=== PATIENT | male | born 1945 | race Caucasian/White ===

== ENCOUNTER 2017-01-23 13:57 | Inpatient (IN) | payer MEDICARE, BC ==
[2017-01-23] MEDS ORDERED: SODIUM CHLORIDE 0.9% 500 ML IV STA (14:13)
[2017-01-23] MEDS ORDERED: SODIUM CHLORIDE 0.9% 1,000 ML IV STA (14:13)
[2017-01-23] MEDS ORDERED: MECLIZINE 12.5 MG TAB PO STA (14:15)
--- NOTE | 2017-01-23 14:40 | ED ---
General Adult HPI - General Chief complaint: Syncope Stated complaint: Near Syncope Time Seen by Provider: 01/23/17 14:07 Source: EMS Mode of arrival: EMS Limitations: no limitations - History of Present Illness Initial comments: This 71-year-old white male presents with a complaint of some dizziness which started yesterday. He describes it as a lightheadedness or unsteadiness but not a spinning sensation. He states that he fell 3 times yesterday. He did obtain some back pain in his lumbar spine. He denies any other injuries. He denies any head injury, neck pain, or thoracic pain. He denies any chest pain, shortness of breath, abdominal pain, fevers, or recent infections. There is been no urinary symptoms. He states that he has had similar symptoms in the past due to hypoglycemia. He is a diabetic and is also blind. He denies any other complaints or modifying factors. - Related Data Home Medications Medication Instructions Recorded Confirmed metFORMIN HCL [Glucophage] 500 mg PO BID 05/05/16 01/23/17 sitaGLIPtin [Januvia] 100 mg PO DAILY 05/05/16 01/23/17 Previous Rx's Medication Instructions Recorded Lisinopril [Prinivil] 5 mg PO DAILY #30 tab 02/23/16 Allergies Allergy/AdvReac Type Severity Reaction Status Date / Time hydrocodone bitartrate AdvReac Nausea Verified 01/23/17 14:33 [From Vicodin] Review of Systems ROS Statement: Those systems with pertinent positive or pertinent negative responses have been documented in the HPI. ROS Other: All systems not noted in ROS Statement are negative. 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; right sided deficits from previous stroke History of Any Multi-Drug Resistant Organisms: None Reported Past Surgical History: No Surgical Hx Reported Additional Past Surgical History / Comment(s): unknown Past Anesthesia/Blood Transfusion Reactions: No Reported Reaction Past Psychological History: No Psychological Hx Reported Smoking Status: Former smoker Past Alcohol Use History: None Reported Past Drug Use History: None Reported - Past Family History Father Family Medical History: Diabetes Mellitus Mother Family Medical History: Dementia, Diabetes Mellitus Brother(s) Family Medical History: Unable to Obtain General Exam - General Exam Comments Initial Comments: GENERAL: The patient is well nourished and well hydrated. VITAL SIGNS: Heart rate, blood pressure, respiratory rate reviewed as recorded in nurse's notes. EYES: There is a whitish opacification noted over both corneas. ENT: No external evidence of injury, swelling, or ecchymosis. Airway is patent. Throat is clear. NECK: Nontender. No swelling or evidence of injury. No subcutaneous emphysema. Trachea is midline. No thyroid mass. HEART: Regular rate and rhythm. Good peripheral pulses. LUNGS/CHEST: Breath sounds clear and equal bilaterally. No rales, rhonchi, or wheezes. No ecchymosis, subcutaneous emphysema, or tenderness. ABDOMEN: Abdomen soft without tenderness. No palpable masses or organomegaly. No peritoneal signs. No abdominal wall swelling or ecchymosis. EXTREMITIES: No extremity tenderness. Normal muscle tone and function. There is mild tenderness noted to the perilumbar musculature. There is no step-off deformities noted. NEUROLOGIC: Sensation is grossly intact. Cranial nerve exam reveals face is symmetrical, tongue is midline, speech is clear. SKIN: No abrasions or ecchymosis is noted. No induration or masses noted. PSYCHIATRIC: Alert and oriented. Appropriate behavior and judgment. Limitations: no limitations Course Vital Signs 01/23/17 01/23/17 01/23/17 14:07 14:18 16:16 Temperature 98.7 F Pulse Rate 105 H 83 Respiratory 20 18 Rate Blood Pressure 212/105 176/84 129/71 O2 Sat by Pulse 93 L 93 L Oximetry Medical Decision Making - Medical Decision Making The patient was seen and examined. All diagnostics were reviewed. An IV is started he is mildly hydrated. He also receives Antivert. His laboratory does show slightly elevated blood glucose but no other acute processes. The computed tomography scan of the brain showed some incidental findings but no acute process. The chest x-ray is negative for acute process. The x-ray of the lumbar spine shows an old T12 compression fracture with degenerative changes and spondylolisthesis. On recheck, he is still dizzy. He now states that he fell a total of 4 times. He apparently fell 3 times yesterday and once today. He denies any syncopal episodes. Overall, I do not feel as though he safe to be discharged home as he is blind, falling, and dizzy. He may need additional home care for further ECF placement. The case will be discussed with internal medicine and admitted to the hospital for further treatment. Exact cause of his dizziness is not definitively determined. On reexamination his blood pressures 226/108 and he will receive some labetalol intravenously. The troponin came back mildly elevated as well and he receives some aspirin as well as Nitropaste. - Lab Data Result diagrams: 01/23/17 14:25 01/23/17 15:28 Lab Results 01/23/17 01/23/17 01/23/17 Range/Units 14:25 15:28 15:28 WBC 8.6 (3.8-10.6) k/uL RBC 4.16 L (4.30-5.90) m/uL Hgb 13.1 (13.0-17.5) gm/dL Hct 37.8 L (39.0-53.0) % MCV 90.9 (80.0-100.0) fL MCH 31.5 (25.0-35.0) pg MCHC 34.6 (31.0-37.0) g/dL RDW 13.2 (11.5-15.5) % Plt Count 247 (150-450) k/uL Neutrophils % 56 % Lymphocytes % 31 % Monocytes % 9 % Eosinophils % 1 % Basophils % 1 % Neutrophils # 4.8 (1.3-7.7) k/uL Lymphocytes # 2.7 (1.0-4.8) k/uL Monocytes # 0.8 (0-1.0) k/uL Eosinophils # 0.1 (0-0.7) k/uL Basophils # 0.1 (0-0.2) k/uL PT 10.3 (9.0-12.0) sec INR 1.0 (<1.2) APTT 22.9 (22.0-30.0) sec Sodium 140 (137-145) mmol/L Potassium 4.2 (3.5-5.1) mmol/L Chloride 102 (98-107) mmol/L Carbon Dioxide 28 (22-30) mmol/L Anion Gap 10 mmol/L BUN 20 (9-20) mg/dL Creatinine 0.98 (0.66-1.25) mg/dL Est GFR (MDRD) Af Amer >60 (>60 ml/min/1.73 sqM) Est GFR (MDRD) Non-Af >60 (>60 ml/min/1.73 sqM) Glucose 179 H (74-99) mg/dL Calcium 8.7 (8.4-10.2) mg/dL Phosphorus 3.2 (2.5-4.5) mg/dL Magnesium 1.6 (1.6-2.3) mg/dL Total Bilirubin 0.8 (0.2-1.3) mg/dL AST 18 (17-59) U/L ALT 32 (21-72) U/L Alkaline Phosphatase 107 (38-126) U/L Total Creatine Kinase (55-170) U/L CK-MB (CK-2) (0.0-2.4) ng/mL CK-MB (CK-2) Rel Index Troponin I (0.000-0.034) ng/mL Total Protein 6.6 (6.3-8.2) g/dL Albumin 3.8 (3.5-5.0) g/dL 01/23/17 Range/Units 15:28 WBC (3.8-10.6) k/uL RBC (4.30-5.90) m/uL Hgb (13.0-17.5) gm/dL Hct (39.0-53.0) % MCV (80.0-100.0) fL MCH (25.0-35.0) pg MCHC (31.0-37.0) g/dL RDW (11.5-15.5) % Plt Count (150-450) k/uL Neutrophils % % Lymphocytes % % Monocytes % % Eosinophils % % Basophils % % Neutrophils # (1.3-7.7) k/uL Lymphocytes # (1.0-4.8) k/uL Monocytes # (0-1.0) k/uL Eosinophils # (0-0.7) k/uL Basophils # (0-0.2) k/uL PT (9.0-12.0) sec INR (<1.2) APTT (22.0-30.0) sec Sodium (137-145) mmol/L Potassium (3.5-5.1) mmol/L Chloride (98-107) mmol/L Carbon Dioxide (22-30) mmol/L Anion Gap mmol/L BUN (9-20) mg/dL Creatinine (0.66-1.25) mg/dL Est GFR (MDRD) Af Amer (>60 ml/min/1.73 sqM) Est GFR (MDRD) Non-Af (>60 ml/min/1.73 sqM) Glucose (74-99) mg/dL Calcium (8.4-10.2) mg/dL Phosphorus (2.5-4.5) mg/dL Magnesium (1.6-2.3) mg/dL Total Bilirubin (0.2-1.3) mg/dL AST (17-59) U/L ALT (21-72) U/L Alkaline Phosphatase (38-126) U/L Total Creatine Kinase 61 (55-170) U/L CK-MB (CK-2) 1.2 (0.0-2.4) ng/mL CK-MB (CK-2) Rel Index 2.0 Troponin I 0.043 H* (0.000-0.034) ng/mL Total Protein (6.3-8.2) g/dL Albumin (3.5-5.0) g/dL Disposition Clinical Impression: Dizziness, Multiple falls, Lumbar back pain, Hyperglycemia, Diabetes, Hypertensive crisis, Elevated troponin, Inability to walk Disposition: ADMITTED IP TO THIS [facility] Condition: Fair Time of Disposition: 16:26 Decision Date: 01/23/17 Decision Time: 16:26
[2017-01-23 14:42] LABS: Basophils # (A) 0.1 k/uL (0-0.2); Basophils % (A) 1 %; CH 30.7; CHCM 33.9; Eosinophils # (A) 0.1 k/uL (0-0.7); Eosinophils % (A) 1 %; HCT 37.8 % (39.0-53.0); HDW 3.21; HGB 13.1 gm/dL (13.0-17.5); Luc # (Auto) 0.23; Luc % (Auto) 3; Lymphocytes # (A) 2.7 k/uL (1.0-4.8); Lymphocytes % (A) 31 %; MCH 31.5 pg (25.0-35.0); MCHC 34.6 g/dL (31.0-37.0); MCV 90.9 fL (80.0-100.0); Mean Platelet Volume 8.2; Monocytes # (A) 0.8 k/uL (0-1.0); Monocytes % (A) 9 %; Neutrophils # (A) 4.8 k/uL (1.3-7.7); Neutrophils % (A) 56 %; RBC 4.16 m/uL (4.30-5.90); RDW 13.2 % (11.5-15.5); WBC 8.6 k/uL (3.8-10.6); WBC (Perox) 8.87
--- NOTE | 2017-01-23 15:17 | CT ---
EXAMINATION TYPE: CT brain wo con DATE OF EXAM: 01/23/2017 COMPARISON: Previous study dated 05/28/2015. HISTORY: Dizziness and near syncope. CT DLP: 1156.00 mGycm Automated exposure control for dose reduction was used. FINDINGS: There are moderate changes of sulcal prominence and ventriculomegaly, compatible with atrophic change . There is diffuse periventricular white matter lucency, compatible with chronic white matter ischemi c change. There is no acute focal lesion, mass effect or midline shift identified. I do not see evide nce of intracranial blood. There is a 2.8 cm retention cyst or polyp involving the left maxillary sinus. Visualized portions of the paranasal sinuses and mastoids are otherwise clear. IMPRESSION: 1. NO ACUTE INTRACRANIAL ABNORMALITY. 2. ATROPHIC CHANGE. 3. CHRONIC WHITE MATTER ISCHEMIC CHANGE. 4. 2.8 CM LEFT MAXILLARY RETENTION CYST OR POLYP.
--- NOTE | 2017-01-23 15:25 | XR ---
EXAMINATION TYPE: XR chest 2V DATE OF EXAM: 01/23/2017 COMPARISON: NONE HISTORY: Dizziness and fall TECHNIQUE: Frontal and lateral views of the chest are obtained. FINDINGS: There are low lung volumes. There is no focal air space opacity, pleural effusion, or pneum othorax seen. The cardiac silhouette size is within normal limits. The osseous structures are inta ct. Mild degenerative changes of the thoracic spine are noted. IMPRESSION: No acute cardiopulmonary process.
--- NOTE | 2017-01-23 15:25 | XR ---
EXAMINATION TYPE: XR foot limited LT , 2 VIEWS DATE OF EXAM ORDERED: 01/23/2017 HISTORY: Pain. COMPARISON: None. FINDINGS: There is moderately severe degenerative changes in the left first MTP joint. No fracture, dislocation or osseous destructive lesion is seen. There is vascular calcification. There is a planta r calcaneal spur. IMPRESSION: 1. NO ACUTE OSSEOUS LESION. 2. DEGENERATIVE CHANGE.
--- NOTE | 2017-01-23 15:26 | XR ---
EXAM TYPE: LUMBAR SPINE X RAY SERIES COMPARISON: 05/05/2016 HISTORY: Pain TECHNIQUE: 3 views are submitted. FINDINGS: Alignment is anatomic. The pedicles are intact. The transverse processes are intact. There is no s pondylolysis or spondylolisthesis. Diffuse osteopenia noted. There is a grade 1 anterolisthesis L4 a nd L5. Multilevel moderate to severe degenerative disc disease. Very mild superior endplate deformity T12. IMPRESSION: 1. Multilevel degenerative disc disease with the stable appearing mild wedge deformity T12. 2. Grade 1 anterolisthesis L4 on L5..
[2017-01-23 15:42] LABS: Partial Thromboplastin Time 22.9 sec (22.0-30.0); Prothrombin Time 10.3 sec (9.0-12.0)
[2017-01-23 15:50] LABS: ALT 32 U/L (21-72); AST 18 U/L (17-59); Alkaline Phosphatase 107 U/L (38-126); Anion Gap 10 mmol/L; Blood Urea Nitrogen 20 mg/dL (9-20); Calcium 8.7 mg/dL (8.4-10.2); Carbon Dioxide 28 mmol/L (22-30); Chloride 102 mmol/L (98-107); Glucose 179 mg/dL (74-99); Magnesium 1.6 mg/dL (1.6-2.3); Non-African American GFR(MDRD) >60 (>60 ml/min/1.73 sqM); Phosphorous 3.2 mg/dL (2.5-4.5); Potassium 4.2 mmol/L (3.5-5.1); Sodium 140 mmol/L (137-145); Total Bilirubin 0.8 mg/dL (0.2-1.3); Total Protein 6.6 g/dL (6.3-8.2)
[2017-01-23] MEDS ORDERED: LABETALOL 5 MG/ML VIAL MDV IVP STA (16:04)
[2017-01-23 16:10] LABS: Creatine Kinase MB 1.2 ng/mL (0.0-2.4)
[2017-01-23 16:12] LABS: Troponin I 0.043 ng/mL (0.000-0.034)
[2017-01-23] MEDS ORDERED: ASPIRIN 81 MG PO STA (16:25)
[2017-01-23] MEDS ORDERED: NITROGLYCERIN OINT 1 INCH/GM PACKET TOPICAL STA (16:25)
[2017-01-23] MEDS ORDERED: NITROGLYCERIN SL TABS 0.4 MG TAB SUBLINGUAL PRN (16:28)
[2017-01-23] MEDS ORDERED: LABETALOL 5 MG/ML VIAL MDV IVP PRN (16:32)
[2017-01-23] MEDS ORDERED: MECLIZINE 25 MG TAB PO PRN (16:34)
[2017-01-23 17:28] LABS: Glucose,Whole Blood 164 mg/dL (75-99)
[2017-01-23] MEDS: NITROGLYCERIN OINT 1 INCH/GM PACKET TOPICAL SCH ×2 (17:52→23:08)
[2017-01-23] MEDS: metFORMIN 500 MG TAB PO SCH (17:52)
[2017-01-23] MEDS: INSULIN LISPRO (humaLOG) 300 UNIT/3 ML VIAL SQ SCH ×2 (17:52→21:15)
[2017-01-23 21:13] LABS: Glucose,Whole Blood 154 mg/dL (75-99)
[2017-01-23 21:45] LABS: Creatine Kinase MB 1.2 ng/mL (0.0-2.4)
[2017-01-23 21:50] LABS: Troponin I 0.04 ng/mL (0.000-0.034)
[2017-01-23 22:20] LABS: Hemoglobin A1C 7.3 % (4.2-6.1)
[2017-01-24 03:31] LABS: Appearance,Urine Clear (Clear); Bilirubin,Urine Negative (Negative); Glucose,Urine (UA) Negative (Negative); Ketones,Urine Negative (Negative); Leukocyte Esterase,Urine Negative (Negative); Nitrite,Urine Negative (Negative); PH, Urine 5.5 (5.0-8.0); Particle Count 686; Protein,Urine 1+ (Negative); RBC,Urine <1 /hpf (0-5); Specific Gravity,Urine 1.007 (1.001-1.035); UA Billing (MACRO vs. MICRO) MICRO; Urobilinogen,Urine <2.0 mg/dL (<2.0); WBC,Urine 2 /hpf (0-5)
[2017-01-24 04:00] LABS: Creatine Kinase MB 1.1 ng/mL (0.0-2.4)
[2017-01-24 04:08] LABS: Troponin I 0.037 ng/mL (0.000-0.034)
[2017-01-24 04:22] LABS: Cholesterol 156 mg/dL (<200); HDL Cholesterol 33 mg/dL (40-60)
[2017-01-24 05:51] LABS: Glucose,Whole Blood 130 mg/dL (75-99)
[2017-01-24] MEDS: INSULIN LISPRO (humaLOG) 300 UNIT/3 ML VIAL SQ SCH ×4 (06:03→21:19)
[2017-01-24] MEDS: NITROGLYCERIN OINT 1 INCH/GM PACKET TOPICAL SCH ×4 (06:29→23:19)
[2017-01-24] MEDS ORDERED: LISINOPRIL 5 MG TAB PO SCH (09:00)
[2017-01-24] MEDS: metFORMIN 500 MG TAB PO SCH ×2 (09:38→17:37)
[2017-01-24] MEDS: LINAGLIPTIN 5 MG TABLET PO SCH (13:34)
[2017-01-24] MEDS: ASPIRIN 325 MG TAB PO SCH (13:34)
[2017-01-24] MEDS: SODIUM CHLORIDE 0.9% 1,000 ML IV SCH ×2 (13:37→23:19)
[2017-01-24 14:07] LABS: Glucose,Whole Blood 138 mg/dL (75-99)
--- NOTE | 2017-01-24 14:40 | P.HPIM ---
History of Present Illness This 71-year-old white male presents with a complaint of some dizziness which started yesterday. He describes it as a lightheadedness or unsteadiness but not a spinning sensation. He states that he fell 3 times yesterday. He did obtain some back pain in his lumbar spine. He denies any other injuries. He denies any head injury, neck pain, or thoracic pain. He denies any chest pain, shortness of breath, abdominal pain, fevers, or recent infections. There is been no urinary symptoms. He states that he has had similar symptoms in the past due to hypoglycemia. He is a diabetic and is also blind. He denies any other complaints or modifying factors. Patient denied any chest pain no significant ST-T wave changes on the EKG, patient had minimal elevated troponins of 0.03 and 0.04 and which is stable at that level because of which patient was admitted yesterday. I do not believe patient has an acute coronary syndromes. Patient's falls are probably because of his blindness and will need occupational therapy help and patient has generalized deconditioning will need physical therapy may need to be discharged to subacute rehabilitation. Will opt an echocardiogram to make sure there are no new wall motion abnormalities patient's previous echocardiogram was reviewed which was essentially within normal limits except for some anterobasal wall motion abnormalities. Review of Systems REVIEW OF SYSTEMS: CONSTITUTIONAL: No fever, no malaise, no fatigue. HEENT: No recent visual problems or hearing problems. Denied any sore throat. CARDIOVASCULAR: No chest pain, orthopnea, PND, no palpitations, PULMONARY: No shortness of breath, no cough, no hemoptysis. GASTROINTESTINAL: No diarrhea, no nausea, no vomiting, no abdominal pain. Normoactive bowel sounds. NEUROLOGICAL: No headaches, no weakness, no numbness. HEMATOLOGICAL: Denies any bleeding or petechiae. GENITOURINARY: Denies any burning micturition, frequency, or urgency. MUSCULOSKELETAL/RHEUMATOLOGICAL: Denies any joint pain, swelling, or any muscle pain. ENDOCRINE: Denies any polyuria or polydipsia. The rest of the 14-point review of systems is negative. 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 ddd, old t12 compression fx, spopndylothesis ( per chest xray) History of Any Multi-Drug Resistant Organisms: None Reported Past Surgical History: No Surgical Hx Reported Additional Past Surgical History / Comment(s): unknown Past Anesthesia/Blood Transfusion Reactions: No Reported Reaction Smoking Status: Former smoker - Past Family History Father Family Medical History: Diabetes Mellitus Mother Family Medical History: Dementia, Diabetes Mellitus Brother(s) Family Medical History: Unable to Obtain Medications and Allergies Home Medications Medication Instructions Recorded Confirmed Type metFORMIN HCL [Glucophage] 500 mg PO BID 05/05/16 01/23/17 History sitaGLIPtin [Januvia] 100 mg PO DAILY 05/05/16 01/23/17 History Allergies Allergy/AdvReac Type Severity Reaction Status Date / Time hydrocodone bitartrate AdvReac Nausea Verified 01/23/17 14:33 [From Vicodin] Physical Exam Vitals: Vital Signs Temp Pulse Pulse Resp BP BP Pulse Ox 01/24/17 11:47 100.3 F H 95 16 168/100 95 01/24/17 08:00 99.8 F H 95 16 132/73 95 01/24/17 04:00 97.0 F L 89 14 142/80 96 01/23/17 23:09 97.6 F 84 16 98/60 94 L 01/23/17 20:00 98.3 F 92 16 148/68 98 01/23/17 18:30 97.2 F L 87 17 189/101 96 01/23/17 16:16 83 18 129/71 93 L Intake and Output 01/23/17 01/24/17 01/24/17 22:59 06:59 14:59 Intake Total 0 Output Total 25 350 Balance -25 -350 Intake: Intake, IV Titration 0 Amount Sodium Chloride 0.9% 1, 0 000 ml @ 100 mls/hr IV . Q10H STA Rx#:[id number] Output: Urine 25 350 Other: Voiding Method Urinal Urinal Urinal Diaper Diaper Diaper # Voids 1 Weight 90.5 kg PHYSICAL EXAMINATION: GENERAL: The patient is alert and oriented x3, not in any acute distress. Well developed, well nourished. HEENT: Patient is legally blind No scleral icterus. No conjunctival pallor. Normocephalic, atraumatic. No pharyngeal erythema. No thyromegaly. CARDIOVASCULAR: S1 and S2 present. No murmurs, rubs, or gallops. PULMONARY: Chest is clear to auscultation, no wheezing or crackles. ABDOMEN: Soft, nontender, nondistended, normoactive bowel sounds. No palpable organomegaly. MUSCULOSKELETAL: No joint swelling or deformity. EXTREMITIES: No cyanosis, clubbing, or pedal edema. NEUROLOGICAL: Gross neurological examination did not reveal any focal deficits. SKIN: No rashes. Results CBC & Chem 7: 01/23/17 14:25 01/23/17 15:28 Labs: Abnormal Lab Results - Last 24 Hours (Table) 01/23/17 01/23/17 01/23/17 Range/Units 14:25 15:28 15:28 RBC 4.16 L (4.30-5.90) m/uL Hct 37.8 L (39.0-53.0) % Glucose 179 H (74-99) mg/dL POC Glucose (mg/dL) (75-99) mg/dL Hemoglobin A1c (4.2-6.1) % Total Creatine Kinase (55-170) U/L Troponin I 0.043 H* (0.000-0.034) ng/mL Triglycerides (<150) mg/dL HDL Cholesterol (40-60) mg/dL Urine Protein (Negative) 01/23/17 01/23/17 01/23/17 Range/Units 17:24 20:52 20:52 RBC (4.30-5.90) m/uL Hct (39.0-53.0) % Glucose (74-99) mg/dL POC Glucose (mg/dL) 164 H (75-99) mg/dL Hemoglobin A1c 7.3 H (4.2-6.1) % Total Creatine Kinase 53 L (55-170) U/L Troponin I 0.040 H* (0.000-0.034) ng/mL Triglycerides (<150) mg/dL HDL Cholesterol (40-60) mg/dL Urine Protein (Negative) 01/23/17 01/24/17 01/24/17 Range/Units 21:12 02:57 02:57 RBC (4.30-5.90) m/uL Hct (39.0-53.0) % Glucose (74-99) mg/dL POC Glucose (mg/dL) 154 H (75-99) mg/dL Hemoglobin A1c (4.2-6.1) % Total Creatine Kinase 51 L (55-170) U/L Troponin I 0.037 H* (0.000-0.034) ng/mL Triglycerides 218 H (<150) mg/dL HDL Cholesterol 33 L (40-60) mg/dL Urine Protein (Negative) 01/24/17 01/24/17 01/24/17 Range/Units 03:15 05:50 11:55 RBC (4.30-5.90) m/uL Hct (39.0-53.0) % Glucose (74-99) mg/dL POC Glucose (mg/dL) 130 H 138 H (75-99) mg/dL Hemoglobin A1c (4.2-6.1) % Total Creatine Kinase (55-170) U/L Troponin I (0.000-0.034) ng/mL Triglycerides (<150) mg/dL HDL Cholesterol (40-60) mg/dL Urine Protein 1+ H (Negative) Thrombosis Risk Factor Assmnt - Choose All That Apply Any of the Below Risk Factors Present?: Yes Each Factor Represents 1 point: Abnormal pulmonary function (COPD), Obesity ( BMI >25) Other Risk Factors: Yes Each Risk Factor Represents 2 Points: Age 61-74 years Other congenital or acquired thrombophilia - If yes, enter type in comment: No Thrombosis Risk Factor Assessment Total Risk Factor Score: 4 Thrombosis Risk Factor Assessment Level: Moderate Risk Assessment and Plan Plan: #1 fall: Probably because of his visual issues and legal blindness. Patient will need occupational therapy. Patient had does have generalized deconditioning. Never had any syncopal episode. #2 low-grade fever: No signs or symptoms of a of infection were appreciated will obtain blood cultures monitor him here today patient will not be started on antibiotics yet. #3 minimal elevation of troponins: Etiology of elevated troponins is not clear at this time but does not appear to have non-ST elevation myocardial infarction not high enough to say non-ST elevation microinfarction patient doesn't have any other symptoms will continue with his aspirin and statin. #4 generalized deconditioning: Patient will need physical therapy may need to go to rehabilitation subacute. #5 type 2 diabetes mellitus: Well controlled blood sugars will continue with the home regimen. #6 COPD without any acute exacerbation. #7 hypertension: Well-controlled blood pressures continue the same dose of lisinopril
[2017-01-24 17:00] LABS: Glucose,Whole Blood 139 mg/dL (75-99)
--- NOTE | 2017-01-24 18:12 | ECHOF ---
Referral Reason:elevated troponins MEASUREMENTS -------- HEIGHT: 157.5 cm WEIGHT: 90.3 kg BP: 168/100 IVSd: 1.4 cm (0.6 - 1.1) LVIDd: 4.5 cm (3.9 - 5.3) LVPWd: 1.6 cm (0.6 - 1.1) IVSs: 1.6 cm LVIDs: 3.8 cm LVPWs: 1.7 cm Ao Diam: 3.6 cm (2.0 - 3.7) AV Cusp: 1.8 cm (1.5 - 2.6) LA Diam: 3.6 cm (2.7 - 3.8) MV EXCURSION: 9.718 mm (> 18.000) MV EF SLOPE: 75 mm/s (70 - 150) EPSS: 2.2 cm MV E Sanchez: 1.19 m/s MV DecT: 300 ms MV A Sanchez: 1.63 m/s MV E/A Ratio: 0.73 AV maxP.57 mmHg AV meanP.01 mmHg AR PHT: 930 ms RAP: 5.00 mmHg RVSP: 12.24 mmHg FINDINGS -------- This was a technically difficult study with suboptimal views. There is moderate concentric left ventricular hypertrophy. Overall left ventricular systolic function is mild-moderately impaired with, an EF between 40 - 45 %. Inferiorlateral Hypokinesis Inferior basal Hypokinesis The right ventricle is normal in size and function. The left atrium is normal in size. The right atrium is normal in size. 1.5mg of Definity was utilized for enhancement of images Aortic valve is trileaflet and is mildly thickened. There is mild aortic stenosis present. Peak/mean gradient across the Aortic Valve is 17.57mmHg / 9.01mmHg. The mitral valve leaflets are mildly thickened. Mild mitral annular calcification present. Mild mitral regurgitation is present. Mild tricuspid regurgitation present. The right ventricular systolic pressure, as measured by Doppler, is 12.24mmHg. Pulmonic valve appears structurally normal. The aortic root size is normal. The pericardium is normal. CONCLUSIONS -------- 1. This was a technically difficult study with suboptimal views. 2. There is mild aortic stenosis present. 3. Peak/mean gradient across the Aortic Valve is 17.57mmHg / 9.01mmHg. 4. The mitral valve leaflets are mildly thickened. 5. Mild mitral annular calcification present. 6. Mild mitral regurgitation is present. 7. Mild tricuspid regurgitation present. 8. The right ventricular systolic pressure, as measured by Doppler, is 12.24mmHg. 9. Pulmonic valve appears structurally normal. 10. The aortic root size is normal. 11. The pericardium is normal. 12. There is moderate concentric left ventricular hypertrophy. 13. Inferiorlateral Hypokinesis 14. Inferior basal Hypokinesis 15. The right ventricle is normal in size and function. 16. The left atrium is normal in size. 17. The right atrium is normal in size. 18. 1.5mg of Definity was utilized for enhancement of images 19. Aortic valve is trileaflet and is mildly thickened. OUTREACH REPRESENTATIVE: Brenda Ragland RDCS
[2017-01-24 20:46] LABS: Glucose,Whole Blood 127 mg/dL (75-99)
[2017-01-24] MEDS ORDERED: LISINOPRIL 2.5 MG TAB PO SCH (23:45)
[2017-01-25] MEDS ORDERED: LISINOPRIL 5 MG TAB PO SCH (00:58)
[2017-01-25] MEDS: CARVEDILOL 6.25 MG TAB PO SCH ×2 (02:17→06:53)
[2017-01-25] MEDS: NITROGLYCERIN OINT 1 INCH/GM PACKET TOPICAL SCH ×4 (05:18→23:27)
[2017-01-25 06:16] LABS: Glucose,Whole Blood 136 mg/dL (75-99)
[2017-01-25] MEDS: INSULIN LISPRO (humaLOG) 300 UNIT/3 ML VIAL SQ SCH ×4 (06:53→21:11)
[2017-01-25] MEDS: metFORMIN 500 MG TAB PO SCH ×3 (06:53→18:20)
[2017-01-25] MEDS: LINAGLIPTIN 5 MG TABLET PO SCH (08:33)
[2017-01-25] MEDS: ASPIRIN 325 MG TAB PO SCH (08:33)
[2017-01-25] MEDS: SODIUM CHLORIDE 0.9% 1,000 ML IV SCH ×2 (08:33→17:28)
[2017-01-25] MEDS ORDERED: RX INFO: IV CONTRAST WAS GIVEN 1 EACH MISC MISCELLANE PRN (11:30)
[2017-01-25 12:01] LABS: Glucose,Whole Blood 115 mg/dL (75-99)
--- NOTE | 2017-01-25 12:33 | P.PN ---
Subjective 71-year-old gentleman was admitted secondary to falls which is again secondary to visual issues. Patient is minimally elevated troponin because of which we echocardiac was obtained which showed the similar changes as the previous echocardiogram with infra-basilar inferolateral wall motion abnormalities. Patient was started on beta eduardo. Patient is hypotensive because of which L lisinopril but his can you. Patient was tachycardic because of which I'm obtaining a TSH and d-dimer was opted which is on the high normal side. Because of which my suspicion is extremely low for pulmonary embolism. Patient will be transferred out of [facility] to care. Patient will need placement and help with physical therapy and occupational therapy. Patient will benefit from statin as well. Patient had a low-grade fever all the septic workup is negative and no more episodes of fever. Patient denied any fever, chills, nausea, vomiting Objective - Vital Signs Vital signs: Vital Signs Temp 97.8 F 01/25/17 11:54 Pulse 93 01/25/17 11:54 Resp 20 01/25/17 11:54 BP 104/55 01/25/17 11:54 Pulse Ox 96 01/25/17 11:54 Intake & Output 01/24/17 01/25/17 01/25/17 18:59 06:59 18:59 Intake Total 100 240 120 Balance 100 240 120 Weight 90.4 kg Intake: Oral 100 240 120 Other: Voiding Method Urinal Urinal Urinal Diaper Diaper Diaper # Voids 1 2 - Exam GENERAL: The patient is alert and oriented x3, not in any acute distress. Well developed, well nourished. HEENT: Patient is legally blind No scleral icterus. No conjunctival pallor. Normocephalic, atraumatic. No pharyngeal erythema. No thyromegaly. CARDIOVASCULAR: S1 and S2 present. No murmurs, rubs, or gallops. PULMONARY: Chest is clear to auscultation, no wheezing or crackles. ABDOMEN: Soft, nontender, nondistended, normoactive bowel sounds. No palpable organomegaly. MUSCULOSKELETAL: No joint swelling or deformity. EXTREMITIES: No cyanosis, clubbing, or pedal edema. NEUROLOGICAL: Gross neurological examination did not reveal any focal deficits. SKIN: No rashes. - Labs CBC & Chem 7: 01/23/17 14:25 01/23/17 15:28 Labs: Abnormal Lab Results - Last 24 Hours (Table) 01/24/17 01/24/17 01/24/17 Range/Units 11:55 16:57 20:44 D-Dimer (<0.60) mg/L FEU POC Glucose (mg/dL) 138 H 139 H 127 H (75-99) mg/dL 01/25/17 01/25/17 01/25/17 Range/Units 06:15 11:05 11:58 D-Dimer 0.61 H (<0.60) mg/L FEU POC Glucose (mg/dL) 136 H 115 H (75-99) mg/dL Assessment and Plan Plan: #1 fall: Probably because of his visual issues and legal blindness. Patient will need occupational therapy. Patient had does have generalized deconditioning. Never had any syncopal episode. #2 low-grade fever: Septic workup is negative we'll just monitor 1 more day and patient will not need any antibiotics #3 minimal elevation of troponins: Etiology of elevated troponins is not clear at this time but does not appear to have non-ST elevation myocardial infarction not high enough to say non-ST elevation myocardial patient doesn't have any other symptoms will continue with his aspirin and statin. Patient's ejection fraction remains low at 40-45% patient will benefit from long-term lisinopril patient was started on beta eduardo which is appropriate which will be continued. Patient has similar wall motion abnormalities as previous echocardiogram. #4 generalized deconditioning: Patient will need physical therapy may need to go to rehabilitation subacute. #5 type 2 diabetes mellitus: Well controlled blood sugars will continue with the home regimen. #6 COPD without any acute exacerbation. #7 hypertension: Well-controlled blood pressures continue the same dose of lisinopril #8 tachycardia: Further evaluation as mentioned above patient is sinus tachycardia.
--- NOTE | 2017-01-25 12:51 | CT ---
EXAMINATION TYPE: CT angio chest DATE OF EXAM: 01/25/2017 12:31 PM COMPARISON: NONE HISTORY: elevated d-dimer CT DLP: 607 mGycm Automated exposure control for dose reduction was used. CONTRAST: CTA scan of the thorax is performed with IV Contrast, patient injected with 80 mL of Omnipaque 350, p ulmonary embolism protocol. . FINDINGS: There is minimal dependent atelectasis within the lungs. There is no significant axillary, mediastinal or hilar adenopathy. There is no evidence of pulmonary embolus. The aortic root is prominent measuring 3.7 cm. The proximal arch is aneurysmal at 3.2 cm. The remaind er the aorta is normal in caliber. There is no pleural or pericardial fluid. The heart is enlarged. There is a small hiatal hernia. There is a 2.3 cm right adrenal mass. The remainder of the visualized portions of the upper abdomen a ppear normal. There is degenerative disc disease and hypertrophic spondylosis within the spine. IMPRESSION: 1. THIS EXAMINATION IS NEGATIVE FOR PULMONARY EMBOLUS. 2. CARDIOMEGALY. 3. ASCENDING THORACIC AORTIC ANEURYSM WITH MAXIMAL TRANSVERSE DIAMETER OF 3.7 CM. 4. SMALL HIATAL HERNIA. 5. 2.3 CM LOW ATTENUATING RIGHT ADRENAL MASS. 6. DEGENERATIVE CHANGE WITHIN THE SPINE.
[2017-01-25 16:41] LABS: Glucose,Whole Blood 105 mg/dL (75-99)
[2017-01-25 21:06] LABS: Glucose,Whole Blood 114 mg/dL (75-99)
[2017-01-25] MEDS: METOPROLOL TARTRATE 25 MG TAB PO SCH (21:18)
[2017-01-25] MEDS: HEPARIN SODIUM,PORCINE 5,000 UNIT/ML 1 ML VIAL SQ SCH (21:18)
[2017-01-26] MEDS: HYDROcodone/APAP 5-325MG 1 EACH TAB PO PRN ×2 (02:11→15:40)
[2017-01-26] MEDS: SODIUM CHLORIDE 0.9% 1,000 ML IV SCH ×3 (03:17→23:16)
[2017-01-26 05:58] LABS: Glucose,Whole Blood 141 mg/dL (75-99)
[2017-01-26] MEDS: NITROGLYCERIN OINT 1 INCH/GM PACKET TOPICAL SCH (06:20)
[2017-01-26] MEDS: metFORMIN 500 MG TAB PO SCH ×2 (06:58→17:39)
[2017-01-26] MEDS: INSULIN LISPRO (humaLOG) 300 UNIT/3 ML VIAL SQ SCH ×4 (06:58→20:46)
[2017-01-26] MEDS: HEPARIN SODIUM,PORCINE 5,000 UNIT/ML 1 ML VIAL SQ SCH (07:38)
[2017-01-26] MEDS: METOPROLOL TARTRATE 25 MG TAB PO SCH ×2 (07:38→20:46)
[2017-01-26] MEDS: ASPIRIN 325 MG TAB PO SCH (07:39)
[2017-01-26] MEDS: LINAGLIPTIN 5 MG TABLET PO SCH (07:39)
--- NOTE | 2017-01-26 08:30 | P.CRDCN ---
History of Present Illness Consult date: 01/26/17 Requesting physician: Jaida May Reason for Consult (text): This 71-year-old gentleman with history of diabetes, hypertension, hyperlipidemia, blindness, COPD, prior CVA, who presented to the hospital because of frequent falls at home. According to the patient, he just falls, without warning. He said he does get some brief lightheadedness, he becomes unsteady and that he falls. He denies any syncope, denies any dizziness, no chest pain, no difficulty in breathing. He states that his blood sugars have been running within normal limits. A cardiology consultation was requested because of abnormal troponins. Chest x-ray normal. CAT scan of the brain did not reveal any acute intracranial abnormality. Lumbar spine x-ray revealed multilevel degenerative disc disease. 3 of the foot did not reveal any acute fracture. EKG shows a sinus tachycardia with occasional PACs and a right bundle branch block pattern. CTA of the chest negative for pulmonary embolism. Ascending thoracic aortic aneurysm with maximal transverse diameter of 3.7. 2.3 cm right adrenal mass. Echocardiogram with Doppler study was performed which revealed an ejection fraction of 40-45%. The pressure on arrival here to 12/105, heart rate 105. Oxygen saturation 93% on room air. The patient here has been noted to be running low grade temperatures. Let pressure this morning 145/70, heart rate in the 90s to low 100s. White blood cell count 8.6, hemoglobin 13.1. D-dimer 0.6, potassium 4.2, BUN 20, creatinine 0.9. Hemoglobin A1c 7.3, troponins 0.043, 0.040 0.037. Cholesterol 156 LDL 79 HDL 33 triglycerides 218. TSH level 0.73. Patient's home care issues consist of Januvia, Glucophage, and Prinivil. 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 ddd, old t12 compression fx, spopndylothesis ( per chest xray) History of Any Multi-Drug Resistant Organisms: None Reported Past Surgical History: No Surgical Hx Reported Additional Past Surgical History / Comment(s): unknown Past Anesthesia/Blood Transfusion Reactions: No Reported Reaction Smoking Status: Former smoker - Past Family History Father Family Medical History: Diabetes Mellitus Mother Family Medical History: Dementia, Diabetes Mellitus Brother(s) Family Medical History: Unable to Obtain Medications and Allergies Home Medications Medication Instructions Recorded Confirmed Type Lisinopril [Prinivil] 5 mg PO DAILY #30 tab 02/23/16 01/23/17 Rx metFORMIN HCL [Glucophage] 500 mg PO BID 05/05/16 01/23/17 History sitaGLIPtin [Januvia] 100 mg PO DAILY 05/05/16 01/23/17 History Allergies Allergy/AdvReac Type Severity Reaction Status Date / Time hydrocodone bitartrate AdvReac Nausea Verified 01/23/17 14:33 [From Vicodin] Physical Exam Vitals: Vital Signs Temp Pulse Pulse Resp BP Pulse Ox 01/26/17 07:35 92 106 H 20 01/26/17 07:34 98.1 F 92 20 145/71 96 01/26/17 03:24 93 20 01/26/17 03:23 97.8 F 93 20 121/66 95 01/26/17 00:00 97.5 F L 82 20 139/63 95 01/25/17 20:00 97.3 F L 89 20 132/74 95 01/25/17 15:59 97.6 F 96 20 141/76 96 01/25/17 15:58 93 106 H 20 01/25/17 11:54 97.8 F 93 20 104/55 96 01/25/17 11:29 102 H 106 H 22 Intake and Output 01/25/17 01/26/17 01/26/17 22:59 06:59 14:59 Intake Total 120 240 360 Output Total 200 Balance 120 240 160 Intake: Oral 120 240 360 Output: Urine 200 Other: Voiding Method Urinal Urinal Urinal Diaper Diaper Diaper # Voids 1 Weight 90 kg PHYSICAL EXAMINATION: HEENT: Head is atraumatic, normocephalic. Neck is supple. Patient is blind. There is no elevated jugular venous pressure. HEART EXAMINATION: Heart S1 and S2 systolic murmur is heard. CHEST EXAMINATION: Lungs are clear to auscultation and precussion. No chest wall tenderness is noted on palpation or with deep breathing. ABDOMEN: Soft, nontender. Bowel sounds are heard. No organomegaly noted. EXTREMITIES: 2+ peripheral pulses with evidence of peripheral edema and no calf tenderness noted. NEUROLOGIC patient is awake, alert and oriented -3. . Results 01/23/17 14:25 01/23/17 15:28 Current Medications Generic Name Dose Route Start Last Admin Trade Name Freq PRN Reason Stop Dose Admin Hydrocodone Bitart/Acetaminophen 1 each 01/25/17 01:21 01/26/17 02:11 [place] 5-325 PO 1 each Q6HR PRN Administration Pain Aspirin 325 mg 01/24/17 09:00 01/26/17 07:39 Aspirin PO 325 mg DAILY EKATERINA Administration Heparin Sodium (Porcine) 5,000 unit 01/25/17 21:00 01/26/17 07:38 Heparin SQ 5,000 unit Q12HR EKATERINA Administration Sodium Chloride 1,000 mls @ 100 mls/hr 01/24/17 12:00 01/26/17 03:17 Saline 0.9% IV Not Given .Q10H EKATERINA Insulin Human Lispro 0 unit 01/23/17 17:30 01/26/17 06:58 Humalog SQ 1 unit ACHS EKATERINA Administration Protocol Linagliptin 5 mg 01/24/17 09:00 01/26/17 07:39 Tradjenta PO 5 mg DAILY EKATERINA Administration Meclizine HCl 25 mg 01/23/17 16:34 Antivert PO Q6H PRN dizziness Metformin HCl 500 mg 01/23/17 17:30 01/26/17 06:58 Glucophage PO 500 mg AC-BID EKATERINA Administration Metoprolol Tartrate 25 mg 01/25/17 21:00 01/26/17 07:38 Lopressor PO 25 mg BID EKATERINA Administration Miscellaneous Information 1 each 01/25/17 11:30 Rx Info: Iv Contrast Was Given MISCELLANE 01/27/17 11:31 DAILY PRN Per Protocol Nitroglycerin 1 inch 01/23/17 18:00 01/26/17 06:20 Nitro-Bid Oint TOPICAL 1 inch Q6HR EKATERINA Administration Nitroglycerin 0.4 mg 01/23/17 16:28 Nitrostat SUBLINGUAL Q5M PRN Chest Pain Intake and Output 01/25/17 01/26/17 01/26/17 22:59 06:59 14:59 Intake Total 120 240 360 Output Total 200 Balance 120 240 160 Intake: Oral 120 240 360 Output: Urine 200 Other: Voiding Method Urinal Urinal Urinal Diaper Diaper Diaper # Voids 1 Weight 90 kg 01/23/17 14:25 01/23/17 15:28 EKG Interpretations (text) EKG shows a sinus tachycardia with occasional PAC and right bundle branch block pattern. 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 Evidence of inferior lateral and inferior basal hypokinesia. She did have an echo performed one year ago which revealed an ejection fraction of 45-50%, at that time he was also noted to have basal inferior lateral hypokinesia. We will start the patient on a baby aspirin daily , we will also initiate a statin, low-dose beta eduardo. Further recommendations to follow. Discontinue heparin, discontinue Nitropaste. DNP note has been reviewed, I agree with a documented findings and plan of care. Patient was seen and examined.
[2017-01-26 12:12] LABS: Glucose,Whole Blood 132 mg/dL (75-99)
[2017-01-26 15:08] VITALS: BMI 36.3
[2017-01-26 16:47] LABS: Glucose,Whole Blood 119 mg/dL (75-99)
[2017-01-26 20:42] LABS: Glucose,Whole Blood 146 mg/dL (75-99)
[2017-01-27] MEDS: HYDROcodone/APAP 5-325MG 1 EACH TAB PO PRN ×2 (03:09→23:06)
[2017-01-27 05:59] LABS: Glucose,Whole Blood 120 mg/dL (75-99)
[2017-01-27] MEDS: INSULIN LISPRO (humaLOG) 300 UNIT/3 ML VIAL SQ SCH ×4 (06:11→20:56)
[2017-01-27] MEDS: metFORMIN 500 MG TAB PO SCH ×2 (06:31→17:14)
[2017-01-27] MEDS: LINAGLIPTIN 5 MG TABLET PO SCH (09:16)
[2017-01-27] MEDS: METOPROLOL TARTRATE 25 MG TAB PO SCH ×2 (09:16→20:57)
[2017-01-27] MEDS: ASPIRIN 81 MG PO SCH (09:16)
[2017-01-27 11:49] LABS: Glucose,Whole Blood 156 mg/dL (75-99)
[2017-01-27] MEDS: SODIUM CHLORIDE 0.9% 1,000 ML IV SCH ×2 (12:31→20:56)
--- NOTE | 2017-01-27 12:34 | P.PN ---
Subjective Patient is sitting on the edge of the bed. Blood pressure 142/79 mmHg but upon standing is 129/77 mmHg he was admitted with dizziness. He is legally blind Heart rates are normal in the 80s and 90s he is afebrile Hemoglobin is normal electrolytes are normal and function is normal Impression Adult onset diabetes, type II, on insulin Hypertension Likely dysautonomia Plan His treatment was difficult. He has hypertension but he also has dysautonomia likely related to his diabetes On low-dose beta blockers his blood pressure is still 129/77 upon standing which is a 20 point drop from the sitting position Florinef would be problematic, Midrin is problematic and beta blockers and make it worse Any vasodilator would make it worse He is legally blind and his best option would be a wheelchair, he would not get into trouble in the sitting position Objective - Vital Signs Vital signs: Vital Signs Temp 97.7 F 01/27/17 11:36 Pulse 91 01/27/17 11:36 Resp 18 01/27/17 11:36 BP 142/79 01/27/17 11:36 Pulse Ox 96 01/27/17 11:36 Intake & Output 01/26/17 01/27/17 01/27/17 18:59 06:59 18:59 Intake Total 1220 100 Output Total 500 Balance 720 100 Weight 90 kg 90 kg 90 kg Intake: Oral 1220 100 Output: Urine 500 Other: Voiding Method Urinal Urinal Urinal Diaper Diaper Diaper # Voids 1 4 # Bowel Movements 2 2 - Labs CBC & Chem 7: 01/23/17 14:25 01/23/17 15:28 Labs: Abnormal Lab Results - Last 24 Hours (Table) 01/26/17 01/26/17 01/27/17 Range/Units 16:31 20:41 05:58 POC Glucose (mg/dL) 119 H 146 H 120 H (75-99) mg/dL 01/27/17 Range/Units 11:47 POC Glucose (mg/dL) 156 H (75-99) mg/dL Microbiology - Last 24 Hours (Table) 01/24/17 12:25 Blood Culture - Preliminary Blood No Growth after 48 hours
--- NOTE | 2017-01-27 12:48 | P.PN ---
Subjective This 71-year-old gentleman with history of diabetes, hypertension, hyperlipidemia, blindness, COPD, prior CVA, who presented to the hospital because of frequent falls at home. According to the patient, he just falls, without warning. He said he does get some brief lightheadedness, he becomes unsteady and that he falls. He denies any syncope, denies any dizziness, no chest pain, no difficulty in breathing. He states that his blood sugars have been running within normal limits. A cardiology consultation was requested because of abnormal troponins. Chest x-ray normal. CAT scan of the brain did not reveal any acute intracranial abnormality. Lumbar spine x-ray revealed multilevel degenerative disc disease. 3 of the foot did not reveal any acute fracture. EKG shows a sinus tachycardia with occasional PACs and a right bundle branch block pattern. CTA of the chest negative for pulmonary embolism. Ascending thoracic aortic aneurysm with maximal transverse diameter of 3.7. 2.3 cm right adrenal mass. Echocardiogram with Doppler study was performed which revealed an ejection fraction of 40-45%. The pressure on arrival here to 12/105, heart rate 105. Oxygen saturation 93% on room air. The patient here has been noted to be running low grade temperatures. Let pressure this morning 145/70, heart rate in the 90s to low 100s. White blood cell count 8.6, hemoglobin 13.1. D-dimer 0.6, potassium 4.2, BUN 20, creatinine 0.9. Hemoglobin A1c 7.3, troponins 0.043, 0.040 0.037. Cholesterol 156 LDL 79 HDL 33 triglycerides 218. TSH level 0.73. Patient's home care issues consist of Januvia, Glucophage, and Prinivil. 01-27-17 Patient seen and examined this morning, sitting up in the chair at bedside. No complaints. Denies any dizziness or lightheadedness. Blood pressure 142/70. No evidence of orthostasis. Objective - Vital Signs Vital signs: Vital Signs Temp 97.7 F 01/27/17 11:36 Pulse 91 01/27/17 11:36 Resp 18 01/27/17 11:36 BP 142/79 01/27/17 11:36 Pulse Ox 96 01/27/17 11:36 Intake & Output 01/26/17 01/27/17 01/27/17 18:59 06:59 18:59 Intake Total 1220 100 Output Total 500 Balance 720 100 Weight 90 kg 90 kg 90 kg Intake: Oral 1220 100 Output: Urine 500 Other: Voiding Method Urinal Urinal Urinal Diaper Diaper Diaper # Voids 1 4 # Bowel Movements 2 2 - Exam PHYSICAL EXAMINATION: HEENT: Head is atraumatic, normocephalic. Neck is supple. Patient is blind. There is no elevated jugular venous pressure. HEART EXAMINATION: Heart S1 and S2 systolic murmur is heard. CHEST EXAMINATION: Lungs are clear to auscultation and precussion. No chest wall tenderness is noted on palpation or with deep breathing. ABDOMEN: Soft, nontender. Bowel sounds are heard. No organomegaly noted. EXTREMITIES: 2+ peripheral pulses with evidence of peripheral edema and no calf tenderness noted. NEUROLOGIC patient is awake, alert and oriented -3. . 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 He may be able to be discharged once cleared by his primary. DNP note has been reviewed, I agree with a documented findings and plan of care. Patient was seen and examined.
[2017-01-27 16:35] LABS: Glucose,Whole Blood 103 mg/dL (75-99)
--- NOTE | 2017-01-27 17:49 | P.PN ---
Subjective This is a 70-year-old gentleman with the blindness comes in to the hospital after sustaining a fall patient had a long history of multiple falls. Patient was admitted to the hospital. Patient was also noted to have some sinus tachycardia. Currently lives with 3 roommates Patient was evaluated previously. Patient was slightly tachycardic blood pressures were labile slightly elevated hence patient was started on therapy Physical therapy and occupational therapy were consulted Denies having any new complaints. 01/27/2017 No new overnight events. Orthostatics were borderline Appears to continue have some episodes of tachycardia No fevers chills nausea vomiting diarrhea. Objective - Vital Signs Vital signs: Vital Signs Temp 97.3 F L 01/27/17 15:32 Pulse 85 01/27/17 15:32 Resp 18 01/27/17 15:32 BP 152/86 01/27/17 15:32 Pulse Ox 96 01/27/17 15:32 Intake & Output 01/26/17 01/27/17 01/27/17 18:59 06:59 18:59 Intake Total 1220 160 Output Total 500 50 Balance 720 110 Weight 90 kg 90 kg 90 kg Intake: Oral 1220 160 Output: Urine 500 50 Other: Voiding Method Urinal Urinal Urinal Diaper Diaper Diaper # Voids 1 4 1 # Bowel Movements 2 2 - Exam Exam Physical exam Gen. appearance oriented 3 in no distress Neck is supple no JVD Eyes bilateral cataracts noted Lungs good air entry clear to auscultation no rhonchi or wheezing Heart S1-S2 heard regular rate and rhythm no murmurs appreciated Abdomen is soft nontender no organomegaly bowel sounds are intact Neurologically cranial nerves II-12 grossly intact no focal motor or sensory deficits noted Skin no abnormalities appreciated - Labs CBC & Chem 7: 01/23/17 14:25 01/23/17 15:28 Labs: Abnormal Lab Results - Last 24 Hours (Table) 01/26/17 01/27/17 01/27/17 Range/Units 20:41 05:58 11:47 POC Glucose (mg/dL) 146 H 120 H 156 H (75-99) mg/dL 01/27/17 Range/Units 16:34 POC Glucose (mg/dL) 103 H (75-99) mg/dL Microbiology - Last 24 Hours (Table) 01/24/17 12:25 Blood Culture - Preliminary Blood No Growth after 72 hours Assessment and Plan Plan: #1 mechanical fall #2 indeterminant troponin leak #3 hypertension accelerated without any hypertensive urgency symptoms #4 sinus tachycardia #5 COPD without any acute exacerbation #6 diabetes most type II #7 blindness Plan Fall and safety precautions. Patient appears to be stable. We'll need placement PT OT evaluations are noted Continue monitoring blood pressures Telemetry monitoring No change in management pending placement until after the weekend.
[2017-01-27 20:47] LABS: Glucose,Whole Blood 112 mg/dL (75-99)
[2017-01-28 06:10] LABS: Glucose,Whole Blood 110 mg/dL (75-99)
[2017-01-28] MEDS: HYDROcodone/APAP 5-325MG 1 EACH TAB PO PRN ×2 (06:12→19:50)
[2017-01-28] MEDS: SODIUM CHLORIDE 0.9% 1,000 ML IV SCH ×2 (06:21→18:45)
[2017-01-28] MEDS: INSULIN LISPRO (humaLOG) 300 UNIT/3 ML VIAL SQ SCH ×4 (06:39→21:50)
[2017-01-28] MEDS: metFORMIN 500 MG TAB PO SCH ×2 (06:40→17:35)
[2017-01-28] MEDS: METOPROLOL TARTRATE 25 MG TAB PO SCH ×2 (09:24→21:51)
[2017-01-28] MEDS: ASPIRIN 81 MG PO SCH (09:24)
[2017-01-28] MEDS: LINAGLIPTIN 5 MG TABLET PO SCH (09:24)
[2017-01-28 12:14] LABS: Glucose,Whole Blood 129 mg/dL (75-99)
--- NOTE | 2017-01-28 16:41 | P.PN ---
Subjective This is a 70-year-old gentleman with the blindness comes in to the hospital after sustaining a fall patient had a long history of multiple falls. Patient was admitted to the hospital. Patient was also noted to have some sinus tachycardia. Currently lives with 3 roommates Patient was evaluated previously. Patient was slightly tachycardic blood pressures were labile slightly elevated hence patient was started on therapy Physical therapy and occupational therapy were consulted Denies having any new complaints. 01/27/2017 No new overnight events. Orthostatics were borderline Appears to continue have some episodes of tachycardia No fevers chills nausea vomiting diarrhea. 01/27/2017 No new overnight events reported. Patient denies having any chest pain difficulty breathing nausea vomiting. Did discuss the possibility of patient going to a SN[facility]. Patient is agreeable to this at this time Objective - Vital Signs Vital signs: Vital Signs Temp 97.3 F L 01/28/17 11:32 Pulse 91 01/28/17 12:00 Resp 16 01/28/17 12:00 BP 157/89 01/28/17 11:32 Pulse Ox 98 01/28/17 11:32 Intake & Output 01/27/17 01/28/17 01/28/17 18:59 06:59 18:59 Intake Total 280 Output Total 50 Balance 230 Weight 90 kg 90.5 kg 90.5 kg Intake: Oral 280 Output: Urine 50 Other: Voiding Method Urinal Urinal Incontinent Diaper Diaper # Voids 1 3 # Bowel Movements 2 - Exam Exam Physical exam Gen. appearance oriented 3 in no distress Neck is supple no JVD Eyes bilateral cataracts noted Lungs good air entry clear to auscultation no rhonchi or wheezing Heart S1-S2 heard regular rate and rhythm no murmurs appreciated Abdomen is soft nontender no organomegaly bowel sounds are intact Neurologically cranial nerves II-12 grossly intact no focal motor or sensory deficits noted Skin no abnormalities appreciated - Labs CBC & Chem 7: 01/23/17 14:25 01/23/17 15:28 Labs: Abnormal Lab Results - Last 24 Hours (Table) 01/27/17 01/28/17 01/28/17 Range/Units 20:45 06:09 11:46 POC Glucose (mg/dL) 112 H 110 H 129 H (75-99) mg/dL Microbiology - Last 24 Hours (Table) 01/24/17 12:25 Blood Culture - Preliminary Blood No Growth after 96 hours Assessment and Plan Plan: #1 mechanical fall #2 indeterminant troponin leak #3 hypertension accelerated without any hypertensive urgency symptoms #4 sinus tachycardia #5 COPD without any acute exacerbation #6 diabetes most type II #7 blindness Plan Fall and safety precautions. Patient appears to be stable. We'll need placement PT OT evaluations are noted The public guardian is in place patient may benefit from a long-term placement as well this will be deferred to after the NH discharge. No change in management pending placement until after the weekend.
[2017-01-28 17:23] LABS: Glucose,Whole Blood 126 mg/dL (75-99)
[2017-01-28 21:44] LABS: Glucose,Whole Blood 123 mg/dL (75-99)
[2017-01-29] MEDS: HYDROcodone/APAP 5-325MG 1 EACH TAB PO PRN ×2 (05:05→15:41)
[2017-01-29 07:34] LABS: Glucose,Whole Blood 117 mg/dL (75-99)
[2017-01-29] MEDS: INSULIN LISPRO (humaLOG) 300 UNIT/3 ML VIAL SQ SCH ×4 (08:25→20:34)
[2017-01-29] MEDS: LINAGLIPTIN 5 MG TABLET PO SCH (08:42)
[2017-01-29] MEDS: ASPIRIN 81 MG PO SCH (08:42)
[2017-01-29] MEDS: metFORMIN 500 MG TAB PO SCH ×2 (08:42→17:53)
[2017-01-29] MEDS: METOPROLOL TARTRATE 25 MG TAB PO SCH ×2 (08:42→20:34)
[2017-01-29 11:58] LABS: Glucose,Whole Blood 144 mg/dL (75-99)
--- NOTE | 2017-01-29 16:35 | P.PN ---
Subjective This is a 70-year-old gentleman with the blindness comes in to the hospital after sustaining a fall patient had a long history of multiple falls. Patient was admitted to the hospital. Patient was also noted to have some sinus tachycardia. Currently lives with 3 roommates Patient was evaluated previously. Patient was slightly tachycardic blood pressures were labile slightly elevated hence patient was started on therapy Physical therapy and occupational therapy were consulted Denies having any new complaints. 01/27/2017 No new overnight events. Orthostatics were borderline Appears to continue have some episodes of tachycardia No fevers chills nausea vomiting diarrhea. 01/27/2017 No new overnight events reported. Patient denies having any chest pain difficulty breathing nausea vomiting. Did discuss the possibility of patient going to a SNIF. Patient is agreeable to this at this time 01/29/2017 No new overnight events Patient is doing well Denies having chest pain difficulty breathing nausea vomiting or diarrhea. Objective - Vital Signs Vital signs: Vital Signs Temp 99.0 F 01/29/17 14:59 Pulse 93 01/29/17 14:59 Resp 16 01/29/17 14:59 BP 162/88 01/29/17 14:59 Pulse Ox 93 L 01/29/17 14:59 Intake & Output 01/28/17 01/29/17 01/29/17 18:59 06:59 18:59 Intake Total 240 Output Total 200 Balance -200 240 Weight 90.5 kg Intake: Oral 240 Output: Urine 200 Other: Voiding Method Incontinent Urinal Urinal Incontinent # Voids 1 3 - Exam Exam Physical exam Gen. appearance oriented 3 in no distress Neck is supple no JVD Eyes bilateral cataracts noted Lungs good air entry clear to auscultation no rhonchi or wheezing Heart S1-S2 heard regular rate and rhythm no murmurs appreciated Abdomen is soft nontender no organomegaly bowel sounds are intact Neurologically cranial nerves II-12 grossly intact no focal motor or sensory deficits noted Skin no abnormalities appreciated - Labs CBC & Chem 7: 01/23/17 14:25 01/23/17 15:28 Labs: Abnormal Lab Results - Last 24 Hours (Table) 01/28/17 01/28/17 01/29/17 Range/Units 17:21 21:39 07:31 POC Glucose (mg/dL) 126 H 123 H 117 H (75-99) mg/dL 01/29/17 Range/Units 11:52 POC Glucose (mg/dL) 144 H (75-99) mg/dL Microbiology - Last 24 Hours (Table) 01/24/17 12:25 Blood Culture - Preliminary Blood No Growth after 120 hours Assessment and Plan Plan: #1 mechanical fall #2 indeterminant troponin leak #3 hypertension accelerated without any hypertensive urgency symptoms #4 sinus tachycardia #5 COPD without any acute exacerbation #6 diabetes most type II #7 blindness Plan Fall and safety precautions. Patient appears to be stable. We'll need placement PT OT evaluations are noted The public guardian is in place patient may benefit from a long-term placement as well this will be deferred to after the NH discharge. No change in management pending placement until after the weekend.
[2017-01-29 17:38] LABS: Glucose,Whole Blood 135 mg/dL (75-99)
[2017-01-29 21:03] LABS: Glucose,Whole Blood 156 mg/dL (75-99)
[2017-01-30 07:36] LABS: Glucose,Whole Blood 125 mg/dL (75-99)
[2017-01-30] MEDS: INSULIN LISPRO (humaLOG) 300 UNIT/3 ML VIAL SQ SCH ×2 (07:44→12:23)
[2017-01-30] MEDS: METOPROLOL TARTRATE 25 MG TAB PO SCH (08:09)
[2017-01-30] MEDS: ASPIRIN 81 MG PO SCH (08:09)
[2017-01-30] MEDS: metFORMIN 500 MG TAB PO SCH (08:09)
[2017-01-30] MEDS: LINAGLIPTIN 5 MG TABLET PO SCH (08:09)
[2017-01-30 12:28] LABS: Glucose,Whole Blood 119 mg/dL (75-99)
[2017-01-30] MEDS: HYDROcodone/APAP 5-325MG 1 EACH TAB PO PRN (13:47)
[2017-01-30 14:50] VITALS: BP 149/75; PULSE 84; RESP 14; TEMP 98.9
--- NOTE | 2017-01-30 15:36 | P.DS ---
Providers Date of admission: 01/23/17 16:28 Attending physician: Jaida May Consults: 01/25/17 12:31 Consult Physician Routine Consulting Provider: Preston Tadeo Consult Reason/Comments: Elevated troponins Do you want consulting provider notified?: Yes [facility] care [facility] Course: This is a 70-year-old gentleman with the blindness comes in to the hospital after sustaining a fall patient had a long history of multiple falls. Patient was admitted to the hospital. Patient was also noted to have some sinus tachycardia. Currently lives with 3 roommates Patient was evaluated previously. Patient was slightly tachycardic blood pressures were labile slightly elevated hence patient was started on therapy Physical therapy and occupational therapy were consulted Denies having any new complaints. 01/27/2017 No new overnight events. Orthostatics were borderline Appears to continue have some episodes of tachycardia No fevers chills nausea vomiting diarrhea. 01/27/2017 No new overnight events reported. Patient denies having any chest pain difficulty breathing nausea vomiting. Did discuss the possibility of patient going to a SNIF. Patient is agreeable to this at this time 01/29/2017 No new overnight events Patient is doing well Denies having chest pain difficulty breathing nausea vomiting or diarrhea. Objective - Vital Signs Vital signs: Vital Signs Temp 99.0 F 01/29/17 14:59 Pulse 93 01/29/17 14:59 Resp 16 01/29/17 14:59 BP 162/88 01/29/17 14:59 Pulse Ox 93 L 01/29/17 14:59 Intake & Output 01/28/17 01/29/17 01/29/17 18:59 06:59 18:59 Intake Total 240 Output Total 200 Balance -200 240 Weight 90.5 kg Intake: Oral 240 Output: Urine 200 Other: Voiding Method Incontinent Urinal Urinal Incontinent # Voids 1 3 - Exam Exam Physical exam Gen. appearance oriented 3 in no distress Neck is supple no JVD Eyes bilateral cataracts noted Lungs good air entry clear to auscultation no rhonchi or wheezing Heart S1-S2 heard regular rate and rhythm no murmurs appreciated Abdomen is soft nontender no organomegaly bowel sounds are intact Neurologically cranial nerves II-12 grossly intact no focal motor or sensory deficits noted Skin no abnormalities appreciated Assessment and Plan Plan: #1 mechanical fall #2 indeterminant troponin leak #3 hypertension accelerated without any hypertensive urgency symptoms #4 sinus tachycardia #5 COPD without any acute exacerbation #6 diabetes mellitus type II #7 blindness Plan Fall and safety precautions. It is not safe at home. OT sourav in order to overcome his blindness and further training thereafter for safety issues Patient Condition at Discharge: Fair Plan - Discharge Summary New Discharge Prescriptions: New Aspirin 81 mg PO DAILY Metoprolol Tartrate [Lopressor] 25 mg PO BID tab Continue Lisinopril [Prinivil] 5 mg PO DAILY #30 tab metFORMIN HCL [Glucophage] 500 mg PO BID sitaGLIPtin [Januvia] 100 mg PO DAILY Discharge Medication List Lisinopril [Prinivil] 5 mg PO DAILY #30 tab 02/23/16 [Rx] metFORMIN HCL [Glucophage] 500 mg PO BID 05/05/16 [History] sitaGLIPtin [Januvia] 100 mg PO DAILY 05/05/16 [History] Aspirin 81 mg PO DAILY 01/30/17 [Rx] Metoprolol Tartrate [Lopressor] 25 mg PO BID tab 01/30/17 [Rx] Follow up Appointment(s)/Referral(s): Jeff Quevedo MD [Primary Care Provider] - 1 Week (Office closed, please make a follow up appointment in (1) one week. ) Patient Instructions/Handouts: Type 2 Diabetes in Adults (DC) Activity/Diet/Wound Care/Special Instructions: Adrenal mass to be followed up outpatient activity as tolerated consistent carb diet Discharge Disposition: TRANSFER TO SNF/ECF
== END 2017-01-30 16:35 | DRG 310 ==
LOC: EC 13:57 → 6SEL 16:28 → EEVIPCON 16:28 → 4MS4W 01-28 15:00
PROVIDERS: ADMIT Internal Medicine; ATTEND Internal Medicine
DX: R00.0 Tachycardia, unspecified (principal); E11.65 Type 2 diabetes mellitus with hyperglycemia; I95.9 Hypotension, unspecified; E27.8 Other specified disorders of adrenal gland; I71.2 Thoracic aortic aneurysm, without rupture; J44.9 Chronic obstructive pulmonary disease, unspecified; R29.6 Repeated falls; I45.10 Unspecified right bundle-branch block; I69.30 Unspecified sequelae of cerebral infarction; F45.8 Other somatoform disorders; E78.5 Hyperlipidemia, unspecified; H40.9 Unspecified glaucoma; H54.8 Legal blindness, as defined in USA; I10 Essential (primary) hypertension; M51.36 Other intervertebral disc degeneration, lumbar region; M54.5 Low back pain; R74.8 Abnormal levels of other serum enzymes; R32 Unspecified urinary incontinence; M43.14 Spondylolisthesis, thoracic region; M51.34 Other intervertebral disc degeneration, thoracic region; I49.1 Atrial premature depolarization; Z79.84 Long term (current) use of oral hypoglycemic drugs; Z79.899 Other long term (current) drug therapy; Z88.5 Allergy status to narcotic agent; Z87.891 Personal history of nicotine dependence; W18.30XA Fall on same level, unspecified, initial encounter
CPT/HCPCS: 36415; 70450; 71020; 71275; 72100; 80053; 80061; 81001; 82550; 82553; 83036; 83735; 84100; 84443; 84484; 85025; 85379; 85610; 85730; 87040; 93005; 93306; 94760; 96361; 96374; 99285

== ENCOUNTER 2017-08-11 09:24 | Inpatient (IN) | payer BC, MEDICARE ==
[2017-08-11] MEDS ORDERED: methylPREDNISolone SOD SUCCI 125 MG/2 ML VIAL IV STA (09:32)
[2017-08-11] MEDS ORDERED: IPRATROPIUM-ALBUTEROL 3 ML NEB INHALATION STA (09:32)
--- NOTE | 2017-08-11 09:35 | ED ---
General Adult HPI - General Stated complaint: DIff Breathing Time Seen by Provider: 08/11/17 09:27 Source: patient, EMS, RN notes reviewed Limitations: altered mental status, physical limitation - History of Present Illness Initial comments: Patient is a pleasant 72-year-old male presenting to the emergency department with difficulty in breathing. Patient is on CPAP and provides limited history. Patient admits to feeling shortness of breath. EMS provides majority of history. They state patient was in respiratory distress with respiratory rate around 28 and hypoxic. Decreased air exchange and lung sounds. Patient significantly improved with CPAP. They do report patient does have a history of COPD. - Related Data Home Medications Medication Instructions Recorded Confirmed metFORMIN HCL [Glucophage] 500 mg PO BID 05/05/16 01/23/17 sitaGLIPtin [Januvia] 100 mg PO DAILY 05/05/16 01/23/17 Previous Rx's Medication Instructions Recorded Lisinopril [Prinivil] 5 mg PO DAILY #30 tab 02/23/16 Aspirin 81 mg PO DAILY 01/30/17 Metoprolol Tartrate [Lopressor] 25 mg PO BID tab 01/30/17 Allergies Allergy/AdvReac Type Severity Reaction Status Date / Time hydrocodone bitartrate AdvReac Nausea Verified 01/23/17 14:33 [From Vicodin] Review of Systems ROS Statement: Those systems with pertinent positive or pertinent negative responses have been documented in the HPI. ROS Other: All systems not noted in ROS Statement are negative. 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 ddd, old t12 compression fx, spopndylothesis ( per chest xray) History of Any Multi-Drug Resistant Organisms: None Reported Past Surgical History: No Surgical Hx Reported Additional Past Surgical History / Comment(s): unknown Past Anesthesia/Blood Transfusion Reactions: No Reported Reaction Smoking Status: Former smoker - Past Family History Father Family Medical History: Diabetes Mellitus Mother Family Medical History: Dementia, Diabetes Mellitus Brother(s) Family Medical History: Unable to Obtain General Exam Limitations: altered mental status, physical limitation General appearance: alert Head exam: Present: atraumatic Eye exam: Present: other (Bilateral eye opacification) Neck exam: Present: normal inspection Respiratory exam: Present: respiratory distress (Mild respiratory distress), wheezes, decreased breath sounds Cardiovascular Exam: Present: regular rate, normal rhythm GI/Abdominal exam: Present: soft. Absent: tenderness Extremities exam: Present: normal inspection. Absent: pedal edema, calf tenderness Neurological exam: Present: alert Psychiatric exam: Present: flat affect Skin exam: Present: normal color Course Vital Signs 08/11/17 08/11/17 08/11/17 09:25 09:41 09:42 Temperature 98.9 F Pulse Rate 97 98 Respiratory 16 20 Rate Blood Pressure 170/89 O2 Sat by Pulse 99 Oximetry 08/11/17 10:34 Temperature Pulse Rate 78 Respiratory 17 Rate Blood Pressure 141/81 O2 Sat by Pulse 98 Oximetry EKG Findings - EKG Comments: EKG Findings:: Normal sinus rhythm 90. CT 146. QRS 134. QT 400. QTc 49. Normal axis. Right bundle branch block. No acute ST change. Medical Decision Making - Medical Decision Making Patient reevaluated and resting comfortably in bed with BiPAP on. Patient updated. - Lab Data Result diagrams: 08/11/17 09:38 08/11/17 09:38 Lab Results 08/11/17 08/11/17 08/11/17 Range/Units 09:38 09:38 09:38 WBC 14.7 H (3.8-10.6) k/uL RBC 4.88 (4.30-5.90) m/uL Hgb 13.9 (13.0-17.5) gm/dL Hct 42.9 (39.0-53.0) % MCV 88.0 (80.0-100.0) fL MCH 28.4 (25.0-35.0) pg MCHC 32.3 (31.0-37.0) g/dL RDW 12.8 (11.5-15.5) % Plt Count 317 (150-450) k/uL Neutrophils % 81 % Lymphocytes % 10 % Monocytes % 6 % Eosinophils % 1 % Basophils % 0 % Neutrophils # 12.0 H (1.3-7.7) k/uL Lymphocytes # 1.5 (1.0-4.8) k/uL Monocytes # 0.9 (0-1.0) k/uL Eosinophils # 0.1 (0-0.7) k/uL Basophils # 0.0 (0-0.2) k/uL PT (9.0-12.0) sec INR (<1.2) APTT (22.0-30.0) sec Sodium 136 L (137-145) mmol/L Potassium 4.9 (3.5-5.1) mmol/L Chloride 101 (98-107) mmol/L Carbon Dioxide 24 (22-30) mmol/L Anion Gap 11 mmol/L BUN 22 H (9-20) mg/dL Creatinine 0.80 (0.66-1.25) mg/dL Est GFR (CKD-EPI)AfAm >90 (>60 ml/min/1.73 sqM) Est GFR (CKD-EPI)NonAf 88 (>60 ml/min/1.73 sqM) Glucose 171 H (74-99) mg/dL Calcium 8.8 (8.4-10.2) mg/dL Total Bilirubin 1.4 H (0.2-1.3) mg/dL AST 26 (17-59) U/L ALT 15 L (21-72) U/L Alkaline Phosphatase 114 (38-126) U/L Total Creatine Kinase 82 (55-170) U/L CK-MB (CK-2) 1.3 (0.0-2.4) ng/mL CK-MB (CK-2) Rel Index 1.6 Troponin I 0.027 (0.000-0.034) ng/mL NT-Pro-B Natriuret Pep pg/mL Total Protein 7.1 (6.3-8.2) g/dL Albumin 3.9 (3.5-5.0) g/dL 18 08/11/17 Range/Units 09:38 09:38 WBC (3.8-10.6) k/uL RBC (4.30-5.90) m/uL Hgb (13.0-17.5) gm/dL Hct (39.0-53.0) % MCV (80.0-100.0) fL MCH (25.0-35.0) pg MCHC (31.0-37.0) g/dL RDW (11.5-15.5) % Plt Count (150-450) k/uL Neutrophils % % Lymphocytes % % Monocytes % % Eosinophils % % Basophils % % Neutrophils # (1.3-7.7) k/uL Lymphocytes # (1.0-4.8) k/uL Monocytes # (0-1.0) k/uL Eosinophils # (0-0.7) k/uL Basophils # (0-0.2) k/uL PT 10.4 (9.0-12.0) sec INR 1.1 (<1.2) APTT 23.3 (22.0-30.0) sec Sodium (137-145) mmol/L Potassium (3.5-5.1) mmol/L Chloride (98-107) mmol/L Carbon Dioxide (22-30) mmol/L Anion Gap mmol/L BUN (9-20) mg/dL Creatinine (0.66-1.25) mg/dL Est GFR (CKD-EPI)AfAm (>60 ml/min/1.73 sqM) Est GFR (CKD-EPI)NonAf (>60 ml/min/1.73 sqM) Glucose (74-99) mg/dL Calcium (8.4-10.2) mg/dL Total Bilirubin (0.2-1.3) mg/dL AST (17-59) U/L ALT (21-72) U/L Alkaline Phosphatase (38-126) U/L Total Creatine Kinase (55-170) U/L CK-MB (CK-2) (0.0-2.4) ng/mL CK-MB (CK-2) Rel Index Troponin I (0.000-0.034) ng/mL NT-Pro-B Natriuret Pep 6120 pg/mL Total Protein (6.3-8.2) g/dL Albumin (3.5-5.0) g/dL - Radiology Data Radiology results: image reviewed (Chest x-ray shows mild cardiomegaly. Scarring right lung base.) Disposition Clinical Impression: Acute respiratory failure, Acute exacerbation of chronic obstructive airways disease Disposition: ADMITTED IP TO THIS [facility] Referrals: Leonides Azul MD [Primary Care Provider] - 1-2 days Decision Time: 11:25
[2017-08-11 09:56] LABS: Basophils % (A) 0 %; Eosinophils # (A) 0.1 k/uL (0-0.7); Eosinophils % (A) 1 %; HCT 42.9 % (39.0-53.0); HGB 13.9 gm/dL (13.0-17.5); Lymphocytes # (A) 1.5 k/uL (1.0-4.8); Lymphocytes % (A) 10 %; MCH 28.4 pg (25.0-35.0); MCHC 32.3 g/dL (31.0-37.0); Mean Platelet Volume 7.4; Monocytes # (A) 0.9 k/uL (0-1.0); Monocytes % (A) 6 %; Neutrophils % (A) 81 %; Platelet Count 317 k/uL (150-450); RBC 4.88 m/uL (4.30-5.90); RDW 12.8 % (11.5-15.5); WBC 14.7 k/uL (3.8-10.6)
[2017-08-11 10:04] LABS: INR 1.1 (<1.2); Partial Thromboplastin Time 23.3 sec (22.0-30.0); Prothrombin Time 10.4 sec (9.0-12.0)
[2017-08-11 10:05] LABS: ALT 15 U/L (21-72); AST 26 U/L (17-59); Albumin 3.9 g/dL (3.5-5.0); Alkaline Phosphatase 114 U/L (38-126); Anion Gap 11 mmol/L; Blood Urea Nitrogen 22 mg/dL (9-20); Calcium 8.8 mg/dL (8.4-10.2); Carbon Dioxide 24 mmol/L (22-30); Chloride 101 mmol/L (98-107); Glucose 171 mg/dL (74-99); Sodium 136 mmol/L (137-145); Total Bilirubin 1.4 mg/dL (0.2-1.3); Total Protein 7.1 g/dL (6.3-8.2)
--- NOTE | 2017-08-11 10:05 | XR ---
EXAMINATION TYPE: XR chest 1V portable DATE OF EXAM: 08/11/2017 HISTORY: Dyspnea. REFERENCE: Previous study dated 01/23/2017. FINDINGS: Unfortunately, the patient's chin projects over the upper chest. There is some scarring at the right lung base. The heart is mildly enlarged. The lungs are otherwise clear. Pleural spaces are clear. IMPRESSION: 1. MILD CARDIOMEGALY. 2. SCARRING, RIGHT LUNG BASE.
[2017-08-11 10:06] LABS: Potassium 4.9 mmol/L (3.5-5.1)
[2017-08-11 10:40] LABS: Creatine Kinase MB 1.3 ng/mL (0.0-2.4); Troponin I 0.027 ng/mL (0.000-0.034)
[2017-08-11] MEDS ORDERED: IPRATROPIUM-ALBUTEROL 3 ML NEB INHALATION PRN (11:26)
[2017-08-11] MEDS: IPRATROPIUM-ALBUTEROL 3 ML NEB INHALATION SCH ×3 (11:34→19:10)
[2017-08-11] MEDS ORDERED: methylPREDNISolone SOD SUCCI 125 MG/2 ML VIAL IV SCH (12:00)
[2017-08-11 13:29] VITALS: BMI 31.5
[2017-08-11] MEDS ORDERED: ACETAMINOPHEN TAB 325 MG TAB PO PRN (14:52)
[2017-08-11] MEDS ORDERED: ALPRAZolam 0.25 MG TAB PO PRN (14:53)
[2017-08-11 15:04] LABS: ABG Base Excess 1.4 mmol/L; ABG HCO3 26 mmol/L (21-25); ABG PCO2 43 mmHg (35-45); ABG PH 7.39 (7.35-7.45); ABG PO2 93 mmHg (83-108); ABG TCO2 28 mmol/L (19-24)
--- NOTE | 2017-08-11 15:25 | P.CNPUL ---
History of Present Illness Consult date: 08/11/17 Requesting physician: Tammie Shin Reason for consult: dyspnea Chief complaint: Unknown, however according to the ER physician patient presented with alter History of present illness: This is a 72-year-old white male with history of hypertension, diabetes, legally blind, patient was brought in by EMS mostly because of shortness of breath. Apparently when EMS arrived to pick him up, patient was noted to be hypoxic, and tachypneic. He had diminished breath sounds at the bases, patient was placed on CPAP at 100%, and brought in to the hospital with the presumptive COPD exacerbation. The patient himself is a poor historian, patient is not verbal, and does not seem to comprehend any questions and basically not answering any of them. Patient is legally blind, presently on BiPAP, and does not seem to be in any form of distress. Looking back at previous admissions, his last admission in December of 2016 was related to a fall, and his problems at the time included legal blindness, diabetes, COPD, sinus tachycardia, and hypertension. Previous cardiac workup was nondiagnostic. Previous CT of the chest showed no evidence of thromboembolic disease, and minimal dependent atelectasis within the lungs. 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 ddd, old t12 compression fx, spopndylothesis ( per chest xray) History of Any Multi-Drug Resistant Organisms: None Reported Past Surgical History: No Surgical Hx Reported Additional Past Surgical History / Comment(s): unknown Past Anesthesia/Blood Transfusion Reactions: No Reported Reaction Past Psychological History: No Psychological Hx Reported Additional Psychological History / Comment(s): Pt states he has nonfamily member caregiver that takes care of him He ambulates with a cane. He is legally blind bilaterally. Smoking Status: Former smoker Past Alcohol Use History: None Reported Additional Past Alcohol Use History / Comment(s): started smoking about 1965 and quit in 2012 Past Drug Use History: None Reported - Past Family History Father Family Medical History: Diabetes Mellitus Mother Family Medical History: Dementia, Diabetes Mellitus Brother(s) Family Medical History: Unable to Obtain Medications and Allergies Home Medications Medication Instructions Recorded Confirmed Type metFORMIN HCL [Glucophage] 500 mg PO BID@0900,1700 05/05/16 08/11/17 History Acetaminophen [Tylenol] 650 mg PO Q4H PRN 08/11/17 08/11/17 History Albuterol Nebulized [Ventolin 2.5 mg INHALATION RT-Q6H PRN 08/11/17 08/11/17 History Nebulized] Aspirin 81 mg PO DAILY@0900 08/11/17 08/11/17 History Lisinopril [Prinivil] 5 mg PO DAILY@0900 08/11/17 08/11/17 History Metoprolol Tartrate [Lopressor] 25 mg PO BID@0900,1700 08/11/17 08/11/17 History Allergies Allergy/AdvReac Type Severity Reaction Status Date / Time hydrocodone bitartrate AdvReac Nausea Verified 08/11/17 12:05 [From Vicodin] Physical Exam Vitals: Vital Signs Temp Pulse Pulse Resp BP BP Pulse Ox 08/11/17 13:03 98.1 F 75 20 137/77 98 08/11/17 12:09 97.4 F L 69 20 126/68 98 08/11/17 10:34 78 17 141/81 98 08/11/17 09:42 20 08/11/17 09:41 98 08/11/17 09:25 98.9 F 97 16 170/89 99 Intake and Output 08/11/17 08/11/17 08/11/17 06:59 14:59 22:59 Other: Weight 99.79 kg Limitations: altered mental status, physical limitation General appearance: 72-year-old white male, on BiPAP, does not seem to be in any form of distress. Head exam: Atraumatic, normocephalic. Eye exam: Chronic opacification of both eyes noted. No icterus. Neck exam: No neck masses, no stridor. Moist mucous membranes noted. Respiratory exam: Diminished breath sounds at the bases, no crackles or rhonchi or wheezes. No chest wall tenderness. Symmetrical expansion noted. Cardiac: Normal S1 and S2 no gallops, no murmur. GI/Abdominal exam: Obese, soft, nontender, no megaly, no rebound, positive bowel sounds. Extremities exam: No clubbing edema or cyanosis. Neurological exam: Awake, however the patient does not follow any instructions, and does not verbalize. Psychiatric exam: Flat affect otherwise cannot be assessed. Skin exam: Present: normal color Results - Laboratory Findings CBC and BMP: 08/11/17 09:38 08/11/17 09:38 ABG ABG pH 7.39 (7.35-7.45) 08/11/17 14:59 ABG pCO2 43 mmHg (35-45) 08/11/17 14:59 ABG pO2 93 mmHg (83-108) 08/11/17 14:59 ABG O2 Saturation 98.0 % (94-97) H 08/11/17 14:59 PT/INR, D-dimer PT 10.4 sec (9.0-12.0) 08/11/17 09:38 INR 1.1 (<1.2) 08/11/17 09:38 Abnormal lab findings: Abnormal Labs 08/11/17 08/11/17 08/11/17 09:38 09:38 14:59 WBC 14.7 H Neutrophils # 12.0 H ABG HCO3 26 H ABG Total CO2 28 H ABG O2 Saturation 98.0 H Sodium 136 L BUN 22 H Glucose 171 H Total Bilirubin 1.4 H ALT 15 L - Diagnostic Findings Chest x-ray: image reviewed (Cardiomegaly and scarring of the right lung base noted) Assessment and Plan Assessment: Impression: 1 acute hypoxic respiratory failure, exact etiology is not clear, however his ABG done today showed a pO2 of 93 pCO2 of 43 pH of 7.39, and this was done on 30 % FiO2 and BiPAP. IPAP of 12 and EPAP of 5. His hypoxemia could be related to atelectasis, The ABG is not suggestive of thromboembolic disease, but considering his elevated troponin and elevated BNP, there could be a component of systolic congestive heart failure Previous echocardiogram in the last 6 months showed inferolateral hypokinesis, and ejection fraction of 40-45%. Strongly doubt underlying COPD. 2 multiple comorbidities including questionable COPD, previous CVA, diabetes, hypertension, history of syncope, legal blindness, history of glaucoma, history of TIA, Recommendation: Switch patient from BiPAP to a nasal cannula, continue bronchodilators, suggest gentle diuresis, cardiology to evaluate, may need to repeat echocardiogram, consider stopping antibiotics in the next 24 hours. We' ll continue to follow. Time with Patient: Greater than 30
--- NOTE | 2017-08-11 15:44 | HP ---
HISTORY AND PHYSICAL CHIEF COMPLAINT: Shortness of breath. HISTORY OF PRESENT ILLNESS: This 72-year-old gentleman with a past medical history of COPD, CVA, diabetes, hypertension, hyperlipidemia, syncope, had history of recent multiple falls also. Patient is legally blind. The patient is followed by Dr. Quevedo in the outpatient setting. Currently the patient is in [place] on the [facility] under Dr. Azul. Apparently the patient had shortness of breath in the ECF and the EMS was called and the patient was found to be hypoxia with pulse ox of 70, oxygen. Patient improved and BiPAP was initiated. Patient was taken to [facility] and admitted for further evaluation and treatment. The patient is stuporous, is unable to give any coherent history. Most history is taken with discussion with the ER physician, staff and as well as review of the chart. PAST MEDICAL HISTORY: COPD, CVA, diabetes, hypertension, hyperlipidemia, syncope, history of fall and compression fractures. MEDICATIONS: Medications are home medications are: 1. Tylenol 650 q.4 p.r.n. 2. Lopressor 25 mg p.o. b.i.d. 3. Prinivil 5 mg p.o. daily. 4. Aspirin 81 mg p.o. daily. 5. Ventolin 2.5 q.6 p.r.n. 6. Glucophage 500 mg p.o. b.i.d. ALLERGIES: Allergies are VICODIN. FAMILY HISTORY: History of diabetes in the family. SOCIAL HISTORY: Previous history of smoking. No history of alcohol intake. REVIEW OF SYSTEMS: Could not be taken because of the patient's change in mental status. PHYSICAL EXAMINATION: Patient is stuporous. Pulse 69, blood pressure 126/68, respirations 20, temperature 97.2, pulse ox 98% on BiPAP. BiPAP settings are noted. HEENT: Conjunctivae normal. Oral mucosa moist. Neck is no jugular venous distention or carotid bruit. No lymph node enlargement. CARDIOVASCULAR: S1 and S2 muffled. No S3, no S4. RESPIRATORY: Breath sounds diminished at the bases. Bilateral scattered rhonchi and crackles. ABDOMEN: Soft, nontender. LEGS: No edema. NERVOUS SYSTEM: Could not be examined. SKIN: No ulcer, rash, or bleeding. LYMPHATICS: No lymphadenopathy of the neck, axillae or groin. JOINTS: No active deforming arthropathy. LABS: WBC is 14.7. Sodium 136, potassium 4.9. Total bilirubin is 1.4. ASSESSMENT: 1. Chronic obstructive pulmonary disease acute exacerbation with acute purulent tracheobronchitis with acute hypoxic respiratory failure. 2. Change in mental status, metabolic encephalopathy. 3. Hyponatremia. 4. Increased WBC. 5. History of chronic obstructive pulmonary disease. 6. History of cerebrovascular accident, transient ischemic attack. 7. Diabetes mellitus type 2. 8. Hypertension. 9. Hyperlipidemia. 10.History of syncope. 11.History of legal blindness. 12.History of glaucoma. 13.History of T2 compression fracture. 14.History of falls and gait dysfunction. RECOMMENDATIONS AND DISCUSSION: This 72-year-old gentleman who presented with multiple complex medical issues, will monitor the patient closely. Continue the current medications, continue symptomatic treatment. Will optimize bronchodilator treatment, empiric antibiotics, oxygen, resume the home medications, IV steroids. Monitor blood sugars closely. DVT prophylaxis. We will also get Dr. Sinha to consult. Prognosis guarded because of multiple complex medical issues. Further recommendations to follow. Will monitor sensorium closely. CAT scan of the brain also will be ordered. Prognosis guarded. Further recommendations to follow. MMODL / IJN: [id number] / LUIS ALBERTO
[2017-08-11] MEDS: INSULIN ASPART 100 UNIT/ML 1 ML 10 ML VIAL SQ SCH ×2 (16:01→23:02)
[2017-08-11] MEDS: METOPROLOL TARTRATE 25 MG TAB PO SCH (16:01)
[2017-08-11] MEDS: metFORMIN 500 MG TAB PO SCH (16:01)
[2017-08-11 16:09] LABS: Glucose,Whole Blood 223 mg/dL (75-99)
--- NOTE | 2017-08-11 16:36 | CT ---
EXAMINATION TYPE: CT brain wo con DATE OF EXAM: 08/11/2017 COMPARISON: NONE HISTORY: Mental status change. CT DLP: 1150.5 mGycm Automated exposure control for dose reduction was used. Findings: No acute hemorrhage or major vessel territorial infarct is identified. No mass, mass effect, or midli ne shift is seen. There is moderate cortical atrophy as well as chronic white matter ischemic changes . Paranasal sinuses and mastoid air cells are well aerated. IMPRESSION: No significant findings.
[2017-08-11] MEDS: methylPREDNISolone SOD SUCCI 40 MG/ML 1 ML VIAL IV SCH (17:09)
[2017-08-11] MEDS: FUROSEMIDE 10 MG/ML 2 ML VIAL IV SCH (17:09)
[2017-08-11] MEDS: LEVOFLOXACIN 500MG-D5W PMX 500 MG in DEXTROSE/WATER 1 100ML.BAG IVPB SCH (17:09)
[2017-08-11] MEDS: FORMOTEROL FUMARATE 20 MCG/2 ML NEBU INHALATION SCH (19:10)
[2017-08-11] MEDS: BUDESONIDE 1 MG/2 ML NEBU INHALATION SCH (19:10)
[2017-08-11] MEDS: PANTOPRAZOLE 40 MG/10 ML VIAL IVP SCH (20:26)
[2017-08-11] MEDS: HEPARIN SODIUM,PORCINE 5,000 UNIT/ML 1 ML VIAL SQ SCH (20:26)
[2017-08-11 20:35] LABS: Glucose,Whole Blood 291 mg/dL (75-99)
[2017-08-11 23:34] LABS: Hemoglobin A1C 7.1 % (4.0-6.0)
[2017-08-12] MEDS: methylPREDNISolone SOD SUCCI 40 MG/ML 1 ML VIAL IV SCH ×3 (00:17→15:58)
[2017-08-12 04:45] LABS: Glucose,Whole Blood 331 mg/dL (75-99)
[2017-08-12 05:59] LABS: Glucose,Whole Blood 245 mg/dL (75-99)
[2017-08-12 06:28] LABS: Basophils % (A) 0 %; Eosinophils % (A) 0 %; HCT 37.1 % (39.0-53.0); HGB 11.8 gm/dL (13.0-17.5); Lymphocytes % (A) 9 %; MCH 28.3 pg (25.0-35.0); MCHC 31.8 g/dL (31.0-37.0); MCV 88.9 fL (80.0-100.0); Mean Platelet Volume 8.2; Monocytes # (A) 0.5 k/uL (0-1.0); Monocytes % (A) 5 %; Neutrophils # (A) 9.8 k/uL (1.3-7.7); Neutrophils % (A) 86 %; Platelet Count 267 k/uL (150-450); RBC 4.17 m/uL (4.30-5.90); RDW 12.8 % (11.5-15.5); WBC 11.4 k/uL (3.8-10.6)
[2017-08-12 06:38] LABS: Calcium 8.8 mg/dL (8.4-10.2); Potassium 4.3 mmol/L (3.5-5.1)
[2017-08-12] MEDS: INSULIN ASPART 100 UNIT/ML 1 ML 10 ML VIAL SQ SCH ×4 (06:47→21:09)
[2017-08-12] MEDS: HEPARIN SODIUM,PORCINE 5,000 UNIT/ML 1 ML VIAL SQ SCH ×2 (07:52→21:09)
[2017-08-12] MEDS: ASPIRIN 81 MG PO SCH (07:52)
[2017-08-12] MEDS: LISINOPRIL 5 MG TAB PO SCH (07:53)
[2017-08-12] MEDS: METOPROLOL TARTRATE 25 MG TAB PO SCH ×2 (07:53→15:58)
[2017-08-12] MEDS: PANTOPRAZOLE 40 MG/10 ML VIAL IVP SCH ×2 (07:53→21:09)
[2017-08-12] MEDS: FUROSEMIDE 10 MG/ML 2 ML VIAL IV SCH (07:54)
[2017-08-12] MEDS: metFORMIN 500 MG TAB PO SCH ×2 (07:57→17:07)
[2017-08-12] MEDS: IPRATROPIUM-ALBUTEROL 3 ML NEB INHALATION SCH ×4 (08:53→20:50)
[2017-08-12] MEDS: FORMOTEROL FUMARATE 20 MCG/2 ML NEBU INHALATION SCH ×2 (08:53→20:48)
[2017-08-12] MEDS: BUDESONIDE 1 MG/2 ML NEBU INHALATION SCH ×2 (08:53→20:48)
[2017-08-12 12:06] LABS: Glucose,Whole Blood 172 mg/dL (75-99)
--- NOTE | 2017-08-12 13:09 | P.PN ---
Subjective Progress Note Date: 08/12/17 Principal diagnosis: Acute hypoxic respiratory failure, multifactorial. This is a 72-year-old white male with history of hypertension, diabetes, legally blind, patient was brought in by EMS mostly because of shortness of breath. Apparently when EMS arrived to pick him up, patient was noted to be hypoxic, and tachypneic. He had diminished breath sounds at the bases, patient was placed on CPAP at 100%, and brought in to the hospital with the presumptive COPD exacerbation. The patient himself is a poor historian, patient is not verbal, and does not seem to comprehend any questions and basically not answering any of them. Patient is legally blind, presently on BiPAP, and does not seem to be in any form of distress. Looking back at previous admissions, his last admission in December of 2016 was related to a fall, and his problems at the time included legal blindness, diabetes, COPD, sinus tachycardia, and hypertension. Previous cardiac workup was nondiagnostic. Previous CT of the chest showed no evidence of thromboembolic disease, and minimal dependent atelectasis within the lungs. Reevaluated today on 08/12/2017, patient is now on 4 L nasal cannula, saturating quite well with O2 sat in the 96% range. Patient is definitely more verbal today, and he is answering questions properly. That was not noted on my examination yesterday. Definitely the patient is feeling better, he is asymptomatic, denies any cough no wheezing no shortness of breath no chest pain. Labs including CBC and basic metabolic profile were noted, and they were relatively unremarkable except for BUN of 35 and creatinine of 1.20. Blood sugar is a bit elevated at 268. Objective - Vital Signs Vital signs: Vital Signs Temp 98.6 F 08/12/17 10:44 Pulse 108 H 08/12/17 12:27 Resp 18 08/12/17 12:00 BP 116/56 08/12/17 10:44 Pulse Ox 96 08/12/17 10:44 Intake & Output 08/11/17 08/12/17 08/12/17 18:59 06:59 18:59 Intake Total 150 118 Output Total 50 Balance 100 118 Weight 99.79 kg 91.5 kg Intake: Intake, IV Titration 100 Amount Levofloxacin 500Mg-D5w 100 Pmx 500 mg In Dextrose/ Water 1 100ml.bag @ 100 mls/hr IVPB Q24H EKATERINA Rx#: [id number] Oral 50 118 Output: Emesis 50 Other: Voiding Method Incontinent Diaper Diaper Incontinent Incontinent # Voids 1 # Emeses 1 - Exam General appearance: 72-year-old white male, on 4 L nasal cannula, O2 saturation is 96%. Head exam: Atraumatic, normocephalic. Eye exam: Chronic opacification of both eyes noted. No icterus. Neck exam: No neck masses, no stridor. Moist mucous membranes noted. Respiratory exam: Diminished breath sounds at the bases, no crackles or rhonchi or wheezes. No chest wall tenderness. Symmetrical expansion noted. Cardiac: Normal S1 and S2 no gallops, no murmur. GI/Abdominal exam: Obese, soft, nontender, no megaly, no rebound, positive bowel sounds. Extremities exam: No clubbing edema or cyanosis. Neurological exam: Awake, appropriate, follows all instructions today. Psychiatric exam: Flat affect otherwise unremarkable. Skin exam: Present: normal color - Labs CBC & Chem 7: 08/12/17 05:57 08/12/17 05:57 Labs: Abnormal Lab Results - Last 24 Hours (Table) 08/11/17 08/11/17 08/11/17 Range/Units 14:59 16:08 20:32 WBC (3.8-10.6) k/uL RBC (4.30-5.90) m/uL Hgb (13.0-17.5) gm/dL Hct (39.0-53.0) % Neutrophils # (1.3-7.7) k/uL ABG HCO3 26 H (21-25) mmol/L ABG Total CO2 28 H (19-24) mmol/L ABG O2 Saturation 98.0 H (94-97) % BUN (9-20) mg/dL Glucose (74-99) mg/dL POC Glucose (mg/dL) 223 H 291 H (75-99) mg/dL 08/12/17 08/12/17 08/12/17 Range/Units 01:44 05:30 05:57 WBC 11.4 H (3.8-10.6) k/uL RBC 4.17 L (4.30-5.90) m/uL Hgb 11.8 L (13.0-17.5) gm/dL Hct 37.1 L (39.0-53.0) % Neutrophils # 9.8 H (1.3-7.7) k/uL ABG HCO3 (21-25) mmol/L ABG Total CO2 (19-24) mmol/L ABG O2 Saturation (94-97) % BUN (9-20) mg/dL Glucose (74-99) mg/dL POC Glucose (mg/dL) 331 H 245 H (75-99) mg/dL 08/12/17 08/12/17 Range/Units 05:57 11:45 WBC (3.8-10.6) k/uL RBC (4.30-5.90) m/uL Hgb (13.0-17.5) gm/dL Hct (39.0-53.0) % Neutrophils # (1.3-7.7) k/uL ABG HCO3 (21-25) mmol/L ABG Total CO2 (19-24) mmol/L ABG O2 Saturation (94-97) % BUN 35 H (9-20) mg/dL Glucose 268 H (74-99) mg/dL POC Glucose (mg/dL) 172 H (75-99) mg/dL Microbiology - Last 24 Hours (Table) 08/11/17 23:55 Urine Culture - Preliminary Urine,Catheterized Assessment and Plan Assessment: Impression: 1 acute hypoxic respiratory failure, exact etiology is not clear, however his ABG done today showed a pO2 of 93 pCO2 of 43 pH of 7.39, and this was done on 30 % FiO2 and BiPAP. IPAP of 12 and EPAP of 5. His hypoxemia could be related to atelectasis, The ABG is not suggestive of thromboembolic disease, but considering his elevated troponin and elevated BNP, there could be a component of systolic congestive heart failure Previous echocardiogram in the last 6 months showed inferolateral hypokinesis, and ejection fraction of 40-45%. Strongly doubt underlying COPD. 2 multiple comorbidities including questionable COPD, previous CVA, diabetes, hypertension, history of syncope, legal blindness, history of glaucoma, history of TIA, Recommendation: Continue patient on present meds including bronchodilators, oxygen, incentive spirometry, and possibly discharge planning in the next 24 hours. Follow-up on outpatient basis. Continue gentle diuresis. Time with Patient: Less than 30
[2017-08-12] MEDS: LEVOFLOXACIN 500MG-D5W PMX 500 MG in DEXTROSE/WATER 1 100ML.BAG IVPB SCH (13:24)
--- NOTE | 2017-08-12 16:48 | PN ---
PROGRESS NOTE DATE OF SERVICE: 08/12/2017 This 72-year-old gentleman admitted change in mental status, COPD acute exacerbation as well as acute hypoxic respiratory failure and tracheobronchitis is being closely monitored. Dr. Sinha is following the patient closely. CT scan of brain did not show acute abnormality. Sensorium is slightly improved at this time. The patient is on broad-spectrum IV antibiotics. PAST MEDICAL HISTORY: Reviewed. REVIEW OF SYSTEMS: Could not be taken, even when the patient's sensorium is improved. CURRENT MEDICATIONS: The current medications are reviewed which include: 1. Tylenol 650 q.4h p.r.n. 2. DuoNeb q.i.d. and p.r.n. 3. Xanax 0.5 t.i.d. 4. Aspirin 81 mg. 5. Pulmicort 1 mg b.i.d. 6. Perforomist 120 g p.o. b.i.d. 7. Lasix 20 mg IV daily. 8. Heparin subcu b.i.d. 9. NovoLog scale. 10.Levaquin 500 IV daily. 11.Zestril 5 mg. 12.Glucophage. 13.Solu-Medrol 40 IV q.8h. 14.Lopressor. 15.Protonix. PHYSICAL EXAM: Patient is alert, oriented x1. Pulse 83, blood pressure 116/56, respiration 18, temperature 98.2, pulse ox 98% on 4 L. HEENT: Conjunctivae normal. Oral mucosa moist. Neck is no jugular venous distention. No carotid bruit. No lymph node enlargement. CARDIOVASCULAR: S1, S2. RESPIRATORY: Breath sounds diminished in the bases. A few scattered rhonchi. No crackles. ABDOMEN: Soft, nontender. LEGS: No edema. NERVOUS SYSTEM: Diffusely weak. LABS: WBC 7, hemoglobin 11.8, creatinine 1.20. ASSESSMENT: 1. Chronic obstructive pulmonary disease acute exacerbation with acute purulent tracheobronchitis with acute hypoxic respiratory failure. 2. Change in mental status, acute metabolic encephalopathy secondary to respiratory failure. 3. Hyponatremia. 4. Increased WBC. 5. History of chronic obstructive pulmonary disease. 6. History of cerebrovascular accident, transient ischemic attack. 7. Diabetes mellitus type 2. 8. Hypertension. 9. Hyperlipidemia. 10.History of syncope. 11.History legal blindness. 12.History of glaucoma. 13.History of T2 compression fracture. 14.History of falls and gait dysfunction. RECOMMENDATIONS AND DISCUSSION: This 72-year-old gentleman who presented with multiple complex medical issues, we will monitor the patient closely. Continue to monitor. Otherwise, continue with antibiotics and bronchodilators. Continue rest of medications. Prognosis guarded because of multiple complex medical issues. CT scan reviewed. Closely follow with Dr. Sinha. Guarded prognosis. Further recommendations to follow. MMODL / IJN: [id number] /
[2017-08-12 17:25] LABS: Glucose,Whole Blood 228 mg/dL (75-99)
[2017-08-12 20:58] LABS: Glucose,Whole Blood 153 mg/dL (75-99)
[2017-08-13] MEDS: BUDESONIDE 1 MG/2 ML NEBU INHALATION SCH (07:09)
[2017-08-13] MEDS: IPRATROPIUM-ALBUTEROL 3 ML NEB INHALATION SCH ×3 (07:09→16:55)
[2017-08-13] MEDS: FORMOTEROL FUMARATE 20 MCG/2 ML NEBU INHALATION SCH (07:09)
[2017-08-13 07:53] LABS: Glucose,Whole Blood 214 mg/dL (75-99)
[2017-08-13 08:12] VITALS: PULSE 100
[2017-08-13] MEDS: LISINOPRIL 5 MG TAB PO SCH (09:25)
[2017-08-13] MEDS: methylPREDNISolone SOD SUCCI 40 MG/ML 1 ML VIAL IV SCH ×2 (09:25)
[2017-08-13] MEDS: FUROSEMIDE 10 MG/ML 2 ML VIAL IV SCH (09:26)
[2017-08-13] MEDS: METOPROLOL TARTRATE 25 MG TAB PO SCH ×2 (09:26→17:44)
[2017-08-13] MEDS: ASPIRIN 81 MG PO SCH (09:26)
[2017-08-13] MEDS: metFORMIN 500 MG TAB PO SCH ×2 (09:26→17:44)
[2017-08-13] MEDS: PANTOPRAZOLE 40 MG/10 ML VIAL IVP SCH (09:26)
[2017-08-13] MEDS: HEPARIN SODIUM,PORCINE 5,000 UNIT/ML 1 ML VIAL SQ SCH (09:26)
[2017-08-13] MEDS: INSULIN ASPART 100 UNIT/ML 1 ML 10 ML VIAL SQ SCH ×3 (09:26→17:44)
[2017-08-13 09:41] LABS: Basophils % (A) 0 %; Eosinophils % (A) 0 %; HCT 39.6 % (39.0-53.0); HGB 13.1 gm/dL (13.0-17.5); Lymphocytes # (A) 1.1 k/uL (1.0-4.8); Lymphocytes % (A) 11 %; MCH 29.3 pg (25.0-35.0); MCV 88.7 fL (80.0-100.0); Mean Platelet Volume 7.6; Monocytes # (A) 0.5 k/uL (0-1.0); Monocytes % (A) 5 %; Neutrophils # (A) 7.9 k/uL (1.3-7.7); Neutrophils % (A) 82 %; Platelet Count 304 k/uL (150-450); RBC 4.46 m/uL (4.30-5.90); RDW 12.6 % (11.5-15.5); WBC 9.6 k/uL (3.8-10.6)
[2017-08-13 10:46] LABS: Calcium 8.7 mg/dL (8.4-10.2); Potassium 4.3 mmol/L (3.5-5.1)
[2017-08-13 11:23] LABS: Glucose,Whole Blood 224 mg/dL (75-99)
--- NOTE | 2017-08-13 11:56 | FL ---
EXAMINATION TYPE: FL barium swallow w video DATE OF EXAM: 08/13/2017 COMPARISON: NONE HISTORY: Coughing with eating, difficulty swallowing. The patient was evaluated in the lateral projection during real-time fluoroscopy, during ingestion of barium mixed with solids and liquids. No aspiration or laryngeal penetration. Some minimal residual s identified. See report from speech pathology. 1 minute 22 seconds fluoroscopy time. 241 images obtained
[2017-08-13] MEDS: LEVOFLOXACIN 500MG-D5W PMX 500 MG in DEXTROSE/WATER 1 100ML.BAG IVPB SCH (14:01)
[2017-08-13 14:23] VITALS: BP 143/68; RESP 14; TEMP 97.8
--- NOTE | 2017-08-13 14:39 | P.PN ---
Subjective Progress Note Date: 08/13/17 Principal diagnosis: Acute hypoxic respiratory failure, multifactorial This is a 72-year-old white male with history of hypertension, diabetes, legally blind, patient was brought in by EMS mostly because of shortness of breath. Apparently when EMS arrived to pick him up, patient was noted to be hypoxic, and tachypneic. He had diminished breath sounds at the bases, patient was placed on CPAP at 100%, and brought in to the hospital with the presumptive COPD exacerbation. The patient himself is a poor historian, patient is not verbal, and does not seem to comprehend any questions and basically not answering any of them. Patient is legally blind, presently on BiPAP, and does not seem to be in any form of distress. Looking back at previous admissions, his last admission in December of 2016 was related to a fall, and his problems at the time included legal blindness, diabetes, COPD, sinus tachycardia, and hypertension. Previous cardiac workup was nondiagnostic. Previous CT of the chest showed no evidence of thromboembolic disease, and minimal dependent atelectasis within the lungs. Reevaluated today on 08/12/2017, patient is now on 4 L nasal cannula, saturating quite well with O2 sat in the 96% range. Patient is definitely more verbal today, and he is answering questions properly. That was not noted on my examination yesterday. Definitely the patient is feeling better, he is asymptomatic, denies any cough no wheezing no shortness of breath no chest pain. Labs including CBC and basic metabolic profile were noted, and they were relatively unremarkable except for BUN of 35 and creatinine of 1.20. Blood sugar is a bit elevated at 268. On 08/13/2017 patient seen in follow-up on medical surgical floor. Currently on room air, denies any acute distress. Pulse ox is 95%, patient is hemodynamically stable, afebrile. Lung sounds are clear to auscultation, no rhonchi, no wheezes or rales noted. Today's lab work showed no evidence of leukocytosis, electrolyte profile was within normal limits, BUN is 52, creatinine is 1.21. Patient has been on Pulmicort, Perforomist, DuoNeb, Levaquin, IV steroids, and Lasix 20 mg once daily. Patient had a modified barium swallow today for his history of coughing with eating and difficulty swallowing. No aspiration or laryngeal penetration was noted. Some minimal residuals were identified. Objective - Vital Signs Vital signs: Vital Signs Temp 97.0 F L 08/13/17 07:00 Pulse 90 08/13/17 07:29 Resp 18 08/13/17 09:34 BP 148/88 08/13/17 07:00 Pulse Ox 99 08/13/17 07:09 Intake & Output 08/12/17 08/13/17 08/13/17 18:59 06:59 18:59 Intake Total 118 250 Balance 118 250 Weight 91.5 kg Intake: Oral 118 250 Other: Voiding Method Diaper Diaper Diaper Incontinent Incontinent Incontinent # Voids 2 - Exam GENERAL EXAM: Alert, pleasant, 72-year-old white male comfortable in no apparent distress. HEAD: Normocephalic/atraumatic. EYES: Normal reaction of pupils, equal size. Conjunctiva pink, sclera white. NOSE: Clear with pink turbinates. THROAT: No erythema or exudates. NECK: No masses, no JVD, no thyroid enlargement, no adenopathy. CHEST: No chest wall deformity. Symmetrical expansion. LUNGS: Equal air entry with no crackles, wheeze, rhonchi or dullness. CVS: Regular rate and rhythm, normal S1 and S2, no gallops, no murmurs, no rubs ABDOMEN: Soft, nontender. No hepatosplenomegaly, normal bowel sounds, no guarding or rigidity. EXTREMITIES: No clubbing, no edema, no cyanosis, 2+ pulses and upper and lower extremities. MUSCULOSKELETAL: Muscle strength and tone normal. SPINE: No scoliosis or deformity SKIN: No rashes CENTRAL NERVOUS SYSTEM: Alert and oriented -3. No focal deficits, tone is normal in all 4 extremities. PSYCHIATRIC: Alert and oriented -3. Appropriate affect. Intact judgment and insight. - Labs CBC & Chem 7: 08/13/17 08:18 08/13/17 08:18 Labs: Abnormal Lab Results - Last 24 Hours (Table) 08/11/17 08/12/17 08/12/17 Range/Units 15:11 17:10 20:53 Neutrophils # (1.3-7.7) k/uL BUN (9-20) mg/dL Glucose (74-99) mg/dL POC Glucose (mg/dL) 228 H 153 H (75-99) mg/dL Hemoglobin A1c 7.1 H (4.0-6.0) % 08/13/17 08/13/17 08/13/17 Range/Units 07:39 08:18 08:18 Neutrophils # 7.9 H (1.3-7.7) k/uL BUN 52 H (9-20) mg/dL Glucose 226 H (74-99) mg/dL POC Glucose (mg/dL) 214 H (75-99) mg/dL Hemoglobin A1c (4.0-6.0) % 08/13/17 Range/Units 11:20 Neutrophils # (1.3-7.7) k/uL BUN (9-20) mg/dL Glucose (74-99) mg/dL POC Glucose (mg/dL) 224 H (75-99) mg/dL Hemoglobin A1c (4.0-6.0) % Microbiology - Last 24 Hours (Table) 08/11/17 23:55 Urine Culture - Final Urine,Catheterized 08/11/17 15:11 Blood Culture - Preliminary Blood No Growth after 24 hours Assessment and Plan Plan: Assessment: 1 acute hypoxic respiratory failure, exact etiology is not clear, however his ABG done today showed a pO2 of 93 pCO2 of 43 pH of 7.39, and this was done on 30 % FiO2 and BiPAP. IPAP of 12 and EPAP of 5. His hypoxemia could be related to atelectasis, The ABG is not suggestive of thromboembolic disease, but considering his elevated troponin and elevated BNP, there could be a component of systolic congestive heart failure Previous echocardiogram in the last 6 months showed inferolateral hypokinesis, and ejection fraction of 40-45%. Strongly doubt underlying COPD. 2 multiple comorbidities including questionable COPD, previous CVA, diabetes, hypertension, history of syncope, legal blindness, history of glaucoma, history of TIA, Recommendation: Switch IV Lasix to oral Lasix, switch IV steroids to oral prednisone 30 milligrams daily. We will switch IV Levaquin to oral. Continue Pulmicort, Perforomist and DuoNeb. Continue aspiration precautions. Increase activity as tolerated, patient may need physical therapy. His hypoxemia has resolved, patient is currently on room air, vital signs are stable, patient is afebrile. From pulmonary standpoint he could be discharged home today. Follow-up with Dr. Sinha in the office in one week. I performed a history & physical examination of the patient and discussed their management with my nurse practitioner, Funmi Lindsey. I reviewed the nurse practitioner's note and agree with the documented findings and plan of care. Lung sounds are clear. The findings and the impression was discussed with the patient. I attest to the documentation by the nurse practitioner. Time with Patient: Less than 30
[2017-08-13] MEDS ORDERED: LEVOFLOXACIN 500 MG TAB PO SCH (15:00)
--- NOTE | 2017-08-13 15:03 | P.DS ---
Providers Date of admission: 08/11/17 11:26 Expected date of discharge: 08/13/17 Attending physician: Luis Shin Consults: 08/11/17 11:26 Consult Physician Routine Consulting Provider: Toni Sinha Consult Reason/Comments: dyspnea Do you want consulting provider notified?: Yes Primary care physician: Leonides Azul Hospital Course: Final Diagnoses: 1. Acute exacerbation COPD with acute purulent tracheobronchitis with acute hypoxic respiratory failure 2. Change in mental status, acute metabolic encephalopathy secondary to respiratory failure 3. Hyponatremia 4. Diabetes mellitus type 2 5. History of CVA, TIA 6. History of legal blindness, glaucoma Hospital course: This is a 72-year-old gentleman admitted with change in mental status, acute exacerbation COPD, acute hypoxic respiratory failure with tracheobronchitis. Evaluated by pulmonary. Brain CT did not report acute abnormality. Sensorium improved. Maintained on gentle IV fluid hydration, antibiotics. Suspected aspiration, underwent modified barium swallow. Barium swallow reported no aspiration or laryngeal penetration, minimal residuals identified. Significant clinical improvement. Cleared by pulmonary for discharge. Patient is being discharged to [facility] subacute rehab in a stable condition with guarded prognosis. Physical exam:VSS CV:S1,S2, alert and oriented 2, no acute distress. Lungs: Bilateral bases diminished with scattered rhonchi. ABD: Soft nontender positive bowel sounds. NERVOUS: Generalized diffuse weakness. The impression and plan of care has been dictated as directed. : I performed a history and examination of this patient, discussed the same with the dictator. I agree with the dictator's note ,documented as a scribe. Any additional findings or plans will be noted. Time taken: 35 minutes Patient Condition at Discharge: Stable Plan - Discharge Summary New Discharge Prescriptions: New Furosemide [Lasix] 20 mg PO DAILY #0 tab Ipratropium-Albuterol Nebulize [Duoneb 0.5 mg-3 mg/3 ml Soln] 3 ml INHALATION RT-QID ampul.neb Pantoprazole [Protonix] 40 mg PO AC-BID tablet. predniSONE 10 mg PO DIRECTED #18 tab INSULIN LISPRO (HumaLOG) [humaLOG] 0 unit SQ ACHS #1 vial Amoxic-Pot Clav 875-125Mg [Augmentin 875-125] 1 tab PO Q12HR #10 tablet Continue metFORMIN HCL [Glucophage] 500 mg PO BID@0900,1700 Acetaminophen [Tylenol] 650 mg PO Q4H PRN PRN Reason: Pain Metoprolol Tartrate [Lopressor] 25 mg PO BID@0900,1700 Lisinopril [Prinivil] 5 mg PO DAILY@0900 Aspirin 81 mg PO DAILY@0900 Albuterol Nebulized [Ventolin Nebulized] 2.5 mg INHALATION RT-Q6H PRN PRN Reason: Shortness Of Breath Discharge Medication List metFORMIN HCL [Glucophage] 500 mg PO BID@0900,1700 05/05/16 [History] Acetaminophen [Tylenol] 650 mg PO Q4H PRN 08/11/17 [History] Albuterol Nebulized [Ventolin Nebulized] 2.5 mg INHALATION RT-Q6H PRN 08/11/17 [ History] Aspirin 81 mg PO DAILY@0900 08/11/17 [History] Lisinopril [Prinivil] 5 mg PO DAILY@0900 08/11/17 [History] Metoprolol Tartrate [Lopressor] 25 mg PO BID@0900,1700 08/11/17 [History] Amoxic-Pot Clav 875-125Mg [Augmentin 875-125] 1 tab PO Q12HR #10 tablet [Rx] Furosemide [Lasix] 20 mg PO DAILY #0 tab 08/13/17 [Rx] INSULIN LISPRO (HumaLOG) [humaLOG] 0 unit SQ ACHS #1 vial 08/13/17 [Rx] Ipratropium-Albuterol Nebulize [Duoneb 0.5 mg-3 mg/3 ml Soln] 3 ml INHALATION RT -QID ampul.neb 08/13/17 [Rx] Pantoprazole [Protonix] 40 mg PO AC-BID tablet. 08/13/17 [Rx] predniSONE 10 mg PO DIRECTED #18 tab 08/13/17 [Rx] Follow up Appointment(s)/Referral(s): Leonides Azul MD [Primary Care Provider] - 3 Days
--- NOTE | 2017-08-13 16:30 | CDI ---
Last Revision, April 2017 Documentation Clarification Form Date: 08/13/17 From: Brenda Santos RN, CCDS Admit Date: 08/11/2017 11:26:00 AM Patient Name: Denis Barajas Visit Number: [id number] Discharge Date: ATTENTION: The Clinical Documentation Specialists (CDI) and [facility] Coding Staff appreciate your assistance in clarifying documentation. Please respond to the clarification below the line at the bottom and electronically sign. The CDI & [facility] Coding staff will review the response and follow-up if needed. Please note: Queries are made part of the Legal Health Record. If you have any questions, please contact the author of this message via ITS. Dr. Toni Sinha A component of systolic congestive heart failure is documented in your consult and progress notes. History/Risk Factors: .DM type II, Legal blindness, COPD, Hypertension, CVA/TIA , Former smoker Clinical Indicators: Present with complaints of shortness of breath per EMS he was hypoxic and tachypneic. VS/Pulse OX: 170/89 97 16 98.9 98 % BIPAP BNP: 6120 Echocardiogram Results: 40-45 % (Last echo per your progress notes) Chest X Ray: Mild cardiomegaly, scarring, right lung base Treatment: Lasix IV ( now PO) BIPAP ( titrate to NC Monitor O2 Sat's Bronchodilators per orders In your professional opinion, can you please clarify the acuity of the CHF if known? Systolic Heart Failure: Acute Chronic Acute on Chronic Unable to Determine Other, please specify Please continue to document in your progress notes and discharge summary in order to capture severity of illness and risk of mortality. Include clinical findings that support your diagnosis. MTDD
[2017-08-13] MEDS ORDERED: PANTOPRAZOLE 40 MG TABLET PO SCH (17:30)
[2017-08-13 17:40] LABS: Glucose,Whole Blood 133 mg/dL (75-99)
--- NOTE | 2017-08-14 08:53 | P.PN ---
Progress Note - Text Progress Note Date: 08/14/17 chf is chronic systolic in nature
[2017-08-14] MEDS ORDERED: predniSONE 10 MG TAB PO SCH (09:00)
[2017-08-14] MEDS ORDERED: FUROSEMIDE 20 MG TAB PO SCH (09:00)
[2017-08-14] MEDS ORDERED: LEVOFLOXACIN 500 MG TAB PO SCH (15:00)
== END 2017-08-13 18:53 | DRG 189 ==
LOC: EC 09:24 → 6SEL 11:26 → 4MS4W 08-12 14:58
PROVIDERS: ADMIT Hospitalist; ATTEND Hospitalist
DX: J96.01 Acute respiratory failure with hypoxia (principal); G93.41 Metabolic encephalopathy; I50.22 Chronic systolic (congestive) heart failure; E87.1 Hypo-osmolality and hyponatremia; I11.0 Hypertensive heart disease with heart failure; E11.9 Type 2 diabetes mellitus without complications; J44.0 Chronic obstructive pulmonary disease with (acute) lower respiratory infection; J44.1 Chronic obstructive pulmonary disease with (acute) exacerbation; J20.9 Acute bronchitis, unspecified; E78.5 Hyperlipidemia, unspecified; H54.8 Legal blindness, as defined in USA; H40.9 Unspecified glaucoma; Z79.84 Long term (current) use of oral hypoglycemic drugs; Z79.82 Long term (current) use of aspirin; Z79.899 Other long term (current) drug therapy; Z87.891 Personal history of nicotine dependence; Z83.3 Family history of diabetes mellitus; Z91.81 History of falling; Z88.5 Allergy status to narcotic agent; I69.398 Other sequelae of cerebral infarction
CPT/HCPCS: 36415; 36600; 70450; 71045; 74230; 80048; 80053; 82550; 82553; 82805; 83036; 83880; 84484; 85025; 85610; 85730; 87040; 87086; 87502; 93005; 94640; 94660; 94760; 96374; 99285

== ENCOUNTER 2017-08-20 11:12 | Inpatient (IN) | payer MEDICARE ==
[2017-08-20] MEDS ORDERED: VANCOMYCIN 1,500 MG in SODIUM CHLORIDE 0.9% 250 ML IVPB STA (11:40)
[2017-08-20] MEDS ORDERED: SODIUM CHLORIDE 0.9% 500 ML IV STA (11:40)
[2017-08-20] MEDS ORDERED: methylPREDNISolone SOD SUCCI 125 MG/2 ML VIAL IV STA (11:40)
[2017-08-20] MEDS ORDERED: SODIUM CHLORIDE 0.9% 1,000 ML IV STA (11:40)
[2017-08-20] MEDS ORDERED: IPRATROPIUM-ALBUTEROL 3 ML NEB INHALATION STA (11:40)
[2017-08-20] MEDS ORDERED: VANCOMYCIN IV PER PHARMACY 1 EACH MISC MISCELLANE PRN (11:42)
[2017-08-20] MEDS ORDERED: ACETAMINOPHEN TAB 500 MG TAB PO STA (11:43)
[2017-08-20] MEDS ORDERED: PIPERACILLIN-TAZOBACTAM 3.375 GM in DEXTROSE/WATER 1 50ML.BAG IVPB STA (11:44)
--- NOTE | 2017-08-20 11:51 | ED ---
SOB HPI - General Chief Complaint: Shortness of Breath Stated Complaint: SOB Time Seen by Provider: 08/20/17 11:36 Source: patient, EMS Mode of arrival: EMS Limitations: no limitations, physical limitation - History of Present Illness Initial Comments: This 72-year-old white male presents with a complaint of some shortness of breath which she's had over the past one day. He has had occasional cough without production. He does present with a fever. He apparently had him slight chest pain to his midsternal region earlier as well. He denies any leg pain or swelling. He denies any urinary frequency urgency or dysuria. He, overall, is very poor historian. Old records indicate that he was just discharged a couple days ago after being admitted with COPD and tracheal bronchitis. He was sent to subacute rehab at that time. History is limited as patient is a very poor historian and states that he just does not feel well. - Related Data Home Medications Medication Instructions Recorded Confirmed metFORMIN HCL [Glucophage] 500 mg PO BID@0900,1700 05/05/16 08/20/17 Albuterol Nebulized [Ventolin 2.5 mg INHALATION RT-Q6H PRN 08/11/17 08/20/17 Nebulized] Aspirin 81 mg PO DAILY@0900 08/11/17 08/20/17 Lisinopril [Prinivil] 5 mg PO DAILY@0900 08/11/17 08/20/17 Metoprolol Tartrate [Lopressor] 25 mg PO BID@0900,1700 08/11/17 08/20/17 Acetaminophen [Tylenol Arthritis] 650 mg PO Q4H PRN 08/20/17 08/20/17 Furosemide [Lasix] 20 mg PO DAILY@0900 08/20/17 08/20/17 INSULIN LISPRO (HumaLOG) [humaLOG] See Protocol SQ ACHS 08/20/17 08/20/17 Pantoprazole [Protonix] 40 mg PO BID@0600,1400 08/20/17 08/20/17 Previous Rx's Medication Instructions Recorded Ipratropium-Albuterol Nebulize 3 ml INHALATION RT-QID ampul.neb 08/13/17 [Duoneb 0.5 mg-3 mg/3 ml Soln] predniSONE 10 mg PO DIRECTED #18 tab 03/19/18 Allergies Allergy/AdvReac Type Severity Reaction Status Date / Time hydrocodone bitartrate AdvReac Nausea Verified 08/20/17 11:39 [From Vicodin] Review of Systems ROS Statement: Those systems with pertinent positive or pertinent negative responses have been documented in the HPI. ROS Other: All systems not noted in ROS Statement are negative. 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 ddd, old t12 compression fx, spopndylothesis ( per chest xray) History of Any Multi-Drug Resistant Organisms: None Reported Past Surgical History: No Surgical Hx Reported Additional Past Surgical History / Comment(s): unknown Past Anesthesia/Blood Transfusion Reactions: No Reported Reaction Past Psychological History: No Psychological Hx Reported Smoking Status: Former smoker Past Alcohol Use History: None Reported Past Drug Use History: None Reported - Past Family History Father Family Medical History: Diabetes Mellitus Mother Family Medical History: Dementia, Diabetes Mellitus Brother(s) Family Medical History: Unable to Obtain General Exam - General Exam Comments Initial Comments: GENERAL: The patient is well nourished and well hydrated. VITAL SIGNS: Heart rate, blood pressure, respiratory rate reviewed as recorded in nurse's notes. EYES: Pupils are round and reactive. Extraocular movements are intact. No conjunctival / lid redness or swelling. ENT: No external evidence of injury, swelling, or ecchymosis. Airway is patent. Throat is clear. NECK: Nontender. No swelling or evidence of injury. No subcutaneous emphysema. Trachea is midline. No thyroid mass. HEART: Tachycardic heart rate noted at 125. Good peripheral pulses. LUNGS/CHEST: Wheezing and rhonchi are noted bilaterally. No ecchymosis, subcutaneous emphysema, or tenderness. ABDOMEN: Abdomen soft without tenderness. No palpable masses or organomegaly. No peritoneal signs. No abdominal wall swelling or ecchymosis. EXTREMITIES: No extremity tenderness. Normal muscle tone and function. No thoracolumbar tenderness. NEUROLOGIC: Sensation is grossly intact. Cranial nerve exam reveals face is symmetrical, tongue is midline, speech is clear. SKIN: No abrasions or ecchymosis is noted. No induration or masses noted. PSYCHIATRIC: Alert and answers questions but is a very poor historian. Limitations: no limitations, physical limitation Course Vital Signs 08/20/17 08/20/17 08/20/17 11:31 11:53 12:10 Temperature 101 F H Pulse Rate 131 H 117 H Respiratory 23 23 Rate Blood Pressure 126/60 O2 Sat by Pulse 96 Oximetry 08/20/17 08/20/17 12:11 13:31 Temperature 99.1 F Pulse Rate 122 H 107 H Respiratory 19 Rate Blood Pressure 129/59 O2 Sat by Pulse 97 Oximetry Medical Decision Making - Medical Decision Making The patient was seen and examined. All diagnostics are reviewed. An IV is started and he does receive some IV fluids. He is fairly tachycardic and has a fever. He receives some Tylenol. He also receives some Zosyn and vancomycin is use recently in the hospital and pneumonia is suspected. He receives a double DuoNeb breathing treatment as well as some Solu-Medrol IV. The EKG shows a sinus tachycardia at a rate of 128. There is a widened QRS at 130 and changes consistent with a right bundle-branch block. It is felt as though the associated ST-T wave changes are likely related to the right bundle-branch block. The NE intervals 136 and the QTC is 461. The patient also receives some Toradol for his fever. His laboratory came back showing an elevated troponin, decreased magnesium, and and an elevated glucose with no other acute abnormalities. His chest x-ray did not show any signs of pneumonia or acute process. He is improved on recheck. It is felt as though he would require admission to the hospital for further treatment. The possibility of acute coronary syndrome certainly is possible. The possibility of a COPD and bronchitis exacerbation or possible as well. He has been unable to give us a urine as of yet but will be checked for infection as well. Case is discussed with internal medicine and they're agreeable to admission. - Lab Data Result diagrams: 08/20/17 12:04 08/20/17 12:04 Lab Results 08/20/17 08/20/17 08/20/17 Range/Units 12:04 12:04 12:04 WBC 10.2 (3.8-10.6) k/uL RBC 4.81 (4.30-5.90) m/uL Hgb 13.6 (13.0-17.5) gm/dL Hct 42.4 (39.0-53.0) % MCV 88.0 (80.0-100.0) fL MCH 28.2 (25.0-35.0) pg MCHC 32.0 (31.0-37.0) g/dL RDW 12.8 (11.5-15.5) % Plt Count 328 (150-450) k/uL Neutrophils % 72 % Lymphocytes % 16 % Monocytes % 10 % Eosinophils % 1 % Basophils % 1 % Neutrophils # 7.3 (1.3-7.7) k/uL Lymphocytes # 1.6 (1.0-4.8) k/uL Monocytes # 1.0 (0-1.0) k/uL Eosinophils # 0.1 (0-0.7) k/uL Basophils # 0.1 (0-0.2) k/uL PT (9.0-12.0) sec INR (<1.2) APTT (22.0-30.0) sec Sodium 140 (137-145) mmol/L Potassium 3.9 (3.5-5.1) mmol/L Chloride 98 (98-107) mmol/L Carbon Dioxide 28 (22-30) mmol/L Anion Gap 14 mmol/L BUN 24 H (9-20) mg/dL Creatinine 1.00 (0.66-1.25) mg/dL Est GFR (CKD-EPI)AfAm 85 (>60 ml/min/1.73 sqM) Est GFR (CKD-EPI)NonAf 74 (>60 ml/min/1.73 sqM) Glucose 184 H (74-99) mg/dL Plasma Lactic Acid Daniel (0.7-2.0) mmol/L Calcium 8.7 (8.4-10.2) mg/dL Magnesium 1.5 L (1.6-2.3) mg/dL Total Bilirubin 0.6 (0.2-1.3) mg/dL AST 13 L (17-59) U/L ALT 17 L (21-72) U/L Alkaline Phosphatase 93 (38-126) U/L Total Creatine Kinase 44 L (55-170) U/L CK-MB (CK-2) 1.1 (0.0-2.4) ng/mL CK-MB (CK-2) Rel Index 2.5 Troponin I 0.036 H* (0.000-0.034) ng/mL NT-Pro-B Natriuret Pep pg/mL Total Protein 6.6 (6.3-8.2) g/dL Albumin 3.7 (3.5-5.0) g/dL 08/20/17 08/20/17 08/20/17 Range/Units 12:04 12:04 12:04 WBC (3.8-10.6) k/uL RBC (4.30-5.90) m/uL Hgb (13.0-17.5) gm/dL Hct (39.0-53.0) % MCV (80.0-100.0) fL MCH (25.0-35.0) pg MCHC (31.0-37.0) g/dL RDW (11.5-15.5) % Plt Count (150-450) k/uL Neutrophils % % Lymphocytes % % Monocytes % % Eosinophils % % Basophils % % Neutrophils # (1.3-7.7) k/uL Lymphocytes # (1.0-4.8) k/uL Monocytes # (0-1.0) k/uL Eosinophils # (0-0.7) k/uL Basophils # (0-0.2) k/uL PT 10.1 (9.0-12.0) sec INR 1.0 (<1.2) APTT 22.6 (22.0-30.0) sec Sodium (137-145) mmol/L Potassium (3.5-5.1) mmol/L Chloride (98-107) mmol/L Carbon Dioxide (22-30) mmol/L Anion Gap mmol/L BUN (9-20) mg/dL Creatinine (0.66-1.25) mg/dL Est GFR (CKD-EPI)AfAm (>60 ml/min/1.73 sqM) Est GFR (CKD-EPI)NonAf (>60 ml/min/1.73 sqM) Glucose (74-99) mg/dL Plasma Lactic Acid Daniel 1.9 (0.7-2.0) mmol/L Calcium (8.4-10.2) mg/dL Magnesium (1.6-2.3) mg/dL Total Bilirubin (0.2-1.3) mg/dL AST (17-59) U/L ALT (21-72) U/L Alkaline Phosphatase (38-126) U/L Total Creatine Kinase (55-170) U/L CK-MB (CK-2) (0.0-2.4) ng/mL CK-MB (CK-2) Rel Index Troponin I (0.000-0.034) ng/mL NT-Pro-B Natriuret Pep 2020 pg/mL Total Protein (6.3-8.2) g/dL Albumin (3.5-5.0) g/dL Disposition Clinical Impression: Acute exacerbation of chronic obstructive airways disease, Dyspnea, Chest pain , Fever, Sinus tachycardia, Right bundle branch block (RBBB), Bronchitis, Elevated troponin, Hypomagnesemia, Hyperglycemia, NSTEMI (non-ST elevated myocardial infarction) Disposition: ADMITTED IP TO THIS [facility] Condition: Fair Time of Disposition: 14:44 Decision Date: 08/20/17 Decision Time: 14:44
[2017-08-20] MEDS ORDERED: KETOROLAC 30 MG/ML 1 ML VIAL IVP STA (12:16)
[2017-08-20 12:20] LABS: Basophils # (A) 0.1 k/uL (0-0.2); Basophils % (A) 1 %; Eosinophils # (A) 0.1 k/uL (0-0.7); Eosinophils % (A) 1 %; HCT 42.4 % (39.0-53.0); HGB 13.6 gm/dL (13.0-17.5); Lymphocytes # (A) 1.6 k/uL (1.0-4.8); Lymphocytes % (A) 16 %; MCH 28.2 pg (25.0-35.0); Mean Platelet Volume 7.9; Monocytes % (A) 10 %; Neutrophils # (A) 7.3 k/uL (1.3-7.7); Neutrophils % (A) 72 %; Platelet Count 328 k/uL (150-450); RBC 4.81 m/uL (4.30-5.90); RDW 12.8 % (11.5-15.5); WBC 10.2 k/uL (3.8-10.6)
[2017-08-20 12:28] LABS: Partial Thromboplastin Time 22.6 sec (22.0-30.0); Prothrombin Time 10.1 sec (9.0-12.0)
[2017-08-20 12:41] LABS: Albumin 3.7 g/dL (3.5-5.0); Calcium 8.7 mg/dL (8.4-10.2); Magnesium 1.5 mg/dL (1.6-2.3); Potassium 3.9 mmol/L (3.5-5.1); Total Bilirubin 0.6 mg/dL (0.2-1.3); Total Protein 6.6 g/dL (6.3-8.2)
--- NOTE | 2017-08-20 12:56 | XR ---
EXAMINATION TYPE: XR chest 1V portable DATE OF EXAM: 08/20/2017 COMPARISON: Chest x-ray August 11, 2017. CTA chest January 25, 2017. HISTORY: Shortness of breath. TECHNIQUE: Single AP portable frontal supine view of the chest is obtained. FINDINGS: There is chronic parenchymal change without suspicious new focal air space opacity, pleura l effusion, or pneumothorax seen. The cardiac silhouette size is stable and enlarged with atheroscle rotic thoracic aorta. The osseous structures are demineralized. IMPRESSION: Chronic changes and cardiomegaly without acute pulmonary process.
[2017-08-20 13:00] LABS: Creatine Kinase MB 1.1 ng/mL (0.0-2.4)
[2017-08-20 13:05] LABS: Troponin I 0.036 ng/mL (0.000-0.034)
[2017-08-20] MEDS ORDERED: NITROGLYCERIN SL TABS 0.4 MG TAB SUBLINGUAL PRN (14:45)
[2017-08-20] MEDS ORDERED: HEPARIN SODIUM,PORCINE 5,000 UNIT/ML 1 ML VIAL IV PRN (14:45)
[2017-08-20] MEDS ORDERED: HEPARIN SOD,PORK IN 0.45% NACL 25,000 UNIT in 0.45% NACL 1 500ML.BAG IV SCH (14:45)
[2017-08-20] MEDS ORDERED: HEPARIN SODIUM,PORCINE 5,000 UNIT/ML 1 ML VIAL IV ONE (14:45)
[2017-08-20] MEDS: IPRATROPIUM-ALBUTEROL 3 ML NEB INHALATION SCH ×3 (16:30→23:16)
[2017-08-20] MEDS: MAGNESIUM SULFATE-D5W PMX 1 GM in DEXTROSE/WATER 1 100ML.BAG IVPB SCH ×2 (16:51→18:04)
[2017-08-20] MEDS: metFORMIN 500 MG TAB PO SCH (17:11)
[2017-08-20] MEDS: methylPREDNISolone SOD SUCCI 125 MG/2 ML VIAL IV SCH ×2 (17:14→20:26)
[2017-08-20] MEDS: INSULIN ASPART 100 UNIT/ML 1 ML 10 ML VIAL SQ SCH ×2 (17:14→20:25)
[2017-08-20 17:21] LABS: Glucose,Whole Blood 231 mg/dL (75-99)
[2017-08-20] MEDS ORDERED: ACETAMINOPHEN TAB 325 MG TAB PO PRN (18:00)
[2017-08-20 18:48] LABS: Creatine Kinase MB 1.3 ng/mL (0.0-2.4); Troponin I 0.043 ng/mL (0.000-0.034)
--- NOTE | 2017-08-20 19:09 | ECHOF ---
Referral Reason:sob and cp MEASUREMENTS -------- HEIGHT: 157.5 cm WEIGHT: 79.4 kg BP: 134/60 RVIDd: 2.7 cm (< 3.3) IVSd: 1.6 cm (0.6 - 1.1) LVIDd: 4.5 cm (3.9 - 5.3) LVPWd: 1.4 cm (0.6 - 1.1) IVSs: 1.9 cm LVIDs: 3.6 cm LVPWs: 1.9 cm LA Diam: 3.5 cm (2.7 - 3.8) LAESV Index (A-L): 30.15 ml/m Ao Diam: 3.8 cm (2.0 - 3.7) AV Cusp: 2.0 cm (1.5 - 2.6) MV EXCURSION: 8.330 mm (> 18.000) MV EF SLOPE: 17 mm/s (70 - 150) EPSS: 1.2 cm MV E Sanchez: 1.20 m/s MV DecT: 260 ms MV A Sanchez: 1.66 m/s MV E/A Ratio: 0.72 AV maxP.41 mmHg AV meanP.58 mmHg FINDINGS -------- Sinus rhythm. This was a technically difficult study with suboptimal apical views. The left ventricular size is normal. There is moderate concentric left ventricular hypertrophy. O verall left ventricular systolic function is low-normal with, an EF between 50 - 55 %. The right ventricle is normal in size. LA is midly dilated 29-33ml/m2. The right atrium is normal in size. 3 ml of Lumason was utilized for enhancement of images. There is mild aortic valve sclerosis. There is mild aortic regurgitation. There is mild aortic st enosis present. Peak/mean gradient across the Aortic Valve is 17.41mmHg / 9.58mmHg. The mitral valve leaflets are mildly thickened. Mild mitral annular calcification present. Mild m itral regurgitation is present. Mild tricuspid regurgitation present. There is no pulmonic regurgitation present. The aortic root size is normal. There is a small pericardial effusion located near the left ventricle. CONCLUSIONS -------- 1. Sinus rhythm. 2. This was a technically difficult study with suboptimal apical views. 3. The left ventricular size is normal. 4. There is moderate concentric left ventricular hypertrophy. 5. Overall left ventricular systolic function is low-normal with, an EF between 50 - 55 %. 6. The right ventricle is normal in size. 7. LA is midly dilated 29-33ml/m2. 8. The right atrium is normal in size. 9. 3 ml of Lumason was utilized for enhancement of images. 10. There is mild aortic valve sclerosis. 11. There is mild aortic regurgitation. 12. There is mild aortic stenosis present. 13. Peak/mean gradient across the Aortic Valve is 17.41mmHg / 9.58mmHg. 14. The mitral valve leaflets are mildly thickened. 15. Mild mitral annular calcification present. 16. Mild mitral regurgitation is present. 17. Mild tricuspid regurgitation present. 18. There is no pulmonic regurgitation present. 19. The aortic root size is normal. 20. There is a small pericardial effusion located near the left ventricle. PSYCHOLOGISTS: Trinity Clarke RDCS
--- NOTE | 2017-08-20 19:55 | P.CNPUL ---
History of Present Illness Consult date: 08/20/17 Reason for consult: dyspnea, COPD History of present illness: A 72-year-old male patient with known history of COPD was coming into the hospital after a few days of being discharged from the hospital for altered mentation and shortness of breath. Fact the patient had a similar presentation during which the patient was evaluated by our pulmonary services. He was found to be in acute COPD exacerbation and he was found to be acutely bronchospastic and wheezy. He also had a temperature spike of 101.0. He has been afebrile since. At that time the chest x-ray showed no acute abnormalities. The patient was treated with a combination of bronchodilators and steroids and he was discharged back to [facility] where he resides. He is very much debilitated. He is a poor historian. He gives simple answers by saying yes and no. 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 He is diabetic and also has problems with hypertension and hyperlipidemia. He has also been involved in a stroke in the past. The patient has no congested cough. He has not had any episodes of aspiration and a previous swallow evaluation was done showed no indication that the patient is an increased risk for aspiration. He denies having any chest pain. He is moving all 4 extremities and he can follow only simple commands. The patient is currently on a combination of bronchodilators and steroids. Troponin was minimally elevated and the patient was started also on IV heparin. I reviewed EKG and the patient has a right bundle branch block pattern that was also present on previous EKGs from previous hospitalization and this is not an obviously a new finding. His current echocardiogram showed no acute abnormalities and a chest x-ray is not showing any acute abnormalities. CAT scan of the head that was done on 08/11/2017 was also within normal limits. Review of Systems ROS unobtainable: due to mental status (Review of systems cannot be obtained, patient is not verbal, and no family members available.) Patient gives simple answers by saying yes and no. He is following some simple commands. He denies being in any chest pain. He denies also being short of breath however his noticeable labored breathing and he is also bronchospastic and wheezy. He has cataract in both eyes and he cannot see at all. He is legally blind. He denies having any back pain although based on the records he has a T12 compression fracture. No reported aspiration. No reported angina or chest pain. No reported wounds, ulcerations, or falls. 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 ddd, old t12 compression fx, spopndylothesis ( per chest xray), wears attend,incont stool/urine. bed bound w / assist to chair. per [facility]- pt's baseline is alert,cooperative and knows person/place and normally he has a very good appetite-"they know he not feeling well when he does'nt feel like eating". History of Any Multi-Drug Resistant Organisms: None Reported Past Surgical History: No Surgical Hx Reported Additional Past Surgical History / Comment(s): unknown Past Anesthesia/Blood Transfusion Reactions: No Reported Reaction Smoking Status: Former smoker - Past Family History Father Family Medical History: Diabetes Mellitus Mother Family Medical History: Dementia, Diabetes Mellitus Brother(s) Family Medical History: Unable to Obtain Medications and Allergies Home Medications Medication Instructions Recorded Confirmed Type metFORMIN HCL [Glucophage] 500 mg PO BID@0900,1700 05/05/16 08/20/17 History Albuterol Nebulized [Ventolin 2.5 mg INHALATION RT-Q6H PRN 08/11/17 08/20/17 History Nebulized] Aspirin 81 mg PO DAILY@0900 08/11/17 08/20/17 History Lisinopril [Prinivil] 5 mg PO DAILY@0900 08/11/17 08/20/17 History Metoprolol Tartrate [Lopressor] 25 mg PO BID@0900,1700 08/11/17 08/20/17 History Ipratropium-Albuterol Nebulize 3 ml INHALATION RT-QID ampul.neb 08/13/17 Rx [Duoneb 0.5 mg-3 mg/3 ml Soln] predniSONE 10 mg PO DIRECTED #18 tab 08/13/17 08/20/17 Rx Acetaminophen [Tylenol Arthritis] 650 mg PO Q4H PRN 08/20/17 08/20/17 History Furosemide [Lasix] 20 mg PO DAILY@0900 08/20/17 08/20/17 History INSULIN LISPRO (HumaLOG) [humaLOG] See Protocol SQ ACHS 08/20/17 08/20/17 History Pantoprazole [Protonix] 40 mg PO BID@0600,1400 08/20/17 08/20/17 History Allergies Allergy/AdvReac Type Severity Reaction Status Date / Time hydrocodone bitartrate AdvReac Nausea Verified 08/20/17 11:39 [From Vicodin] Physical Exam Vitals: Vital Signs Temp Pulse Pulse Resp BP BP Pulse Ox 08/20/17 19:24 89 16 08/20/17 19:13 93 16 08/20/17 16:40 94 16 08/20/17 16:31 94 16 08/20/17 16:14 98 F 90 18 143/64 96 08/20/17 13:31 99.1 F 107 H 19 129/59 97 08/20/17 12:11 122 H 08/20/17 12:10 23 08/20/17 11:53 117 H 08/20/17 11:31 101 F H 131 H 23 126/60 96 Intake and Output 08/20/17 08/20/17 08/20/17 06:59 14:59 22:59 Intake Total 50 Balance 50 Intake: Intake, IV Titration 50 Amount Piperacillin-Tazobactam 3 50 .375 gm In Dextrose/Water 1 50ml.bag @ 12.5 mls/hr IVPB Q8H [facility] Rx#: [id number] Other: Weight 79.379 kg Limitations: Legally blind with bilateral cataract and glaucoma physical limitation General appearance: 72-year-old white male, a mild degree of respiratory distress. Head exam: Atraumatic, normocephalic. Eye exam: Chronic opacification of both eyes noted. No icterus. Neck exam: No neck masses, no stridor. Moist mucous membranes noted. Respiratory exam: Diminished breath sounds at the bases, no crackles or rhonchi or wheezes. No chest wall tenderness. Symmetrical expansion noted. The patient had diffuse expiratory wheezes throughout the lung [place] bilaterally and prolongation of expiratory phase of breathing Cardiac: Normal S1 and S2 no gallops, no murmur. GI/Abdominal exam: Obese, soft, nontender, no megaly, no rebound, positive bowel sounds. Extremities exam: No clubbing edema or cyanosis. Neurological exam: Awake, however the patient does follow simple commands. He does not verbalize long sentences and he answers yes and no. Psychiatric exam: Flat affect otherwise cannot be assessed. Skin exam: Present: normal color Results - Laboratory Findings CBC and BMP: 08/20/17 12:04 08/20/17 12:04 PT/INR, D-dimer PT 10.1 sec (9.0-12.0) 08/20/17 12:04 INR 1.0 (<1.2) 08/20/17 12:04 Abnormal lab findings: Abnormal Labs 08/20/17 08/20/17 08/20/17 12:04 12:04 17:08 BUN 24 H Glucose 184 H POC Glucose (mg/dL) 231 H Magnesium 1.5 L AST 13 L ALT 17 L Total Creatine Kinase 44 L Troponin I 0.036 H* 08/20/17 17:58 BUN Glucose POC Glucose (mg/dL) Magnesium AST ALT Total Creatine Kinase 38 L Troponin I 0.043 H* - Diagnostic Findings Chest x-ray: image reviewed Assessment and Plan Plan: Assessment 1 acute COPD exacerbation with secondary shortness of breath. The patient is acutely bronchus spastic and wheezy. Chest x-ray shows no acute abnormalities. No evidence of any pneumonia or pulmonary infiltration. Aspiration cannot be completely ruled out. The patient had a recent evaluation of the swallow done on 08/11/2017 and he was not found to be at an increased risk. Echocardiogram shows a preserved LV function without any LV dysfunction or valvular abnormalities 2 legally blind with bilateral glucoma's/cataracts 3 previous history of CVA 4 diabetes mellitus type 2 5 hypertension 6 hyperlipidemia 7 old T12 compression fracture of the spine along with spondylolisthesis 8 minimal troponin leak without any acute EKG abnormalities. The patient has a right bundle branch block pattern on his EKG, currently on IV heparin Plan Aspiration precautions. DuoNeb neb last treatment [id number]. IV Solu- Medrol. Empiric antibiotic coverage with IV Zosyn. Previous cultures of been all negative. Monitor chest x-ray findings. Monitor blood sugar and put the patient on sliding scale insulin for blood sugar control. Monitor the troponins and if negative stop the IV heparin. Influenza screen. We'll continue to follow. Prognosis obviously poor based on his poor baseline performance and functional status. He is a [facility]. We'll need to establish CODE STATUS.
[2017-08-20] MEDS: PIPERACILLIN-TAZOBACTAM 3.375 GM in DEXTROSE/WATER 1 50ML.BAG IVPB SCH (20:14)
[2017-08-20 20:37] LABS: Glucose,Whole Blood 309 mg/dL (75-99)
[2017-08-20] MEDS ORDERED: METOPROLOL TARTRATE 25 MG TAB PO SCH (21:00)
[2017-08-20 22:17] LABS: Glucose,Whole Blood 263 mg/dL (75-99)
[2017-08-20] MEDS ORDERED: CALCIUM CARBONATE 500 MG CHEWABLE PO PRN (22:44)
[2017-08-20] MEDS ORDERED: NALOXONE 0.4 MG/ML 1 ML VIAL IV PRN (22:44)
[2017-08-20] MEDS ORDERED: LORazepam 0.5 MG TAB PO PRN (22:44)
[2017-08-20] MEDS ORDERED: ONDANSETRON 4 MG/2 ML VIAL IVP PRN (22:44)
[2017-08-20] MEDS ORDERED: MELATONIN 3 MG TABLET PO PRN (22:44)
[2017-08-20] MEDS: guaiFENesin 600 MG TABLET.ER PO SCH (23:14)
[2017-08-20] MEDS: methylPREDNISolone SOD SUCCI 40 MG/ML 1 ML VIAL IV SCH (23:15)
--- NOTE | 2017-08-20 23:41 | HP ---
HISTORY AND PHYSICAL PRESENTING COMPLAINT: Short of breath and cough. HISTORY OF PRESENTING COMPLAINT: This is a 72-year-old patient resident of [facility], being followed by Dr. Azul. Chronic stable medical conditions include diabetes, legally blind, hypertension, hyperlipidemia, chronic right-sided weakness from prior stroke and incontinent of urine and stool, wearing briefs. The patient presents with increasing cough, congestion in the chest, fever, decreased appetite, tired, run down, wheezing and presented to the ER. REVIEW OF SYSTEMS: Fever, chills, decreased appetite, tired. HEENT: Poor eyesight. Patient can barely see. GASTROINTESTINAL: None. GENITOURINARY: None. MUSCULOSKELETAL: None. DERMATOLOGICAL: None. HEMATOLOGIC: None. LYMPHATIC: None. PSYCHIATRY: None. NEUROLOGICAL: Cannot see and chronic right-sided weakness. PAST MEDICAL HISTORY: COPD, stroke with residual right-sided weakness, diabetes mellitus type 2, hypertension, hyperlipidemia, legally blind, bilateral glaucoma, old T12 compression fracture, spondylolisthesis, doubly incontinent. The patient is bed bound with assist to the chair. PAST SURGICAL HISTORY: The patient does not know. SOCIAL HISTORY: Currently living at [facility]. The patient has smoked for close to 47 years, stopped in 2012. FAMILY HISTORY: Diabetes. HOME MEDICATIONS: 1. Prednisone taper. 2. Glucophage 500 mg p.o. b.i.d. 3. Protonix 40 mg b.i.d. 4. Lopressor 25 p.o. b.i.d. 5. Prinivil 5 mg p.o. daily. 6. DuoNeb q.i.d. 7. Insulin Lispro a.c. and h.s. 8. Lasix 20 mg a day. 9. Aspirin 81 mg a day. 10.Ventolin 2.5 q.6h p.r.n. 11.Tylenol arthritis. ALLERGIES: VICODIN. PHYSICAL EXAMINATION: VITAL SIGNS ON PRESENTATION: Temperature 101, pulse 131, respiration 23, blood pressure 123/60, pulse ox 96% on 2 L. GENERAL APPEARANCE: Well-built, BMI 32, somewhat dishevelled. EYES: Bilateral cataract. Conjunctiva normal. Haziness. HEENT: External appearance of nose and ears normal. Oral cavity, some missing teeth. NECK: JVD not raised. Mass not palpable. Respiratory effort increased. LUNGS: Visible expiration. Some scattered crackles. CARDIOVASCULAR: First and second sounds normal. Some mild edema. ABDOMEN: Soft, nontender. Liver and spleen not palpable. LYMPHATICS: No lymph nodes palpable in neck or axillae. PSYCHIATRY: Alert and oriented x3. Mood and affect normal. NEUROLOGICAL: Pupils clear, grossly intact. Power on the right side is 4/5. INVESTIGATIONS: White count 10.2, hemoglobin 13.6, potassium 3.9, BUN 24, creatinine 1.0, magnesium 1.5. Troponin 0.036 and 0.043. ProBNP is 2020. Influenza A and B negative. Chest x- ray supine, may be some infiltrate in the right base. ASSESSMENT: 1. Possible right basilar pneumonia, suspect gram-negative organism causing sepsis present on admission. 2. Acute chronic obstructive pulmonary disease exacerbation in ex-smoker. 3. Diabetes mellitus type 2 on oral hypoglycemic. 4. Legally blind. The patient cannot even perceive light from bilateral cataract and glaucoma. 5. Essential hypertension. 6. Hyperlipidemia. 7. 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 8. Urine and stool incontinent chronically. The patient uses a brace. 9. Medical debility. Patient needs assist to be transferred from bed to the chair. 10.Code status: FULL CODE. PLAN: Home medications are resumed. The patient is put on IV Zosyn, nebulized bronchodilators and IV steroids. We will also add some Mucinex. Do aspiration precautions. Accu-Cheks will be closely followed. Troponin leak is from hemodynamic mismatch. This is not acute coronary syndrome presentation, hence IV heparin will be discontinued. MMODL / IJN: [id number] /
[2017-08-21 01:34] LABS: Creatine Kinase MB 1.6 ng/mL (0.0-2.4); Troponin I 0.027 ng/mL (0.000-0.034)
[2017-08-21] MEDS: PIPERACILLIN-TAZOBACTAM 3.375 GM in DEXTROSE/WATER 1 50ML.BAG IVPB SCH ×3 (03:40→20:05)
[2017-08-21 03:52] LABS: Basophils % (A) 0 %; Eosinophils % (A) 0 %; HCT 38.4 % (39.0-53.0); Lymphocytes # (A) 0.7 k/uL (1.0-4.8); Lymphocytes % (A) 10 %; MCHC 33.8 g/dL (31.0-37.0); MCV 88.9 fL (80.0-100.0); Mean Platelet Volume 7.2; Monocytes # (A) 0.2 k/uL (0-1.0); Monocytes % (A) 2 %; Neutrophils # (A) 6.1 k/uL (1.3-7.7); Neutrophils % (A) 88 %; Platelet Count 296 k/uL (150-450); RBC 4.32 m/uL (4.30-5.90); RDW 12.6 % (11.5-15.5); WBC 6.9 k/uL (3.8-10.6)
[2017-08-21 04:10] LABS: Calcium 8.4 mg/dL (8.4-10.2); Potassium 4.1 mmol/L (3.5-5.1)
[2017-08-21] MEDS: PANTOPRAZOLE 40 MG TABLET PO SCH ×2 (06:24→13:26)
[2017-08-21 07:12] LABS: Glucose,Whole Blood 213 mg/dL (75-99)
[2017-08-21] MEDS: IPRATROPIUM-ALBUTEROL 3 ML NEB INHALATION SCH ×4 (07:24→19:47)
[2017-08-21] MEDS ORDERED: VANCOMYCIN 1,500 MG in SODIUM CHLORIDE 0.9% 250 ML IVPB SCH (08:00)
[2017-08-21] MEDS: INSULIN ASPART 100 UNIT/ML 1 ML 10 ML VIAL SQ SCH ×4 (08:41→21:52)
[2017-08-21] MEDS: ASPIRIN 325 MG TAB PO SCH (08:41)
[2017-08-21] MEDS: LISINOPRIL 5 MG TAB PO SCH (08:41)
[2017-08-21] MEDS: methylPREDNISolone SOD SUCCI 40 MG/ML 1 ML VIAL IV SCH ×3 (08:41→23:54)
[2017-08-21] MEDS: guaiFENesin 600 MG TABLET.ER PO SCH ×2 (08:42→21:52)
[2017-08-21] MEDS: metFORMIN 500 MG TAB PO SCH ×2 (08:42→17:13)
[2017-08-21] MEDS: METOPROLOL TARTRATE 25 MG TAB PO SCH ×2 (08:42→17:14)
[2017-08-21] MEDS ORDERED: FUROSEMIDE 20 MG TAB PO SCH (09:00)
[2017-08-21] MEDS: HEPARIN SODIUM,PORCINE 5,000 UNIT/ML 1 ML VIAL SQ SCH ×3 (10:38→23:57)
--- NOTE | 2017-08-21 11:23 | P.PN ---
Subjective Progress Note Date: 08/21/17 A 72-year-old male patient with known history of COPD was coming into the hospital after a few days of being discharged from the hospital for altered mentation and shortness of breath. Fact the patient had a similar presentation during which the patient was evaluated by our pulmonary services. He was found to be in acute COPD exacerbation and he was found to be acutely bronchospastic and wheezy. He also had a temperature spike of 101.0. He has been afebrile since. At that time the chest x-ray showed no acute abnormalities. The patient was treated with a combination of bronchodilators and steroids and he was discharged back to [facility] where he resides. He is very much debilitated. He is a poor historian. He gives simple answers by saying yes and no. 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 He is diabetic and also has problems with hypertension and hyperlipidemia. He has also been involved in a stroke in the past. The patient has no congested cough. He has not had any episodes of aspiration and a previous swallow evaluation was done showed no indication that the patient is an increased risk for aspiration. He denies having any chest pain. He is moving all 4 extremities and he can follow only simple commands. The patient is currently on a combination of bronchodilators and steroids. Troponin was minimally elevated and the patient was started also on IV heparin. I reviewed EKG and the patient has a right bundle branch block pattern that was also present on previous EKGs from previous hospitalization and this is not an obviously a new finding. His current echocardiogram showed no acute abnormalities and a chest x-ray is not showing any acute abnormalities. CAT scan of the head that was done on 08/11/2017 was also within normal limits. On 08/21/2017 the patient is looking better compared to yesterday. His last bronchus spastic and wheezy. He is tolerating his diet. No nausea. No vomiting. No emesis. No aspiration. He had only one spike of temperature of 10 1F and since then the patient has not spiked any temperature. He remains on a combination of Zosyn and vancomycin. This has been an empiric antibiotic coverage. No leukocytosis. Hemodynamically stable. He is a selective overflow who came in to the intensive care unit. Mentation is essentially the same, probably slightly more awake compared to yesterday and more interactive. He is on IV Solu-Medrol. He has developed some mild steroid-induced hyperglycemia for which is on a insulin by sliding scale coverage. Troponins were noted. Most recent troponin is at 0.02 and the patient was taken off IV heparin and he was provided subcu heparin. Objective - Vital Signs Vital signs: Vital Signs Temp 98.7 F 08/21/17 08:00 Pulse 85 08/21/17 11:08 Resp 21 08/21/17 10:00 BP 144/68 08/21/17 10:00 Pulse Ox 97 08/21/17 10:00 Intake & Output 08/20/17 08/21/17 08/21/17 18:59 06:59 18:59 Intake Total 50 139.65 250 Balance 50 139.65 250 Weight 79.379 kg 90 kg 90 kg Intake: Intake, IV Titration 50 139.65 Amount Heparin Sod,Pork in 0.45% 139.65 NaCl 25,000 unit In 0.45 % NaCl 1 500ml.bag @ 12 UNITS/KG/HR 19.05 mls/hr IV .Q24H EKATERINA Rx#: [id number] Piperacillin-Tazobactam 3 50 .375 gm In Dextrose/Water 1 50ml.bag @ 12.5 mls/hr IVPB Q8H EKATERINA Rx#: [id number] Oral 250 Other: Voiding Method Diaper Diaper # Voids 1 - Exam Limitations: Legally blind with bilateral cataract and glaucoma physical limitation General appearance: 72-year-old white male, a mild degree of respiratory distress. Head exam: Atraumatic, normocephalic. Eye exam: Chronic opacification of both eyes noted. No icterus. Neck exam: No neck masses, no stridor. Moist mucous membranes noted. Respiratory exam: Diminished breath sounds at the bases, no crackles or rhonchi or wheezes. No chest wall tenderness. Symmetrical expansion noted. The patient had diffuse expiratory wheezes this is improved compared to yesterday and the patient is last bronchus spastic and wheezy compared to yesterday. Cardiac: Normal S1 and S2 no gallops, no murmur. GI/Abdominal exam: Obese, soft, nontender, no megaly, no rebound, positive bowel sounds. Extremities exam: No clubbing edema or cyanosis. Neurological exam: Awake, however the patient does follow simple commands. He does not verbalize long sentences and he answers yes and no. Psychiatric exam: Flat affect otherwise cannot be assessed. Skin exam: Present: normal color - Labs CBC & Chem 7: 08/21/17 03:16 08/21/17 03:16 Labs: Abnormal Lab Results - Last 24 Hours (Table) 08/20/17 08/20/17 08/20/17 Range/Units 12:04 12:04 17:08 Hct (39.0-53.0) % Lymphocytes # (1.0-4.8) k/uL APTT (22.0-30.0) sec Sodium (137-145) mmol/L BUN 24 H (9-20) mg/dL Glucose 184 H (74-99) mg/dL POC Glucose (mg/dL) 231 H (75-99) mg/dL Magnesium 1.5 L (1.6-2.3) mg/dL AST 13 L (17-59) U/L ALT 17 L (21-72) U/L Total Creatine Kinase 44 L (55-170) U/L Troponin I 0.036 H* (0.000-0.034) ng/mL LDL Cholesterol, Calc (0-99) mg/dL 08/20/17 08/20/17 08/20/17 Range/Units 17:58 20:22 21:45 Hct (39.0-53.0) % Lymphocytes # (1.0-4.8) k/uL APTT 69.5 H (22.0-30.0) sec Sodium (137-145) mmol/L BUN (9-20) mg/dL Glucose (74-99) mg/dL POC Glucose (mg/dL) 309 H (75-99) mg/dL Magnesium (1.6-2.3) mg/dL AST (17-59) U/L ALT (21-72) U/L Total Creatine Kinase 38 L (55-170) U/L Troponin I 0.043 H* (0.000-0.034) ng/mL LDL Cholesterol, Calc (0-99) mg/dL 08/20/17 08/21/17 08/21/17 Range/Units 22:13 00:40 03:16 Hct (39.0-53.0) % Lymphocytes # (1.0-4.8) k/uL APTT (22.0-30.0) sec Sodium 136 L (137-145) mmol/L BUN 25 H (9-20) mg/dL Glucose 231 H (74-99) mg/dL POC Glucose (mg/dL) 263 H (75-99) mg/dL Magnesium (1.6-2.3) mg/dL AST (17-59) U/L ALT (21-72) U/L Total Creatine Kinase 39 L (55-170) U/L Troponin I (0.000-0.034) ng/mL LDL Cholesterol, Calc 107 H (0-99) mg/dL 08/21/17 08/21/17 Range/Units 03:16 07:09 Hct 38.4 L (39.0-53.0) % Lymphocytes # 0.7 L (1.0-4.8) k/uL APTT (22.0-30.0) sec Sodium (137-145) mmol/L BUN (9-20) mg/dL Glucose (74-99) mg/dL POC Glucose (mg/dL) 213 H (75-99) mg/dL Magnesium (1.6-2.3) mg/dL AST (17-59) U/L ALT (21-72) U/L Total Creatine Kinase (55-170) U/L Troponin I (0.000-0.034) ng/mL LDL Cholesterol, Calc (0-99) mg/dL Assessment and Plan Plan: Assessment 1 acute COPD exacerbation with secondary shortness of breath. The patient is acutely bronchus spastic and wheezy. Chest x-ray shows no acute abnormalities. No evidence of any pneumonia or pulmonary infiltration. Aspiration cannot be completely ruled out. The patient had a recent evaluation of the swallow done on 08/11/2017 and he was not found to be at an increased risk. Echocardiogram shows a preserved LV function without any LV dysfunction or valvular abnormalities On 08/21/2017 the patient is less short of breath compared to yesterday and he is less focused spastic and wheezy. He is gradually improving. He is on a combination of bronchodilators and steroids. He did have one spike of temperature has been afebrile since. His chest x-ray was clear of any acute pulmonary infiltrates. No leukocytosis. No signs of septicemia. 2 legally blind with bilateral glucoma's/cataracts 3 previous history of CVA 4 diabetes mellitus type 2 5 hypertension 6 hyperlipidemia 7 old T12 compression fracture of the spine along with spondylolisthesis 8 minimal troponin leak without any acute EKG abnormalities. The patient has a right bundle branch block pattern on his EKG, currently free of any chest pain and the patient is off anticoagulation 9 single fever episode that has recovered Plan Aspiration precautions. Feliberto keane last treatment [id number]. IV Solu- Medrol. Empiric antibiotic coverage with IV Zosyn. We'll monitor the blood sugar. Continue IV Solu Medrol for another 24 hours and start tapering as of tomorrow. Aspiration precautions. He is afebrile. Cultures of been negative. He is progressively improving. More interactive compared to yesterday. We' ll continue to follow. He'll be moved out to a medical floor once beds available.
[2017-08-21 11:54] LABS: Glucose,Whole Blood 256 mg/dL (75-99)
--- NOTE | 2017-08-21 15:16 | CONS ---
CONSULTATION CHIEF COMPLAINT: Shortness of breath. Denis is a 72-year-old gentleman who is legally blind, who is currently a resident of [facility]. Has history of hypertension, diabetes, dyslipidemia, right-sided weakness, who presents to hospital complaining of cough, congestion, feeling fatigued, tired. Cardiology had been consulted because of mildly elevated troponins. He does not have any angina and denies any chest pain. REVIEW OF SYSTEMS: HEENT is significant for being blind. GI: Negative. GENITOURINARY: Negative. MUSCULOSKELETAL: Significant for arthritis. SKIN: Negative. LYMPHATIC: Negative. HEMATOLOGICAL: Negative. PSYCH: Negative. NEUROLOGICAL: Significant for chronic weakness. Rest of the system review is not relevant. PAST MEDICAL HISTORY: Significant for diabetes, hypertension, dyslipidemia, glaucoma. MEDICATIONS: At home included Glucophage, prednisone, Lopressor, Prinivil, DuoNeb, insulin, Lasix, aspirin. ALLERGIES: Patient is allergic to VICODIN. SOCIAL HISTORY: Patient is a [facility] PHYSICAL EXAM: Patient is comfortable at rest. Vital signs are stable. There is no jugular venous distention. Chest exam reveals good air entry bilaterally. Heart exam reveals first and second heart sounds. No gallop. No murmur. Abdomen is soft, nontender. Exam of extremities did not reveal any edema. Peripheral pulses are felt. LABS: Show a hemoglobin of 13, platelet count is 296. Potassium is 4.1, creatinine is 1. Troponin are at 0.03, 0.04 and 0.02. EKG shows sinus rhythm with right bundle branch block. Echocardiogram shows normal LV function with mild aortic stenosis and a small pericardial effusion. ASSESSMENT: 1. Shortness of breath, probably related to chronic obstructive pulmonary disease exacerbation. 2. Mild troponin elevation probably related to the acute underlying illness. However, I am going to obtain a D-dimer on him to rule out pulmonary embolism. 3. Clinically, patient is getting better. Troponins are getting better. EKG appears normal. MMODL / IJN: [id number] /
--- NOTE | 2017-08-21 15:25 | PN ---
PROGRESS NOTE DATE OF SERVICE: 08/21/2017 PRESENTING COMPLAINT: Cough, short of breath. INTERVAL HISTORY: Patient admitted with possible right-sided pneumonia, had a sepsis picture in the admission, but on antibiotics. Doing better. Still a bit of congestion in the chest, but less,. did tolerate a diet. Lying in bed. REVIEW OF SYSTEMS: Done for constitutional, cardiovascular, GI, pulmonary; relevant findings as above. CURRENT MEDICATIONS: Reviewed include IV Zosyn, IV Solu-Medrol, DuoNeb, Mucinex. PHYSICAL EXAMINATION: Afebrile, pulse 111, respiration 20, blood pressure 169/84, pulse ox 97% on 2 L. GENERAL APPEARANCE: Lying in bed, awake. EYES: Bilateral cornea haziness. Conjunctiva normal. HEENT: External nose and ears normal, oral cavity missing teeth. NECK: JVD not raised. Mass not palpable. Respiratory effort increased. LUNGS: Decreased breath sounds. Some expiratory crackles. CARDIOVASCULAR: First and second sounds normal. Minimal edema. ABDOMEN: Soft, nontender. Liver and spleen not palpable. PSYCHIATRY: Alert and oriented x3. Mood and affect was normal. NEUROLOGICAL: Power on the right side is 4/5. INVESTIGATIONS: White count 6.9, potassium 4.1, BUN 25, creatinine 1.0. Accu-Cheks are noted. ASSESSMENT: 1. Possible right basal pneumonia, suspect organism causing sepsis on presentation with clinical improvement. 2. Acute chronic obstructive pulmonary disease exacerbation in an ex-smoker. 3. Diabetes mellitus type 2 on oral hypoglycemic. 4. Legally blind, can only perceive light from bilateral cataract and glaucoma. 5. Essential hypertension. 6. Hyperlipidemia. 7. 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 8. Double urine still in contact, chronically uses a brief. 9. Medical debility, patient at the baseline needs help to be transferred. 10.CODE STATUS: FULL. PLAN: Continue with nebulized bronchodilators, IV antibiotics, IV Solu-Medrol. Will also add inhaled steroid. Prognosis is guarded. MMODL / IJN: [id number] /
[2017-08-21 17:44] LABS: Glucose,Whole Blood 164 mg/dL (75-99)
[2017-08-21 21:06] LABS: Glucose,Whole Blood 132 mg/dL (75-99)
[2017-08-22] MEDS: IPRATROPIUM-ALBUTEROL 3 ML NEB INHALATION PRN (04:25)
[2017-08-22] MEDS: PIPERACILLIN-TAZOBACTAM 3.375 GM in DEXTROSE/WATER 1 50ML.BAG IVPB SCH ×3 (04:54→19:54)
[2017-08-22] MEDS: PANTOPRAZOLE 40 MG TABLET PO SCH ×2 (05:56→14:18)
[2017-08-22] MEDS ORDERED: FUROSEMIDE 10 MG/ML 4 ML VIAL IV STA ×2 (06:09→15:46)
--- NOTE | 2017-08-22 07:17 | XR ---
EXAM: XR Chest, 1 View CLINICAL HISTORY: shortness of breath/wheezy TECHNIQUE: Frontal view of the chest. COMPARISON: 08/20/17 FINDINGS: Lungs: Unremarkable. No consolidation. Pleural space: Unremarkable. No pneumothorax. Heart: Unremarkable. No cardiomegaly. Mediastinum: Unremarkable. Bones/joints: Osteopenia. Moderate degenerative changes. Vasculature: Calcified aorta. IMPRESSION: No acute findings or substantial change.
[2017-08-22] MEDS: IPRATROPIUM-ALBUTEROL 3 ML NEB INHALATION SCH ×4 (07:20→19:14)
[2017-08-22 07:27] LABS: Glucose,Whole Blood 232 mg/dL (75-99)
[2017-08-22] MEDS: methylPREDNISolone SOD SUCCI 40 MG/ML 1 ML VIAL IV SCH (07:44)
[2017-08-22 08:17] LABS: Appearance,Urine Clear (Clear); Bilirubin,Urine Negative (Negative); Blood,Urine Trace (Negative); Color,Urine Light Yellow; Glucose,Urine (UA) Trace (Negative); Hyaline Casts,Urine 1 /lpf (0-2); Ketones,Urine Negative (Negative); Leukocyte Esterase,Urine Negative (Negative); Nitrite,Urine Negative (Negative); PH, Urine 5.5 (5.0-8.0); Protein,Urine Negative (Negative); RBC,Urine 5 /hpf (0-5); Urobilinogen,Urine <2.0 mg/dL (<2.0); WBC,Urine <1 /hpf (0-5)
[2017-08-22 08:30] LABS: HCT 39.6 % (39.0-53.0); MCH 28.8 pg (25.0-35.0); MCHC 32.8 g/dL (31.0-37.0); MCV 87.6 fL (80.0-100.0); Platelet Count 330 k/uL (150-450); RBC 4.52 m/uL (4.30-5.90); RDW 12.6 % (11.5-15.5); WBC 12.4 k/uL (3.8-10.6)
[2017-08-22 08:46] LABS: Calcium 8.6 mg/dL (8.4-10.2); Potassium 4.3 mmol/L (3.5-5.1)
[2017-08-22] MEDS: ASPIRIN 325 MG TAB PO SCH (08:49)
[2017-08-22] MEDS: guaiFENesin 600 MG TABLET.ER PO SCH ×2 (08:49→19:54)
[2017-08-22] MEDS: LISINOPRIL 5 MG TAB PO SCH (08:49)
[2017-08-22] MEDS: METOPROLOL TARTRATE 25 MG TAB PO SCH ×2 (09:55→17:04)
[2017-08-22] MEDS: HEPARIN SODIUM,PORCINE 5,000 UNIT/ML 1 ML VIAL SQ SCH ×3 (09:55→23:11)
[2017-08-22] MEDS: INSULIN ASPART 100 UNIT/ML 1 ML 10 ML VIAL SQ SCH ×4 (09:55→21:12)
[2017-08-22] MEDS: metFORMIN 500 MG TAB PO SCH ×2 (09:55→17:04)
[2017-08-22] MEDS ORDERED: cloNIDine HCL 0.2 MG TAB PO STA (10:20)
[2017-08-22] MEDS: methylPREDNISolone SOD SUCCI 125 MG/2 ML VIAL IV SCH ×3 (12:38→23:11)
[2017-08-22 12:39] LABS: Glucose,Whole Blood 386 mg/dL (75-99)
--- NOTE | 2017-08-22 12:51 | P.PN ---
Subjective Progress Note Date: 08/22/17 Principal diagnosis: COPD exacerbation with secondary shortness of breath A 72-year-old male patient with known history of COPD was coming into the hospital after a few days of being discharged from the hospital for altered mentation and shortness of breath. Fact the patient had a similar presentation during which the patient was evaluated by our pulmonary services. He was found to be in acute COPD exacerbation and he was found to be acutely bronchospastic and wheezy. He also had a temperature spike of 101.0. He has been afebrile since. At that time the chest x-ray showed no acute abnormalities. The patient was treated with a combination of bronchodilators and steroids and he was discharged back to [facility] where he resides. He is very much debilitated. He is a poor historian. He gives simple answers by saying yes and no. 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 He is diabetic and also has problems with hypertension and hyperlipidemia. He has also been involved in a stroke in the past. The patient has no congested cough. He has not had any episodes of aspiration and a previous swallow evaluation was done showed no indication that the patient is an increased risk for aspiration. He denies having any chest pain. He is moving all 4 extremities and he can follow only simple commands. The patient is currently on a combination of bronchodilators and steroids. Troponin was minimally elevated and the patient was started also on IV heparin. I reviewed EKG and the patient has a right bundle branch block pattern that was also present on previous EKGs from previous hospitalization and this is not an obviously a new finding. His current echocardiogram showed no acute abnormalities and a chest x-ray is not showing any acute abnormalities. CAT scan of the head that was done on 08/11/2017 was also within normal limits. On 08/21/2017 the patient is looking better compared to yesterday. His last bronchus spastic and wheezy. He is tolerating his diet. No nausea. No vomiting. No emesis. No aspiration. He had only one spike of temperature of 10 1F and since then the patient has not spiked any temperature. He remains on a combination of Zosyn and vancomycin. This has been an empiric antibiotic coverage. No leukocytosis. Hemodynamically stable. He is a selective overflow who came in to the intensive care unit. Mentation is essentially the same, probably slightly more awake compared to yesterday and more interactive. He is on IV Solu-Medrol. He has developed some mild steroid-induced hyperglycemia for which is on a insulin by sliding scale coverage. Troponins were noted. Most recent troponin is at 0.02 and the patient was taken off IV heparin and he was provided subcu heparin. On 08/22/2017 patient seen in follow-up. This morning he went into respiratory distress, rapid response team was called, who administered 40 mg of Lasix, patient has already been on IV steroids, and IV Zosyn. Patient was then placed on BiPAP support with pressures 10 and 5, and 30%. Patient started diuresing, he put out close to 400 mL in the first few hours of Lasix administration. Chest x-ray did not show any acute findings. Patient remains afebrile, denies any chest pain. He became very hypertensive this morning, with SBP in the 200s , and DBP in the 100s. Patient is on metoprolol 25 mg twice a day, and lisinopril 5 mg once daily. Despite that, the patient remains hypertensive. Last night he was having runs of VT, with the longest one up to 13 beats, followed by shorter runs of 3-4 beats. Today he is in sinus rhythm, he is tachycardic with a heart rate up to 118 BPM. We will obtain a 12-lead EKG. Patient is not tolerating BiPAP mask very well, is very restless, he is very uncomfortable, and requested to take the BiPAP mask off. We will give him a trial of nasal cannula, and so far he is tolerating 5 L per nasal cannula well. His shortness of breath has improved, although she remains diffusely wheezy. We will add Pulmicort and Brovana, continue with IV Solu-Medrol, we will increase the dose to 60 mg every 6 hours. Continue with current antibiotic coverage. Patient will be given 0.2 mg of Catapres for blood pressure control. She will be transferred to selective care unit for closer monitoring. Cardiology is also following. Objective - Vital Signs Vital signs: Vital Signs Temp 97.0 F L 08/22/17 06:37 Pulse 118 H 08/22/17 11:09 Resp 24 08/22/17 11:23 BP 210/101 08/22/17 10:45 Pulse Ox 97 08/22/17 10:45 Intake & Output 08/21/17 08/22/17 08/22/17 18:59 06:59 18:59 Intake Total 250 Balance 250 Weight 90 kg Intake: Oral 250 Other: Voiding Method Diaper Indwelling Catheter # Voids 1 3 - Exam Limitations: Legally blind with bilateral cataract and glaucoma physical limitation General appearance: 72-year-old white male, a mild degree of respiratory distress. Head exam: Atraumatic, normocephalic. Eye exam: Chronic opacification of both eyes noted. No icterus. Neck exam: No neck masses, no stridor. Moist mucous membranes noted. Respiratory exam: Diminished breath sounds at the bases, no crackles or rhonchi or wheezes. No chest wall tenderness. Symmetrical expansion noted. The patient has diffuse expiratory wheezes, no rhonchi no rails. Patient was on BiPAP support this morning with pressures of 10 and 5, and FiO2 of 30%, he is currently on 5 L per nasal cannula and tolerating it well. Cardiac: Normal S1 and S2 no gallops, no murmur. GI/Abdominal exam: Obese, soft, nontender, no megaly, no rebound, positive bowel sounds. Extremities exam: No clubbing edema or cyanosis. Neurological exam: Awake, however the patient does follow simple commands. He does not verbalize long sentences and he answers yes and no. Psychiatric exam: Flat affect otherwise cannot be assessed. Skin exam: Present: normal color - Labs CBC & Chem 7: 08/22/17 08:17 08/22/17 08:17 Labs: Abnormal Lab Results - Last 24 Hours (Table) 08/21/17 08/21/17 08/22/17 Range/Units 17:42 21:04 07:25 WBC (3.8-10.6) k/uL BUN (9-20) mg/dL Glucose (74-99) mg/dL POC Glucose (mg/dL) 164 H 132 H 232 H (75-99) mg/dL Urine Glucose (UA) (Negative) Urine Blood (Negative) 08/22/17 08/22/17 08/22/17 Range/Units 07:50 08:17 08:17 WBC 12.4 H (3.8-10.6) k/uL BUN 30 H (9-20) mg/dL Glucose 262 H (74-99) mg/dL POC Glucose (mg/dL) (75-99) mg/dL Urine Glucose (UA) Trace H (Negative) Urine Blood Trace H (Negative) Microbiology - Last 24 Hours (Table) 08/22/17 07:50 Urine Culture - Preliminary Urine,Catheterized 08/20/17 21:45 Blood Culture - Preliminary Blood No Growth after 24 hours 08/20/17 12:04 Blood Culture - Preliminary Blood No Growth after 24 hours Assessment and Plan Plan: Assessment: 1 acute COPD exacerbation with secondary shortness of breath. The patient is acutely bronchus spastic and wheezy. Chest x-ray shows no acute abnormalities. No evidence of any pneumonia or pulmonary infiltration. Aspiration cannot be completely ruled out. The patient had a recent evaluation of the swallow done on 08/11/2017 and he was not found to be at an increased risk. Echocardiogram shows a preserved LV function without any LV dysfunction or valvular abnormalities On 08/21/2017 the patient is less short of breath compared to yesterday and he is less focused spastic and wheezy. He is gradually improving. He is on a combination of bronchodilators and steroids. He did have one spike of temperature has been afebrile since. His chest x-ray was clear of any acute pulmonary infiltrates. No leukocytosis. No signs of septicemia. On 08/14/2017 patient had a bout of respiratory distress, required BiPAP support for 2-3 hours, 40 of Lasix was given. Chest x-ray did not show any acute findings. Patient remains diffusely wheezy. We will increase the dose of Solu-Medrol to 60 mg every 6 hours, and Pulmicort and Brovana 2 hypertension, currently not well controlled. We will add Catapres 0.2 mg for better control 3 nonsustained runs of ventricular tachycardia 4 legally blind with bilateral glucoma's/cataracts 5 previous history of CVA 6 diabetes mellitus type 2 7 hyperlipidemia 8 old T12 compression fracture of the spine along with spondylolisthesis 9 minimal troponin leak without any acute EKG abnormalities. The patient has a right bundle branch block pattern on his EKG, currently free of any chest pain and the patient is off anticoagulation 10 single fever episode that has recovered Plan Patient has been given 1 dose of IV Lasix this morning for an episode of acute shortness of breath. He is diuresing well, he was briefly placed on BiPAP support for 2 or 3 hours, his breathing is somewhat better from this morning, however patient remains diffusely wheezy throughout the lung montano. We will increase the Solu-Medrol to 60 mg every 6 hours, we will add Pulmicort and Brovana. Continue DuoNeb [id number]. He Zosyn, patient did not have any febrile episodes in the last 24 hours. Urine and blood cultures remain negative , she denies any chest pain. We'll obtain a 12 EKG this morning, patient had nonsustained runs of VT last night. Cardiology is following. We will add 0.2 milligrams of Catapres today for better blood pressure control. We will transfer the patient to selective care unit for closer monitoring. Will continue to follow I performed a history & physical examination of the patient and discussed their management with my nurse practitioner, Funmi Lindsey. I reviewed the nurse practitioner's note and agree with the documented findings and plan of care. Lung sounds are positive for diffuse wheezes throughout the lung montano. The findings and the impression was discussed with the patient. I attest to the documentation by the nurse practitioner. Time with Patient: Less than 30
[2017-08-22] MEDS ORDERED: Magnesium Replacement Protocol 1 EACH MISC MISCELLANE PRN (13:26)
--- NOTE | 2017-08-22 14:00 | P.PN ---
Subjective Progress Note Date: 08/22/17 Mr. Barajas is being seen today in follow up for consultation regarding elevated troponins. Dr. Mayes saw him yesterday and determined the troponin leak was secondary to acute underlying illness and oxygen mismatch secondary to exacerbation of COPD. Past medical history significant for hypertension, COPD, diabetes mellitus, dyslipidemia, CVA and is legally blind. He quit smoking in 2012 and resides at [facility]. He is currently receiving IV antibiotics, IV steroids and this morning received one dose of IV lasix. This morning he was found to be in acute respiratory distress and was placed on Bipap. Chest xray was obtained at that time and revealed no acute cardiopulmonary process and no heart failure. Telemetry tracings were reviewed and show a 16-beat run of VT last night around 2024. He states he was asymptomatic during that time but he also seems confused this morning. Magnesium on admission noted to be 1.5. Blood pressure at the time of evaluation 154/81 heart rate 118 afebrile on BiPAP. Blood pressures have been fluctuating with systolic up to 210. Current cardiac medications include aspirin 325 mg daily, lisinopril 5 mg daily, metoprolol 25 mg twice a day. Objective - Vital Signs Vital signs: Vital Signs Temp 97.0 F L 08/22/17 06:37 Pulse 118 H 08/22/17 11:09 Resp 24 08/22/17 11:23 BP 210/101 08/22/17 10:45 Pulse Ox 97 08/22/17 10:45 Intake & Output 08/21/17 08/22/17 08/22/17 18:59 06:59 18:59 Intake Total 250 Balance 250 Weight 90 kg Intake: Oral 250 Other: Voiding Method Diaper Indwelling Catheter # Voids 1 3 - Exam GENERAL: In significant respiratory distress on BiPAP, confused and not tolerating the mask. NECK: Supple without JVD or thyromegaly. LUNGS: Diffuse infiltration x-ray wheezing with diminished air entry at the bases. No rales or rhonchi. HEART: Regular rate and rhythm without murmurs, rubs or gallops. S1 and S2 heard. EXTREMITIES: Normal range of motion, no edema. No clubbing or cyanosis. Peripheral pulses intact. - Labs CBC & Chem 7: 08/22/17 08:17 08/22/17 08:17 Labs: Abnormal Lab Results - Last 24 Hours (Table) 08/21/17 08/21/17 08/21/17 Range/Units 11:52 17:42 21:04 WBC (3.8-10.6) k/uL BUN (9-20) mg/dL Glucose (74-99) mg/dL POC Glucose (mg/dL) 256 H 164 H 132 H (75-99) mg/dL Urine Glucose (UA) (Negative) Urine Blood (Negative) 08/22/17 08/22/17 08/22/17 Range/Units 07:25 07:50 08:17 WBC 12.4 H (3.8-10.6) k/uL BUN (9-20) mg/dL Glucose (74-99) mg/dL POC Glucose (mg/dL) 232 H (75-99) mg/dL Urine Glucose (UA) Trace H (Negative) Urine Blood Trace H (Negative) 08/22/17 Range/Units 08:17 WBC (3.8-10.6) k/uL BUN 30 H (9-20) mg/dL Glucose 262 H (74-99) mg/dL POC Glucose (mg/dL) (75-99) mg/dL Urine Glucose (UA) (Negative) Urine Blood (Negative) Microbiology - Last 24 Hours (Table) 08/22/17 07:50 Urine Culture - Preliminary Urine,Catheterized 08/20/17 21:45 Blood Culture - Preliminary Blood No Growth after 24 hours 08/20/17 12:04 Blood Culture - Preliminary Blood No Growth after 24 hours Assessment and Plan Assessment: ASSESSMENT 1. Acute COPD exacerbation acquiring BiPAP 2. Hypertension, uncontrolled 3. Nonsustained ventricular tachycardia secondary to hypomagnesemia 4. Hypomagnesemia 5. Mild troponin leak with no acute EKG evidence of ischemia. Most likely secondary to oxygen supply mismatch. 6. Dyslipidemia 7. Diabetes mellitus PLAN Replace magnesium per protocol. Repeat magnesium in the a.m. Ongoing telemetry monitoring for acute arrhythmia. Change aspirin to 81 mg daily. Increase lisinopril to 10 mg daily. Continue with current medical management of acute respiratory failure secondary to COPD. Further recommendations to follow. Nurse Practitioner note has been reviewed, I agree with a documented findings and plan of care. Patient was seen and examined.
[2017-08-22] MEDS: MAGNESIUM SULFATE-D5W PMX 1 GM in DEXTROSE/WATER 1 100ML.BAG IVPB SCH ×2 (14:21→15:32)
[2017-08-22 16:43] LABS: Glucose,Whole Blood 269 mg/dL (75-99)
[2017-08-22] MEDS: BUDESONIDE 1 MG/2 ML NEBU INHALATION SCH (19:14)
[2017-08-22] MEDS: FORMOTEROL FUMARATE 20 MCG/2 ML NEBU INHALATION SCH (19:29)
[2017-08-22 20:54] LABS: Glucose,Whole Blood 233 mg/dL (75-99)
--- NOTE | 2017-08-22 22:08 | PN ---
PROGRESS NOTE DATE OF SERVICE: 08/22/2017 PRESENT COUGH: Short of breath. INTERVAL HISTORY: Patient initially admitted with right-sided pneumonia, septic picture, on antibiotics. Early this morning, I got a call. Patient went into respiratory distress. I did order a stat chest x-ray and patient given IV Lasix, after which he felt a bit better. Patient was transferred to [facility] care. It was reported that he possibly had some runs of nonsustained ventricular tach. The patient is a bit more short of breath. REVIEW OF SYSTEMS: Done for constitutional, cardiovascular, GI, pulmonary; relevant findings as above. CURRENT MEDICATIONS: Reviewed. 1. IV Zosyn. 2. IV Solu-Medrol does start was increased. 3. Aspirin. 4. Bronchodilators. EXAMINATION: Temperature 97, heart rate up to 113, 118, respirations 24, blood pressure 133/76 pulse ox 97% on 2L. GENERAL APPEARANCE: Currently lying in bed, tired-appearing. EYES: Bilateral cornea haziness. Conjunctivae normal. HEENT: External nose and ears normal. Oral cavity: Some missing teeth. NECK: JVD unable to assess. Mass not palpable. RESPIRATORY: Effort increased. LUNGS: Audible expiratory crackles. Decreased breath sounds. CARDIOVASCULAR: First and second sounds normal. No edema. ABDOMEN: Soft. Liver, spleen not palpable. PSYCHIATRY: Alert and oriented x3. Mood and affect normal. NEUROLOGICAL: Power on the right side is 4/5. INVESTIGATIONS: White count 12.4. Potassium 4.3. Accu-Cheks are noted. ASSESSMENT: 1. Possible right basal pneumonia, suspect organism causing sepsis, present on admission. 2. Acute chronic obstructive pulmonary disease exacerbation in an ex-smoker. 3. Diabetes mellitus type 2 on oral hypoglycemic. 4. Legally blind, can only light, from bilateral cataracts. 5. Essential hypertension. 6. Hyperlipidemia. 7. Chronic right-sided weakness from a prior stroke. 8. Double urine and stool incontinent, chronically uses a brief. 9. Medical debility. Patient at baseline needs help to be transferred. PLAN: Continue with nebulized bronchodilators. Will get a cardiology opinion. Overall prognosis is guarded. MMODL / IJN: [id number] /
[2017-08-23] MEDS: PIPERACILLIN-TAZOBACTAM 3.375 GM in DEXTROSE/WATER 1 50ML.BAG IVPB SCH ×3 (03:34→20:06)
[2017-08-23] MEDS: IPRATROPIUM-ALBUTEROL 3 ML NEB INHALATION PRN (03:51)
[2017-08-23] MEDS: PANTOPRAZOLE 40 MG TABLET PO SCH ×2 (06:00→12:12)
[2017-08-23] MEDS: methylPREDNISolone SOD SUCCI 125 MG/2 ML VIAL IV SCH ×3 (06:00→17:10)
[2017-08-23 06:13] LABS: Glucose,Whole Blood 168 mg/dL (75-99)
[2017-08-23] MEDS: INSULIN ASPART 100 UNIT/ML 1 ML 10 ML VIAL SQ SCH ×4 (06:29→22:02)
[2017-08-23 06:46] LABS: Mean Platelet Volume 7.3; Platelet Count 292 k/uL (150-450)
[2017-08-23] MEDS: BUDESONIDE 1 MG/2 ML NEBU INHALATION SCH ×2 (06:53→19:36)
[2017-08-23] MEDS: FORMOTEROL FUMARATE 20 MCG/2 ML NEBU INHALATION SCH ×2 (06:54→19:36)
[2017-08-23] MEDS: IPRATROPIUM-ALBUTEROL 3 ML NEB INHALATION SCH ×4 (06:54→19:36)
[2017-08-23 06:57] LABS: Calcium 8.4 mg/dL (8.4-10.2); Magnesium 2.2 mg/dL (1.6-2.3); Potassium 4.3 mmol/L (3.5-5.1)
[2017-08-23] MEDS: guaiFENesin 600 MG TABLET.ER PO SCH ×2 (09:08→20:06)
[2017-08-23] MEDS: ASPIRIN 81 MG PO SCH (09:08)
[2017-08-23] MEDS: LISINOPRIL 10 MG TAB PO SCH (09:09)
[2017-08-23] MEDS: METOPROLOL TARTRATE 25 MG TAB PO SCH ×2 (09:09→17:09)
[2017-08-23] MEDS: metFORMIN 500 MG TAB PO SCH ×2 (09:09→17:09)
[2017-08-23] MEDS: HEPARIN SODIUM,PORCINE 5,000 UNIT/ML 1 ML VIAL SQ SCH ×2 (09:12→17:10)
[2017-08-23 11:40] LABS: Glucose,Whole Blood 205 mg/dL (75-99)
--- NOTE | 2017-08-23 15:21 | P.PN ---
Subjective Progress Note Date: 08/23/17 Principal diagnosis: Shortness of breath Patient seen and examined on the telemetry unit. He was transferred up here from the fourth floor yesterday because of respiratory issues. His past medical history significant for hypertension, COPD, diabetes, hyperlipidemia, CVA, he is legally blind, quit smoking in 2012. Patient resides at [facility]. At the time of my examination today, patient had significant scattered coarse wheezing throughout. Blood pressure 168/80 with a heart rate in the 90s 100% on 2 L of oxygen. Sodium 141, potassium 4.3, BUN 35 , creatinine 1.2, magnesium 2.2. Objective - Vital Signs Vital signs: Vital Signs Temp 97.4 F L 08/23/17 11:10 Pulse 103 H 08/23/17 11:10 Resp 22 08/23/17 11:10 BP 169/81 08/23/17 11:10 Pulse Ox 100 08/23/17 11:10 Intake & Output 08/22/17 08/23/17 08/23/17 18:59 06:59 18:59 Intake Total 0 50 365 Output Total 1050 700 Balance -1050 -650 365 Weight 61 kg Intake: Oral 0 50 365 Output: Urine 1050 700 Other: Voiding Method Indwelling Catheter Indwelling Catheter Indwelling Catheter - Exam PHYSICAL EXAMINATION: HEENT: Head is atraumatic, normocephalic. Pupils equal, round. Neck is supple. There is no elevated jugular venous pressure. HEART EXAMINATION: Heart S1, S2 normal. No murmur or gallop heard. CHEST EXAMINATION: Lungs reveal scattered wheezing with decreased air exchange throughout. ABDOMEN: Soft, nontender. Bowel sounds are heard. No organomegaly noted. EXTREMITIES: 1+ peripheral pulses with no evidence of peripheral edema and no calf tenderness noted. NEUROLOGIC patient is awake, alert and oriented -3. . - Labs CBC & Chem 7: 08/23/17 06:01 08/23/17 06:01 Labs: Abnormal Lab Results - Last 24 Hours (Table) 08/22/17 08/22/17 08/23/17 Range/Units 16:38 20:53 06:01 BUN 35 H (9-20) mg/dL Creatinine 1.26 H (0.66-1.25) mg/dL Glucose 174 H (74-99) mg/dL POC Glucose (mg/dL) 269 H 233 H (75-99) mg/dL 08/23/17 08/23/17 Range/Units 06:13 11:37 BUN (9-20) mg/dL Creatinine (0.66-1.25) mg/dL Glucose (74-99) mg/dL POC Glucose (mg/dL) 168 H 205 H (75-99) mg/dL Microbiology - Last 24 Hours (Table) 08/20/17 12:04 Blood Culture - Preliminary Blood No Growth after 72 hours 08/22/17 07:50 Urine Culture - Final Urine,Catheterized 08/20/17 21:45 Blood Culture - Preliminary Blood No Growth after 48 hours Assessment and Plan Plan: Assessment and plan #1 acute exacerbation of COPD #2 hypertension #3 mild troponin abnormality, likely secondary to oxygen supply and demand mismatch. #4 hyperlipidemia # 5 diabetes Plan From cardiology's perspective, we'll recommend to continue current therapy. Patient shortness of breath secondary to COPD exacerbation. No overt congestive heart failure. We will follow with him with you on an as-needed basis only, please don't hesitate to call if you have any questions. DNP note has been reviewed, I agree with a documented findings and plan of care. Patient was seen and examined.
--- NOTE | 2017-08-23 16:39 | P.PN ---
Subjective Progress Note Date: 08/23/17 A 72-year-old male patient with known history of COPD was coming into the hospital after a few days of being discharged from the hospital for altered mentation and shortness of breath. Fact the patient had a similar presentation during which the patient was evaluated by our pulmonary services. He was found to be in acute COPD exacerbation and he was found to be acutely bronchospastic and wheezy. He also had a temperature spike of 101.0. He has been afebrile since. At that time the chest x-ray showed no acute abnormalities. The patient was treated with a combination of bronchodilators and steroids and he was discharged back to [facility] where he resides. He is very much debilitated. He is a poor historian. He gives simple answers by saying yes and no. 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 He is diabetic and also has problems with hypertension and hyperlipidemia. He has also been involved in a stroke in the past. The patient has no congested cough. He has not had any episodes of aspiration and a previous swallow evaluation was done showed no indication that the patient is an increased risk for aspiration. He denies having any chest pain. He is moving all 4 extremities and he can follow only simple commands. The patient is currently on a combination of bronchodilators and steroids. Troponin was minimally elevated and the patient was started also on IV heparin. I reviewed EKG and the patient has a right bundle branch block pattern that was also present on previous EKGs from previous hospitalization and this is not an obviously a new finding. His current echocardiogram showed no acute abnormalities and a chest x-ray is not showing any acute abnormalities. CAT scan of the head that was done on 08/11/2017 was also within normal limits. On 08/21/2017 the patient is looking better compared to yesterday. His last bronchus spastic and wheezy. He is tolerating his diet. No nausea. No vomiting. No emesis. No aspiration. He had only one spike of temperature of 10 1F and since then the patient has not spiked any temperature. He remains on a combination of Zosyn and vancomycin. This has been an empiric antibiotic coverage. No leukocytosis. Hemodynamically stable. He is a selective overflow who came in to the intensive care unit. Mentation is essentially the same, probably slightly more awake compared to yesterday and more interactive. He is on IV Solu-Medrol. He has developed some mild steroid-induced hyperglycemia for which is on a insulin by sliding scale coverage. Troponins were noted. Most recent troponin is at 0.02 and the patient was taken off IV heparin and he was provided subcu heparin. On 08/22/2017 patient seen in follow-up. This morning he went into respiratory distress, rapid response team was called, who administered 40 mg of Lasix, patient has already been on IV steroids, and IV Zosyn. Patient was then placed on BiPAP support with pressures 10 and 5, and 30%. Patient started diuresing, he put out close to 400 mL in the first few hours of Lasix administration. Chest x-ray did not show any acute findings. Patient remains afebrile, denies any chest pain. He became very hypertensive this morning, with SBP in the 200s , and DBP in the 100s. Patient is on metoprolol 25 mg twice a day, and lisinopril 5 mg once daily. Despite that, the patient remains hypertensive. Last night he was having runs of VT, with the longest one up to 13 beats, followed by shorter runs of 3-4 beats. Today he is in sinus rhythm, he is tachycardic with a heart rate up to 118 BPM. We will obtain a 12-lead EKG. Patient is not tolerating BiPAP mask very well, is very restless, he is very uncomfortable, and requested to take the BiPAP mask off. We will give him a trial of nasal cannula, and so far he is tolerating 5 L per nasal cannula well. His shortness of breath has improved, although she remains diffusely wheezy. We will add Pulmicort and Brovana, continue with IV Solu-Medrol, we will increase the dose to 60 mg every 6 hours. Continue with current antibiotic coverage. Patient will be given 0.2 mg of Catapres for blood pressure control. She will be transferred to selective care unit for closer monitoring. Cardiology is also following. On 08/23/2017 I'm seeing this patient for a follow-up. Clinically improved compared to yesterday. Less short of breath compared to yesterday. Less bronchospastic and wheezy. The patient is currently off BiPAP. He remains on a combination of steroids and antibiotics and bronchodilators. Note that he also received diuretics suspecting a component of pulmonary vascular congestion/ edema/aspiration. He is afebrile. He is not having any chest pain. He is not using accessory muscles of breathing and currently is on oxygen at room air with a pulse ox of 96%. No tachycardia. No major respiratory distress. No chest pain. Blood pressures under better control for now. Objective - Vital Signs Vital signs: Vital Signs Temp 97.4 F L 08/23/17 11:10 Pulse 66 08/23/17 16:00 Resp 16 08/23/17 16:00 BP 140/62 08/23/17 16:00 Pulse Ox 96 08/23/17 16:00 Intake & Output 08/22/17 08/23/17 08/23/17 18:59 06:59 18:59 Intake Total 0 50 605 Output Total 1050 700 Balance -1050 -650 605 Weight 61 kg Intake: Oral 0 50 605 Output: Urine 1050 700 Other: Voiding Method Indwelling Catheter Indwelling Catheter Indwelling Catheter - Exam Limitations: Legally blind with bilateral cataract and glaucoma physical limitation General appearance: 72-year-old white male, a mild degree of respiratory distress. Head exam: Atraumatic, normocephalic. Eye exam: Chronic opacification of both eyes noted. No icterus. Neck exam: No neck masses, no stridor. Moist mucous membranes noted. Respiratory exam: Diminished breath sounds at the bases, no crackles or rhonchi or wheezes. No chest wall tenderness. Symmetrical expansion noted. The patient had diffuse expiratory wheezes this is improved compared to yesterday and the patient is last bronchus spastic and wheezy compared to yesterday. Cardiac: Normal S1 and S2 no gallops, no murmur. GI/Abdominal exam: Obese, soft, nontender, no megaly, no rebound, positive bowel sounds. Extremities exam: No clubbing edema or cyanosis. Neurological exam: Awake, however the patient does follow simple commands. He does not verbalize long sentences and he answers yes and no. Psychiatric exam: Flat affect otherwise cannot be assessed. Skin exam: Present: normal color - Labs CBC & Chem 7: 08/23/17 06:01 08/23/17 06:01 Labs: Abnormal Lab Results - Last 24 Hours (Table) 08/22/17 08/22/1708/23/18 Range/Units 16:38 20:53 06:01 BUN 35 H (9-20) mg/dL Creatinine 1.26 H (0.66-1.25) mg/dL Glucose 174 H (74-99) mg/dL POC Glucose (mg/dL) 269 H 233 H (75-99) mg/dL 08/23/17 08/23/17 Range/Units 06:13 11:37 BUN (9-20) mg/dL Creatinine (0.66-1.25) mg/dL Glucose (74-99) mg/dL POC Glucose (mg/dL) 168 H 205 H (75-99) mg/dL Microbiology - Last 24 Hours (Table) 08/20/17 12:04 Blood Culture - Preliminary Blood No Growth after 72 hours 08/22/17 07:50 Urine Culture - Final Urine,Catheterized 08/20/17 21:45 Blood Culture - Preliminary Blood No Growth after 48 hours Assessment and Plan Plan: Assessment 1 acute COPD exacerbation with secondary shortness of breath. After initial improvement, the patient had worsening in decompensation is a status on yesterday's evaluation. Aspiration was suspected yet the patient has had a previous swallow evaluation that showed adequate swallow. The patient is currently being treated with the same which includes accommodation bronchodilators and steroids and antibiotics. He has been diuresed adequately. Chest x-ray showed no evidence of any volume overload or evolving pulmonary infiltrates or consolidation. Pulmonary status much more stable compared to yesterday and his oxygenation is also improved. 2 legally blind with bilateral glucoma's/cataracts 3 previous history of CVA 4 diabetes mellitus type 2 5 hypertension 6 hyperlipidemia 7 old T12 compression fracture of the spine along with spondylolisthesis 8 minimal troponin leak without any acute EKG abnormalities. The patient has a right bundle branch block pattern on his EKG, currently free of any chest pain and the patient is off anticoagulation 9 single fever episode that has recovered Plan Aspiration precautions. Feliberto keane last treatment [id number]. IV Solu- Medrol. Empiric antibiotic coverage with IV Zosyn. Repeat the chest x-ray in the morning. The echocardiogram was completed and the patient was found to have hypertensive heart disease with moderate concentric ventricular hypertrophy and an ejection fraction of 50-55%. Mild aortic stenosis. No other significant abnormalities otherwise noted. Patient is stable for now. He is currently on telemetry unit and is being monitored very closely. Repeat chest x-ray in a.m.
[2017-08-23 16:51] LABS: Glucose,Whole Blood 179 mg/dL (75-99)
[2017-08-23] MEDS: FUROSEMIDE 20 MG TAB PO SCH (19:58)
[2017-08-23 20:56] LABS: Glucose,Whole Blood 241 mg/dL (75-99)
--- NOTE | 2017-08-23 21:42 | PN ---
PROGRESS NOTE DATE OF SERVICE: 08/23/2017 PRESENTING COMPLAINT: Congested cough. INTERVAL HISTORY: Patient admitted with what is felt to be pneumonia, septic picture, and has remained afebrile since then. Patient got into a bout of shortness of breath and was diuresed. Patient less congested, but still has an expiratory congested cough, did tolerate some diet, lying in bed. REVIEW OF SYSTEMS: Done for constitutional, cardiovascular, GI, pulmonary; relevant findings as above. CURRENT MEDICATIONS: Reviewed that include: 1. IV Zosyn. 2. Nebulized bronchodilators. 3. IV Solu-Medrol. EXAMINATION: Afebrile, pulse 103, respiratory rate 22, blood pressure 169/81, pulse ox 100% on 2L. GENERAL APPEARANCE: Lying in bed, awake. EYES: Bilateral corneas hazy, conjunctivae normal. HEENT: External nose and ears normal. Oral cavity: Missing teeth. NECK: JVD not raised. Mass not palpable. RESPIRATORY: Effort increased. LUNGS: Decreased audible expiratory crackles. Decreased breath sounds CARDIOVASCULAR: First and second sounds normal. No edema. ABDOMEN: Soft, nontender. Liver and spleen not palpable. PSYCHIATRY: Alert and oriented x3. Mood and affect normal. Power on the right side is 4/5. INVESTIGATIONS: BUN 35, creatinine 1.26. Accu-Cheks are noted. ASSESSMENT: 1. Possible right basal pneumonia, suspect gram-negative organism causing sepsis, present on admission with clinical improvement. Patient may have an element of residual tracheitis with expiratory crackles. 2. Acute chronic obstructive pulmonary disease exacerbation in an ex-smoker, improving. 3. Diabetes mellitus type 2, on oral hypoglycemic. 4. Legally blind, can only perceive light, from bilateral cataracts. 5. Essential hypertension. 6. Hyperlipidemia. 7. 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 8. Double urine and stool incontinent, chronically use uses a brief. 9. Medical debility. Patient is at baseline, needs help to be transferred. PLAN: The fevers have been down. Will switch the patient to p.o. antibiotic, cut back on Solu-Medrol. Will keep a close eye on patient's renal function. MMODL / IJN: [id number] /
[2017-08-23] MEDS: AMOXIC-POT CLAV 875-125MG 1 EACH TAB PO SCH (22:02)
[2017-08-23] MEDS: methylPREDNISolone SOD SUCCI 40 MG/ML 1 ML VIAL IV SCH (23:03)
[2017-08-24 06:02] LABS: Glucose,Whole Blood 182 mg/dL (75-99)
[2017-08-24] MEDS: INSULIN ASPART 100 UNIT/ML 1 ML 10 ML VIAL SQ SCH ×4 (06:24→21:29)
[2017-08-24] MEDS: PANTOPRAZOLE 40 MG TABLET PO SCH ×2 (06:24→16:34)
[2017-08-24 07:25] LABS: Basophils % (A) 0 %; Eosinophils % (A) 0 %; HCT 38.7 % (39.0-53.0); HGB 12.7 gm/dL (13.0-17.5); Lymphocytes # (A) 0.8 k/uL (1.0-4.8); Lymphocytes % (A) 10 %; MCH 29.6 pg (25.0-35.0); MCHC 32.8 g/dL (31.0-37.0); MCV 90.2 fL (80.0-100.0); Mean Platelet Volume 7.7; Monocytes # (A) 0.7 k/uL (0-1.0); Monocytes % (A) 8 %; Neutrophils # (A) 7.1 k/uL (1.3-7.7); Neutrophils % (A) 80 %; Platelet Count 267 k/uL (150-450); RBC 4.29 m/uL (4.30-5.90); RDW 12.8 % (11.5-15.5); WBC 8.8 k/uL (3.8-10.6)
--- NOTE | 2017-08-24 07:26 | XR ---
EXAMINATION TYPE: XR chest 1V DATE OF EXAM: 08/24/2017 HISTORY: Shortness of breath. COMPARISON: 08/23/2015 TECHNIQUE: Single view of the chest is submitted. FINDINGS: Demonstrated are scattered senescent parenchymal change. There is no evidence for focal infiltrate. The heart is stable. Hilar and mediastinal structures are within normal limits. Degenerative changes are seen of the dorsal spine. IMPRESSION: 1. Chronic changes without evidence for acute pulmonary disease.
[2017-08-24 07:54] LABS: Calcium 8.7 mg/dL (8.4-10.2)
[2017-08-24] MEDS: AMOXIC-POT CLAV 875-125MG 1 EACH TAB PO SCH ×2 (08:39→19:44)
[2017-08-24] MEDS: ASPIRIN 81 MG PO SCH (08:39)
[2017-08-24] MEDS: ENOXAPARIN 40 MG/0.4 ML SYRINGE SQ SCH (08:40)
[2017-08-24] MEDS: guaiFENesin 600 MG TABLET.ER PO SCH ×2 (08:40→19:44)
[2017-08-24] MEDS: FUROSEMIDE 20 MG TAB PO SCH ×2 (08:40→16:34)
[2017-08-24] MEDS: metFORMIN 500 MG TAB PO SCH ×2 (08:41→16:34)
[2017-08-24] MEDS: LISINOPRIL 10 MG TAB PO SCH (08:41)
[2017-08-24] MEDS: METOPROLOL TARTRATE 25 MG TAB PO SCH ×2 (08:41→16:34)
[2017-08-24] MEDS: BUDESONIDE 1 MG/2 ML NEBU INHALATION SCH ×2 (08:51→20:32)
[2017-08-24] MEDS: IPRATROPIUM-ALBUTEROL 3 ML NEB INHALATION SCH ×4 (08:53→20:32)
[2017-08-24] MEDS: FORMOTEROL FUMARATE 20 MCG/2 ML NEBU INHALATION SCH ×2 (08:53→20:32)
[2017-08-24] MEDS: methylPREDNISolone SOD SUCCI 40 MG/ML 1 ML VIAL IV SCH ×2 (09:33→17:48)
[2017-08-24] MEDS ORDERED: ALPRAZolam 0.5 MG TAB PO STA (10:05)
[2017-08-24 11:48] LABS: Glucose,Whole Blood 134 mg/dL (75-99)
--- NOTE | 2017-08-24 16:01 | P.PN ---
Subjective Progress Note Date: 08/24/17 A 72-year-old male patient with known history of COPD was coming into the hospital after a few days of being discharged from the hospital for altered mentation and shortness of breath. Fact the patient had a similar presentation during which the patient was evaluated by our pulmonary services. He was found to be in acute COPD exacerbation and he was found to be acutely bronchospastic and wheezy. He also had a temperature spike of 101.0. He has been afebrile since. At that time the chest x-ray showed no acute abnormalities. The patient was treated with a combination of bronchodilators and steroids and he was discharged back to [facility] where he resides. He is very much debilitated. He is a poor historian. He gives simple answers by saying yes and no. 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 He is diabetic and also has problems with hypertension and hyperlipidemia. He has also been involved in a stroke in the past. The patient has no congested cough. He has not had any episodes of aspiration and a previous swallow evaluation was done showed no indication that the patient is an increased risk for aspiration. He denies having any chest pain. He is moving all 4 extremities and he can follow only simple commands. The patient is currently on a combination of bronchodilators and steroids. Troponin was minimally elevated and the patient was started also on IV heparin. I reviewed EKG and the patient has a right bundle branch block pattern that was also present on previous EKGs from previous hospitalization and this is not an obviously a new finding. His current echocardiogram showed no acute abnormalities and a chest x-ray is not showing any acute abnormalities. CAT scan of the head that was done on 08/11/2017 was also within normal limits. On 08/21/2017 the patient is looking better compared to yesterday. His last bronchus spastic and wheezy. He is tolerating his diet. No nausea. No vomiting. No emesis. No aspiration. He had only one spike of temperature of 10 1F and since then the patient has not spiked any temperature. He remains on a combination of Zosyn and vancomycin. This has been an empiric antibiotic coverage. No leukocytosis. Hemodynamically stable. He is a selective overflow who came in to the intensive care unit. Mentation is essentially the same, probably slightly more awake compared to yesterday and more interactive. He is on IV Solu-Medrol. He has developed some mild steroid-induced hyperglycemia for which is on a insulin by sliding scale coverage. Troponins were noted. Most recent troponin is at 0.02 and the patient was taken off IV heparin and he was provided subcu heparin. On 08/22/2017 patient seen in follow-up. This morning he went into respiratory distress, rapid response team was called, who administered 40 mg of Lasix, patient has already been on IV steroids, and IV Zosyn. Patient was then placed on BiPAP support with pressures 10 and 5, and 30%. Patient started diuresing, he put out close to 400 mL in the first few hours of Lasix administration. Chest x-ray did not show any acute findings. Patient remains afebrile, denies any chest pain. He became very hypertensive this morning, with SBP in the 200s , and DBP in the 100s. Patient is on metoprolol 25 mg twice a day, and lisinopril 5 mg once daily. Despite that, the patient remains hypertensive. Last night he was having runs of VT, with the longest one up to 13 beats, followed by shorter runs of 3-4 beats. Today he is in sinus rhythm, he is tachycardic with a heart rate up to 118 BPM. We will obtain a 12-lead EKG. Patient is not tolerating BiPAP mask very well, is very restless, he is very uncomfortable, and requested to take the BiPAP mask off. We will give him a trial of nasal cannula, and so far he is tolerating 5 L per nasal cannula well. His shortness of breath has improved, although she remains diffusely wheezy. We will add Pulmicort and Brovana, continue with IV Solu-Medrol, we will increase the dose to 60 mg every 6 hours. Continue with current antibiotic coverage. Patient will be given 0.2 mg of Catapres for blood pressure control. She will be transferred to selective care unit for closer monitoring. Cardiology is also following. On 08/23/2017 I'm seeing this patient for a follow-up. Clinically improved compared to yesterday. Less short of breath compared to yesterday. Less bronchospastic and wheezy. The patient is currently off BiPAP. He remains on a combination of steroids and antibiotics and bronchodilators. Note that he also received diuretics suspecting a component of pulmonary vascular congestion/ edema/aspiration. He is afebrile. He is not having any chest pain. He is not using accessory muscles of breathing and currently is on oxygen at room air with a pulse ox of 96%. No tachycardia. No major respiratory distress. No chest pain. Blood pressures under better control for now. On 08/24/2017, seeing this patient for a follow-up. Iron of the patient is using the BiPAP as the patient gets short of breath in relation to his acute COPD exacerbation. His chest x-ray remains free of any acute pulmonary infiltrates. There is no evidence of any edema or aspiration or pneumonia. Aspiration although distal suspected on clinical grounds yet the patient had a swallow evaluation that came back within normal limits. The patient is on a combination of bronchodilators and the patient is on the 1 of the breast units [id number], the patient is on a combination of budesonide nebulized treatments and Perforomist neb last 2 minutes twice a day, and the patient is on IV Solu Medrol 40 mg every 8 hours. The patient is tolerating diet. He is awake and interactive. Denies having any chest pain. No other significant events over the past 24 hours. Active issue remains his ongoing shortness of breath and bronchospasm and wheezing. Objective - Vital Signs Vital signs: Vital Signs Temp 98 F 08/24/17 11:20 Pulse 101 H 08/24/17 15:42 Resp 19 08/24/17 12:00 BP 163/97 08/24/17 11:20 Pulse Ox 97 08/24/17 11:20 Intake & Output 08/23/17 08/24/17 08/24/17 18:59 06:59 18:59 Intake Total 845 350 770 Output Total 650 Balance 195 350 770 Weight 63.5 kg Intake: Intake, IV Titration 50 Amount Piperacillin-Tazobactam 3 50 .375 gm In Dextrose/Water 1 50ml.bag @ 12.5 mls/hr IVPB Q8H [facility] Rx#: [id number] Oral 845 300 770 Output: Urine 650 Other: Voiding Method Indwelling Catheter Indwelling Catheter Indwelling Catheter - Exam Limitations: Legally blind with bilateral cataract and glaucoma physical limitation General appearance: 72-year-old white male, a mild degree of respiratory distress. Head exam: Atraumatic, normocephalic. Eye exam: Chronic opacification of both eyes noted. No icterus. Neck exam: No neck masses, no stridor. Moist mucous membranes noted. Respiratory exam: Diminished breath sounds at the bases, no crackles or rhonchi or wheezes. No chest wall tenderness. Symmetrical expansion noted. The patient had diffuse expiratory wheezes this is improved compared to yesterday and the patient is last bronchus spastic and wheezy compared to yesterday. Cardiac: Normal S1 and S2 no gallops, no murmur. GI/Abdominal exam: Obese, soft, nontender, no megaly, no rebound, positive bowel sounds. Extremities exam: No clubbing edema or cyanosis. Neurological exam: Awake, however the patient does follow simple commands. He does not verbalize long sentences and he answers yes and no. Psychiatric exam: Flat affect otherwise cannot be assessed. Skin exam: Present: normal color - Labs CBC & Chem 7: 08/24/17 06:13 08/24/17 06:13 Labs: Abnormal Lab Results - Last 24 Hours (Table) 08/23/17 08/23/17 08/24/17 Range/Units 16:49 20:54 05:59 RBC (4.30-5.90) m/uL Hgb (13.0-17.5) gm/dL Hct (39.0-53.0) % Lymphocytes # (1.0-4.8) k/uL BUN (9-20) mg/dL Glucose (74-99) mg/dL POC Glucose (mg/dL) 179 H 241 H 182 H (75-99) mg/dL 08/24/17 08/24/17 08/24/17 Range/Units 06:13 06:13 11:38 RBC 4.29 L (4.30-5.90) m/uL Hgb 12.7 L (13.0-17.5) gm/dL Hct 38.7 L (39.0-53.0) % Lymphocytes # 0.8 L (1.0-4.8) k/uL BUN 42 H (9-20) mg/dL Glucose 191 H (74-99) mg/dL POC Glucose (mg/dL) 134 H (75-99) mg/dL Microbiology - Last 24 Hours (Table) 08/20/17 12:04 Blood Culture - Preliminary Blood No Growth after 96 hours 08/20/17 21:45 Blood Culture - Preliminary Blood No Growth after 72 hours Assessment and Plan Plan: Assessment 1 acute COPD exacerbation with secondary shortness of breath. The patient continues to be bronchospastic and wheezy and short of breath. COPD remains active. Chest x-ray is free of any acute pulmonary infiltrates. No clinical or observed evidence of any aspiration. 2 legally blind with bilateral glucoma's/cataracts 3 previous history of CVA 4 diabetes mellitus type 2 5 hypertension 6 hyperlipidemia 7 old T12 compression fracture of the spine along with spondylolisthesis 8 minimal troponin leak without any acute EKG abnormalities. The patient has a right bundle branch block pattern on his EKG, currently free of any chest pain and the patient is off anticoagulation 9 single fever episode that has recovered Plan Aspiration precautions. Feliberto keane last treatment [id number]. IV Solu- Medrol. Empiric antibiotic coverage with IV Zosyn. May need to bring up the Solu-Medrol again to 60 mg every 6 hours. We'll continue to follow.
[2017-08-24] MEDS: methylPREDNISolone SOD SUCCI 125 MG/2 ML VIAL IV SCH (16:39)
[2017-08-24 16:47] LABS: Glucose,Whole Blood 211 mg/dL (75-99)
--- NOTE | 2017-08-24 18:46 | PN ---
PROGRESS NOTE DATE OF SERVICE: 08/24/2017. PRESENTING COMPLAINT: Short of breath. INTERVAL HISTORY: This is a patient admitted with a septic picture, pneumonia initially, and has become afebrile. Remains short of breath, occasionally congested. Requiring BiPAP today. Feeling tired. REVIEW OF SYSTEMS: Done for constitutional, cardiovascular, GI, pulmonary; relevant findings as above. CURRENT MEDICATIONS: Reviewed. They include: 1. IV Solu-Medrol 60 q.6. 2. DuoNeb. 3. Augmentin. PHYSICAL EXAMINATION: Temperature 98, pulse 101, respiration 19, blood pressure 163/97, pulse ox 97% on 5 L. GENERAL APPEARANCE: Lying in bed, tired-appearing. EYES: Bilateral corneas hazy. Conjunctivae normal. HEENT: External appearance of nose and ears normal. Oral cavity with missing teeth. NECK: JVD not raised. Mass not palpable. RESPIRATORY: Effort increased. LUNGS: Decreased breath sounds. Prolonged expiration. CARDIOVASCULAR: First and second sounds normal. No edema. ABDOMEN: Soft, nontender. Liver and spleen not palpable. PSYCHIATRY: Tired-appearing today. NEUROLOGICAL: Power on the right side is 4/5. INVESTIGATIONS: White count 8.8, hemoglobin 12.7, potassium 5, BUN 42, creatinine 1.11. Chest x-ray did not show anything acute. ASSESSMENT: 1. Right basal pneumonia; suspect Gram-negative organism causing sepsis, present on admission, with clinical improvement. Patient may have now tracheitis. 2. Acute chronic obstructive pulmonary disease exacerbation in an ex-smoker, slow to respond. 3. Diabetes mellitus, type 2, on oral hypoglycemic. 4. Legally blind; can only perceive light. 5. Essential hypertension. 6. Hyperlipidemia. 7. 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 8. Dual urine and stool incontinence; chronically uses briefs. 9. Medical debility. Patient at his baseline needs help to be transferred. Patient was switched to oral Augmentin. Pulmonary did increase patient's IV Solu- Medrol. Patient does look a bit more tired right now. Prognosis guarded. MMODL / IJN: [id number] /
[2017-08-24 20:52] LABS: Glucose,Whole Blood 215 mg/dL (75-99)
[2017-08-25] MEDS: methylPREDNISolone SOD SUCCI 125 MG/2 ML VIAL IV SCH ×5 (00:11→23:24)
[2017-08-25 06:05] LABS: Glucose,Whole Blood 181 mg/dL (75-99)
[2017-08-25] MEDS: PANTOPRAZOLE 40 MG TABLET PO SCH ×2 (06:28→17:14)
[2017-08-25] MEDS: INSULIN ASPART 100 UNIT/ML 1 ML 10 ML VIAL SQ SCH ×4 (06:28→21:12)
[2017-08-25 06:50] LABS: Calcium 8.5 mg/dL (8.4-10.2); Potassium 5.2 mmol/L (3.5-5.1)
[2017-08-25] MEDS: AMOXIC-POT CLAV 875-125MG 1 EACH TAB PO SCH ×2 (08:16→19:44)
[2017-08-25] MEDS: FUROSEMIDE 20 MG TAB PO SCH ×2 (08:17→17:14)
[2017-08-25] MEDS: guaiFENesin 600 MG TABLET.ER PO SCH ×2 (08:17→19:44)
[2017-08-25] MEDS: ENOXAPARIN 40 MG/0.4 ML SYRINGE SQ SCH (08:17)
[2017-08-25] MEDS: ASPIRIN 81 MG PO SCH (08:17)
[2017-08-25] MEDS: LISINOPRIL 10 MG TAB PO SCH (08:18)
[2017-08-25] MEDS: metFORMIN 500 MG TAB PO SCH ×2 (08:18→17:14)
[2017-08-25] MEDS: METOPROLOL TARTRATE 25 MG TAB PO SCH ×2 (08:18→17:14)
[2017-08-25] MEDS: BUDESONIDE 1 MG/2 ML NEBU INHALATION SCH ×2 (08:24→19:24)
[2017-08-25] MEDS: IPRATROPIUM-ALBUTEROL 3 ML NEB INHALATION SCH ×4 (08:24→19:24)
[2017-08-25] MEDS: FORMOTEROL FUMARATE 20 MCG/2 ML NEBU INHALATION SCH ×2 (08:24→19:24)
[2017-08-25 12:22] LABS: Glucose,Whole Blood 298 mg/dL (75-99)
--- NOTE | 2017-08-25 12:38 | P.PN ---
Subjective Progress Note Date: 08/25/17 Principal diagnosis: Acute exacerbation of chronic obstructive pulmonary disease. A 72-year-old male patient with known history of COPD was coming into the hospital after a few days of being discharged from the hospital for altered mentation and shortness of breath. Fact the patient had a similar presentation during which the patient was evaluated by our pulmonary services. He was found to be in acute COPD exacerbation and he was found to be acutely bronchospastic and wheezy. He also had a temperature spike of 101.0. He has been afebrile since. At that time the chest x-ray showed no acute abnormalities. The patient was treated with a combination of bronchodilators and steroids and he was discharged back to [facility] where he resides. He is very much debilitated. He is a poor historian. He gives simple answers by saying yes and no. 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 He is diabetic and also has problems with hypertension and hyperlipidemia. He has also been involved in a stroke in the past. The patient has no congested cough. He has not had any episodes of aspiration and a previous swallow evaluation was done showed no indication that the patient is an increased risk for aspiration. He denies having any chest pain. He is moving all 4 extremities and he can follow only simple commands. The patient is currently on a combination of bronchodilators and steroids. Troponin was minimally elevated and the patient was started also on IV heparin. I reviewed EKG and the patient has a right bundle branch block pattern that was also present on previous EKGs from previous hospitalization and this is not an obviously a new finding. His current echocardiogram showed no acute abnormalities and a chest x-ray is not showing any acute abnormalities. CAT scan of the head that was done on 08/11/2017 was also within normal limits. On 08/21/2017 the patient is looking better compared to yesterday. His last bronchus spastic and wheezy. He is tolerating his diet. No nausea. No vomiting. No emesis. No aspiration. He had only one spike of temperature of 10 1F and since then the patient has not spiked any temperature. He remains on a combination of Zosyn and vancomycin. This has been an empiric antibiotic coverage. No leukocytosis. Hemodynamically stable. He is a selective overflow who came in to the intensive care unit. Mentation is essentially the same, probably slightly more awake compared to yesterday and more interactive. He is on IV Solu-Medrol. He has developed some mild steroid-induced hyperglycemia for which is on a insulin by sliding scale coverage. Troponins were noted. Most recent troponin is at 0.02 and the patient was taken off IV heparin and he was provided subcu heparin. On 08/22/2017 patient seen in follow-up. This morning he went into respiratory distress, rapid response team was called, who administered 40 mg of Lasix, patient has already been on IV steroids, and IV Zosyn. Patient was then placed on BiPAP support with pressures 10 and 5, and 30%. Patient started diuresing, he put out close to 400 mL in the first few hours of Lasix administration. Chest x-ray did not show any acute findings. Patient remains afebrile, denies any chest pain. He became very hypertensive this morning, with SBP in the 200s , and DBP in the 100s. Patient is on metoprolol 25 mg twice a day, and lisinopril 5 mg once daily. Despite that, the patient remains hypertensive. Last night he was having runs of VT, with the longest one up to 13 beats, followed by shorter runs of 3-4 beats. Today he is in sinus rhythm, he is tachycardic with a heart rate up to 118 BPM. We will obtain a 12-lead EKG. Patient is not tolerating BiPAP mask very well, is very restless, he is very uncomfortable, and requested to take the BiPAP mask off. We will give him a trial of nasal cannula, and so far he is tolerating 5 L per nasal cannula well. His shortness of breath has improved, although she remains diffusely wheezy. We will add Pulmicort and Brovana, continue with IV Solu-Medrol, we will increase the dose to 60 mg every 6 hours. Continue with current antibiotic coverage. Patient will be given 0.2 mg of Catapres for blood pressure control. She will be transferred to selective care unit for closer monitoring. Cardiology is also following. On 08/23/2017 I'm seeing this patient for a follow-up. Clinically improved compared to yesterday. Less short of breath compared to yesterday. Less bronchospastic and wheezy. The patient is currently off BiPAP. He remains on a combination of steroids and antibiotics and bronchodilators. Note that he also received diuretics suspecting a component of pulmonary vascular congestion/ edema/aspiration. He is afebrile. He is not having any chest pain. He is not using accessory muscles of breathing and currently is on oxygen at room air with a pulse ox of 96%. No tachycardia. No major respiratory distress. No chest pain. Blood pressures under better control for now. On 08/24/2017, seeing this patient for a follow-up. Iron of the patient is using the BiPAP as the patient gets short of breath in relation to his acute COPD exacerbation. His chest x-ray remains free of any acute pulmonary infiltrates. There is no evidence of any edema or aspiration or pneumonia. Aspiration although distal suspected on clinical grounds yet the patient had a swallow evaluation that came back within normal limits. The patient is on a combination of bronchodilators and the patient is on the 1 of the breast units [id number], the patient is on a combination of budesonide nebulized treatments and Perforomist neb last 2 minutes twice a day, and the patient is on IV Solu Medrol 40 mg every 8 hours. The patient is tolerating diet. He is awake and interactive. Denies having any chest pain. No other significant events over the past 24 hours. Active issue remains his ongoing shortness of breath and bronchospasm and wheezing. The patient is seen again today August 25 2017 in follow-up on the selective care unit. He is currently resting quite comfortably in bed. He did not require the BiPAP last evening. He is currently maintaining good O2 saturations in the 90s on 2 L/m per nasal cannula. He states he is breathing easier today as compared to yesterday. Blood cultures reveal no growth to date. Urine culture reveals no growth. Creatinine 0.99. Objective - Vital Signs Vital signs: Vital Signs Temp 97.0 F L 08/25/17 08:05 Pulse 98 08/25/17 11:54 Resp 22 08/25/17 08:05 BP 195/96 08/25/17 08:05 Pulse Ox 100 08/25/17 08:05 Intake & Output 08/24/17 08/25/17 08/25/17 18:59 06:59 18:59 Intake Total 770 400 240 Output Total 2000 Balance 770 -1600 240 Weight 84 kg Intake: IV 160 0.9 @20ml/hr 160 Oral 770 240 240 Output: Urine 2000 Other: Voiding Method Indwelling Catheter Indwelling Catheter Indwelling Catheter - Exam GENERAL EXAM: Alert, active, comfortable in no apparent distress. HEAD: Normocephalic. EYES: Bilateral cataract/glaucoma with diminished vision. NOSE: Clear with pink turbinates. THROAT: No erythema or exudates. NECK: No masses, no JVD. CHEST: No chest wall deformity. LUNGS: Equal air entry with scattered. End expiratory wheeze. Diminished.. CVS: S1 and S2 normal with no audible murmur, regular rhythm. ABDOMEN: No hepatosplenomegaly, normal bowel sounds, no guarding or rigidity. SPINE: No scoliosis or deformity SKIN: No rashes CENTRAL NERVOUS SYSTEM: No focal deficits, tone is normal in all 4 extremities. EXTREMITIES: There is no peripheral edema. No clubbing, no cyanosis. Peripheral pulses are intact. - Labs CBC & Chem 7: 08/24/17 06:13 08/25/17 06:20 Labs: Abnormal Lab Results - Last 24 Hours (Table) 08/24/17 08/24/17 08/25/17 Range/Units 16:35 20:48 06:04 Potassium (3.5-5.1) mmol/L Carbon Dioxide (22-30) mmol/L BUN (9-20) mg/dL Glucose (74-99) mg/dL POC Glucose (mg/dL) 211 H 215 H 181 H (75-99) mg/dL 08/25/17 08/25/17 Range/Units 06:20 12:11 Potassium 5.2 H (3.5-5.1) mmol/L Carbon Dioxide 31 H (22-30) mmol/L BUN 46 H (9-20) mg/dL Glucose 194 H (74-99) mg/dL POC Glucose (mg/dL) 298 H (75-99) mg/dL Microbiology - Last 24 Hours (Table) 08/20/17 21:45 Blood Culture - Preliminary Blood No Growth after 96 hours 08/20/17 12:04 Blood Culture - Preliminary Blood No Growth after 96 hours Assessment and Plan Assessment: Assessment 1 acute COPD exacerbation with secondary shortness of breath. The patient continues to be bronchospastic and wheezy and short of breath. COPD remains active. Chest x-ray is free of any acute pulmonary infiltrates. No clinical or observed evidence of any aspiration. 2 legally blind with bilateral glucoma's/cataracts 3 previous history of CVA 4 diabetes mellitus type 2 5 hypertension 6 hyperlipidemia 7 old T12 compression fracture of the spine along with spondylolisthesis 8 minimal troponin leak without any acute EKG abnormalities. The patient has a right bundle branch block pattern on his EKG, currently free of any chest pain and the patient is off anticoagulation 9 single fever episode that has recovered Plan The patient was seen and evaluated by Dr. Milan. He is improved today as compared to yesterday. He did not require any BiPAP support last night. We'll continue with his current treatment plan including to another inhalations, Pulmicort inhalations, IV Solu-Medrol. He is on empiric antibiotics in the form of Zosyn. We'll increase his activity as tolerated. We'll continue to follow. I, the cosigning physician, performed a history & physical examination of the patient. Lungs sounds have faint end expiratory wheeze bilaterally. Diminished. Maintaining good O2 saturations in the 90s on 2 L/m per nasal cannula. I discussed the assessment and plan of care with my nurse practitioner , Tiffanie Ramirez. I attest to the above note as dictated by her.
[2017-08-25 17:18] LABS: Glucose,Whole Blood 149 mg/dL (75-99)
--- NOTE | 2017-08-25 18:20 | PN ---
PROGRESS NOTE DATE OF SERVICE: 08/25/17 PRESENTING COMPLAINT: Short of breath. INTERVAL HISTORY: The patient admitted initially with a septic picture, pneumonia, and has been requiring BiPAP. Doing a bit better this afternoon. Breathing is a bit better. Did tolerate some diet. Did have a bowel movement yesterday. Lying resting in bed. REVIEW OF SYSTEMS: Done for constitutional, cardiovascular, GI, pulmonary; relevant findings as above. CURRENT MEDICATIONS: Reviewed that include DuoNeb, Augmentin, and IV Solu-Medrol. PHYSICAL EXAMINATION: Temperature 98.1 pulse 90, respiratory 20, blood pressure 153/80. GENERAL APPEARANCE: Lying in bed, more comfortable today. EYES: Bilateral cornea, hazy conjunctivae normal. HEENT: External nose and ears normal. Oral cavity normal. NECK: JVD not raised. Mass not palpable. RESPIRATORY: Effort increased. Lungs decreased breath sounds. Prolonged expiration. Less wheezing today. CARDIOVASCULAR: First and second sounds, no edema. ABDOMEN: Soft, nontender. Liver and spleen not palpable. PSYCHIATRY: Awake, answering questions. NEUROLOGICAL: Power on the right side is 4/5. INVESTIGATIONS: Potassium 5.2. Accu-Cheks noted. ASSESSMENT: 1. Right basal pneumonia suspect gram-negative organism causing sepsis, present on admission, with clinical improvement. The patient now has some tracheitis which is improving. 2. Acute chronic obstructive pulmonary disease exacerbation in an ex-smoker, slow to respond. 3. Diabetes mellitus type 2 on oral hypoglycemic, uncontrolled with hyperglycemia. 4. Legally blind, can only perceive light. 5. Essential hypertension. 6. Hyperlipidemia. 7. 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 8. 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 9. Medical debility. Patient at baseline needs help to be transferred. PLAN: Continue patient on Augmentin, IV steroids, bronchodilators. The patient seems to be responding now. Follow. MMODL / IJN: [id number] /
[2017-08-25 20:39] LABS: Glucose,Whole Blood 216 mg/dL (75-99)
[2017-08-26 06:38] LABS: Glucose,Whole Blood 190 mg/dL (75-99)
[2017-08-26] MEDS: methylPREDNISolone SOD SUCCI 125 MG/2 ML VIAL IV SCH ×4 (06:51→23:15)
[2017-08-26] MEDS: INSULIN ASPART 100 UNIT/ML 1 ML 10 ML VIAL SQ SCH ×4 (06:51→21:30)
[2017-08-26] MEDS: PANTOPRAZOLE 40 MG TABLET PO SCH ×2 (06:51→12:34)
[2017-08-26 07:11] LABS: Calcium 8.7 mg/dL (8.4-10.2); Potassium 4.7 mmol/L (3.5-5.1)
[2017-08-26] MEDS: BUDESONIDE 1 MG/2 ML NEBU INHALATION SCH ×2 (08:20→19:36)
[2017-08-26] MEDS: IPRATROPIUM-ALBUTEROL 3 ML NEB INHALATION SCH ×4 (08:22→19:36)
[2017-08-26] MEDS: FORMOTEROL FUMARATE 20 MCG/2 ML NEBU INHALATION SCH ×2 (08:22→19:36)
[2017-08-26] MEDS: ENOXAPARIN 40 MG/0.4 ML SYRINGE SQ SCH (08:57)
[2017-08-26] MEDS: ASPIRIN 81 MG PO SCH (08:57)
[2017-08-26] MEDS: AMOXIC-POT CLAV 875-125MG 1 EACH TAB PO SCH ×2 (08:57→19:56)
[2017-08-26] MEDS: guaiFENesin 600 MG TABLET.ER PO SCH ×2 (08:58→19:56)
[2017-08-26] MEDS: FUROSEMIDE 20 MG TAB PO SCH ×2 (08:58→15:06)
[2017-08-26] MEDS: metFORMIN 500 MG TAB PO SCH ×2 (08:59→17:32)
[2017-08-26] MEDS: LISINOPRIL 10 MG TAB PO SCH (08:59)
[2017-08-26] MEDS: METOPROLOL TARTRATE 25 MG TAB PO SCH ×2 (08:59→17:32)
[2017-08-26 11:54] LABS: Glucose,Whole Blood 217 mg/dL (75-99)
--- NOTE | 2017-08-26 12:13 | P.PN ---
Subjective Progress Note Date: 08/26/17 A 72-year-old male patient with known history of COPD was coming into the hospital after a few days of being discharged from the hospital for altered mentation and shortness of breath. Fact the patient had a similar presentation during which the patient was evaluated by our pulmonary services. He was found to be in acute COPD exacerbation and he was found to be acutely bronchospastic and wheezy. He also had a temperature spike of 101.0. He has been afebrile since. At that time the chest x-ray showed no acute abnormalities. The patient was treated with a combination of bronchodilators and steroids and he was discharged back to [facility] where he resides. He is very much debilitated. He is a poor historian. He gives simple answers by saying yes and no. 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 He is diabetic and also has problems with hypertension and hyperlipidemia. He has also been involved in a stroke in the past. The patient has no congested cough. He has not had any episodes of aspiration and a previous swallow evaluation was done showed no indication that the patient is an increased risk for aspiration. He denies having any chest pain. He is moving all 4 extremities and he can follow only simple commands. The patient is currently on a combination of bronchodilators and steroids. Troponin was minimally elevated and the patient was started also on IV heparin. I reviewed EKG and the patient has a right bundle branch block pattern that was also present on previous EKGs from previous hospitalization and this is not an obviously a new finding. His current echocardiogram showed no acute abnormalities and a chest x-ray is not showing any acute abnormalities. CAT scan of the head that was done on 08/11/2017 was also within normal limits. On 08/21/2017 the patient is looking better compared to yesterday. His last bronchus spastic and wheezy. He is tolerating his diet. No nausea. No vomiting. No emesis. No aspiration. He had only one spike of temperature of 10 1F and since then the patient has not spiked any temperature. He remains on a combination of Zosyn and vancomycin. This has been an empiric antibiotic coverage. No leukocytosis. Hemodynamically stable. He is a selective overflow who came in to the intensive care unit. Mentation is essentially the same, probably slightly more awake compared to yesterday and more interactive. He is on IV Solu-Medrol. He has developed some mild steroid-induced hyperglycemia for which is on a insulin by sliding scale coverage. Troponins were noted. Most recent troponin is at 0.02 and the patient was taken off IV heparin and he was provided subcu heparin. On 08/22/2017 patient seen in follow-up. This morning he went into respiratory distress, rapid response team was called, who administered 40 mg of Lasix, patient has already been on IV steroids, and IV Zosyn. Patient was then placed on BiPAP support with pressures 10 and 5, and 30%. Patient started diuresing, he put out close to 400 mL in the first few hours of Lasix administration. Chest x-ray did not show any acute findings. Patient remains afebrile, denies any chest pain. He became very hypertensive this morning, with SBP in the 200s , and DBP in the 100s. Patient is on metoprolol 25 mg twice a day, and lisinopril 5 mg once daily. Despite that, the patient remains hypertensive. Last night he was having runs of VT, with the longest one up to 13 beats, followed by shorter runs of 3-4 beats. Today he is in sinus rhythm, he is tachycardic with a heart rate up to 118 BPM. We will obtain a 12-lead EKG. Patient is not tolerating BiPAP mask very well, is very restless, he is very uncomfortable, and requested to take the BiPAP mask off. We will give him a trial of nasal cannula, and so far he is tolerating 5 L per nasal cannula well. His shortness of breath has improved, although she remains diffusely wheezy. We will add Pulmicort and Brovana, continue with IV Solu-Medrol, we will increase the dose to 60 mg every 6 hours. Continue with current antibiotic coverage. Patient will be given 0.2 mg of Catapres for blood pressure control. She will be transferred to selective care unit for closer monitoring. Cardiology is also following. On 08/23/2017 I'm seeing this patient for a follow-up. Clinically improved compared to yesterday. Less short of breath compared to yesterday. Less bronchospastic and wheezy. The patient is currently off BiPAP. He remains on a combination of steroids and antibiotics and bronchodilators. Note that he also received diuretics suspecting a component of pulmonary vascular congestion/ edema/aspiration. He is afebrile. He is not having any chest pain. He is not using accessory muscles of breathing and currently is on oxygen at room air with a pulse ox of 96%. No tachycardia. No major respiratory distress. No chest pain. Blood pressures under better control for now. On 08/24/2017, seeing this patient for a follow-up. Iron of the patient is using the BiPAP as the patient gets short of breath in relation to his acute COPD exacerbation. His chest x-ray remains free of any acute pulmonary infiltrates. There is no evidence of any edema or aspiration or pneumonia. Aspiration although distal suspected on clinical grounds yet the patient had a swallow evaluation that came back within normal limits. The patient is on a combination of bronchodilators and the patient is on the 1 of the breast units [id number], the patient is on a combination of budesonide nebulized treatments and Perforomist neb last 2 minutes twice a day, and the patient is on IV Solu Medrol 40 mg every 8 hours. The patient is tolerating diet. He is awake and interactive. Denies having any chest pain. No other significant events over the past 24 hours. Active issue remains his ongoing shortness of breath and bronchospasm and wheezing. The patient is seen again today August 25 2017 in follow-up on the selective care unit. He is currently resting quite comfortably in bed. He did not require the BiPAP last evening. He is currently maintaining good O2 saturations in the 90s on 2 L/m per nasal cannula. He states he is breathing easier today as compared to yesterday. Blood cultures reveal no growth to date. Urine culture reveals no growth. Creatinine 0.99. On 08/26/2017 the patient is sitting up on a chair and the patient is very calm and comfortable less bronchospastic and wheezy compared to yesterday. He is much more comfortable in his breathing. He is remaining on a combination of bronchodilators and steroids. No aspiration. He is very well in his feeding habits and the patient has a good appetite. His communicating. He is interactive. Blood cultures of been negative. He was being treated for an acute COPD exacerbation was gradually improved. He is still on Lasix 20 mg by mouth twice a day. He is also on Augmentin 875 mg by mouth twice a day. He is on IV Solu Medrol 60 mg every 6 hours Objective - Vital Signs Vital signs: Vital Signs Temp 97.1 F L 08/26/17 08:00 Pulse 92 08/26/17 12:09 Resp 20 08/26/17 08:00 BP 194/91 08/26/17 08:00 Pulse Ox 94 L 08/26/17 08:23 Intake & Output 08/25/17 08/26/17 08/26/17 18:59 06:59 18:59 Intake Total 480 260 222 Output Total 1000 Balance -520 260 222 Weight 79.5 kg Intake: IV 160 0.9 @20ml/hr 160 Oral 480 100 222 Output: Urine 1000 Other: Voiding Method Indwelling Catheter Indwelling Catheter Indwelling Catheter - Exam Limitations: Legally blind with bilateral cataract and glaucoma physical limitation General appearance: 72-year-old white male, a mild degree of respiratory distress. Head exam: Atraumatic, normocephalic. Eye exam: Chronic opacification of both eyes noted. No icterus. Neck exam: No neck masses, no stridor. Moist mucous membranes noted. Respiratory exam: Diminished breath sounds at the bases, no crackles or rhonchi or wheezes. No chest wall tenderness. Symmetrical expansion noted. The patient had diffuse expiratory wheezes this is improved Cardiac: Normal S1 and S2 no gallops, no murmur. GI/Abdominal exam: Obese, soft, nontender, no megaly, no rebound, positive bowel sounds. Extremities exam: No clubbing edema or cyanosis. Neurological exam: Awake, however the patient does follow simple commands. He does not verbalize long sentences and he answers yes and no. Psychiatric exam: Flat affect otherwise cannot be assessed. Skin exam: Present: normal color - Labs CBC & Chem 7: 08/24/17 06:13 08/26/17 06:35 Labs: Abnormal Lab Results - Last 24 Hours (Table) 08/25/17 08/25/17 08/25/17 Range/Units 12:11 17:05 20:38 Carbon Dioxide (22-30) mmol/L BUN (9-20) mg/dL Glucose (74-99) mg/dL POC Glucose (mg/dL) 298 H 149 H 216 H (75-99) mg/dL 08/26/17 08/26/17 08/26/17 Range/Units 06:35 06:37 11:51 Carbon Dioxide 32 H (22-30) mmol/L BUN 44 H (9-20) mg/dL Glucose 222 H (74-99) mg/dL POC Glucose (mg/dL) 190 H 217 H (75-99) mg/dL Microbiology - Last 24 Hours (Table) 08/20/17 21:45 Blood Culture - Preliminary Blood No Growth after 120 hours 08/20/17 12:04 Blood Culture - Preliminary Blood No Growth after 120 hours Assessment and Plan Plan: Assessment 1 acute COPD exacerbation with secondary shortness of breath, improving 2 legally blind with bilateral glucoma's/cataracts 3 previous history of CVA 4 diabetes mellitus type 2 5 hypertension 6 hyperlipidemia 7 old T12 compression fracture of the spine along with spondylolisthesis 8 minimal troponin leak without any acute EKG abnormalities. The patient has a right bundle branch block pattern on his EKG, currently free of any chest pain and the patient is off anticoagulation 9 single fever episode that has recovered Plan Aspiration precautions. DuAj neb last treatment [id number]. IV Solu- Medrol at a high dose of 60 mg every 6 hours especially with his severe COPD exacerbation that has been a recurrent problem. Aspiration precaution. Oral Augmentin. Possible steroid taper and prednisone burst taper within next 24 hours. Monitor the blood sugar. We'll continue to follow. Clinically much improved and he is more interactive and stable.
[2017-08-26 17:09] LABS: Glucose,Whole Blood 227 mg/dL (75-99)
[2017-08-26 21:29] LABS: Glucose,Whole Blood 201 mg/dL (75-99)
[2017-08-27 06:04] LABS: Calcium 8.5 mg/dL (8.4-10.2); Potassium 4.8 mmol/L (3.5-5.1)
[2017-08-27 06:38] LABS: Glucose,Whole Blood 214 mg/dL (75-99)
[2017-08-27] MEDS: PANTOPRAZOLE 40 MG TABLET PO SCH ×2 (06:47→12:46)
[2017-08-27] MEDS: INSULIN ASPART 100 UNIT/ML 1 ML 10 ML VIAL SQ SCH ×4 (06:47→20:53)
[2017-08-27] MEDS: IPRATROPIUM-ALBUTEROL 3 ML NEB INHALATION SCH ×4 (06:49→20:56)
[2017-08-27] MEDS: FORMOTEROL FUMARATE 20 MCG/2 ML NEBU INHALATION SCH ×2 (06:49→21:17)
[2017-08-27] MEDS: BUDESONIDE 1 MG/2 ML NEBU INHALATION SCH ×2 (06:49→20:56)
[2017-08-27] MEDS: AMOXIC-POT CLAV 875-125MG 1 EACH TAB PO SCH ×2 (08:48→19:41)
[2017-08-27] MEDS: FUROSEMIDE 20 MG TAB PO SCH ×2 (08:48→17:12)
[2017-08-27] MEDS: methylPREDNISolone SOD SUCCI 40 MG/ML 1 ML VIAL IV SCH ×3 (08:48→23:22)
[2017-08-27] MEDS: ASPIRIN 81 MG PO SCH (08:48)
[2017-08-27] MEDS: ENOXAPARIN 40 MG/0.4 ML SYRINGE SQ SCH (08:48)
[2017-08-27] MEDS: guaiFENesin 600 MG TABLET.ER PO SCH ×2 (08:49→19:41)
[2017-08-27] MEDS: METOPROLOL TARTRATE 25 MG TAB PO SCH ×2 (08:49→17:12)
[2017-08-27] MEDS: LISINOPRIL 10 MG TAB PO SCH (08:49)
[2017-08-27] MEDS: metFORMIN 500 MG TAB PO SCH ×2 (08:49→17:12)
--- NOTE | 2017-08-27 11:14 | P.PN ---
Subjective Progress Note Date: 08/27/17 Principal diagnosis: Acute exacerbation of chronic obstructive pulmonary disease. A 72-year-old male patient with known history of COPD was coming into the hospital after a few days of being discharged from the hospital for altered mentation and shortness of breath. Fact the patient had a similar presentation during which the patient was evaluated by our pulmonary services. He was found to be in acute COPD exacerbation and he was found to be acutely bronchospastic and wheezy. He also had a temperature spike of 101.0. He has been afebrile since. At that time the chest x-ray showed no acute abnormalities. The patient was treated with a combination of bronchodilators and steroids and he was discharged back to [facility] where he resides. He is very much debilitated. He is a poor historian. He gives simple answers by saying yes and no. 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 He is diabetic and also has problems with hypertension and hyperlipidemia. He has also been involved in a stroke in the past. The patient has no congested cough. He has not had any episodes of aspiration and a previous swallow evaluation was done showed no indication that the patient is an increased risk for aspiration. He denies having any chest pain. He is moving all 4 extremities and he can follow only simple commands. The patient is currently on a combination of bronchodilators and steroids. Troponin was minimally elevated and the patient was started also on IV heparin. I reviewed EKG and the patient has a right bundle branch block pattern that was also present on previous EKGs from previous hospitalization and this is not an obviously a new finding. His current echocardiogram showed no acute abnormalities and a chest x-ray is not showing any acute abnormalities. CAT scan of the head that was done on 08/11/2017 was also within normal limits. On 08/21/2017 the patient is looking better compared to yesterday. His last bronchus spastic and wheezy. He is tolerating his diet. No nausea. No vomiting. No emesis. No aspiration. He had only one spike of temperature of 10 1F and since then the patient has not spiked any temperature. He remains on a combination of Zosyn and vancomycin. This has been an empiric antibiotic coverage. No leukocytosis. Hemodynamically stable. He is a selective overflow who came in to the intensive care unit. Mentation is essentially the same, probably slightly more awake compared to yesterday and more interactive. He is on IV Solu-Medrol. He has developed some mild steroid-induced hyperglycemia for which is on a insulin by sliding scale coverage. Troponins were noted. Most recent troponin is at 0.02 and the patient was taken off IV heparin and he was provided subcu heparin. On 08/22/2017 patient seen in follow-up. This morning he went into respiratory distress, rapid response team was called, who administered 40 mg of Lasix, patient has already been on IV steroids, and IV Zosyn. Patient was then placed on BiPAP support with pressures 10 and 5, and 30%. Patient started diuresing, he put out close to 400 mL in the first few hours of Lasix administration. Chest x-ray did not show any acute findings. Patient remains afebrile, denies any chest pain. He became very hypertensive this morning, with SBP in the 200s , and DBP in the 100s. Patient is on metoprolol 25 mg twice a day, and lisinopril 5 mg once daily. Despite that, the patient remains hypertensive. Last night he was having runs of VT, with the longest one up to 13 beats, followed by shorter runs of 3-4 beats. Today he is in sinus rhythm, he is tachycardic with a heart rate up to 118 BPM. We will obtain a 12-lead EKG. Patient is not tolerating BiPAP mask very well, is very restless, he is very uncomfortable, and requested to take the BiPAP mask off. We will give him a trial of nasal cannula, and so far he is tolerating 5 L per nasal cannula well. His shortness of breath has improved, although she remains diffusely wheezy. We will add Pulmicort and Brovana, continue with IV Solu-Medrol, we will increase the dose to 60 mg every 6 hours. Continue with current antibiotic coverage. Patient will be given 0.2 mg of Catapres for blood pressure control. She will be transferred to selective care unit for closer monitoring. Cardiology is also following. On 08/23/2017 I'm seeing this patient for a follow-up. Clinically improved compared to yesterday. Less short of breath compared to yesterday. Less bronchospastic and wheezy. The patient is currently off BiPAP. He remains on a combination of steroids and antibiotics and bronchodilators. Note that he also received diuretics suspecting a component of pulmonary vascular congestion/ edema/aspiration. He is afebrile. He is not having any chest pain. He is not using accessory muscles of breathing and currently is on oxygen at room air with a pulse ox of 96%. No tachycardia. No major respiratory distress. No chest pain. Blood pressures under better control for now. On 08/24/2017, seeing this patient for a follow-up. Iron of the patient is using the BiPAP as the patient gets short of breath in relation to his acute COPD exacerbation. His chest x-ray remains free of any acute pulmonary infiltrates. There is no evidence of any edema or aspiration or pneumonia. Aspiration although distal suspected on clinical grounds yet the patient had a swallow evaluation that came back within normal limits. The patient is on a combination of bronchodilators and the patient is on the 1 of the breast units [id number], the patient is on a combination of budesonide nebulized treatments and Perforomist neb last 2 minutes twice a day, and the patient is on IV Solu Medrol 40 mg every 8 hours. The patient is tolerating diet. He is awake and interactive. Denies having any chest pain. No other significant events over the past 24 hours. Active issue remains his ongoing shortness of breath and bronchospasm and wheezing. The patient is seen again today August 25 2017 in follow-up on the selective care unit. He is currently resting quite comfortably in bed. He did not require the BiPAP last evening. He is currently maintaining good O2 saturations in the 90s on 2 L/m per nasal cannula. He states he is breathing easier today as compared to yesterday. Blood cultures reveal no growth to date. Urine culture reveals no growth. Creatinine 0.99. On 08/26/2017 the patient is sitting up on a chair and the patient is very calm and comfortable less bronchospastic and wheezy compared to yesterday. He is much more comfortable in his breathing. He is remaining on a combination of bronchodilators and steroids. No aspiration. He is very well in his feeding habits and the patient has a good appetite. His communicating. He is interactive. Blood cultures of been negative. He was being treated for an acute COPD exacerbation was gradually improved. He is still on Lasix 20 mg by mouth twice a day. He is also on Augmentin 875 mg by mouth twice a day. He is on IV Solu Medrol 60 mg every 6 hours. The patient is seen again today 08/27/2017 in follow-up on the selective care unit. He is awake and alert in no acute distress. He states he is breathing easier today as compared to yesterday. He states he did not wear the BiPAP last evening. Currently maintaining good O2 saturations in the 90s on room air. His been afebrile. Hemodynamically stable. Blood and urine cultures reveal no growth. Creatinine 1.02. Objective - Vital Signs Vital signs: Vital Signs Temp 97 F L 08/27/17 08:00 Pulse 106 H 08/27/17 08:00 Resp 16 08/27/17 08:00 BP 152/72 08/27/17 08:00 Pulse Ox 93 L 08/27/17 08:00 Intake & Output 08/26/17 08/27/17 08/27/17 18:59 06:59 18:59 Intake Total 444 120 360 Output Total 1500 Balance -1056 120 360 Weight 79 kg Intake: Oral 444 120 360 Output: Urine 1500 Other: Voiding Method Indwelling Catheter Indwelling Catheter Indwelling Catheter # Bowel Movements 0 - Exam GENERAL EXAM: Alert, active, comfortable in no apparent distress. HEAD: Normocephalic. EYES: Bilateral cataract/glaucoma with diminished vision. NOSE: Clear with pink turbinates. THROAT: No erythema or exudates. NECK: No masses, no JVD. CHEST: No chest wall deformity. LUNGS: Equal air entry with scattered. End expiratory wheeze. Diminished.. CVS: S1 and S2 normal with no audible murmur, regular rhythm. ABDOMEN: No hepatosplenomegaly, normal bowel sounds, no guarding or rigidity. SPINE: No scoliosis or deformity SKIN: No rashes CENTRAL NERVOUS SYSTEM: No focal deficits, tone is normal in all 4 extremities. EXTREMITIES: There is no peripheral edema. No clubbing, no cyanosis. Peripheral pulses are intact. - Labs CBC & Chem 7: 08/24/17 06:13 08/27/17 05:28 Labs: Abnormal Lab Results - Last 24 Hours (Table) 08/26/17 08/26/17 08/26/17 Range/Units 11:51 16:59 21:24 Chloride (98-107) mmol/L Carbon Dioxide (22-30) mmol/L BUN (9-20) mg/dL Glucose (74-99) mg/dL POC Glucose (mg/dL) 217 H 227 H 201 H (75-99) mg/dL 08/27/17 08/27/17 Range/Units 05:28 06:29 Chloride 96 L (98-107) mmol/L Carbon Dioxide 32 H (22-30) mmol/L BUN 45 H (9-20) mg/dL Glucose 217 H (74-99) mg/dL POC Glucose (mg/dL) 214 H (75-99) mg/dL Microbiology - Last 24 Hours (Table) 08/20/17 21:45 Blood Culture - Final Blood No Growth after 144 hours 08/20/17 12:04 Blood Culture - Final Blood No Growth after 144 hours Assessment and Plan Assessment: Assessment 1 acute COPD exacerbation with secondary shortness of breath. Improved. Chest x-ray is free of any acute pulmonary infiltrates. No clinical or observed evidence of any aspiration. 2 legally blind with bilateral glucoma's/cataracts 3 previous history of CVA 4 diabetes mellitus type 2 5 hypertension 6 hyperlipidemia 7 old T12 compression fracture of the spine along with spondylolisthesis 8 minimal troponin leak without any acute EKG abnormalities. The patient has a right bundle branch block pattern on his EKG, currently free of any chest pain and the patient is off anticoagulation 9 single fever episode that has recovered Plan The patient was seen and evaluated by Dr. Sinha. We'll continue with his current treatment plan including DuoNeb inhalations, Pulmicort inhalations, IV Solu-Medrol. He is on empiric antibiotics in the form of Augmentin. We'll increase his activity as tolerated. Convert to oral prednisone prior to discharge. We'll continue to follow. I, the cosigning physician, performed a history & physical examination of the patient. Lungs sounds have faint end expiratory wheeze bilaterally. Diminished. Maintaining good O2 saturations in the 90s on room air. I discussed the assessment and plan of care with my nurse practitioner, Tiffanie Ramirze. I attest to the above note as dictated by her.
[2017-08-27 11:44] LABS: Glucose,Whole Blood 194 mg/dL (75-99)
[2017-08-27 12:09] VITALS: RESP 18
[2017-08-27 16:58] LABS: Glucose,Whole Blood 116 mg/dL (75-99)
--- NOTE | 2017-08-27 19:55 | PN ---
PROGRESS NOTE DATE OF SERVICE: 08/26/2017. PRESENTING COMPLAINT: Short of breath.. INTERVAL HISTORY: I could not find my note from yesterday transcribed, so I am doing it again. This patient was admitted with a septic picture, pneumonia. He had been on BiPAP, which is now taken off. He looks better. Did increase his oral intake. Lying comfortably in bed. REVIEW OF SYSTEMS: Done for constitutional, cardiovascular, GI, pulmonary; relevant findings as above. CURRENT MEDICATIONS: Reviewed. They include: 1. DuoNeb. 2. Augmentin. 3. IV Solu-Medrol. PHYSICAL EXAMINATION: Temperature 98.2, pulse 54, respiration 22, blood pressure 145/86, pulse ox 97% on room air. GENERAL APPEARANCE: Propped up in bed, appearing more rested today. EYES: Bilateral corneas are hazy, conjunctivae normal. HEENT: External appearance of nose and ears normal. Oral cavity normal. NECK: JVD not raised. Mass not palpable. RESPIRATORY: Effort increased. LUNGS: Decreased breath sounds. Prolonged expiration. CARDIOVASCULAR: First and second sounds normal. No edema. ABDOMEN: Soft, nontender. Liver and spleen not palpable. PSYCHIATRY: Awake. Answering questions appropriately. NEUROLOGICAL: Weakness on the right side 4/5. INVESTIGATIONS: Potassium 4.7. BUN 44, creatinine 1.01. Accu-Cheks are noted. ASSESSMENT: 1. Right basilar pneumonia; suspect Gram-negative organism causing sepsis, present on admission, with significant clinical improvement. Subsequently patient had tracheitis, which is also improving. 2. Acute chronic obstructive pulmonary disease exacerbation in an ex-smoker, improving. 3. Diabetes mellitus, on oral hypoglycemic, uncontrolled with hyperglycemia. 4. Legally blind; can only perceive light. 5. Essential hypertension. 6. Hyperlipidemia. 7. 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 8. Dual urine stool incontinence; chronically uses briefs. 9. Medical debility; at baseline needs help to be transferred. PLAN: Continue with current medication and treatment. We will cut back on Solu-Medrol to 40 q.8. Follow with Pulmonary. MMODL / ERIKN: [id number] /
--- NOTE | 2017-08-27 20:01 | PN ---
PROGRESS NOTE DATE OF SERVICE: 08/27/2017 PRESENTING COMPLAINT: Short of breath. INTERVAL HISTORY: Patient was admitted with pneumonia, sepsis; feeling much better today. Breathing has greatly improved. Tolerating a diet. Lying in bed comfortably. REVIEW OF SYSTEMS: Done for constitutional, cardiovascular, GI, pulmonary; relevant findings as above. CURRENT MEDICATIONS: Reviewed. They include IV Solu-Medrol 40 q.8. PHYSICAL EXAMINATION: Temperature 97, pulse 106, respiration 16, blood pressure 152/72, pulse ox 93% on room air. GENERAL APPEARANCE: Lying in bed. Far more comfortable. EYES: Bilateral corneas hazy. Conjunctivae normal. NECK: JVD not raised. Mass not palpable. HEENT: External appearance of nose and ears normal. Oral cavity normal. RESPIRATORY: Effort normal. LUNGS: Decreased breath sounds. CARDIOVASCULAR: First and second sounds normal. No edema. ABDOMEN: Soft, nontender. Liver and spleen not palpable. PSYCHIATRY: Awake. Answering questions appropriately. INVESTIGATIONS: Potassium 4.8, bicarb 32. ASSESSMENT: 1. Right basilar pneumonia; suspect Gram-negative organism causing sepsis, present on admission, with significant improvement. Patient also had tracheitis. 2. Acute chronic obstructive pulmonary disease exacerbation an ex-smoker, improving. 3. Diabetes mellitus, type 2, on oral hypoglycemic, uncontrolled with hyperglycemia from steroids. 4. Legally blind; can only perceive light. 5. Essential hypertension. 6. Hyperlipidemia. 7. 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 8. Dual urine and stool incontinence; chronically uses briefs. 9. Medical debility. Patient at baseline needs help to be transferred. PLAN: Doing well. I am hoping patient can be switched over to p.o. steroids tomorrow and hopefully can be discharged. MMODL / IJN: [id number] /
[2017-08-27 20:44] LABS: Glucose,Whole Blood 237 mg/dL (75-99)
[2017-08-28 06:20] LABS: Glucose,Whole Blood 215 mg/dL (75-99)
[2017-08-28] MEDS: PANTOPRAZOLE 40 MG TABLET PO SCH ×2 (06:34→13:01)
[2017-08-28] MEDS: INSULIN ASPART 100 UNIT/ML 1 ML 10 ML VIAL SQ SCH ×4 (06:34→21:32)
[2017-08-28] MEDS: IPRATROPIUM-ALBUTEROL 3 ML NEB INHALATION SCH ×4 (06:57→19:43)
[2017-08-28] MEDS: FORMOTEROL FUMARATE 20 MCG/2 ML NEBU INHALATION SCH ×2 (06:57→19:43)
[2017-08-28] MEDS: BUDESONIDE 1 MG/2 ML NEBU INHALATION SCH ×2 (06:57→19:43)
[2017-08-28] MEDS: methylPREDNISolone SOD SUCCI 40 MG/ML 1 ML VIAL IV SCH (09:10)
[2017-08-28] MEDS: FUROSEMIDE 20 MG TAB PO SCH ×2 (09:11→17:44)
[2017-08-28] MEDS: ENOXAPARIN 40 MG/0.4 ML SYRINGE SQ SCH (09:11)
[2017-08-28] MEDS: AMOXIC-POT CLAV 875-125MG 1 EACH TAB PO SCH ×2 (09:11→21:29)
[2017-08-28] MEDS: ASPIRIN 81 MG PO SCH (09:11)
[2017-08-28] MEDS: guaiFENesin 600 MG TABLET.ER PO SCH ×2 (09:12→21:29)
[2017-08-28] MEDS: LISINOPRIL 10 MG TAB PO SCH (09:12)
[2017-08-28] MEDS: metFORMIN 500 MG TAB PO SCH ×2 (09:12→17:45)
[2017-08-28] MEDS: predniSONE 20 MG TAB PO SCH (09:13)
[2017-08-28] MEDS: METOPROLOL TARTRATE 25 MG TAB PO SCH ×2 (09:13→17:45)
[2017-08-28 11:08] VITALS: BMI 31.6
[2017-08-28 11:59] LABS: Glucose,Whole Blood 186 mg/dL (75-99)
--- NOTE | 2017-08-28 15:40 | P.PN ---
Subjective Progress Note Date: 08/28/17 Principal diagnosis: Acute exacerbation of chronic obstructive pulmonary disease. A 72-year-old male patient with known history of COPD was coming into the hospital after a few days of being discharged from the hospital for altered mentation and shortness of breath. Fact the patient had a similar presentation during which the patient was evaluated by our pulmonary services. He was found to be in acute COPD exacerbation and he was found to be acutely bronchospastic and wheezy. He also had a temperature spike of 101.0. He has been afebrile since. At that time the chest x-ray showed no acute abnormalities. The patient was treated with a combination of bronchodilators and steroids and he was discharged back to [facility] where he resides. He is very much debilitated. He is a poor historian. He gives simple answers by saying yes and no. 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 He is diabetic and also has problems with hypertension and hyperlipidemia. He has also been involved in a stroke in the past. The patient has no congested cough. He has not had any episodes of aspiration and a previous swallow evaluation was done showed no indication that the patient is an increased risk for aspiration. He denies having any chest pain. He is moving all 4 extremities and he can follow only simple commands. The patient is currently on a combination of bronchodilators and steroids. Troponin was minimally elevated and the patient was started also on IV heparin. I reviewed EKG and the patient has a right bundle branch block pattern that was also present on previous EKGs from previous hospitalization and this is not an obviously a new finding. His current echocardiogram showed no acute abnormalities and a chest x-ray is not showing any acute abnormalities. CAT scan of the head that was done on 08/11/2017 was also within normal limits. On 08/21/2017 the patient is looking better compared to yesterday. His last bronchus spastic and wheezy. He is tolerating his diet. No nausea. No vomiting. No emesis. No aspiration. He had only one spike of temperature of 10 1F and since then the patient has not spiked any temperature. He remains on a combination of Zosyn and vancomycin. This has been an empiric antibiotic coverage. No leukocytosis. Hemodynamically stable. He is a selective overflow who came in to the intensive care unit. Mentation is essentially the same, probably slightly more awake compared to yesterday and more interactive. He is on IV Solu-Medrol. He has developed some mild steroid-induced hyperglycemia for which is on a insulin by sliding scale coverage. Troponins were noted. Most recent troponin is at 0.02 and the patient was taken off IV heparin and he was provided subcu heparin. On 08/22/2017 patient seen in follow-up. This morning he went into respiratory distress, rapid response team was called, who administered 40 mg of Lasix, patient has already been on IV steroids, and IV Zosyn. Patient was then placed on BiPAP support with pressures 10 and 5, and 30%. Patient started diuresing, he put out close to 400 mL in the first few hours of Lasix administration. Chest x-ray did not show any acute findings. Patient remains afebrile, denies any chest pain. He became very hypertensive this morning, with SBP in the 200s , and DBP in the 100s. Patient is on metoprolol 25 mg twice a day, and lisinopril 5 mg once daily. Despite that, the patient remains hypertensive. Last night he was having runs of VT, with the longest one up to 13 beats, followed by shorter runs of 3-4 beats. Today he is in sinus rhythm, he is tachycardic with a heart rate up to 118 BPM. We will obtain a 12-lead EKG. Patient is not tolerating BiPAP mask very well, is very restless, he is very uncomfortable, and requested to take the BiPAP mask off. We will give him a trial of nasal cannula, and so far he is tolerating 5 L per nasal cannula well. His shortness of breath has improved, although she remains diffusely wheezy. We will add Pulmicort and Brovana, continue with IV Solu-Medrol, we will increase the dose to 60 mg every 6 hours. Continue with current antibiotic coverage. Patient will be given 0.2 mg of Catapres for blood pressure control. She will be transferred to selective care unit for closer monitoring. Cardiology is also following. On 08/23/2017 I'm seeing this patient for a follow-up. Clinically improved compared to yesterday. Less short of breath compared to yesterday. Less bronchospastic and wheezy. The patient is currently off BiPAP. He remains on a combination of steroids and antibiotics and bronchodilators. Note that he also received diuretics suspecting a component of pulmonary vascular congestion/ edema/aspiration. He is afebrile. He is not having any chest pain. He is not using accessory muscles of breathing and currently is on oxygen at room air with a pulse ox of 96%. No tachycardia. No major respiratory distress. No chest pain. Blood pressures under better control for now. On 08/24/2017, seeing this patient for a follow-up. Iron of the patient is using the BiPAP as the patient gets short of breath in relation to his acute COPD exacerbation. His chest x-ray remains free of any acute pulmonary infiltrates. There is no evidence of any edema or aspiration or pneumonia. Aspiration although distal suspected on clinical grounds yet the patient had a swallow evaluation that came back within normal limits. The patient is on a combination of bronchodilators and the patient is on the 1 of the breast units [id number], the patient is on a combination of budesonide nebulized treatments and Perforomist neb last 2 minutes twice a day, and the patient is on IV Solu Medrol 40 mg every 8 hours. The patient is tolerating diet. He is awake and interactive. Denies having any chest pain. No other significant events over the past 24 hours. Active issue remains his ongoing shortness of breath and bronchospasm and wheezing. The patient is seen again today August 25 2017 in follow-up on the selective care unit. He is currently resting quite comfortably in bed. He did not require the BiPAP last evening. He is currently maintaining good O2 saturations in the 90s on 2 L/m per nasal cannula. He states he is breathing easier today as compared to yesterday. Blood cultures reveal no growth to date. Urine culture reveals no growth. Creatinine 0.99. On 08/26/2017 the patient is sitting up on a chair and the patient is very calm and comfortable less bronchospastic and wheezy compared to yesterday. He is much more comfortable in his breathing. He is remaining on a combination of bronchodilators and steroids. No aspiration. He is very well in his feeding habits and the patient has a good appetite. His communicating. He is interactive. Blood cultures of been negative. He was being treated for an acute COPD exacerbation was gradually improved. He is still on Lasix 20 mg by mouth twice a day. He is also on Augmentin 875 mg by mouth twice a day. He is on IV Solu Medrol 60 mg every 6 hours. The patient is seen again today 08/27/2017 in follow-up on the selective care unit. He is awake and alert in no acute distress. He states he is breathing easier today as compared to yesterday. He states he did not wear the BiPAP last evening. Currently maintaining good O2 saturations in the 90s on room air. His been afebrile. Hemodynamically stable. Blood and urine cultures reveal no growth. Creatinine 1.02. The patient is seen again today 08/28/2017 in follow-up on the selective care unit. He remains awake and alert in no acute distress. He denies any worsening shortness of breath, cough or congestion. He is maintaining good O2 saturations in the 90s on room air. Blood and urine cultures reveal no growth to date. He remains on DuoNeb inhalations, Pulmicort and Perforomist inhalations, oral prednisone. Currently on Augmentin. Objective - Vital Signs Vital signs: Vital Signs Temp 97.2 F L 08/28/17 12:00 Pulse 89 08/28/17 12:00 Resp 18 08/28/17 12:00 BP 114/68 08/28/17 12:00 Pulse Ox 96 08/28/17 12:00 Intake & Output 08/27/17 08/28/17 08/28/17 18:59 06:59 18:59 Intake Total 680 240 474 Output Total 500 1250 0 Balance 180 -1010 474 Weight 78.5 kg 78.5 kg Intake: Oral 680 240 474 Output: Urine 500 1250 0 Stool 0 Other: Voiding Method Indwelling Catheter Indwelling Catheter # Voids 3 0 # Bowel Movements 0 - Exam GENERAL EXAM: Alert, active, comfortable in no apparent distress. HEAD: Normocephalic. EYES: Bilateral cataract/glaucoma with diminished vision. NOSE: Clear with pink turbinates. THROAT: No erythema or exudates. NECK: No masses, no JVD. CHEST: No chest wall deformity. LUNGS: Equal air entry with scattered. End expiratory wheeze. Diminished.. CVS: S1 and S2 normal with no audible murmur, regular rhythm. ABDOMEN: No hepatosplenomegaly, normal bowel sounds, no guarding or rigidity. SPINE: No scoliosis or deformity SKIN: No rashes CENTRAL NERVOUS SYSTEM: No focal deficits, tone is normal in all 4 extremities. EXTREMITIES: There is no peripheral edema. No clubbing, no cyanosis. Peripheral pulses are intact. - Labs CBC & Chem 7: 08/24/17 06:13 08/27/17 05:28 Labs: Abnormal Lab Results - Last 24 Hours (Table) 08/27/17 08/27/17 08/28/17 Range/Units 16:35 20:42 06:16 POC Glucose (mg/dL) 116 H 237 H 215 H (75-99) mg/dL 08/28/17 Range/Units 11:58 POC Glucose (mg/dL) 186 H (75-99) mg/dL Assessment and Plan Assessment: Assessment 1 acute COPD exacerbation with secondary shortness of breath. Improved. Chest x-ray is free of any acute pulmonary infiltrates. No clinical or observed evidence of any aspiration. 2 legally blind with bilateral glucoma's/cataracts 3 previous history of CVA 4 diabetes mellitus type 2 5 hypertension 6 hyperlipidemia 7 old T12 compression fracture of the spine along with spondylolisthesis 8 minimal troponin leak without any acute EKG abnormalities. The patient has a right bundle branch block pattern on his EKG, currently free of any chest pain and the patient is off anticoagulation 9 single fever episode that has recovered Plan The patient was seen and evaluated by Dr. Sinha. We'll continue with his current treatment plan including DuoNeb inhalations, Pulmicort and Perforomist inhalations, oral prednisone. He is on empiric antibiotics in the form of Augmentin. Plan is for transfer back to [facility] tomorrow. I, the cosigning physician, performed a history & physical examination of the patient. Lungs sounds have faint end expiratory wheeze bilaterally. Diminished. Maintaining good O2 saturations in the 90s on room air. I discussed the assessment and plan of care with my nurse practitioner, Tiffanie Ramirez. I attest to the above note as dictated by her.
[2017-08-28 16:49] LABS: Glucose,Whole Blood 180 mg/dL (75-99)
[2017-08-28 21:01] LABS: Glucose,Whole Blood 210 mg/dL (75-99)
--- NOTE | 2017-08-28 21:41 | PN ---
PROGRESS NOTE DATE OF SERVICE: August 28, 2017. PRESENTING COMPLAINT: Short of breath. INTERVAL HISTORY: Patient admitted with pneumonia, sepsis, COPD exacerbation. Breathing continues to improve. Eating better. No new other issues. REVIEW OF SYSTEMS: Done for constitutional, cardiovascular, GI, pulmonary, relevant findings as above. CURRENT MEDICATIONS: Reviewed that include p.o. prednisone. PHYSICAL EXAMINATION: Temperature 97.3, pulse 92, respiratory 18, blood pressure 110/63, pulse ox 97% on room air. General appearance: Lying in bed, awake. Eyes bilateral cornea are hazy. Conjunctivae normal. Neck JVD not raised. Mass not palpable. Respiratory effort normal. Lungs decreased breath sounds. HEENT: External appearance of nose and ears normal. Oral cavity normal. Cardiovascular: 1st and 2nd sounds normal. No edema. ABDOMEN: Soft. Nontender. The liver and spleen not palpable. Psychiatry: Awake, answering questions appropriately. INVESTIGATIONS: Accu-Cheks are noted. ASSESSMENT: 1. Right right-sided pneumonia suspect gram-negative organism causing sepsis, present admission with clinical improvement. Also had tracheitis. 2. Acute chronic obstructive pulmonary disease exacerbation. 3. Smoker improving. 4. Diabetes mellitus type 2 on oral hypoglycemic, uncontrolled with hyperglycemia from steroids. 5. Legally blind can only perceive light. 6. Essential hypertension. 7. Hyperlipidemia. 8. 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 9. Dual urine and stool incontinence, chronically uses briefs. 10.Medical debility. Patient at baseline, needs help to be transferred. We will watch patient on oral prednisone today. If he remains stable, then will be discharged to the [facility] tomorrow. I discussed with Tiffanie from Pulmonary. MMMADINAL / ERIKN: [id number] /
[2017-08-29 06:04] LABS: Glucose,Whole Blood 115 mg/dL (75-99)
[2017-08-29] MEDS: PANTOPRAZOLE 40 MG TABLET PO SCH ×2 (06:56→16:57)
[2017-08-29] MEDS: BUDESONIDE 1 MG/2 ML NEBU INHALATION SCH (08:11)
[2017-08-29] MEDS: FORMOTEROL FUMARATE 20 MCG/2 ML NEBU INHALATION SCH (08:11)
[2017-08-29] MEDS: IPRATROPIUM-ALBUTEROL 3 ML NEB INHALATION SCH ×3 (08:11→15:26)
[2017-08-29] MEDS: ENOXAPARIN 40 MG/0.4 ML SYRINGE SQ SCH (09:50)
[2017-08-29] MEDS: predniSONE 20 MG TAB PO SCH (09:50)
[2017-08-29] MEDS: METOPROLOL TARTRATE 25 MG TAB PO SCH ×2 (09:50→16:57)
[2017-08-29] MEDS: AMOXIC-POT CLAV 875-125MG 1 EACH TAB PO SCH (09:50)
[2017-08-29] MEDS: ASPIRIN 81 MG PO SCH (09:50)
[2017-08-29] MEDS: metFORMIN 500 MG TAB PO SCH ×2 (09:51→16:57)
[2017-08-29] MEDS: FUROSEMIDE 20 MG TAB PO SCH ×2 (09:51→16:57)
[2017-08-29] MEDS: guaiFENesin 600 MG TABLET.ER PO SCH (09:51)
[2017-08-29] MEDS: LISINOPRIL 10 MG TAB PO SCH (09:51)
[2017-08-29] MEDS: INSULIN ASPART 100 UNIT/ML 1 ML 10 ML VIAL SQ SCH ×3 (09:53→16:58)
[2017-08-29 12:05] LABS: Glucose,Whole Blood 266 mg/dL (75-99)
--- NOTE | 2017-08-29 12:12 | CDI ---
Last Revision, April 2017 Documentation Clarification Form Date: 08/29/17 From: Brenda Santos RN, CCDS Admit Date: 08/20/2017 2:45:00 PM Patient Name: Denis Barajas Visit Number: [id number] Discharge Date: ATTENTION: The Clinical Documentation Specialists (CDI) and [facility] Coding Staff appreciate your assistance in clarifying documentation. Please respond to the clarification below the line at the bottom and electronically sign. The CDI & [facility] Coding staff will review the response and follow-up if needed. Please note: Queries are made part of the Legal Health Record. If you have any questions, please contact the author of this message via ITS. Dr. Toni Sinha 08/22/17 patient went into respiratory distress, rapid response team was called. He was placed on BiPAP support. with pressures 10 and 5 at 30 % History/Risk Factors: COPD, Diabetes Mellitus type II, Hypertension, CVA/TIA, ( right side deficits) Clinical Indicators: He had shortness of breath, bronchospastic, diffusely wheezy, accessory muscle use, labored breathing. Vital signs: 163/97 101 19 98 97 % BIPAP Pulse oximetry:87 % BIPAP 98 % 5/L NC Chest x-ray: Chronic changes without evidence for acute pulmonary disease Treatment: Duoneb's, PRN Pulmicort PRN, Lasix IV, to Po Solu-Medrol IV (taper) Monitor O2Sat's (titrate) In your professional opinion, can you please clarify if these findings signify one of the following conditions? Acuity: Acute Chronic Acute on Chronic Specificity: Respiratory Failure, further specify (if known): With hypercapnia? With hypoxia? Respiratory Distress Respiratory Insufficiency Other Diagnosis, please specify Unable to determine Please continue to document in your progress notes and discharge summary in order to capture severity of illness and risk of mortality. Include clinical findings that support your diagnosis. MTDD
[2017-08-29 12:18] VITALS: TEMP 97.4
--- NOTE | 2017-08-29 12:41 | CDI ---
Last Revision, April 2017 Documentation Clarification Form Date: 08/29/17 From: Brenda Santos RN, CCDS Admit Date: 08/20/2017 2:45:00 PM Patient Name: Denis Barajas Visit Number: [id number] Discharge Date: ATTENTION: The Clinical Documentation Specialists (CDI) and [facility] Coding Staff appreciate your assistance in clarifying documentation. Please respond to the clarification below the line at the bottom and electronically sign. The CDI & [facility] Coding staff will review the response and follow-up if needed. Please note: Queries are made part of the Legal Health Record. If you have any questions, please contact the author of this message via ITS. Dr. Rai Belcher 08/23/17 Mild troponin abnormality, likely secondary to oxygen supply and demand mismatch. Patient history/risk factors: COPD, CVA/TIA, Diabetes mellitus type II, Hypertension Clinical Indicators: Transferred to monitored unit because of respiratory issues. Patient had significant scattered coarse wheezing throughout. Lab findings: Tropinon 0.036, 0.043, BNP 2020, Mag+ 1.5 Radiology findings: No acute cardiopulmonary process and no heart failure. Vital Signs: 163/97 101 19 98, 97 % BiPAP Other Clinical Indicators: 08/22 progress note: Dr. Mayes determined the troponin lead was secondary to acute underlying illness and oxygen mismatch secondary to exacerbation of COPD. Telemetry tracing show a 16 beat run of VT on 08/21/17 around 2024: This morning found acute respiratory distress and placed on Bipap. Treatment: ASA Lisinopril Po Metoprolol PO Telemetry monitoring Replace Magnesium per protocol Monitor Labs In your professional opinion, can you please clarify if you are treating? Type 2 NM Other, please specify Unable to determine Please continue to document in your progress notes and discharge summary in order to capture severity of illness and risk of mortality. Include clinical findings that support your diagnosis. MTDD
[2017-08-29 13:35] VITALS: BP 132/60
[2017-08-29 15:28] VITALS: PULSE 102
--- NOTE | 2017-08-29 15:34 | P.PN ---
Subjective Progress Note Date: 08/29/17 Principal diagnosis: Acute exacerbation of chronic obstructive pulmonary disease. A 72-year-old male patient with known history of COPD was coming into the hospital after a few days of being discharged from the hospital for altered mentation and shortness of breath. Fact the patient had a similar presentation during which the patient was evaluated by our pulmonary services. He was found to be in acute COPD exacerbation and he was found to be acutely bronchospastic and wheezy. He also had a temperature spike of 101.0. He has been afebrile since. At that time the chest x-ray showed no acute abnormalities. The patient was treated with a combination of bronchodilators and steroids and he was discharged back to [facility] where he resides. He is very much debilitated. He is a poor historian. He gives simple answers by saying yes and no. 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 He is diabetic and also has problems with hypertension and hyperlipidemia. He has also been involved in a stroke in the past. The patient has no congested cough. He has not had any episodes of aspiration and a previous swallow evaluation was done showed no indication that the patient is an increased risk for aspiration. He denies having any chest pain. He is moving all 4 extremities and he can follow only simple commands. The patient is currently on a combination of bronchodilators and steroids. Troponin was minimally elevated and the patient was started also on IV heparin. I reviewed EKG and the patient has a right bundle branch block pattern that was also present on previous EKGs from previous hospitalization and this is not an obviously a new finding. His current echocardiogram showed no acute abnormalities and a chest x-ray is not showing any acute abnormalities. CAT scan of the head that was done on 08/11/2017 was also within normal limits. On 08/21/2017 the patient is looking better compared to yesterday. His last bronchus spastic and wheezy. He is tolerating his diet. No nausea. No vomiting. No emesis. No aspiration. He had only one spike of temperature of 10 1F and since then the patient has not spiked any temperature. He remains on a combination of Zosyn and vancomycin. This has been an empiric antibiotic coverage. No leukocytosis. Hemodynamically stable. He is a selective overflow who came in to the intensive care unit. Mentation is essentially the same, probably slightly more awake compared to yesterday and more interactive. He is on IV Solu-Medrol. He has developed some mild steroid-induced hyperglycemia for which is on a insulin by sliding scale coverage. Troponins were noted. Most recent troponin is at 0.02 and the patient was taken off IV heparin and he was provided subcu heparin. On 08/22/2017 patient seen in follow-up. This morning he went into respiratory distress, rapid response team was called, who administered 40 mg of Lasix, patient has already been on IV steroids, and IV Zosyn. Patient was then placed on BiPAP support with pressures 10 and 5, and 30%. Patient started diuresing, he put out close to 400 mL in the first few hours of Lasix administration. Chest x-ray did not show any acute findings. Patient remains afebrile, denies any chest pain. He became very hypertensive this morning, with SBP in the 200s , and DBP in the 100s. Patient is on metoprolol 25 mg twice a day, and lisinopril 5 mg once daily. Despite that, the patient remains hypertensive. Last night he was having runs of VT, with the longest one up to 13 beats, followed by shorter runs of 3-4 beats. Today he is in sinus rhythm, he is tachycardic with a heart rate up to 118 BPM. We will obtain a 12-lead EKG. Patient is not tolerating BiPAP mask very well, is very restless, he is very uncomfortable, and requested to take the BiPAP mask off. We will give him a trial of nasal cannula, and so far he is tolerating 5 L per nasal cannula well. His shortness of breath has improved, although she remains diffusely wheezy. We will add Pulmicort and Brovana, continue with IV Solu-Medrol, we will increase the dose to 60 mg every 6 hours. Continue with current antibiotic coverage. Patient will be given 0.2 mg of Catapres for blood pressure control. She will be transferred to selective care unit for closer monitoring. Cardiology is also following. On 08/23/2017 I'm seeing this patient for a follow-up. Clinically improved compared to yesterday. Less short of breath compared to yesterday. Less bronchospastic and wheezy. The patient is currently off BiPAP. He remains on a combination of steroids and antibiotics and bronchodilators. Note that he also received diuretics suspecting a component of pulmonary vascular congestion/ edema/aspiration. He is afebrile. He is not having any chest pain. He is not using accessory muscles of breathing and currently is on oxygen at room air with a pulse ox of 96%. No tachycardia. No major respiratory distress. No chest pain. Blood pressures under better control for now. On 08/24/2017, seeing this patient for a follow-up. Iron of the patient is using the BiPAP as the patient gets short of breath in relation to his acute COPD exacerbation. His chest x-ray remains free of any acute pulmonary infiltrates. There is no evidence of any edema or aspiration or pneumonia. Aspiration although distal suspected on clinical grounds yet the patient had a swallow evaluation that came back within normal limits. The patient is on a combination of bronchodilators and the patient is on the 1 of the breast units [id number], the patient is on a combination of budesonide nebulized treatments and Perforomist neb last 2 minutes twice a day, and the patient is on IV Solu Medrol 40 mg every 8 hours. The patient is tolerating diet. He is awake and interactive. Denies having any chest pain. No other significant events over the past 24 hours. Active issue remains his ongoing shortness of breath and bronchospasm and wheezing. The patient is seen again today August 25 2017 in follow-up on the selective care unit. He is currently resting quite comfortably in bed. He did not require the BiPAP last evening. He is currently maintaining good O2 saturations in the 90s on 2 L/m per nasal cannula. He states he is breathing easier today as compared to yesterday. Blood cultures reveal no growth to date. Urine culture reveals no growth. Creatinine 0.99. On 08/26/2017 the patient is sitting up on a chair and the patient is very calm and comfortable less bronchospastic and wheezy compared to yesterday. He is much more comfortable in his breathing. He is remaining on a combination of bronchodilators and steroids. No aspiration. He is very well in his feeding habits and the patient has a good appetite. His communicating. He is interactive. Blood cultures of been negative. He was being treated for an acute COPD exacerbation was gradually improved. He is still on Lasix 20 mg by mouth twice a day. He is also on Augmentin 875 mg by mouth twice a day. He is on IV Solu Medrol 60 mg every 6 hours. The patient is seen again today 08/27/2017 in follow-up on the selective care unit. He is awake and alert in no acute distress. He states he is breathing easier today as compared to yesterday. He states he did not wear the BiPAP last evening. Currently maintaining good O2 saturations in the 90s on room air. His been afebrile. Hemodynamically stable. Blood and urine cultures reveal no growth. Creatinine 1.02. The patient is seen again today 08/28/2017 in follow-up on the selective care unit. He remains awake and alert in no acute distress. He denies any worsening shortness of breath, cough or congestion. He is maintaining good O2 saturations in the 90s on room air. Blood and urine cultures reveal no growth to date. He remains on DuoNeb inhalations, Pulmicort and Perforomist inhalations, oral prednisone. Currently on Augmentin. The patient is seen again today 08/29/2017 in follow-up on the selective care unit. He is resting quite comfortably in bed. He is maintaining good O2 saturations in the 90s on room air. He denies any worsening shortness of breath , cough or congestion. No pain or discomfort. He is afebrile. Hemodynamically stable. Objective - Vital Signs Vital signs: Vital Signs Temp 97.4 F L 08/29/17 12:00 Pulse 102 H 08/29/17 15:27 Resp 18 08/29/17 12:00 BP 132/60 08/29/17 12:00 Pulse Ox 94 L 08/29/17 12:00 Intake & Output 08/28/17 08/29/17 08/29/17 18:59 06:59 18:59 Intake Total 711 236 Output Total 600 400 600 Balance 111 400 -364 Weight 78.5 kg 77.5 kg Intake: Oral 711 236 Output: Urine 600 400 600 Stool 0 0 Other: Voiding Method Indwelling Catheter Indwelling Catheter Indwelling Catheter # Voids 0 1 # Bowel Movements 1 - Exam GENERAL EXAM: Alert, active, comfortable in no apparent distress. HEAD: Normocephalic. EYES: Bilateral cataract/glaucoma with diminished vision. NOSE: Clear with pink turbinates. THROAT: No erythema or exudates. NECK: No masses, no JVD. CHEST: No chest wall deformity. LUNGS: Equal air entry with scattered. End expiratory wheeze. Diminished.. CVS: S1 and S2 normal with no audible murmur, regular rhythm. ABDOMEN: No hepatosplenomegaly, normal bowel sounds, no guarding or rigidity. SPINE: No scoliosis or deformity SKIN: No rashes CENTRAL NERVOUS SYSTEM: No focal deficits, tone is normal in all 4 extremities. EXTREMITIES: There is no peripheral edema. No clubbing, no cyanosis. Peripheral pulses are intact. - Labs CBC & Chem 7: 08/24/17 06:13 08/27/17 05:28 Labs: Abnormal Lab Results - Last 24 Hours (Table) 08/28/17 08/28/17 08/29/17 Range/Units 16:47 20:56 06:02 POC Glucose (mg/dL) 180 H 210 H 115 H (75-99) mg/dL 08/29/17 Range/Units 11:50 POC Glucose (mg/dL) 266 H (75-99) mg/dL Assessment and Plan Assessment: Assessment 1 Acute hypoxic respiratory failure secondary to an acute COPD exacerbation. Recovered. Chest x-ray is free of any acute pulmonary infiltrates. No clinical or observed evidence of any aspiration. 2 legally blind with bilateral glucoma's/cataracts 3 previous history of CVA 4 diabetes mellitus type 2 5 hypertension 6 hyperlipidemia 7 old T12 compression fracture of the spine along with spondylolisthesis 8 minimal troponin leak without any acute EKG abnormalities. The patient has a right bundle branch block pattern on his EKG, currently free of any chest pain and the patient is off anticoagulation 9 single fever episode that has recovered Plan The patient was seen and evaluated by Dr. Sinha. He is cleared for discharge from the pulmonary standpoint. We'll continue with his current treatment plan including DuoNeb inhalations, Pulmicort and Perforomist inhalations, oral prednisone. He is on empiric antibiotics in the form of Augmentin. Plan is for transfer back to [facility]. He could be followed by Dr. Sharma there if needed. I, the cosigning physician, performed a history & physical examination of the patient. Lungs sounds have faint end expiratory wheeze bilaterally. Diminished. Maintaining good O2 saturations in the 90s on room air. I discussed the assessment and plan of care with my nurse practitioner, Tiffanie Ramirez. I attest to the above note as dictated by her.
--- NOTE | 2017-08-29 15:36 | DS ---
DISCHARGE SUMMARY DATE OF ADMISSION: 08/20/2017. DATE OF DISCHARGE: 08/29/2017. FINAL DIAGNOSES: 1. Right-sided pneumonia, possible gram-negative organism causing sepsis, present on admission with significant improvement and also tracheitis. 2. Acute chronic obstructive pulmonary disease exacerbation. 3. Ex-smoker. 4. Diabetes mellitus 2 on oral hypoglycemic, uncontrolled with hypoglycemia from steroids. 5. Legally blind can only perceive light. 6. Essential hypertension. 7. Hyperlipidemia. 8. 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 9. Urine and stool incontinence chronically uses Breeze. 10.Medical debility patient at baseline, needs help to be transferred. HOSPITAL COURSE: This patient initially presented with septic numbers and other questionable infiltrate, given antibiotics. Then patient also had a COPD exacerbation. Did respond finally to antibiotic steroids, nebulized bronchodilators. Currently patient doing much better now. Pulse ox 94% on room air. Tolerating a diet, PHYSICAL EXAMINATION: On exam lungs decreased breath sounds. Answering questions appropriately. The patient did have a 2-D echocardiogram that showed EF of 50-55%. At time of discharge diagnosis is hypertensive heart disease with LVH on 2D echo. CONSULTATIONS: Dr. Milan and colleagues from Pulmonary, Dr. Andrzej Mayes from Cardiology. DISCHARGE MEDICATIONS: 1. Glucophage 5 mg p.o. b.i.d. 2. Ventolin 2.5 q.6h p.r.n. 3. Aspirin 81 mg a day. 4. Prinivil 5 mg p.o. daily. 5. Lopressor 25 p.o. b.i.d. 6. DuoNeb DuoNeb q.i.d. 7. Tylenol Arthritis 650 mg q.4 p.r.n. 8. Humalog per scale. 9. Protonix 40 mg p.o. b.i.d. 10.Augmentin 875 1 tablet p.o. q.12 4 tablets. 11.Pulmicort 1 mg nebulizer b.i.d. for of 14 doses. 12.Lasix 40 mg p.o. daily. 13.Prednisone taper. Lab CBC BMP in 3-5 days. DISPOSITION: [facility] follow with follow up with Dr. Azul. MMODL / IJN: [id number] /
[2017-08-29 16:44] LABS: Glucose,Whole Blood 198 mg/dL (75-99)
--- NOTE | 2017-08-30 14:58 | P.PN ---
Progress Note - Text Progress Note Date: 08/30/17 This is an addendum to the cardiology progress note dictated, patient had troponin abnormality, secondary to supply and demand mismatch, reflecting type II TX. DNP note has been reviewed, I agree with a documented findings and plan of care. Patient was seen and examined.
== END 2017-08-29 18:01 | DRG 871 ==
LOC: EC 11:12 → 6SEL 14:45 → 6ICU 21:33 → 4MS4W 08-21 16:12 → 6SEL 08-22 14:03
PROVIDERS: ADMIT Hospitalist; ATTEND Hospitalist
DX: A41.50 Gram-negative sepsis, unspecified (principal); J15.6 Pneumonia due to other Gram-negative bacteria; I21.A1 Myocardial infarction type 2; J96.01 Acute respiratory failure with hypoxia; R40.2113 Coma scale, eyes open, never, at hospital admission; I47.2 Ventricular tachycardia; J44.1 Chronic obstructive pulmonary disease with (acute) exacerbation; J44.0 Chronic obstructive pulmonary disease with (acute) lower respiratory infection; I69.351 Hemiplegia and hemiparesis following cerebral infarction affecting right dominant side; E83.42 Hypomagnesemia; E11.65 Type 2 diabetes mellitus with hyperglycemia; E11.36 Type 2 diabetes mellitus with diabetic cataract; I45.10 Unspecified right bundle-branch block; J04.10 Acute tracheitis without obstruction; E78.5 Hyperlipidemia, unspecified; I10 Essential (primary) hypertension; H54.8 Legal blindness, as defined in USA; H40.9 Unspecified glaucoma; R40.2243 Coma scale, best verbal response, confused conversation, at hospital admission; R40.2363 Coma scale, best motor response, obeys commands, at hospital admission; M43.14 Spondylolisthesis, thoracic region; R32 Unspecified urinary incontinence; R15.9 Full incontinence of feces; Z79.82 Long term (current) use of aspirin; Z79.899 Other long term (current) drug therapy; Z79.4 Long term (current) use of insulin; Z79.52 Long term (current) use of systemic steroids; Z87.311 Personal history of (healed) other pathological fracture; Z87.891 Personal history of nicotine dependence; Z74.01 Bed confinement status; Z91.81 History of falling; Z88.5 Allergy status to narcotic agent; Z83.3 Family history of diabetes mellitus
CPT/HCPCS: 36415; 71045; 80048; 80053; 80061; 81001; 82550; 82553; 83605; 83735; 83880; 84484; 85025; 85027; 85049; 85379; 85610; 85730; 87040; 87086; 87502; 93005; 93306; 94640; 94660; 94760; 96365; 96366; 96368; 96375; 96376; 99285

== ENCOUNTER 2018-01-08 15:14 | Inpatient (IN) | payer MEDICARE, OTHER ==
[2018-01-08] MEDS ORDERED: SODIUM CHLORIDE 0.9% 1,000 ML IV STA (15:36)
[2018-01-08] MEDS ORDERED: SODIUM CHLORIDE 0.9% 500 ML IV STA (15:37)
--- NOTE | 2018-01-08 15:40 | ED ---
Abdominal Pain HPI - General Chief Complaint: Abdominal Pain Stated Complaint: Weakness Time Seen by Provider: 01/08/18 15:14 Source: patient, EMS, RN notes reviewed, old records reviewed Mode of arrival: EMS Limitations: no limitations - History of Present Illness Initial Comments: This is a 72-year-old male history of multiple medical problems including CVA depression COPD type 2 diabetes who is brought in because of not acting right today. He did decrease activity no fevers chills nausea vomiting. Upon arrival he complains of some abdominal pain especially the right side. No other complaints this time MD Complaint: abdominal pain, other - Related Data Home Medications Medication Instructions Recorded Confirmed metFORMIN HCL [Glucophage] 500 mg PO BID@0900,1700 05/05/16 01/08/18 Albuterol Nebulized [Ventolin 2.5 mg INHALATION RT-Q6H PRN 08/11/17 01/08/18 Nebulized] Aspirin 81 mg PO DAILY@0900 08/11/17 01/08/18 Lisinopril [Prinivil] 5 mg PO DAILY@0900 08/11/17 01/08/18 Metoprolol Tartrate [Lopressor] 25 mg PO BID@0900,1700 08/11/17 01/08/18 Acetaminophen [Tylenol Arthritis] 650 mg PO Q6H PRN 08/20/17 01/08/18 Pantoprazole [Protonix] 40 mg PO DAILY 08/20/17 01/08/18 Budesonide [Pulmicort] 1 mg INHALATION RT-BID 01/08/18 01/08/18 Cholecalciferol (Vitamin D3) 2,000 unit PO DAILY 01/08/18 01/08/18 [Vitamin D3] Citalopram Hydrobromide [CeleXA] 10 mg PO DAILY 01/08/18 01/08/18 Ferrous Sulfate [Feosol] 325 mg PO DAILY 01/08/18 01/08/18 Insulin Lispro [humaLOG Kwikpen] See Protocol SQ QID 01/08/18 01/08/18 Previous Rx's Medication Instructions Recorded Ipratropium-Albuterol Nebulize 3 ml INHALATION RT-QID ampul.neb 08/13/17 [Duoneb 0.5 mg-3 mg/3 ml Soln] Furosemide [Lasix] 40 mg PO DAILY #1 tablet 08/29/17 Allergies Allergy/AdvReac Type Severity Reaction Status Date / Time hydrocodone bitartrate AdvReac Nausea Verified 01/08/18 15:29 [From Vicodin] Review of Systems ROS Statement: Those systems with pertinent positive or pertinent negative responses have been documented in the HPI. ROS Other: All systems not noted in ROS Statement are negative. 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 ddd, old t12 compression fx, spopndylothesis ( per chest xray), wears attend,incont stool/urine. bed bound w / assist to chair. per regen- pt's baseline is alert,cooperative and knows person/place and normally he has a very good appetite-"they know he not feeling well when he does'nt feel like eating". History of Any Multi-Drug Resistant Organisms: None Reported Past Surgical History: No Surgical Hx Reported Additional Past Surgical History / Comment(s): unknown Past Anesthesia/Blood Transfusion Reactions: No Reported Reaction Past Psychological History: No Psychological Hx Reported Smoking Status: Former smoker - Past Family History Father Family Medical History: Diabetes Mellitus Mother Family Medical History: Dementia, Diabetes Mellitus Brother(s) Family Medical History: Unable to Obtain General Exam - General Exam Comments Initial Comments: This a well-developed well-nourished awake alert male he is slow to answer but appears be oriented x3 Limitations: no limitations General appearance: alert, in no apparent distress Eye exam: Present: EOMI, other (Opacification the corneas bilaterally) ENT exam: Present: mucous membranes dry Neck exam: Present: normal inspection. Absent: tenderness, meningismus, lymphadenopathy Respiratory exam: Present: decreased breath sounds, other (Crepitus at the bases ) Cardiovascular Exam: Present: regular rate, normal rhythm, normal heart sounds. Absent: systolic murmur, diastolic murmur, rubs, gallop, clicks GI/Abdominal exam: Present: soft, tenderness (Lower quadrant tenderness palpation no guarding rebound masses or bruits) Rectal exam: Present: deferred exam: Present: normal inspection Extremities exam: Present: normal capillary refill. Absent: full ROM, tenderness Back exam: Absent: tenderness Neurological exam: Present: alert, oriented X3, motor sensory deficit. Absent: CN II-XII intact (The patient is legally blind) Psychiatric exam: Present: flat affect Skin exam: Present: warm, dry, intact, normal color. Absent: rash Course Vital Signs 01/08/18 01/08/18 01/08/18 15:23 16:16 17:15 Temperature 97.9 F Pulse Rate 77 80 96 Respiratory 16 16 18 Rate Blood Pressure 144/64 149/60 155/78 O2 Sat by Pulse 99 98 97 Oximetry 01/08/18 18:15 Temperature 97.8 F Pulse Rate 87 Respiratory 18 Rate Blood Pressure 158/87 O2 Sat by Pulse 98 Oximetry Medical Decision Making - Medical Decision Making Patient will be admitted I discuss case with Dr. Shin who did come to see the patient in the emergency department. - Lab Data Result diagrams: 01/08/18 15:35 01/08/18 15:35 Lab Results 01/08/18 01/08/18 01/08/18 Range/Units 15:35 15:35 15:35 WBC 11.3 H (3.8-10.6) k/uL RBC 4.26 L (4.30-5.90) m/uL Hgb 12.5 L (13.0-17.5) gm/dL Hct 37.4 L (39.0-53.0) % MCV 88.0 (80.0-100.0) fL MCH 29.4 (25.0-35.0) pg MCHC 33.4 (31.0-37.0) g/dL RDW 12.7 (11.5-15.5) % Plt Count 285 (150-450) k/uL Neutrophils % 78 % Lymphocytes % 13 % Monocytes % 8 % Eosinophils % 0 % Basophils % 0 % Neutrophils # 8.8 H (1.3-7.7) k/uL Lymphocytes # 1.5 (1.0-4.8) k/uL Monocytes # 0.8 (0-1.0) k/uL Eosinophils # 0.0 (0-0.7) k/uL Basophils # 0.0 (0-0.2) k/uL Sodium 138 (137-145) mmol/L Potassium 4.6 (3.5-5.1) mmol/L Chloride 101 (98-107) mmol/L Carbon Dioxide 27 (22-30) mmol/L Anion Gap 10 mmol/L BUN 38 H (9-20) mg/dL Creatinine 1.20 (0.66-1.25) mg/dL Est GFR (CKD-EPI)AfAm 69 (>60 ml/min/1.73 sqM) Est GFR (CKD-EPI)NonAf 59 (>60 ml/min/1.73 sqM) Glucose 120 H (74-99) mg/dL Calcium 8.8 (8.4-10.2) mg/dL Total Bilirubin 0.6 (0.2-1.3) mg/dL AST 86 H (17-59) U/L ALT 50 (21-72) U/L Alkaline Phosphatase 122 (38-126) U/L Total Creatine Kinase 68 (55-170) U/L CK-MB (CK-2) 1.3 (0.0-2.4) ng/mL CK-MB (CK-2) Rel Index 1.9 Troponin I <0.012 (0.000-0.034) ng/mL Total Protein 6.2 L (6.3-8.2) g/dL Albumin 3.7 (3.5-5.0) g/dL Amylase 82 (30-110) U/L Lipase 312 H (23-300) U/L Urine Color Urine Appearance (Clear) Urine pH (5.0-8.0) Ur Specific [place] (1.001-1.035) Urine Protein (Negative) Urine Glucose (UA) (Negative) Urine Ketones (Negative) Urine Blood (Negative) Urine Nitrite (Negative) Urine Bilirubin (Negative) Urine Urobilinogen (<2.0) mg/dL Ur Leukocyte Esterase (Negative) 01/08/18 Range/Units 19:40 WBC (3.8-10.6) k/uL RBC (4.30-5.90) m/uL Hgb (13.0-17.5) gm/dL Hct (39.0-53.0) % MCV (80.0-100.0) fL MCH (25.0-35.0) pg MCHC (31.0-37.0) g/dL RDW (11.5-15.5) % Plt Count (150-450) k/uL Neutrophils % % Lymphocytes % % Monocytes % % Eosinophils % % Basophils % % Neutrophils # (1.3-7.7) k/uL Lymphocytes # (1.0-4.8) k/uL Monocytes # (0-1.0) k/uL Eosinophils # (0-0.7) k/uL Basophils # (0-0.2) k/uL Sodium (137-145) mmol/L Potassium (3.5-5.1) mmol/L Chloride (98-107) mmol/L Carbon Dioxide (22-30) mmol/L Anion Gap mmol/L BUN (9-20) mg/dL Creatinine (0.66-1.25) mg/dL Est GFR (CKD-EPI)AfAm (>60 ml/min/1.73 sqM) Est GFR (CKD-EPI)NonAf (>60 ml/min/1.73 sqM) Glucose (74-99) mg/dL Calcium (8.4-10.2) mg/dL Total Bilirubin (0.2-1.3) mg/dL AST (17-59) U/L ALT (21-72) U/L Alkaline Phosphatase (38-126) U/L Total Creatine Kinase (55-170) U/L CK-MB (CK-2) (0.0-2.4) ng/mL CK-MB (CK-2) Rel Index Troponin I (0.000-0.034) ng/mL Total Protein (6.3-8.2) g/dL Albumin (3.5-5.0) g/dL Amylase (30-110) U/L Lipase (23-300) U/L Urine Color Yellow Urine Appearance Clear (Clear) Urine pH 5.0 (5.0-8.0) Ur Specific [place] 1.010 (1.001-1.035) Urine Protein Negative (Negative) Urine Glucose (UA) Negative (Negative) Urine Ketones Negative (Negative) Urine Blood Negative (Negative) Urine Nitrite Negative (Negative) Urine Bilirubin Negative (Negative) Urine Urobilinogen <2.0 (<2.0) mg/dL Ur Leukocyte Esterase Negative (Negative) - Radiology Data Radiology results: report reviewed (I did review the imaging and report no definite acute findings others poor inspiratory effort I did review the case with Dr. Shin there is evidence of possible pneumonitis.), image reviewed Disposition Clinical Impression: Pneumonitis, Dehydration Disposition: ADMITTED IP TO THIS HOSP Condition: Stable Referrals: Leonides Azul MD [Primary Care Provider] - 1-2 days
[2018-01-08 16:00] LABS: Basophils % (A) 0 %; Eosinophils % (A) 0 %; HCT 37.4 % (39.0-53.0); HGB 12.5 gm/dL (13.0-17.5); Lymphocytes # (A) 1.5 k/uL (1.0-4.8); Lymphocytes % (A) 13 %; MCH 29.4 pg (25.0-35.0); MCHC 33.4 g/dL (31.0-37.0); Mean Platelet Volume 7.6; Monocytes # (A) 0.8 k/uL (0-1.0); Monocytes % (A) 8 %; Neutrophils # (A) 8.8 k/uL (1.3-7.7); Neutrophils % (A) 78 %; Platelet Count 285 k/uL (150-450); RBC 4.26 m/uL (4.30-5.90); RDW 12.7 % (11.5-15.5); WBC 11.3 k/uL (3.8-10.6)
[2018-01-08 16:09] LABS: Albumin 3.7 g/dL (3.5-5.0); Calcium 8.8 mg/dL (8.4-10.2); Potassium 4.6 mmol/L (3.5-5.1); Total Bilirubin 0.6 mg/dL (0.2-1.3); Total Protein 6.2 g/dL (6.3-8.2)
--- NOTE | 2018-01-08 16:11 | XR ---
EXAMINATION TYPE: XR chest 2V DATE OF EXAM: 01/08/2018 COMPARISON: Chest x-ray August 24, 2017. HISTORY: Weakness and cough. TECHNIQUE: Frontal and lateral views of the chest are obtained. FINDINGS: Somewhat low lung volumes are redemonstrated. There is chronic parenchymal change without suspicious new focal air space opacity, pleural effusion, or pneumothorax seen. The cardiac silhouet te size is upper limits of normal with atherosclerotic aorta. The osseous structures are deminerali zed. IMPRESSION: Chronic changes without acute pulmonary process. No significant change from prior.
[2018-01-08 16:13] LABS: Creatine Kinase 68 U/L (55-170)
--- NOTE | 2018-01-08 16:13 | XR ---
EXAMINATION TYPE: XR KUB DATE OF EXAM: 01/08/2018 4:07 PM CLINICAL HISTORY: Weakness and pain. TECHNIQUE: Two Upright KUB images of the abdomen are obtained. COMPARISON: Abdominal x-ray February 23, 2016. FINDINGS: Scattered gas is seen in non-distended small bowel loops. Gas is seen in non-distended colo n. Underlying scoliosis is present. There is vascular calcification and phleboliths in the pelvis. No pneumoperitoneum is present. IMPRESSION: Overall nonobstructive bowel gas pattern.
[2018-01-08 16:26] LABS: Creatine Kinase MB 1.3 ng/mL (0.0-2.4); Troponin I <0.012 ng/mL (0.000-0.034)
--- NOTE | 2018-01-08 19:29 | CT ---
EXAMINATION TYPE: CT abdomen pelvis wo con DATE OF EXAM: 01/08/2018 COMPARISON: None HISTORY: Generalized pain. CT DLP: 1039.5 mGycm Automated exposure control for dose reduction was used. TECHNIQUE: Helical acquisition of images was performed from the lung bases through the pelvis. FINDINGS: There is subsegmental atelectasis at the left posterior lung base. Heart size is normal. There are ga llstones. Bile ducts are not dilated. There is no focal liver defect. Spleen appears normal. There is no evidence of a pancreatic mass. There is no adrenal mass. Kidneys have normal size and con tour. There is no hydronephrosis. Ureters are not dilated. Bladder distends smoothly. There is mild p rostatic calcification. There is no intestinal wall thickening. There are no dilated loops. Appendix appears normal. There is a 3 mm calcification at the left renal hilum that could be vascular. There i s no retroperitoneal adenopathy. There is no ascites. The bony structures are intact. There are multi level spondylotic changes in the lumbar spine. There is small umbilical hernia that contains fat. IMPRESSION: SPONDYLOTIC CHANGES IN THE LUMBAR SPINE. ATHEROSCLEROTIC VASCULAR DISEASE. NO EVIDENCE OF RENAL STONE OR OBSTRUCTION. GALLSTONES.
[2018-01-08] MEDS ORDERED: ALBUTEROL NEBULIZED 2.5 MG/3 ML INHALATION PRN (19:53)
[2018-01-08 19:57] LABS: Appearance,Urine Clear (Clear); Bilirubin,Urine Negative (Negative); Blood,Urine Negative (Negative); Color,Urine Yellow; Glucose,Urine (UA) Negative (Negative); Ketones,Urine Negative (Negative); Leukocyte Esterase,Urine Negative (Negative); Nitrite,Urine Negative (Negative); Protein,Urine Negative (Negative); Urobilinogen,Urine <2.0 mg/dL (<2.0)
[2018-01-08] MEDS ORDERED: ACETAMINOPHEN IV (For NPO) 1,000 MG in EMPTY BAG 1 BAG IVPB PRN (20:01)
[2018-01-08] MEDS ORDERED: PNEUMONIA PROTOCOL UTILIZED 1 EACH MISC PO PRN (20:38)
--- NOTE | 2018-01-08 20:58 | US ---
EXAMINATION TYPE: US gallbladder DATE OF EXAM: 01/08/2018 COMPARISON: NONE CLINICAL HISTORY: Pain. Vomiting and pain.Exam limitations due to body habitus and gas.Patient unable to roll well and hold breath. EXAM MEASUREMENTS: Liver Length: 15.6 cm Gallbladder Wall: 0.43 cm CBD: 0.35 cm Right Kidney: 11.0 x 6.0 x 4.9 cm Pancreas: Obscured by bowel gas Liver: Limited due to body habitus. Gallbladder: Gallstones seen largest measuring 2.5 cm with wall thickening and small amount of fluid seen. Evidence for sonographic Harris's sign: No CBD: wnl Right Kidney: Appears wnl. IMPRESSION: Large gallstones. No dilated ducts.
--- NOTE | 2018-01-08 21:49 | HP ---
HISTORY AND PHYSICAL CHIEF COMPLAINT: Abdominal pain in the abdomen. HISTORY OF PRESENT ILLNESS: This 72-year-old gentleman with a past medical history of multiple medical problems, including history of CVA, TIA, COPD, diabetes, hypertension, hyperlipidemia and syncope, being followed by Dr. Azul in [facility]. The patient is legally blind secondary to complication of glaucoma. The patient is complaining of not acting right today and has abdominal pain. The patient came to [facility], admitted for further evaluation and treatment and a CT scan of the abdomen and pelvis was done that showed evidence of gallstones and spondylotic changes and no evidence of renal stones or obstruction was noted. There is no history of fever, rigors. No history of headache, loss of consciousness, seizures. PAST MEDICAL HISTORY: History of COPD, CVA, TIA, diabetes mellitus, hypertension, hyperlipidemia, syncope. MEDICATIONS PRIOR TO ADMISSION: Include home medications are: 1. Albuterol 2.5 every 6 hours p.r.n. 2. Tylenol Arthritis. 3. Humalog q.i.d. 4. Glucophage 500 mg b.i.d. 5. Lopressor 25 mg b.i.d. 6. DuoNeb q.i.d. and p.r.n. 7. Pulmicort 1 mg b.i.d. 8. Vitamin D3 2000. 9. Protonix 40 mg daily. 10.Prinivil 5 mg p.o. daily. 11.Lasix 40 mg daily. 12.Iron sulfate 320 mg p.o. daily. 13.Celexa 20 mg p.o. daily. 14.Aspirin 81 mg p.o. daily. ALLERGIES: HYDROCODONE. FAMILY HISTORY: History of diabetes mellitus in the family. SOCIAL HISTORY: Previous history of smoking. No history of current smoking or alcohol intake. REVIEW OF SYSTEMS: ENT: As mentioned earlier. CARDIOVASCULAR: No angina, palpitations. RESPIRATORY: As mentioned earlier. GI: As mentioned earlier. : As mentioned earlier. NERVOUS: As mentioned earlier. ALLERGY/IMMUNOLOGY: No asthma or hay fever. MUSCULOSKELETAL: As mentioned earlier. HEMATOLOGY/ONCOLOGY: No history of anemia. ENDOCRINE: No history of diabetes mellitus. CONSTITUTIONAL: As mentioned earlier. DERMATOLOGY: Negative. RHEUMATOLOGY: Negative. PSYCHIATRY: As mentioned earlier. PHYSICAL EXAMINATION: Alert, oriented x3. The pulse is 87. Blood pressure 158/87, respirations 18, temperature 97.8, pulse ox 98% on room air. HEENT: Conjunctivae normal. Oral mucosa moist. NECK: No jugular venous distention. No carotid bruits. No lymph node enlargement. CARDIOVASCULAR: S1, S2 muffled. RESPIRATORY: Breath sounds diminished in the bases. A few scattered rhonchi. No crackles. ABDOMEN: Soft, obese. Mild diffuse tenderness. No guarding. No mass palpable and no ascites. Bowel sounds present. LEGS: No edema. No swelling. NERVOUS SYSTEM: Higher functions as mentioned earlier. Moves all 4 limbs. No focal motor or sensory deficits. Bilaterally legally blind because of corneal opacities. LYMPHATIC: No lymphadenopathy in neck or axillae. SKIN: No ulcer, rash or bleeding. LABS: At this time shows WBC 11.3, hemoglobin is 12.5. Glucose 128. ASSESSMENT: 1. Abdominal pain for evaluation, possibly rule out cholelithiasis. Chronic obstructive pulmonary disease acute exacerbation . 2. Increased lipase. 3. Increased WBC. 4. Anemia of chronic disease. 5. Cerebrovascular accident, transient ischemic attack. 6. Diabetes mellitus type 2. 7. Chronic obstructive pulmonary disease. 8. Hypertension. 9. History of syncope. 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 11.Old T12 compression fracture. RECOMMENDATION AND DISCUSSION: In this 72-year-old gentleman who presented with multiple medical problems, we will monitor the patient closely, continue the current medical management and symptomatic treatment. Otherwise at this time, I recommend symptomatic treatment for the pain and ultrasound of the abdomen, UA with micro. Prognosis guarded because of multiple complex medical issues. Further recommendations to follow and will also obtain a surgical evaluation. MMODL / IJN: [id number] / MTDD
[2018-01-08] MEDS: 0.9% NACL WITH KCL 20 MEQ/L 1,000 ML with MVI, ADULT NO.4 WITH VIT K 10 ML, THIAMINE 10... IV SCH ×4 (21:59)
[2018-01-08] MEDS: BUDESONIDE 1 MG/2 ML NEBU INHALATION SCH (22:08)
[2018-01-08] MEDS: IPRATROPIUM-ALBUTEROL 3 ML NEB INHALATION SCH (22:09)
[2018-01-08] MEDS ORDERED: ONDANSETRON 4 MG/2 ML VIAL IVP PRN (22:24)
[2018-01-08] MEDS ORDERED: SODIUM CHLORIDE 0.9% 1,000 ML IV ONE (22:25)
[2018-01-08 22:40] LABS: Glucose,Whole Blood 221 mg/dL (75-99)
[2018-01-09] MEDS: INSULIN ASPART 100 UNIT/ML 1 ML 10 ML VIAL SQ SCH ×5 (00:38→21:43)
[2018-01-09] MEDS: HEPARIN SODIUM,PORCINE 5,000 UNIT/ML 1 ML VIAL SQ SCH ×3 (01:01→19:58)
[2018-01-09 02:34] LABS: Hemoglobin A1C 6.6 % (4.0-6.0)
[2018-01-09 05:54] LABS: Basophils % (A) 0 %; Eosinophils % (A) 0 %; HCT 41.4 % (39.0-53.0); HGB 13.5 gm/dL (13.0-17.5); Lymphocytes # (A) 0.6 k/uL (1.0-4.8); Lymphocytes % (A) 6 %; MCH 29.4 pg (25.0-35.0); MCHC 32.7 g/dL (31.0-37.0); MCV 89.8 fL (80.0-100.0); Mean Platelet Volume 7.1; Monocytes # (A) 0.5 k/uL (0-1.0); Monocytes % (A) 5 %; Neutrophils # (A) 8.5 k/uL (1.3-7.7); Neutrophils % (A) 88 %; Platelet Count 278 k/uL (150-450); RDW 12.9 % (11.5-15.5); WBC 9.6 k/uL (3.8-10.6)
[2018-01-09 06:03] LABS: Calcium 8.3 mg/dL (8.4-10.2)
[2018-01-09 06:08] LABS: Potassium 5.1 mmol/L (3.5-5.1)
[2018-01-09 06:25] LABS: Glucose,Whole Blood 250 mg/dL (75-99)
[2018-01-09] MEDS: BUDESONIDE 1 MG/2 ML NEBU INHALATION SCH ×2 (08:29→20:21)
[2018-01-09] MEDS: IPRATROPIUM-ALBUTEROL 3 ML NEB INHALATION SCH ×7 (08:29→20:28)
[2018-01-09] MEDS: LISINOPRIL 5 MG TAB PO SCH (09:11)
[2018-01-09] MEDS: PANTOPRAZOLE 40 MG/10 ML VIAL IVP SCH (09:11)
[2018-01-09] MEDS: CHOLECALCIFEROL 1,000 UNIT TAB PO SCH (09:11)
[2018-01-09] MEDS: CITALOPRAM HYDROBROMIDE 10 MG TAB PO SCH (09:11)
[2018-01-09] MEDS: metFORMIN 500 MG TAB PO SCH ×2 (09:11→17:07)
[2018-01-09] MEDS: FUROSEMIDE 40 MG TAB PO SCH (09:11)
[2018-01-09] MEDS: METOPROLOL TARTRATE 25 MG TAB PO SCH ×2 (09:13→17:07)
[2018-01-09] MEDS: cefTRIAXone IN SWFI 1,000 MG/10 ML SYRINGE IVP SCH (11:49)
[2018-01-09 12:07] LABS: Glucose,Whole Blood 172 mg/dL (75-99)
--- NOTE | 2018-01-09 13:11 | P.GSCN ---
<Julieta Wing - Last Filed: 01/09/18 13:11> History of Present Illness Consult date: 01/09/18 Reason for Consult: Gallstone ultrasound noted History of present illness: 72-year-old male being seen at the request of the attending for a surgical eval and the patient who had a computed tomography scan abdomen and pelvis showed evidence of gallstones. Patient is a poor historian not able to adequately provide healthcare history. Healthcare has been obtained from reviewing prior medical records interviewing patient and staff. Currently no family at bedside. Patient resigned sinus ECF facility under residential care Was transferred from the ECF facility after patient was noted to not be acting right. According to the care providers it was a decrease in activity. There was nausea sensation no vomiting and patient was experiencing right upper quadrant abdominal pain. At the time of this exam patient did indicate by yelling out it hurts upon palpitating the right upper quadrant CAT scan of the abdomen pelvis without contrast on admission report reviewed showed no evidence of a pancreatic mass no evidence of a renal stone obstructive gallstone ultrasound of the gallbladder report indicate gallstones seen largest measuring 2.5 cm with wall thickening and a small amount of fluid Patient does have a past medical history of CVA, COPD, hypertension, hyperlipidemia dementia Past surgical history none reported Review of Systems not able to obtain no recall 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; right sided deficits from previous stroke, bronchitis, hx of falls. ddd, old t12 compression fx, spopndylothesis ( per chest xray), wears attend,incont stool/urine. bed bound w / assist to chair. per [facility]- pt's baseline is alert,cooperative and knows person/place and normally he has a very good appetite-"they know he not feeling well when he does'nt feel like eating". History of Any Multi-Drug Resistant Organisms: None Reported Past Surgical History: No Surgical Hx Reported Additional Past Surgical History / Comment(s): unknown Past Anesthesia/Blood Transfusion Reactions: No Reported Reaction Past Psychological History: No Psychological Hx Reported Additional Psychological History / Comment(s): Pt currently at [facility]. before going to [facility] he has living with nonfamily member caregiver . He is legally blind bilaterally. Smoking Status: Former smoker Past Alcohol Use History: None Reported Additional Past Alcohol Use History / Comment(s): started smoking about 1965 and quit in 2012 Past Drug Use History: None Reported - Past Family History Father Family Medical History: Diabetes Mellitus Mother Family Medical History: Dementia, Diabetes Mellitus Brother(s) Family Medical History: Unable to Obtain Medications and Allergies Home Medications Medication Instructions Recorded Confirmed Type metFORMIN HCL [Glucophage] 500 mg PO BID@0900,1700 05/05/16 01/08/18 History Albuterol Nebulized [Ventolin 2.5 mg INHALATION RT-Q6H PRN 08/11/17 01/08/18 History Nebulized] Aspirin 81 mg PO DAILY@0900 08/11/17 01/08/18 History Lisinopril [Prinivil] 5 mg PO DAILY@0900 08/11/17 01/08/18 History Metoprolol Tartrate [Lopressor] 25 mg PO BID@0900,1700 08/11/17 01/08/18 History Ipratropium-Albuterol Nebulize 3 ml INHALATION RT-QID ampul.neb 08/13/17 Rx [Duoneb 0.5 mg-3 mg/3 ml Soln] Acetaminophen [Tylenol Arthritis] 650 mg PO Q6H PRN 08/20/17 01/08/18 History Pantoprazole [Protonix] 40 mg PO DAILY 08/20/17 01/08/18 History Furosemide [Lasix] 40 mg PO DAILY #1 tablet 08/29/17 01/08/18 Rx Budesonide [Pulmicort] 1 mg INHALATION RT-BID 01/08/18 01/08/18 History Cholecalciferol (Vitamin D3) 2,000 unit PO DAILY 01/08/18 01/08/18 History [Vitamin D3] Citalopram Hydrobromide [CeleXA] 10 mg PO DAILY 01/08/18 01/08/18 History Ferrous Sulfate [Feosol] 325 mg PO DAILY 01/08/18 01/08/18 History Insulin Lispro [humaLOG Kwikpen] See Protocol SQ QID 01/08/18 01/08/18 History Allergies Allergy/AdvReac Type Severity Reaction Status Date / Time hydrocodone bitartrate AdvReac Nausea Verified 01/08/18 15:29 [From Vicodin] Surgical - Exam Vital Signs Temp Pulse Resp BP Pulse Ox 97.9 F 77 16 144/64 99 01/08/18 15:23 01/08/18 15:23 01/08/18 15:23 01/08/18 15:23 01/08/18 15:23 GENERAL APPEARANCE: 72 year old male patient is alert, oriented, in no acute distress.legally blind resting in bed VITAL SIGNS: Reviewed HEENT: Head is normocephalic and atraumatic. Pupils are equal and reactive. The nares are patent. Oropharynx is clear without lesions. NECK: Supple without lymphadenopathy. Traches midline. HEART: S1, S2. Regular rate and rhythm. Heart rate in the 90s LUNGS: No crackles or wheezes are heard. No cough no shortness of breath ABDOMEN: Soft, nontender, nondistended with good bowel sounds. No peritoneal signs. No palpable organomegaly or masses. Fecal management system in place moderate amount of liquid stool EXTREMITIES: Normal skin color and turgor. Right side weaknes no edema noted Results - Labs 01/09/18 05:41 01/09/18 05:41 Abnormal Lab Results - Last 24 Hours (Table) 01/08/18 01/08/18 01/08/18 Range/Units 15:35 15:35 15:35 WBC 11.3 H (3.8-10.6) k/uL RBC 4.26 L (4.30-5.90) m/uL Hgb 12.5 L (13.0-17.5) gm/dL Hct 37.4 L (39.0-53.0) % Neutrophils # 8.8 H (1.3-7.7) k/uL Lymphocytes # (1.0-4.8) k/uL BUN 38 H (9-20) mg/dL Creatinine (0.66-1.25) mg/dL Glucose 120 H (74-99) mg/dL POC Glucose (mg/dL) (75-99) mg/dL Hemoglobin A1c 6.6 H (4.0-6.0) % Calcium (8.4-10.2) mg/dL AST 86 H (17-59) U/L Total Protein 6.2 L (6.3-8.2) g/dL Lipase 312 H (23-300) U/L 01/08/18 01/09/18 01/09/18 Range/Units 22:39 05:41 05:41 WBC (3.8-10.6) k/uL RBC (4.30-5.90) m/uL Hgb (13.0-17.5) gm/dL Hct (39.0-53.0) % Neutrophils # 8.5 H (1.3-7.7) k/uL Lymphocytes # 0.6 L (1.0-4.8) k/uL BUN 38 H (9-20) mg/dL Creatinine 1.30 H (0.66-1.25) mg/dL Glucose 249 H (74-99) mg/dL POC Glucose (mg/dL) 221 H (75-99) mg/dL Hemoglobin A1c (4.0-6.0) % Calcium 8.3 L (8.4-10.2) mg/dL AST (17-59) U/L Total Protein (6.3-8.2) g/dL Lipase (23-300) U/L 01/09/18 01/09/18 Range/Units 06:23 11:46 WBC (3.8-10.6) k/uL RBC (4.30-5.90) m/uL Hgb (13.0-17.5) gm/dL Hct (39.0-53.0) % Neutrophils # (1.3-7.7) k/uL Lymphocytes # (1.0-4.8) k/uL BUN (9-20) mg/dL Creatinine (0.66-1.25) mg/dL Glucose (74-99) mg/dL POC Glucose (mg/dL) 250 H 172 H (75-99) mg/dL Hemoglobin A1c (4.0-6.0) % Calcium (8.4-10.2) mg/dL AST (17-59) U/L Total Protein (6.3-8.2) g/dL Lipase (23-300) U/L Diabetes panel 01/08/18 01/08/18 01/09/18 Range/Units 15:35 15:35 05:41 Sodium 138 137 (137-145) mmol/L Potassium 4.6 5.1 (3.5-5.1) mmol/L Chloride 101 106 (98-107) mmol/L Carbon Dioxide 27 24 (22-30) mmol/L BUN 38 H 38 H (9-20) mg/dL Creatinine 1.20 1.30 H (0.66-1.25) mg/dL Glucose 120 H 249 H (74-99) mg/dL Hemoglobin A1c 6.6 H (4.0-6.0) % Calcium 8.8 8.3 L (8.4-10.2) mg/dL AST 86 H (17-59) U/L ALT 50 (21-72) U/L Alkaline Phosphatase 122 (38-126) U/L Total Protein 6.2 L (6.3-8.2) g/dL Albumin 3.7 (3.5-5.0) g/dL Calcium panel 01/08/18 01/09/18 Range/Units 15:35 05:41 Calcium 8.8 8.3 L (8.4-10.2) mg/dL Albumin 3.7 (3.5-5.0) g/dL Pituitary panel 01/08/18 01/09/18 Range/Units 15:35 05:41 Sodium 138 137 (137-145) mmol/L Potassium 4.6 5.1 (3.5-5.1) mmol/L Chloride 101 106 (98-107) mmol/L Carbon Dioxide 27 24 (22-30) mmol/L BUN 38 H 38 H (9-20) mg/dL Creatinine 1.20 1.30 H (0.66-1.25) mg/dL Glucose 120 H 249 H (74-99) mg/dL Calcium 8.8 8.3 L (8.4-10.2) mg/dL Adrenal panel 01/08/18 01/09/18 Range/Units 15:35 05:41 Sodium 138 137 (137-145) mmol/L Potassium 4.6 5.1 (3.5-5.1) mmol/L Chloride 101 106 (98-107) mmol/L Carbon Dioxide 27 24 (22-30) mmol/L BUN 38 H 38 H (9-20) mg/dL Creatinine 1.20 1.30 H (0.66-1.25) mg/dL Glucose 120 H 249 H (74-99) mg/dL Calcium 8.8 8.3 L (8.4-10.2) mg/dL Total Bilirubin 0.6 (0.2-1.3) mg/dL AST 86 H (17-59) U/L ALT 50 (21-72) U/L Alkaline Phosphatase 122 (38-126) U/L Total Protein 6.2 L (6.3-8.2) g/dL Albumin 3.7 (3.5-5.0) g/dL Assessment and Plan Assessment: Impression 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 Visual deficit legally blind bilaterally due to consultations of glaucoma Present on admission right upper quadrant abdominal pain suspect due to gallstones as evident on an ultrasound of the gallbladder largest gallstone measures 2.5cm Present on admission decrease appetite nausea abdominal pain right quadrant likely due to cholelithiasis Sinus tachycardia Hypertension plan Further surgical recommendations after dr wang evmario Pain control Send stool for C. diff DVT and GI prophylaxis PT OT eval CMP now Surgical consultation note dictated for Dr. wang The above impression and plan of care have been discussed and directed by signing physician. Julieta Wing nurse practitioner acting as scribe for signing physician. <Doug Wang - Last Filed: 01/09/18 18:58> Surgical - Exam Vital Signs Temp Pulse Resp BP Pulse Ox 97.9 F 77 16 144/64 99 01/08/18 15:23 01/08/18 15:23 01/08/18 15:23 01/08/18 15:23 01/08/18 15:23 Results - Labs 01/09/18 05:41 01/09/18 13:32 Abnormal Lab Results - Last 24 Hours (Table) 01/08/18 01/08/18 01/09/18 Range/Units 15:35 22:39 05:41 Neutrophils # 8.5 H (1.3-7.7) k/uL Lymphocytes # 0.6 L (1.0-4.8) k/uL BUN (9-20) mg/dL Creatinine (0.66-1.25) mg/dL Glucose (74-99) mg/dL POC Glucose (mg/dL) 221 H (75-99) mg/dL Hemoglobin A1c 6.6 H (4.0-6.0) % Calcium (8.4-10.2) mg/dL AST (17-59) U/L ALT (21-72) U/L Alkaline Phosphatase (38-126) U/L 01/09/18 01/09/18 01/09/18 Range/Units 05:41 06:23 11:46 Neutrophils # (1.3-7.7) k/uL Lymphocytes # (1.0-4.8) k/uL BUN 38 H (9-20) mg/dL Creatinine 1.30 H (0.66-1.25) mg/dL Glucose 249 H (74-99) mg/dL POC Glucose (mg/dL) 250 H 172 H (75-99) mg/dL Hemoglobin A1c (4.0-6.0) % Calcium 8.3 L (8.4-10.2) mg/dL AST (17-59) U/L ALT (21-72) U/L Alkaline Phosphatase (38-126) U/L 01/09/18 01/09/18 Range/Units 13:32 16:17 Neutrophils # (1.3-7.7) k/uL Lymphocytes # (1.0-4.8) k/uL BUN 37 H (9-20) mg/dL Creatinine 1.38 H (0.66-1.25) mg/dL Glucose 182 H (74-99) mg/dL POC Glucose (mg/dL) 159 H (75-99) mg/dL Hemoglobin A1c (4.0-6.0) % Calcium (8.4-10.2) mg/dL AST 117 H (17-59) U/L ALT 139 H (21-72) U/L Alkaline Phosphatase 158 H (38-126) U/L Diabetes panel 01/08/18 01/09/18 01/09/18 Range/Units 15:35 05:41 13:32 Sodium 137 141 (137-145) mmol/L Potassium 5.1 4.6 (3.5-5.1) mmol/L Chloride 106 107 (98-107) mmol/L Carbon Dioxide 24 22 (22-30) mmol/L BUN 38 H 37 H (9-20) mg/dL Creatinine 1.30 H 1.38 H (0.66-1.25) mg/dL Glucose 249 H 182 H (74-99) mg/dL Hemoglobin A1c 6.6 H (4.0-6.0) % Calcium 8.3 L 8.8 (8.4-10.2) mg/dL AST 117 H (17-59) U/L ALT 139 H (21-72) U/L Alkaline Phosphatase 158 H (38-126) U/L Total Protein 6.5 (6.3-8.2) g/dL Albumin 3.7 (3.5-5.0) g/dL Calcium panel 01/09/18 01/09/18 Range/Units 05:41 13:32 Calcium 8.3 L 8.8 (8.4-10.2) mg/dL Albumin 3.7 (3.5-5.0) g/dL Pituitary panel 01/09/18 01/09/18 Range/Units 05:41 13:32 Sodium 137 141 (137-145) mmol/L Potassium 5.1 4.6 (3.5-5.1) mmol/L Chloride 106 107 (98-107) mmol/L Carbon Dioxide 24 22 (22-30) mmol/L BUN 38 H 37 H (9-20) mg/dL Creatinine 1.30 H 1.38 H (0.66-1.25) mg/dL Glucose 249 H 182 H (74-99) mg/dL Calcium 8.3 L 8.8 (8.4-10.2) mg/dL Adrenal panel 01/09/18 01/09/18 Range/Units 05:41 13:32 Sodium 137 141 (137-145) mmol/L Potassium 5.1 4.6 (3.5-5.1) mmol/L Chloride 106 107 (98-107) mmol/L Carbon Dioxide 24 22 (22-30) mmol/L BUN 38 H 37 H (9-20) mg/dL Creatinine 1.30 H 1.38 H (0.66-1.25) mg/dL Glucose 249 H 182 H (74-99) mg/dL Calcium 8.3 L 8.8 (8.4-10.2) mg/dL Total Bilirubin 0.7 (0.2-1.3) mg/dL AST 117 H (17-59) U/L ALT 139 H (21-72) U/L Alkaline Phosphatase 158 H (38-126) U/L Total Protein 6.5 (6.3-8.2) g/dL Albumin 3.7 (3.5-5.0) g/dL Assessment and Plan Assessment: As above. Patient having both pain and tenderness in the right upper quadrant with ultrasound findings suggestive of acute cholecystitis. The patient is not able to carry on a discussion regarding this problem with his. I tried to contact his legal guardian at 2 different phone numbers and received a answering service. Also placed a call to the hospitalist and left a message. We'll tentatively plan laparoscopic, possible open cholecystectomy tomorrow. We 'll repeat labs tomorrow as the patient's transaminases and alkaline phosphatase increased somewhat today. Continue antibiotics.
[2018-01-09 14:27] LABS: Albumin 3.7 g/dL (3.5-5.0); Calcium 8.8 mg/dL (8.4-10.2); Potassium 4.6 mmol/L (3.5-5.1); Total Bilirubin 0.7 mg/dL (0.2-1.3); Total Protein 6.5 g/dL (6.3-8.2)
[2018-01-09 16:36] LABS: Glucose,Whole Blood 159 mg/dL (75-99)
--- NOTE | 2018-01-09 16:44 | PN ---
PROGRESS NOTE DATE OF SERVICE: 01/09/2018. INTERVAL HISTORY: This 73-year-old gentleman who was admitted with abdominal pain and COPD also suspected to have pneumonitis also. The patient also had significant gallstones as well. Surgical evaluation in progress at this time. PAST MEDICAL HISTORY: Reviewed. REVIEW OF SYSTEMS: Cardiovascular: No angina of palpitations. Respiration: As mentioned earlier. GI: As mentioned earlier. : No dysuria. Central nervous system: No numbness or weakness. MEDICATIONS ARE: Reviewed and include: 1. Zestril 5 mg daily. 2. Lopressor 25 mg p.o. b.i.d. 3. Zofran. 4. Tylenol p.r.n. 5. Ventolin q.6h p.r.n. 6. DuoNeb q.i.d. 7. Pulmicort. 8. Rocephin. 9. Celexa. 10.Lasix. 11.Glucophage 500 mg p.o. b.i.d. 12.Protonix. 13.Heparin. PHYSICAL EXAM: GENERAL: Patient is alert, oriented x3. The pulse is 83, blood pressure is respiration 18, temperature 97.2, pulse ox 97% on room air. HEENT: Conjunctivae normal. Oral mucosa moist. NECK: No jugular venous distention. No carotid bruit. No lymph node enlargement. CARDIOVASCULAR: S1, S2 muffled. RESPIRATORY: Breath sounds diminished in the bases. A few scattered rhonchi and crackles. ABDOMEN: Soft, obese, mild diffuse tenderness in the right upper quadrant. No guarding. No rigidity. No mass palpable. LEGS: No edema. No swelling. CENTRAL NERVOUS SYSTEM: Diffusely weak. ASSESSMENT: 1. Abdominal pain, possible acute cholelithiasis. 2. Chronic obstructive pulmonary disease acute exacerbation with acute purulent tracheobronchitis. 3. Increased lipase. 4. Increased WBC. 5. Anemia of chronic disease. 6. Cerebrovascular accident, transient ischemic attack. 7. Diabetes mellitus type 2. 8. 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 9. Hypertension. 10.History of syncope. 11.Old T12 compression fracture. 12.FULL CODE. RECOMMENDATIONS AND DISCUSSION: In this 72-year-old gentleman who presented with multiple complex medical issues, we will monitor the patient closely, continue the current medications, management and symptomatic treatment of the pain. I would also recommend proton pump inhibitors. Surgical consultation has been recommended for evaluation to evaluate cholelithiasis and possible surgery. Otherwise, we will optimize bronchodilators for the COPD and empiric antibiotics initiated. I would also recommend Dr. Sharma consultation. DVT prophylaxis will be continued and the rest of the home medications will be continued. Prognosis guarded because of multiple complex medical issues. This patient will require more than 2 nights hospital stay to treat and evaluate and treat above-mentioned life- threatening medical/surgical conditions. MMODL / IJN: [id number] /
[2018-01-09] MEDS: 0.9% NACL WITH KCL 20 MEQ/L 1,000 ML with MVI, ADULT NO.4 WITH VIT K 10 ML, THIAMINE 10... IV SCH ×4 (16:47)
--- NOTE | 2018-01-09 18:31 | XR ---
EXAMINATION TYPE: XR chest 2V DATE OF EXAM: 01/09/2018 COMPARISON: 01/08/2018 HISTORY: Weakness TECHNIQUE: Frontal and lateral views of the chest are obtained. FINDINGS: There is poor expiration. There is no heart failure nor confluent pneumonic infiltrate. Co stophrenic angles are clear. IMPRESSION: Poor inspiration that is worse than old exam. Normal heart.
[2018-01-09] MEDS: ACETAMINOPHEN TAB 325 MG TAB PO PRN (20:04)
[2018-01-09 20:51] LABS: Glucose,Whole Blood 166 mg/dL (75-99)
[2018-01-10 06:09] LABS: Glucose,Whole Blood 162 mg/dL (75-99)
[2018-01-10 06:16] LABS: Glucose,Whole Blood 161 mg/dL (75-99)
[2018-01-10 06:28] LABS: Basophils % (A) 0 %; Eosinophils % (A) 0 %; HCT 39.7 % (39.0-53.0); HGB 12.9 gm/dL (13.0-17.5); Lymphocytes % (A) 7 %; MCH 29.1 pg (25.0-35.0); MCHC 32.6 g/dL (31.0-37.0); MCV 89.2 fL (80.0-100.0); Mean Platelet Volume 7.1; Monocytes # (A) 1.1 k/uL (0-1.0); Monocytes % (A) 8 %; Neutrophils # (A) 11.6 k/uL (1.3-7.7); Neutrophils % (A) 84 %; Platelet Count 246 k/uL (150-450); RBC 4.45 m/uL (4.30-5.90); RDW 12.8 % (11.5-15.5); WBC 13.9 k/uL (3.8-10.6)
[2018-01-10] MEDS: INSULIN ASPART 100 UNIT/ML 1 ML 10 ML VIAL SQ SCH ×4 (06:33→20:50)
[2018-01-10 06:34] LABS: Albumin 3.4 g/dL (3.5-5.0); Calcium 8.5 mg/dL (8.4-10.2); Potassium 4.2 mmol/L (3.5-5.1); Total Bilirubin 0.8 mg/dL (0.2-1.3)
[2018-01-10] MEDS: IPRATROPIUM-ALBUTEROL 3 ML NEB INHALATION SCH ×9 (07:54→20:26)
[2018-01-10] MEDS: BUDESONIDE 1 MG/2 ML NEBU INHALATION SCH ×2 (07:54→20:17)
[2018-01-10] MEDS: 0.9% NACL WITH KCL 20 MEQ/L 1,000 ML with MVI, ADULT NO.4 WITH VIT K 10 ML, THIAMINE 10... IV SCH ×8 (08:55→23:50)
[2018-01-10] MEDS: cefTRIAXone IN SWFI 1,000 MG/10 ML SYRINGE IVP SCH (08:56)
[2018-01-10] MEDS: METOPROLOL TARTRATE 25 MG TAB PO SCH ×4 (08:59→22:41)
[2018-01-10] MEDS: metFORMIN 500 MG TAB PO SCH ×2 (09:28→15:08)
[2018-01-10] MEDS ORDERED: MORPHINE SULFATE 4 MG/ML SYRINGE IVP PRN ×2 (09:44→09:47)
--- NOTE | 2018-01-10 10:46 | P.PN ---
<MaciejHeikeJulieta M - Last Filed: 01/10/18 10:36> Subjective Progress Note Date: 01/10/18 72-year-old male seen at bedside this morning pleasantly confused facial grimace with palpitation to the right upper abdominal wall. Abdomen nondistended positive tenderness right upper quadrant persist no family at bedside nursing reports did obtain consent from public guardian to proceed with surgical procedure lap cholecystectomy if indicated. Did note patient tachycardic heart rate in the 100s medicine following. Patients being followed by surgical service for right upper quadrant pain with an ultrasound suggestive of acute cholecystitis tentatively laparoscopic possible open cholecystectomy Objective - Vital Signs Vital signs: Vital Signs Temp 99.6 F 01/10/18 10:15 Pulse 118 H 01/10/18 10:15 Resp 18 01/10/18 09:35 BP 161/87 01/10/18 10:15 Pulse Ox 94 L 01/10/18 09:35 Intake & Output 01/09/18 01/10/18 01/10/18 18:59 06:59 18:59 Intake Total 350 20 Output Total 300 Balance 50 20 Weight 76.5 kg Intake: IV 20 Invasive Line 1 10 Invasive Line 2 10 Oral 350 Output: Stool 300 Other: Voiding Method Diaper Diaper Diaper # Voids 2 - Exam Physical exam 72-year-old male resting in bed oriented to self and place Lungs posterior diminished at the bases on room air sats 94% Heart S1-S2 audible tachycardic Abdomen positive tenderness to the right upper quadrant nondistended bowel tones present positive stooling incontinent urine incontinent urine Extremities right side weakness no pedal edema - Labs CBC & Chem 7: 01/10/18 05:43 01/10/18 05:43 Labs: Abnormal Lab Results - Last 24 Hours (Table) 01/09/18 01/09/18 01/09/18 Range/Units 11:46 13:32 16:17 WBC (3.8-10.6) k/uL Hgb (13.0-17.5) gm/dL Neutrophils # (1.3-7.7) k/uL Monocytes # (0-1.0) k/uL Chloride (98-107) mmol/L BUN 37 H (9-20) mg/dL Creatinine 1.38 H (0.66-1.25) mg/dL Glucose 182 H (74-99) mg/dL POC Glucose (mg/dL) 172 H 159 H (75-99) mg/dL AST 117 H (17-59) U/L ALT 139 H (21-72) U/L Alkaline Phosphatase 158 H (38-126) U/L Troponin I (0.000-0.034) ng/mL Total Protein (6.3-8.2) g/dL Albumin (3.5-5.0) g/dL 01/09/18 01/10/18 01/10/18 Range/Units 20:49 05:43 05:43 WBC 13.9 H (3.8-10.6) k/uL Hgb 12.9 L (13.0-17.5) gm/dL Neutrophils # 11.6 H (1.3-7.7) k/uL Monocytes # 1.1 H (0-1.0) k/uL Chloride 108 H (98-107) mmol/L BUN 35 H (9-20) mg/dL Creatinine (0.66-1.25) mg/dL Glucose 167 H (74-99) mg/dL POC Glucose (mg/dL) 166 H (75-99) mg/dL AST (17-59) U/L ALT 95 H (21-72) U/L Alkaline Phosphatase 128 H (38-126) U/L Troponin I (0.000-0.034) ng/mL Total Protein 6.0 L (6.3-8.2) g/dL Albumin 3.4 L (3.5-5.0) g/dL 01/10/18 01/10/18 01/10/18 Range/Units 05:43 05:57 06:14 WBC (3.8-10.6) k/uL Hgb (13.0-17.5) gm/dL Neutrophils # (1.3-7.7) k/uL Monocytes # (0-1.0) k/uL Chloride (98-107) mmol/L BUN (9-20) mg/dL Creatinine (0.66-1.25) mg/dL Glucose (74-99) mg/dL POC Glucose (mg/dL) 162 H 161 H (75-99) mg/dL AST (17-59) U/L ALT (21-72) U/L Alkaline Phosphatase (38-126) U/L Troponin I 0.182 H* (0.000-0.034) ng/mL Total Protein (6.3-8.2) g/dL Albumin (3.5-5.0) g/dL Microbiology - Last 24 Hours (Table) 01/08/18 22:27 Blood Culture - Preliminary Blood No Growth after 24 hours Assessment and Plan Assessment: Impression Present on admission right upper quadrant abdominal pain with an ultrasound of the abdomen likely due to acute cholecystitis 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 Visual deficit legally blind bilaterally due to consultations of glaucoma Present on admission right upper quadrant abdominal pain suspect due to gallstones as evident on an ultrasound of the gallbladder largest gallstone measures 2.5cm Present on admission decrease appetite nausea abdominal pain right quadrant likely due to cholecystitis acute Sinus tachycardia Hypertension plan Defer to the attending to address medical issues Tentatively scheduled for a laparoscopic possible open cholecystectomy when medically cleared IV Zosyn as ordered Pain control DVT and GI prophylaxis PT OT eval IV fluid as ordered The above impression and plan of care have been discussed and directed by signing physician. Julieta Wing nurse practitioner acting as scribe for signing physician. <Doug Salomon - Last Filed: 01/10/18 15:46> Objective - Vital Signs Vital signs: Vital Signs Temp 99.6 F 01/10/18 15:08 Pulse 92 01/10/18 15:41 Resp 18 01/10/18 15:08 BP 171/84 01/10/18 15:08 Pulse Ox 94 L 01/10/18 15:08 Intake & Output 01/09/18 01/10/18 01/10/18 18:59 06:59 18:59 Intake Total 350 410 Output Total 300 600 Balance 50 -190 Weight 76.5 kg Intake: IV 410 0.9% NaCl with KCl 20 Meq 300 /l 1,000 ml @ 60 mls/hr IV .[id number] EKATERINA with Mvi, Adult No.4 with Vit K 10 ml with Thiamine 100 mg with Folic Acid 1 mg Rx#: [id number] Invasive Line 1 30 Invasive Line 2 30 Piperacillin-Tazobactam 3 50 .375 gm In Dextrose/Water 1 50ml.bag @ 12.5 mls/hr IVPB Q8HR EKATERINA Rx#: [id number] Oral 350 Output: Stool 300 600 Other: Voiding Method Diaper Diaper Diaper # Voids 2 - Labs CBC & Chem 7: 01/10/18 05:43 01/10/18 05:43 Labs: Abnormal Lab Results - Last 24 Hours (Table) 01/09/18 01/09/18 01/10/18 Range/Units 16:17 20:49 05:43 WBC 13.9 H (3.8-10.6) k/uL Hgb 12.9 L (13.0-17.5) gm/dL Neutrophils # 11.6 H (1.3-7.7) k/uL Monocytes # 1.1 H (0-1.0) k/uL Chloride (98-107) mmol/L BUN (9-20) mg/dL Glucose (74-99) mg/dL POC Glucose (mg/dL) 159 H 166 H (75-99) mg/dL ALT (21-72) U/L Alkaline Phosphatase (38-126) U/L Troponin I (0.000-0.034) ng/mL Total Protein (6.3-8.2) g/dL Albumin (3.5-5.0) g/dL 01/10/18 01/10/18 01/10/18 Range/Units 05:43 05:43 05:57 WBC (3.8-10.6) k/uL Hgb (13.0-17.5) gm/dL Neutrophils # (1.3-7.7) k/uL Monocytes # (0-1.0) k/uL Chloride 108 H (98-107) mmol/L BUN 35 H (9-20) mg/dL Glucose 167 H (74-99) mg/dL POC Glucose (mg/dL) 162 H (75-99) mg/dL ALT 95 H (21-72) U/L Alkaline Phosphatase 128 H (38-126) U/L Troponin I 0.182 H* (0.000-0.034) ng/mL Total Protein 6.0 L (6.3-8.2) g/dL Albumin 3.4 L (3.5-5.0) g/dL 01/10/18 01/10/18 01/10/18 Range/Units 06:14 10:59 11:51 WBC (3.8-10.6) k/uL Hgb (13.0-17.5) gm/dL Neutrophils # (1.3-7.7) k/uL Monocytes # (0-1.0) k/uL Chloride (98-107) mmol/L BUN (9-20) mg/dL Glucose (74-99) mg/dL POC Glucose (mg/dL) 161 H 168 H (75-99) mg/dL ALT (21-72) U/L Alkaline Phosphatase (38-126) U/L Troponin I 0.134 H* (0.000-0.034) ng/mL Total Protein (6.3-8.2) g/dL Albumin (3.5-5.0) g/dL Microbiology - Last 24 Hours (Table) 01/08/18 22:27 Blood Culture - Preliminary Blood No Growth after 24 hours Assessment and Plan Assessment: As above. Patient still having abdominal pain. I discussed the case with Dr. Shin, Dr. Sharma, and Dr. Juan. They have cleared Denis for surgery with the suspected diagnosis of acute calculus cholecystitis. Consent was obtained from the legal guardian. Patient does present with moderate risk but given his hospital course and ongoing complaints of pain and tenderness it is felt that these risks are acceptable and necessary.
[2018-01-10] MEDS: FUROSEMIDE 40 MG TAB PO SCH (11:23)
[2018-01-10] MEDS: CITALOPRAM HYDROBROMIDE 10 MG TAB PO SCH (11:23)
[2018-01-10] MEDS: CHOLECALCIFEROL 1,000 UNIT TAB PO SCH (11:23)
[2018-01-10] MEDS: LISINOPRIL 5 MG TAB PO SCH (11:24)
[2018-01-10] MEDS: PANTOPRAZOLE 40 MG/10 ML VIAL IVP SCH (11:24)
[2018-01-10] MEDS: PIPERACILLIN-TAZOBACTAM 3.375 GM in DEXTROSE/WATER 1 50ML.BAG IVPB SCH ×3 (11:26→23:51)
[2018-01-10 11:53] LABS: Glucose,Whole Blood 168 mg/dL (75-99)
[2018-01-10] MEDS: HEPARIN SODIUM,PORCINE 5,000 UNIT/ML 1 ML VIAL SQ SCH ×2 (12:55→20:50)
--- NOTE | 2018-01-10 13:00 | CONS ---
CONSULTATION Mr. Barajas is a 72-year-old gentleman who is seen for cardiac evaluation. Patient is a rather poor historian. The history was mostly obtained from the patient's chart as well as from the nurse and emergency room records. The patient was brought to the emergency room because he was not acting right. He did have some decreased activity. He did not have any fever or chills or nausea. The patient did complain of some right upper quadrant pain in the emergency room. Subsequent evaluation while in the hospital reveals the patient has evidence of acute cholecystitis with gallstones. Patient did not complain of any chest pain during the test. Patient has a history of moderate degree of COPD, type 2 diabetes. There is no definite previous history of myocardial infarction. This patient has come in the past and the patient has had a borderline elevation in the troponin in the past. Initial EKG in the emergency room which showed evidence of sinus tachycardia. HOME MEDICATIONS: Include metformin 500 mg twice a day, lisinopril 5 mg daily, metoprolol 25 mg daily, Protonix 40 mg daily, ferrous sulfate and Lasix 40 mg daily. 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 No history of any other major surgeries. PHYSICAL EXAMINATION: The patient's vital signs in the emergency room were reviewed. Patient's initial EKG shows evidence of sinus tachycardia at a rate of 140. Patient's blood pressure was stable in the emergency room and oxygen saturation was 99%. [place] count [place] [address]. Physical examination at present reveals the patient has had a temperature of 99.4, heart rate is 100 per minute, respiratory rate is 18, blood pressure is 167/93 mmHg. His blood pressure has been running high in the last 24 hours. HEART: First and second heart sounds are normal. Lungs are clinically clear to auscultation and percussion. Abdomen has a mild right upper quadrant tenderness. Extremities, peripheral pulses are 2+. Patient's electrolytes are normal. The patient had elevated alkaline phosphate, SGOT and SGPT on the left as done yesterday. Creatinine is 1.38. FINAL IMPRESSION: 1. This patient has come with acute cholecystitis, patient did not complain of any chest pain during the test. 2. Patient has a mildly abnormal troponin which could be suggestive of type 2 myocardial injury in view of the supply and demand mismatch. Patient has a persistent sinus tachycardia. A low-grade fever and his blood pressure also has been elevated. There are no EKG changes suggestive of acute myocardial infarction. An echocardiogram reveals normal wall motion. The patient does carry the increased risk of surgery because of his multiple medical problems, as well as the diabetes but we do not have much option other than to proceed with cholecystectomy. At present his medical treatment is optimized. I will increase the dose of her Lopressor to 25 mg q.6 hourly and we will watch him carefully in next 24 hours post surgery to keep his oxygen saturation under control and prevent any significant tachycardia or rise in the blood pressure/. Thank you very much for letting me participate in the care of this nice gentleman. Patient's condition discussed with Dr. Salomon. KASHMIR / LIO: [id number] /
--- NOTE | 2018-01-10 13:11 | XR ---
EXAMINATION TYPE: XR chest 1V DATE OF EXAM: 01/10/2018 COMPARISON: 01/09/2018 HISTORY: Shortness of breath. Abnormal EKG. TECHNIQUE: Single frontal view of the chest is obtained. FINDINGS: There is no focal air space opacity, pleural effusion, or pneumothorax seen. There is synchronous motor assembler harleen right hemidiaphragm elevation. Obscuration of left costophrenic angle is likely related to overly ing soft tissues. The cardiac silhouette size is within normal limits. The osseous structures are i ntact. IMPRESSION: No acute cardiopulmonary process.
--- NOTE | 2018-01-10 14:39 | P.CNPUL ---
History of Present Illness Consult date: 01/10/18 Reason for consult: other Chief complaint: Preop evaluation History of present illness: Pulmonary consult dated 01/10/2018 72-year-old male with history of multiple medical problems including CVA, depression, COPD, diabetes, and blindness. The patient apparently presented to the emergency department on January 08 with complaints of abdominal pain particularly in the right upper quadrant. He was found to have a dilated gallbladder and large gallstones in one of the surgeons is planning a cholecystectomy. We are asked to see the patient to determine whether or not from the pulmonary standpoint, the patient would be able to tolerate the procedure. He's had 3 x-rays since he was admitted to the hospital. All x- rays show small volumes. There does not appear to be any infiltrates. The patient is not requiring any supplemental oxygen and denies any shortness of breath chest tightness wheezing cough phlegm production or hemoptysis. He is not a particularly good historian and I think the blindness that he had suffers from does make it more difficult to glean history from him. He appears to have a history of hypertension and diabetes GERD COPD vitamin D deficiency and syncope. He is also has a history of CVA. He also is a former smoker hence the diagnosis of COPD. He does take albuterol updrafts as well as Pulmicort updrafts twice a day. It does not appear that he sees a lung doctor. Review of Systems A 12 point review of systems is positive for upper abdominal pain particularly on the right side. He denies any respiratory issues including shortness breath chest tightness wheezing cough phlegm production or hemoptysis. 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 ddd, old t12 compression fx, spopndylothesis ( per chest xray), wears attend,incont stool/urine. bed bound w / assist to chair. per [facility]- pt's baseline is alert,cooperative and knows person/place and normally he has a very good appetite-"they know he not feeling well when he does'nt feel like eating". History of Any Multi-Drug Resistant Organisms: None Reported Past Surgical History: No Surgical Hx Reported Additional Past Surgical History / Comment(s): unknown Past Anesthesia/Blood Transfusion Reactions: No Reported Reaction Past Psychological History: No Psychological Hx Reported Additional Psychological History / Comment(s): Pt currently at [facility]. before going to [facility] he has living with nonfamily member caregiver . He is legally blind bilaterally. Smoking Status: Former smoker Past Alcohol Use History: None Reported Additional Past Alcohol Use History / Comment(s): started smoking about 1965 and quit in 2012 Past Drug Use History: None Reported - Past Family History Father Family Medical History: Diabetes Mellitus Mother Family Medical History: Dementia, Diabetes Mellitus Brother(s) Family Medical History: Unable to Obtain Medications and Allergies Home Medications Medication Instructions Recorded Confirmed Type metFORMIN HCL [Glucophage] 500 mg PO BID@0900,1700 05/05/16 01/08/18 History Albuterol Nebulized [Ventolin 2.5 mg INHALATION RT-Q6H PRN 08/11/17 01/08/18 History Nebulized] Aspirin 81 mg PO DAILY@0900 08/11/17 01/08/18 History Lisinopril [Prinivil] 5 mg PO DAILY@0900 08/11/17 01/08/18 History Metoprolol Tartrate [Lopressor] 25 mg PO BID@0900,1700 08/11/17 01/08/18 History Ipratropium-Albuterol Nebulize 3 ml INHALATION RT-QID ampul.neb 08/13/17 Rx [Duoneb 0.5 mg-3 mg/3 ml Soln] Acetaminophen [Tylenol Arthritis] 650 mg PO Q6H PRN 08/20/17 01/08/18 History Pantoprazole [Protonix] 40 mg PO DAILY 08/20/17 01/08/18 History Furosemide [Lasix] 40 mg PO DAILY #1 tablet 08/29/17 01/08/18 Rx Budesonide [Pulmicort] 1 mg INHALATION RT-BID 01/08/18 01/08/18 History Cholecalciferol (Vitamin D3) 2,000 unit PO DAILY 01/08/18 01/08/18 History [Vitamin D3] Citalopram Hydrobromide [CeleXA] 10 mg PO DAILY 01/08/18 01/08/18 History Ferrous Sulfate [Feosol] 325 mg PO DAILY 01/08/18 01/08/18 History Insulin Lispro [humaLOG Kwikpen] See Protocol SQ QID 01/08/18 01/08/18 History Allergies Allergy/AdvReac Type Severity Reaction Status Date / Time hydrocodone bitartrate AdvReac Nausea Verified 01/08/18 15:29 [From Vicodin] Physical Exam Osteopathic Statement: *. No significant issues noted on an osteopathic structural exam other than those noted in the History and Physical/Consult. Vitals: Vital Signs Temp Pulse Pulse Resp BP Pulse Ox 01/10/18 11:19 100 18 01/10/18 11:17 99.4 F 100 18 167/93 94 L 01/10/18 10:15 99.6 F 118 H 161/87 01/10/18 09:35 98.9 F 120 H 18 198/109 94 L 01/10/18 08:11 104 H 01/10/18 08:00 120 H 18 01/10/18 07:55 104 H 01/10/18 04:00 98.9 F 93 17 167/88 95 01/09/18 23:58 97 18 01/09/18 23:55 99 F 97 18 134/80 94 L 01/09/18 20:38 91 95 01/09/18 20:23 88 01/09/18 20:00 99.3 F 85 17 155/83 96 01/09/18 16:00 98.1 F 97 18 154/83 95 Intake and Output 01/09/18 01/10/18 01/10/18 22:59 06:59 14:59 Intake Total 200 150 390 Output Total 300 300 Balance 200 -150 90 Intake: IV 390 0.9% NaCl with KCl 20 Meq 300 /l 1,000 ml @ 60 mls/hr IV .[id number] EKATERINA with Mvi, Adult No.4 with Vit K 10 ml with Thiamine 100 mg with Folic Acid 1 mg Rx#: [id number] Invasive Line 1 20 Invasive Line 2 20 Piperacillin-Tazobactam 3 50 .375 gm In Dextrose/Water 1 50ml.bag @ 12.5 mls/hr IVPB Q8HR EKATERINA Rx#: [id number] Oral 200 150 Output: Stool 300 300 Other: Voiding Method Diaper Diaper Diaper # Voids 2 Weight 76.5 kg No acute distress, oriented 3. Not requiring supplemental oxygen. HEENT examination is grossly unremarkable. Mucous membranes are moist. No oral lesions. Neck supple. Full range of motion. No adenopathy thyromegaly or neck vein distention. Cardiovascular examination reveals regular rhythm rate. S1-S2 normal. No S3 or S4. No discernible murmur noted. Lungs reveal clear breath sounds. Her sounds are equal bilaterally. No adventitious lung sounds including wheezes rhonchi or crackles. Abdomen soft with diffuse tenderness. Extremities are intact. No cyanosis clubbing or edema. Skin is without rash or lesion. Neurologic examination is brief but nonfocal. Results - Laboratory Findings CBC and BMP: 01/10/18 05:43 01/10/18 05:43 Abnormal lab findings: Abnormal Labs 01/08/18 01/08/18 01/08/18 15:35 15:35 15:35 WBC 11.3 H RBC 4.26 L Hgb 12.5 L Hct 37.4 L Neutrophils # 8.8 H Lymphocytes # Monocytes # Chloride BUN 38 H Creatinine Glucose 120 H POC Glucose (mg/dL) Hemoglobin A1c 6.6 H Calcium AST 86 H ALT Alkaline Phosphatase Troponin I Total Protein 6.2 L Albumin Lipase 312 H 01/08/18 01/09/18 01/09/18 22:39 05:41 05:41 WBC RBC Hgb Hct Neutrophils # 8.5 H Lymphocytes # 0.6 L Monocytes # Chloride BUN 38 H Creatinine 1.30 H Glucose 249 H POC Glucose (mg/dL) 221 H Hemoglobin A1c Calcium 8.3 L AST ALT Alkaline Phosphatase Troponin I Total Protein Albumin Lipase 01/09/18 01/09/18 01/09/18 06:23 11:46 13:32 WBC RBC Hgb Hct Neutrophils # Lymphocytes # Monocytes # Chloride BUN 37 H Creatinine 1.38 H Glucose 182 H POC Glucose (mg/dL) 250 H 172 H Hemoglobin A1c Calcium AST 117 H ALT 139 H Alkaline Phosphatase 158 H Troponin I Total Protein Albumin Lipase 01/09/18 01/09/18 01/10/18 16:17 20:49 05:43 WBC 13.9 H RBC Hgb 12.9 L Hct Neutrophils # 11.6 H Lymphocytes # Monocytes # 1.1 H Chloride BUN Creatinine Glucose POC Glucose (mg/dL) 159 H 166 H Hemoglobin A1c Calcium AST ALT Alkaline Phosphatase Troponin I Total Protein Albumin Lipase 0801/10/18 01/10/18 05:43 05:43 05:57 WBC RBC Hgb Hct Neutrophils # Lymphocytes # Monocytes # Chloride 108 H BUN 35 H Creatinine Glucose 167 H POC Glucose (mg/dL) 162 H Hemoglobin A1c Calcium AST ALT 95 H Alkaline Phosphatase 128 H Troponin I 0.182 H* Total Protein 6.0 L Albumin 3.4 L Lipase 01/10/18 01/10/18 01/10/18 06:14 10:59 11:51 WBC RBC Hgb Hct Neutrophils # Lymphocytes # Monocytes # Chloride BUN Creatinine Glucose POC Glucose (mg/dL) 161 H 168 H Hemoglobin A1c Calcium AST ALT Alkaline Phosphatase Troponin I 0.134 H* Total Protein Albumin Lipase - Diagnostic Findings Chest x-ray: report reviewed (X-rays are reviewed as well as medications and laboratory data), image reviewed Assessment and Plan Assessment: Assessment Right upper quadrant abdominal pain likely secondary to cholelithiasis and cholecystitis History of COPD not particularly active at this time History of blindness History of hypertension History of CVA with right-sided weakness History of diabetes mellitus History of hyperlipidemia Prior history of syncope Plan: Plan dated 01/10/2018 The patient appears to be stable. I will set him back up on his normal breathing medications including Pulmicort and formoterol twice a day and albuterol/Atrovent 4 times a day and when necessary. I think he will do well. We'll continue to follow. Should've any respiratory difficulties after surgery , we be glad to continue to follow him and make recommendations. Thank you very much for this consultation. Time with Patient: Greater than 30
[2018-01-10] MEDS ORDERED: IV FLUID CONTINUATION 500 ML IV ONE (16:25)
[2018-01-10] MEDS ORDERED: IV FLUID CONTINUATION 400 ML IV ONE (16:25)
[2018-01-10] MEDS ORDERED: ONDANSETRON 4 MG/2 ML VIAL IVP ONE (17:00)
[2018-01-10 17:03] LABS: Glucose,Whole Blood 141 mg/dL (75-99)
--- NOTE | 2018-01-10 17:33 | PN ---
PROGRESS NOTE DATE OF SERVICE: 01/10/2018 This 72-year-old gentleman was admitted with multiple symptomatology had possible acute cholelithiasis and cholecystitis. Patient had elevated WBC and tachycardia indicating some amount of sepsis. Lactic acid is normal. The troponins are elevated up to 0.134 and 0.12, indicative of possibly type 2 myocardial infarction with supply demand mismatch according to Cardiology. Otherwise, the chest x-ray showed no acute abnormality. Patient cleared by surgery and Cardiology for laparoscopic cholecystectomy at this time. No chest pain. No palpitations. No fever. No shortness of breath. Still complaining of some abdominal pain. PAST MEDICAL HISTORY: Reviewed. REVIEW OF SYSTEMS: CARDIOVASCULAR: No angina or palpitations. Respiratory: As mentioned earlier. GI: Mentioned earlier. : No dysuria. Central nervous system: As mentioned earlier. CURRENT MEDICATIONS ARE: Reviewed and include: 1. Tylenol 650 q.6h p.r.n. 2. DuoNeb q.i.d. and p.r.n. 3. Pulmicort 1 mg b.i.d. 4. Rocephin 1 g daily. 5. Vitamin D3 2000. 6. Celexa 10 mg b.i.d. 7. Perforomist 20 mg b.i.d. 8. Lasix 40 mg p.o. daily. 9. Heparin subcu b.i.d. 10.NovoLog. 11.Zestril 5 mg b.i.d. 12.Glucophage 500 mg p.o. b.i.d. 13.Lopressor 25 mg p.o. q.i.d. 14.Morphine sulfate 4 mg q.6 hours. 15.Protonix 40 mg daily. 16.Zosyn 3.375 IV q.6h. PHYSICAL EXAM: Patient is alert and oriented x3. Pulse is 103. Blood pressure 171/84, respiration 18, temp 99.6, pulse ox 94% on room air. HEENT: Conjunctivae normal. Oral mucosa moist. Neck is no jugular venous distention. No carotid bruit. No lymph node enlargement. CARDIOVASCULAR: S1, S2 muffled. RESPIRATORY: Breath sounds diminished in the bases. A few scattered rhonchi. No crackles. ABDOMEN: Soft. Mild diffuse tenderness present. No guarding. No mass palpable. Legs are no edema, no swelling. Central nervous system: No focal deficits. LABS: WBC 31, hemoglobin 12.9. Glucose 169. ASSESSMENT: 1. Abdominal pain possible acute cholelithiasis and cholecystitis. 2. Chronic obstructive pulmonary disease acute exacerbation with acute purulent tracheobronchitis. No evidence of pneumonia. 3. Troponin 0.182, possibly related type 2 myocardial infarction supply demand mismatch. 4. Increased lipase, increased WBC. 5. Anemia of chronic disease. 6. Cerebrovascular accident/transient ischemic attack. 7. Diabetes mellitus type 2. 8. 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 9. Hypertension. 10.History of syncope. 11.Old T2 compression fractures. 12.FULL CODE. RECOMMENDATIONS AND DISCUSSION: Continue current medications. Continue monitoring and symptomatic treatment. Otherwise, at this time, continue broad spectrum IV antibiotics. Closely follow with surgery. Discussed with Dr. Salomon. The patient will be cleared for surgery with some added risk because of above mentioned multiple medical issues. Otherwise, patient appears to be medically stable at this time. We will continue to monitor. Discussed with the patient. Discussed with staff. Further recommendations to follow. MMODL / IJN: [id number] /
[2018-01-10] MEDS ORDERED: BUPIVACAIN-EPI 0.5%-1:200,000 30 ML VIAL SQ ONE (18:21)
[2018-01-10] MEDS ORDERED: LACTATED RINGERS 1,000 ML IV ONE (18:35)
--- NOTE | 2018-01-10 19:09 | P.OP ---
Date of Procedure: 01/10/18 Procedure(s) Performed: PREOPERATIVE DIAGNOSIS: Acute cholecystitis POSTOPERATIVE DIAGNOSIS: Same PROCEDURE: Laparoscopic cholecystectomy SURGEON: Aime EBL: Minimal see anesthesia record ANESTHESIA: Gen. COMPLICATIONS: None OPERATIVE PROCEDURE: The patient was brought and placed on the operating room table in the supine position. The patient was placed under general anesthesia at that time. The abdomen was prepped and draped in the usual sterile fashion. A small vertical infraumbilical incision was made. The fascia was grasped with the Wil forceps. The fascia was retracted anteriorly. The Veress needle was advanced into the peritoneal cavity. The saline drop test was normal. Insufflation took place up to 15 mmHg. A 5 mm optical trocar was advanced and the peritoneal cavity. 2 additional 5 mm trochars were placed in the right upper quadrant under direct visualization. A 12 mm trocar was advanced into the epigastric incision site. The patient had some serous fluid that was cloudy in the abdominal cavity that was evacuated. The omentum that was in the right upper quadrant in the vicinity of the gallbladder appeared somewhat erythematous and indurated. Initially the gallbladder did not appear to be as badly inflamed as expected. The wall did appear somewhat edematous but I did evaluate the small bowel colon and stomach to be sure that we did not have any other etiologies. I did not see any abnormalities evident. The gallbladder was retracted superiorly and laterally. The peritoneum overlying the infundibulum was bluntly dissected. The patient's cystic duct was visualized. The junction between the cystic duct common and hepatic duct was identified. The cystic duct was then divided after placement of 3 12 mm clips on the patient's side and one on the specimen side. The cystic artery was identified and clipped as well. A small vessel was seen along the gallbladder fossa and clipped as well. The gallbladder was then removed from the liver bed using electrocautery. There was edema in the wall the gallbladder consistent with acute cholecystitis. The gallbladder was then removed from the epigastric trocar site with an Endo Catch bag. The gallbladder fossa was irrigated with saline. There was no evidence of any bleeding or biliary drainage seen. The trochars were then removed. The fascia at the 12 millimeter site was closed using a [id number] Deepak-Jay 0 Vicryl stitch. The skin at all 4 sites was closed using a 4-0 Monocryl stitch. At the end of this procedure the sponge and needle counts were correct. DISPOSITION: Stable to the recovery room
[2018-01-10] MEDS: MORPHINE SULFATE 4 MG/ML SYRINGE IV ONE ×2 (19:28→19:36)
[2018-01-10] MEDS ORDERED: diphenhydrAMINE 50 MG/ML 1 ML VIAL IVP ONE (19:40)
[2018-01-10 19:53] LABS: Glucose,Whole Blood 165 mg/dL (75-99)
[2018-01-10] MEDS: FORMOTEROL FUMARATE 20 MCG/2 ML NEBU INHALATION SCH (20:18)
[2018-01-10 20:46] LABS: Glucose,Whole Blood 162 mg/dL (75-99)
[2018-01-11] MEDS ORDERED: IPRATROPIUM-ALBUTEROL 3 ML NEB INHALATION PRN (05:08)
[2018-01-11 05:56] LABS: Glucose,Whole Blood 135 mg/dL (75-99)
[2018-01-11 06:35] LABS: Albumin 2.9 g/dL (3.5-5.0); Total Bilirubin 0.8 mg/dL (0.2-1.3); Total Protein 5.5 g/dL (6.3-8.2)
[2018-01-11 06:36] LABS: Basophils % (A) 0 %; Eosinophils % (A) 0 %; HCT 34.4 % (39.0-53.0); Lymphocytes # (A) 1.4 k/uL (1.0-4.8); Lymphocytes % (A) 12 %; MCV 90.4 fL (80.0-100.0); Mean Platelet Volume 7.2; Monocytes # (A) 0.9 k/uL (0-1.0); Monocytes % (A) 8 %; Neutrophils % (A) 78 %; Platelet Count 217 k/uL (150-450); RBC 3.81 m/uL (4.30-5.90); RDW 12.8 % (11.5-15.5); WBC 11.5 k/uL (3.8-10.6)
[2018-01-11] MEDS: INSULIN ASPART 100 UNIT/ML 1 ML 10 ML VIAL SQ SCH ×4 (06:46→21:42)
[2018-01-11] MEDS: cefTRIAXone IN SWFI 1,000 MG/10 ML SYRINGE IVP SCH (08:07)
[2018-01-11] MEDS: PIPERACILLIN-TAZOBACTAM 3.375 GM in DEXTROSE/WATER 1 50ML.BAG IVPB SCH ×3 (08:07→23:52)
[2018-01-11] MEDS: CITALOPRAM HYDROBROMIDE 10 MG TAB PO SCH (08:08)
[2018-01-11] MEDS: metFORMIN 500 MG TAB PO SCH ×2 (08:08→16:03)
[2018-01-11] MEDS: LISINOPRIL 5 MG TAB PO SCH (08:08)
[2018-01-11] MEDS: CHOLECALCIFEROL 1,000 UNIT TAB PO SCH (08:08)
[2018-01-11] MEDS: HEPARIN SODIUM,PORCINE 5,000 UNIT/ML 1 ML VIAL SQ SCH ×2 (08:08→19:47)
[2018-01-11] MEDS: FUROSEMIDE 40 MG TAB PO SCH (08:09)
[2018-01-11] MEDS: PANTOPRAZOLE 40 MG TABLET PO SCH (08:09)
[2018-01-11] MEDS: METOPROLOL TARTRATE 25 MG TAB PO SCH ×4 (08:09→19:47)
[2018-01-11] MEDS: BUDESONIDE 1 MG/2 ML NEBU INHALATION SCH ×2 (08:39→19:30)
[2018-01-11] MEDS: IPRATROPIUM-ALBUTEROL 3 ML NEB INHALATION SCH ×4 (08:39→19:30)
[2018-01-11] MEDS: FORMOTEROL FUMARATE 20 MCG/2 ML NEBU INHALATION SCH ×2 (08:39→19:30)
[2018-01-11 11:34] LABS: Glucose,Whole Blood 177 mg/dL (75-99)
[2018-01-11] MEDS ORDERED: LOPERAMIDE 2 MG CAP PO PRN (13:05)
--- NOTE | 2018-01-11 13:11 | P.PN ---
<Julieta Wing M - Last Filed: 01/11/18 13:03> Subjective Progress Note Date: 01/11/18 72-year-old male who is blind seen this morning sitting up in a chair tolerating a clear liquid diet. Patient is oriented to self and place. abdomen soft nondistended surgical dressing sites dry rectal fecal impaction system in place incontinent a urine stool negative for C. diff Patient is postop January 10 laparoscopic cholecystectomy for acute cholecystitis Objective - Vital Signs Vital signs: Vital Signs Temp 98.8 F 01/11/18 11:47 Pulse 102 H 01/11/18 11:49 Resp 18 01/11/18 11:49 BP 111/62 01/11/18 11:47 Pulse Ox 95 01/11/18 11:47 Intake & Output 01/10/18 01/11/18 01/11/18 18:59 06:59 18:59 Intake Total 1160 1070 450 Output Total 600 10 Balance 560 1060 450 Weight 78.5 kg Intake: IV 1160 210 50 0.9% NaCl with KCl 20 Meq 300 60 /l 1,000 ml @ 60 mls/hr IV .[id number] EKATERINA with Mvi, Adult No.4 with Vit K 10 ml with Thiamine 100 mg with Folic Acid 1 mg Rx#: [id number] Invasive Line 1 30 10 Invasive Line 2 30 20 Invasive Line 3 20 Piperacillin-Tazobactam 3 50 50 .375 gm In Dextrose/Water 1 50ml.bag @ 12.5 mls/hr IVPB Q8HR EKATERINA Rx#: [id number] Intake, IV Titration 660 Amount 0.9% NaCl with KCl 20 Meq 660 /l 1,000 ml @ 60 mls/hr IV .[id number] EKATERINA with Mvi, Adult No.4 with Vit K 10 ml with Thiamine 100 mg with Folic Acid 1 mg Rx#: [id number] Oral 200 400 Output: Stool 600 Estimated Blood Loss 10 Other: Voiding Method Diaper Diaper Diaper # Voids 2 2 - Exam Physical exam 72-year-old blind male sitting up in a chair oriented to self and place cooperative pleasant Lungs posterior diminished at the bases on room air sats 94% Heart S1-S2 audible tachycardic heart rate in the 90s 100 Abdomen surgical tenderness appropriate not distended surgical dressing site dry active bowel tones present incontinent urine moderate amount of liquid stool noted and fecal management system tolerating clear liquid diet no nausea no vomiting Extremities right side weakness with no pedal edema - Labs CBC & Chem 7: 01/11/18 06:03 01/11/18 06:03 Labs: Abnormal Lab Results - Last 24 Hours (Table) 01/10/18 01/10/18 01/10/18 Range/Units 16:58 19:51 20:21 WBC (3.8-10.6) k/uL RBC (4.30-5.90) m/uL Hgb (13.0-17.5) gm/dL Hct (39.0-53.0) % Neutrophils # (1.3-7.7) k/uL Chloride (98-107) mmol/L BUN (9-20) mg/dL Glucose (74-99) mg/dL POC Glucose (mg/dL) 141 H 165 H (75-99) mg/dL Calcium (8.4-10.2) mg/dL ALT (21-72) U/L Troponin I 0.116 H* (0.000-0.034) ng/mL Total Protein (6.3-8.2) g/dL Albumin (3.5-5.0) g/dL 01/10/18 01/11/18 01/11/18 Range/Units 20:45 05:55 06:03 WBC 11.5 H (3.8-10.6) k/uL RBC 3.81 L (4.30-5.90) m/uL Hgb 11.0 L (13.0-17.5) gm/dL Hct 34.4 L (39.0-53.0) % Neutrophils # 9.0 H (1.3-7.7) k/uL Chloride (98-107) mmol/L BUN (9-20) mg/dL Glucose (74-99) mg/dL POC Glucose (mg/dL) 162 H 135 H (75-99) mg/dL Calcium (8.4-10.2) mg/dL ALT (21-72) U/L Troponin I (0.000-0.034) ng/mL Total Protein (6.3-8.2) g/dL Albumin (3.5-5.0) g/dL 01/11/18 01/11/18 Range/Units 06:03 11:32 WBC (3.8-10.6) k/uL RBC (4.30-5.90) m/uL Hgb (13.0-17.5) gm/dL Hct (39.0-53.0) % Neutrophils # (1.3-7.7) k/uL Chloride 110 H (98-107) mmol/L BUN 31 H (9-20) mg/dL Glucose 149 H (74-99) mg/dL POC Glucose (mg/dL) 177 H (75-99) mg/dL Calcium 8.0 L (8.4-10.2) mg/dL ALT 76 H (21-72) U/L Troponin I (0.000-0.034) ng/mL Total Protein 5.5 L (6.3-8.2) g/dL Albumin 2.9 L (3.5-5.0) g/dL Microbiology - Last 24 Hours (Table) 01/08/18 22:27 Blood Culture - Preliminary Blood No Growth after 48 hours Assessment and Plan Assessment: Impression Present on admission right upper quadrant abdominal pain with an ultrasound of the abdomen likely due to acute cholecystitis 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 Visual deficit legally blind bilaterally due to consultations of glaucoma Present on admission right upper quadrant abdominal pain suspect due to gallstones as evident on an ultrasound of the gallbladder largest gallstone measures 2.5cm Present on admission decrease appetite nausea abdominal pain right quadrant likely due to cholecystitis acute Sinus tachycardia Hypertension Status post laparoscopic cholecystectomy for acute cholecystitis done January 11 plan From a surgical perspective could be transferred to surgical unit when okayed with cardiology service Remove fecal management system Defer to the attending to address medical issues IV Zosyn as ordered Pain control DVT and GI prophylaxis PT OT eval The above impression and plan of care have been discussed and directed by signing physician. Julieta Wing nurse practitioner acting as scribe for signing physician. <Doug Salomon - Last Filed: 01/11/18 15:26> Objective - Vital Signs Vital signs: Vital Signs Temp 98.7 F 01/11/18 15:00 Pulse 92 01/11/18 15:00 Resp 18 01/11/18 15:00 BP 155/81 01/11/18 15:00 Pulse Ox 98 08/17/18 15:00 Intake & Output 01/10/18 01/11/18 01/11/18 18:59 06:59 18:59 Intake Total 1160 1070 870 Output Total 600 10 300 Balance 560 1060 570 Weight 78.5 kg 78.5 kg Intake: IV 1160 210 70 0.9% NaCl with KCl 20 Meq 300 60 /l 1,000 ml @ 60 mls/hr IV .[id number] EKATERINA with Mvi, Adult No.4 with Vit K 10 ml with Thiamine 100 mg with Folic Acid 1 mg Rx#: [id number] Invasive Line 1 30 20 Invasive Line 2 30 20 Invasive Line 3 30 Piperacillin-Tazobactam 3 50 50 .375 gm In Dextrose/Water 1 50ml.bag @ 12.5 mls/hr IVPB Q8HR EKATERINA Rx#: [id number] Intake, IV Titration 660 Amount 0.9% NaCl with KCl 20 Meq 660 /l 1,000 ml @ 60 mls/hr IV .[id number] EKATERINA with Mvi, Adult No.4 with Vit K 10 ml with Thiamine 100 mg with Folic Acid 1 mg Rx#: [id number] Oral 200 800 Output: Stool 600 300 Estimated Blood Loss 10 Other: Voiding Method Diaper Diaper Diaper # Voids 2 2 - Labs CBC & Chem 7: 01/11/18 06:03 01/11/18 06:03 Labs: Abnormal Lab Results - Last 24 Hours (Table) 01/10/18 01/10/18 01/10/18 Range/Units 16:58 19:51 20:21 WBC (3.8-10.6) k/uL RBC (4.30-5.90) m/uL Hgb (13.0-17.5) gm/dL Hct (39.0-53.0) % Neutrophils # (1.3-7.7) k/uL Chloride (98-107) mmol/L BUN (9-20) mg/dL Glucose (74-99) mg/dL POC Glucose (mg/dL) 141 H 165 H (75-99) mg/dL Calcium (8.4-10.2) mg/dL ALT (21-72) U/L Troponin I 0.116 H* (0.000-0.034) ng/mL Total Protein (6.3-8.2) g/dL Albumin (3.5-5.0) g/dL 01/10/18 01/11/18 01/11/18 Range/Units 20:45 05:55 06:03 WBC 11.5 H (3.8-10.6) k/uL RBC 3.81 L (4.30-5.90) m/uL Hgb 11.0 L (13.0-17.5) gm/dL Hct 34.4 L (39.0-53.0) % Neutrophils # 9.0 H (1.3-7.7) k/uL Chloride (98-107) mmol/L BUN (9-20) mg/dL Glucose (74-99) mg/dL POC Glucose (mg/dL) 162 H 135 H (75-99) mg/dL Calcium (8.4-10.2) mg/dL ALT (21-72) U/L Troponin I (0.000-0.034) ng/mL Total Protein (6.3-8.2) g/dL Albumin (3.5-5.0) g/dL 01/11/18 01/11/18 Range/Units 06:03 11:32 WBC (3.8-10.6) k/uL RBC (4.30-5.90) m/uL Hgb (13.0-17.5) gm/dL Hct (39.0-53.0) % Neutrophils # (1.3-7.7) k/uL Chloride 110 H (98-107) mmol/L BUN 31 H (9-20) mg/dL Glucose 149 H (74-99) mg/dL POC Glucose (mg/dL) 177 H (75-99) mg/dL Calcium 8.0 L (8.4-10.2) mg/dL ALT 76 H (21-72) U/L Troponin I (0.000-0.034) ng/mL Total Protein 5.5 L (6.3-8.2) g/dL Albumin 2.9 L (3.5-5.0) g/dL Microbiology - Last 24 Hours (Table) 01/08/18 22:27 Blood Culture - Preliminary Blood No Growth after 48 hours Assessment and Plan Assessment: Patient doing better today. Denies pain. Remains confused. Advance diet as tolerated.
--- NOTE | 2018-01-11 13:34 | P.PN ---
Subjective Progress Note Date: 01/11/18 Principal diagnosis: Acute cholelithiasis/cholecystitis, status post laparoscopic cholecystectomy. Pulmonary consult dated 01/10/2018 72-year-old male with history of multiple medical problems including CVA, depression, COPD, diabetes, and blindness. The patient apparently presented to the emergency department on January 08 with complaints of abdominal pain particularly in the right upper quadrant. He was found to have a dilated gallbladder and large gallstones in one of the surgeons is planning a cholecystectomy. We are asked to see the patient to determine whether or not from the pulmonary standpoint, the patient would be able to tolerate the procedure. He's had 3 x-rays since he was admitted to the hospital. All x- rays show small volumes. There does not appear to be any infiltrates. The patient is not requiring any supplemental oxygen and denies any shortness of breath chest tightness wheezing cough phlegm production or hemoptysis. He is not a particularly good historian and I think the blindness that he had suffers from does make it more difficult to glean history from him. He appears to have a history of hypertension and diabetes GERD COPD vitamin D deficiency and syncope. He is also has a history of CVA. He also is a former smoker hence the diagnosis of COPD. He does take albuterol updrafts as well as Pulmicort updrafts twice a day. It does not appear that he sees a lung doctor. The patient was seen and evaluated on 01/11/2018 in follow-up on the selective care unit. He is currently awake and alert in no acute distress resting fairly comfortably in bed. His surgical pain is well controlled. He did undergo a laparoscopic cholecystectomy yesterday. No shortness of breath, cough or congestion. He's been afebrile. Maintaining good O2 saturations in the mid 90s on 2 L/m per nasal cannula. Blood cultures reveal no growth. White count 11.5. Hemoglobin 11.0. Creatinine 1.20. He remains on bronchodilators and Zosyn. He has been having issues with urinary incontinence. He's also had some diarrhea. Objective - Vital Signs Vital signs: Vital Signs Temp 98.8 F 01/11/18 11:47 Pulse 102 H 01/11/18 11:49 Resp 18 01/11/18 11:49 BP 111/62 01/11/18 11:47 Pulse Ox 95 01/11/18 11:47 Intake & Output 01/10/18 01/11/18 01/11/18 18:59 06:59 18:59 Intake Total 1160 1070 850 Output Total 600 10 Balance 560 1060 850 Weight 78.5 kg Intake: IV 1160 210 50 0.9% NaCl with KCl 20 Meq 300 60 /l 1,000 ml @ 60 mls/hr IV .[id number] EKATERINA with Mvi, Adult No.4 with Vit K 10 ml with Thiamine 100 mg with Folic Acid 1 mg Rx#: [id number] Invasive Line 1 30 10 Invasive Line 2 30 20 Invasive Line 3 20 Piperacillin-Tazobactam 3 50 50 .375 gm In Dextrose/Water 1 50ml.bag @ 12.5 mls/hr IVPB Q8HR EKATERINA Rx#: [id number] Intake, IV Titration 660 Amount 0.9% NaCl with KCl 20 Meq 660 /l 1,000 ml @ 60 mls/hr IV .[id number] EKATERINA with Mvi, Adult No.4 with Vit K 10 ml with Thiamine 100 mg with Folic Acid 1 mg Rx#: [id number] Oral 200 800 Output: Stool 600 Estimated Blood Loss 10 Other: Voiding Method Diaper Diaper Diaper # Voids 2 2 - Exam No acute distress, oriented 3. Not requiring supplemental oxygen. HEENT examination is grossly unremarkable. Patient is legally blind. Mucous membranes are moist. No oral lesions. Neck supple. Full range of motion. No adenopathy thyromegaly or neck vein distention. Cardiovascular examination reveals regular rhythm rate. S1-S2 normal. No S3 or S4. No discernible murmur noted. Lungs reveal clear breath sounds. Her sounds are equal bilaterally. No adventitious lung sounds including wheezes rhonchi or crackles. Abdomen soft with diffuse tenderness. Extremities are intact. No cyanosis clubbing or edema. Skin is without rash or lesion. Neurologic examination is brief but nonfocal. - Labs CBC & Chem 7: 01/11/18 06:03 01/11/18 06:03 Labs: Abnormal Lab Results - Last 24 Hours (Table) 01/10/18 01/10/18 01/10/18 Range/Units 16:58 19:51 20:21 WBC (3.8-10.6) k/uL RBC (4.30-5.90) m/uL Hgb (13.0-17.5) gm/dL Hct (39.0-53.0) % Neutrophils # (1.3-7.7) k/uL Chloride (98-107) mmol/L BUN (9-20) mg/dL Glucose (74-99) mg/dL POC Glucose (mg/dL) 141 H 165 H (75-99) mg/dL Calcium (8.4-10.2) mg/dL ALT (21-72) U/L Troponin I 0.116 H* (0.000-0.034) ng/mL Total Protein (6.3-8.2) g/dL Albumin (3.5-5.0) g/dL 01/10/18 01/11/18 01/11/18 Range/Units 20:45 05:55 06:03 WBC 11.5 H (3.8-10.6) k/uL RBC 3.81 L (4.30-5.90) m/uL Hgb 11.0 L (13.0-17.5) gm/dL Hct 34.4 L (39.0-53.0) % Neutrophils # 9.0 H (1.3-7.7) k/uL Chloride (98-107) mmol/L BUN (9-20) mg/dL Glucose (74-99) mg/dL POC Glucose (mg/dL) 162 H 135 H (75-99) mg/dL Calcium (8.4-10.2) mg/dL ALT (21-72) U/L Troponin I (0.000-0.034) ng/mL Total Protein (6.3-8.2) g/dL Albumin (3.5-5.0) g/dL 01/11/18 01/11/18 Range/Units 06:03 11:32 WBC (3.8-10.6) k/uL RBC (4.30-5.90) m/uL Hgb (13.0-17.5) gm/dL Hct (39.0-53.0) % Neutrophils # (1.3-7.7) k/uL Chloride 110 H (98-107) mmol/L BUN 31 H (9-20) mg/dL Glucose 149 H (74-99) mg/dL POC Glucose (mg/dL) 177 H (75-99) mg/dL Calcium 8.0 L (8.4-10.2) mg/dL ALT 76 H (21-72) U/L Troponin I (0.000-0.034) ng/mL Total Protein 5.5 L (6.3-8.2) g/dL Albumin 2.9 L (3.5-5.0) g/dL Microbiology - Last 24 Hours (Table) 01/08/18 22:27 Blood Culture - Preliminary Blood No Growth after 48 hours Assessment and Plan Assessment: Assessment Right upper quadrant abdominal pain secondary to cholelithiasis and cholecystitis status post laparoscopic cholecystectomy. Postoperative day #1. History of COPD not particularly active at this time History of blindness History of hypertension History of CVA with right-sided weakness History of diabetes mellitus History of hyperlipidemia Prior history of syncope Plan: The patient was seen and evaluated by Dr. Sharma. He is stable from the pulmonary standpoint. We will follow him on as-needed basis. I, the cosigning physician, performed a history & physical examination of the patient. Lungs sounds are clear. Maintaining good O2 saturations in the 90s on room air. I discussed the assessment and plan of care with my nurse practitioner, Tiffanie Ramirez. I attest to the above note as dictated by her.
--- NOTE | 2018-01-11 13:54 | ECHOF ---
Referral Reason:chf MEASUREMENTS -------- HEIGHT: 167.6 cm WEIGHT: 76.2 kg BP: 161/87 RVIDd: 3.3 cm (< 3.3) IVSd: 1.5 cm (0.6 - 1.1) LVIDd: 4.4 cm (3.9 - 5.3) LVPWd: 1.4 cm (0.6 - 1.1) IVSs: 1.7 cm LVIDs: 3.2 cm LVPWs: 1.9 cm LA Diam: 3.6 cm (2.7 - 3.8) LAESV Index (A-L): 31.98 ml/m Ao Diam: 3.9 cm (2.0 - 3.7) AV Cusp: 1.8 cm (1.5 - 2.6) MV EXCURSION: 10.412 mm (> 18.000) MV EF SLOPE: 45 mm/s (70 - 150) EPSS: 1.7 cm MV E Sanchez: 1.22 m/s MV DecT: 180 ms MV A Sanchez: 1.94 m/s MV E/A Ratio: 0.63 AV maxP.71 mmHg AV meanP.83 mmHg AR PHT: 855 ms FINDINGS -------- Sinus rhythm. This was a technically difficult study with suboptimal views. The left ventricular size is normal. There is moderate concentric left ventricular hypertrophy. O verall left ventricular systolic function is normal with, an EF between 55 - 60 %. The right ventricle is mildly enlarged. LA is midly dilated 29-33ml/m2. The right atrium is normal in size. Lumason used There is mild aortic valve sclerosis. There is mild aortic regurgitation. There is mild aortic st enosis present. Peak/mean gradient across the Aortic Valve is 20.71mmHg / 9.83mmHg. The mitral valve leaflets are mildly thickened. Mild mitral annular calcification present. The tricuspid valve was not well visualized. Trace/mild (physiologic) pulmonic regurgitation. The aortic root is dilated measuring 3.9cm. IVC Not well visulized. There is a small, generalized pericardial effusion present. CONCLUSIONS -------- 1. Sinus rhythm. 2. This was a technically difficult study with suboptimal views. 3. The left ventricular size is normal. 4. There is moderate concentric left ventricular hypertrophy. 5. Overall left ventricular systolic function is normal with, an EF between 55 - 60 %. 6. The right ventricle is mildly enlarged. 7. LA is midly dilated 29-33ml/m2. 8. The right atrium is normal in size. 9. Lumason used 10. There is mild aortic valve sclerosis. 11. There is mild aortic regurgitation. 12. There is mild aortic stenosis present. 13. Peak/mean gradient across the Aortic Valve is 20.71mmHg / 9.83mmHg. 14. The mitral valve leaflets are mildly thickened. 15. Mild mitral annular calcification present. 16. The tricuspid valve was not well visualized. 17. Trace/mild (physiologic) pulmonic regurgitation. 18. The aortic root is dilated measuring 3.9cm. 19. IVC Not well visulized. 20. There is a small, generalized pericardial effusion present. SHIP RUNNER: Trinity Clarke RDCS
[2018-01-11] MEDS: LISINOPRIL 10 MG TAB PO SCH (15:56)
[2018-01-11] MEDS: amLODIPine 5 MG TAB PO SCH (16:02)
[2018-01-11] MEDS: CHOLESTYRAMINE (WITH SUGAR) 4 GM PACKET PO SCH ×2 (16:03→21:42)
[2018-01-11 16:33] LABS: Glucose,Whole Blood 125 mg/dL (75-99)
--- NOTE | 2018-01-11 17:07 | PN ---
PROGRESS NOTE DATE OF SERVICE: 01/11/2018 This 73-year-old gentleman with multiple medical complex issues, underwent laparoscopic cholecystectomy for cholelithiasis and cholecystitis. The patient also had multiple other medical issues including COPD and indeterminate troponins. Also, Cardiology and pulmonology following the patient closely. The sensorium remains unchanged. The patient complains of abdominal pain, status post surgery, Dr. Salomon is following the patient closely. The patient is having diarrhea. PAST MEDICAL HISTORY: Reviewed. REVIEW OF SYSTEMS: Cardiovascular: No angina or palpitations. Respirations: Occasional cough. GI as mentioned earlier. : No dysuria. Central nervous system: No numbness or weakness. CURRENT MEDICATIONS: Current medications are reviewed and include: 1. Tylenol 650 q.6h p.r.n. 2. Albuterol q.i.d. 3. DuoNeb q.i.d. and p.r.n. 4. Norvasc 5 mg p.o. daily. 5. Pulmicort 1 mg b.i.d. 6. Vitamin D3 daily 2000 daily. 7. Questran 4 mg p.r.n. 8. Celexa 10 mg daily. 9. Perforomist 20 mg b.i.d. p.r.n. 10.Lasix. 11.Heparin 5000 subcu b.i.d. 12.Zestril 10 mg daily. 13.Imodium p.r.n. 14.Glucovance. 15.Lopressor. 16.Zofran. 17.Protonix. PHYSICAL EXAM: Patient is alert, oriented x2. Pulse is 102. Blood pressure 140/62. Respirations 18. Temperature 98.8, pulse ox 94 percent on 2 L. HEENT: Conjunctivae normal. Oral mucosa moist. Neck is no jugular venous distention. No carotid bruit. No lymph node enlargement. Cardiovascular systems: S1, S2 muffled. Respiration: Breath sounds diminished in the bases. A few scattered rhonchi and crackles. ABDOMEN: Soft. Mild diffuse tenderness, status post surgery. Legs: No edema. No swelling. Central nervous system: No focal deficits. LAB: At this time shows, WBC 11.2, hemoglobin 10, sodium 143, potassium 4. ASSESSMENT: 1. Abdominal pain with possible acute cholelithiasis and cholecystitis status post laparoscopic cholecystectomy. 2. Chronic obstructive pulmonary disease acute exacerbation with acute purulent tracheobronchitis. No evidence of pneumonia. The troponin 0.182, indeterminate, possibly related to type 2 myocardial infarction supply demand mismatch per Cardiology. 3. Increased lipase. 4. Increased WBC improved. 5. Anemia of chronic disease. 6. Cerebrovascular accident, transient ischemic attack history. 7. Diabetes mellitus type 2. 8. 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 9. Hypertension. 10.History of syncope. 11.Old T12 compression fracture. 12.FULL CODE. RECOMMENDATIONS AND DISCUSSION: Recommend to continue current medications, management with symptomatic treatment, continue broad-spectrum IV antibiotics. Follow the cultures which are negative so far. Closely follow with Cardiology and pulmonology. Vitals stable at this time. Prognosis guarded. I would also recommend PT/OT evaluation, possible ECF rehab. Closely follow with surgery. Further recommendations to follow. MMMADINAL / IJN: [id number] /
[2018-01-11] MEDS: 0.9% NACL WITH KCL 20 MEQ/L 1,000 ML with MVI, ADULT NO.4 WITH VIT K 10 ML, THIAMINE 10... IV SCH ×4 (19:16)
[2018-01-11 21:36] LABS: Glucose,Whole Blood 168 mg/dL (75-99)
[2018-01-12] MEDS: PANTOPRAZOLE 40 MG TABLET PO SCH (06:07)
[2018-01-12] MEDS: CHOLESTYRAMINE (WITH SUGAR) 4 GM PACKET PO SCH ×2 (06:07→09:05)
[2018-01-12 06:24] LABS: Glucose,Whole Blood 131 mg/dL (75-99)
[2018-01-12] MEDS: INSULIN ASPART 100 UNIT/ML 1 ML 10 ML VIAL SQ SCH ×4 (06:24→20:43)
[2018-01-12 06:55] LABS: Basophils % (A) 0 %; Eosinophils % (A) 0 %; HCT 35.2 % (39.0-53.0); HGB 11.2 gm/dL (13.0-17.5); Lymphocytes # (A) 1.3 k/uL (1.0-4.8); Lymphocytes % (A) 12 %; MCH 29.3 pg (25.0-35.0); MCHC 31.9 g/dL (31.0-37.0); MCV 91.7 fL (80.0-100.0); Mean Platelet Volume 7.6; Monocytes % (A) 9 %; Neutrophils # (A) 8.6 k/uL (1.3-7.7); Neutrophils % (A) 77 %; Platelet Count 220 k/uL (150-450); RBC 3.84 m/uL (4.30-5.90); RDW 12.8 % (11.5-15.5); WBC 11.1 k/uL (3.8-10.6)
[2018-01-12 07:09] LABS: Potassium 3.9 mmol/L (3.5-5.1)
[2018-01-12 07:10] LABS: Calcium 8.1 mg/dL (8.4-10.2)
[2018-01-12] MEDS: IPRATROPIUM-ALBUTEROL 3 ML NEB INHALATION SCH ×4 (08:21→21:41)
[2018-01-12] MEDS: BUDESONIDE 1 MG/2 ML NEBU INHALATION SCH ×2 (08:21→21:40)
[2018-01-12] MEDS: FORMOTEROL FUMARATE 20 MCG/2 ML NEBU INHALATION SCH ×2 (08:21→21:53)
[2018-01-12] MEDS: CHOLECALCIFEROL 1,000 UNIT TAB PO SCH (08:54)
[2018-01-12] MEDS: CITALOPRAM HYDROBROMIDE 10 MG TAB PO SCH (08:54)
[2018-01-12] MEDS: PIPERACILLIN-TAZOBACTAM 3.375 GM in DEXTROSE/WATER 1 50ML.BAG IVPB SCH ×3 (08:54→23:53)
[2018-01-12] MEDS: amLODIPine 5 MG TAB PO SCH (08:54)
[2018-01-12] MEDS: HEPARIN SODIUM,PORCINE 5,000 UNIT/ML 1 ML VIAL SQ SCH ×2 (08:54→19:28)
[2018-01-12] MEDS: FUROSEMIDE 40 MG TAB PO SCH (08:55)
[2018-01-12] MEDS: metFORMIN 500 MG TAB PO SCH ×2 (08:55→16:33)
[2018-01-12] MEDS: METOPROLOL TARTRATE 25 MG TAB PO SCH ×4 (08:55→19:28)
[2018-01-12] MEDS: LISINOPRIL 10 MG TAB PO SCH (08:55)
--- NOTE | 2018-01-12 10:18 | P.PN ---
Subjective Progress Note Date: 01/12/18 Principal diagnosis: Acute cholecystitis Patient doing better today. Much more alert. Denies pain. White blood cell count 11.1. Asking for more to eat. Objective - Vital Signs Vital signs: Vital Signs Temp 98.4 F 01/12/18 08:53 Pulse 105 H 01/12/18 08:53 Resp 18 01/12/18 08:53 BP 182/78 01/12/18 08:53 Pulse Ox 95 01/12/18 08:53 Intake & Output 01/11/18 01/12/18 01/12/18 18:59 06:59 18:59 Intake Total 870 0 730 Output Total 300 900 Balance 570 -900 730 Weight 78.5 kg 89 kg Intake: IV 70 0 730 0.9% NaCl with KCl 20 Meq 720 /l 1,000 ml @ 60 mls/hr IV .[id number] EKATERINA with Mvi, Adult No.4 with Vit K 10 ml with Thiamine 100 mg with Folic Acid 1 mg Rx#: [id number] Invasive Line 1 20 0 0 Invasive Line 2 20 Invasive Line 3 30 0 10 Oral 800 Output: Stool 300 900 Other: Voiding Method Diaper Diaper Incontinent # Voids 2 2 1 # Bowel Movements 0 0 - Exam Abdomen: Soft, nondistended, nontender, incisions clean and dry - Labs CBC & Chem 7: 01/12/18 06:27 01/12/18 06:27 Labs: Abnormal Lab Results - Last 24 Hours (Table) 01/11/18 01/11/18 01/11/18 Range/Units 11:32 16:31 21:34 WBC (3.8-10.6) k/uL RBC (4.30-5.90) m/uL Hgb (13.0-17.5) gm/dL Hct (39.0-53.0) % Neutrophils # (1.3-7.7) k/uL Chloride (98-107) mmol/L BUN (9-20) mg/dL Glucose (74-99) mg/dL POC Glucose (mg/dL) 177 H 125 H 168 H (75-99) mg/dL Calcium (8.4-10.2) mg/dL 01/12/18 01/12/18 01/12/18 Range/Units 06:21 06:27 06:27 WBC 11.1 H (3.8-10.6) k/uL RBC 3.84 L (4.30-5.90) m/uL Hgb 11.2 L (13.0-17.5) gm/dL Hct 35.2 L (39.0-53.0) % Neutrophils # 8.6 H (1.3-7.7) k/uL Chloride 109 H (98-107) mmol/L BUN 24 H (9-20) mg/dL Glucose 127 H (74-99) mg/dL POC Glucose (mg/dL) 131 H (75-99) mg/dL Calcium 8.1 L (8.4-10.2) mg/dL Microbiology - Last 24 Hours (Table) 01/08/18 22:27 Blood Culture - Preliminary Blood No Growth after 72 hours Assessment and Plan (1) Acute cholecystitis Narrative/Plan: Will advance diet. Stable for discharge from my standpoint. Current Visit: Yes Status: Acute Code(s): K81.0 - ACUTE CHOLECYSTITIS SNOMED Code(s): 54554161
[2018-01-12 12:14] LABS: Glucose,Whole Blood 135 mg/dL (75-99)
[2018-01-12] MEDS ORDERED: DEXTROSE 5% IN WATER 100 ML with AMIODARONE 150 MG IV ONE (12:35)
[2018-01-12] MEDS: 0.9% NACL WITH KCL 20 MEQ/L 1,000 ML with MVI, ADULT NO.4 WITH VIT K 10 ML, THIAMINE 10... IV SCH ×8 (13:28→23:54)
[2018-01-12] MEDS: AMIODARONE 450 MG in DEXTROSE 5% IN WATER 250 ML IV SCH ×4 (13:33→19:26)
[2018-01-12 15:30] LABS: Magnesium 1.8 mg/dL (1.6-2.3); Potassium 3.9 mmol/L (3.5-5.1)
[2018-01-12 17:04] LABS: Glucose,Whole Blood 165 mg/dL (75-99)
--- NOTE | 2018-01-12 17:57 | XR ---
EXAMINATION TYPE: XR chest 1V portable DATE OF EXAM: 01/12/2018 CLINICAL HISTORY: Difficulty breathing and CHF progress study. TECHNIQUE: Single AP portable upright view of the chest is obtained. COMPARISON: Chest x-ray from 2 days earlier and older studies. FINDINGS: There is persistent low lung volumes. There is persistent cardiomegaly with atheroscleroti c thoracic aorta. There is chronic parenchymal change with developing right basilar opacity bulge ref lect atelectasis and/or infiltrate. Osseous structures are demineralized. IMPRESSION: Low lung volumes and cardiomegaly with developing right basilar infiltrate and/or atelect asis noted. Progress two-view chest x-ray study is advised.
[2018-01-12 20:41] LABS: Glucose,Whole Blood 146 mg/dL (75-99)
--- NOTE | 2018-01-12 22:11 | PN ---
PROGRESS NOTE DATE OF SERVICE: 01/12/2018. INTERVAL HISTORY: This 73-year-old gentleman who was admitted with abdominal pain with acute cholelithiasis, cholecystitis, underwent laparoscopic cholecystectomy by Dr. Salomon. The patient is complaining of occasional cough at this time. There is no chest pain. No palpitations. No fever. PHYSICAL EXAM: Alert and oriented x3. Pulse is 103. Blood pressure is 161/82, respiratory rate 16, temperature 98.8, pulse ox 95 percent on 2 L. HEENT is conjunctivae normal. Oral mucosa moist. Neck is no jugular venous distention. No thyroid enlargement. No carotid bruit. Cardiovascular system: S1-S2 muffled. No S3, no S4. Respiratory: Breath sounds diminished in the bases. A few scattered rhonchi and crackles. ABDOMEN: Soft, diffuse distention. Status post laparoscopic cholecystectomy. LEGS: No edema. No swelling. Central nervous system: No focal deficits. LAB STUDIES: At this time shows WBC 11.2, hemoglobin 11.8, Accu-Cheks noted. Calcium 8.1. ASSESSMENT: 1. Abdominal pain with possible acute cholelithiasis and cholecystitis status post laparoscopic cholecystectomy. 2. Chronic obstructive pulmonary disease acute exacerbation with acute purulent tracheobronchitis with no evidence of pneumonia. 3. Troponin 0.132, indeterminate, possibly related to type 2 myocardial infarction supply demand mismatch per Cardiology. 4. Increased lipase. 5. Increased WBC improved. 6. Anemia of chronic disease. 7. Cerebrovascular accident/transient ischemic attack history. 8. Diabetes mellitus type 2. 9. 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 10.Hypertension. 11.Syncope. 12.Old T12 compression fracture. 13.FULL CODE. RECOMMENDATIONS AND DISCUSSION: Recommend to continue current medications, continue to monitor. Symptomatic treatment. Otherwise, at this time, continue with empiric antibiotics. Continue the rest of the medication. Monitor closely and I would also recommend PT/OT evaluation, possible ECF to [facility] on Sunday. Closely follow with surgery at this time. MMODL / IJN: [id number] /
[2018-01-13] MEDS: AMIODARONE 450 MG in DEXTROSE 5% IN WATER 250 ML IV SCH ×6 (04:44→22:04)
[2018-01-13 05:24] LABS: Glucose,Whole Blood 142 mg/dL (75-99)
[2018-01-13] MEDS: INSULIN ASPART 100 UNIT/ML 1 ML 10 ML VIAL SQ SCH ×4 (06:02→20:52)
[2018-01-13] MEDS: PANTOPRAZOLE 40 MG TABLET PO SCH (06:09)
[2018-01-13 06:11] LABS: Basophils % (A) 0 %; Eosinophils % (A) 0 %; HCT 34.7 % (39.0-53.0); HGB 11.1 gm/dL (13.0-17.5); Lymphocytes # (A) 1.3 k/uL (1.0-4.8); Lymphocytes % (A) 12 %; MCH 29.4 pg (25.0-35.0); MCHC 32.1 g/dL (31.0-37.0); MCV 91.5 fL (80.0-100.0); Mean Platelet Volume 7.3; Monocytes # (A) 0.9 k/uL (0-1.0); Monocytes % (A) 8 %; Neutrophils # (A) 8.5 k/uL (1.3-7.7); Neutrophils % (A) 78 %; Platelet Count 238 k/uL (150-450); RBC 3.79 m/uL (4.30-5.90); RDW 12.7 % (11.5-15.5); WBC 10.9 k/uL (3.8-10.6)
[2018-01-13 06:26] LABS: Calcium 8.5 mg/dL (8.4-10.2); Potassium 3.7 mmol/L (3.5-5.1)
[2018-01-13] MEDS: FORMOTEROL FUMARATE 20 MCG/2 ML NEBU INHALATION SCH ×2 (08:19→20:06)
[2018-01-13] MEDS: IPRATROPIUM-ALBUTEROL 3 ML NEB INHALATION SCH ×4 (08:19→20:07)
[2018-01-13] MEDS: BUDESONIDE 1 MG/2 ML NEBU INHALATION SCH ×2 (08:20→20:06)
[2018-01-13] MEDS: CITALOPRAM HYDROBROMIDE 10 MG TAB PO SCH (09:28)
[2018-01-13] MEDS: METOPROLOL TARTRATE 25 MG TAB PO SCH ×4 (09:28→20:02)
[2018-01-13] MEDS: HEPARIN SODIUM,PORCINE 5,000 UNIT/ML 1 ML VIAL SQ SCH ×2 (09:28→20:02)
[2018-01-13] MEDS: CHOLECALCIFEROL 1,000 UNIT TAB PO SCH (09:28)
[2018-01-13] MEDS: LISINOPRIL 10 MG TAB PO SCH (09:28)
[2018-01-13] MEDS: metFORMIN 500 MG TAB PO SCH ×2 (09:28→17:15)
[2018-01-13] MEDS: amLODIPine 5 MG TAB PO SCH (09:28)
[2018-01-13] MEDS: FUROSEMIDE 40 MG TAB PO SCH (09:28)
[2018-01-13] MEDS: PIPERACILLIN-TAZOBACTAM 3.375 GM in DEXTROSE/WATER 1 50ML.BAG IVPB SCH ×2 (09:28→17:14)
--- NOTE | 2018-01-13 10:36 | P.PN ---
<Heike Wingjuanjose Painter - Last Filed: 01/13/18 10:33> Subjective Progress Note Date: 01/13/18 72-year-old seen this morning at the bedside pleasantly confused oriented to self and place. No new events. White count 10.9 Discharge plan and progress. From a surgical perspective is felt to be appropriate to be transferred back to [facility] facility defer to the timing to the attending currently tolerating diet postop January 10 laparoscopic cholecystectomy for acute cholecystitis Objective - Vital Signs Vital signs: Vital Signs Temp 97.0 F L 01/13/18 08:00 Pulse 90 01/13/18 08:41 Resp 18 01/13/18 04:00 BP 143/57 01/13/18 08:00 Pulse Ox 98 01/13/18 08:00 Intake & Output 01/12/18 01/13/18 01/13/18 18:59 06:59 18:59 Intake Total 2129.9 443.151 Output Total 900 Balance 2129.9 -456.849 Weight 82.5 kg Intake: IV 1409.9 0 0.9% NaCl with KCl 20 Meq 1140 /l 1,000 ml @ 60 mls/hr IV .[id number] [facility] with Mvi, Adult No.4 with Vit K 10 ml with Thiamine 100 mg with Folic Acid 1 mg Rx#: [id number] Amiodarone 450 mg In 99.9 Dextrose 5% in Water 250 ml @ 1 MG/MIN 34.53 mls/ hr IV .Q7H31M [facility] Rx#: [id number] Dextrose 5% in Water 100 100 ml @ 618 mls/hr IV .Q10M ONE with Amiodarone 150 mg Rx#:[id number] Invasive Line 1 0 0 Invasive Line 3 10 Invasive Line 4 10 Piperacillin-Tazobactam 3 50 .375 gm In Dextrose/Water 1 50ml.bag @ 12.5 mls/hr IVPB Q8HR [facility] Rx#: [id number] Intake, IV Titration 203.151 Amount Amiodarone 450 mg In 203.151 Dextrose 5% in Water 250 ml @ 1 MG/MIN 34.53 mls/ hr IV .Q7H31M [facility] Rx#: [id number] Oral 720 240 Output: Stool 900 Other: Voiding Method Diaper Diaper Incontinent Incontinent # Voids 1 0 - Exam Physical exam Abdomen soft nondistended no facial grimacing with palpitation to the abdominal wall surgical dressing site dry incontinently urine no stool - Labs CBC & Chem 7: 01/13/18 05:49 01/13/18 05:49 Labs: Abnormal Lab Results - Last 24 Hours (Table) 01/12/18 01/12/18 01/12/18 Range/Units 12:03 17:01 20:40 WBC (3.8-10.6) k/uL RBC (4.30-5.90) m/uL Hgb (13.0-17.5) gm/dL Hct (39.0-53.0) % Neutrophils # (1.3-7.7) k/uL BUN (9-20) mg/dL Glucose (74-99) mg/dL POC Glucose (mg/dL) 135 H 165 H 146 H (75-99) mg/dL 01/13/18 01/13/18 01/13/18 Range/Units 05:22 05:49 05:49 WBC 10.9 H (3.8-10.6) k/uL RBC 3.79 L (4.30-5.90) m/uL Hgb 11.1 L (13.0-17.5) gm/dL Hct 34.7 L (39.0-53.0) % Neutrophils # 8.5 H (1.3-7.7) k/uL BUN 23 H (9-20) mg/dL Glucose 145 H (74-99) mg/dL POC Glucose (mg/dL) 142 H (75-99) mg/dL Microbiology - Last 24 Hours (Table) 01/08/18 22:27 Blood Culture - Preliminary Blood No Growth after 96 hours Assessment and Plan Assessment: Impression Present on admission right upper quadrant abdominal pain with an ultrasound of the abdomen likely due to acute cholecystitis 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 Visual deficit legally blind bilaterally due to consultations of glaucoma Present on admission right upper quadrant abdominal pain suspect due to gallstones as evident on an ultrasound of the gallbladder largest gallstone measures 2.5cm Present on admission decrease appetite nausea abdominal pain right quadrant likely due to cholecystitis acute Sinus tachycardia Hypertension Status post laparoscopic cholecystectomy for acute cholecystitis done January 11 plan From a surgical perspective okay to transfer to [facility] facility Defer to the attending to address medical issues IV Zosyn as ordered Pain control DVT and GI prophylaxis PT OT eval The above impression and plan of care have been discussed and directed by signing physician. Julieta Wing nurse practitioner acting as scribe for signing physician. <Doug Salomon - Last Filed: 01/13/18 11:03> Objective - Vital Signs Vital signs: Vital Signs Temp 97.0 F L 01/13/18 08:00 Pulse 90 01/13/18 08:41 Resp 18 01/13/18 04:00 BP 143/57 01/13/18 08:00 Pulse Ox 98 01/13/18 08:00 Intake & Output 01/12/18 01/13/18 01/13/18 18:59 06:59 18:59 Intake Total 2129.9 443.151 75 Output Total 900 Balance 2129.9 -456.849 75 Weight 82.5 kg Intake: IV 1409.9 0 75 0.9% NaCl with KCl 20 Meq 1140 /l 1,000 ml @ 60 mls/hr IV .[id number] EKATERINA with Mvi, Adult No.4 with Vit K 10 ml with Thiamine 100 mg with Folic Acid 1 mg Rx#: [id number] Amiodarone 450 mg In 99.9 75 Dextrose 5% in Water 250 ml @ 1 MG/MIN 34.53 mls/ hr IV .Q7H31M [facility] Rx#: [id number] Dextrose 5% in Water 100 100 ml @ 618 mls/hr IV .Q10M ONE with Amiodarone 150 mg Rx#:[id number] Invasive Line 1 0 0 Invasive Line 3 10 Invasive Line 4 10 Piperacillin-Tazobactam 3 50 .375 gm In Dextrose/Water 1 50ml.bag @ 12.5 mls/hr IVPB Q8HR [facility] Rx#: [id number] Intake, IV Titration 203.151 Amount Amiodarone 450 mg In 203.151 Dextrose 5% in Water 250 ml @ 1 MG/MIN 34.53 mls/ hr IV .Q7H31M [facility] Rx#: [id number] Oral 720 240 Output: Stool 900 Other: Voiding Method Diaper Diaper Diaper Incontinent Incontinent Incontinent # Voids 1 0 - Labs CBC & Chem 7: 01/13/18 05:49 01/13/18 05:49 Labs: Abnormal Lab Results - Last 24 Hours (Table) 01/12/18 01/12/18 01/12/18 Range/Units 12:03 17:01 20:40 WBC (3.8-10.6) k/uL RBC (4.30-5.90) m/uL Hgb (13.0-17.5) gm/dL Hct (39.0-53.0) % Neutrophils # (1.3-7.7) k/uL BUN (9-20) mg/dL Glucose (74-99) mg/dL POC Glucose (mg/dL) 135 H 165 H 146 H (75-99) mg/dL 01/13/18 01/13/18 01/13/18 Range/Units 05:22 05:49 05:49 WBC 10.9 H (3.8-10.6) k/uL RBC 3.79 L (4.30-5.90) m/uL Hgb 11.1 L (13.0-17.5) gm/dL Hct 34.7 L (39.0-53.0) % Neutrophils # 8.5 H (1.3-7.7) k/uL BUN 23 H (9-20) mg/dL Glucose 145 H (74-99) mg/dL POC Glucose (mg/dL) 142 H (75-99) mg/dL Microbiology - Last 24 Hours (Table) 01/08/18 22:27 Blood Culture - Preliminary Blood No Growth after 96 hours Assessment and Plan Assessment: As above. Patient doing well. Continue diet as tolerated. Continue IV antibiotics until discharge. We'll sign off. Please contact if needed. (1) Acute cholecystitis Current Visit: Yes Status: Acute Code(s): K81.0 - ACUTE CHOLECYSTITIS SNOMED Code(s): 89743494
[2018-01-13 11:41] LABS: Glucose,Whole Blood 146 mg/dL (75-99)
[2018-01-13 16:37] LABS: Glucose,Whole Blood 143 mg/dL (75-99)
--- NOTE | 2018-01-13 16:39 | PN ---
PROGRESS NOTE DATE OF SERVICE: 01/13/2018 This 72-year-old gentleman who was admitted with abdominal pain with possible acute cholelithiasis and cholecystitis, underwent laparoscopic cholecystectomy. The patient also has COPD acute exacerbation. The most recent chest x-ray showed possible right basilar infected infiltrate or atelectasis. PAST MEDICAL HISTORY: Reviewed. REVIEW OF SYSTEMS: Cardiovascular as mentioned earlier. GI no nausea or vomiting. : As mentioned earlier. CURRENT MEDICATIONS: Reviewed and include: 1. Tylenol 650 q.6h p.r.n. 2. DuoNeb q.i.d. and p.r.n. 3. Cordarone 40 mg b.i.d. 4. Norvasc 5 mg. 5. Pulmicort 1 mg b.i.d. 6. Vitamin D3. 7. Celexa. 8. Brovana 20 mg p.o. b.i.d. 9. Lasix 40 mg p.o. daily. 10.Heparin 5000 subcu b.i.d. 11.Zestril 10 mg. 12.Imodium p.r.n. 13.Glucophage 500 mg. 14.Lopressor. 15.Zofran. 16.Protonix. 17.Zosyn IV. PHYSICAL EXAM: Patient is alert, oriented x3, pulse 106, blood pressure 180/90. Respiration 20. Temp is normal. Pulse ox 91 percent on room air. HEENT: Conjunctivae normal. Neck is no jugular venous distention. No carotid bruit. No lymph node enlargement. CARDIOVASCULAR: S1, S2 muffled. Respiratory: Breath sounds diminished in the bases. A few scattered rhonchi and crackles. Expiratory wheezing present. ABDOMEN: Soft. Status post surgery. Legs are no edema, no swelling. Central nervous system: No focal deficits. LAB STUDIES: WBC 11.1, hemoglobin 7.1. ASSESSMENT: 1. Abdominal pain with possible acute cholelithiasis and cholecystitis status post laparoscopic cholecystectomy. 2. Chronic obstructive pulmonary disease acute exacerbation with possible right lower lobe pneumonia. 3. Possible atelectasis. 4. Troponin 0.113 indeterminate, possible type 2 myocardial infarction. per Cardiology. 5. Increased lipase. 6. Increased WBC, improved. 7. Anemia of chronic disease. 8. Cerebrovascular accident, transient ischemic attack. 9. Diabetes mellitus type 2. 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 11.Hypertension. 12.Syncope. 13.Old T12 compression fracture. 14.FULL CODE. RECOMMENDATIONS AND DISCUSSION: Recommend to continue current medications. Continue with monitoring, symptomatic treatment, antibiotics. Continue with bronchodilators. Otherwise, I would also recommend incentive spirometry. The patient is on amiodarone. Continue the rest of medications which are reviewed. Monitor blood sugars closely. PT, OT evaluation, possible ECF rehab. Guarded prognosis. Further recommendations to follow. Optimize bronchodilator treatment. KASHMIR / ERIKN: [id number] / MTDD
[2018-01-13] MEDS: AMIODARONE 200 MG TAB PO SCH ×2 (17:14→20:02)
[2018-01-13 20:49] LABS: Glucose,Whole Blood 134 mg/dL (75-99)
[2018-01-13] MEDS ORDERED: DILTIAZEM 5 MG/ML 5 ML VIAL IV STA (20:51)
[2018-01-14] MEDS: PIPERACILLIN-TAZOBACTAM 3.375 GM in DEXTROSE/WATER 1 50ML.BAG IVPB SCH ×4 (00:19→23:30)
[2018-01-14] MEDS: AMIODARONE 450 MG in DEXTROSE 5% IN WATER 250 ML IV SCH ×6 (06:07→22:07)
[2018-01-14 06:08] LABS: Glucose,Whole Blood 138 mg/dL (75-99)
[2018-01-14] MEDS: INSULIN ASPART 100 UNIT/ML 1 ML 10 ML VIAL SQ SCH ×4 (06:08→22:08)
[2018-01-14] MEDS: PANTOPRAZOLE 40 MG TABLET PO SCH (06:38)
[2018-01-14] MEDS: BUDESONIDE 1 MG/2 ML NEBU INHALATION SCH ×2 (08:41→20:35)
[2018-01-14] MEDS: IPRATROPIUM-ALBUTEROL 3 ML NEB INHALATION SCH ×4 (08:41→20:35)
[2018-01-14] MEDS: FORMOTEROL FUMARATE 20 MCG/2 ML NEBU INHALATION SCH ×2 (08:41→20:47)
[2018-01-14] MEDS: HEPARIN SODIUM,PORCINE 5,000 UNIT/ML 1 ML VIAL SQ SCH (08:43)
[2018-01-14] MEDS: METOPROLOL TARTRATE 25 MG TAB PO SCH (08:43)
[2018-01-14] MEDS: FUROSEMIDE 40 MG TAB PO SCH (08:43)
[2018-01-14] MEDS: amLODIPine 5 MG TAB PO SCH (08:43)
[2018-01-14] MEDS: CITALOPRAM HYDROBROMIDE 10 MG TAB PO SCH (08:43)
[2018-01-14] MEDS: CHOLECALCIFEROL 1,000 UNIT TAB PO SCH (08:43)
[2018-01-14] MEDS: metFORMIN 500 MG TAB PO SCH ×2 (08:43→17:28)
[2018-01-14] MEDS: LISINOPRIL 10 MG TAB PO SCH (08:43)
[2018-01-14 11:24] LABS: Glucose,Whole Blood 133 mg/dL (75-99)
--- NOTE | 2018-01-14 13:51 | P.PN ---
Subjective Progress Note Date: 01/14/18 72-year-old male with history of multiple medical problems including CVA, depression, COPD, diabetes, and blindness. The patient apparently presented to the emergency department on January 08 with complaints of abdominal pain particularly in the right upper quadrant. He was found to have a dilated gallbladder and large gallstones for which he underwent a laparoscopic cholecystectomy. His initial EKG on presentation here showed a sinus tachycardia. Radiology consultation was initially requested because the patient had mild abnormality in the troponins suggestive of a type to myocardial event. Secondary to supply and demand mismatch. Patient was noted to have episodes of atrial fibrillation for which cardiology was asked to revisit the patient. Yesterday the patient was apparently noted to have A. fib with RVR, patient was initiated on IV amiodarone drip, he was changed over to oral, and again reinitiated on IV. Continue the IV amiodarone today and continue him at 400 twice a day for one week. Continue his current dose of beta eduardo. Blood pressure 104/60 heart rate currently in the 80s. Echo shows normal LV function. Objective - Vital Signs Vital signs: Vital Signs Temp 97.0 F L 01/14/18 08:53 Pulse 80 01/14/18 12:09 Resp 18 01/14/18 04:22 BP 162/71 01/14/18 08:53 Pulse Ox 95 01/14/18 08:53 Intake & Output 01/13/18 01/14/18 01/14/18 18:59 06:59 18:59 Intake Total 245 447.202 240 Output Total 900 Balance 245 -452.798 240 Weight 83.5 kg Intake: IV 125 Amiodarone 450 mg In 75 Dextrose 5% in Water 250 ml @ 1 MG/MIN 34.53 mls/ hr IV .Q7H31M [facility] Rx#: [id number] Piperacillin-Tazobactam 3 50 .375 gm In Dextrose/Water 1 50ml.bag @ 12.5 mls/hr IVPB Q8HR [facility] Rx#: [id number] Intake, IV Titration 207.202 Amount Amiodarone 450 mg In 207.202 Dextrose 5% in Water 250 ml @ 1 MG/MIN 33.33 mls/ hr IV .Q7H31M [facility] Rx#: [id number] Oral 120 240 240 Output: Stool 900 Other: Voiding Method Diaper Diaper Diaper Incontinent Incontinent Incontinent # Voids 2 2 # Bowel Movements 1 - Exam No acute distress, confused Not requiring supplemental oxygen. HEENT examination is grossly unremarkable. Patient is legally blind. Mucous membranes are moist. No oral lesions. Neck supple. Full range of motion. No adenopathy thyromegaly or neck vein distention. Cardiovascular examination reveals regular rhythm rate. S1-S2 normal. No S3 or S4. No discernible murmur noted. Lungs reveal clear breath sounds. His sounds are equal bilaterally. No adventitious lung sounds including wheezes rhonchi or crackles. Abdomen soft with diffuse tenderness. Extremities are intact. No cyanosis clubbing or edema. Skin is without rash or lesion. Neurologic examination is brief but no - Labs CBC & Chem 7: 01/13/18 05:49 01/13/18 05:49 Labs: Abnormal Lab Results - Last 24 Hours (Table) 01/13/18 01/13/18 01/14/18 Range/Units 16:34 20:47 06:06 POC Glucose (mg/dL) 143 H 134 H 138 H (75-99) mg/dL 01/14/18 Range/Units 11:11 POC Glucose (mg/dL) 133 H (75-99) mg/dL Microbiology - Last 24 Hours (Table) 01/08/18 22:27 Blood Culture - Preliminary Blood No Growth after 120 hours Assessment and Plan Plan: Assessment #1 Right upper quadrant abdominal pain secondary to cholelithiasis and cholecystitis status post laparoscopic cholecystectomy. #2 History of COPD #3 History of blindness #4 History of hypertension #5 History of CVA with right-sided weakness #6 History of diabetes mellitus #7 History of hyperlipidemia #8Prior history of syncope #9. Cystoscopy atrial fibrillation #10 abnormal troponin, likely secondary to supply and demand mismatch. Echo reveals normal left ventricular systolic function. We'll discontinue the IV amiodarone and start the patient on oral amiodarone. Patient will require anticoagulation for stroke prevention, we'll start him on Eliquis and check regarding coverage. We will continue to follow. DNP note has been reviewed, I agree with a documented findings and plan of care. Patient was seen and examined.
[2018-01-14 16:10] LABS: Glucose,Whole Blood 163 mg/dL (75-99)
[2018-01-14] MEDS: METOPROLOL TARTRATE 50 MG TAB PO SCH ×2 (17:28→22:08)
[2018-01-14] MEDS: APIXABAN 5 MG TAB PO SCH ×2 (17:28→22:06)
--- NOTE | 2018-01-14 19:19 | PN ---
PROGRESS NOTE DATE OF SERVICE: 01/14/2018. INTERVAL HISTORY: This 72-year-old gentleman who was admitted with abdominal pain and possible acute cholelithiasis and cholecystitis, underwent laparoscopic cholecystectomy. Patient also had right lower lobe pneumonia also. Patient being closely monitored. Cardiology and pulmonary following the patient. No chest pain. No palpitations. No fever. EXAM: Alert and oriented times three. Pulse 82. Blood pressure 165/74, respiration 20, temperature normal, pulse ox 97 percent on 2 L. HEENT: Conjunctivae normal. Oral mucosa moist. Neck is no jugular venous distention. No carotid bruit. RESPIRATORY: Breath sounds diminished in the bases. A few scattered rhonchi. ABDOMEN: Soft, status post surgery. Central nervous system: No focal deficits. LABS: Accu-Cheks noted. WBC 10.9. ASSESSMENT: 1. Abdominal pain with possible acute cholelithiasis and cholecystitis status post laparoscopic cholecystectomy. 2. Chronic obstructive pulmonary disease acute exacerbation with possible right lower lobe pneumonia possibly gram-negative. 3. Possible atelectasis. 4. Troponin 0.113, indeterminate. 5. Possible type 2 myocardial infarction per Cardiology. 6. Increased lipase. 7. Increased WBC, improved. 8. Anemia of chronic disease. 9. Cerebrovascular accident, transient ischemic attack. 10.Diabetes mellitus type 2. 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 12.Hypertension. 13.Syncope. 14.Small T12 compression fracture. 15.FULL CODE. RECOMMENDATIONS AND DISCUSSION: Recommend to continue current medications, continue with monitoring, symptomatic treatment. Otherwise, at this time, I recommend continue to monitor. Continue the current medications. Continue the antibiotics. Continue the bronchodilators. Possible ECF rehab. Guarded prognosis. Further recommendations to follow. MMODL / IJN: [id number] /
[2018-01-14 20:34] LABS: Glucose,Whole Blood 180 mg/dL (75-99)
[2018-01-14] MEDS: AMIODARONE 200 MG TAB PO SCH (22:08)
[2018-01-15 05:59] LABS: Basophils % (A) 0 %; Eosinophils # (A) 0.1 k/uL (0-0.7); Eosinophils % (A) 1 %; HCT 35.7 % (39.0-53.0); Lymphocytes # (A) 1.5 k/uL (1.0-4.8); Lymphocytes % (A) 14 %; MCH 28.3 pg (25.0-35.0); MCHC 30.8 g/dL (31.0-37.0); MCV 92.1 fL (80.0-100.0); Mean Platelet Volume 7.3; Monocytes # (A) 0.9 k/uL (0-1.0); Monocytes % (A) 9 %; Neutrophils # (A) 7.9 k/uL (1.3-7.7); Neutrophils % (A) 75 %; Platelet Count 285 k/uL (150-450); RBC 3.88 m/uL (4.30-5.90); RDW 12.7 % (11.5-15.5); WBC 10.6 k/uL (3.8-10.6)
[2018-01-15] MEDS: ACETAMINOPHEN TAB 325 MG TAB PO PRN (06:05)
[2018-01-15 06:18] LABS: Glucose,Whole Blood 145 mg/dL (75-99)
[2018-01-15 06:20] LABS: Calcium 8.3 mg/dL (8.4-10.2); Potassium 3.2 mmol/L (3.5-5.1)
[2018-01-15] MEDS: PANTOPRAZOLE 40 MG TABLET PO SCH (06:47)
[2018-01-15] MEDS: INSULIN ASPART 100 UNIT/ML 1 ML 10 ML VIAL SQ SCH ×4 (06:48→21:38)
[2018-01-15] MEDS ORDERED: Potassium Replacement Protocol 1 EACH MISC MISCELLANE PRN ×3 (06:49→19:05)
[2018-01-15] MEDS: PIPERACILLIN-TAZOBACTAM 3.375 GM in DEXTROSE/WATER 1 50ML.BAG IVPB SCH ×3 (08:15→23:38)
[2018-01-15] MEDS: POTASSIUM CHLORIDE ER 20 MEQ TAB.ER PO SCH ×7 (08:15→21:39)
[2018-01-15] MEDS: metFORMIN 500 MG TAB PO SCH ×2 (08:16→16:16)
[2018-01-15] MEDS: FUROSEMIDE 40 MG TAB PO SCH (08:16)
[2018-01-15] MEDS: METOPROLOL TARTRATE 50 MG TAB PO SCH ×3 (08:16→21:39)
[2018-01-15] MEDS: LISINOPRIL 10 MG TAB PO SCH (08:16)
[2018-01-15] MEDS: CHOLECALCIFEROL 1,000 UNIT TAB PO SCH (08:16)
[2018-01-15] MEDS: APIXABAN 5 MG TAB PO SCH ×2 (08:17→20:31)
[2018-01-15] MEDS: AMIODARONE 200 MG TAB PO SCH ×2 (08:17→20:31)
[2018-01-15] MEDS: CITALOPRAM HYDROBROMIDE 10 MG TAB PO SCH (08:17)
[2018-01-15] MEDS: amLODIPine 5 MG TAB PO SCH (08:17)
[2018-01-15] MEDS: FORMOTEROL FUMARATE 20 MCG/2 ML NEBU INHALATION SCH ×2 (08:50→20:03)
[2018-01-15] MEDS: BUDESONIDE 1 MG/2 ML NEBU INHALATION SCH ×2 (08:51→20:04)
[2018-01-15] MEDS: IPRATROPIUM-ALBUTEROL 3 ML NEB INHALATION SCH ×4 (08:51→20:03)
--- NOTE | 2018-01-15 11:29 | XR ---
EXAMINATION TYPE: XR chest 1V portable DATE OF EXAM: 01/15/2018 COMPARISON: Prior chest 01/12/2018 HISTORY: Pneumonia TECHNIQUE: Single frontal view of the chest is obtained. FINDINGS: Patient is rotated. Heart size is likely stable. Improved visualization is noted at the ri ght hemidiaphragm, right lower lobe shows improved aeration. No evident pneumothorax or pleural effus ion. There are overlying cardiac leads. IMPRESSION: Rotated exam. Suspect improvement in aeration. Follow-up PA and lateral chest x-ray abdi olivas.
[2018-01-15 12:17] LABS: Glucose,Whole Blood 223 mg/dL (75-99)
--- NOTE | 2018-01-15 14:19 | P.PN ---
Subjective Progress Note Date: 01/15/18 72-year-old male with history of multiple medical problems including CVA, depression, COPD, diabetes, and blindness. The patient apparently presented to the emergency department on January 08 with complaints of abdominal pain particularly in the right upper quadrant. He was found to have a dilated gallbladder and large gallstones for which he underwent a laparoscopic cholecystectomy. His initial EKG on presentation here showed a sinus tachycardia. Radiology consultation was initially requested because the patient had mild abnormality in the troponins suggestive of a type to myocardial event. Secondary to supply and demand mismatch. Patient was noted to have episodes of atrial fibrillation for which cardiology was asked to revisit the patient. Yesterday the patient was apparently noted to have A. fib with RVR, patient was initiated on IV amiodarone drip, he was changed over to oral, and again reinitiated on IV. Continue the IV amiodarone today and continue him at 400 twice a day for one week. Continue his current dose of beta eduardo. Blood pressure 104/60 heart rate currently in the 80s. Echo shows normal LV function. 01/15/2018 Patient seen and examined this morning, much more alert, anticipating discharge home soon. In normal sinus rhythm with heart rate in the 70s today. Objective - Vital Signs Vital signs: Vital Signs Temp 96.9 F L 01/15/18 08:00 Pulse 72 01/15/18 12:29 Resp 18 01/15/18 12:00 BP 131/67 01/15/18 12:00 Pulse Ox 97 01/15/18 12:00 Intake & Output 01/14/18 01/15/18 01/15/18 18:59 06:59 18:59 Intake Total 462 423.002 444 Balance 462 423.002 444 Weight 88.5 kg Intake: IV 50 Piperacillin-Tazobactam 3 50 .375 gm In Dextrose/Water 1 50ml.bag @ 12.5 mls/hr IVPB Q8HR [facility] Rx#: [id number] Intake, IV Titration 133.002 Amount Amiodarone 450 mg In 133.002 Dextrose 5% in Water 250 ml @ 1 MG/MIN 33.33 mls/ hr IV .Q7H31M [facility] Rx#: [id number] Oral 462 240 444 Other: Voiding Method Diaper Diaper Incontinent Incontinent # Voids 2 3 2 # Bowel Movements 1 1 - Exam No acute distress, confused Not requiring supplemental oxygen. HEENT examination is grossly unremarkable. Patient is legally blind. Mucous membranes are moist. No oral lesions. Neck supple. Full range of motion. No adenopathy thyromegaly or neck vein distention. Cardiovascular examination reveals regular rhythm rate. S1-S2 normal. No S3 or S4. No discernible murmur noted. Lungs reveal clear breath sounds. His sounds are equal bilaterally. No adventitious lung sounds including wheezes rhonchi or crackles. Abdomen soft with diffuse tenderness. Extremities are intact. No cyanosis clubbing or edema. Skin is without rash or lesion. Neurologic examination is brief but no - Labs CBC & Chem 7: 01/15/18 05:34 01/15/18 12:07 Labs: Abnormal Lab Results - Last 24 Hours (Table) 01/14/18 01/14/18 01/15/18 Range/Units 16:08 20:33 05:34 RBC 3.88 L (4.30-5.90) m/uL Hgb 11.0 L (13.0-17.5) gm/dL Hct 35.7 L (39.0-53.0) % MCHC 30.8 L (31.0-37.0) g/dL Neutrophils # 7.9 H (1.3-7.7) k/uL Potassium (3.5-5.1) mmol/L Glucose (74-99) mg/dL POC Glucose (mg/dL) 163 H 180 H (75-99) mg/dL Calcium (8.4-10.2) mg/dL 01/15/18 01/15/18 01/15/18 Range/Units 05:34 06:16 11:12 RBC (4.30-5.90) m/uL Hgb (13.0-17.5) gm/dL Hct (39.0-53.0) % MCHC (31.0-37.0) g/dL Neutrophils # (1.3-7.7) k/uL Potassium 3.2 L (3.5-5.1) mmol/L Glucose 140 H (74-99) mg/dL POC Glucose (mg/dL) 145 H 223 H (75-99) mg/dL Calcium 8.3 L (8.4-10.2) mg/dL 01/15/18 Range/Units 12:07 RBC (4.30-5.90) m/uL Hgb (13.0-17.5) gm/dL Hct (39.0-53.0) % MCHC (31.0-37.0) g/dL Neutrophils # (1.3-7.7) k/uL Potassium 3.1 L (3.5-5.1) mmol/L Glucose (74-99) mg/dL POC Glucose (mg/dL) (75-99) mg/dL Calcium (8.4-10.2) mg/dL Microbiology - Last 24 Hours (Table) 01/08/18 22:27 Blood Culture - Final Blood No Growth after 144 hours Assessment and Plan Plan: Assessment #1 Right upper quadrant abdominal pain secondary to cholelithiasis and cholecystitis status post laparoscopic cholecystectomy. #2 History of COPD #3 History of blindness #4 History of hypertension #5 History of CVA with right-sided weakness #6 History of diabetes mellitus #7 History of hyperlipidemia #8Prior history of syncope #9. Cystoscopy atrial fibrillation #10 abnormal troponin, likely secondary to supply and demand mismatch. Echo reveals normal left ventricular systolic function. We will continue by mouth amiodarone. He may be able to be discharged once cleared by pulmonary and primary. We will follow him along with you now on an as-needed basis only, please don't hesitate to call if you have any questions at all. DNP note has been reviewed, I agree with a documented findings and plan of care. Patient was seen and examined.
[2018-01-15 14:35] VITALS: BMI 31.4
[2018-01-15 16:14] LABS: Glucose,Whole Blood 182 mg/dL (75-99)
--- NOTE | 2018-01-15 17:41 | PN ---
PROGRESS NOTE DATE OF SERVICE: 01/15/2018 This 72-year-old gentleman was admitted with abdominal pain had acute cholelithiasis and cholecystitis. Patient underwent laparoscopic cholecystectomy. The patient also had pneumonia of the right lower lobe. No chest pain. No palpitations. No fever. PHYSICAL EXAM: Alert and oriented x3. Pulse 69, blood pressure 130/60, respiration 18, temperature normal, pulse ox 97% on room air. HEENT: Conjunctivae normal. NECK: No jugular venous distention. No carotid bruit. No lymph node enlargement. CARDIOVASCULAR: S1, S2. RESPIRATORY: Breath sounds diminished in the bases. A few scattered rhonchi and crackles. ABDOMEN: Soft, obese, nontender. LEGS: No edema. NERVOUS SYSTEM: No focal deficit. LABS: WBC 10.2, hemoglobin 11, sodium 140, potassium 3.2. ASSESSMENT: 1. Abdominal pain with possible acute cholecystitis, cholecystitis, status post laparoscopic cholecystectomy. 2. Chronic obstructive pulmonary disease acute exacerbation with possible right lower lobe pneumonia and possibly gram-negative. 3. Possible atelectasis. 4. Troponin 0.113 indeterminate. 5. Possible type 2 myocardial infarction per Cardiology. 6. Increased lipase. 7. Increased WBC, improved. 8. Anemia of chronic disease. 9. Cerebrovascular accident, transient ischemic attack. 10.Diabetes mellitus type 2. 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 12.Hypertension. 13.Syncope. 14.Previous T12 compression fracture. 15.FULL CODE. RECOMMENDATIONS AND DISCUSSION: I recommend to continue current management and continue symptomatic treatment. Continue the bronchodilators. Continue incentive spirometry. Otherwise, at this time I would recommend continue the current management and symptomatic treatment, supplement potassium. We will initiate potassium supplementation. Continue to monitor. Continue the bronchodilators. Closely follow with Pulmonary and will consider possible ECF rehab once the patient is improved. Further recommendations to follow. MMODL / IJN: [id number] /
[2018-01-15 20:56] LABS: Glucose,Whole Blood 136 mg/dL (75-99)
[2018-01-16 05:53] LABS: Glucose,Whole Blood 135 mg/dL (75-99)
[2018-01-16 06:16] LABS: Basophils % (A) 0 %; Eosinophils # (A) 0.1 k/uL (0-0.7); Eosinophils % (A) 1 %; HCT 37.6 % (39.0-53.0); HGB 11.4 gm/dL (13.0-17.5); Hypochromasia Moderate; Lymphocytes # (A) 1.7 k/uL (1.0-4.8); Lymphocytes % (A) 18 %; MCH 28.6 pg (25.0-35.0); MCHC 30.2 g/dL (31.0-37.0); MCV 94.9 fL (80.0-100.0); Mean Platelet Volume 7.4; Monocytes # (A) 0.8 k/uL (0-1.0); Monocytes % (A) 8 %; Neutrophils # (A) 6.9 k/uL (1.3-7.7); Neutrophils % (A) 71 %; Platelet Count 349 k/uL (150-450); RBC 3.96 m/uL (4.30-5.90); RDW 12.8 % (11.5-15.5); WBC 9.8 k/uL (3.8-10.6)
[2018-01-16] MEDS: INSULIN ASPART 100 UNIT/ML 1 ML 10 ML VIAL SQ SCH ×2 (06:16→12:43)
[2018-01-16] MEDS: PANTOPRAZOLE 40 MG TABLET PO SCH (06:16)
[2018-01-16 06:41] LABS: Calcium 8.4 mg/dL (8.4-10.2)
[2018-01-16 07:12] LABS: Potassium 4.2 mmol/L (3.5-5.1)
[2018-01-16 08:21] VITALS: RESP 16
[2018-01-16] MEDS: BUDESONIDE 1 MG/2 ML NEBU INHALATION SCH (08:43)
[2018-01-16] MEDS: FORMOTEROL FUMARATE 20 MCG/2 ML NEBU INHALATION SCH (08:44)
[2018-01-16] MEDS: IPRATROPIUM-ALBUTEROL 3 ML NEB INHALATION SCH ×3 (08:44→16:22)
[2018-01-16] MEDS: CHOLECALCIFEROL 1,000 UNIT TAB PO SCH (09:29)
[2018-01-16] MEDS: AMIODARONE 200 MG TAB PO SCH (09:29)
[2018-01-16] MEDS: APIXABAN 5 MG TAB PO SCH (09:29)
[2018-01-16] MEDS: METOPROLOL TARTRATE 50 MG TAB PO SCH ×2 (09:29→15:39)
[2018-01-16] MEDS: LISINOPRIL 10 MG TAB PO SCH (09:29)
[2018-01-16] MEDS: CITALOPRAM HYDROBROMIDE 10 MG TAB PO SCH (09:29)
[2018-01-16] MEDS: metFORMIN 500 MG TAB PO SCH (09:29)
[2018-01-16] MEDS: FUROSEMIDE 40 MG TAB PO SCH (09:29)
[2018-01-16] MEDS: amLODIPine 5 MG TAB PO SCH (09:29)
[2018-01-16] MEDS: PIPERACILLIN-TAZOBACTAM 3.375 GM in DEXTROSE/WATER 1 50ML.BAG IVPB SCH ×2 (09:30→15:39)
[2018-01-16] MEDS: POTASSIUM CHLORIDE ER 20 MEQ TAB.ER PO SCH (09:30)
[2018-01-16 12:40] VITALS: BP 177/79; TEMP 97.4
[2018-01-16 12:46] VITALS: PULSE 72
--- NOTE | 2018-01-16 14:40 | P.DS ---
Providers Date of admission: 01/08/18 20:39 Expected date of discharge: 01/16/18 Attending physician: Tammie Shin Consults: 01/09/18 10:41 Consult Physician Routine Consulting Provider: Doug Salomon Consult Reason/Comments: gall stones Do you want consulting provider notified?: Yes 01/09/18 14:54 Consult Physician Routine Consulting Provider: Sidney Sharma Consult Reason/Comments: copd Do you want consulting provider notified?: Yes 01/10/18 10:44 Consult Physician Routine Consulting Provider: Desirae Juan Consult Reason/Comments: ECG changes, HR 120s, Surgical clearance, postitive trop Do you want consulting provider notified?: Yes 01/13/18 13:47 Consult Physician Routine Consulting Provider: Rai Belcher Consult Reason/Comments: svt Do you want consulting provider notified?: Already Contacted Primary care physician: Leonides Azul Hospital Course: Final Diagnoses: 1. Abdominal pain of acute cholecystitis, cholelithiasis status post laparoscopic cholecystectomy 2. Acute exacerbation COPD with possible right lower lobe pneumonia, possibly gram-negative 3. Atelectasis 4. Troponin 0.113 indeterminate, possible type II myocardial infarction per cardiology 5. Anemia of chronic disease 6. History of CVA, TIA with right-sided weakness 7. Diabetes mellitus type II 8. 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 Hypertension 10. Previous T12 compression fracture 11. Atrial fibrillation with RVR, , new onset, currently sinus rhythm. Hospital course: This a 72-year-old gentleman admitted with abdominal pain, acute cholelithiasis and cholecystitis, acute COPD exacerbation, possible right lower lobe pneumonia pneumonia, elevated troponin with possible type II [place], and multiple other medical issues. Evaluated by cardiology, surgery and pulmonary. Underwent laparoscopic cholecystectomy, tolerated procedure well. Maintained on IV antibiotics. Continues on oral antiarrhythmics, weaned off of IV amiodarone drip for A. fib with RVR. Converted to sinus rhythm. Significant clinical improvement. Patient has been cleared by all consults. Patient is being discharged to [facility] subacute rehab in a stable condition with guarded prognosis. Exam: General: Alert and oriented 3, no acute distressCV; S1 and S2, regular.LUNGS: Bilateral bases diminished, occasional scattered rhonchi and crackles.BAD: Soft , obese, nontender, positive bowel sounds.NERVOUS: No focal deficits. The impression and plan of care has been dictated as directed. : I performed a history and examination of this patient, discussed the same with the dictator. I agree with the dictator's note ,documented as a scribe. Any additional findings or plans will be noted. Time taken: 35 minutes Patient Condition at Discharge: Stable Plan - Discharge Summary Discharge Rx Participant: No New Discharge Prescriptions: New amLODIPine [Norvasc] 5 mg PO DAILY tab Amoxic-Pot Clav 875-125Mg [Augmentin 875-125] 1 tab PO Q12HR #14 tablet Apixaban [Eliquis] 5 mg PO BID tab INSULIN LISPRO (HumaLOG) [humaLOG] 0 unit SQ ACHS #1 vial Ipratropium-Albuterol Nebulize [Duoneb 0.5 mg-3 mg/3 ml Soln] 3 ml INHALATION Q4H PRN ampul.neb PRN Reason: Shortness Of Breath Or Wheezing Ipratropium-Albuterol Nebulize [Duoneb 0.5 mg-3 mg/3 ml Soln] 3 ml INHALATION RT-QID ampul.neb Lisinopril [Zestril] 10 mg PO DAILY@0900 tab Loperamide [Imodium] 2 mg PO TID PRN #9 cap PRN Reason: Diarrhea Metoprolol Tartrate [Lopressor] 50 mg PO TID tab Potassium Chloride ER [K-Dur 20] 20 meq PO DAILY tab.er.prt Amiodarone [Cordarone] 400 mg PO BID #60 tab Continue metFORMIN HCL [Glucophage] 500 mg PO BID@0900,1700 Aspirin 81 mg PO DAILY@0900 Acetaminophen [Tylenol Arthritis] 650 mg PO Q6H PRN PRN Reason: Pain Pantoprazole [Protonix] 40 mg PO DAILY Furosemide [Lasix] 40 mg PO DAILY #1 tablet Budesonide [Pulmicort] 1 mg INHALATION RT-BID Cholecalciferol (Vitamin D3) [Vitamin D3] 2,000 unit PO DAILY Ferrous Sulfate [Iron (65 MG Elemental)] 325 mg PO DAILY Citalopram Hydrobromide [CeleXA] 10 mg PO DAILY Discontinued Metoprolol Tartrate [Lopressor] 25 mg PO BID@0900,1700 Lisinopril [Prinivil] 5 mg PO DAILY@0900 Albuterol Nebulized [Ventolin Nebulized] 2.5 mg INHALATION RT-Q6H PRN PRN Reason: Shortness Of Breath Ipratropium-Albuterol Nebulize [Duoneb 0.5 mg-3 mg/3 ml Soln] 3 ml INHALATION RT-QID ampul.neb Insulin Lispro [humaLOG Kwikpen] See Protocol SQ QID Discharge Medication List metFORMIN HCL [Glucophage] 500 mg PO BID@0900,1700 05/05/16 [History] Aspirin 81 mg PO DAILY@0900 08/11/17 [History] Acetaminophen [Tylenol Arthritis] 650 mg PO Q6H PRN 08/20/17 [History] Pantoprazole [Protonix] 40 mg PO DAILY 08/20/17 [History] Furosemide [Lasix] 40 mg PO DAILY #1 tablet 08/29/17 [Rx] Budesonide [Pulmicort] 1 mg INHALATION RT-BID 01/08/18 [History] Cholecalciferol (Vitamin D3) [Vitamin D3] 2,000 unit PO DAILY 01/08/18 [History] Citalopram Hydrobromide [CeleXA] 10 mg PO DAILY 01/08/18 [History] Ferrous Sulfate [Iron (65 MG Elemental)] 325 mg PO DAILY 01/08/18 [History] Amiodarone [Cordarone] 400 mg PO BID #60 tab 01/16/18 [Rx] Amoxic-Pot Clav 875-125Mg [Augmentin 875-125] 1 tab PO Q12HR #14 tablet [Rx] Apixaban [Eliquis] 5 mg PO BID tab 01/16/18 [Rx] INSULIN LISPRO (HumaLOG) [humaLOG] 0 unit SQ ACHS #1 vial 01/16/18 [Rx] Ipratropium-Albuterol Nebulize [Duoneb 0.5 mg-3 mg/3 ml Soln] 3 ml INHALATION Q4H PRN ampul.neb 01/16/18 [Rx] Ipratropium-Albuterol Nebulize [Duoneb 0.5 mg-3 mg/3 ml Soln] 3 ml INHALATION RT -QID ampul.neb 01/16/18 [Rx] Lisinopril [Zestril] 10 mg PO DAILY@0900 tab 01/16/18 [Rx] Loperamide [Imodium] 2 mg PO TID PRN #9 cap 01/16/18 [Rx] Metoprolol Tartrate [Lopressor] 50 mg PO TID tab 01/16/18 [Rx] Potassium Chloride ER [K-Dur 20] 20 meq PO DAILY tab.er.prt 01/16/18 [Rx] amLODIPine [Norvasc] 5 mg PO DAILY tab 01/16/18 [Rx] Follow up Appointment(s)/Referral(s): Doug Salomon MD [Medical Doctor] - 1 Week Leonides Azul MD [Primary Care Provider] - 3 Days () Sidney Sharma DO [Doctor of Osteopathic Medicine] - 1 Week Patient Instructions/Handouts: Preventing Infections (GEN), Laparoscopic Cholecystectomy (DC) Activity/Diet/Wound Care/Special Instructions: LEIGH CHAVARRIA on discharge confirm cardiology follow-up appointment per to discharge. CBC, BMP in 3 days Activity: As tolerated Diet: Cardiac, consistent carb
[2018-01-16 16:39] LABS: Glucose,Whole Blood 179 mg/dL (75-99)
[2018-01-16 16:47] LABS: Glucose,Whole Blood 155 mg/dL (75-99)
== END 2018-01-16 17:53 | DRG 417 ==
LOC: EC 15:14 → 4MS4W 20:39 → 6SEL 22:49
PROVIDERS: ADMIT Hospitalist; ATTEND Hospitalist
PROC: 0FT44ZZ Resection of Gallbladder, Percutaneous Endoscopic Approach (ICD-10-PCS; principal; 2018-01-10 18:00)
DX: K80.00 Calculus of gallbladder with acute cholecystitis without obstruction (principal); J15.6 Pneumonia due to other Gram-negative bacteria; I21.A1 Myocardial infarction type 2; I47.1 Supraventricular tachycardia; I69.351 Hemiplegia and hemiparesis following cerebral infarction affecting right dominant side; J44.0 Chronic obstructive pulmonary disease with (acute) lower respiratory infection; J44.1 Chronic obstructive pulmonary disease with (acute) exacerbation; J98.11 Atelectasis; M48.54XA Collapsed vertebra, not elsewhere classified, thoracic region, initial encounter for fracture; D63.8 Anemia in other chronic diseases classified elsewhere; E11.9 Type 2 diabetes mellitus without complications; E78.5 Hyperlipidemia, unspecified; E86.0 Dehydration; F03.90 Unspecified dementia, unspecified severity, without behavioral disturbance, psychotic disturbance, mood disturbance, and anxiety; H40.9 Unspecified glaucoma; H54.8 Legal blindness, as defined in USA; I10 Essential (primary) hypertension; I48.91 Unspecified atrial fibrillation; K21.9 Gastro-esophageal reflux disease without esophagitis; K56.41 Fecal impaction; R32 Unspecified urinary incontinence; Z79.82 Long term (current) use of aspirin; Z79.4 Long term (current) use of insulin; Z79.899 Other long term (current) drug therapy; Z83.3 Family history of diabetes mellitus; Z87.891 Personal history of nicotine dependence; Z91.81 History of falling; E55.9 Vitamin D deficiency, unspecified; Z79.51 Long term (current) use of inhaled steroids; R55 Syncope and collapse; F32.9 Major depressive disorder, single episode, unspecified; Z88.5 Allergy status to narcotic agent
CPT/HCPCS: 36415; 71045; 71046; 74018; 74176; 76705; 80048; 80053; 81003; 82150; 82550; 82553; 83036; 83605; 83690; 83735; 84132; 84484; 85025; 87040; 87324; 88304; 93005; 93306; 94640; 94760; 96361; 96365; 96366; 96375; 99285

== ENCOUNTER 2018-02-03 18:20 | Inpatient (IN) | payer MEDICARE, OTHER ==
[2018-02-03] MEDS ORDERED: SODIUM CHLORIDE 0.9% 500 ML IV STA (18:33)
[2018-02-03] MEDS ORDERED: SODIUM CHLORIDE 0.9% 1,000 ML IV STA ×2 (18:33)
--- NOTE | 2018-02-03 18:42 | ED ---
General Adult HPI - General Chief complaint: Nausea/Vomiting/Diarrhea Stated complaint: n & V Time Seen by Provider: 02/03/18 18:25 Source: EMS, Caregiver Mode of arrival: EMS Limitations: altered mental status - History of Present Illness Initial comments: Patient is a 72-year-old male presenting for nausea/vomiting/diarrhea. Patient is clinically blind and is alert and oriented 2 and states that he has no pain. Per EMS, the patient had nausea/vomiting/diarrhea today was borderline hypotensive with systolic pressures measuring in the low 90s. He is unable to give complete review of systems as he is refusing to answer questions. - Related Data Home Medications Medication Instructions Recorded Confirmed metFORMIN HCL [Glucophage] 500 mg PO BID@0900,1700 05/05/16 01/08/18 Aspirin 81 mg PO DAILY@0900 08/11/17 01/08/18 Acetaminophen [Tylenol Arthritis] 650 mg PO Q6H PRN 08/20/17 01/08/18 Pantoprazole [Protonix] 40 mg PO DAILY 08/20/17 01/08/18 Budesonide [Pulmicort] 1 mg INHALATION RT-BID 01/08/18 01/08/18 Cholecalciferol (Vitamin D3) 2,000 unit PO DAILY 01/08/18 01/08/18 [Vitamin D3] Citalopram Hydrobromide [CeleXA] 10 mg PO DAILY 01/08/18 01/08/18 Ferrous Sulfate [Iron (65 MG 325 mg PO DAILY 01/08/18 01/08/18 Elemental)] Previous Rx's Medication Instructions Recorded Furosemide [Lasix] 40 mg PO DAILY #1 tablet 08/29/17 Amiodarone [Cordarone] 400 mg PO BID #60 tab 01/16/18 Amoxic-Pot Clav 875-125Mg 1 tab PO Q12HR #14 tablet 01/16/18 [Augmentin 875-125] Apixaban [Eliquis] 5 mg PO BID tab 01/16/18 INSULIN LISPRO (HumaLOG) [humaLOG] 0 unit SQ ACHS #1 vial 01/16/18 Ipratropium-Albuterol Nebulize 3 ml INHALATION Q4H PRN ampul.neb 01/16/18 [Duoneb 0.5 mg-3 mg/3 ml Soln] Ipratropium-Albuterol Nebulize 3 ml INHALATION RT-QID ampul.neb 01/16/18 [Duoneb 0.5 mg-3 mg/3 ml Soln] Lisinopril [Zestril] 10 mg PO DAILY@0900 tab 01/16/18 Loperamide [Imodium] 2 mg PO TID PRN #9 cap 01/16/18 Metoprolol Tartrate [Lopressor] 50 mg PO TID tab 01/16/18 Potassium Chloride ER [K-Dur 20] 20 meq PO DAILY tab.er.prt 01/16/18 amLODIPine [Norvasc] 5 mg PO DAILY tab 01/16/18 Allergies Allergy/AdvReac Type Severity Reaction Status Date / Time hydrocodone bitartrate AdvReac Nausea Verified 02/03/18 18:25 [From Vicodin] Review of Systems ROS Statement: Those systems with pertinent positive or pertinent negative responses have been documented in the HPI. Unable to complete full review of systems ROS Other: All systems not noted in ROS Statement are negative. 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 ddd, old t12 compression fx, spopndylothesis ( per chest xray), wears attend,incont stool/urine. bed bound w / assist to chair. per [facility]- pt's baseline is alert,cooperative and knows person/place and normally he has a very good appetite-"they know he not feeling well when he does'nt feel like eating". History of Any Multi-Drug Resistant Organisms: None Reported Past Surgical History: No Surgical Hx Reported Additional Past Surgical History / Comment(s): unknown Past Anesthesia/Blood Transfusion Reactions: No Reported Reaction Past Psychological History: No Psychological Hx Reported Smoking Status: Former smoker Past Alcohol Use History: None Reported Past Drug Use History: None Reported - Past Family History Father Family Medical History: Diabetes Mellitus Mother Family Medical History: Dementia, Diabetes Mellitus Brother(s) Family Medical History: Unable to Obtain General Exam - General Exam Comments Initial Comments: Constitutional: Pt is oriented to person, place, . Pt appears well-developed and well-nourished. No distress. HENT: Head: Normocephalic and atraumatic. Eyes: EOM are normal. Cataract present bilaterally Neck: Normal range of motion. Neck supple. Cardiovascular: Normal rate, regular rhythm, S1 normal, S2 normal and normal heart sounds. Exam reveals no gallop and no friction rub. No murmur heard. Pulmonary/Chest: Effort normal and breath sounds normal. No tachypnea and no bradypnea. No respiratory distress. No wheezes or rales noted. Abdominal: Soft. Bowel sounds are normal. Pt exhibits no shifting dullness, no distension, no pulsatile liver, no fluid wave, no abdominal bruit and no ascites. There is no tenderness. There is no rigidity, no rebound, no guarding, no tenderness at McBurney's point and negative Harris's sign. Musculoskeletal: Normal range of motion. Neurological: Pt is alert and oriented to person, place. No cranial nerve deficit. Skin: Skin is warm and dry. No rash noted. Pt is not diaphoretic. No erythema. No pallor. Psychiatric: Pt has a normal mood and affect. Pt behavior is normal. Thought content normal. Limitations: altered mental status Course Vital Signs 02/03/18 02/03/18 18:25 20:15 Temperature 96.8 F L Pulse Rate 70 62 Respiratory 16 18 Rate Blood Pressure 94/55 157/69 O2 Sat by Pulse 100 100 Oximetry - Reevaluation(s) Reevaluation #1: 02/03/18 20:32 has received 1500 mL normal saline and blood pressure is increased dramatically. EKG Findings - EKG Comments: EKG Findings:: EKG shows normal sinus rhythm of 66 bpm, MI interval 184, QRS 142 , QTC 503. There is right bundle branch block noted. Medical Decision Making - Medical Decision Making Auditory studies showed that there was a leukocytosis of 12.2 but no clear source of infection is identified as urinalysis was negative and chest x-ray showed no evidence of infiltrate. However, basic metabolic panel did show evidence of acute kidney injury as a creatinine was proximally 1.01 month ago and is now elevated to 1.87 and a GFR has decreased to 35. There is also mild pancreatitis with lipase measuring 473. BNP was also elevated at 1800 but fluid was given initially as he was marginally hypotensive and he was fluid responsive. CT of the head was not performed as there was no evidence of altered mental status. Because of the acute kidney injury, the patient will be admitted to hospital for continued fluid hydration. Explained all labs and diagnostic test results and that we will admit patient to hospital. Pt is agreeable to plan and case has been discussed with Dr. Rendon and they agree to accept the pt. - Lab Data Result diagrams: 02/03/18 19:00 02/03/18 19:00 Lab Results 02/03/18 02/03/18 02/03/18 Range/Units 19:00 19:00 19:00 WBC 12.2 H (3.8-10.6) k/uL RBC 4.52 (4.30-5.90) m/uL Hgb 13.1 (13.0-17.5) gm/dL Hct 41.5 (39.0-53.0) % MCV 91.7 (80.0-100.0) fL MCH 28.9 (25.0-35.0) pg MCHC 31.5 (31.0-37.0) g/dL RDW 13.2 (11.5-15.5) % Plt Count 277 (150-450) k/uL Neutrophils % 74 % Lymphocytes % 17 % Monocytes % 7 % Eosinophils % 1 % Basophils % 0 % Neutrophils # 9.0 H (1.3-7.7) k/uL Lymphocytes # 2.0 (1.0-4.8) k/uL Monocytes # 0.8 (0-1.0) k/uL Eosinophils # 0.1 (0-0.7) k/uL Basophils # 0.0 (0-0.2) k/uL Sodium 138 (137-145) mmol/L Potassium 4.5 (3.5-5.1) mmol/L Chloride 103 (98-107) mmol/L Carbon Dioxide 21 L (22-30) mmol/L Anion Gap 14 mmol/L BUN 45 H (9-20) mg/dL Creatinine 1.87 H (0.66-1.25) mg/dL Est GFR (CKD-EPI)AfAm 40 (>60 ml/min/1.73 sqM) Est GFR (CKD-EPI)NonAf 35 (>60 ml/min/1.73 sqM) Glucose 191 H (74-99) mg/dL Plasma Lactic Acid Daniel (0.7-2.0) mmol/L Calcium 8.7 (8.4-10.2) mg/dL Magnesium 1.4 L (1.6-2.3) mg/dL Total Bilirubin 0.6 (0.2-1.3) mg/dL AST 20 (17-59) U/L ALT 22 (21-72) U/L Alkaline Phosphatase 150 H (38-126) U/L Troponin I 0.022 (0.000-0.034) ng/mL NT-Pro-B Natriuret Pep pg/mL Total Protein 6.3 (6.3-8.2) g/dL Albumin 3.5 (3.5-5.0) g/dL Lipase 473 H (23-300) U/L Urine Color Urine Appearance (Clear) Urine pH (5.0-8.0) Ur Specific [place] (1.001-1.035) Urine Protein (Negative) Urine Glucose (UA) (Negative) Urine Ketones (Negative) Urine Blood (Negative) Urine Nitrite (Negative) Urine Bilirubin (Negative) Urine Urobilinogen (<2.0) mg/dL Ur Leukocyte Esterase (Negative) 02/03/18 02/03/18 02/03/18 Range/Units 19:03 19:08 20:20 WBC (3.8-10.6) k/uL RBC (4.30-5.90) m/uL Hgb (13.0-17.5) gm/dL Hct (39.0-53.0) % MCV (80.0-100.0) fL MCH (25.0-35.0) pg MCHC (31.0-37.0) g/dL RDW (11.5-15.5) % Plt Count (150-450) k/uL Neutrophils % % Lymphocytes % % Monocytes % % Eosinophils % % Basophils % % Neutrophils # (1.3-7.7) k/uL Lymphocytes # (1.0-4.8) k/uL Monocytes # (0-1.0) k/uL Eosinophils # (0-0.7) k/uL Basophils # (0-0.2) k/uL Sodium (137-145) mmol/L Potassium (3.5-5.1) mmol/L Chloride (98-107) mmol/L Carbon Dioxide (22-30) mmol/L Anion Gap mmol/L BUN (9-20) mg/dL Creatinine (0.66-1.25) mg/dL Est GFR (CKD-EPI)AfAm (>60 ml/min/1.73 sqM) Est GFR (CKD-EPI)NonAf (>60 ml/min/1.73 sqM) Glucose (74-99) mg/dL Plasma Lactic Acid Daniel 2.0 (0.7-2.0) mmol/L Calcium (8.4-10.2) mg/dL Magnesium (1.6-2.3) mg/dL Total Bilirubin (0.2-1.3) mg/dL AST (17-59) U/L ALT (21-72) U/L Alkaline Phosphatase (38-126) U/L Troponin I (0.000-0.034) ng/mL NT-Pro-B Natriuret Pep 1800 pg/mL Total Protein (6.3-8.2) g/dL Albumin (3.5-5.0) g/dL Lipase (23-300) U/L Urine Color Light Yellow Urine Appearance Clear (Clear) Urine pH 5.0 (5.0-8.0) Ur Specific [place] 1.007 (1.001-1.035) Urine Protein Negative (Negative) Urine Glucose (UA) Negative (Negative) Urine Ketones Negative (Negative) Urine Blood Negative (Negative) Urine Nitrite Negative (Negative) Urine Bilirubin Negative (Negative) Urine Urobilinogen <2.0 (<2.0) mg/dL Ur Leukocyte Esterase Negative (Negative) Disposition Clinical Impression: Nausea vomiting and diarrhea, Acute kidney injury Disposition: ADMITTED IP TO THIS [facility] Condition: Fair Referrals: Chevy Thomas DO [Primary Care Provider] - 1-2 days Decision to Admit Reason: Admit from EC Decision Date: 02/03/18 Decision Time: 20:37
[2018-02-03 19:14] LABS: Basophils % (A) 0 %; Eosinophils # (A) 0.1 k/uL (0-0.7); Eosinophils % (A) 1 %; HCT 41.5 % (39.0-53.0); HGB 13.1 gm/dL (13.0-17.5); Lymphocytes % (A) 17 %; MCH 28.9 pg (25.0-35.0); MCHC 31.5 g/dL (31.0-37.0); MCV 91.7 fL (80.0-100.0); Mean Platelet Volume 7.7; Monocytes # (A) 0.8 k/uL (0-1.0); Monocytes % (A) 7 %; Neutrophils % (A) 74 %; Platelet Count 277 k/uL (150-450); RBC 4.52 m/uL (4.30-5.90); RDW 13.2 % (11.5-15.5); WBC 12.2 k/uL (3.8-10.6)
[2018-02-03 19:15] LABS: Appearance,Urine Clear (Clear); Bilirubin,Urine Negative (Negative); Blood,Urine Negative (Negative); Color,Urine Light Yellow; Glucose,Urine (UA) Negative (Negative); Ketones,Urine Negative (Negative); Leukocyte Esterase,Urine Negative (Negative); Nitrite,Urine Negative (Negative); Protein,Urine Negative (Negative); Specific Gravity,Urine 1.007 (1.001-1.035); Urobilinogen,Urine <2.0 mg/dL (<2.0)
--- NOTE | 2018-02-03 19:34 | XR ---
EXAMINATION TYPE: XR chest 1V portable DATE OF EXAM: 02/03/2018 COMPARISON: Chest x-ray January 15, 2018 HISTORY: Altered mental status and weakness. Chest pain. TECHNIQUE: Single AP portable frontal view of the chest is obtained. FINDINGS: There is chronic parenchymal change without suspicious focal air space opacity, pleural ef fusion, or pneumothorax seen. Low lung volumes are redemonstrated. The cardiac silhouette size is en larged. The osseous structures are demineralized. IMPRESSION: Low lung volumes and chronic parenchymal changes with cardiomegaly but no acute pulmonar y process currently.
[2018-02-03 19:35] LABS: Albumin 3.5 g/dL (3.5-5.0); Calcium 8.7 mg/dL (8.4-10.2); Magnesium 1.4 mg/dL (1.6-2.3); Potassium 4.5 mmol/L (3.5-5.1); Total Bilirubin 0.6 mg/dL (0.2-1.3); Total Protein 6.3 g/dL (6.3-8.2)
--- NOTE | 2018-02-03 20:08 | CT ---
EXAMINATION TYPE: CT abdomen pelvis wo con DATE OF EXAM: 02/03/2018 HISTORY: Abdominal pain, diarrhea CT DLP: 894 mGycm. Automated Exposure Control for Dose Reduction was Utilized. TECHNIQUE: CT scan of the abdomen and pelvis is performed without oral or IV contrast. COMPARISON: CT abdomen and pelvis January 08, 2018 FINDINGS: Within the limitations of a non-contrast study, the following observations are made. LUNG BASES: There is small to tiny left pleural effusion with associated compressive atelectasis. The re is tiny right pleural effusion. There is tiny pericardial effusion redemonstrated. Coronary artery calcification is again seen which is noted marker for coronary artery disease. Cardiomegaly is redem onstrated. LIVER/GB: Interval cholecystectomy changes are noted. PANCREAS: There is new mild to moderate heterogeneous ill-defined fluid and fat stranding surrounding the pancreas fairly diffusely. No well-formed fluid collection is seen. SPLEEN: No significant abnormality is seen. ADRENALS: A 1.2 cm low dense nodule consistent with lipid rich adenoma right adrenal gland image 28 i s present. There is thickening of left adrenal gland consistent with benign hyperplasia. KIDNEYS: No renal stones or hydronephrosis is present bilaterally. There is mild perinephric fat stra nding bilaterally. BOWEL: Normal-appearing appendix from cecum is seen. There is no suspicious small large bowel dilatat ion GENITAL ORGANS: Central calcifications in the prostate are seen. LYMPH NODES: No greater than 1cm abdominal or pelvic lymph nodes are appreciated. OSSEOUS STRUCTURES: Moderate 2 severe multilevel anterior and lateral spurring in the thoracic spine is present. There is multilevel facet arthropathy in the mid to lower lumbar spine. There is moderate axial joint space loss and spurring of both hips. OTHER: There is moderate-sized umbilical hernia containing fat and tiny mesenteric vessels. There is moderate calcified plaque of the aorta extending into branch vessels redemonstrated IMPRESSION: CT findings are suggestive of a moderate acute pancreatitis, clinical and pancreatic lab correlation is advised.
[2018-02-03] MEDS ORDERED: NALOXONE 0.4 MG/ML 1 ML VIAL IV PRN (21:15)
[2018-02-03] MEDS ORDERED: ONDANSETRON 4 MG/2 ML VIAL IVP PRN (21:15)
[2018-02-03 22:31] VITALS: BMI 31.8
[2018-02-04 00:50] LABS: Basophils % (A) 0 %; Eosinophils % (A) 0 %; HCT 40.4 % (39.0-53.0); HGB 12.4 gm/dL (13.0-17.5); Hypochromasia Slight; Lymphocytes # (A) 0.9 k/uL (1.0-4.8); Lymphocytes % (A) 8 %; MCH 28.8 pg (25.0-35.0); MCHC 30.7 g/dL (31.0-37.0); MCV 93.7 fL (80.0-100.0); Monocytes # (A) 0.5 k/uL (0-1.0); Monocytes % (A) 5 %; Neutrophils # (A) 8.8 k/uL (1.3-7.7); Neutrophils % (A) 85 %; Platelet Count 184 k/uL (150-450); RBC 4.31 m/uL (4.30-5.90); RDW 13.1 % (11.5-15.5); WBC 10.3 k/uL (3.8-10.6)
[2018-02-04] MEDS ORDERED: Magnesium Replacement Protocol 1 EACH MISC MISCELLANE PRN (06:56)
[2018-02-04 07:27] LABS: Glucose,Whole Blood 115 mg/dL (75-99)
[2018-02-04] MEDS: MAGNESIUM SULFATE-D5W PMX 1 GM in DEXTROSE/WATER 1 100ML.BAG IVPB SCH ×3 (07:39→10:27)
[2018-02-04 08:58] LABS: HCT 33.6 % (39.0-53.0); HGB 10.7 gm/dL (13.0-17.5); Hypochromasia Slight; MCH 29.4 pg (25.0-35.0); MCHC 31.8 g/dL (31.0-37.0); MCV 92.2 fL (80.0-100.0); Mean Platelet Volume 7.8; Platelet Count 228 k/uL (150-450); RBC 3.64 m/uL (4.30-5.90); RDW 13.2 % (11.5-15.5); WBC 8.6 k/uL (3.8-10.6)
[2018-02-04 09:13] LABS: Calcium 8.1 mg/dL (8.4-10.2); Potassium 4.6 mmol/L (3.5-5.1)
[2018-02-04 12:15] LABS: Glucose,Whole Blood 145 mg/dL (75-99)
[2018-02-04] MEDS ORDERED: ONDANSETRON 4 MG TAB PO PRN (12:17)
[2018-02-04] MEDS ORDERED: LOPERAMIDE 2 MG CAP PO PRN (12:17)
[2018-02-04] MEDS ORDERED: BISACODYL 10 MG SUPP RECTAL PRN (12:17)
[2018-02-04] MEDS ORDERED: ACETAMINOPHEN TAB 325 MG TAB PO PRN (12:17)
[2018-02-04] MEDS ORDERED: IPRATROPIUM-ALBUTEROL 3 ML NEB INHALATION PRN (12:17)
[2018-02-04] MEDS ORDERED: BISMUTH SUBSALICYLATE 4,192 MG/240 ML BOTTLE PO PRN (12:17)
[2018-02-04] MEDS: BUDESONIDE 1 MG/2 ML NEBU INHALATION SCH ×2 (13:22→20:55)
[2018-02-04] MEDS: IPRATROPIUM-ALBUTEROL 3 ML NEB INHALATION SCH ×3 (13:22→20:55)
[2018-02-04] MEDS: METOPROLOL TARTRATE 12.5 MG TAB PO SCH (13:44)
[2018-02-04] MEDS: PANTOPRAZOLE 40 MG TABLET PO SCH (13:44)
[2018-02-04] MEDS: amLODIPine 5 MG TAB PO SCH (13:44)
[2018-02-04] MEDS: CITALOPRAM HYDROBROMIDE 10 MG TAB PO SCH (13:44)
--- NOTE | 2018-02-04 16:36 | P.CONS ---
History of Present Illness - Reason for Consult Consult date: 02/04/18 Anemia, possible GI bleed Requesting physician: Luis Rendon - Chief Complaint Nausea, vomiting, diarrhea - History of Present Illness The patient is a pleasant 72-year-old male who presents to the hospital with complaints of nausea, vomiting and diarrhea via EMS who has a past medical history significant for COPD, diabetes mellitus and hypertension. History was taken from the patient combination with evaluation of the electronic medical record and discussion with the nursing staff. Per the patient he had multiple episodes of loose bowel movements prior to presentation. He is legally blind and unable to state whether she saw any blood with the bowel movements. He also had multiple episodes of nausea and vomiting. The patient denies any associated abdominal pain with the episode. He was noted to be hypotensive per the EMS. Since coming to the hospital the patient has had improvement of his symptoms and is currently lying comfortable in bed with no acute complaints. The patient had a hemoglobin of 13.1 on presentation which subsequently fell to 10.7. This morning he had some pinkish mucousy discharge per rectum. He also had stool sent which was positive for occult blood. This morning he had a normal brown nonbloody bowel movement. The patient denies any prior endoscopic evaluation. Stool studies on presentation were negative. He is currently also receiving treatment for an increase in his creatinine. Past endoscopic history: Denies Review of Systems REVIEW OF SYSTEMS: CARDIOPULMONARY: Denies chest pain or shortness of breath. GENITOURINARY: No dysuria or hematuria. MUSCULOSKELETAL: No weakness reported. SKIN: Denies being told of any new rashes or lesions, jaundice or pallor. PSYCHIATRIC: Denies any depression or anxiety. NEUROLOGY: Denies headache, denies any new focal deficits. EARS: No tinnitus, discharge or new hearing loss. NOSE: No discharge or congestion. EYES: No pain in eyes or change in vision, at baseline the patient is legally blind. CONSTITUTIONAL: No recent weight loss. No fever, chills, night sweats. 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 DDD, hx of T12 compression fx , spondylothesis, urinary/bowel incontinence, bed bound w/ assist to chair per [facility]. A+O to person/place = baseline, cholecystitis, anemia, hx of respiratory failure w/ hypoxia. History of Any Multi-Drug Resistant Organisms: None Reported Past Surgical History: No Surgical Hx Reported, Cholecystectomy Additional Past Surgical History / Comment(s): Laparoscopic cholecystectomy Past Anesthesia/Blood Transfusion Reactions: No Reported Reaction Past Psychological History: Depression Additional Psychological History / Comment(s): Pt. resides at [facility]. He is legally blind bilaterally. Smoking Status: Former smoker Past Alcohol Use History: None Reported Additional Past Alcohol Use History / Comment(s): Started smoking about 1965 and quit in 2012. Past Drug Use History: None Reported - Past Family History Father Family Medical History: Diabetes Mellitus Mother Family Medical History: Dementia, Diabetes Mellitus Brother(s) Family Medical History: Unable to Obtain Medications and Allergies Home Medications Medication Instructions Recorded Confirmed Type metFORMIN HCL [Glucophage] 500 mg PO BID@0900,1700 05/05/16 02/04/18 History Aspirin 81 mg PO DAILY@89908/11/17 02/04/18 History Acetaminophen [Tylenol Arthritis] 650 mg PO Q6H PRN 08/20/17 02/04/18 History Pantoprazole [Protonix] 40 mg PO DAILY@59908/20/17 02/04/18 History Budesonide [Pulmicort] 1 mg INHALATION RT-BID@0900,209901/08/18 02/04/18 History Cholecalciferol (Vitamin D3) 2,000 unit PO DAILY@89901/08/18 02/04/18 History [Vitamin D3] Citalopram Hydrobromide [CeleXA] 10 mg PO DAILY@89901/08/18 02/04/18 History Ferrous Sulfate [Iron (65 MG 325 mg PO DAILY@89901/08/18 02/04/18 History Elemental)] Amiodarone [Cordarone] 200 mg PO DAILY@89902/04/18 02/04/18 History Apixaban [Eliquis] 5 mg PO BID@0900,2100 02/04/18 02/04/18 History Bisacodyl [Dulcolax] 10 mg RECTAL Q48H PRN 02/04/18 02/04/18 History Bismuth Subsalicylate 30 ml PO Q4H PRN 02/04/18 02/04/18 History [Pepto-Bismol] Furosemide [Lasix] 40 mg PO DAILY@59902/04/18 02/04/18 History INSULIN LISPRO (HumaLOG) [humaLOG] See Protocol SQ ACHS 02/04/18 02/04/18 History Ipratropium-Albuterol Nebulize 3 ml INHALATION RT-Q4H PRN 02/04/18 02/04/18 History [Duoneb 0.5 mg-3 mg/3 ml Soln] Ipratropium-Albuterol Nebulize 3 ml INHALATION RT-QID@,,17,21 02/04/1802/04 History [Duoneb 0.5 mg-3 mg/3 ml Soln] Lisinopril [Zestril] 10 mg PO DAILY@59902/04/18 02/04/18 History Loperamide [Imodium] 2 mg PO Q8H PRN 02/04/18 02/04/18 History Metoprolol Tartrate [Lopressor] 12.5 mg PO DAILY@89902/04/18 02/04/18 History Ondansetron [Zofran] 4 mg PO Q8H PRN 02/04/18 02/04/18 History Potassium Chloride ER [K-Dur 20] 20 meq PO DAILY@89902/04/18 02/04/18 History amLODIPine [Norvasc] 5 mg PO DAILY@89902/04/18 02/04/18 History Allergies Allergy/AdvReac Type Severity Reaction Status Date / Time hydrocodone bitartrate AdvReac Nausea Verified 02/04/18 08:34 [From Vicodin] Physical Exam Vitals: Vital Signs Temp Pulse Pulse Resp BP BP Pulse Ox 02/04/18 14:20 98.3 F 90 15 129/60 96 02/04/18 13:32 78 02/04/18 13:22 66 02/04/18 12:00 76 130/63 02/04/18 07:15 112/53 02/04/18 06:26 98 F 73 16 134/66 95 02/03/18 23:00 96.2 F L 62 20 151/70 02/03/18 22:06 98.0 F 58 L 16 137/70 100 02/03/18 20:15 62 18 157/69 100 02/03/18 18:25 96.8 F L 70 16 94/55 100 Intake and Output 02/04/18 02/04/18 02/04/18 06:59 14:59 22:59 Other: Voiding Method Diaper Incontinent # Voids 3 3 # Bowel Movements 2 2 On physical examination, patient appears comfortable in no apparent distress. HEAD: Normocephalic, atraumatic. EYES: No scleral icterus. No conjunctival injection. MOUTH: No lesions, tongue midline. NECK: Trachea midline, no gross abnormalities. CHEST: Clear to auscultation with no wheezing or rhonchi appreciated. HEART: Regular rate and rhythm. ABDOMEN: Soft, obese. Bowel sounds are positive. No organomegaly. No guarding or rigidity. EXTREMITIES: No pedal edema. SKIN: No rashes, no jaundice. NEUROLOGIC: Alert and oriented. The patient is legally blind. Results CBC & Chem 7: 02/04/18 08:42 02/04/18 08:42 Labs: Abnormal Lab Results - Last 24 Hours (Table) 02/03/18 02/03/18 02/04/18 Range/Units 19:00 19:00 00:25 WBC 12.2 H (3.8-10.6) k/uL RBC (4.30-5.90) m/uL Hgb 12.4 L (13.0-17.5) gm/dL Hct (39.0-53.0) % MCHC 30.7 L (31.0-37.0) g/dL Neutrophils # 9.0 H 8.8 H (1.3-7.7) k/uL Lymphocytes # 0.9 L (1.0-4.8) k/uL Chloride (98-107) mmol/L Carbon Dioxide 21 L (22-30) mmol/L BUN 45 H (9-20) mg/dL Creatinine 1.87 H (0.66-1.25) mg/dL Glucose 191 H (74-99) mg/dL POC Glucose (mg/dL) (75-99) mg/dL Calcium (8.4-10.2) mg/dL Magnesium 1.4 L (1.6-2.3) mg/dL Alkaline Phosphatase 150 H (38-126) U/L Lipase 473 H (23-300) U/L 02/04/18 02/04/18 02/04/18 Range/Units 07:25 08:42 08:42 WBC (3.8-10.6) k/uL RBC 3.64 L (4.30-5.90) m/uL Hgb 10.7 L (13.0-17.5) gm/dL Hct 33.6 L (39.0-53.0) % MCHC (31.0-37.0) g/dL Neutrophils # (1.3-7.7) k/uL Lymphocytes # (1.0-4.8) k/uL Chloride 110 H (98-107) mmol/L Carbon Dioxide 21 L (22-30) mmol/L BUN 39 H (9-20) mg/dL Creatinine 1.73 H (0.66-1.25) mg/dL Glucose 130 H (74-99) mg/dL POC Glucose (mg/dL) 115 H (75-99) mg/dL Calcium 8.1 L (8.4-10.2) mg/dL Magnesium (1.6-2.3) mg/dL Alkaline Phosphatase (38-126) U/L Lipase (23-300) U/L 02/04/18 Range/Units 11:55 WBC (3.8-10.6) k/uL RBC (4.30-5.90) m/uL Hgb (13.0-17.5) gm/dL Hct (39.0-53.0) % MCHC (31.0-37.0) g/dL Neutrophils # (1.3-7.7) k/uL Lymphocytes # (1.0-4.8) k/uL Chloride (98-107) mmol/L Carbon Dioxide (22-30) mmol/L BUN (9-20) mg/dL Creatinine (0.66-1.25) mg/dL Glucose (74-99) mg/dL POC Glucose (mg/dL) 145 H (75-99) mg/dL Calcium (8.4-10.2) mg/dL Magnesium (1.6-2.3) mg/dL Alkaline Phosphatase (38-126) U/L Lipase (23-300) U/L CT scan - abdomen: report reviewed (CT abdomen showed findings suggestive of moderate acute pancreatitis.) Assessment and Plan (1) Nausea vomiting and diarrhea Narrative/Plan: Patient presenting with nausea vomiting and diarrhea on presentation with associated hypotension suggestive of acute gastroenteritis. Subsequently his symptoms have improved. Stool studies were negative on presentation. Current Visit: Yes Status: Acute Code(s): R11.2 - NAUSEA WITH VOMITING, UNSPECIFIED; R19.7 - DIARRHEA, UNSPECIFIED SNOMED Code(s): 8603696 (2) Normocytic anemia Narrative/Plan: Patient was found to have a fall in his hemoglobin during admission from 13.1 on presentation to 10.7 with an MCV of 92. No gross bleeding has been noted with only reports of some pink discharge mixed with mucus this morning and a normal brown bowel movement in the afternoon. The patient did have a stool for occult blood test which was positive. He has not had endoscopy in the past. Current Visit: Yes Status: Acute Code(s): D64.9 - ANEMIA, UNSPECIFIED SNOMED Code(s): 648174478 Plan: Supportive care Okay for diet Monitor hemoglobin and transfuse as needed Extensive conversation with the patient about endoscopic evaluation with EGD and colonoscopy given his fall in hemoglobin and age. At this time the patient is refusing the procedures and states that he is not interested. We'll continue to follow the patient while he is in the hospital and if further falls and hemoglobin occur will readdress the issue. Thank you for allowing us to participate in the care of this patient, we will continue to follow
[2018-02-04] MEDS: metFORMIN 500 MG TAB PO SCH (17:01)
[2018-02-04] MEDS: AMIODARONE 200 MG TAB PO SCH (17:01)
[2018-02-04 17:02] LABS: Glucose,Whole Blood 175 mg/dL (75-99)
[2018-02-04] MEDS: LACTATED RINGERS 1,000 ML IV SCH (20:39)
[2018-02-04 20:51] LABS: Glucose,Whole Blood 170 mg/dL (75-99)
--- NOTE | 2018-02-04 21:17 | HP ---
HISTORY AND PHYSICAL DATE OF ADMISSION: February 03, 2018. DATE OF SERVICE: February 04, 2018. PRESENT COMPLAINT: Nausea, vomiting, diarrhea. HISTORY OF PRESENTING COMPLAINT: This is a 72-year-old patient who does follow up with Dr. Thomas. The patient's chronic stable medical conditions include COPD, diabetes, legally blind, hypertension, hyperlipidemia, chronic right-sided weakness from prior stroke and both urine and stool incontinence. At baseline, needs help to be transferred. The patient was sent in from the [facility] yesterday, per the EMS report, the patient was having nausea, vomiting and diarrhea. The patient was reported to be hypotensive and was given fluid bolus. Initially in the ER, he was in systolic. The patient found to be in acute renal failure. About a month ago his creatinine was normal in the ER. BUN and creatinine was 39/1.73. Nurse reports the patient's stool had slight pink in that and nothing more. Patient denied any abdominal pain. The patient is seen earlier by Gastroenterology and patient did not want any endoscopy. The patient is put on IV fluids. The patient is not the best of historians. REVIEW OF SYSTEMS: CONSTITUTIONAL: Tired. HEENT: The patient can barely see, only perceive some light. RESPIRATORY: None. CARDIOVASCULAR none. GASTROINTESTINAL as above. GENITOURINARY: Urinary incontinence. MUSCULOSKELETAL: None. DERMATOLOGICAL, HEMATOLOGIC, LYMPHATIC: None. PSYCHIATRY: None. NEUROLOGICAL: Some chronic right-sided weakness. Poor eyesight. PAST MEDICAL HISTORY: COPD with stroke, residual weakness on the right side, diabetes type 2, hypertension, hyperlipidemia, legally blind, old T12 compression fracture, spondylolisthesis, doubly incontinent. The patient is pretty much bed bound and needs assistance to chair. PAST SURGICAL HISTORY: Cholecystectomy. SOCIAL HISTORY: Patient lives at [facility]. The patient smoked for 47 years, stopped in 2012. No alcohol. FAMILY HISTORY: Diabetes. HOME MEDICATIONS: 1. Glucophage 500 mg b.i.d. 2. Norvasc 5 mg p.o. daily. 3. Potassium 20 mEq p.o. daily. 4. Protonix 40 mg p.o. daily. 5. Zofran 4 mg q.8h p.r.n. 6. Lopressor 12.5 p.o. daily. 7. Imodium 2 mg q8h p.r.n. 8. Zestril 10 mg p.o. daily. 9. DuoNeb q.i.d. plus p.r.n. 10.Humalog per scale. 11.Lasix 40 mg p.o. daily. 12.Iron 325 p.o. daily. 13.Celexa 10 mg p.o. daily. 14.Vitamin D3 2000 units p.o. daily. 15.Pulmicort 1 mg b.i.d. 16.Pepto-Bismol 30 mL q.4 p.r.n. 17.Dulcolax 10 mg rectal q.4h p.r.n. 18.Aspirin 81 mg daily. 19.Eliquis 5 mg p.o. b.i.d. 20.Cordarone 200 mg p.o. daily. 21.Tylenol 650 mg q.6h p.r.n. EKG shows right bundle branch block, sinus rhythm. CT abdomen and pelvis shows moderate-sized umbilical hernia, new mild to moderate heterogeneous ill-defined fluid and fat stranding surrounding the pancreas, fairly diffuse. Chest x-ray, low lung volumes, lipase 473. UA negative. Stool occult blood positive. ASSESSMENT: 1. Possibly acute gastroenteritis with nausea, vomiting, diarrhea, present in the ECF, which is actually improved, probably precipitating acute renal failure. 2. Acute renal failure. Patient's creatinine went from 1.1 2 weeks ago to 1.87 on presentation. The patient also on Lasix. 3. 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 4. Chronic obstructive pulmonary disease in an ex-smoker. 5. Diabetes mellitus type 2 on oral hypoglycemic. 6. Hyperlipidemia. 7. Essential hypertension, chronic. 8. Hypotension from volume loss on presentation. 9. Chronic history of T12 compression fracture. 10.Urine and bowel chronic incontinence. 11.Chronic medical debility. 12.Cognitive impairment, mild. The patient is AO times person, place. 13.Legally blind. The patient only perceives light. 14.Hypertensive heart disease. PLAN: Patient's diet will be advanced cautiously. Patient does not want any endoscopy. Told lunchroom attendant. Per the nurse has not had no further diarrhea. We will give the patient IV fluids. Hold off patient's JOHNNIE inhibitor. The patient did have a 2-D echocardiogram last month that showed a preserved LV function and evidence of moderate concentric left ventricular hypertrophy. Repeat in the morning. Johnnie inhibitor has been held. Care was discussed with the Gastroenterology doctor, Dr. Diamond. Copy to Dr. Thomas. MMMADINAL / IJN: [id number] /
[2018-02-05] MEDS: PANTOPRAZOLE 40 MG TABLET PO SCH (05:18)
[2018-02-05] MEDS: LACTATED RINGERS 1,000 ML IV SCH ×3 (05:21→20:41)
[2018-02-05] MEDS ORDERED: LISINOPRIL 10 MG TAB PO SCH (06:00)
[2018-02-05 07:11] LABS: Glucose,Whole Blood 117 mg/dL (75-99)
[2018-02-05] MEDS: BUDESONIDE 1 MG/2 ML NEBU INHALATION SCH ×2 (07:53→20:29)
[2018-02-05] MEDS: IPRATROPIUM-ALBUTEROL 3 ML NEB INHALATION SCH ×4 (07:53→20:29)
[2018-02-05] MEDS: METOPROLOL TARTRATE 12.5 MG TAB PO SCH (08:13)
[2018-02-05] MEDS: metFORMIN 500 MG TAB PO SCH ×2 (08:13→17:18)
[2018-02-05] MEDS: CITALOPRAM HYDROBROMIDE 10 MG TAB PO SCH (08:14)
[2018-02-05] MEDS: amLODIPine 5 MG TAB PO SCH (08:14)
[2018-02-05] MEDS: POTASSIUM CHLORIDE ER 20 MEQ TAB.ER PO SCH (08:14)
[2018-02-05] MEDS: AMIODARONE 200 MG TAB PO SCH (08:14)
[2018-02-05 10:09] LABS: Calcium 8.4 mg/dL (8.4-10.2); Magnesium 1.9 mg/dL (1.6-2.3); Potassium 4.3 mmol/L (3.5-5.1)
[2018-02-05 11:23] LABS: Glucose,Whole Blood 109 mg/dL (75-99)
[2018-02-05 16:49] LABS: Glucose,Whole Blood 119 mg/dL (75-99)
[2018-02-05 20:36] LABS: Glucose,Whole Blood 126 mg/dL (75-99)
--- NOTE | 2018-02-05 23:51 | P.PN ---
Subjective Progress Note Date: 02/05/18 Principal diagnosis: Nausea, vomiting and diarrhea Patient has done well since being seen yesterday. No further nausea or vomiting. No further bowel movements since normal nonbloody, non-melanotic bowel movement yesterday. He is tolerating his diet. Objective - Vital Signs Vital signs: Vital Signs Temp 98.0 F 02/05/18 22:53 Pulse 76 02/05/18 22:53 Resp 17 02/05/18 22:53 BP 170/77 02/05/18 22:53 Pulse Ox 96 02/05/18 22:53 Intake & Output 02/05/18 02/05/18 02/06/18 06:59 18:59 06:59 Intake Total 1000 Balance 1000 Intake: Oral 1000 Other: Voiding Method Diaper Diaper Incontinent Incontinent # Voids 3 2 - Exam On physical examination, patient appears comfortable in no apparent distress. HEAD: Normocephalic, atraumatic. EYES: No injection or icterus noted, the patient is legally blind. MOUTH: No lesions, tongue midline. NECK: Trachea midline, no gross abnormalities. CHEST: Clear to auscultation with no wheezing or rhonchi appreciated. HEART: Regular rate and rhythm. ABDOMEN: Soft, obese. Bowel sounds are positive. No organomegaly. No guarding or rigidity. EXTREMITIES: No pedal edema. SKIN: No rashes, no jaundice. NEUROLOGIC: Alert and oriented x3. No focal deficits. - Labs CBC & Chem 7: 02/04/18 08:42 02/05/18 09:03 Labs: Abnormal Lab Results - Last 24 Hours (Table) 02/05/18 02/05/18 02/05/18 Range/Units 07:08 09:03 11:20 Chloride 110 H (98-107) mmol/L BUN 23 H (9-20) mg/dL Creatinine 1.29 H (0.66-1.25) mg/dL Glucose 125 H (74-99) mg/dL POC Glucose (mg/dL) 117 H 109 H (75-99) mg/dL 02/05/18 02/05/18 Range/Units 16:44 20:33 Chloride (98-107) mmol/L BUN (9-20) mg/dL Creatinine (0.66-1.25) mg/dL Glucose (74-99) mg/dL POC Glucose (mg/dL) 119 H 126 H (75-99) mg/dL Microbiology - Last 24 Hours (Table) 02/03/18 20:20 Blood Culture - Preliminary Blood No Growth after 48 hours Assessment and Plan (1) Nausea vomiting and diarrhea Narrative/Plan: Patient presenting with nausea vomiting and diarrhea on presentation with associated hypotension suggestive of acute gastroenteritis. Subsequently his symptoms have improved. Stool studies were negative on presentation. Current Visit: Yes Status: Acute Code(s): R11.2 - NAUSEA WITH VOMITING, UNSPECIFIED; R19.7 - DIARRHEA, UNSPECIFIED SNOMED Code(s): 6000407 (2) Normocytic anemia Narrative/Plan: Patient was found to have a fall in his hemoglobin during admission from 13.1 on presentation to 10.7 with an MCV of 92. No gross bleeding has been noted with only reports of some pink discharge mixed with mucus yesterday morning and a normal brown bowel movement yesterday afternoon. The patient did have a stool for occult blood test which was positive. He has not had endoscopy in the past. Current Visit: Yes Status: Acute Code(s): D64.9 - ANEMIA, UNSPECIFIED SNOMED Code(s): 566372291 Plan: Supportive care Okay for diet Monitor hemoglobin and transfuse as needed The patient was again asked about endoscopic evaluation with EGD and colonoscopy given his fall in hemoglobin and age. At this time the patient is refusing the procedures and states that he is not interested. We'll continue to follow the patient while he is in the hospital and if further falls and hemoglobin occur will readdress the issue. Thank you for allowing us to participate in the care of this patient, we will continue to follow
[2018-02-06] MEDS: LACTATED RINGERS 1,000 ML IV SCH ×2 (05:12→11:30)
[2018-02-06] MEDS: PANTOPRAZOLE 40 MG TABLET PO SCH (05:13)
[2018-02-06 07:40] LABS: Glucose,Whole Blood 99 mg/dL (75-99)
[2018-02-06] MEDS: amLODIPine 5 MG TAB PO SCH (07:42)
[2018-02-06] MEDS: METOPROLOL TARTRATE 12.5 MG TAB PO SCH (07:43)
[2018-02-06] MEDS: metFORMIN 500 MG TAB PO SCH ×2 (07:43→17:34)
[2018-02-06] MEDS: AMIODARONE 200 MG TAB PO SCH (07:43)
[2018-02-06] MEDS: POTASSIUM CHLORIDE ER 20 MEQ TAB.ER PO SCH (07:43)
[2018-02-06] MEDS: CITALOPRAM HYDROBROMIDE 10 MG TAB PO SCH (07:43)
[2018-02-06] MEDS: IPRATROPIUM-ALBUTEROL 3 ML NEB INHALATION SCH ×3 (09:23→16:07)
[2018-02-06] MEDS: BUDESONIDE 1 MG/2 ML NEBU INHALATION SCH (09:23)
[2018-02-06 09:54] LABS: Calcium 8.5 mg/dL (8.4-10.2); Potassium 4.4 mmol/L (3.5-5.1)
--- NOTE | 2018-02-06 11:31 | PN ---
PROGRESS NOTE DATE OF SERVICE: 02/05/2018 PRESENTING COMPLAINT: Nausea, vomiting diarrhea. INTERVAL HISTORY: Patient presented with acute gastroenteritis and has since resolved, found to have acute renal failure. Tolerating a diet. Has not had further bowel movement. 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 Patient otherwise comfortable. The patient can answer simple questions. REVIEW OF SYSTEMS: Done for constitutional, cardiovascular, GI, pulmonary and relevant findings as above. CURRENT MEDICATIONS: Reviewed that include Protonix and IV fluids. EXAMINATION: Temperature 98.3, pulse 84, respirations 16, blood pressure 149/69, pulse ox 96% on room air. GENERAL APPEARANCE: Lying in bed. EYES: Poor vision in both eyes. Cornea damage. HEENT: External appearance of nose and ears normal. Oral cavity normal. NECK: JVD not raised. Mass not palpable. Respiratory effort, lungs are clear. CARDIOVASCULAR: First and second sounds normal, no edema. ABDOMEN: Soft. Liver and spleen not palpable. PSYCHIATRY: The patient able to answer simple questions. INVESTIGATIONS: Potassium 4.3, BUN 23, creatinine 1.29. ASSESSMENT: 1. Acute gastroenteritis, present on admission resolved. 2. Acute renal failure likely prerenal both from gastroenteritis and patient being on Lasix, slowly improving. 3. 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 4. Chronic obstructive pulmonary disease in an ex-smoker. 5. Diabetes mellitus Type 2 on oral hypoglycemic. 6. Hyperlipidemia. 7. Essential hypertension, chronic. 8. Hypotension from volume loss on presentation. 9. Chronic history of T12 compression fracture. 10.Urine bowel chronic incontinence. 11.Chronic medical debility. 12.Cognitive impairment, mild. The patient is alert and oriented times person and place. 13.Legally blind. The patient only perceives light. 14.Hypertensive heart disease. PLAN: Continue with IV fluids. Check electrolytes in the morning. Care was discussed with the nurse. MMODL / IJN: [id number] /
--- NOTE | 2018-02-06 11:32 | P.PN ---
Subjective Progress Note Date: 02/06/18 Principal diagnosis: nausea vomiting diarrhea No complaints. Denies nausea vomiting. Possible discharge today. Tolerating diet. Afebrile. Objective - Vital Signs Vital signs: Vital Signs Temp 98.4 F 02/06/18 06:57 Pulse 84 02/06/18 09:43 Resp 16 02/06/18 06:57 BP 155/82 02/06/18 06:57 Pulse Ox 96 02/06/18 06:57 Intake & Output 02/05/18 02/06/18 02/06/18 18:59 06:59 18:59 Intake Total 1000 Balance 1000 Intake: Oral 1000 Other: Voiding Method Diaper Incontinent # Voids 2 2 - Exam General appearance: The patient is alert, oriented, in no acute distress. HET: Head is normocephalic and atraumatic. Pupils are equal and reactive. Oropharynx is clear without lesions. Neck: Supple without lymphadenopathy. Trachea midline. Heart: S1 S2. Regular rate and rhythm. Lungs: No crackles or wheezes are heard. Abdomen: Soft, nontender, nondistended with bowel sounds. No peritoneal signs. No palpable organomegaly or masses. Extremities: Normal skin color and turgor. No cyanosis, rash, ulceration, clubbing, or edema. Radial and pedal pulses are 2/4 bilaterally. Neurological: No focal deficits. Strength and sensation are grossly intact. - Labs CBC & Chem 7: 02/04/18 08:42 02/06/18 09:09 Labs: Abnormal Lab Results - Last 24 Hours (Table) 02/05/18 02/05/18 02/06/18 Range/Units 16:44 20:33 09:09 Glucose 101 H (74-99) mg/dL POC Glucose (mg/dL) 119 H 126 H (75-99) mg/dL Microbiology - Last 24 Hours (Table) 02/03/18 20:20 Blood Culture - Preliminary Blood No Growth after 48 hours Assessment and Plan (1) Nausea vomiting and diarrhea Narrative/Plan: nausea vomiting diarrhea on presentation with clinical improvement. Possible acute gastroenteritis. Stool studies negative. Current Visit: Yes Status: Acute Code(s): R11.2 - NAUSEA WITH VOMITING, UNSPECIFIED; R19.7 - DIARRHEA, UNSPECIFIED SNOMED Code(s): 4241362 (2) Normocytic anemia Narrative/Plan: component of acute blood loss no history of prior endoscopy. EGD colonoscopy advised patient declined. Current Visit: Yes Status: Acute Code(s): D64.9 - ANEMIA, UNSPECIFIED SNOMED Code(s): 614798097 Plan: recommendations: 1. Discharge per medicine. EGD colonoscopy advised for further evaluation of anemia as an outpatient presently patient declines. CBC monitoring in the outpatient setting.Follow up in GI office in 2-3 weeks after discharge for reevaluation. Assessment and plan a care discussed with Dr. Cam
[2018-02-06 11:53] LABS: Glucose,Whole Blood 109 mg/dL (75-99)
[2018-02-06 15:28] VITALS: BP 163/77; RESP 18; TEMP 98.9
--- NOTE | 2018-02-06 15:52 | DS ---
DISCHARGE SUMMARY DATE OF ADMISSION: 02/05/18. DATE OF DISCHARGE: 02/06/18. FINAL DIAGNOSES: 1. Acute renal failure likely prerenal from gastroenteritis and patient being on Lasix, present on admission. 2. Acute gastroenteritis, self-limiting, present on admission, resolved. 3. 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 4. Chronic obstructive pulmonary disease in an ex-smoker. 5. Diabetes mellitus type 2 on oral hypoglycemic. 6. Hyperlipidemia. 7. Essential hypertension, chronic. 8. Hypotension from volume loss gastroenteritis. 9. Chronic history of T12 compression fracture. 10.Urine and bowel chronic incontinence. 11.Chronic medical debility. 12.Moderate cognitive impairment. The patient is alert, oriented times person and place. 13.Legally blind. The patient can only perceive light. 14.Hypertensive heart disease. 15.Questionable GI bleed. HOSPITAL COURSE: This patient presented with nausea, vomiting and diarrhea, also was hypotensive. The patient was found to be in renal failure. Creatinine was 1.87, up from 1.1 from 2 weeks ago. The patient is given IV fluids. Diuretics were held and creatinine down to 1.1. The patient's 2D echo shows preserved LV function. Hence, dose of Lasix was scaled back. There was a question about if any blood in the stool. No blood was noticed here. The patient is seen by Dr. Cam from GI, who did talk to the patient. The patient declined endoscopy. Currently patient is tolerating his diet. EXAMINATION: Temp 98.4, pulse 83, respirations 16, blood pressure 155/82, pulse ox 96 percent on room air. On examination, vision is poor. Patient can only perceive light. ABDOMEN: Soft, nontender. The patient is able answer simple questions. DISCHARGE MEDICATIONS: 1. Metformin 500 mg b.i.d. 2. Aspirin 81 mg a day. 3. Tylenol Arthritis 650 mg p.o. q.6h p.r.n. 4. Protonix 40 mg daily. 5. Pulmicort 1 mg b.i.d. 6. Vitamin D3 2000 units p.o. daily. 7. Celexa 10 mg p.o. daily. 8. Iron 325 p.o. daily. 9. Cordarone 200 mg p.o. daily. 10.Eliquis 5 mg p.o. b.i.d. 11.Dulcolax 10 mg rectal every 48 hours. 12.Pepto-Bismol 30 mL q.4h p.r.n. 13.Humalog subcu a.c. and at bedtime. 14.DuoNeb q.4h p.r.n. and DuoNeb q.i.d. 15.Zestril 10 mg p.o. daily. 16.Imodium 2 mg q.8 p.r.n. 17.Lopressor 12.5 p.o. b.i.d. 18.Zofran 4 mg q.8h p.r.n. 19.Norvasc 5 mg p.o. daily. 20.Lasix 20 mg p.o. daily, which is a new dose. DISPOSITION: [facility]. FOLLOWUP: Follow up with Dr. Azul at the [facility], follow with Dr. Thomas after discharge from [facility], follow Dr. Cam on 03/01/18, CBC in 1 week. MMODL / IJN: [id number] /
[2018-02-06 16:23] VITALS: PULSE 80
[2018-02-06 17:31] LABS: Glucose,Whole Blood 148 mg/dL (75-99)
== END 2018-02-06 19:10 | DRG 683 ==
LOC: EC 18:20 → 4MS4W 21:15 → OBSVTOIN 02-05 19:12
PROVIDERS: ADMIT Hospitalist; ATTEND Hospitalist
DX: N17.9 Acute kidney failure, unspecified (principal); I69.951 Hemiplegia and hemiparesis following unspecified cerebrovascular disease affecting right dominant side; D64.9 Anemia, unspecified; E11.9 Type 2 diabetes mellitus without complications; E78.5 Hyperlipidemia, unspecified; H40.9 Unspecified glaucoma; H54.8 Legal blindness, as defined in USA; I11.9 Hypertensive heart disease without heart failure; I45.10 Unspecified right bundle-branch block; J44.9 Chronic obstructive pulmonary disease, unspecified; K42.9 Umbilical hernia without obstruction or gangrene; K52.9 Noninfective gastroenteritis and colitis, unspecified; F32.9 Major depressive disorder, single episode, unspecified; M43.10 Spondylolisthesis, site unspecified; R15.9 Full incontinence of feces; R32 Unspecified urinary incontinence; H26.9 Unspecified cataract; I95.9 Hypotension, unspecified; E66.9 Obesity, unspecified; Z68.31 Body mass index [BMI] 31.0-31.9, adult; Z74.01 Bed confinement status; Z79.01 Long term (current) use of anticoagulants; Z79.82 Long term (current) use of aspirin; Z79.84 Long term (current) use of oral hypoglycemic drugs; Z79.899 Other long term (current) drug therapy; Z88.5 Allergy status to narcotic agent; Z91.81 History of falling; Z87.891 Personal history of nicotine dependence; Z83.3 Family history of diabetes mellitus; Z82.0 Family history of epilepsy and other diseases of the nervous system
CPT/HCPCS: 36415; 51701; 71045; 74176; 80048; 80053; 81003; 82272; 83605; 83690; 83735; 83880; 84484; 85025; 85027; 87040; 87324; 93005; 94640; 96360; 96361; 99285

== ENCOUNTER 2018-04-17 09:40 | Observation (INO) | payer MEDICARE, OTHER ==
[2018-04-17] MEDS ORDERED: SODIUM CHLORIDE 0.9% 500 ML 500 ML IV STA (10:13)
--- NOTE | 2018-04-17 10:16 | ED ---
Syncope HPI - General Chief Complaint: Syncope Stated Complaint: Syncope Time Seen by Provider: 04/17/18 09:48 Source: patient, EMS, RN notes reviewed Mode of arrival: EMS Limitations: physical limitation - History of Present Illness Initial Comments: This a 72-year-old male presents emergency department via EMS from [facility] for syncopal episode. Patient reportedly passed out at the facility. Patient states he has no complaints at this time. He does not remember passing out. Patient and eyes headache, neck pain, back pain, chest pain, shortness breath, nausea vomiting. Patient states he does not feel dizzy he does admit that he is legally blind and cannot see. Patient denies any dysuria, , constipation, diarrhea. Patient states he was recently hospitalized for dehydration. - Related Data Home Medications Medication Instructions Recorded Confirmed metFORMIN HCL [Glucophage] 500 mg PO BID@0900,1700 05/05/16 04/17/18 Aspirin 81 mg PO DAILY@0900 08/11/17 04/17/18 Acetaminophen [Tylenol Arthritis] 650 mg PO Q6H PRN 08/20/17 04/17/18 Pantoprazole [Protonix] 40 mg PO DAILY@0600 08/20/17 04/17/18 Budesonide [Pulmicort] 1 mg INHALATION RT-BID@0900,209901/08/18 04/17/18 Cholecalciferol (Vitamin D3) 2,000 unit PO DAILY@0901/08/18 04/17/18 [Vitamin D3] Citalopram Hydrobromide [CeleXA] 10 mg PO DAILY@0901/08/18 04/17/18 Ferrous Sulfate [Iron (65 MG 325 mg PO DAILY@0901/08/18 04/17/18 Elemental)] Amiodarone [Cordarone] 200 mg PO DAILY@0900 02/04/18 04/17/18 Apixaban [Eliquis] 5 mg PO BID@0900,2100 02/04/18 04/17/18 Bisacodyl [Dulcolax] 10 mg RECTAL Q48H PRN 02/04/18 04/17/18 INSULIN LISPRO (HumaLOG) [humaLOG] See Protocol SQ ACHS 02/04/18 04/17/18 Ipratropium-Albuterol Nebulize 3 ml INHALATION RT-Q4H PRN 02/04/18 04/17/18 [Duoneb 0.5 mg-3 mg/3 ml Soln] Ipratropium-Albuterol Nebulize 3 ml INHALATION RT-QID@00,06,12,17 02/04/1804/17 [Duoneb 0.5 mg-3 mg/3 ml Soln] Lisinopril [Zestril] 10 mg PO DAILY@0600 02/04/18 04/17/18 Metoprolol Tartrate [Lopressor] 12.5 mg PO DAILY@89902/04/18 04/17/18 Ondansetron [Zofran] 4 mg PO Q8H PRN 02/04/18 04/17/18 amLODIPine [Norvasc] 5 mg PO DAILY@89902/04/18 04/17/18 Dimethicone/Zinc Oxide [Inzo Zinc 1 applic TOPICAL BID 04/17/18 04/17/18 Oxide Barrier Cream] Dimethicone/Zinc Oxide [Inzo Zinc 1 applic TOPICAL DAILY PRN 04/17/18 04/17/18 Oxide Barrier Cream] Lactulose 10 gm PO BID 04/17/18 04/17/18 Magnesium Hydroxide [Milk of 2,400 mg PO DAILY PRN 04/17/18 04/17/18 Magnesia] Previous Rx's Medication Instructions Recorded Furosemide [Lasix] 20 mg PO DAILY@0600 #0 02/06/18 Allergies Allergy/AdvReac Type Severity Reaction Status Date / Time hydrocodone bitartrate AdvReac Nausea Verified 04/17/18 10:09 [From Vicodin] Review of Systems ROS Statement: Those systems with pertinent positive or pertinent negative responses have been documented in the HPI. ROS Other: All systems not noted in ROS Statement are negative. 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 DDD, hx of T12 compression fx , spondylothesis, urinary/bowel incontinence, bed bound w/ assist to chair per [facility]. A+O to person/place = baseline, cholecystitis, anemia, hx of respiratory failure w/ hypoxia. History of Any Multi-Drug Resistant Organisms: None Reported Past Surgical History: No Surgical Hx Reported, Cholecystectomy Additional Past Surgical History / Comment(s): Laparoscopic cholecystectomy Past Anesthesia/Blood Transfusion Reactions: No Reported Reaction Past Psychological History: Depression Smoking Status: Former smoker Past Alcohol Use History: None Reported Past Drug Use History: None Reported - Past Family History Father Family Medical History: Diabetes Mellitus Mother Family Medical History: Dementia, Diabetes Mellitus Brother(s) Family Medical History: Unable to Obtain General Exam Limitations: physical limitation General appearance: alert, in no apparent distress Head exam: Present: atraumatic, normocephalic, normal inspection ENT exam: Present: mucous membranes dry Neck exam: Present: normal inspection, full ROM. Absent: tenderness, meningismus, lymphadenopathy Respiratory exam: Present: normal lung sounds bilaterally. Absent: respiratory distress, wheezes, rales, rhonchi, stridor Cardiovascular Exam: Present: regular rate, normal rhythm, normal heart sounds. Absent: systolic murmur, diastolic murmur, rubs, gallop, clicks GI/Abdominal exam: Present: soft, normal bowel sounds. Absent: distended, tenderness, guarding, rebound, rigid Neurological exam: Present: alert, CN II-XII intact (As tested unable to perform finger to nose test secondary to being blind) Skin exam: Present: warm, dry, intact, normal color. Absent: rash Course Vital Signs 04/17/18 04/17/18 09:46 11:56 Temperature 98.3 F Pulse Rate 68 69 Respiratory 20 18 Rate Blood Pressure 150/72 137/61 O2 Sat by Pulse 100 100 Oximetry EKG Findings - EKG Comments: EKG Findings:: EKG performed at 10:26 normal sinus rhythm with a right bundle, rate of 70. 24 QRS 150 QT/QTC 454/490 no acute changes from prior 02/13/2018 Medical Decision Making - Medical Decision Making 72-year-old male presented for syncopal episode. Patient is found to be dehydrated, syncope. Patient had lab work, EKG. Patient will be admitted for hydration and further evaluation. - Lab Data Result diagrams: 04/17/18 10:45 04/17/18 10:45 Lab Results 04/17/18 04/17/18 04/17/18 Range/Units 10:45 10:45 10:45 WBC 9.0 (3.8-10.6) k/uL RBC 3.55 L (4.30-5.90) m/uL Hgb 10.8 L (13.0-17.5) gm/dL Hct 33.3 L (39.0-53.0) % MCV 94.0 (80.0-100.0) fL MCH 30.5 (25.0-35.0) pg MCHC 32.4 (31.0-37.0) g/dL RDW 13.7 (11.5-15.5) % Plt Count 314 (150-450) k/uL Neutrophils % 76 % Lymphocytes % 15 % Monocytes % 6 % Eosinophils % 1 % Basophils % 0 % Neutrophils # 6.9 (1.3-7.7) k/uL Lymphocytes # 1.3 (1.0-4.8) k/uL Monocytes # 0.6 (0-1.0) k/uL Eosinophils # 0.0 (0-0.7) k/uL Basophils # 0.0 (0-0.2) k/uL PT (9.0-12.0) sec INR (<1.2) APTT (22.0-30.0) sec Sodium 136 L (137-145) mmol/L Potassium 4.8 (3.5-5.1) mmol/L Chloride 103 (98-107) mmol/L Carbon Dioxide 24 (22-30) mmol/L Anion Gap 9 mmol/L BUN 32 H (9-20) mg/dL Creatinine 1.80 H (0.66-1.25) mg/dL Est GFR (CKD-EPI)AfAm 42 (>60 ml/min/1.73 sqM) Est GFR (CKD-EPI)NonAf 36 (>60 ml/min/1.73 sqM) Glucose 167 H (74-99) mg/dL Calcium 9.1 (8.4-10.2) mg/dL Magnesium 1.8 (1.6-2.3) mg/dL Total Bilirubin 0.7 (0.2-1.3) mg/dL AST 17 (17-59) U/L ALT 22 (21-72) U/L Alkaline Phosphatase 72 (38-126) U/L Total Creatine Kinase 59 (55-170) U/L CK-MB (CK-2) 1.2 (0.0-2.4) ng/mL CK-MB (CK-2) Rel Index 2.0 Troponin I <0.012 (0.000-0.034) ng/mL Total Protein 6.5 (6.3-8.2) g/dL Albumin 3.7 (3.5-5.0) g/dL 04/17/18 Range/Units 10:45 WBC (3.8-10.6) k/uL RBC (4.30-5.90) m/uL Hgb (13.0-17.5) gm/dL Hct (39.0-53.0) % MCV (80.0-100.0) fL MCH (25.0-35.0) pg MCHC (31.0-37.0) g/dL RDW (11.5-15.5) % Plt Count (150-450) k/uL Neutrophils % % Lymphocytes % % Monocytes % % Eosinophils % % Basophils % % Neutrophils # (1.3-7.7) k/uL Lymphocytes # (1.0-4.8) k/uL Monocytes # (0-1.0) k/uL Eosinophils # (0-0.7) k/uL Basophils # (0-0.2) k/uL PT 10.7 (9.0-12.0) sec INR 1.1 (<1.2) APTT 24.2 (22.0-30.0) sec Sodium (137-145) mmol/L Potassium (3.5-5.1) mmol/L Chloride (98-107) mmol/L Carbon Dioxide (22-30) mmol/L Anion Gap mmol/L BUN (9-20) mg/dL Creatinine (0.66-1.25) mg/dL Est GFR (CKD-EPI)AfAm (>60 ml/min/1.73 sqM) Est GFR (CKD-EPI)NonAf (>60 ml/min/1.73 sqM) Glucose (74-99) mg/dL Calcium (8.4-10.2) mg/dL Magnesium (1.6-2.3) mg/dL Total Bilirubin (0.2-1.3) mg/dL AST (17-59) U/L ALT (21-72) U/L Alkaline Phosphatase (38-126) U/L Total Creatine Kinase (55-170) U/L CK-MB (CK-2) (0.0-2.4) ng/mL CK-MB (CK-2) Rel Index Troponin I (0.000-0.034) ng/mL Total Protein (6.3-8.2) g/dL Albumin (3.5-5.0) g/dL Disposition Clinical Impression: Syncope, Dehydration, Right bundle branch block (RBBB), Acute kidney injury Disposition: ADMITTED IP TO THIS HOSP Condition: Fair Referrals: Leonides Azul MD [Primary Care Provider] - 1-2 days
[2018-04-17 11:07] LABS: Basophils % (A) 0 %; Eosinophils % (A) 1 %; HCT 33.3 % (39.0-53.0); HGB 10.8 gm/dL (13.0-17.5); Lymphocytes # (A) 1.3 k/uL (1.0-4.8); Lymphocytes % (A) 15 %; MCH 30.5 pg (25.0-35.0); MCHC 32.4 g/dL (31.0-37.0); Mean Platelet Volume 6.9; Monocytes # (A) 0.6 k/uL (0-1.0); Monocytes % (A) 6 %; Neutrophils # (A) 6.9 k/uL (1.3-7.7); Neutrophils % (A) 76 %; Platelet Count 314 k/uL (150-450); RBC 3.55 m/uL (4.30-5.90); RDW 13.7 % (11.5-15.5)
[2018-04-17 11:15] LABS: INR 1.1 (<1.2); Partial Thromboplastin Time 24.2 sec (22.0-30.0); Prothrombin Time 10.7 sec (9.0-12.0)
[2018-04-17 11:19] LABS: Albumin 3.7 g/dL (3.5-5.0); Calcium 9.1 mg/dL (8.4-10.2); Magnesium 1.8 mg/dL (1.6-2.3); Potassium 4.8 mmol/L (3.5-5.1); Total Bilirubin 0.7 mg/dL (0.2-1.3); Total Protein 6.5 g/dL (6.3-8.2)
--- NOTE | 2018-04-17 11:29 | XR ---
EXAMINATION TYPE: XR chest 2V DATE OF EXAM: 04/17/2018 COMPARISON: 02/03/2018 HISTORY: 72-year-old male with syncope and shortness of breath TECHNIQUE: AP and lateral views FINDINGS: Heart upper limits of normal in size. Mild interstitial prominence is unchanged. Eventration anterior right hemidiaphragm limits visualization of the right base on the frontal view. Lateral view shows n o convincing findings of consolidation or pleural effusion. Cholecystectomy clips. IMPRESSION: Borderline heart size. Chronic changes without acute process seen.
[2018-04-17 11:30] LABS: Creatine Kinase 59 U/L (55-170)
[2018-04-17 11:43] LABS: Creatine Kinase MB 1.2 ng/mL (0.0-2.4); Troponin I <0.012 ng/mL (0.000-0.034)
[2018-04-17] MEDS ORDERED: ACETAMINOPHEN TAB 325 MG TAB PO PRN (12:54)
[2018-04-17] MEDS ORDERED: NALOXONE 0.4 MG/ML 1 ML VIAL IV PRN (12:54)
[2018-04-17 13:27] LABS: Mucus,Urine Rare /hpf; RBC,Urine <1 /hpf (0-5); WBC,Urine 1 /hpf (0-5)
[2018-04-17 13:28] LABS: Appearance,Urine Clear (Clear); Bilirubin,Urine Negative (Negative); Color,Urine Yellow; Glucose,Urine (UA) Negative (Negative); Ketones,Urine Negative (Negative); Specific Gravity,Urine 1.009 (1.001-1.035)
[2018-04-17 13:29] LABS: Blood,Urine Negative (Negative); Leukocyte Esterase,Urine Negative (Negative); Nitrite,Urine Negative (Negative); Urobilinogen,Urine 0.2 mg/dL (<2.0)
[2018-04-17] MEDS: SODIUM CHLORIDE 0.9% 1,000 ML IV SCH (14:29)
[2018-04-17] MEDS ORDERED: ONDANSETRON 4 MG TAB PO PRN (16:39)
[2018-04-17] MEDS ORDERED: BISACODYL 10 MG SUPP RECTAL PRN (16:39)
[2018-04-17] MEDS ORDERED: MAGNESIUM HYDROXIDE 2,400 MG/10 ML CUP PO PRN (16:39)
[2018-04-17] MEDS ORDERED: IPRATROPIUM-ALBUTEROL 3 ML NEB INHALATION PRN (16:39)
[2018-04-17] MEDS ORDERED: NON-FORMULARY DRUG (Acetaminophen [Tylenol Arthritis] 650 MG) PO PRN (16:39)
[2018-04-17] MEDS ORDERED: ZINC OXIDE 20% OINT 28.4 GM TUBE TOPICAL PRN (16:39)
[2018-04-17] MEDS: BUDESONIDE 1 MG/2 ML NEBU INHALATION SCH (20:04)
[2018-04-17] MEDS: IPRATROPIUM-ALBUTEROL 3 ML NEB INHALATION SCH (20:04)
[2018-04-17 20:08] LABS: Glucose,Whole Blood 137 mg/dL (75-99)
--- NOTE | 2018-04-17 20:41 | HP ---
HISTORY AND PHYSICAL CHIEF COMPLAINT: Syncope. HISTORY OF PRESENT ILLNESS: This 72-year-old gentleman with past history of COPD, diabetes mellitus, hypertension, hyperlipidemia, renal disease, being followed by Dr. Azul in the outpatient setting, is living in the [facility] on the [place]. The patient apparently had a syncopal episode and the patient taken to [facility]. Patient does not remember passing out. There is no history of fever, rigors. No history of headache, loss of consultation. Mildly confused. PAST MEDICAL HISTORY: COPD, CVA, TIA, diabetes mellitus, hypertension, hyperlipidemia, renal disease, syncope. HOME MEDICATIONS: 1. Metformin 500 mg p.o. b.i.d. 2. Norvasc 5 mg p.o. daily. 3. Protonix 40 mg. 4. Zofran 4 mg q.8h p.r.n. 5. Lopressor 12.5 mg daily. 6. Milk of magnesia 2.4 g daily. 7. Zestril 10 mg p.o. daily. 8. Lactulose 10 g b.i.d. 9. DuoNeb q.i.d. and p.r.n. 10.Humalog protocol. 11.Lasix 20 mg daily. 12.Iron sulfate 320 mg p.o. daily. 13.Zinc oxide. 14.Celexa 10 mg p.o. 15.Vitamin D3 2000 daily. 16.Pulmicort 1 mg b.i.d. 18.Aspirin 81 mg. 19.Eliquis 5 mg b.i.d. 20.Cordarone 200 mg p.o. daily. 21.Tylenol 650 q.6h p.r.n. ALLERGIES: HYDROCODONE. FAMILY HISTORY: History of diabetes mellitus type 2. SOCIAL HISTORY: Previous history of smoking. No history of current smoking or alcohol intake. REVIEW OF SYSTEMS: ENT: Diminished hearing or vision. CARDIOVASCULAR: No angina. RESPIRATORY: Occasional cough. GI: No nausea. : No dysuria. NERVOUS SYSTEM: As mentioned. ALLERGY/IMMUNOLOGY: No asthma or hayfever. MUSCULOSKELETAL: As mentioned earlier. HEMATOLOGY: No history of anemia. ENDOCRINE: Diabetes. CONSTITUTIONAL: As mentioned earlier. DERMATOLOGY: Negative. RHEUMATOLOGY: Negative. PSYCHIATRY: As mentioned earlier. PHYSICAL EXAMINATION: Alert and oriented x2. Pulse 63, blood pressure 158/72, respirations 18, temperature normal, pulse ox 96% on room air. HEENT: Conjunctivae normal. Oral mucosa dry. Neck is no jugular venous distention. No carotid bruit. No lymph node enlargement. CARDIOVASCULAR: S1, S2. RESPIRATORY: Breath sounds diminished in the bases. A few scattered rhonchi. No crackles. ABDOMEN: Soft, nontender. No mass palpable. LEGS: No edema, swelling. NERVOUS SYSTEM: Higher functions as mentioned earlier. Moves all four limbs. Mild diffuse weakness. LYMPHATICS: No lymphadenopathy in the neck, axillae, groin. SKIN: No ulcer, rash or bleeding. LABS: Creatinine is 1.8, hemoglobin is 10.9, sodium 130. ASSESSMENT: 1. Syncope possibly secondary to dehydration. 2. Renal failure, possible acute renal failure. 3. Anemia, normocytic of chronic disease. 4. Chronic obstructive pulmonary disease. 5. Cerebrovascular accident, transient ischemic attack. 6. Diabetes mellitus type 2. 7. Hypertension. 8. Hyperlipidemia. 9. History of renal disease. 10.History of legal blindness secondary to glaucoma. 11.Cholecystectomy. 12.Laparoscopic cholecystectomy. 13.History of depression. 14.FULL CODE. RECOMMENDATIONS AND DISCUSSION This 72-year-old gentleman who presented with multiple medical issues, we will monitor the patient closely. Continue the current medical management and symptomatic treatment. I would hold the Lasix for now and continue with IV fluids at 75 mL/hour. Repeat labs will be ordered for tomorrow. Otherwise, I would also obtain cardiology and Neurology consultation also. Guarded prognosis because of multiple complex medical issues. Further recommendations to follow. Copy to Dr. Azul who is the primary physician. MMODL / IJN: [id number] / LUIS ALBERTO
[2018-04-17] MEDS: metFORMIN 500 MG TAB PO SCH (21:45)
[2018-04-17] MEDS: LACTULOSE 20 GM/30 ML CUP PO SCH (21:56)
[2018-04-17] MEDS: APIXABAN 5 MG TAB PO SCH (21:56)
[2018-04-17] MEDS: ZINC OXIDE 20% OINT 28.4 GM TUBE TOPICAL SCH (22:00)
[2018-04-18] MEDS ORDERED: FUROSEMIDE 20 MG TAB PO SCH (06:00)
[2018-04-18] MEDS: LISINOPRIL 10 MG TAB PO SCH (06:01)
[2018-04-18] MEDS: PANTOPRAZOLE 40 MG TABLET PO SCH (06:01)
[2018-04-18 07:32] LABS: Basophils % (A) 1 %; Eosinophils # (A) 0.1 k/uL (0-0.7); Eosinophils % (A) 1 %; HCT 31.7 % (39.0-53.0); HGB 10.2 gm/dL (13.0-17.5); Lymphocytes # (A) 1.9 k/uL (1.0-4.8); Lymphocytes % (A) 31 %; MCH 30.5 pg (25.0-35.0); MCV 95.3 fL (80.0-100.0); Mean Platelet Volume 7.1; Monocytes # (A) 0.6 k/uL (0-1.0); Monocytes % (A) 9 %; Neutrophils # (A) 3.5 k/uL (1.3-7.7); Neutrophils % (A) 56 %; Platelet Count 295 k/uL (150-450); RBC 3.33 m/uL (4.30-5.90); RDW 13.6 % (11.5-15.5); WBC 6.2 k/uL (3.8-10.6)
[2018-04-18 07:47] LABS: Calcium 8.6 mg/dL (8.4-10.2); Potassium 4.5 mmol/L (3.5-5.1)
[2018-04-18] MEDS: IPRATROPIUM-ALBUTEROL 3 ML NEB INHALATION SCH ×4 (07:58→15:44)
[2018-04-18] MEDS: BUDESONIDE 1 MG/2 ML NEBU INHALATION SCH ×2 (07:58→20:39)
[2018-04-18] MEDS ORDERED: ASPIRIN 81 MG PO SCH (09:00)
[2018-04-18] MEDS: CITALOPRAM HYDROBROMIDE 10 MG TAB PO SCH (10:18)
[2018-04-18] MEDS: FERROUS SULFATE 325 MG TAB PO SCH (10:18)
[2018-04-18] MEDS: CHOLECALCIFEROL 1,000 UNIT TAB PO SCH (10:18)
[2018-04-18] MEDS: AMIODARONE 200 MG TAB PO SCH (10:18)
[2018-04-18] MEDS: metFORMIN 500 MG TAB PO SCH ×2 (10:18→18:03)
[2018-04-18] MEDS: ZINC OXIDE 20% OINT 28.4 GM TUBE TOPICAL SCH ×2 (10:18→19:57)
[2018-04-18] MEDS: METOPROLOL TARTRATE 12.5 MG TAB PO SCH (10:18)
[2018-04-18] MEDS: amLODIPine 5 MG TAB PO SCH (10:18)
[2018-04-18] MEDS: SODIUM CHLORIDE 0.9% 1,000 ML IV SCH ×3 (10:19→20:19)
[2018-04-18] MEDS: LACTULOSE 20 GM/30 ML CUP PO SCH ×2 (10:19→19:57)
[2018-04-18] MEDS: APIXABAN 5 MG TAB PO SCH ×2 (10:19→19:57)
--- NOTE | 2018-04-18 16:25 | CT ---
EXAMINATION TYPE: CT brain wo con DATE OF EXAM: 04/18/2018 HISTORY: Syncope. CT DLP: 1027.6 mGycm. Automated Exposure Control for Dose Reduction was Utilized. TECHNIQUE: CT scan of the head is performed without contrast. COMPARISON: CT brain August 11, 2017. FINDINGS: There is no acute intracranial hemorrhage or midline shift identified. There is diffuse v entricular and sulcal prominence consistent with diffuse age-related cerebral atrophy. There is low- attenuation in the periventricular white matter consistent with chronic small vessel ischemic change. A few small mucous retention cysts or polyps in the left maxillary sinus are redemonstrated. Globes are intact bilaterally. Increasing soft tissue density left extra auditory canal likely reflects wors ening cerumen, correlate clinically. IMPRESSION: No acute intracranial hemorrhage or midline shift. There is moderate diffuse age-relate d cerebral atrophy and chronic small vessel ischemic change redemonstrated. Increasing left-sided cer umen suspected.
--- NOTE | 2018-04-18 22:00 | PN ---
PROGRESS NOTE DATE OF SERVICE: 04/18/2018 This 72-year-old gentleman admitted with syncope also had renal failure and dehydration. With IV fluids the patient is feeling much better. No chest pain. No palpitations. No fever. On exam, alert and oriented x2. Pulse 77, blood pressure 156/70, no orthostatic changes, respiration 20, temperature 98 degrees, pulse ox 98% on room air. HEENT: Oral mucosa moist. Neck: No jugular venous distention. Cardiovascular: S1, S2. Respiratory: Diminished respiration at the bases. A few rhonchi, no crackles. Abdomen: Soft, nontender. Legs: No swelling. Neuro System: Diffusely weak. LAB: Creatinine 1.4, hemoglobin 10.2. ASSESSMENT: 1. Syncope possibly secondary to dehydration. 2. Acute renal failure possibly prerenal with acute tubular necrosis. 3. Anemia, normocytic of chronic disease. 4. Chronic obstructive pulmonary disease. 5. Cerebrovascular accident, transient ischemic attack. 6. Diabetes mellitus type 2. 7. Hypertension. 8. Hyperlipidemia. 9. History of renal disease. 10.History of legal blindness secondary to glaucoma. 11.Cholecystectomy. 12.Laparoscopic cholecystectomy. 13.History of depression. 14.FULL CODE. RECOMMENDATIONS AND DISCUSSION: Recommend to continue current management. Continue with IV fluids. Increase ambulation. Otherwise monitor creatinine closely. Prognosis guarded because of multiple complex medical issues. Further recommendations to follow. MMODL / IJN: [id number] /
[2018-04-19] MEDS: PANTOPRAZOLE 40 MG TABLET PO SCH (05:12)
[2018-04-19] MEDS: LISINOPRIL 10 MG TAB PO SCH (05:12)
[2018-04-19] MEDS: IPRATROPIUM-ALBUTEROL 3 ML NEB INHALATION SCH ×2 (07:58→13:09)
[2018-04-19] MEDS: BUDESONIDE 1 MG/2 ML NEBU INHALATION SCH (07:58)
[2018-04-19 07:59] LABS: Basophils # (A) 0.1 k/uL (0-0.2); Basophils % (A) 1 %; Eosinophils # (A) 0.1 k/uL (0-0.7); Eosinophils % (A) 1 %; HCT 33.2 % (39.0-53.0); HGB 10.6 gm/dL (13.0-17.5); Lymphocytes # (A) 2.2 k/uL (1.0-4.8); Lymphocytes % (A) 34 %; Mean Platelet Volume 7.2; Monocytes # (A) 0.5 k/uL (0-1.0); Monocytes % (A) 8 %; Neutrophils # (A) 3.4 k/uL (1.3-7.7); Neutrophils % (A) 54 %; Platelet Count 314 k/uL (150-450); RBC 3.43 m/uL (4.30-5.90); RDW 13.8 % (11.5-15.5); WBC 6.4 k/uL (3.8-10.6)
--- NOTE | 2018-04-19 08:06 | CONS ---
CONSULTATION DATE OF SERVICE: 04/18/2018. CHIEF COMPLAINT: Syncope. HISTORY OF PRESENT ILLNESS: The patient is a pleasant 72-year-old, male, who was being evaluated by the neurology service per the request of Dr. Shin for a syncopal spell. The patient was brought into [facility] emergency room after he had a witnessed syncopal episode at his place of residence. No seizure-like activity was described. When the patient regained consciousness, no reported confusion was seen according to the nursing staff. In the emergency room, the patient was back to his baseline. His CBC showed anemia with a hemoglobin of 10.2 and hematocrit of 31%. His comprehensive metabolic profile showed renal insufficiency with a BUN of 32 and creatinine of 1.80. He was started on IV hydration and his repeat BUN and creatinine have improved to 23 and 1.46 respectively. His INR, urinalysis, and cardiac enzymes were normal. At the time of my evaluation, he is lying in his bed and appears to be in no acute distress. He denies any neurological symptoms at this time except for bilateral eye blindness which has been present for over 5 years. PAST MEDICAL HISTORY: Chronic obstructive pulmonary disease, history of stroke, diabetes, hypertension, dyslipidemia, gastroesophageal reflux disease, chronic vision loss. SOCIAL HISTORY: The patient is a former smoker. He denies any alcohol or drug use. FAMILY HISTORY: Positive for diabetes. HOME MEDICATIONS: Reviewed in the chart. ALLERGIES: HYDROCODONE. REVIEW OF SYSTEMS: As mentioned above and otherwise negative. PHYSICAL EXAM: Vital signs show a temperature of 98.1, pulse 84, respiration 16, blood pressure 110/55. GENERAL APPEARANCE: The patient is a well-developed, elderly male, who appears to be in no acute distress. HEENT: Normocephalic, atraumatic, the patient has no visual perception, poor dentition is seen, no obvious facial asymmetry is noticed. NECK: Supple with no masses felt. CARDIOVASCULAR: Regular rate and rhythm. ABDOMEN: Nontender nondistended. Extremities showed edema with no clubbing seen. Neurological exam: The patient is awake and oriented to person, place. He could not recall the year. No lateralizing weakness is seen but the patient does have mild generalized weakness rated at 5- out of 5. Sensory exam was normal to light touch in all 4 extremities. No tremors or seizure- like activity is seen. Cranial nerve testing showed blindness in both eyes with no facial asymmetry seen. IMPRESSION: 1. Syncopal spell. 2. Dehydration. 3. Anemia. 4. Renal insufficiency. RECOMMENDATION: The patient did have a true syncopal episode likely related to his dehydration and anemia. He is currently on IV hydration and has not had any further episodes. I will order a CT scan of the brain to rule out any other intracranial etiologies. I will also order a carotid Doppler and EEG. Continue the rest of your current workup and management. Continue neuro checks. I will continue to follow with you. Further recommendations to follow. Thank you for allowing me to participate in the care of your patient. If you have any questions, please feel free to contact me. Please send a copy of this dictation to Dr. Azul and to Dr. Shin and to my office. KASHMIR / LIO: [id number] /
[2018-04-19 08:08] LABS: Calcium 8.6 mg/dL (8.4-10.2); Potassium 4.6 mmol/L (3.5-5.1)
--- NOTE | 2018-04-19 09:00 | CONS ---
CONSULTATION Mr. Barajas is a 72-year-old male, history of diabetes, hypertension, chronic obstructive lung disease, as well as history of being legally blind, who presented with a syncopal episode. He lives at [facility] on the [place] and accordingly got out of bed and passed out for a minute or less. He is feeling well at this time. On presentation, he was noted to have worsening renal function. On the monitor, he is in sinus mechanism. He was in the hospital in December with cholecystitis and underwent cholecystectomy, but at that time had an episode of atrial fibrillation, but he remains in sinus mechanism. He denies any chest pain. No PND. No orthopnea. No peripheral edema. He denies any palpitation. He has not had any discomfort in the chest. During his last admission in December, he had underwent an echocardiogram, that revealed a preserved left ventricular size and systolic function with no significant valvular disease. MEDICATION: At home include, metformin 500 mg twice a day, amlodipine 5 mg daily, Lopressor 12.5 mg daily, lisinopril 10 mg daily, Lasix 20 mg daily, Pulmicort, Dulcolax, aspirin, Eliquis 5 mg twice a day, Cordarone 200 mg daily. Coronary risk factors are remarkable for hypertension and diabetes. REVIEW OF SYSTEMS: RESPIRATORY system: He has history of chronic obstructive lung disease. No recent wheezing or cough. GI system: He had a prior nausea, vomiting, but at this time, stable. system: No dysuria or hematuria. Nervous system: No history of seizure. He had a history of stroke. PHYSICAL EXAMINATION: He is a 72-year-old male, legally blind. Blood pressure running in the 140s with a heart rate in the 70s. HEAD: Normocephalic. EYES: Sclerae anicteric with evidence of cataract noted. HEAD: Normocephalic. Eyes sclerae anicteric. Neck: Good upstroke. No bruit. LUNGS: Clear to auscultation. HEART: Regular rate and rhythm, S1, S2. No S3. No rub or gallop. ABDOMEN: Soft, nontender. Positive bowel sounds. No organomegaly. EXTREMITIES: No edema. Intact distal pulses. LAB DATA: On presentation: BUN and creatinine 32 and 1.8, down to 23 and 1.46. Troponin less than 0.012. Hemoglobin of 10.2, white blood cell of 6.2. EKG revealed a sinus mechanism with right bundle branch block that was noted in the past. Chest x-ray shows no acute infiltrate. IMPRESSION: 1. Syncopal episode, most likely related to dehydration. 2. Paroxysmal atrial fibrillation, remains in sinus mechanism. 3. Worsening renal function improving. 4. Diabetes mellitus. 5. Hypertension. RECOMMENDATION: From the cardiac standpoint, I see no evidence of active cardiac disease at this time. I will continue present therapy. I will stop his aspirin since he is on Eliquis. Lasix is on hold and I do not see any evidence congestive heart failure. I would expect he should be able to be transferred back to [facility] soon. We will see him on an as-needed basis. Please feel free to call us for any question. Thank you for this consult. KASHMIR / LIO: [id number] /
[2018-04-19] MEDS: LACTULOSE 20 GM/30 ML CUP PO SCH (09:33)
[2018-04-19] MEDS: SODIUM CHLORIDE 0.9% 1,000 ML IV SCH (09:33)
[2018-04-19] MEDS: FERROUS SULFATE 325 MG TAB PO SCH (09:34)
[2018-04-19] MEDS: metFORMIN 500 MG TAB PO SCH (09:34)
[2018-04-19] MEDS: amLODIPine 5 MG TAB PO SCH (09:34)
[2018-04-19] MEDS: METOPROLOL TARTRATE 12.5 MG TAB PO SCH (09:34)
[2018-04-19] MEDS: AMIODARONE 200 MG TAB PO SCH (09:34)
[2018-04-19] MEDS: CHOLECALCIFEROL 1,000 UNIT TAB PO SCH (09:35)
[2018-04-19] MEDS: CITALOPRAM HYDROBROMIDE 10 MG TAB PO SCH (09:35)
[2018-04-19] MEDS: APIXABAN 5 MG TAB PO SCH (09:35)
[2018-04-19] MEDS: ZINC OXIDE 20% OINT 28.4 GM TUBE TOPICAL SCH (09:35)
--- NOTE | 2018-04-19 09:44 | US ---
EXAMINATION TYPE: US carotid duplex BILAT DATE OF EXAM: 04/19/2018 COMPARISON: NONE CLINICAL HISTORY: Syncope. Very difficult exam. Exam done portable- patient unable to move toward gilbert hnologist or move his neck. EXAM MEASUREMENTS: RIGHT: Peak Systolic Velocity (PSV) cm/sec ----- Right CCA: 172.7 ----- Right ICA: 133.8 ----- Right ECA: 129.4 ICA/CCA ratio: 0.8 RIGHT: End Diastole cm/sec ----- Right CCA: 22.9 ----- Right ICA: 23.4 ----- Right ECA: 12.4 LEFT: Peak Systolic Velocity (PSV) cm/sec ----- Left CCA: 97.2 ----- Left ICA: 99.6 ----- Left ECA: 74.2 ICA/CCA ratio: 1.0 LEFT: End Diastole cm/sec ----- Left CCA: 15.2 ----- Left ICA: 18.8 ----- Left ECA: 74.2 VERTEBRALS (direction of flow): Right Vertebral: Antegrade Left Vertebral: Antegrade Rhythm: Normal Moderate/severe amount of plaque visualized bilaterally. Elevated velocities visualized within the ri ght distal CCA, right proximal ICA, right ECA, and left bulb IMPRESSION: 1. Bilateral Atheromatous plaquing. 2. Atheromatous plaquing is causing moderate stenosis between 50 and 69% right internal carotid arter y. Stenosis of the right external carotid arteries also present to similar degree. 3. Mild narrowing without significant flow-limiting stenosis left internal carotid artery. Criteria for Assigning % of Stenosis / Diameter reduction (Estimation based on the indirect measurements of the internal carotid artery velocities (ICA PSV). 1. Normal (no stenosis)=ICA PSV < 125 cm/s: ratio < 2.0: ICA EDV<40 cm/s. 2. Less than 50% stenosis=ICA PSV < 125 cm/s: ratio < 2.0: ICA EDV<40 cm/s. 3. 50 to 69% stenosis=ICA PSV of 125 to 230 cm/s: ration 2.0 ? 4.0: ICA EDV 40-100 cm/s. 4. Greater than 70% stenosis to near occlusion= ICA PSV > 230 cm/s: ratio > 4.0: ICA EDV > 100 cm/s. 5. Near occlusion= ICA PSV velocities may be low or undetectable: variable ratio and ICA EDV. 6. Total occlusion=unable to detect flow.
[2018-04-19 13:02] VITALS: BP 144/69; TEMP 97.6
[2018-04-19 13:11] VITALS: RESP 14
[2018-04-19 13:16] VITALS: PULSE 82
--- NOTE | 2018-04-19 14:25 | P.DS ---
Providers Date of admission: 04/17/18 13:25 Attending physician: Tammie Shin Consults: 04/17/18 12:54 Consult Physician Urgent Consulting Provider: Larry Gomez Consult Reason/Comments: Syncope Do you want consulting provider notified?: Yes 04/17/18 19:36 Consult Physician Routine Consulting Provider: Colby Sorto Consult Reason/Comments: syncope Do you want consulting provider notified?: Yes Primary care physician: Leonides Azul Hospital Course: Final diagnosis #1 syncope possibly secondary to dehydration Acute renal failure possibly prerenal with acute tubular necrosis Anemia normocytic anemia of chronic disease COPD Right carotid stenosis CVA TIA Diabetes mellitus type 2 Hypertension Hyperlipidemia History of renal disease 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 Total time taken 35 minutes. History of present illness this 72-year-old gentleman with a past medical history multiple medical problems was admitted syncope dehydration as well as acute renal failure. Patient had diminished by mouth intake. Patient was treated with IV fluids patient was significantly got better. creatinine improved 1.34 patient also had a carotid stenosis. medications are adjusted. Patient be discharged in a stable condition with guarded prognosis. On exam vitals are stable cardio S1 and S2 normal abdomen soft nontender nervous system system no focal deficit Please refer to the medication list for information also continue with the Accu- Cheks before meals and at bedtime no loss. And as well as CBC BMP in follow-up with creatinine follow-up. Patient Condition at Discharge: Fair Plan - Discharge Summary Discharge Rx Participant: No New Discharge Prescriptions: New Acetaminophen Tab [Tylenol] 650 mg PO Q6HR PRN tab PRN Reason: Mild Pain Or Fever > 100.5 Atorvastatin Calcium [Lipitor] 10 mg PO DAILY #1 tab Continue metFORMIN HCL [Glucophage] 500 mg PO BID@0900,1700 Aspirin 81 mg PO DAILY@0900 Acetaminophen [Tylenol Arthritis] 650 mg PO Q6H PRN PRN Reason: Pain Pantoprazole [Protonix] 40 mg PO DAILY@0600 Budesonide [Pulmicort] 1 mg INHALATION RT-BID@0900,2100 Cholecalciferol (Vitamin D3) [Vitamin D3] 2,000 unit PO DAILY@0900 Ferrous Sulfate [Iron (65 MG Elemental)] 325 mg PO DAILY@0900 Citalopram Hydrobromide [CeleXA] 10 mg PO DAILY@0900 Amiodarone [Cordarone] 200 mg PO DAILY@0900 amLODIPine [Norvasc] 5 mg PO DAILY@0900 Apixaban [Eliquis] 5 mg PO BID@0900,2100 Bisacodyl [Dulcolax] 10 mg RECTAL Q48H PRN PRN Reason: Constipation INSULIN LISPRO (HumaLOG) [humaLOG] See Protocol SQ ACHS Ipratropium-Albuterol Nebulize [Duoneb 0.5 mg-3 mg/3 ml Soln] 3 ml INHALATION RT-Q4H PRN PRN Reason: Shortness Of Breath Or Wheezing Ipratropium-Albuterol Nebulize [Duoneb 0.5 mg-3 mg/3 ml Soln] 3 ml INHALATION RT-QID@00,06,, Lisinopril [Zestril] 10 mg PO DAILY@0600 Ondansetron [Zofran] 4 mg PO Q8H PRN PRN Reason: Nausea And Vomiting Metoprolol Tartrate [Lopressor] 12.5 mg PO DAILY@0900 Furosemide [Lasix] 20 mg PO DAILY@0600 #0 Magnesium Hydroxide [Milk of Magnesia] 2,400 mg PO DAILY PRN PRN Reason: Constipation Dimethicone/Zinc Oxide [Inzo Zinc Oxide Barrier Cream] 1 applic TOPICAL BID Lactulose 10 gm PO BID Dimethicone/Zinc Oxide [Inzo Zinc Oxide Barrier Cream] 1 applic TOPICAL DAILY PRN PRN Reason: CLEANSE Discharge Medication List metFORMIN HCL [Glucophage] 500 mg PO BID@0900,1700 05/05/16 [History] Aspirin 81 mg PO DAILY@0908/11/17 [History] Acetaminophen [Tylenol Arthritis] 650 mg PO Q6H PRN 08/20/17 [History] Pantoprazole [Protonix] 40 mg PO DAILY@0608/20/17 [History] Budesonide [Pulmicort] 1 mg INHALATION RT-BID@0900,2100 01/08/18 [History] Cholecalciferol (Vitamin D3) [Vitamin D3] 2,000 unit PO DAILY@0901/08/18 [ History] Citalopram Hydrobromide [CeleXA] 10 mg PO DAILY@0901/08/18 [History] Ferrous Sulfate [Iron (65 MG Elemental)] 325 mg PO DAILY@89901/08/18 [History] Amiodarone [Cordarone] 200 mg PO DAILY@89902/04/18 [History] Apixaban [Eliquis] 5 mg PO BID@0900,2100 02/04/18 [History] Bisacodyl [Dulcolax] 10 mg RECTAL Q48H PRN 02/04/18 [History] INSULIN LISPRO (HumaLOG) [humaLOG] See Protocol SQ ACHS 02/04/18 [History] Ipratropium-Albuterol Nebulize [Duoneb 0.5 mg-3 mg/3 ml Soln] 3 ml INHALATION RT -Q4H PRN 02/04/18 [History] Ipratropium-Albuterol Nebulize [Duoneb 0.5 mg-3 mg/3 ml Soln] 3 ml INHALATION RT -QID@00,06,12,17 02/04/18 [History] Lisinopril [Zestril] 10 mg PO DAILY@0602/04/18 [History] Metoprolol Tartrate [Lopressor] 12.5 mg PO DAILY@89902/04/18 [History] Ondansetron [Zofran] 4 mg PO Q8H PRN 02/04/18 [History] amLODIPine [Norvasc] 5 mg PO DAILY@89902/04/18 [History] Furosemide [Lasix] 20 mg PO DAILY@0600 #0 02/06/18 [Rx] Dimethicone/Zinc Oxide [Inzo Zinc Oxide Barrier Cream] 1 applic TOPICAL BID [History] Dimethicone/Zinc Oxide [Inzo Zinc Oxide Barrier Cream] 1 applic TOPICAL DAILY PRN 04/17/18 [History] Lactulose 10 gm PO BID 04/17/18 [History] Magnesium Hydroxide [Milk of Magnesia] 2,400 mg PO DAILY PRN 04/17/18 [History] Acetaminophen Tab [Tylenol] 650 mg PO Q6HR PRN tab 04/19/18 [Rx] Atorvastatin Calcium [Lipitor] 10 mg PO DAILY #1 tab 04/19/18 [Rx] Follow up Appointment(s)/Referral(s): Leonides Azul MD [Primary Care Provider] - 1-2 days
--- NOTE | 2018-04-19 15:37 | P.PN ---
Subjective Progress Note Date: 04/19/18 Principal diagnosis: Altered Mental Status Neurology is following on a 72-year-old male for syncopal spell. Patient was brought to the emergency room after having a witnessed syncopal episode. No seizure-like activity was observed prior to the patient regaining consciousness , patient had no reported confusion. Patient was back to baseline. CBC showed anemia. CMP showed renal insufficiency. Patient was given IV hydration. INR, urinalysis and cardiac enzymes were normal. Patient did have carotid Doppler study ordered since admission which noted bilateral atheromatous plaquing, causing moderate stenosis between 50 and 69% in the right internal carotid artery. Stenosis of the right external carotid also present to a similar degree. Mild narrowing without significant flow-limiting stenosis in the left internal carotid artery. On contact, patient was alert, resting in bed in no acute distress. Patient is known to be blind. Objective - Vital Signs Vital signs: Vital Signs Temp 97.6 F 04/19/18 12:39 Pulse 82 04/19/18 13:16 Resp 14 04/19/18 13:16 BP 144/69 04/19/18 12:39 Pulse Ox 98 04/19/18 12:39 Intake & Output 04/18/18 04/19/18 04/19/18 18:59 06:59 18:59 Intake Total 600 850 600 Balance 600 850 600 Intake: Intake, IV Titration 600 650 600 Amount Sodium Chloride 0.9% 1, 600 650 600 000 ml @ 75 mls/hr IV . [id number] [facility] Rx#:[id number] Oral 200 Other: Voiding Method Diaper Diaper Diaper Incontinent Incontinent # Voids 2 2 2 - Exam General appearance: Alert, no apparent distress. Head: Atraumatic, normocephalic, normal inspection Eyes: blind, no visual perception Ear, nose and throat: Normal exam, mucous membranes moist Neck: Normal inspection, absent tenderness, lymphadenopathy. Respiratory: No increased work of breathing Cardiovascular: Regular rate, rhythm GI/abdominal: No guarding, no rigidity Extremities: moves all extremities, mild generalized weakness Neurological: no lateralizing weakness no seizure activity noted on physical exam no pronator drift and no nystagmus. Strength: moves all extremities, mild generalized weakness Sensation: Left lower extremity: normal Right lower extremity: normal Left upper extremity: normal Right upper extremity:normal Psychological: Mood and Affect appropriate for setting - Labs CBC & Chem 7: 11/23/18 06:49 04/19/18 06:49 Labs: Abnormal Lab Results - Last 24 Hours (Table) 04/19/18 04/19/18 Range/Units 06:49 06:49 RBC 3.43 L (4.30-5.90) m/uL Hgb 10.6 L (13.0-17.5) gm/dL Hct 33.2 L (39.0-53.0) % Chloride 109 H (98-107) mmol/L Carbon Dioxide 21 L (22-30) mmol/L Creatinine 1.35 H (0.66-1.25) mg/dL Assessment and Plan (1) Acute kidney injury Current Visit: Yes Status: Acute Code(s): N17.9 - ACUTE KIDNEY FAILURE, UNSPECIFIED SNOMED Code(s): 21985157 (2) Dehydration Current Visit: Yes Status: Acute Code(s): E86.0 - DEHYDRATION SNOMED Code( s): 56570361 (3) Syncope Current Visit: Yes Status: Acute Code(s): R55 - SYNCOPE AND COLLAPSE SNOMED Code(s): 290187692 Plan: patient does appear to have had a syncopal episode likely related to dehydration and anemia. Since rehydration, patient has not had any further incident. CT of the brain noted no acute process, chronic small vessel ischemic disease. EEG ordered and pending. Carotid Doppler as stated and noted previously. Status: Once patient's EEG is taken, patient can be cleared for discharge from a neurological standpoint. If discharged, advised patient to follow-up in our office within 14 days. I have discussed the plan of care with the physician prior to implementation and he agrees with the plan as implemented.
== END 2018-04-19 16:34 ==
LOC: EC 09:40 → 3NMEDONC 13:25
PROVIDERS: ADMIT Hospitalist; ATTEND Hospitalist
DX: R55 Syncope and collapse (principal); E86.0 Dehydration; H54.8 Legal blindness, as defined in USA; I12.9 Hypertensive chronic kidney disease with stage 1 through stage 4 chronic kidney disease, or unspecified chronic kidney disease; E11.22 Type 2 diabetes mellitus with diabetic chronic kidney disease; N18.9 Chronic kidney disease, unspecified; N17.9 Acute kidney failure, unspecified; I65.21 Occlusion and stenosis of right carotid artery; F32.9 Major depressive disorder, single episode, unspecified; J44.9 Chronic obstructive pulmonary disease, unspecified; E78.5 Hyperlipidemia, unspecified; H40.9 Unspecified glaucoma; Z74.01 Bed confinement status; D63.8 Anemia in other chronic diseases classified elsewhere; I69.30 Unspecified sequelae of cerebral infarction; I48.0 Paroxysmal atrial fibrillation; K21.9 Gastro-esophageal reflux disease without esophagitis; Z79.82 Long term (current) use of aspirin; Z79.899 Other long term (current) drug therapy; Z79.01 Long term (current) use of anticoagulants; Z79.51 Long term (current) use of inhaled steroids; Z79.4 Long term (current) use of insulin; Z88.5 Allergy status to narcotic agent; Z90.49 Acquired absence of other specified parts of digestive tract; Z91.81 History of falling; Z87.01 Personal history of pneumonia (recurrent); Z87.891 Personal history of nicotine dependence; Z83.3 Family history of diabetes mellitus; Z81.8 Family history of other mental and behavioral disorders
CPT/HCPCS: 96360; 96361 ×2; 99285; 36415; 94640 ×5; 94760; 93005; 97162; 97166; 80053; 80048 ×2; 82550; 82553; 83735; 84484; 85025 ×3; 85610; 85730; 81001; 71046; 93880; 70450; G0378 ×3

== ENCOUNTER 2018-05-10 18:13 | Inpatient (IN) | payer MEDICARE, OTHER ==
--- NOTE | 2018-05-10 18:31 | ED ---
General Adult HPI - General Chief complaint: Arrhythmia/Palpitations Stated complaint: Low Heart Rate Source: patient Mode of arrival: EMS Limitations: no limitations - History of Present Illness Initial comments: Dictation was produced using [employer] dictation software. please excuse any grammatical, word or spelling errors. Chief Complaint: 72-year-old male with past medical history of COPD, CVA, blindness, dyslipidemia presents with tachycardia and fall. History of Present Illness: She is 72-year-old male presents via EMS from care home. Patient was allegedly witnessed to fall out of sitting position at approximately 3 AM. EMS was called several hours later. EMS reports that they noted he was severely bradycardic. An attempt was made to transcutaneously pace agentWendy Kellogg is a poor historian and unable to provide detailed HPI. Is believed to be around patient's baseline. Nonetheless he is here. Denies any pain at this time. Patient has chronic issues and is clinically blind. - Related Data Home Medications Medication Instructions Recorded Confirmed Aspirin 81 mg PO DAILY 08/11/17 05/10/18 Acetaminophen [Tylenol Arthritis] 650 mg PO Q6H PRN 08/20/17 05/10/18 Pantoprazole [Protonix] 40 mg PO DAILY 08/20/17 05/10/18 Budesonide [Pulmicort] 1 mg INHALATION RT-BID 01/08/18 05/10/18 Cholecalciferol (Vitamin D3) 2,000 unit PO DAILY@0900 01/08/18 05/10/18 [Vitamin D3] Citalopram Hydrobromide [CeleXA] 10 mg PO DAILY 01/08/18 05/10/18 Ferrous Sulfate [Iron (65 MG 325 mg PO DAILY 01/08/18 05/10/18 Elemental)] Amiodarone [Cordarone] 200 mg PO DAILY 02/04/18 05/10/18 Ipratropium-Albuterol Nebulize 3 ml INHALATION RT-Q4H PRN 02/04/18 05/10/18 [Duoneb 0.5 mg-3 mg/3 ml Soln] Ipratropium-Albuterol Nebulize 3 ml INHALATION RT-QID 02/04/18 05/10/18 [Duoneb 0.5 mg-3 mg/3 ml Soln] Lisinopril [Zestril] 10 mg PO DAILY 02/04/18 05/10/18 Ondansetron [Zofran] 4 mg PO Q8H PRN 02/04/18 05/10/18 amLODIPine [Norvasc] 5 mg PO DAILY 02/04/18 05/10/18 Dimethicone/Zinc Oxide [Inzo Zinc 1 applic TOPICAL BID 04/17/18 05/10/18 Oxide Barrier Cream] Dimethicone/Zinc Oxide [Inzo Zinc 1 applic TOPICAL DAILY PRN 04/17/18 05/10/18 Oxide Barrier Cream] Lactulose 10 gm PO BID PRN 04/17/18 05/10/18 Magnesium Hydroxide [Milk of 2,400 mg PO Q72H PRN 04/17/18 05/10/18 Magnesia] Ammonium Lactate Lotion 1 applic TOPICAL BID PRN 05/10/18 05/10/18 [Lac-Hydrin 12% Lotion] Apixaban [Eliquis] 5 mg PO BID 05/10/18 05/10/18 Atorvastatin Calcium [Lipitor] 10 mg PO HS 05/10/18 05/10/18 Furosemide [Lasix] 20 mg PO DAILY 05/10/18 05/10/18 Insulin Lispro [humaLOG Kwikpen] See Protocol SQ AC-TID 05/10/18 05/10/18 Melatonin 3 mg PO HS PRN 05/10/18 05/10/18 Metoprolol Tartrate [Lopressor] 12.5 mg PO DAILY 05/10/18 05/10/18 Pioglitazone HCl [Actos] 15 mg PO DAILY 05/10/18 05/10/18 Allergies Allergy/AdvReac Type Severity Reaction Status Date / Time hydrocodone bitartrate AdvReac Nausea Verified 05/10/18 18:48 [From Vicodin] Review of Systems ROS Statement: Those systems with pertinent positive or pertinent negative responses have been documented in the HPI. ROS Other: All systems not noted in ROS Statement are negative. Past Medical History Past Medical History: COPD, CVA/TIA, Diabetes Mellitus, Hyperlipidemia, Hypertension, Renal Disease, Syncope Additional Past Medical History / Comment(s): NIDDM type II, legally blind bilaterally secondary to complications of glaucoma; right-sided deficits from previous CVA,hx of falls, per [facility] walks w/ assist or uses w/c.needs help w/ feeding and dressing bronchitis, pneumonitis hx of falls. DDD, hx of T12 compression fx, spondylothesis, urinary/bowel incontinence, bed bound w/ assist to chair per [facility]. A+O to person/place = baseline, cholecystitis, anemia, hx of respiratory failure w/ hypoxia. History of Any Multi-Drug Resistant Organisms: None Reported Past Surgical History: Cholecystectomy Additional Past Surgical History / Comment(s): Laparoscopic cholecystectomy Past Anesthesia/Blood Transfusion Reactions: No Reported Reaction Past Psychological History: Depression Smoking Status: Former smoker - Past Family History Father Family Medical History: Diabetes Mellitus Mother Family Medical History: Dementia, Diabetes Mellitus Brother(s) Family Medical History: Unable to Obtain General Exam - General Exam Comments Initial Comments: PHYSICAL EXAM: General Impression: Alert and oriented x3, not in acute distress HEENT: Normocephalic atraumatic, extra-ocular movements intact, pupils equal and reactive to light bilaterally, mucous membranes moist. Cardiovascular: Slow rhythm Chest: Lungs clear to auscultation bilaterally, no rhonchi, no wheeze, no rales Abdomen: Bowel sounds present, abdomen soft, non-tender, non-distended, no organomegaly Musculoskeletal: Pulses present and equal in all extremities, no peripheral edema Motor: Power 5/5 bilaterally, no focal deficits noted Neurological: CN II-XII grossly intact, no focal motor or sensory deficits noted Skin: Intact with no visualized rashes Psych: Normal affect and mood Limitations: no limitations Course Vital Signs 05/10/18 05/10/18 18:16 19:10 Temperature 98.4 F Pulse Rate 46 L 39 L Respiratory 18 18 Rate Blood Pressure 161/66 143/92 O2 Sat by Pulse 100 97 Oximetry Medical Decision Making - Medical Decision Making ED course: 72-year-old male with multiple comorbidities presents with bradycardia and fall. Vital signs upon arrival shows heart rate of 46, rest of vital signs within acceptable limits.Laboratory evaluation obtained. Leukocytosis of 11.7 likely secondary to stress. Coag panel is unremarkable. Metabolic panel shows potassium 5.8, CO2 20, mildly elevated renal markers and glucose of 143. Cardiac enzymes negative. Rest of metabolic panel is negative. Chest x-ray is obtained showing no acute processes. Computed tomography scan of the head and C-spine are obtained showing no acute processes. Patient observed in emergency department. It is likely that his bradycardia is secondary to hyperkalemia. Patient given hyperkalemia cocktail. Given intravenous fluids for evidence of dehydration on labs and physical examination. Patient remains normotensive. We will have patient admitted to cardiac telemetry. EKG Interpretation: A 12 lead EKG was obtained. It was interpreted by myself and attending physician. There is a P wave before every QRS complex. Rate is 53. Rhythm is sinus bradycardia with sinus arrhythmia, MS interval 194, QS 152, QTc 47. QT is not prolonged. No ST segment depression or elevation. This EKG was compared to a previous EKG that was obtained on 04/17/2018 and showed no significant change. Overall, this EKG is unremarkable - Lab Data Result diagrams: 05/10/18 18:29 05/10/18 18:29 Lab Results 05/10/18 05/10/18 05/10/18 Range/Units 18:29 18:29 18:29 WBC 11.7 H (3.8-10.6) k/uL RBC 3.51 L (4.30-5.90) m/uL Hgb 11.0 L (13.0-17.5) gm/dL Hct 33.4 L (39.0-53.0) % MCV 95.1 (80.0-100.0) fL MCH 31.4 (25.0-35.0) pg MCHC 33.0 (31.0-37.0) g/dL RDW 13.4 (11.5-15.5) % Plt Count 310 (150-450) k/uL Neutrophils % 76 % Lymphocytes % 14 % Monocytes % 7 % Eosinophils % 1 % Basophils % 0 % Neutrophils # 8.9 H (1.3-7.7) k/uL Lymphocytes # 1.6 (1.0-4.8) k/uL Monocytes # 0.8 (0-1.0) k/uL Eosinophils # 0.1 (0-0.7) k/uL Basophils # 0.0 (0-0.2) k/uL PT (9.0-12.0) sec INR (<1.2) APTT (22.0-30.0) sec Sodium 135 L (137-145) mmol/L Potassium 5.8 H (3.5-5.1) mmol/L Chloride 104 (98-107) mmol/L Carbon Dioxide 20 L (22-30) mmol/L Anion Gap 11 mmol/L BUN 41 H (9-20) mg/dL Creatinine 1.87 H (0.66-1.25) mg/dL Est GFR (CKD-EPI)AfAm 40 (>60 ml/min/1.73 sqM) Est GFR (CKD-EPI)NonAf 35 (>60 ml/min/1.73 sqM) Glucose 143 H (74-99) mg/dL Calcium 8.5 (8.4-10.2) mg/dL Magnesium 2.0 (1.6-2.3) mg/dL Total Bilirubin 0.6 (0.2-1.3) mg/dL AST 22 (17-59) U/L ALT 26 (21-72) U/L Alkaline Phosphatase 78 (38-126) U/L Total Creatine Kinase 95 (55-170) U/L CK-MB (CK-2) 1.0 (0.0-2.4) ng/mL CK-MB (CK-2) Rel Index 1.1 Troponin I 0.015 (0.000-0.034) ng/mL Total Protein 6.4 (6.3-8.2) g/dL Albumin 3.7 (3.5-5.0) g/dL 05/10/18 Range/Units 18:29 WBC (3.8-10.6) k/uL RBC (4.30-5.90) m/uL Hgb (13.0-17.5) gm/dL Hct (39.0-53.0) % MCV (80.0-100.0) fL MCH (25.0-35.0) pg MCHC (31.0-37.0) g/dL RDW (11.5-15.5) % Plt Count (150-450) k/uL Neutrophils % % Lymphocytes % % Monocytes % % Eosinophils % % Basophils % % Neutrophils # (1.3-7.7) k/uL Lymphocytes # (1.0-4.8) k/uL Monocytes # (0-1.0) k/uL Eosinophils # (0-0.7) k/uL Basophils # (0-0.2) k/uL PT 10.2 (9.0-12.0) sec INR 0.9 (<1.2) APTT 24.3 (22.0-30.0) sec Sodium (137-145) mmol/L Potassium (3.5-5.1) mmol/L Chloride (98-107) mmol/L Carbon Dioxide (22-30) mmol/L Anion Gap mmol/L BUN (9-20) mg/dL Creatinine (0.66-1.25) mg/dL Est GFR (CKD-EPI)AfAm (>60 ml/min/1.73 sqM) Est GFR (CKD-EPI)NonAf (>60 ml/min/1.73 sqM) Glucose (74-99) mg/dL Calcium (8.4-10.2) mg/dL Magnesium (1.6-2.3) mg/dL Total Bilirubin (0.2-1.3) mg/dL AST (17-59) U/L ALT (21-72) U/L Alkaline Phosphatase (38-126) U/L Total Creatine Kinase (55-170) U/L CK-MB (CK-2) (0.0-2.4) ng/mL CK-MB (CK-2) Rel Index Troponin I (0.000-0.034) ng/mL Total Protein (6.3-8.2) g/dL Albumin (3.5-5.0) g/dL Disposition Clinical Impression: Hyperkalemia Disposition: ADMITTED IP TO THIS HOSP Referrals: Leonides Azul MD [Primary Care Provider] - 1-2 days Decision Time: 19:58
--- NOTE | 2018-05-10 18:42 | XR ---
EXAMINATION TYPE: XR chest 1V portable DATE OF EXAM: 05/10/2018 COMPARISON: 04/17/2018 HISTORY: Dysrhythmia TECHNIQUE: Single frontal view of the chest is obtained. FINDINGS: There is no heart failure nor confluent pneumonic infiltrate. Heart appears enlarged. Ther e are chest leads. Costophrenic angles are clear. There is mild elevated right diaphragm. IMPRESSION: No active cardiopulmonary disease. No change.
[2018-05-10 18:54] LABS: Basophils % (A) 0 %; Eosinophils # (A) 0.1 k/uL (0-0.7); Eosinophils % (A) 1 %; HCT 33.4 % (39.0-53.0); Lymphocytes # (A) 1.6 k/uL (1.0-4.8); Lymphocytes % (A) 14 %; MCH 31.4 pg (25.0-35.0); MCV 95.1 fL (80.0-100.0); Mean Platelet Volume 7.4; Monocytes # (A) 0.8 k/uL (0-1.0); Monocytes % (A) 7 %; Neutrophils # (A) 8.9 k/uL (1.3-7.7); Neutrophils % (A) 76 %; Platelet Count 310 k/uL (150-450); RBC 3.51 m/uL (4.30-5.90); RDW 13.4 % (11.5-15.5); WBC 11.7 k/uL (3.8-10.6)
[2018-05-10 19:04] LABS: INR 0.9 (<1.2); Partial Thromboplastin Time 24.3 sec (22.0-30.0); Prothrombin Time 10.2 sec (9.0-12.0)
[2018-05-10 19:32] LABS: Albumin 3.7 g/dL (3.5-5.0); Calcium 8.5 mg/dL (8.4-10.2); Potassium 5.8 mmol/L (3.5-5.1); Total Bilirubin 0.6 mg/dL (0.2-1.3); Total Protein 6.4 g/dL (6.3-8.2)
--- NOTE | 2018-05-10 19:33 | CT ---
EXAMINATION TYPE: CT brain cspine wo con DATE OF EXAM: 05/10/2018 COMPARISON: CT brain 04/18/2018 HISTORY: Bradycardia headache. Neck pain CT DLP: 1443.3 mGycm Automated exposure control for dose reduction was used. TECHNIQUE: CT scan of the head and cervical spine are performed without contrast. FINDINGS: There is diffuse cerebral cortical atrophy. There is no mass effect nor midline shift. Th ere is 1 cm lacunar infarct right thalamus. There is patchy hypodensity in the periventricular white matter. There is no evidence of intracranial hemorrhage. Cervical vertebra have fairly normal alignment. Disc spaces are fairly normal for age. Skull base is intact. There is no evidence of a fracture. Facet joints are intact. There is no evidence of cervical paraspinal mass. IMPRESSION: Cerebral atrophy and chronic small vessel ischemia. No change compared to old exam. Negative CT scan of the cervical spine.
[2018-05-10 19:37] LABS: Troponin I 0.015 ng/mL (0.000-0.034)
[2018-05-10] MEDS ORDERED: FUROSEMIDE 10 MG/ML 4 ML VIAL IV STA (19:50)
[2018-05-10] MEDS ORDERED: ALBUTEROL NEB (CONC) 2.5 MG/0.5 ML INHALATION ONE (19:50)
[2018-05-10] MEDS ORDERED: INSULIN REGULAR 100 UNIT/ML VIAL IV ONE (19:50)
[2018-05-10] MEDS ORDERED: DEXTROSE 50%-WATER 50 ML SYRINGE IVP ONE (19:50)
[2018-05-10] MEDS ORDERED: CALCIUM GLUCONATE 1,000 MG in SODIUM CHLORIDE 0.9% 100 ML IVPB ONE (19:52)
[2018-05-10] MEDS ORDERED: SODIUM POLYSTYRENE SULFONATE 15 GM/60 ML BOTTLE PO ONE (19:55)
[2018-05-10] MEDS ORDERED: ACETAMINOPHEN TAB 325 MG TAB PO PRN (19:58)
[2018-05-10] MEDS ORDERED: ONDANSETRON 4 MG/2 ML VIAL IVP PRN (19:58)
[2018-05-10] MEDS ORDERED: NALOXONE 0.4 MG/ML 1 ML VIAL IV PRN (19:58)
[2018-05-10] MEDS: SODIUM CHLORIDE 0.9% 1,000 ML IV SCH (20:19)
[2018-05-10 20:22] LABS: Glucose,Whole Blood 171 mg/dL (75-99)
[2018-05-10 21:50] LABS: Glucose,Whole Blood 147 mg/dL (75-99)
[2018-05-11 00:37] VITALS: BMI 18.6
[2018-05-11 02:21] LABS: Calcium 8.5 mg/dL (8.4-10.2); Potassium 4.8 mmol/L (3.5-5.1)
[2018-05-11 03:55] LABS: Hemoglobin A1C 6.2 % (4.0-6.0)
[2018-05-11 06:13] LABS: Glucose,Whole Blood 113 mg/dL (75-99)
[2018-05-11] MEDS: INSULIN ASPART 100 UNIT/ML 1 ML 10 ML VIAL SQ SCH ×4 (06:19→20:17)
[2018-05-11] MEDS ORDERED: PANTOPRAZOLE 40 MG/10 ML VIAL IV SCH (09:00)
[2018-05-11 11:49] LABS: Glucose,Whole Blood 197 mg/dL (75-99)
[2018-05-11] MEDS ORDERED: AMMONIUM LACTATE 12% LOTION 225 GM BTL TOPICAL PRN (12:38)
[2018-05-11] MEDS ORDERED: MELATONIN 3 MG TABLET PO PRN (12:38)
[2018-05-11] MEDS ORDERED: ZINC OXIDE 20% OINT 28.4 GM TUBE TOPICAL PRN (12:38)
[2018-05-11] MEDS ORDERED: LACTULOSE 20 GM/30 ML CUP PO PRN (12:38)
[2018-05-11] MEDS ORDERED: NON-FORMULARY DRUG (Acetaminophen [Tylenol Arthritis] 650 MG) PO PRN (12:38)
[2018-05-11] MEDS ORDERED: ONDANSETRON 4 MG TAB PO PRN (12:38)
[2018-05-11] MEDS ORDERED: IPRATROPIUM-ALBUTEROL 3 ML NEB INHALATION PRN (12:38)
[2018-05-11] MEDS ORDERED: MAGNESIUM HYDROXIDE 2,400 MG/10 ML CUP PO PRN (12:38)
[2018-05-11] MEDS ORDERED: FUROSEMIDE 20 MG TAB PO SCH (12:45)
[2018-05-11] MEDS ORDERED: AMIODARONE 200 MG TAB PO SCH (12:45)
[2018-05-11] MEDS: BUDESONIDE 1 MG/2 ML NEBU INHALATION SCH ×2 (13:15→21:28)
--- NOTE | 2018-05-11 14:35 | HP ---
HISTORY AND PHYSICAL DATE OF ADMISSION: 05/10/2018 DATE OF SERVICE: 05/11/2018 PRESENTING COMPLAINT: Bradycardia. HISTORY OF PRESENTING COMPLAINT: This is a 72-year-old patient of Dr. Thomas. Chronic stable medical conditions include COPD, diabetes, legally blind, hypertension, hyperlipidemia, chronic right- sided weakness from prior stroke and bladder and stool incontinence. The patient needs to get help with transfer at the [facility]. He resides in the [facility]. At the [facility] the patient slid down from his bed. There was no injury. There was no trauma, but when EMS arrived the patient was found to have his heart rate down in the 30s and patient was transferred here. Patient did get 1 dose of Lasix in the ER. Patient's BUN and creatinine is elevated from January of this year. The patient did have a transcutaneous pacer placed. The patient is on a beta eduardo, small dose. The patient's vision is poor at baseline. REVIEW OF SYSTEMS: CONSTITUTIONAL: None. HEENT: Very poor vision. RESPIRATORY: None. CARDIOVASCULAR: None. GASTROINTESTINAL: None. GENITOURINARY: Incontinence. MUSCULOSKELETAL: None. DERMATOLOGICAL: None. HEMATOLOGIC: None. LYMPHATICS: None. PSYCHIATRY: None. NEUROLOGICAL: Some right-sided weakness. Poor eyesight. PAST MEDICAL HISTORY: COPD, stroke with right-sided weakness, diabetes type 2, hypertension, hyperlipidemia, legally blind, chronic T12 compression fracture, spondylolisthesis, incontinent, bed- bound, needs assistance for transfer. PAST SURGICAL HISTORY: Cholecystectomy. SOCIAL HISTORY: Lives at the [facility]. Smoked for 47 years, stopped in 2012. No alcohol. HOME MEDS: 1. Zinc oxide barrier cream topical b.i.d. 2. Lac-Hydrin 12% topical b.i.d. p.r.n. 3. Zofran 4 mg q.8h p.r.n. 4. Milk of magnesia 25 mg q.72h p.r.n. 5. DuoNeb q.i.d. plus q.4h p.r.n. 6. Tylenol Arthritis 650 mg q.6h p.r.n. 7. Insulin lispro a.c. t.i.d. 8. Lactulose 10 grams p.o. b.i.d. p.r.n. 9. Pulmicort 1 mg b.i.d. 10.Protonix 40 mg p.o. daily. 11.Lopressor 12.5 p.o. daily. 12.Eliquis 5 mg b.i.d. 13.Melatonin 3 mg q.h.s. p.r.n. 14.Zestril 10 mg p.o. daily. 15.Lasix 20 mg p.o. daily. 16.Iron 325 p.o. daily. 17.Celexa 10 mg a day. 18.Vitamin D3 2000 units p.o. daily. 19.Lipitor 10 mg q.h.s. 20.Norvasc 5 mg p.o. daily. 21.Actos 50 mg p.o. daily. 22.Aspirin 81 mg p.o. daily. 23.Amiodarone 200 mg p.o. daily. 24.Cordarone 200 mg p.o. daily. ALLERGIES: VICODIN. PHYSICAL EXAMINATION: On examination, temperature 98.4, pulse 30s on presentation, respiration 18, blood pressure 142/92, pulse ox 97% on 3 L. GENERAL APPEARANCE: Average build, sitting up, awake. EYES: Pupils equal, conjunctivae dirty. HEENT: External nose and ears normal. Oral cavity normal. NECK: JVD unable to assess. Mass not palpable. Respiratory effort normal. LUNGS: Slightly decreased breath sounds. CARDIOVASCULAR: First and second sounds normal. No edema. ABDOMEN: Soft, nontender. Liver and spleen not palpable. LYMPHATICS: No lymph node palpable in neck or axillae. PSYCHIATRY: Patient is able to answer questions. NEUROLOGICAL: Pupils equal. Poor eyesight, can barely see light. No facial asymmetry. Some weakness on the right side. INVESTIGATIONS: Potassium 4.8, BUN 44, creatinine 1. The patient's creatinine was 1.1 back on 02/06/2018. Patient's last 2D echo 2 months ago showed the EF preserved at 55-60 percent. ASSESSMENT: 1. Significant bradycardia, possibly symptomatic in a patient who is on a beta eduardo that has been discontinued. 2. 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 3. Chronic obstructive pulmonary disease in an ex-smoker. 4. Diabetes mellitus type 2 on oral hypoglycemic. 5. Hyperlipidemia. 6. Essential hypertension. 7. Chronic T12 compression fracture. 8. Urine bowel incontinence. 9. Chronic medical debility. 10.Legally blind, patient only barely able to perceive light. 11.Hypertensive heart disease. 12.Chronic medical debility, patient needs assistance for transfer. 13.Possible acute renal failure from patient being on diuretics. Ejection fraction is well preserved. PLAN: Home medications will be resumed. Beta eduardo has been held. Cardiology is consulted. Patient is put on telemetry. Will gently hydrate the patient. Repeat electrolytes in the morning. Care was discussed with the patient. MMODL / IJN: [id number] /
[2018-05-11] MEDS: FERROUS SULFATE 325 MG TAB PO SCH (15:18)
[2018-05-11] MEDS: ASPIRIN 81 MG PO SCH (15:18)
[2018-05-11] MEDS: amLODIPine 5 MG TAB PO SCH (15:18)
[2018-05-11] MEDS: LISINOPRIL 10 MG TAB PO SCH (15:18)
[2018-05-11] MEDS: ZINC OXIDE 20% OINT 28.4 GM TUBE TOPICAL SCH ×2 (15:18→20:42)
[2018-05-11] MEDS: APIXABAN 5 MG TAB PO SCH ×2 (15:18→20:42)
[2018-05-11] MEDS: CITALOPRAM HYDROBROMIDE 10 MG TAB PO SCH (15:18)
[2018-05-11] MEDS: PIOGLITAZONE 15 MG TAB PO SCH (15:19)
[2018-05-11] MEDS: LACTATED RINGERS 1,000 ML IV SCH (15:20)
[2018-05-11] MEDS: IPRATROPIUM-ALBUTEROL 3 ML NEB INHALATION SCH ×2 (16:51→21:28)
[2018-05-11 17:11] LABS: Glucose,Whole Blood 82 mg/dL (75-99)
[2018-05-11 19:55] LABS: Glucose,Whole Blood 131 mg/dL (75-99)
[2018-05-11] MEDS: ATORVASTATIN 10 MG TAB PO SCH (20:42)
[2018-05-11] MEDS: LORazepam 0.5 MG TAB PO PRN (20:47)
[2018-05-11] MEDS: SODIUM CHLORIDE 0.9% 1,000 ML IV SCH (20:48)
--- NOTE | 2018-05-11 22:11 | CONS ---
CONSULTATION This is a 72-year-old gentleman who lives in [facility]. He has a history of COPD, hypertension, hyperlipidemia. He is blind in both his eyes. He has been hospitalized about a year ago with a history of multiple falls as well. He apparently was sitting and at about 3:00 am he tried to get out of the bed on his own and he fell down. After the EMS arrived, he was found to be bradycardic, apparently the heart rate in the 30s and then he was brought here. After arrival his heart rate has been in the 50s. The patient is on metoprolol 12.5 mg daily and also amiodarone. The reason for amiodarone is unclear. Patient has an underlying right bundle. He has been hospitalized with a similar episode in the past. He may have underlying atrial fibrillation and he is on apixaban 5 mg b.i.d. At the time of my evaluation, he is in the bed. Denies chest pain and when I asked him if he fell, he said he did and he knew he was falling and he was getting out of bed. He does remember the fall, but does not recall any loss of consciousness. He is blind and he is unsteady on his feet and this seems to be the main factor. I do not believe bradycardia played a major role. His heart rate was apparently low when EMS arrived but he is also on a combination of metoprolol and amiodarone which could contribute to both. Patient may have underlying sick sinus syndrome with underlying right bundle as well. Rhythm is sinus today. PAST MEDICAL HISTORY: 1. Remarkable for type 2 diabetes mellitus. 2. Hypertension. 3. Blindness, etiology unclear. 4. History of some renal dysfunction, but creatinine seems to be good. 5. He also has a history of previous cholecystectomy. He lives in [facility]. MEDICATIONS: At home include amiodarone 200 mg daily, vitamin supplements, lisinopril 10 mg daily, amlodipine 5 mg daily, apixaban 5 mg b.i.d., Lasix 20 mg daily, metoprolol 12.5 mg daily, Actos 15 mg daily, aspirin 81 mg daily. ALLERGIES: He is allergic to VICODIN. PHYSICAL EXAMINATION: Blood pressure is 130/80, pulse rate is about 60 per minute. There are no orthostatic changes. HEENT: Unremarkable. Fundus was not examined by me. Patient is blind. Neck is supple. There is no JVD. I do not hear a carotid bruit. There is no thyromegaly. Heart exam reveals S1, S2 heard normally. There is a soft systolic murmur audible at the base. Second heart sound is preserved. Lungs reveal decent air entry. Abdomen is soft, nontender. Lower extremities reveal diminished pulses. No significant edema. Central nervous system assessment was not performed but grossly patient is moving all 4 extremities. He does respond to commands. EKG revealed a sinus mechanism with a right bundle, sinus arrhythmia and nonspecific ST abnormality. LABORATORY DATA: Suggests that his creatinine is 1.9. His potassium on arrival was 5.8 but is down to 4.8. His hemoglobin and white count are acceptable and platelet count is normal. IMPRESSION: 1. History of multiple falls. 2. Probable underlying sick sinus syndrome with sinus and right bundle EKG. 3. Probable paroxysmal atrial fibrillation for which he was on amiodarone 200 mg daily, metoprolol tartrate 12.5 daily, and also apixaban. 4. History of diabetes. 5. Hypertension. 6. Hyperlipidemia. 7. Chronic kidney disease. 8. History of multiple falls with similar issues on previous admissions. RECOMMENDATIONS: I am recommending that we discontinue amiodarone and metoprolol. Check a TSH level. Unless he has significant bradycardia in the absence of rate lowering agents, we should not do any intervention in the form of pacemaker. I explained this to the patient. We will monitor him closely and see how he does. Echocardiogram from December revealed normal systolic function with mild gradient across aortic valve. Right-sided pressures were not quantified. Thank you very much for the consult indication. MMODL / IJN: [id number] /
[2018-05-12] MEDS: LACTATED RINGERS 1,000 ML IV SCH (03:30)
[2018-05-12 05:58] LABS: Glucose,Whole Blood 113 mg/dL (75-99)
[2018-05-12] MEDS: INSULIN ASPART 100 UNIT/ML 1 ML 10 ML VIAL SQ SCH ×4 (06:00→21:14)
[2018-05-12] MEDS: PANTOPRAZOLE 40 MG TABLET PO SCH (06:11)
[2018-05-12 07:56] LABS: Calcium 8.3 mg/dL (8.4-10.2); Potassium 4.4 mmol/L (3.5-5.1)
[2018-05-12] MEDS: CITALOPRAM HYDROBROMIDE 10 MG TAB PO SCH (08:31)
[2018-05-12] MEDS: PIOGLITAZONE 15 MG TAB PO SCH (08:31)
[2018-05-12] MEDS: amLODIPine 5 MG TAB PO SCH (08:31)
[2018-05-12] MEDS: LISINOPRIL 10 MG TAB PO SCH (08:31)
[2018-05-12] MEDS: ASPIRIN 81 MG PO SCH (08:31)
[2018-05-12] MEDS: APIXABAN 5 MG TAB PO SCH ×2 (08:31→20:59)
[2018-05-12] MEDS: ZINC OXIDE 20% OINT 28.4 GM TUBE TOPICAL SCH ×2 (08:31→20:59)
[2018-05-12] MEDS: BUDESONIDE 1 MG/2 ML NEBU INHALATION SCH ×2 (08:32→20:48)
[2018-05-12] MEDS: IPRATROPIUM-ALBUTEROL 3 ML NEB INHALATION SCH ×4 (08:32→20:48)
[2018-05-12 11:38] LABS: Glucose,Whole Blood 151 mg/dL (75-99)
[2018-05-12] MEDS: FERROUS SULFATE 325 MG TAB PO SCH (12:30)
[2018-05-12] MEDS: AMIODARONE 100 MG TAB PO SCH (12:30)
[2018-05-12] MEDS: METOPROLOL TARTRATE 12.5 MG TAB PO SCH (12:30)
[2018-05-12 17:07] LABS: Glucose,Whole Blood 132 mg/dL (75-99)
[2018-05-12] MEDS: ATORVASTATIN 10 MG TAB PO SCH (20:59)
[2018-05-12] MEDS: LORazepam 0.5 MG TAB PO PRN (20:59)
[2018-05-12] MEDS: SODIUM CHLORIDE 0.9% 1,000 ML IV SCH (20:59)
[2018-05-12 21:15] LABS: Glucose,Whole Blood 116 mg/dL (75-99)
--- NOTE | 2018-05-12 22:32 | PN ---
PROGRESS NOTE DATE OF SERVICE: 05/12/2018. PRESENTING COMPLAINT: Bradycardia. INTERVAL HISTORY: This patient is legally blind, presented with bradycardia heart rate down in the 30s. The patient's amiodarone and beta eduardo were held yesterday. This morning amiodarone and Lopressor resumed by Cardiology. The patient's heart rate is controlled. Otherwise patient is stable some. No other symptoms are present. REVIEW OF SYSTEMS: Done for constitutional, cardiovascular, GI, pulmonary; relevant findings as above. CURRENT MEDICATIONS: Reviewed. The patient is back on amiodarone and Lopressor. PHYSICAL EXAMINATION: Temperature 99.2, pulse 84, respiratory rate 18, blood pressure 116/71, pulse ox 97% on room air. GENERAL APPEARANCE: Lying in bed, awake. EYES: Pupils equal. Conjunctiva dirty. NECK: JVD unable to assess. Mass not palpable. Respiratory effort normal. LUNGS: Decreased breath sounds. CARDIOVASCULAR: 1st and 2nd heart sounds. No edema. ABDOMEN: Soft, nontender. Liver and spleen not palpable. PSYCHIATRY: Awake, answering questions appropriately. NEUROLOGIC: Poor eyesight. Moving all 4 limbs. Some weakness on the right side. INVESTIGATIONS: Potassium 4.4, BUN 33, creatinine 1.64. ASSESSMENT: 1. Significant bradycardia, now much improved. The patient has resumed amiodarone and beta eduardo per Cardiology. 2. 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 3. Chronic obstructive pulmonary disease in an ex-smoker. 4. Diabetes mellitus type 2 on oral hypoglycemic. 5. Hyperlipidemia. 6. Essential hypertension. 7. Chronic T12 compression fracture. 8. Urine and bowel incontinence. 9. Chronic medical debility. 10.Legally blind. Patient can only perceive light. 11.Hypertensive heart disease. 12.Chronic medical debility. Patient needs further assistance for transfer. 13.Renal failure, acute versus chronic, being assessed. 14.Hyperkalemia from renal failure, improved. Will give patient some more fluids overnight and repeat renal function. MMODL / IJN: [id number] /
[2018-05-13 06:21] LABS: Glucose,Whole Blood 130 mg/dL (75-99)
[2018-05-13] MEDS: INSULIN ASPART 100 UNIT/ML 1 ML 10 ML VIAL SQ SCH ×4 (06:24→21:20)
[2018-05-13] MEDS: PANTOPRAZOLE 40 MG TABLET PO SCH (06:28)
[2018-05-13] MEDS: SODIUM CHLORIDE 0.9% 1,000 ML IV SCH ×2 (06:28→18:20)
--- NOTE | 2018-05-13 07:22 | PN ---
PROGRESS NOTE Mr. Barajas was seen by me on May 12, but I am dictating the note on the since I forgot to do the dictation. He was admitted to the hospital with having had falls, which were being unsteady on his feet and falling. This patient also cannot see from both his eyes. However, he was in a second-degree heart block with a right bundle on a high dose of amiodarone. On the morning of May 12, he is back in a sinus rhythm with a short DE right bundle without any issues. Blood pressure control is good. I am recommending that we resume the amiodarone at a lower dose of 100 mg and Lopressor at 12.5 mg every morning. He has paroxysmal atrial fibrillation. He is on anticoagulation and amiodarone and beta eduardo. We will therefore reduce the dose of amiodarone and Lopressor. He is doing well otherwise. He does not have any chest pain, shortness of breath, or palpitations. Blood pressure is 120/70, pulse rate is 74 per minute. There is JVD of 1 cm. No carotid bruit. S1, S2 with a short systolic murmur is audible. Lungs are clear. Abdomen and lower extremity exam unchanged. Plan would be to possibly discharged the patient on this combination whenever it is okay with the admitting doctor. This gentleman also had hyperkalemia when he came in and this would have contributed to his bradycardia and the hyperkalemia has now resolved and I have adjusted the medications accordingly. MMMADINAL / IJN: [id number] /
[2018-05-13] MEDS: BUDESONIDE 1 MG/2 ML NEBU INHALATION SCH ×2 (08:09→19:55)
[2018-05-13] MEDS: IPRATROPIUM-ALBUTEROL 3 ML NEB INHALATION SCH ×4 (08:09→19:54)
[2018-05-13 08:21] LABS: Calcium 8.5 mg/dL (8.4-10.2); Potassium 4.4 mmol/L (3.5-5.1)
[2018-05-13] MEDS: CITALOPRAM HYDROBROMIDE 10 MG TAB PO SCH (09:19)
[2018-05-13] MEDS: LISINOPRIL 10 MG TAB PO SCH (09:19)
[2018-05-13] MEDS: FERROUS SULFATE 325 MG TAB PO SCH (09:19)
[2018-05-13] MEDS: ASPIRIN 81 MG PO SCH (09:19)
[2018-05-13] MEDS: METOPROLOL TARTRATE 12.5 MG TAB PO SCH (09:19)
[2018-05-13] MEDS: amLODIPine 5 MG TAB PO SCH (09:19)
[2018-05-13] MEDS: APIXABAN 5 MG TAB PO SCH ×2 (09:20→20:30)
[2018-05-13] MEDS: PIOGLITAZONE 15 MG TAB PO SCH (09:23)
[2018-05-13] MEDS: AMIODARONE 100 MG TAB PO SCH (09:23)
[2018-05-13 12:17] LABS: Glucose,Whole Blood 180 mg/dL (75-99)
[2018-05-13] MEDS: ZINC OXIDE 20% OINT 28.4 GM TUBE TOPICAL SCH ×2 (12:17→20:29)
--- NOTE | 2018-05-13 16:22 | DS ---
DISCHARGE SUMMARY DATE OF ADMISSION: 05/10/2018 DATE OF DISCHARGE: 05/13/2018 FINAL DIAGNOSES: 1. Bradycardia, possibly from hyperkalemia. 2. 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 3. Chronic obstructive pulmonary disease in an ex-smoker. 4. Diabetes mellitus, type 2, on oral hypoglycemic. 5. Hyperlipidemia. 6. Essential hypertension. 7. Chronic T2 compression fracture. 8. Urine and bowel incontinence. 9. Chronic medical debility. 10.Legally blind. Patient can only perceive light. 11.Hypertensive heart disease. 12.Chronic medical debility. Patient needs assistance for transfer. 13.Acute renal failure, likely prerenal, from Lasix. 14.Chronic kidney disease, stage III, from nephrosclerosis. 15.Hyperkalemia from acute renal failure. HOSPITAL COURSE: This patient presented with sliding out of the bed. There was no fracture. He was found to be bradycardic, felt to be from hyperkalemia. Dose of amiodarone was cut back. Patient's creatinine was 1.9 on arrival. It did drop down to 1.44 with hydration. Lasix was discontinued. Two-D echo from 2 months ago showed preserved LV with EF at 55% to 60%. Care was discussed with Dr. Shanika Adhikari today. PHYSICAL EXAMINATION: Afebrile. Pulse 94, respiration 16, blood pressure 101/66, pulse ox 100% on room air. LUNGS: Decreased breath sounds. CARDIOVASCULAR: First and second sounds normal. Patient is able to answer simple questions. INVESTIGATIONS: Potassium 4.8, BUN 44, creatinine 1.90. DISCHARGE MEDICATIONS: Lasix discontinued. 1. Aspirin 81 mg a day. 2. Tylenol Arthritis 650 mg q.6 p.r.n. 3. Protonix 40 mg a day. 4. Pulmicort 1 mg b.i.d. 5. Vitamin D3 2000 units p.o. daily. 6. Celexa 10 mg p.o. daily. 7. Iron 325 p.o. daily. 8. DuoNeb q.i.d. plus q.4 p.r.n. 9. Zestril 10 mg a day. 10.Zofran 4 mg q.8 p.r.n. 11.Norvasc 5 mg a day. 12.Zinc oxide barrier topically b.i.d. 13.Lactulose 10 grams p.o. b.i.d. p.r.n. 14.Milk of magnesia 2400 mg q.72 hours p.r.n. 15.Lac-Hydrin 12% topically b.i.d. p.r.n. 16.Eliquis 5 mg b.i.d. 17.Lipitor 10 mg at bedtime. 18.Insulin Lispro per protocol. 19.Melatonin 3 mg at bedtime p.r.n. 20.Lopressor 12.5 mg p.o. daily. 21.Actos 15 mg p.o. daily. 22.Amiodarone 100 mg p.o. daily. 23.Accu-Cheks daily. DISPOSITION: [facility]. CODE STATUS: FULL CODE. Follow up with Dr. Azul at [facility]. KASHMIR / LIO: [id number] /
[2018-05-13 16:51] LABS: Glucose,Whole Blood 83 mg/dL (75-99)
--- NOTE | 2018-05-13 20:04 | PN ---
PROGRESS NOTE DATE OF SERVICE: 05/13/2018 PRESENTING COMPLAINT: Bradycardia. INTERVAL HISTORY: Patient is legally blind with bradycardia, now felt to be from hyperkalemia. The patient is currently on amiodarone and Lopressor was added. Tolerating a diet. The patient is supposed to go to [facility] today but because of insurance reasons, could not go. Lying in bed. Tolerating his diet. REVIEW OF SYSTEMS: Done for constitutional, cardiovascular, GI, pulmonary; relevant findings as above. CURRENT MEDICATIONS: Reviewed and include amiodarone is 100 mg. PHYSICAL EXAMINATION: VITAL SIGNS: Temperature 97.9, pulse 92, respiration 16, blood pressure 150/74, pulse ox 99 percent on room air. GENERAL APPEARANCE: Lying in bed, awake. EYES: Conjunctivae dirty, hazy cornea. NECK: JVD unable to assess. Mass not palpable. RESPIRATORY: Effort normal. LUNGS: Decreased breath sounds. CARDIOVASCULAR: 1st and 2nd sounds normal. No edema. ABDOMEN: Soft, nontender. Liver and spleen not palpable. PSYCHIATRY: Patient does answer simple questions. INVESTIGATIONS: Potassium 4.4, BUN 23, creatinine 1.44. ASSESSMENT: 1. Significant bradycardia likely from hyperkalemia with improvement. 2. 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 3. Chronic obstructive pulmonary disease in an ex-smoker. 4. Diabetes mellitus type 2 on oral hypoglycemics. 5. Hyperlipidemia. 6. Essential hypertension. 7. Chronic T12 compression fracture. 8. Urine bowel incontinence. 9. Chronic medical debility. 10.Legally blind patient can only perceive light. 11.Hypertensive heart disease. 12.Chronic medical debility. Patient needs further assistance for transfer. 13.Acute renal failure probably prerenal from Lasix. 14.Chronic kidney disease stage 3 from nephrosclerosis. PLAN: Continue current medication and treatment plan. We will let the patient be discharged when insurance issues are sorted out. MMODL / IJN: [id number] /
--- NOTE | 2018-05-13 20:10 | PN ---
PROGRESS NOTE HISTORY: This is a gentleman with a history of sinus mechanism right bundle with bradycardia on higher dose of amiodarone. Also under the influence of hyperkalemia. However, he is doing much better today. He is asymptomatic. The EKG is good. S1 and S2 heard normally. Short systolic murmur noted. Lungs are clear. Abdominal and lower exams unchanged. Patient has history of multiple falls. He is blind in both his eyes. However, from a cardiac standpoint on the current dose of amiodarone 100 mg daily and 12.5 mg of Lopressor, he can be discharged. The same medical regimen is advised. His potassium level is good. MMODL / IJN: [id number] /
[2018-05-13] MEDS: ATORVASTATIN 10 MG TAB PO SCH (20:30)
[2018-05-13 20:45] LABS: Glucose,Whole Blood 131 mg/dL (75-99)
[2018-05-14] MEDS: SODIUM CHLORIDE 0.9% 1,000 ML IV SCH ×2 (01:45→08:32)
[2018-05-14 06:08] LABS: Glucose,Whole Blood 89 mg/dL (75-99)
[2018-05-14] MEDS: INSULIN ASPART 100 UNIT/ML 1 ML 10 ML VIAL SQ SCH ×2 (06:08→15:35)
[2018-05-14] MEDS: PANTOPRAZOLE 40 MG TABLET PO SCH (06:14)
[2018-05-14 06:39] VITALS: BP 145/77; RESP 16; TEMP 98.7
[2018-05-14] MEDS: CITALOPRAM HYDROBROMIDE 10 MG TAB PO SCH (08:31)
[2018-05-14] MEDS: AMIODARONE 100 MG TAB PO SCH (08:31)
[2018-05-14] MEDS: PIOGLITAZONE 15 MG TAB PO SCH (08:31)
[2018-05-14] MEDS: FERROUS SULFATE 325 MG TAB PO SCH (08:31)
[2018-05-14] MEDS: LISINOPRIL 10 MG TAB PO SCH (08:31)
[2018-05-14] MEDS: APIXABAN 5 MG TAB PO SCH (08:31)
[2018-05-14] MEDS: METOPROLOL TARTRATE 12.5 MG TAB PO SCH (08:31)
[2018-05-14] MEDS: ASPIRIN 81 MG PO SCH (08:31)
[2018-05-14] MEDS: amLODIPine 5 MG TAB PO SCH (08:31)
[2018-05-14] MEDS: ZINC OXIDE 20% OINT 28.4 GM TUBE TOPICAL SCH (08:32)
[2018-05-14] MEDS: IPRATROPIUM-ALBUTEROL 3 ML NEB INHALATION SCH ×3 (08:37→16:16)
[2018-05-14] MEDS: BUDESONIDE 1 MG/2 ML NEBU INHALATION SCH (08:37)
[2018-05-14 08:39] LABS: Calcium 8.4 mg/dL (8.4-10.2); Potassium 4.2 mmol/L (3.5-5.1)
[2018-05-14 11:53] LABS: Glucose,Whole Blood 167 mg/dL (75-99)
--- NOTE | 2018-05-14 14:34 | P.PN ---
Subjective Progress Note Date: 05/14/18 This is a 72-year-old gentleman who resides at [facility]. He has a history of COPD, hypertension, hyperlipidemia, blindness, admitted to the hospital after experiencing a fall, he was found to be bradycardic, heart rate in the 30s and was brought here to the hospital. Since the patient has been here his heart rate is been primarily in the 50s, she was noted to have a significantly elevated potassium on admission here 2. Overall patient is doing significantly better today, EKG is good, remaining in normal sinus rhythm. Currently on 100 mg of amiodarone, and the Lopressor. From cardiology's perspective he may be discharged once cleared by primary. Objective - Vital Signs Vital signs: Vital Signs Temp 98.7 F 05/14/18 06:38 Pulse 90 05/14/18 11:46 Resp 16 05/14/18 06:38 BP 145/77 05/14/18 06:38 Pulse Ox 94 L 05/14/18 06:38 Intake & Output 05/13/18 05/14/18 05/14/18 18:59 06:59 18:59 Intake Total 684 1620 352 Output Total 1201 1 Balance 684 419 351 Intake: Intake, IV Titration 1250 Amount Sodium Chloride 0.9% 1, 1250 000 ml @ 100 mls/hr IV . Q10H [facility] Rx#:[id number] Oral 684 370 352 Output: Urine 1200 1 Urine/Stool Mix 1 Other: Voiding Method Diaper Diaper Incontinent Incontinent # Voids 1 2 # Bowel Movements 2 1 - Exam PHYSICAL EXAMINATION: GENERAL: 72-year-old gentleman in no acute distress at the time of my examination HEENT: Head is atraumatic, normocephalic. Pupils equal, round. Sclera anicteric. Conjunctiva are clear. Bilateral eye blindness . Mucous membranes of the mouth are moist. Neck is supple. There is no elevated jugular venous pressure. No carotid bruit is heard. HEART EXAMINATION: Heart S1 S2 1 systolic murmur is heard CHEST EXAMINATION: Lungs are clear to auscultation and precussion. No chest wall tenderness is noted on palpation or with deep breathing. ABDOMEN: Soft, nontender. Bowel sounds are heard. No organomegaly noted. EXTREMITIES: 2+ peripheral pulses with no evidence of peripheral edema and no calf tenderness noted. NEUROLOGIC patient is awake, alert and oriented ?-3. . - Labs CBC & Chem 7: 05/10/18 18:29 05/14/18 07:46 Labs: Abnormal Lab Results - Last 24 Hours (Table) 05/13/18 05/14/18 05/14/18 Range/Units 20:43 07:46 11:49 Chloride 110 H (98-107) mmol/L Creatinine 1.35 H (0.66-1.25) mg/dL POC Glucose (mg/dL) 131 H 167 H (75-99) mg/dL Assessment and Plan Plan: Assessment and plan #1 history of multiple falls #2 paroxysmal atrial fibrillation #3 diabetes #4 hypertension #5 hyperlipidemia #6 chronic kidney disease Plan From cardiology's perspective, patient may be able to be discharged once cleared by primary. We will continue current dose of amiodarone and beta eduardo. DNP note has been reviewed, I agree with a documented findings and plan of care. Patient was seen and examined.
[2018-05-14 16:54] VITALS: PULSE 79
--- NOTE | 2018-05-15 14:33 | DS ---
DISCHARGE SUMMARY DATE OF ADMISSION: 05/10/2018. DATE OF DISCHARGE: 05/14/2018 Please refer for more details from my discharge note from yesterday. The patient otherwise is doing well, tolerating a diet. Lying in bed. PHYSICAL EXAMINATION: Temperature 98.7, pulse 90, respiration 16, blood pressure 145/77, pulse ox 94% on room air. LUNGS: Decreased breath sounds. ABDOMEN: Soft, nontender. Care was discussed with the patient. Patient is stable to go back to the [facility]. MMODL / IJN: [id number] /
== END 2018-05-14 17:11 | DRG 309 ==
LOC: EC 18:13 → 3SCARD 19:58
PROVIDERS: ADMIT Hospitalist; ATTEND Hospitalist
DX: R00.1 Bradycardia, unspecified (principal); I69.351 Hemiplegia and hemiparesis following cerebral infarction affecting right dominant side; M48.54XA Collapsed vertebra, not elsewhere classified, thoracic region, initial encounter for fracture; N17.9 Acute kidney failure, unspecified; E78.5 Hyperlipidemia, unspecified; E11.22 Type 2 diabetes mellitus with diabetic chronic kidney disease; D72.829 Elevated white blood cell count, unspecified; E86.0 Dehydration; E87.5 Hyperkalemia; H40.9 Unspecified glaucoma; H54.8 Legal blindness, as defined in USA; I13.10 Hypertensive heart and chronic kidney disease without heart failure, with stage 1 through stage 4 chronic kidney disease, or unspecified chronic kidney disease; I44.1 Atrioventricular block, second degree; I48.0 Paroxysmal atrial fibrillation; J44.9 Chronic obstructive pulmonary disease, unspecified; N18.3 Chronic kidney disease, stage 3 (moderate); W06.XXXA Fall from bed, initial encounter; Z91.81 History of falling; Y92.122 Bedroom in nursing home as the place of occurrence of the external cause; Z79.01 Long term (current) use of anticoagulants; Z79.82 Long term (current) use of aspirin; Z79.4 Long term (current) use of insulin; Z79.52 Long term (current) use of systemic steroids; Z79.899 Other long term (current) drug therapy; Z83.3 Family history of diabetes mellitus; Z87.891 Personal history of nicotine dependence; Z90.49 Acquired absence of other specified parts of digestive tract; Z74.01 Bed confinement status; R26.81 Unsteadiness on feet; I45.10 Unspecified right bundle-branch block; T50.1X5A Adverse effect of loop [high-ceiling] diuretics, initial encounter; Z88.5 Allergy status to narcotic agent
CPT/HCPCS: 36415; 70450; 71045; 72125; 80048; 80053; 82550; 82553; 83036; 83735; 84443; 84484; 85025; 85610; 85730; 93005; 94640; 96374; 96375; 99285

== ENCOUNTER 2018-06-01 00:14 | Inpatient (IN) | payer MEDICARE, OTHER ==
--- NOTE | 2018-06-01 01:15 | ED ---
General Adult HPI - General Chief complaint: Fall Stated complaint: SANCHO Time Seen by Provider: 06/01/18 00:16 Source: patient, EMS Mode of arrival: EMS Limitations: altered mental status, physical limitation - History of Present Illness Initial comments: Denis is a 72-year-old male with extensive past medical history who is brought to the ED today via EMS for evaluation of cough, hypoxia and a possible fall. Per the patient he rolled out of bed. Caregivers at the facility reports they found him laying on the floor next to his bed. He seemed to have increased work of breathing. He had an oxygen saturation in the mid 80s. They immediately called 911. EMS found him sitting in his bed with an oxygen saturation of only 88%. He is given a nebulizer treatment his oxygen saturation improved to 95%. He is subsequently transferred to the ER. Patient reports he feels generalized malaise he's had a cough and he doesn't feel her. He denies any chest pain or palpitations. He reports he rolled out of bed and didn't have any injuries. - Related Data Home Medications Medication Instructions Recorded Confirmed Aspirin 81 mg PO DAILY 08/11/17 05/10/18 Acetaminophen [Tylenol Arthritis] 650 mg PO Q6H PRN 08/20/17 05/10/18 Pantoprazole [Protonix] 40 mg PO DAILY 08/20/17 05/10/18 Budesonide [Pulmicort] 1 mg INHALATION RT-BID 01/08/18 05/10/18 Cholecalciferol (Vitamin D3) 2,000 unit PO DAILY@0900 01/08/18 05/10/18 [Vitamin D3] Citalopram Hydrobromide [CeleXA] 10 mg PO DAILY 01/08/18 05/10/18 Ferrous Sulfate [Iron (65 MG 325 mg PO DAILY 01/08/18 05/10/18 Elemental)] Ipratropium-Albuterol Nebulize 3 ml INHALATION RT-Q4H PRN 02/04/18 05/10/18 [Duoneb 0.5 mg-3 mg/3 ml Soln] Ipratropium-Albuterol Nebulize 3 ml INHALATION RT-QID 02/04/18 05/10/18 [Duoneb 0.5 mg-3 mg/3 ml Soln] Lisinopril [Zestril] 10 mg PO DAILY 02/04/18 05/10/18 Ondansetron [Zofran] 4 mg PO Q8H PRN 02/04/18 05/10/18 amLODIPine [Norvasc] 5 mg PO DAILY 02/04/18 05/10/18 Dimethicone/Zinc Oxide [Inzo Zinc 1 applic TOPICAL BID 04/17/18 05/10/18 Oxide Barrier Cream] Dimethicone/Zinc Oxide [Inzo Zinc 1 applic TOPICAL DAILY PRN 04/17/18 05/10/18 Oxide Barrier Cream] Lactulose 10 gm PO BID PRN 04/17/18 05/10/18 Magnesium Hydroxide [Milk of 2,400 mg PO Q72H PRN 04/17/18 05/10/18 Magnesia] Ammonium Lactate Lotion 1 applic TOPICAL BID PRN 05/10/18 05/10/18 [Lac-Hydrin 12% Lotion] Apixaban [Eliquis] 5 mg PO BID 05/10/18 05/10/18 Atorvastatin Calcium [Lipitor] 10 mg PO HS 05/10/18 05/10/18 Insulin Lispro [humaLOG Kwikpen] See Protocol SQ AC-TID 05/10/18 05/10/18 Melatonin 3 mg PO HS PRN 05/10/18 05/10/18 Metoprolol Tartrate [Lopressor] 12.5 mg PO DAILY 05/10/18 05/10/18 Pioglitazone HCl [Actos] 15 mg PO DAILY 05/10/18 05/10/18 Previous Rx's Medication Instructions Recorded Amiodarone [Cordarone] 100 mg PO DAILY tab 05/13/18 Allergies Allergy/AdvReac Type Severity Reaction Status Date / Time hydrocodone bitartrate AdvReac Nausea Verified 05/10/18 18:48 [From Vicodin] Review of Systems ROS Statement: Those systems with pertinent positive or pertinent negative responses have been documented in the HPI. ROS Other: All systems not noted in ROS Statement are negative. 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 DDD, hx of T12 compression fx, spondylothesis, urinary/bowel incontinence, bed bound w/ assist to chair per [facility]. A+O to person/place = baseline, cholecystitis, anemia, hx of respiratory failure w/ hypoxia. History of Any Multi-Drug Resistant Organisms: None Reported Past Surgical History: Cholecystectomy Additional Past Surgical History / Comment(s): Laparoscopic cholecystectomy Past Anesthesia/Blood Transfusion Reactions: No Reported Reaction Past Psychological History: Depression Smoking Status: Former smoker Past Alcohol Use History: None Reported Past Drug Use History: None Reported - Past Family History Father Family Medical History: Diabetes Mellitus Mother Family Medical History: Dementia, Diabetes Mellitus Brother(s) Family Medical History: Unable to Obtain General Exam - General Exam Comments Initial Comments: GENERAL: Chronically ill-appearing, debilitated, appears older than stated age HENT: Normocephalic, Atraumatic. EYES: Bilateral cataracts No scleral icterus PULMONARY: Wheezing in all lung [place] Wet cough however patient doesn't have the strength to expectorate CARDIOVASCULAR: Tachycardic ABDOMEN: Soft and nontender with normal bowel sounds. SKIN: Chronic changes NEUROLOGIC: Alert and oriented to person and place MUSCULOSKELETAL: Gen. debility LYMPHATICS: No significant lymphadenopathy is noted PSYCHIATRIC: Normal psychiatric evaluation. Limitations: no limitations Limitations: altered mental status, physical limitation Course Vital Signs 06/01/18 06/01/18 06/01/18 00:16 01:19 02:00 Temperature 98.5 F Pulse Rate 101 H 93 Respiratory 22 17 Rate Blood Pressure 150/69 150/69 151/77 O2 Sat by Pulse 100 97 Oximetry 06/01/18 02:15 Temperature Pulse Rate Respiratory 20 Rate Blood Pressure O2 Sat by Pulse 98 Oximetry EKG Findings - EKG Comments: EKG Findings:: EKG obtained at 1:19 AM, rate is 99 rhythm is sinus, there is a right bundle branch block, TX is prolonged at 202, QRS 158, QTC 523. There are no acute ST elevations or depressions no evidence of acute ischemia or infarction. Medical Decision Making - Medical Decision Making The patient was seen and evaluated, history was obtained from patient and EMS and review of medical record This is a chronically ill gentleman who appears to rolled out of bed was found to be hypoxic Patient is tachycardic, coughing with productive cough that he doesn't have the strength to fully expect her rate all of the pulmonary secretions Sepsis workup as well as influenza swabs were ordered Chest x-ray suggestive of bilateral pneumonia, patient has had recent hospital admissions as well as living in a prison we will treat for healthcare associated pneumonia with the bank and Zosyn. A sign at this time I will plan to admit the patient for healthcare acquired pneumonia. - Lab Data Result diagrams: 06/01/18 01:35 06/01/18 01:35 Lab Results 06/01/18 06/01/18 06/01/18 Range/Units 01:35 01:35 01:35 WBC 6.8 (3.8-10.6) k/uL RBC 3.46 L (4.30-5.90) m/uL Hgb 10.3 L (13.0-17.5) gm/dL Hct 32.3 L (39.0-53.0) % MCV 93.3 (80.0-100.0) fL MCH 29.7 (25.0-35.0) pg MCHC 31.8 (31.0-37.0) g/dL RDW 12.9 (11.5-15.5) % Plt Count 285 (150-450) k/uL Neutrophils % 81 % Lymphocytes % 12 % Monocytes % 4 % Eosinophils % 1 % Basophils % 0 % Neutrophils # 5.5 (1.3-7.7) k/uL Lymphocytes # 0.8 L (1.0-4.8) k/uL Monocytes # 0.3 (0-1.0) k/uL Eosinophils # 0.1 (0-0.7) k/uL Basophils # 0.0 (0-0.2) k/uL PT (9.0-12.0) sec INR (<1.2) APTT (22.0-30.0) sec Sodium 136 L (137-145) mmol/L Potassium 4.5 (3.5-5.1) mmol/L Chloride 105 (98-107) mmol/L Carbon Dioxide 24 (22-30) mmol/L Anion Gap 7 mmol/L BUN 29 H (9-20) mg/dL Creatinine 1.49 H (0.66-1.25) mg/dL Est GFR (CKD-EPI)AfAm 53 (>60 ml/min/1.73 sqM) Est GFR (CKD-EPI)NonAf 46 (>60 ml/min/1.73 sqM) Glucose 178 H (74-99) mg/dL Plasma Lactic Acid Daniel (0.7-2.0) mmol/L Calcium 8.4 (8.4-10.2) mg/dL Total Bilirubin 0.7 (0.2-1.3) mg/dL AST 21 (17-59) U/L ALT 26 (21-72) U/L Alkaline Phosphatase 88 (38-126) U/L Total Creatine Kinase 60 (55-170) U/L CK-MB (CK-2) 0.9 (0.0-2.4) ng/mL CK-MB (CK-2) Rel Index 1.5 Troponin I 0.024 (0.000-0.034) ng/mL Total Protein 6.5 (6.3-8.2) g/dL Albumin 3.5 (3.5-5.0) g/dL Influenza Type A RNA (Not Detectd) Influenza Type B (PCR) (Not Detectd) 06/01/18 06/01/18 06/01/18 Range/Units 01:35 01:35 01:35 WBC (3.8-10.6) k/uL RBC (4.30-5.90) m/uL Hgb (13.0-17.5) gm/dL Hct (39.0-53.0) % MCV (80.0-100.0) fL MCH (25.0-35.0) pg MCHC (31.0-37.0) g/dL RDW (11.5-15.5) % Plt Count (150-450) k/uL Neutrophils % % Lymphocytes % % Monocytes % % Eosinophils % % Basophils % % Neutrophils # (1.3-7.7) k/uL Lymphocytes # (1.0-4.8) k/uL Monocytes # (0-1.0) k/uL Eosinophils # (0-0.7) k/uL Basophils # (0-0.2) k/uL PT 11.3 (9.0-12.0) sec INR 1.1 (<1.2) APTT 27.1 (22.0-30.0) sec Sodium (137-145) mmol/L Potassium (3.5-5.1) mmol/L Chloride (98-107) mmol/L Carbon Dioxide (22-30) mmol/L Anion Gap mmol/L BUN (9-20) mg/dL Creatinine (0.66-1.25) mg/dL Est GFR (CKD-EPI)AfAm (>60 ml/min/1.73 sqM) Est GFR (CKD-EPI)NonAf (>60 ml/min/1.73 sqM) Glucose (74-99) mg/dL Plasma Lactic Acid Daniel 1.2 (0.7-2.0) mmol/L Calcium (8.4-10.2) mg/dL Total Bilirubin (0.2-1.3) mg/dL AST (17-59) U/L ALT (21-72) U/L Alkaline Phosphatase (38-126) U/L Total Creatine Kinase (55-170) U/L CK-MB (CK-2) (0.0-2.4) ng/mL CK-MB (CK-2) Rel Index Troponin I (0.000-0.034) ng/mL Total Protein (6.3-8.2) g/dL Albumin (3.5-5.0) g/dL Influenza Type A RNA Not Detected (Not Detectd) Influenza Type B (PCR) Not Detected (Not Detectd) Disposition Clinical Impression: HCAP (healthcare-associated pneumonia), COPD exacerbation Disposition: ADMITTED IP TO THIS [facility] Referrals: Leonides Azul MD [Primary Care Provider] - 1-2 days
[2018-06-01 01:51] LABS: Basophils % (A) 0 %; Eosinophils # (A) 0.1 k/uL (0-0.7); Eosinophils % (A) 1 %; HCT 32.3 % (39.0-53.0); HGB 10.3 gm/dL (13.0-17.5); Lymphocytes # (A) 0.8 k/uL (1.0-4.8); Lymphocytes % (A) 12 %; MCH 29.7 pg (25.0-35.0); MCHC 31.8 g/dL (31.0-37.0); MCV 93.3 fL (80.0-100.0); Mean Platelet Volume 7.2; Monocytes # (A) 0.3 k/uL (0-1.0); Monocytes % (A) 4 %; Neutrophils # (A) 5.5 k/uL (1.3-7.7); Neutrophils % (A) 81 %; Platelet Count 285 k/uL (150-450); RBC 3.46 m/uL (4.30-5.90); RDW 12.9 % (11.5-15.5); WBC 6.8 k/uL (3.8-10.6)
[2018-06-01] MEDS: SODIUM CHLORIDE 0.9% 500 ML 500 ML IV SCH ×2 (01:56→02:43)
--- NOTE | 2018-06-01 01:58 | XR ---
EXAMINATION TYPE: XR chest 2V DATE OF EXAM: 06/01/2018 COMPARISON: NONE HISTORY: Fall. Difficulty breathing TECHNIQUE: Frontal and lateral views of the chest are obtained. FINDINGS: There are bilateral patchy pulmonary infiltrates. There is slight blunting of the costophr enic angles. There is mild pulmonary congestion. There is old left-sided healed rib fracture. IMPRESSION: There are new bilateral pulmonary infiltrates compared to old exam. Mild heart failure i s possible.
[2018-06-01 02:02] LABS: INR 1.1 (<1.2); Partial Thromboplastin Time 27.1 sec (22.0-30.0); Prothrombin Time 11.3 sec (9.0-12.0)
[2018-06-01 02:12] LABS: Albumin 3.5 g/dL (3.5-5.0); Calcium 8.4 mg/dL (8.4-10.2); Potassium 4.5 mmol/L (3.5-5.1); Total Bilirubin 0.7 mg/dL (0.2-1.3); Total Protein 6.5 g/dL (6.3-8.2)
[2018-06-01 02:23] LABS: Creatine Kinase MB 0.9 ng/mL (0.0-2.4); Troponin I 0.024 ng/mL (0.000-0.034)
[2018-06-01] MEDS ORDERED: VANCOMYCIN IV PER PHARMACY 1 EACH MISC MISCELLANE PRN (02:24)
[2018-06-01] MEDS ORDERED: VANCOMYCIN 1,250 MG in SODIUM CHLORIDE 0.9% 250 ML IVPB STA (02:28)
[2018-06-01] MEDS ORDERED: PIPERACILLIN-TAZOBACTAM 3.375 GM in SODIUM CHLORIDE 0.9% 100 ML IVPB SCH (02:30)
[2018-06-01] MEDS ORDERED: IPRATROPIUM-ALBUTEROL 3 ML NEB INHALATION PRN (02:51)
[2018-06-01] MEDS ORDERED: LACTULOSE 20 GM/30 ML CUP PO PRN (02:52)
[2018-06-01] MEDS: methylPREDNISolone SOD SUCCI 125 MG/2 ML VIAL IV SCH ×4 (03:16→20:37)
[2018-06-01 05:40] VITALS: BMI 23.3
[2018-06-01 07:43] LABS: Glucose,Whole Blood 239 mg/dL (75-99)
[2018-06-01] MEDS: INSULIN ASPART 100 UNIT/ML 1 ML 10 ML VIAL SQ SCH ×4 (11:19→20:37)
[2018-06-01] MEDS: CITALOPRAM HYDROBROMIDE 10 MG TAB PO SCH (11:24)
[2018-06-01] MEDS: ASPIRIN 81 MG PO SCH (11:24)
[2018-06-01] MEDS: APIXABAN 5 MG TAB PO SCH ×2 (11:24→20:36)
[2018-06-01] MEDS: AMIODARONE 100 MG TAB PO SCH (11:24)
[2018-06-01] MEDS: ZINC OXIDE TOPICAL SCH ×2 (11:25→20:37)
[2018-06-01] MEDS: DIMETHICONE TOPICAL SCH ×2 (11:25→20:37)
[2018-06-01] MEDS: amLODIPine 5 MG TAB PO SCH (11:31)
[2018-06-01] MEDS: METOPROLOL TARTRATE 12.5 MG TAB PO SCH (11:34)
[2018-06-01] MEDS: PIPERACILLIN-TAZOBACTAM 3.375 GM in SODIUM CHLORIDE 0.9% 100 ML IVPB SCH ×2 (11:34→20:36)
[2018-06-01] MEDS: IPRATROPIUM-ALBUTEROL 3 ML NEB INHALATION PRN ×3 (11:51→21:15)
[2018-06-01 12:09] LABS: Glucose,Whole Blood 225 mg/dL (75-99)
[2018-06-01 12:59] LABS: Hemoglobin A1C 6.4 % (4.0-6.0)
[2018-06-01 17:57] LABS: Glucose,Whole Blood 166 mg/dL (75-99)
[2018-06-01 19:37] LABS: Glucose,Whole Blood 178 mg/dL (75-99)
[2018-06-01 21:12] LABS: Appearance,Urine Clear (Clear); Bilirubin,Urine Negative (Negative); Blood,Urine Negative (Negative); Color,Urine Yellow; Glucose,Urine (UA) 1+ (Negative); Ketones,Urine Negative (Negative); Leukocyte Esterase,Urine Negative (Negative); Mucus,Urine Rare /hpf; Nitrite,Urine Negative (Negative); Protein,Urine 1+ (Negative); RBC,Urine 1 /hpf (0-5); Specific Gravity,Urine 1.013 (1.001-1.035); Squamous Epithelial Cell,Urine <1 /hpf (0-4); Urobilinogen,Urine <2.0 mg/dL (<2.0); WBC,Urine <1 /hpf (0-5)
--- NOTE | 2018-06-01 23:09 | P.HPIM ---
History of Present Illness This is a pleasant 72 years old male with past medical history of chronic atrial fibrillation and, stroke, diabetes mellitus, hypertension, syncope, urine or bowel incontinence, fall, he is legally blind. Presents because of dyspnea of 2 days' duration associated with dry cough and generalized weakness. Patient denies chest pain except when he coughs. On admission he has chest x- ray which shows new bilateral pulmonary infiltrates which are new with mild heart failure. He has no fever or leukocytosis. His creatinine is 1.4, baseline is 1.1 -1.9. Sugar in the high side is uncontrolled. Influenza was negative. In the emergency room he got 1 dose of vancomycin and he was started on Zosyn. Maxwell of 2 months ago showing ejection fraction 55-60% with moderate LVH. Review of Systems CONSTITUTIONAL: No fever, no malaise, no fatigue. HEENT: No recent visual problems or hearing problems. Denied any sore throat. CARDIOVASCULAR: No orthopnea, PND, no palpitations, no syncope. PULMONARY: No shortness of breath, no cough, no hemoptysis. GASTROINTESTINAL: No diarrhea, no nausea, no vomiting, no abdominal pain. Normoactive bowel sounds. NEUROLOGICAL: No headaches, no weakness, no numbness. HEMATOLOGICAL: Denies any bleeding or petechiae. GENITOURINARY: Denies any burning micturition, frequency, or urgency. MUSCULOSKELETAL/RHEUMATOLOGICAL: Denies any joint pain, swelling, or any muscle pain. ENDOCRINE: Denies any polyuria or polydipsia. 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 DDD, hx of T12 compression fx, spondylothesis, urinary/bowel incontinence, bed bound w/ assist to chair per [facility]. A+O to person/place = baseline, cholecystitis, anemia, hx of respiratory failure w/ hypoxia. History of Any Multi-Drug Resistant Organisms: None Reported Past Surgical History: Cholecystectomy Additional Past Surgical History / Comment(s): Laparoscopic cholecystectomy Past Anesthesia/Blood Transfusion Reactions: No Reported Reaction Past Psychological History: Depression Additional Psychological History / Comment(s): Pt. resides at [facility]. He is legally blind bilaterally. Smoking Status: Former smoker Past Alcohol Use History: None Reported Additional Past Alcohol Use History / Comment(s): Started smoking about 1965 and quit in 2012.smoked a pipe. Past Drug Use History: None Reported - Past Family History Father Family Medical History: Diabetes Mellitus Mother Family Medical History: Dementia, Diabetes Mellitus Brother(s) Family Medical History: Unable to Obtain Medications and Allergies Home Medications Medication Instructions Recorded Confirmed Type Aspirin 81 mg PO DAILY 08/11/17 06/01/18 History Acetaminophen [Tylenol Arthritis] 650 mg PO Q6H PRN 08/20/17 06/01/18 History Pantoprazole [Protonix] 40 mg PO DAILY 08/20/17 06/01/18 History Budesonide [Pulmicort] 1 mg INHALATION RT-BID 01/08/18 06/01/18 History Cholecalciferol (Vitamin D3) 2,000 unit PO DAILY@0900 01/08/18 06/01/18 History [Vitamin D3] Ferrous Sulfate [Iron (65 MG 325 mg PO DAILY 01/08/18 06/01/18 History Elemental)] Ipratropium-Albuterol Nebulize 3 ml INHALATION RT-Q4H PRN 02/04/18 06/01/18 History [Duoneb 0.5 mg-3 mg/3 ml Soln] Ipratropium-Albuterol Nebulize 3 ml INHALATION RT-QID 02/04/18 06/01/18 History [Duoneb 0.5 mg-3 mg/3 ml Soln] Lisinopril [Zestril] 10 mg PO DAILY 02/04/18 06/01/18 History Ondansetron [Zofran] 4 mg PO Q8H PRN 02/04/18 06/01/18 History amLODIPine [Norvasc] 5 mg PO DAILY 02/04/18 06/01/18 History Dimethicone/Zinc Oxide [Inzo Zinc 1 applic TOPICAL BID 04/17/18 06/01/18 History Oxide Barrier Cream] Dimethicone/Zinc Oxide [Inzo Zinc 1 applic TOPICAL DAILY PRN 04/17/18 06/01/18 History Oxide Barrier Cream] Lactulose 10 gm PO BID PRN 04/17/18 06/01/18 History Magnesium Hydroxide [Milk of 2,400 mg PO Q72H PRN 04/17/18 06/01/18 History Magnesia] Ammonium Lactate Lotion 1 applic TOPICAL BID PRN 05/10/18 06/01/18 History [Lac-Hydrin 12% Lotion] Apixaban [Eliquis] 5 mg PO BID 05/10/18 06/01/18 History Atorvastatin Calcium [Lipitor] 10 mg PO HS 05/10/18 06/01/18 History Insulin Lispro [humaLOG Kwikpen] See Protocol SQ AC-TID 05/10/18 06/01/18 History Melatonin 3 mg PO HS PRN 05/10/18 06/01/18 History Metoprolol Tartrate [Lopressor] 12.5 mg PO DAILY 05/10/18 06/01/18 History Pioglitazone HCl [Actos] 15 mg PO DAILY 05/10/18 06/01/18 History Amiodarone [Cordarone] 100 mg PO DAILY tab 05/13/18 06/01/18 Rx Citalopram Hydrobromide [CeleXA] 20 mg PO DAILY PRN 06/01/18 06/01/18 History Allergies Allergy/AdvReac Type Severity Reaction Status Date / Time hydrocodone bitartrate AdvReac Nausea Verified 06/01/18 08:47 [From Vicodin] Physical Exam Vitals: Vital Signs Temp Pulse Pulse Resp BP BP Pulse Ox 06/01/18 13:58 86 148/77 06/01/18 11:58 86 06/01/18 11:52 92 06/01/18 10:00 97.9 F 87 18 197/102 100 06/01/18 04:25 98.1 F 94 16 159/76 94 L 06/01/18 04:00 91 18 138/69 99 06/01/18 03:46 98.2 F 84 16 138/69 99 06/01/18 03:00 92 23 151/77 99 06/01/18 02:15 20 98 06/01/18 02:00 93 17 151/77 97 06/01/18 01:19 150/69 06/01/18 01:01 24 06/01/18 00:16 98.5 F 101 H 22 150/69 100 Intake and Output 05/31/18 06/01/1806/01/19 22:59 06:59 14:59 Intake Total 350 Output Total 2 Balance 350 -2 Intake: Intake, IV Titration 350 Amount Piperacillin-Tazobactam 3 100 .375 gm In Sodium Chloride 0.9% 100 ml @ 25 mls/hr IVPB Q12HR [facility] Rx #:[id number] Vancomycin 1,250 mg In 250 Sodium Chloride 0.9% 250 ml @ 125 mls/hr IVPB ONCE STA Rx#:[id number] Output: Urine 1 Stool 1 Other: Voiding Method Diaper Diaper Incontinent Incontinent # Voids 1 # Bowel Movements 1 Weight 65.771 kg 65.771 kg GENERAL: The patient is alert and oriented x3, not in any acute distress. Patient is legally blind HEENT: Pupils are round and equally reacting to light. EOMI. No scleral icterus. No conjunctival pallor. Normocephalic, atraumatic. No pharyngeal erythema. No thyromegaly. CARDIOVASCULAR: S1 and S2 present. No murmurs, rubs, or gallops. -PULMONARY: Chest is clear to auscultation, no wheezing Bilateral coarse crepitation and harsh breath sounds ABDOMEN: Soft, nontender, nondistended, normoactive bowel sounds. No palpable organomegaly. MUSCULOSKELETAL: No joint swelling or deformity. EXTREMITIES: No cyanosis, clubbing, or pedal edema. NEUROLOGICAL: Gross neurological examination did not reveal any focal deficits. SKIN: No rashes. Results CBC & Chem 7: 06/01/18 01:35 06/01/18 01:35 Labs: Abnormal Lab Results - Last 24 Hours (Table) 06/01/18 06/01/18 06/01/18 Range/Units 01:35 01:35 01:35 RBC 3.46 L (4.30-5.90) m/uL Hgb 10.3 L (13.0-17.5) gm/dL Hct 32.3 L (39.0-53.0) % Lymphocytes # 0.8 L (1.0-4.8) k/uL Sodium 136 L (137-145) mmol/L BUN 29 H (9-20) mg/dL Creatinine 1.49 H (0.66-1.25) mg/dL Glucose 178 H (74-99) mg/dL POC Glucose (mg/dL) (75-99) mg/dL Hemoglobin A1c 6.4 H (4.0-6.0) % 06/01/18 06/01/18 Range/Units 07:14 11:17 RBC (4.30-5.90) m/uL Hgb (13.0-17.5) gm/dL Hct (39.0-53.0) % Lymphocytes # (1.0-4.8) k/uL Sodium (137-145) mmol/L BUN (9-20) mg/dL Creatinine (0.66-1.25) mg/dL Glucose (74-99) mg/dL POC Glucose (mg/dL) 239 H 225 H (75-99) mg/dL Hemoglobin A1c (4.0-6.0) % Thrombosis Risk Factor Assmnt - Choose All That Apply Any of the Below Risk Factors Present?: Yes Each Factor Represents 1 point: Abnormal pulmonary function (COPD), Medical pt on bed rest, Serious lung disease incl. pneumonia (< 1month) Other Risk Factors: Yes Each Risk Factor Represents 2 Points: Age 61-74 years, Patient confined to bed Other congenital or acquired thrombophilia - If yes, enter type in comment: No Thrombosis Risk Factor Assessment Total Risk Factor Score: 7 Thrombosis Risk Factor Assessment Level: High Risk Assessment and Plan Assessment: Community acquired pneumonia on both sides. Generalized weakness Acute kidney injury History of chronic kidney disease History of Atrial fibrillation History of CVA history of diabetes mellitus History of hyperlipidemia History of hypertension, essential History of memory impairment History of syncope History of spondylolisthesis Urine or bowel incontinence, call History of falls Plan: This is a pleasant 72 years old male who presents because of pneumonia. Continue with antibiotic. Since sputum culture. Labs and medication were reviewed.. Continue same treatment. Continue with symptomatic treatment. Resume home medication. Monitor lytes and vitals. DVT and GI prophylaxis. Further recommendations of the clinical course of the patient DVT prophylaxis: Subcutaneous heparin GI Prophylaxis: Pepcid PT/OT: Pending Prognosis is guarded
[2018-06-02] MEDS: PIPERACILLIN-TAZOBACTAM 3.375 GM in SODIUM CHLORIDE 0.9% 100 ML IVPB SCH ×3 (02:24→20:38)
[2018-06-02] MEDS: methylPREDNISolone SOD SUCCI 125 MG/2 ML VIAL IV SCH ×4 (02:24→20:38)
[2018-06-02] MEDS ORDERED: VANCOMYCIN 1,250 MG in SODIUM CHLORIDE 0.9% 250 ML IVPB SCH (03:00)
[2018-06-02 07:15] LABS: Glucose,Whole Blood 177 mg/dL (75-99)
[2018-06-02] MEDS: IPRATROPIUM-ALBUTEROL 3 ML NEB INHALATION PRN ×4 (08:24→21:13)
[2018-06-02] MEDS: INSULIN ASPART 100 UNIT/ML 1 ML 10 ML VIAL SQ SCH ×4 (09:08→20:38)
[2018-06-02] MEDS: APIXABAN 5 MG TAB PO SCH ×2 (09:08→20:37)
[2018-06-02] MEDS: amLODIPine 5 MG TAB PO SCH (09:08)
[2018-06-02] MEDS: ASPIRIN 81 MG PO SCH (09:08)
[2018-06-02] MEDS: CITALOPRAM HYDROBROMIDE 10 MG TAB PO SCH (09:08)
[2018-06-02] MEDS: AMIODARONE 100 MG TAB PO SCH (09:09)
[2018-06-02] MEDS: ZINC OXIDE TOPICAL SCH ×2 (09:09→20:39)
[2018-06-02] MEDS: METOPROLOL TARTRATE 12.5 MG TAB PO SCH (09:09)
[2018-06-02] MEDS: DIMETHICONE TOPICAL SCH ×2 (09:09→20:39)
[2018-06-02 11:37] LABS: Glucose,Whole Blood 218 mg/dL (75-99)
[2018-06-02 12:25] LABS: Calcium 8.3 mg/dL (8.4-10.2)
[2018-06-02 12:28] LABS: Potassium 4.5 mmol/L (3.5-5.1)
[2018-06-02] MEDS ORDERED: VANCOMYCIN IV PER PHARMACY 1 EACH MISC MISCELLANE PRN (12:46)
[2018-06-02 17:09] LABS: Glucose,Whole Blood 195 mg/dL (75-99)
[2018-06-02 19:37] LABS: Glucose,Whole Blood 230 mg/dL (75-99)
--- NOTE | 2018-06-02 19:58 | CONS ---
CONSULTATION DATE OF SERVICE: 06/02/2018 REASON FOR CONSULTATION: Pneumonia. HISTORY OF PRESENT ILLNESS: The patient is a 72 -year-old male who was brought into the ER at [facility] yesterday morning by the EMS for evaluation of cough, hypoxemia and possible fall. Apparently the patient rolled out of the bed and caregiver at the facility found him lying next to the bed. The patient seemed to have increasing shortness of breath associated with it and he was noticed to have an O2 sats around mid 80s. EMS was called and on room air the patient's O2 sats 88%. The patient did receive treatment with overall improvement in his O2 sats to 95%. Patient subsequently was transferred to the ER where the patient was evaluated by the ER physician. On arrival to the ER, the patient did have evidence of chest x-ray that was done which showed new bilateral pulmonary infiltrate. Complete old exam mild heart failure . The patient did not have any high-grade fever and white count has been normal. The creatinine was slightly elevated to 1.38. UA was negative. Influenza serology was negative. The patient has been started on Solu-Medrol, Zosyn and vancomycin. Infectious Disease was consulted for further recommendation regarding antibiotic therapy. The patient himself is not a very good historian so most of the information has been obtained from thorough review of the chart and talking to nursing staff. REVIEW OF SYSTEMS: Could not be reliably obtained though the positive points have been mentioned in the HPI. PAST MEDICAL HISTORY: Atrial fibrillation, COPD, CVA, TIA, diabetes mellitus, hyperlipidemia, hypertension, memory impairment, syncope. PAST SURGICAL HISTORY: Laparoscopic cholecystectomy. SOCIAL HISTORY: Remote history of smoking. No drinking, no drug use. FAMILY HISTORY: Both parents have history of diabetes. Mother also with a history of dementia. ALLERGIES: HYDROCODONE. MEDICATIONS: Medications include the patient is currently on: DuoNeb, Amiodarone, Norvasc, Eliquis, aspirin, Celexa, NovoLog, lactulose, Solu-Medrol, Lopressor, Zosyn and vancomycin. PHYSICAL EXAMINATION: Blood pressure is 155/62 with a pulse of 82. Temperature 98.3. He is 99% on 2 L nasal cannula. GENERAL DESCRIPTION is an elderly male lying in bed in no distress. No tachypnea or accessory muscle of respiration use. HEENT: Shows pallor. No scleral icterus. Oral mucosa membranes dry. No pharyngeal erythema. No thrush. NECK: Trachea central. No thyromegaly. LUNGS: Unlabored breathing. Some coarse breath sounds in the bases. No wheeze. Heart S1, S2. Irregular rhythm. No added sounds. ABDOMEN: Soft, no tenderness. No guarding or rigidity. EXTREMITIES: No edema of the feet. SKIN: No leena or mass palpable. NEUROLOGICAL: The patient is currently awake, alert, oriented x1. No agitation was noted. LABS: Hemoglobin is 10.8, white count 6.8. BUN of 31, creatinine 1.38. UA has been negative. Influenza serology was negative. DIAGNOSTIC IMPRESSION AND PLAN: Patient presented to the hospital with increasing shortness of breath. Hypoxemia with bilateral pulmonary infiltrate concern possibly is pulmonary edema to be likely, pneumonia less likely but not entirely excluded. Clinically doubt MRSA pneumonia. The patient did have a borderline kidney function and high risk for nephrotoxicity from the vancomycin. PLAN: 1. We will try to obtain sputum for Gram stain culture and sensitivity. 2. Keep the patient on Zosyn 3.375 q8 and on oral doxycycline. However, discontinue vancomycin. 3. We will follow up on his clinical condition and cultures to further adjust medication if needed. Thank you for this consultation. We will follow the patient along with you. MMODL / IJN: [id number] /
[2018-06-02] MEDS: DOXYCYCLINE 100 MG CAP PO SCH (21:24)
--- NOTE | 2018-06-02 22:05 | P.PN ---
Subjective This is a pleasant 72 years old male with past medical history of chronic atrial fibrillation and, stroke, diabetes mellitus, hypertension, syncope, urine or bowel incontinence, fall, he is legally blind. Presents because of dyspnea of 2 days' duration associated with dry cough and generalized weakness. Patient denies chest pain except when he coughs. On admission he has chest x- ray which shows new bilateral pulmonary infiltrates which are new with mild heart failure. He has no fever or leukocytosis. His creatinine is 1.4, baseline is 1.1 -1.9. Sugar in the high side is uncontrolled. Influenza was negative. In the emergency room he got 1 dose of vancomycin and he was started on Zosyn. [place] of 2 months ago showing ejection fraction 55-60% with moderate LVH. 06/02/2018 Patient was sitting up in chair trying to eat his food. He still have dyspnea, patient thinks she is disabled but improving.. This coughing but with no phlegm. On examination he has wheezing on both sides. No abdominal pain or diarrhea. Vital signs stable and patient is afebrile. Creatinine is improving from 1.49 down to 1.38. No leukocytosis area at influenza is negative. infectious disease input is appreciated , pt antibiotic changed to zosyn and oral doxycycline , dc vanco. Patient on Solu-Medrol 60 mg IV every 6 hours. Objective - Vital Signs Vital signs: Vital Signs Temp 98.3 F 06/02/18 07:00 Pulse 79 06/02/18 11:46 Resp 18 06/02/18 07:00 BP 135/73 06/02/18 07:00 Pulse Ox 99 06/02/18 07:00 Intake & Output 06/01/18 06/02/18 06/02/18 18:59 06:59 18:59 Intake Total 50 240 460 Output Total 4 Balance 46 240 460 Weight 65.771 kg Intake: Intake, IV Titration 100 Amount Piperacillin-Tazobactam 3 100 .375 gm In Sodium Chloride 0.9% 100 ml @ 25 mls/hr IVPB Q8H [facility] Rx#: [id number] Oral 50 240 360 Output: Urine 2 Stool 2 Other: Voiding Method Diaper Diaper Diaper Incontinent # Voids 1 1 2 # Bowel Movements 1 - Exam GENERAL: The patient is alert and oriented x3, not in any acute distress. Well developed, well nourished. HEENT: Pupils are round and equally reacting to light. EOMI. No scleral icterus. No conjunctival pallor. Normocephalic, atraumatic. No pharyngeal erythema. No thyromegaly. CARDIOVASCULAR: S1 and S2 present. No murmurs, rubs, or gallops. -PULMONARY: Chest is clear to auscultation, decreased breath sounds on both lung bases, with scattered wheezing ABDOMEN: Soft, nontender, nondistended, normoactive bowel sounds. No palpable organomegaly. MUSCULOSKELETAL: No joint swelling or deformity. EXTREMITIES: No cyanosis, clubbing, or pedal edema. NEUROLOGICAL: Gross neurological examination did not reveal any focal deficits. SKIN: No rashes. - Labs CBC & Chem 7: 06/01/18 01:35 06/02/18 10:21 Labs: Abnormal Lab Results - Last 24 Hours (Table) 06/01/18 06/01/18 06/01/18 Range/Units 17:49 19:36 20:45 Chloride (98-107) mmol/L Carbon Dioxide (22-30) mmol/L BUN (9-20) mg/dL Creatinine (0.66-1.25) mg/dL Glucose (74-99) mg/dL POC Glucose (mg/dL) 166 H 178 H (75-99) mg/dL Calcium (8.4-10.2) mg/dL Urine Protein 1+ H (Negative) Urine Glucose (UA) 1+ H (Negative) Urine Mucus Rare H (None) /hpf 06/02/18 06/02/18 06/02/18 Range/Units 07:14 10:21 11:25 Chloride 111 H (98-107) mmol/L Carbon Dioxide 21 L (22-30) mmol/L BUN 31 H (9-20) mg/dL Creatinine 1.38 H (0.66-1.25) mg/dL Glucose 215 H (74-99) mg/dL POC Glucose (mg/dL) 177 H 218 H (75-99) mg/dL Calcium 8.3 L (8.4-10.2) mg/dL Urine Protein (Negative) Urine Glucose (UA) (Negative) Urine Mucus (None) /hpf Microbiology - Last 24 Hours (Table) 06/01/18 20:45 Urine Culture - Preliminary Urine,Clean Catch 06/01/18 01:35 Blood Culture - Preliminary Blood No Growth after 24 hours Assessment and Plan Assessment: Community acquired pneumonia on both sides. Generalized weakness Acute kidney injury COPD, mild acute exacerbation History of chronic kidney disease History of Atrial fibrillation History of CVA history of diabetes mellitus History of hyperlipidemia History of hypertension, essential History of memory impairment History of syncope History of spondylolisthesis Urine or bowel incontinence, call History of falls Plan: This is a pleasant 72 years old male who presents because of pneumonia. Continue with antibiotic. Since sputum culture. Labs and medication were reviewed.. Continue same treatment. Continue with symptomatic treatment. Resume home medication. Monitor lytes and vitals. DVT and GI prophylaxis. Further recommendations of the clinical course of the patient DVT prophylaxis: Subcutaneous heparin GI Prophylaxis: Pepcid PT/OT: Pending Prognosis is guarded
[2018-06-03] MEDS: IPRATROPIUM-ALBUTEROL 3 ML NEB INHALATION PRN ×6 (00:49→21:13)
[2018-06-03] MEDS: PIPERACILLIN-TAZOBACTAM 3.375 GM in SODIUM CHLORIDE 0.9% 100 ML IVPB SCH ×3 (03:07→20:24)
[2018-06-03] MEDS: methylPREDNISolone SOD SUCCI 125 MG/2 ML VIAL IV SCH ×2 (03:07→08:39)
[2018-06-03 07:32] LABS: Glucose,Whole Blood 226 mg/dL (75-99)
[2018-06-03] MEDS: ASPIRIN 81 MG PO SCH (08:39)
[2018-06-03] MEDS: amLODIPine 5 MG TAB PO SCH (08:39)
[2018-06-03] MEDS: AMIODARONE 100 MG TAB PO SCH (08:39)
[2018-06-03] MEDS: DOXYCYCLINE 100 MG CAP PO SCH ×2 (08:39→20:25)
[2018-06-03] MEDS: APIXABAN 5 MG TAB PO SCH ×2 (08:39→20:25)
[2018-06-03] MEDS: METOPROLOL TARTRATE 12.5 MG TAB PO SCH (08:39)
[2018-06-03] MEDS: CITALOPRAM HYDROBROMIDE 10 MG TAB PO SCH (08:39)
[2018-06-03] MEDS: INSULIN ASPART 100 UNIT/ML 1 ML 10 ML VIAL SQ SCH ×4 (08:40→20:25)
[2018-06-03 10:06] LABS: Calcium 8.8 mg/dL (8.4-10.2); Potassium 4.3 mmol/L (3.5-5.1)
[2018-06-03 12:01] LABS: Glucose,Whole Blood 258 mg/dL (75-99)
[2018-06-03] MEDS: BUDESONIDE 1 MG/2 ML NEBU INHALATION SCH ×2 (12:53→21:12)
--- NOTE | 2018-06-03 12:58 | CDI ---
Documentation Clarification Form Date: 06/03/2018 12:43:47 PM From: Teena Rose CCS, CCDS Admit Date: 06/01/2018 2:46:00 AM Patient Name: Denis Barajas Visit Number: [id number] Discharge Date: ATTENTION: The Clinical Documentation Specialists (CDI) and [facility] Coding Staff appreciate your assistance in clarifying documentation. Please respond to the clarification below the line at the bottom and electronically sign. The CDI & [facility] Coding staff will review the response and follow-up if needed. Please note: Queries are made part of the Legal Health Record. If you have any questions, please contact the author of this message via ITS. Dr. Foley Sheet: Per the History & Physical & 06/02 progress note: history of CKD. History/Risk Factors: Hypertension, NIDDM II, Chronic Atrial Fibrillation, bed bound, legally blind. Clinical Indicators: Presented after fall from bed, dry cough, generalized weakness. Admitted for new pneumonia. Current BUN 29 - 38; Creatinine: 1.49 - 1.47; GFR 46 - 50 Patients Baseline BUN/CR/GFR: 1.1 - 1.9 Treatment: IV antibiotics, IV fluids, Albuterol INH, IV steroids, O2, Insulin sq In order to capture the severity of condition, please clarify if the condition signifies: CKD Stage 1 (GFR > 90) CKD Stage 2 (GFR 60-89) CKD Stage 3 (GFR 30-59) CKD Stage 4 (GFR 15-29) CKD Stage 5 (GFR <15) Other, please specify Unable to determine (Last Revision: August 2017) unable to determine MTDD
--- NOTE | 2018-06-03 13:07 | CDI ---
Documentation Clarification Form Date: 06/03/2018 12:59:27 PM From: Teena Rose CCS, CCDS Admit Date: 06/01/2018 2:46:00 AM Patient Name: Denis Barajas Visit Number: [id number] Discharge Date: ATTENTION: The Clinical Documentation Specialists (CDI) and [facility] Coding Staff appreciate your assistance in clarifying documentation. Please respond to the clarification below the line at the bottom and electronically sign. The CDI & [facility] Coding staff will review the response and follow-up if needed. Please note: Queries are made part of the Legal Health Record. If you have any questions, please contact the author of this message via ITS. Dr. Foley Sheet: CHF is documented in the 06/01 CXR, the 06/01 History & Physical & the 06/02 attending progress note as "On admission he has chest x- ray which shows new bilateral pulmonary infiltrates which are new with mild heart failure." History/Risk Factors: Chronic Atrial fibrillation, COPD, CVA, NIDDM II, Hyperlipidemia, CKD nos & Hypertension. Former smoker. Clinical Indicators: Presented with dry cough, diagnosed with pneumonia. VS: P 101^, R 22-24^ (sob, cough), BP 150/69, PO 100 4Lnc BNP: none documented. Echocardiogram Results: Per documentation in History & Physical, previous ECHO two months ago, EF 55-60% w/moderate LVH. Chest X Ray: as above. Treatment for pneumonia with IV abx, IV steroids, Albuterol INH & O2. In your professional opinion, can you please clarify the acuity and type of CHF if known or is CHF ruled out? Systolic Heart Failure: o Acute o Chronic o Acute on Chronic Diastolic Heart Failure: o Acute o Chronic o Acute on Chronic Systolic & Diastolic Heart Failure: o Acute o Chronic o Acute on Chronic Heart Failure Unable to Determine Other, please specify (Last Revision: August 2017) unable to determine MTDD
[2018-06-03] MEDS: guaiFENesin 600 MG TABLET.ER PO SCH ×2 (13:24→20:25)
[2018-06-03] MEDS: methylPREDNISolone SOD SUCCI 40 MG/ML 1 ML VIAL IV SCH ×2 (16:19→23:30)
[2018-06-03] MEDS: DIMETHICONE TOPICAL SCH ×2 (16:22→20:20)
[2018-06-03] MEDS: ZINC OXIDE TOPICAL SCH ×2 (16:22→20:20)
[2018-06-03 16:35] LABS: Glucose,Whole Blood 251 mg/dL (75-99)
[2018-06-03] MEDS ORDERED: FUROSEMIDE 10 MG/ML 2 ML VIAL IV STA (17:32)
[2018-06-03 19:53] LABS: Glucose,Whole Blood 231 mg/dL (75-99)
--- NOTE | 2018-06-03 20:55 | XR ---
EXAMINATION TYPE: XR chest 1V DATE OF EXAM: 06/03/2018 CLINICAL HISTORY: Difficulty breathing and wheezing progress study. TECHNIQUE: Single AP portable upright view of the chest is obtained. COMPARISON: Chest x-ray from 2 days earlier and older studies. FINDINGS: Cardiomegaly with central vascular congestion remains present. No large pleural effusion o r pneumothorax is seen bilaterally. Interval improvement in right upper lobe opacity. Old posterior l ateral left rib fractures are redemonstrated. IMPRESSION: Cardiomegaly with central vascular congestion remains present. Interval improvement or re solution of bilateral focal infiltrates and/or edema noted.
[2018-06-03] MEDS ORDERED: FUROSEMIDE 10 MG/ML 4 ML VIAL IV STA (21:45)
--- NOTE | 2018-06-03 23:26 | PN ---
PROGRESS NOTE DATE OF SERVICE: 06/03/2018 REASON FOR FOLLOWUP: Pneumonia. INTERVAL HISTORY: The patient is currently afebrile. He has been breathing more comfortably. He did have some congested cough, not bringing up any sputum. No nausea, no vomiting. No abdominal pain or diarrhea. PHYSICAL EXAMINATION: Blood pressure is 144/77 with a pulse of 87, temperature 98.4. He is 97% on 2 L nasal cannula. General description is an elderly male lying in bed in no distress. RESPIRATORY SYSTEM: Unlabored breathing. Some coarse breath sounds at the base bilaterally. No wheeze. HEART: S1, S2. Regular rate and rhythm. ABDOMEN: Soft. No tenderness. LABS: BUN of 32, creatinine 1.47. Blood culture so far negative. Sputum was not collected. The patient did have a chest x-ray showing cardiomegaly and central vascular congestion, interval improvement, and resolution of bilateral focal infiltrate. DIAGNOSTIC IMPRESSION AND PLAN: Patient admitted to hospital with hypoxemia, increasing shortness of breath, and he did have a congested cough with evidence of bilateral infiltrate, concern for possible pneumonia. Patient is currently covered with Zosyn and doxycycline, to continue for now. Will try to obtain sputum to narrow down his antibiotics. Continue supportive care. MMODL / IJN: [id number] /
[2018-06-04] MEDS: IPRATROPIUM-ALBUTEROL 3 ML NEB INHALATION PRN ×6 (00:17→19:50)
--- NOTE | 2018-06-04 00:32 | PN ---
PROGRESS NOTE DATE OF SERVICE: 06/03/2018. PRESENTING COMPLAINT: Short of breath. INTERVAL HISTORY: The patient was admitted with bilateral pneumonia. This morning was doing somewhat better, slight cough, not able to expectorate. Later in the afternoon, the patient became more and more short of breath. I did order a chest x-ray in the evening and it did come back showing venous prominence and also BNP came back greater than 4000. I did order IV Lasix. The patient otherwise did tolerate his diet. He is lying in bed. The patient is legally blind. REVIEW OF SYSTEMS: Done for constitutional, cardiovascular, GI, pulmonary; relevant findings as above. CURRENT MEDICATIONS: Reviewed, that include IV Solu-Medrol, doxycycline, IV Zosyn. PHYSICAL EXAMINATION: Temperature 98, pulse 90, respirations 16, blood pressure 136/70, pulse ox 97% on 2 L. GENERAL APPEARANCE: Lying in bed, awake. EYES: Pupils equal. Conjunctiva dirty appearing, hazy cornea. NECK: JVD unable to assess. Mass not palpable. LUNGS: Decreased breath sounds, prolonged expiration and wheezing. Some crackles. CARDIOVASCULAR: 1st and 2nd heart sounds are normal. No edema. ABDOMEN: Soft, nontender. Liver and spleen not palpable. PSYCHIATRY: The patient is able to answer simple questions. INVESTIGATIONS: Chest x-ray film personally reviewed by me, shows evidence of infiltrates, venous prominence, and fluid in the horizontal fissure. Potassium 4.3, BUN 38, creatinine 1.47. ProBNP 4040. ASSESSMENT: 1. Acute congestive heart failure exacerbation from diastolic dysfunction. Ejection fraction 55% to 60% from December of 2017. 2. Hypertensive heart disease with concentric left ventricular hypertrophy atrophy. 3. 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 4. Chronic obstructive pulmonary disease in an ex-smoker. 5. Diabetes mellitus type 2 on oral hypoglycemic. 6. Hyperlipidemia. 7. Essential hypertension. 8. Chronic T12 compression fracture. 9. Urine and bowel incontinence, chronic. 10.Chronic medical debility. 11.Legally blind, patient only perceives light. 12.Chronic medical debility, patient needs assistance for transfers. 13.Chronic kidney disease stage 3 from nephrosclerosis. 14.Bilateral pneumonia, suspect gram-negative organism present on admission. PLAN: Continue with antibiotics per Dr. Oseguera. The patient also was given a dose of IV Lasix. Other medication and treatment plan is to continue. Follow electrolytes. MMODL / IJN: [id number] /
[2018-06-04] MEDS: PIPERACILLIN-TAZOBACTAM 3.375 GM in SODIUM CHLORIDE 0.9% 100 ML IVPB SCH ×3 (04:07→20:14)
[2018-06-04 06:58] LABS: Glucose,Whole Blood 236 mg/dL (75-99)
[2018-06-04] MEDS: INSULIN ASPART 100 UNIT/ML 1 ML 10 ML VIAL SQ SCH ×4 (07:40→20:29)
[2018-06-04] MEDS: methylPREDNISolone SOD SUCCI 40 MG/ML 1 ML VIAL IV SCH (07:41)
[2018-06-04] MEDS: amLODIPine 5 MG TAB PO SCH (07:41)
[2018-06-04] MEDS: APIXABAN 5 MG TAB PO SCH ×2 (07:41→20:14)
[2018-06-04] MEDS: DOXYCYCLINE 100 MG CAP PO SCH ×2 (07:41→20:29)
[2018-06-04] MEDS: guaiFENesin 600 MG TABLET.ER PO SCH ×2 (07:41→20:14)
[2018-06-04] MEDS: CITALOPRAM HYDROBROMIDE 10 MG TAB PO SCH (07:41)
[2018-06-04] MEDS: ASPIRIN 81 MG PO SCH (07:41)
[2018-06-04] MEDS: METOPROLOL TARTRATE 12.5 MG TAB PO SCH (07:41)
[2018-06-04] MEDS: AMIODARONE 100 MG TAB PO SCH (07:42)
[2018-06-04 09:14] LABS: Basophils % (A) 0 %; Eosinophils # (A) 0.1 k/uL (0-0.7); Eosinophils % (A) 1 %; HCT 29.3 % (39.0-53.0); HGB 9.3 gm/dL (13.0-17.5); Hypochromasia Slight; Lymphocytes # (A) 0.5 k/uL (1.0-4.8); Lymphocytes % (A) 9 %; MCH 30.2 pg (25.0-35.0); MCHC 31.9 g/dL (31.0-37.0); MCV 94.6 fL (80.0-100.0); Mean Platelet Volume 7.2; Monocytes # (A) 0.3 k/uL (0-1.0); Monocytes % (A) 5 %; Neutrophils # (A) 4.6 k/uL (1.3-7.7); Neutrophils % (A) 85 %; Platelet Count 251 k/uL (150-450); WBC 5.4 k/uL (3.8-10.6)
[2018-06-04 09:30] LABS: Calcium 8.2 mg/dL (8.4-10.2); Potassium 3.7 mmol/L (3.5-5.1)
[2018-06-04] MEDS: BUDESONIDE 1 MG/2 ML NEBU INHALATION SCH ×2 (09:47→19:50)
[2018-06-04 11:55] LABS: Glucose,Whole Blood 188 mg/dL (75-99)
[2018-06-04] MEDS: DIMETHICONE TOPICAL SCH ×2 (16:52→20:26)
[2018-06-04] MEDS: ZINC OXIDE TOPICAL SCH ×2 (16:52→20:26)
[2018-06-04 16:54] LABS: Glucose,Whole Blood 178 mg/dL (75-99)
[2018-06-04] MEDS: methylPREDNISolone SOD SUCCI 125 MG/2 ML VIAL IV SCH (17:06)
--- NOTE | 2018-06-04 18:21 | CONS ---
CONSULTATION PULMONARY CRITICAL CARE CONSULT: DATE OF SERVICE: June 04, 2018 This is a 72-year-old male who apparently was seen in the emergency room. The patient has an extensive past medical history and is brought into the emergency department today by EMS for evaluation of shortness of breath, cough, and low blood saturations. The patient apparently fell as he rolled out of bed. He was apparently lying on the floor next to the bed. He seemed to apparently be working hard to breathe. He had saturations in the mid 80s. They called 911. EMS found the patient sitting on the bed with a saturation of only 88%. He apparently was given oxygen and nebulizer treatment and his saturations improved to 95%. He was transferred to the ER to be evaluated. The patient complains of a cough. Does not produce much of any phlegm. The patient is not a particularly good historian. He had generalized malaise and weakness. Denied any chest pain or chest discomfort. He was evaluated in the emergency room on the and admitted on that day, and we were just consulted today. Apparently, Dr. Rendon thought we should see the patient. He was given some diuretics today for concerns of fluid overload. MEDICATIONS: At the facility where he resides, include aspirin, Tylenol, Protonix, Pulmicort updrafts, vitamin D3, Celexa, iron, albuterol and Atrovent updrafts, lisinopril, Zofran, Norvasc, Zinc oxide cream, lactulose, milk of magnesia, Lac-Hydrin lotion, Eliquis, Lipitor, insulin lispro, melatonin, metoprolol, and Actos. He was also apparently on Cordarone. ALLERGIES: INCLUDE PRIMARILY HYDROCODONE. PAST MEDICAL HISTORY: Apparently positive for COPD, CVA, diabetes, blindness, hyperlipidemia, hypertension, dementia, syncope, glaucoma, deafness, CVA, pneumonitis, T12 compression fracture, spondylolisthesis, urinary and bowel incontinence, cholecystitis and anemia. SURGICAL HISTORY: Includes among other things laparoscopic cholecystectomy. SOCIAL HISTORY: Positive for previous heavy tobacco use. Does not smoke currently. Denies any alcohol use or illicit drug use. FAMILY HISTORY: Positive for diabetes mellitus. REVIEW OF SYSTEMS: Is somewhat unreliable. He complains primarily of shortness of breath, cough, chest congestion. The patient is blind and a very poor historian. PHYSICAL EXAMINATION: Current vital signs are reviewed. His temperature is 98.6, heart rate 82, respiratory rate 18, blood pressure 165/92, mean 116. 3 L saturation 98%. Appears in no acute distress. HEENT examination is grossly unremarkable. Mucous membranes are moist. NECK: Supple. Full range of motion. No adenopathy. Cardiovascular examination reveals regular rhythm and rate. Heart rate in mid 80s. Heart sounds are distant. Heart sounds are obscured by respiratory sounds. Breath sounds are rather coarse. He has got coarse inspiratory and expiratory rhonchi. No distinct wheezes are noted. There are crackles throughout. Abdomen is soft. Extremities are intact. Minimal edema. Skin without rash. Neurologic examination is difficult to assess, but he does move all 4 extremities. His chest x-ray from the shows changes of cardiomegaly and vascular congestion. The bases of the lungs appear to be improved compared to the x-ray done on the . Laboratory data is also reviewed. White count 5.4, hemoglobin 9.3, hematocrit 29.3, platelet count 351,000. Sodium potassium, chloride, CO2 all normal. Anion gap normal. BUN and creatinine were 38, 1.54. His urine was negative. His influenza studies were negative. Microbiologic studies include urine blood cultures are negative. Medications are reviewed. ASSESSMENT: 1. Shortness of breath, likely multifactorial in part related to underlying COPD exacerbation, possibly complicated by purulent tracheobronchitis and/or bronchial pneumonia and also congestive heart failure. 2. Chronic hypoxemic respiratory failure. 3. History of chronic obstructive pulmonary disease. 4. History of cerebrovascular accident. 5. Diabetes mellitus. 6. Blindness. 7. Hyperlipidemia. 8. Hypertension. 9. Dementia. 10.Glaucoma. 11.Cholecystitis. 12.Chronic anemia. 13.Degenerative disc disease. 14.T12 compression fracture. PLAN: The patient is on appropriate medications in the form of Pulmicort and formoterol twice a day. He is also on DuoNeb q.i.d. and p.r.n. He is on Solu-Medrol 60 mg q.6 hours. He is currently on Zosyn and doxycycline. Also, Dr. Rendon added some diuretic as his chest x-ray looks to be showing some congestive heart failure changes. His overall prognosis is very guarded. His other medications are appropriate. We will continue to follow. Additional recommendations and suggestions are forthcoming. The initial chest x-ray on the seemed to suggest some bilateral patchy pulmonary infiltrates which may relate to aspiration when he initially fell. MMODL / IJN: [id number] /
[2018-06-04] MEDS: FORMOTEROL FUMARATE 20 MCG/2 ML NEBU INHALATION SCH (20:00)
[2018-06-04 20:33] LABS: Glucose,Whole Blood 198 mg/dL (75-99)
--- NOTE | 2018-06-05 03:13 | PN ---
PROGRESS NOTE DATE OF SERVICE: 06/04/2018 REASON FOR FOLLOWUP: Possible pneumonia. INTERVAL HISTORY: The patient is currently afebrile. He is breathing more comfortably. He did have some cough but not bringing up any sputum. No chest pain. No abdominal pain. No diarrhea. PHYSICAL EXAMINATION: Blood pressure 153/75 with a pulse of 87, temperature 97.7. He is 98% on 2 L nasal cannula. General description is an elderly male up in the chair in no distress. RESPIRATORY SYSTEM: Unlabored breathing. Bilateral expiratory wheeze. HEART: S1, S2. Regular rate and rhythm. ABDOMEN: Soft. No tenderness. LABS: Hemoglobin 9.3, white count 5.4, BUN of 38, creatinine 1.54. Blood culture has been negative so far. Sputum not collected. DIAGNOSTIC IMPRESSION AND PLAN: Patient admitted to hospital with difficulty breathing, hypoxemia, which is likely multifactorial; possible chronic obstructive pulmonary disease exacerbation and a component of tracheobronchitis/pneumonia. Patient is currently covered with Zosyn and doxycycline, to continue for now. Try to obtain sputum to narrow down his antibiotics. Continue with supportive care. MMODL / IJN: [id number] /
--- NOTE | 2018-06-05 03:13 | PN ---
PROGRESS NOTE DATE OF SERVICE: 06/04/2018. PRESENT COMPLAINT: Short of breath. INTERVAL HISTORY: Patient admitted with bilateral pneumonia and then went into congestive heart failure. Did respond to Lasix. Feeling better today. Did tolerate a diet. Less chest congestion. Cough. No sputum. REVIEW OF SYSTEMS: Done for constitutional, cardiovascular, GI, pulmonary; relevant findings as above. CURRENT MEDICATIONS: Reviewed, that include Cordarone, Norvasc, Eliquis, Pulmicort, doxycycline, IV Solu- Medrol, IV Zosyn. PHYSICAL EXAMINATION: Temperature 98.6, pulse 98, respirations 20, blood pressure 165/92 pulse 91 percent on 3 L. GENERAL APPEARANCE: Sitting up on a chair, awake. EYES: Pupils equal. Conjunctiva dirty appearing. Easy cornea. NECK: JVD unable to assess. Mass not palpable. LUNGS: Decreased breath sounds. Prolonged expiration. Less wheezing. CARDIOVASCULAR: First and second heart sounds. No edema. ABDOMEN: Soft, nontender. Liver and spleen not palpable. HEENT: Decreased hearing. PSYCH: The patient is able answer simple questions. INVESTIGATIONS: White count 5.4, hemoglobin 9.3, potassium 3.7, BUN 38, creatinine 1.54. ProBNP is 4430. ASSESSMENT: 1. Acute congestive heart failure exacerbation from diastolic dysfunction. Ejection fraction 55% to 60%, with clinical improvement. 2. Hypertensive heart disease with concentric left ventricular hypertrophy. 3. 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 4. Chronic obstructive pulmonary disease in an ex-smoker. 5. Diabetes mellitus type 2 on oral hypoglycemic. 6. Hyperlipidemia. 7. Essential hypertension. 8. Chronic T12 compression fracture. 9. Urine and bowel incontinence, chronic. 10.Chronic medical debility. 11.Legally blind. The patient only perceives light. 12.Chronic medical debility, patient needs assistance for transfers. 13.Chronic kidney disease stage 3 from nephrosclerosis. 14.Bilateral pneumonia, suspect gram-negative organism. Suspect aspiration, present on admission. PLAN: Continue current medication and treatment plan. The patient has shown improvement. Pulmonary was consulted. We will put the patient on scheduled bronchodilators. MMODL / IJN: [id number] /
[2018-06-05] MEDS: methylPREDNISolone SOD SUCCI 125 MG/2 ML VIAL IV SCH ×3 (06:28→12:30)
[2018-06-05] MEDS: IPRATROPIUM-ALBUTEROL 3 ML NEB INHALATION PRN ×4 (06:28→21:36)
[2018-06-05 07:18] LABS: Glucose,Whole Blood 249 mg/dL (75-99)
[2018-06-05] MEDS: INSULIN ASPART 100 UNIT/ML 1 ML 10 ML VIAL SQ SCH ×4 (08:03→22:11)
[2018-06-05] MEDS: BUDESONIDE 1 MG/2 ML NEBU INHALATION SCH (08:53)
[2018-06-05] MEDS: FORMOTEROL FUMARATE 20 MCG/2 ML NEBU INHALATION SCH (08:53)
[2018-06-05 08:54] LABS: Calcium 8.2 mg/dL (8.4-10.2)
[2018-06-05] MEDS: DOXYCYCLINE 100 MG CAP PO SCH ×2 (10:08→22:09)
[2018-06-05] MEDS: APIXABAN 5 MG TAB PO SCH ×2 (10:08→22:10)
[2018-06-05] MEDS: METOPROLOL TARTRATE 12.5 MG TAB PO SCH (10:08)
[2018-06-05] MEDS: ASPIRIN 81 MG PO SCH (10:08)
[2018-06-05] MEDS: guaiFENesin 600 MG TABLET.ER PO SCH ×2 (10:08→22:10)
[2018-06-05] MEDS: amLODIPine 5 MG TAB PO SCH (10:08)
[2018-06-05] MEDS: CITALOPRAM HYDROBROMIDE 10 MG TAB PO SCH (10:08)
[2018-06-05] MEDS: AMIODARONE 100 MG TAB PO SCH (10:08)
[2018-06-05] MEDS: ZINC OXIDE TOPICAL SCH ×2 (10:10→22:11)
[2018-06-05] MEDS: DIMETHICONE TOPICAL SCH ×2 (10:10→22:11)
[2018-06-05 11:37] LABS: Glucose,Whole Blood 301 mg/dL (75-99)
[2018-06-05] MEDS: PIPERACILLIN-TAZOBACTAM 3.375 GM in SODIUM CHLORIDE 0.9% 100 ML IVPB SCH ×3 (11:40→20:04)
[2018-06-05] MEDS ORDERED: FUROSEMIDE 10 MG/ML 4 ML VIAL IV STA (14:14)
--- NOTE | 2018-06-05 15:28 | PN ---
PROGRESS NOTE DATE OF SERVICE: 06/05/2018 This is a 72-year-old male who we saw yesterday in consultation. Our impressions was that he had shortness of breath, which was related to both COPD exacerbation, complicated by possible purulent tracheobronchitis or bronchopneumonia as well as some congestive heart failure. The patient feels a bit better today. He is not a particularly good historian. He is blind and somewhat deaf. Anyway, it is hard to get history from him. He does not appear to be uncomfortable. He is wearing oxygen. The patient does have a history of chronic hypoxemic respiratory failure, COPD, CVA, diabetes, blindness, hyperlipidemia, hypertension, dementia, glaucoma, cholecystitis, chronic anemia, degenerative disc disease and T12 compression fracture. Again, not a particularly good historian. He was trying to eat his meal and he had difficulty with it and most of the food is on his gown and also on his lap. Again, he is sitting in bed. No respiratory distress. No audible wheezing. Not using accessory muscles. Current vital signs are reviewed. His temperature is 97.9, heart rate 80, respiratory rate 14, blood pressure is 177/81 with mean 113, room air saturation 98%. Appears in no acute distress. HEENT examination is grossly unremarkable. He is receiving nasal O2 at 2 L. Neck is supple. Full range of motion. No adenopathy or thyromegaly. Cardiovascular examination reveals regular rhythm and rate. Heart sounds are distant. Lungs reveal some coarse rhonchi. There is a few scattered bibasilar crackles. No wheezes. Abdomen is soft. Bowel sounds are heard. Extremities are intact. Mild edema. Skin without rash. Neurologic examination is brief but nonfocal. LABS: Reviewed. Labs from today include a sodium 142, potassium 4, chloride 110, CO2 of 24, BUN and creatinine were 40 and 1.50. His calcium is 8.2. His N-terminal proBNP is elevated at 4430. Influenza studies are negative. Microbiology is negative. Chest x-ray done on the reveals changes of congestive heart failure. ASSESSMENT: 1. Shortness of breath, mostly related to underlying heart failure, in my opinion, although there may be a component of chronic obstructive pulmonary disease complicated by purulent tracheobronchitis or bronchopneumonia. 2. Chronic hypoxemic respiratory failure. 3. History of chronic obstructive pulmonary disease. 4. History of cerebrovascular accident. 5. Diabetes mellitus. 6. Blindness. 7. Hyperlipidemia. 8. Hypertension. 9. Dementia. 10.Glaucoma. 11.Cholecystitis. 12.Chronic anemia. 13.Degenerative disc disease. 14.T12 compression fracture. Plan dated 06/05/2018 His medications were evaluated yesterday. He appears to be improved. His chest x-ray looks mostly like congestive heart failure. I will review the medications and make sure they are appropriate. We might be able to deescalate some of these medications. Additional recommendations and suggestions are forthcoming. Will continue to follow. Again, he is a very poor historian, so most of the information is obtained from the medical record. MMODL / IJN: [id number] / LUIS ALBERTO
--- NOTE | 2018-06-05 16:55 | PN ---
PROGRESS NOTE DATE OF SERVICE: 06/05/2018 REASON FOR FOLLOWUP: Possible pneumonia. INTERVAL HISTORY: The patient is currently afebrile. He is breathing comfortably. Denies having any chest pain or cough. No abdominal pain. No diarrhea. PHYSICAL EXAMINATION: Blood pressure 169/74 with a pulse of 78, temperature 97.9. He is 99% on 2 L nasal cannula. General description is an elderly male lying in bed in no distress. RESPIRATORY SYSTEM: Unlabored breathing. Occasional wheeze. HEART: S1, S2. Regular rate and rhythm. ABDOMEN: Soft. No tenderness. LABS: BUN of 40, creatinine 1.50. DIAGNOSTIC IMPRESSION AND PLAN: Patient admitted to hospital with difficulty in breathing which is likely multifactorial, possibly a component of pneumonia. The patient seems to have improvement. Blood culture has been negative. No sputum was collected. If the patient continues to improve, to finish therapy with a short course of oral Avelox daily for about 5 days. Plan of care was discussed with the attending physician. KASHMIR / ERIKN: [id number] /
[2018-06-05 17:19] LABS: Glucose,Whole Blood 223 mg/dL (75-99)
[2018-06-05 20:19] LABS: Glucose,Whole Blood 259 mg/dL (75-99)
[2018-06-05] MEDS: SYMBICORT 160-4.5 MCG INHALER INHALATION SCH (21:33)
--- NOTE | 2018-06-05 23:51 | PN ---
PROGRESS NOTE DATE OF SERVICE: 06/05/2018. PRESENTING COMPLAINT: Short of breath. INTERVAL HISTORY: Patient admitted with bilateral pneumonia and congestive heart failure. Did respond well to Lasix. Congested today. Tolerating his diet. At rest he is good but when he coughs he sounds rather congested. Minimal edema. Some coughing present. REVIEW OF SYSTEMS: Done for constitutional, cardiovascular, GI, pulmonary; relevant findings as above. CURRENT MEDICATIONS: Reviewed, that include IV Zosyn, doxycycline, bronchodilators. PHYSICAL EXAMINATION: Temperature 98.2, pulse 84, respirations 16, blood pressure 116/74. GENERAL APPEARANCE: Lying in bed, awake. EYES: Pupils equal. Conjunctiva dirty appearing with hazy cornea. NECK: JVD unable to assess. Mass not palpable. Respiratory effort decreased. LUNGS: Decreased breath sounds. Some crackles. CARDIOVASCULAR: 1st and 2nd heart sounds normal. No edema. ABDOMEN: Soft, nontender. Liver and spleen not palpable. PSYCHIATRY: Answering simple questions. HEENT: Decreased hearing. INVESTIGATIONS: Potassium 4, BUN 40, creatinine 1.50. Accu-Cheks are noted. ASSESSMENT: 1. Acute congestive heart failure exacerbation from diastolic dysfunction. Ejection fraction 50% to 55%. May be still some element present. 2. Hypertensive heart disease, concentric left ventricular hypertrophy. 3. 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 4. Chronic obstructive pulmonary disease in an ex-smoker. 5. Diabetes mellitus type 2, on oral hypoglycemic, uncontrolled from steroids. 6. Hyperlipidemia. 7. Essential hypertension. 8. Chronic T12 compression fracture. 9. Urine and bowel incontinence, chronic. 10.Chronic medical debility. 11.Legally blind. The patient only perceives light. 12.Chronic medical debility. Patient needs assistance for transfers. 13.Chronic kidney disease stage 3 from nephrosclerosis. 14.Bilateral pneumonia suspect gram-negative organism, suspect aspiration on presentation. PLAN: Discussed with Dr. Oseguera. The patient should be able to switch to oral antibiotics tomorrow. Will give one dose of IV Lasix today. Check chest x-ray and labs in the morning. Overall prognosis is guarded. Hopefully can be [facility] tomorrow. MMODL / IJN: [id number] /
[2018-06-06] MEDS: IPRATROPIUM-ALBUTEROL 3 ML NEB INHALATION PRN ×4 (02:04→12:10)
[2018-06-06] MEDS: PIPERACILLIN-TAZOBACTAM 3.375 GM in SODIUM CHLORIDE 0.9% 100 ML IVPB SCH ×2 (04:24→10:53)
[2018-06-06 07:17] LABS: Glucose,Whole Blood 184 mg/dL (75-99)
--- NOTE | 2018-06-06 07:38 | XR ---
EXAMINATION TYPE: XR chest 2V DATE OF EXAM: 06/06/2018 COMPARISON: Chest x-ray 3 days ago and older studies. HISTORY: CHF and pneumonia TECHNIQUE: Frontal and lateral views of the chest are obtained. FINDINGS: The cardiac silhouette size remains enlarged with atherosclerotic thoracic aorta. There is new small right greater than left pleural effusions with increased blunting of right posterior later al costophrenic angle. Mild central vascular congestion remains present. Developing right midlung [place] could reflect increasing edema and/or infiltrate. No pneumothorax is seen bilaterally. Osseous s tructures are intact. IMPRESSION: Persistent cardiomegaly with better visualization of small right greater than left pleur al effusions and persistent central vascular congestion, worsening CHF exacerbation needs to BE consi dered. Developing right lung edema and/or infiltrate also noted. Progress study advised.
[2018-06-06] MEDS: INSULIN ASPART 100 UNIT/ML 1 ML 10 ML VIAL SQ SCH ×2 (08:20→12:32)
[2018-06-06] MEDS: AMIODARONE 100 MG TAB PO SCH (08:43)
[2018-06-06] MEDS: DOXYCYCLINE 100 MG CAP PO SCH (08:43)
[2018-06-06] MEDS: CITALOPRAM HYDROBROMIDE 10 MG TAB PO SCH (08:43)
[2018-06-06] MEDS: METOPROLOL TARTRATE 12.5 MG TAB PO SCH (08:43)
[2018-06-06] MEDS: ASPIRIN 81 MG PO SCH (08:43)
[2018-06-06] MEDS: DIMETHICONE TOPICAL SCH (08:44)
[2018-06-06] MEDS: amLODIPine 5 MG TAB PO SCH (08:44)
[2018-06-06] MEDS: APIXABAN 5 MG TAB PO SCH (08:44)
[2018-06-06] MEDS: guaiFENesin 600 MG TABLET.ER PO SCH (08:44)
[2018-06-06] MEDS: ZINC OXIDE TOPICAL SCH (08:44)
[2018-06-06 08:53] LABS: Calcium 8.8 mg/dL (8.4-10.2); Potassium 3.8 mmol/L (3.5-5.1)
[2018-06-06] MEDS ORDERED: predniSONE 10 MG TAB PO SCH (09:00)
[2018-06-06] MEDS: SYMBICORT 160-4.5 MCG INHALER INHALATION SCH (09:05)
[2018-06-06 12:02] LABS: Glucose,Whole Blood 143 mg/dL (75-99)
--- NOTE | 2018-06-06 15:02 | P.PN ---
Subjective Progress Note Date: 06/06/18 Principal diagnosis: Shortness of breath, mostly related to underlying heart failure, and a component of COPD complicated by purulent tracheal bronchitis or bronchopneumonia This is a 72-year-old white male patient was admitted to the hospital on 2018 for shortness of breath, cough, chest congestion. Patient is a resident of a senior living. He is blind, and as hearing difficulty as well. Chest x- ray on 06/03/2018 revealed changes consistent with congestive heart failure. Past medical history is significant for COPD, with chronic hypoxemic respiratory failure, CVA, diabetes mellitus, blindness, hypertension, hyperlipidemia, dementia, glaucoma, chronic anemia, degenerative disc disease. Patient has been treated with antibiotics, in the form of Zosyn, doxycycline has been added by ID service, patient is on oral prednisone, nebulized dilators , he has received a dose of IV Lasix today, he is on Mucinex, Symbicort. Blood and urine cultures were negative. Chest x-ray today showed persistent cardiomegaly, small right greater than left pleural effusions, and persistent central vascular congestion and it was felt to be worsening CHF. Lung sounds reveal scattered rhonchi. The patient states he is feeling better, he is currently on a couple liters of O2, wearing it intermittently, earlier in the day he had pulse ox of 95% on room air, he has been afebrile, hemodynamically stable, his breathing is nonlabored, proBNP was elevated at 4490, renal profile has slightly worsened, with BUN is 38, and creatinine is 1.69 Objective - Vital Signs Vital signs: Vital Signs Temp 98.0 F 06/06/18 06:52 Pulse 84 06/06/18 12:11 Resp 14 06/06/18 06:52 BP 121/84 06/06/18 06:52 Pulse Ox 95 06/06/18 06:52 Intake & Output 06/05/18 06/06/18 06/06/18 18:59 06:59 18:59 Intake Total 980 644 500 Output Total 2 1 Balance 978 644 499 Weight 65.771 kg Intake: Intake, IV Titration 100 200 100 Amount Piperacillin-Tazobactam 3 100 200 100 .375 gm In Sodium Chloride 0.9% 100 ml @ 25 mls/hr IVPB Q8H [facility] Rx#: [id number] Oral 880 444 400 Output: Stool 2 1 Other: Voiding Method Diaper Incontinent Incontinent Incontinent # Voids 1 2 - Exam GENERAL EXAM: Alert, pleasant, 72-year-old white male, blind, resting in bed, in no acute distress HEAD: Normocephalic/atraumatic. EYES: Normal reaction of pupils, equal size. Conjunctiva pink, sclera white. NOSE: Clear with pink turbinates. THROAT: No erythema or exudates. NECK: No masses, no JVD, no thyroid enlargement, no adenopathy. CHEST: No chest wall deformity. Symmetrical expansion. LUNGS: Equal air entry with scattered rhonchi CVS: Regular rate and rhythm, normal S1 and S2, no gallops, no murmurs, no rubs ABDOMEN: Soft, nontender. No hepatosplenomegaly, normal bowel sounds, no guarding or rigidity. EXTREMITIES: No clubbing, no edema, no cyanosis, 2+ pulses and upper and lower extremities. MUSCULOSKELETAL: Muscle strength and tone normal. SPINE: No scoliosis or deformity SKIN: No rashes CENTRAL NERVOUS SYSTEM: Alert and oriented -3. No focal deficits, tone is normal in all 4 extremities. PSYCHIATRIC: Alert and oriented -3. Appropriate affect. Intact judgment and insight. - Labs CBC & Chem 7: 06/04/18 08:35 06/06/18 07:53 Labs: Abnormal Lab Results - Last 24 Hours (Table) 06/05/18 06/05/18 06/06/18 Range/Units 17:08 20:08 06:59 BUN (9-20) mg/dL Creatinine (0.66-1.25) mg/dL Glucose (74-99) mg/dL POC Glucose (mg/dL) 223 H 259 H 184 H (75-99) mg/dL 06/06/18 06/06/18 Range/Units 07:53 11:50 BUN 38 H (9-20) mg/dL Creatinine 1.69 H (0.66-1.25) mg/dL Glucose 177 H (74-99) mg/dL POC Glucose (mg/dL) 143 H (75-99) mg/dL Microbiology - Last 24 Hours (Table) 06/01/18 01:35 Blood Culture - Preliminary Blood No Growth after 120 hours Assessment and Plan Plan: Assessment: #1. Dyspnea, likely multifactorial, in part related to underlying COPD exacerbation, complicated by purulent tracheobronchitis and/or bronchial pneumonia and acute exacerbation of congestive heart failure with diastolic dysfunction #2. COPD with chronic hypoxemic respiratory failure #3. History of CVA #4. Paroxysmal atrial fibrillation, on chronic anticoagulation with Eliquis, currently in sinus rhythm #5. Diabetes mellitus #6. Patient is legally blind #7. Hypertention, hyperlipidemia #8. Glaucoma #9. Chronic anemia #10. Degenerative disc disease, T12 compression fracture Plan: Antibiotics per ID service recommendations, patient is still somewhat congested , has diffuse rhonchi. Aspiration precautions, supervision and assistance with meals. From pulmonary perspective patient is improving, continue breathing treatments, oral prednisone, today's chest x-ray was reviewed with Dr. Sharma, shows worsening changes of congestive heart failure, patient was given a dose of oral Lasix by the attending physician, but he is maintaining good oxygenation on 2 L per nasal cannula, and profile has slightly worsened on today 's labs. Continue nebulized bronchodilators, follow I performed a history & physical examination of the patient and discussed their management with my nurse practitioner, Funmi Lindsey. I reviewed the nurse practitioner's note and agree with the documented findings and plan of care. Lung sounds are diffuse rhonchi. The findings and the impression was discussed with the patient. I attest to the documentation by the nurse practitioner. Time with Patient: Less than 30
[2018-06-06 15:18] VITALS: BP 161/68; PULSE 82; RESP 16; TEMP 98.1
--- NOTE | 2018-06-06 15:34 | DS ---
DISCHARGE SUMMARY DATE OF ADMISSION: 06/01/2018 DATE OF DISCHARGE: 06/06/2018 FINAL DIAGNOSES: 1. Bilateral pneumonia, suspect gram-negative organism. suspect aspiration, POA. 2. Acute congestive heart failure exacerbation from diastolic dysfunction. Ejection fraction 50%-55%. 3. Hypertensive heart disease with concentric left ventricular hypertrophy. 4. 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 5. Chronic obstructive pulmonary disease in an ex-smoker. 6. Diabetes mellitus type 2 on oral hypoglycemic, uncontrolled from steroids. 7. Hyperlipidemia. 8. Essential hypertension. 9. Chronic T12 compression fracture. 10.Urine and bowel incontinence, chronic. 11.Chronic medical debility. 12.Legally blind. The patient only perceives light. 13.Chronic medical debility, patient needs assistance for transfers. 14.Chronic kidney disease, stage III from nephrosclerosis. CONSULTATION: 1. Dr. Sharma from Pulmonary. 2. Dr. Oseguera from Infectious Disease. HOSPITAL COURSE: This patient presented what appeared to be bilateral pneumonia and also had CHF exacerbation. Last EF was 55%-60%. Patient did respond to antibiotics and steroids. Discussed with Dr. Sharma today. Patient is better going back. Tolerating a diet. Overall prognosis is guarded. PHYSICAL EXAMINATION: Temperature 98, pulse 97, respiratory rate 14, blood pressure 120/84, pulse ox 95% on room air. LUNGS: Decreased breath sounds. Occasional crackles. Patient is able answer simple questions. LABS: BUN 38, creatinine 1.69. DISCHARGE MEDICATIONS: 1. Aspirin 81 mg a day. 2. Protonix 40 mg a day. 3. Pulmicort 1 mg b.i.d. 4. Ferrous sulfate 325 p.o. daily. 5. DuoNeb q.i.d. plus q.4 p.r.n. 6. Zofran 4 mg q.8 p.r.n. 7. Norvasc 5 mg a day. 8. Zinc oxide barrier cream topical b.i.d. 9. Lactulose 10 g p.o. b.i.d. p.r.n. 10.Milk of magnesia 2500 mg q.72 hours p.r.n. 11.Lac-Hydrin 12% topical b.i.d. p.r.n. 12.Eliquis 5 mg b.i.d. 13.Lipitor 10 mg p.o. q.h.s. 14.Humalog quick pen subcu a.c. t.i.d. 15.Melatonin 3 mg q.h.s. p.r.n. 16.Actos 50 mg p.o. daily. 17.Cordarone 100 mg p.o. daily. 18.Celexa 10 mg p.o. daily. 19.Zestoretic 03/08.5 one tablet p.o. b.i.d. 20.Lopressor 12.5 p.o. b.i.d. 21.Avelox 400 mg p.o. daily for 5 days. 22.Mucinex 1200 mg q.12. 23.Prednisone 30 mg for 2 days, 20 mg for 2 days, 10 mg for 2 days, then stop. DISPOSITION: [facility]. FOLLOWUP: Follow up with Dr. Azul at [facility]. The patient's pulse ox is 95% on room air. Prognosis guarded. MMODL / IJN: [id number] /
--- NOTE | 2018-06-06 22:01 | PN ---
PROGRESS NOTE DATE OF SERVICE: 06/06/2018 REASON FOR FOLLOWUP: Pneumonia. INTERVAL HISTORY: The patient was seen on rounds early this afternoon, when the patient was afebrile and was breathing comfortably. No chest pain or abdominal pain or any diarrhea. PHYSICAL EXAMINATION: Blood pressure 161/68 with a pulse of 82, temperature 98.1. He is 97% on room air. General description is an elderly male lying in bed in no distress. RESPIRATORY SYSTEM: Unlabored breathing. Occasional wheeze. HEART: S1, S2. Regular rate and rhythm. ABDOMEN: Soft. No tenderness. LABS: Creatinine is 1.69. No CBC was done today. Blood culture negative. DIAGNOSTIC IMPRESSION AND PLAN: Patient admitted to hospital with difficulty breathing with possible component of pneumonia. Overall clinical improvement. To finish therapy with a course of oral Avelox 400 daily for 5 days. Plan of care was discussed with the patient. Continue supportive care. MMODL / IJN: [id number] /
== END 2018-06-06 18:10 | DRG 177 ==
LOC: EC 00:14 → 4SSUR 02:46
PROVIDERS: ADMIT Hospitalist; ATTEND Hospitalist
DX: J15.6 Pneumonia due to other Gram-negative bacteria (principal); I50.33 Acute on chronic diastolic (congestive) heart failure; I13.0 Hypertensive heart and chronic kidney disease with heart failure and stage 1 through stage 4 chronic kidney disease, or unspecified chronic kidney disease; I69.951 Hemiplegia and hemiparesis following unspecified cerebrovascular disease affecting right dominant side; J44.0 Chronic obstructive pulmonary disease with (acute) lower respiratory infection; J44.1 Chronic obstructive pulmonary disease with (acute) exacerbation; J96.11 Chronic respiratory failure with hypoxia; M48.54XA Collapsed vertebra, not elsewhere classified, thoracic region, initial encounter for fracture; N17.9 Acute kidney failure, unspecified; J69.0 Pneumonitis due to inhalation of food and vomit; E11.22 Type 2 diabetes mellitus with diabetic chronic kidney disease; R15.9 Full incontinence of feces; D64.9 Anemia, unspecified; F03.90 Unspecified dementia, unspecified severity, without behavioral disturbance, psychotic disturbance, mood disturbance, and anxiety; I48.0 Paroxysmal atrial fibrillation; N18.3 Chronic kidney disease, stage 3 (moderate); E78.5 Hyperlipidemia, unspecified; F32.9 Major depressive disorder, single episode, unspecified; H40.9 Unspecified glaucoma; H54.8 Legal blindness, as defined in USA; M43.10 Spondylolisthesis, site unspecified; R32 Unspecified urinary incontinence; H91.90 Unspecified hearing loss, unspecified ear; Z91.81 History of falling; Z87.891 Personal history of nicotine dependence; Z87.01 Personal history of pneumonia (recurrent); Z88.5 Allergy status to narcotic agent; Z90.49 Acquired absence of other specified parts of digestive tract; Z79.01 Long term (current) use of anticoagulants; Z79.82 Long term (current) use of aspirin; Z79.899 Other long term (current) drug therapy; Z79.4 Long term (current) use of insulin; Z83.3 Family history of diabetes mellitus; Z82.0 Family history of epilepsy and other diseases of the nervous system; W06.XXXA Fall from bed, initial encounter
CPT/HCPCS: 36415; 71045; 71046; 80048; 80053; 81001; 82550; 82553; 83036; 83605; 83880; 84484; 85025; 85610; 85730; 87040; 87086; 87502; 93005; 94640; 94760; 96365; 96368; 96375; 99285

== ENCOUNTER 2018-06-15 13:38 | Emergency (ER) | payer MEDICARE, OTHER ==
[2018-06-15 13:46] VITALS: RESP 18; TEMP 97.5
[2018-06-15 13:47] LABS: Glucose,Whole Blood 93 mg/dL (75-99)
--- NOTE | 2018-06-15 14:22 | ED ---
General Adult HPI - General Chief complaint: Syncope Stated complaint: Syncope Time Seen by Provider: 06/15/18 13:40 Source: EMS, RN notes reviewed, old records reviewed Mode of arrival: EMS Limitations: altered mental status, physical limitation - History of Present Illness Initial comments: 73-year-old male presents for evaluation of suspected syncopal episode. Patient was found at the lunch table slumped in his chair. He was taken back to his room and had return to normal by the time he arrived at his bedroom. Patient has no complaints the time my evaluation. Patient has had multiple episodes similar to this in the past according to EMS. He is legally blind, history of memory impairment. History of heart failure and CAD. Patient denies any preceding chest pain or palpitations. He has no complaints the time my evaluation and is eager to return back to the custodial. No nausea vomiting diarrhea. No fever or chills. - Related Data Home Medications Medication Instructions Recorded Confirmed Aspirin 81 mg PO DAILY 08/11/17 06/15/18 Pantoprazole [Protonix] 40 mg PO DAILY 08/20/17 06/15/18 Budesonide [Pulmicort] 1 mg INHALATION RT-BID 01/08/18 06/15/18 Ferrous Sulfate [Iron (65 MG 325 mg PO DAILY 01/08/18 06/15/18 Elemental)] Ipratropium-Albuterol Nebulize 3 ml INHALATION RT-QID 02/04/18 06/15/18 [Duoneb 0.5 mg-3 mg/3 ml Soln] Ondansetron [Zofran] 4 mg PO Q8H PRN 02/04/18 06/15/18 amLODIPine [Norvasc] 5 mg PO DAILY 02/04/18 06/15/18 Dimethicone/Zinc Oxide [Inzo Zinc 1 applic TOPICAL BID 04/17/18 06/15/18 Oxide Barrier Cream] Dimethicone/Zinc Oxide [Inzo Zinc 1 applic TOPICAL DAILY PRN 04/17/18 06/15/18 Oxide Barrier Cream] Lactulose 10 gm PO BID PRN 04/17/18 06/15/18 Magnesium Hydroxide [Milk of 2,400 mg PO Q72H PRN 04/17/18 06/15/18 Magnesia] Ammonium Lactate Lotion 1 applic TOPICAL BID PRN 05/10/18 06/15/18 [Lac-Hydrin 12% Lotion] Apixaban [Eliquis] 5 mg PO BID 05/10/18 06/15/18 Atorvastatin Calcium [Lipitor] 10 mg PO HS 05/10/18 06/15/18 Insulin Lispro [humaLOG Kwikpen] See Protocol SQ AC-TID 05/10/18 06/15/18 Melatonin 3 mg PO HS PRN 05/10/18 06/15/18 Pioglitazone HCl [Actos] 15 mg PO DAILY 05/10/18 06/15/18 Acetaminophen [Tylenol 8 Hour] 650 mg PO Q6H PRN 06/15/18 06/15/18 Previous Rx's Medication Instructions Recorded Amiodarone [Cordarone] 100 mg PO DAILY tab 05/13/18 Citalopram Hydrobromide [CeleXA] 10 mg PO DAILY tab 06/06/18 Furosemide [Lasix] 40 mg PO MOTH #1 tablet 06/06/18 Lisinopril-Hctz 10-12.5 mg 1 tab PO BID #1 tab 06/06/18 [Zestoretic 10-12.5] Metoprolol Tartrate [Lopressor] 12.5 mg PO BID #1 06/06/18 guaiFENesin [Mucinex] 1,200 mg PO Q12HR tablet.er 06/06/18 Allergies Allergy/AdvReac Type Severity Reaction Status Date / Time hydrocodone bitartrate AdvReac Nausea Verified 06/15/18 13:44 [From Vicodin] Review of Systems ROS Statement: Those systems with pertinent positive or pertinent negative responses have been documented in the HPI. ROS Other: All systems not noted in ROS Statement are negative. 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 DDD, hx of T12 compression fx, spondylothesis, urinary/bowel incontinence, bed bound w/ assist to chair per [facility]. A+O to person/place = baseline, cholecystitis, anemia, hx of respiratory failure w/ hypoxia. History of Any Multi-Drug Resistant Organisms: None Reported Past Surgical History: Cholecystectomy Additional Past Surgical History / Comment(s): Laparoscopic cholecystectomy Past Anesthesia/Blood Transfusion Reactions: No Reported Reaction Past Psychological History: Depression Smoking Status: Former smoker Past Alcohol Use History: None Reported Past Drug Use History: None Reported - Past Family History Father Family Medical History: Diabetes Mellitus Mother Family Medical History: Dementia, Diabetes Mellitus Brother(s) Family Medical History: Unable to Obtain General Exam Limitations: altered mental status, physical limitation General appearance: alert, in no apparent distress Head exam: Present: atraumatic Eye exam: Present: other (Bilateral corneal clouding) ENT exam: Present: mucous membranes dry Neck exam: Present: normal inspection. Absent: tenderness, meningismus Respiratory exam: Present: normal lung sounds bilaterally. Absent: respiratory distress Cardiovascular Exam: Present: regular rate, normal rhythm GI/Abdominal exam: Present: soft. Absent: distended, tenderness, guarding Extremities exam: Present: normal inspection, normal capillary refill. Absent: pedal edema Neurological exam: Present: alert. Absent: oriented X3 (2), motor sensory deficit Psychiatric exam: Present: agitated Skin exam: Present: warm, dry, intact. Absent: cyanosis, diaphoretic Course Vital Signs 06/15/18 13:42 Temperature 97.5 F L Pulse Rate 60 Respiratory 18 Rate Blood Pressure 133/60 O2 Sat by Pulse 99 Oximetry EKG Findings - EKG Comments: EKG Findings:: EKG: Normal sinus rhythm, right bundle branch block, ventricular rate is 60, SC interval 172, QRS duration 152, QTC 488, no ST segment changes, similar compared to previous EKGs. Medical Decision Making - Medical Decision Making 73-year-old male from custodial with suspected syncopal episode. Patient believes he may have just fallen asleep. There was no reported history of arrhythmia or abnormal vital signs. Patient had returned to baseline prior to arrival in the emergency department. Vital signs are stable in the emergency department. EKG is nonischemic, normal sinus rhythm. Patient has no complaints and is eager for discharge. - Lab Data Result diagrams: 06/15/18 14:00 06/15/18 14:00 Lab Results 06/15/18 06/15/18 06/15/18 Range/Units 13:44 14:00 14:00 WBC 9.7 (3.8-10.6) k/uL RBC 3.74 L (4.30-5.90) m/uL Hgb 11.2 L (13.0-17.5) gm/dL Hct 34.8 L (39.0-53.0) % MCV 93.1 (80.0-100.0) fL MCH 29.9 (25.0-35.0) pg MCHC 32.2 (31.0-37.0) g/dL RDW 13.1 (11.5-15.5) % Plt Count 239 (150-450) k/uL Neutrophils % 57 % Lymphocytes % 29 % Monocytes % 11 % Eosinophils % 1 % Basophils % 0 % Neutrophils # 5.5 (1.3-7.7) k/uL Lymphocytes # 2.8 (1.0-4.8) k/uL Monocytes # 1.1 H (0-1.0) k/uL Eosinophils # 0.1 (0-0.7) k/uL Basophils # 0.0 (0-0.2) k/uL Sodium 138 (137-145) mmol/L Potassium 4.6 (3.5-5.1) mmol/L Chloride 104 (98-107) mmol/L Carbon Dioxide 24 (22-30) mmol/L Anion Gap 10 mmol/L BUN 34 H (9-20) mg/dL Creatinine 1.69 H (0.66-1.25) mg/dL Est GFR (CKD-EPI)AfAm 45 (>60 ml/min/1.73 sqM) Est GFR (CKD-EPI)NonAf 39 (>60 ml/min/1.73 sqM) Glucose 83 (74-99) mg/dL POC Glucose (mg/dL) 93 (75-99) mg/dL POC Glu [employer] ID [employer] Fish Calcium 8.8 (8.4-10.2) mg/dL Total Bilirubin 0.9 (0.2-1.3) mg/dL AST 19 (17-59) U/L ALT 35 (21-72) U/L Alkaline Phosphatase 77 (38-126) U/L Total Protein 6.2 L (6.3-8.2) g/dL Albumin 3.6 (3.5-5.0) g/dL Disposition Clinical Impression: Syncope Disposition: HOME SELF-CARE Condition: Fair Instructions: Syncope (ED) Is patient prescribed a controlled substance at d/c from ED?: No Referrals: Leonides Azul MD [Primary Care Provider] - 1-2 days Time of Disposition: 15:18
[2018-06-15 14:25] LABS: Basophils % (A) 0 %; Eosinophils # (A) 0.1 k/uL (0-0.7); Eosinophils % (A) 1 %; HCT 34.8 % (39.0-53.0); HGB 11.2 gm/dL (13.0-17.5); Lymphocytes # (A) 2.8 k/uL (1.0-4.8); Lymphocytes % (A) 29 %; MCH 29.9 pg (25.0-35.0); MCHC 32.2 g/dL (31.0-37.0); MCV 93.1 fL (80.0-100.0); Mean Platelet Volume 7.9; Monocytes # (A) 1.1 k/uL (0-1.0); Monocytes % (A) 11 %; Neutrophils # (A) 5.5 k/uL (1.3-7.7); Neutrophils % (A) 57 %; Platelet Count 239 k/uL (150-450); RBC 3.74 m/uL (4.30-5.90); RDW 13.1 % (11.5-15.5); WBC 9.7 k/uL (3.8-10.6)
[2018-06-15 14:28] LABS: Albumin 3.6 g/dL (3.5-5.0); Calcium 8.8 mg/dL (8.4-10.2); Potassium 4.6 mmol/L (3.5-5.1); Total Bilirubin 0.9 mg/dL (0.2-1.3); Total Protein 6.2 g/dL (6.3-8.2)
[2018-06-15 15:19] VITALS: BP 130/58; PULSE 63
[2018-06-15 15:19] LABS: Glucose,Whole Blood 96 mg/dL (75-99)
== END 2018-06-15 16:15 | disposition home or self-care (01) ==
LOC: EC 13:38
DX: R55 Syncope and collapse (principal); R45.1 Restlessness and agitation; R41.82 Altered mental status, unspecified; H54.8 Legal blindness, as defined in USA; I48.91 Unspecified atrial fibrillation; J44.9 Chronic obstructive pulmonary disease, unspecified; E78.5 Hyperlipidemia, unspecified; E11.9 Type 2 diabetes mellitus without complications; I11.0 Hypertensive heart disease with heart failure; I50.9 Heart failure, unspecified; I25.10 Atherosclerotic heart disease of native coronary artery without angina pectoris; I69.351 Hemiplegia and hemiparesis following cerebral infarction affecting right dominant side; D64.9 Anemia, unspecified; H40.9 Unspecified glaucoma; Z87.891 Personal history of nicotine dependence; Z88.5 Allergy status to narcotic agent; Z79.01 Long term (current) use of anticoagulants; Z79.4 Long term (current) use of insulin; Z79.51 Long term (current) use of inhaled steroids; Z79.82 Long term (current) use of aspirin; Z79.899 Other long term (current) drug therapy; Z87.39 Personal history of other diseases of the musculoskeletal system and connective tissue; Z87.19 Personal history of other diseases of the digestive system; Z74.01 Bed confinement status; Z81.8 Family history of other mental and behavioral disorders
CPT/HCPCS: 36415; 80053; 85025; 93005; 99285

== ENCOUNTER 2018-06-18 21:17 | Emergency (ER) | payer MEDICARE, OTHER ==
--- NOTE | 2018-06-18 22:04 | ED ---
General Adult HPI - General Chief complaint: Altered Mental Status Stated complaint: Altered Mental Status Time Seen by Provider: 06/18/18 22:04 Source: EMS, RN notes reviewed, old records reviewed Mode of arrival: EMS Limitations: altered mental status - Related Data Home Medications Medication Instructions Recorded Confirmed Aspirin 81 mg PO DAILY 08/11/17 06/18/18 Pantoprazole [Protonix] 40 mg PO DAILY 08/20/17 06/18/18 Budesonide [Pulmicort] 1 mg INHALATION RT-BID 01/08/18 06/18/18 Ferrous Sulfate [Iron (65 MG 325 mg PO DAILY 01/08/18 06/18/18 Elemental)] Ipratropium-Albuterol Nebulize 3 ml INHALATION RT-QID 02/04/18 06/18/18 [Duoneb 0.5 mg-3 mg/3 ml Soln] Ondansetron [Zofran] 4 mg PO Q8H PRN 02/04/18 06/18/18 amLODIPine [Norvasc] 5 mg PO DAILY 02/04/18 06/18/18 Dimethicone/Zinc Oxide [Inzo Zinc 1 applic TOPICAL DAILY PRN 04/17/18 06/18/18 Oxide Barrier Cream] Lactulose 10 gm PO BID PRN 04/17/18 06/18/18 Magnesium Hydroxide [Milk of 2,400 mg PO Q72H PRN 04/17/18 06/18/18 Magnesia] Ammonium Lactate Lotion 1 applic TOPICAL BID PRN 05/10/18 06/18/18 [Lac-Hydrin 12% Lotion] Apixaban [Eliquis] 5 mg PO BID 05/10/18 06/18/18 Atorvastatin Calcium [Lipitor] 10 mg PO HS 05/10/18 06/18/18 Insulin Lispro [humaLOG Kwikpen] See Protocol SQ AC-TID 05/10/18 06/18/18 Melatonin 3 mg PO HS PRN 05/10/18 06/18/18 Pioglitazone HCl [Actos] 15 mg PO DAILY 05/10/18 06/18/18 Metoprolol Tartrate [Lopressor] 12.5 mg PO BID 06/18/18 06/18/18 Previous Rx's Medication Instructions Recorded Amiodarone [Cordarone] 100 mg PO DAILY tab 05/13/18 Citalopram Hydrobromide [CeleXA] 10 mg PO DAILY tab 06/06/18 Furosemide [Lasix] 40 mg PO MOTH #1 tablet 06/06/18 Lisinopril-Hctz 10-12.5 mg 1 tab PO BID #1 tab 06/06/18 [Zestoretic 10-12.5] guaiFENesin [Mucinex] 1,200 mg PO Q12HR tablet.er 06/06/18 Allergies Allergy/AdvReac Type Severity Reaction Status Date / Time hydrocodone bitartrate AdvReac Nausea Verified 06/18/18 21:52 [From Vicodin] Review of Systems ROS Statement: Those systems with pertinent positive or pertinent negative responses have been documented in the HPI. ROS Other: All systems not noted in ROS Statement are negative. 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 DDD, hx of T12 compression fx, spondylothesis, urinary/bowel incontinence, bed bound w/ assist to chair per [facility]. A+O to person/place = baseline, cholecystitis, anemia, hx of respiratory failure w/ hypoxia. History of Any Multi-Drug Resistant Organisms: None Reported Past Surgical History: Cholecystectomy Additional Past Surgical History / Comment(s): Laparoscopic cholecystectomy Past Anesthesia/Blood Transfusion Reactions: No Reported Reaction Past Psychological History: Depression Smoking Status: Former smoker Past Alcohol Use History: None Reported Past Drug Use History: None Reported - Past Family History Father Family Medical History: Diabetes Mellitus Mother Family Medical History: Dementia, Diabetes Mellitus Brother(s) Family Medical History: Unable to Obtain General Exam Limitations: altered mental status Course Vital Signs 06/18/18 06/18/18 06/18/18 21:39 22:23 23:29 Temperature 97.4 F L Pulse Rate 55 L 57 L Pulse Rate [ 55 L Hat And Cap Drying Room Attendant ] Respiratory 15 19 Rate Blood Pressure 141/55 123/47 O2 Sat by Pulse 100 100 Oximetry 06/19/18 01:53 Temperature Pulse Rate 62 Pulse Rate [ Hat And Cap Drying Room Attendant ] Respiratory 20 Rate Blood Pressure 123/48 O2 Sat by Pulse 100 Oximetry Medical Decision Making - Medical Decision Making Dictation was produced using [employer] dictation software. please excuse any grammatical, word or spelling errors. Chief Complaint: 73-year-old male sent in from [facility] for altered mental status and hypotension. History of Present Illness: 73-year-old male who is baseline pain on times one. According to nurse who received report from EMS he was transferred for low blood pressure and altered consciousness. Patient is known to our ER. He is normally alert and oriented 1 at baseline. He is legally blind. Patient has multiple comorbidities. Patient has no complaints at this time. He is a poor historian. He does not know he is in emergency department. Denies any pain or has no complaints. According to nurse received report from EMS he had a episode of low blood pressure and altered LOC. Upon EMS arrival patient has normal blood pressure. He also had stable vital signs. She does not know why he is here. There is no family for more detailed HPI. The ROS documented in this emergency department record has been reviewed and confirmed by me. Those systems with pertinent positive or negative responses have been documented in the HPI. All other systems are other negative and/or noncontributory. PHYSICAL EXAM: General Impression: Alert and oriented x1/3, not in acute distress HEENT: Bilateral corneal opacity Cardiovascular: Heart regular rate and rhythm, S1&S2 audible, no murmurs, rubs or gallops Chest: Lungs clear to auscultation bilaterally, no rhonchi, no wheeze, no rales Abdomen: Bowel sounds present, abdomen soft, non-tender, non-distended, no organomegaly Musculoskeletal: Pulses present and equal in all extremities, no peripheral edema Motor: Moves all tremors grossly Neurological:no focal motor or sensory deficits noted Skin: Intact with no visualized rashes Psych: Normal affect and mood ED course: 73-year-old male transferred from [facility] for altered mental status and low blood pressure. EMS on arrival report stable vital signs. EMS was fully with patient and he is typically alert and oriented 1/4 he has multiple comorbidities. Vital signs upon arrival are within acceptable limits. Patient is well-appearing. EKGs benign.Extensive work up was performed. CBC, coag panel, blood gases, metabolic panel and urinalysis were all within acceptable limits. Computed tomography scan of the head and chest x- ray shows no acute processes. There shows improvement of chest x-ray shows clearing of pneumonia. Patient was monitored in the emergency department for several hours with normal blood pressures. Patient is not hypoxic. She reports he feels well. At this point patient appears to be at baseline. I believe patient is clear for discharge back to [facility]. Recommend patient follow up with [facility] physician tomorrow. EKG interpretation: Ventricular rate 55, sinus bradycardia, KS interval 166, QS 150, QTc 495, right bundle branch block. No KS prolongation, no QTC prolongation , no ST or T-wave changes noted. EKG compared to Jung 2018 showing no changes. Overall, this EKG is unremarkable - Lab Data Result diagrams: 06/18/18 22:19 06/18/18 22:42 Lab Results 06/18/18 06/18/18 06/18/18 Range/Units 22:19 22:42 22:42 WBC 6.1 (3.8-10.6) k/uL RBC 3.55 L (4.30-5.90) m/uL Hgb 10.4 L (13.0-17.5) gm/dL Hct 33.1 L (39.0-53.0) % MCV 93.4 (80.0-100.0) fL MCH 29.3 (25.0-35.0) pg MCHC 31.4 (31.0-37.0) g/dL RDW 13.1 (11.5-15.5) % Plt Count 177 (150-450) k/uL Neutrophils % 71 % Lymphocytes % 17 % Monocytes % 7 % Eosinophils % 1 % Basophils % 0 % Neutrophils # 4.3 (1.3-7.7) k/uL Lymphocytes # 1.0 (1.0-4.8) k/uL Monocytes # 0.4 (0-1.0) k/uL Eosinophils # 0.1 (0-0.7) k/uL Basophils # 0.0 (0-0.2) k/uL PT 10.9 (9.0-12.0) sec INR 1.0 (<1.2) VBG pH 7.45 H (7.31-7.41) VBG pCO2 36 L (37-51) mmHg VBG HCO3 25 (24-28) mmol/L Sodium (137-145) mmol/L Potassium (3.5-5.1) mmol/L Chloride (98-107) mmol/L Carbon Dioxide (22-30) mmol/L Anion Gap mmol/L BUN (9-20) mg/dL Creatinine (0.66-1.25) mg/dL Est GFR (CKD-EPI)AfAm (>60 ml/min/1.73 sqM) Est GFR (CKD-EPI)NonAf (>60 ml/min/1.73 sqM) Glucose (74-99) mg/dL Calcium (8.4-10.2) mg/dL Magnesium (1.6-2.3) mg/dL Total Bilirubin (0.2-1.3) mg/dL AST (17-59) U/L ALT (21-72) U/L Alkaline Phosphatase (38-126) U/L Ammonia (<30) umol/L Troponin I (0.000-0.034) ng/mL NT-Pro-B Natriuret Pep pg/mL Total Protein (6.3-8.2) g/dL Albumin (3.5-5.0) g/dL Lipase (23-300) U/L Urine Color Urine Appearance (Clear) Urine pH (5.0-8.0) Ur Specific [place] (1.001-1.035) Urine Protein (Negative) Urine Glucose (UA) (Negative) Urine Ketones (Negative) Urine Blood (Negative) Urine Nitrite (Negative) Urine Bilirubin (Negative) Urine Urobilinogen (<2.0) mg/dL Ur Leukocyte Esterase (Negative) Urine RBC (0-5) /hpf Urine WBC (0-5) /hpf Ur Squamous Epith Cells (0-4) /hpf Amorphous Sediment (None) /hpf Hyaline Casts (0-2) /lpf Urine Mucus (None) /hpf 06/18/18 06/18/18 06/18/18 Range/Units 22:42 22:42 22:42 WBC (3.8-10.6) k/uL RBC (4.30-5.90) m/uL Hgb (13.0-17.5) gm/dL Hct (39.0-53.0) % MCV (80.0-100.0) fL MCH (25.0-35.0) pg MCHC (31.0-37.0) g/dL RDW (11.5-15.5) % Plt Count (150-450) k/uL Neutrophils % % Lymphocytes % % Monocytes % % Eosinophils % % Basophils % % Neutrophils # (1.3-7.7) k/uL Lymphocytes # (1.0-4.8) k/uL Monocytes # (0-1.0) k/uL Eosinophils # (0-0.7) k/uL Basophils # (0-0.2) k/uL PT (9.0-12.0) sec INR (<1.2) VBG pH (7.31-7.41) VBG pCO2 (37-51) mmHg VBG HCO3 (24-28) mmol/L Sodium 136 L (137-145) mmol/L Potassium 4.9 (3.5-5.1) mmol/L Chloride 103 (98-107) mmol/L Carbon Dioxide 25 (22-30) mmol/L Anion Gap 8 mmol/L BUN 33 H (9-20) mg/dL Creatinine 1.79 H (0.66-1.25) mg/dL Est GFR (CKD-EPI)AfAm 42 (>60 ml/min/1.73 sqM) Est GFR (CKD-EPI)NonAf 36 (>60 ml/min/1.73 sqM) Glucose 158 H (74-99) mg/dL Calcium 8.4 (8.4-10.2) mg/dL Magnesium 2.0 (1.6-2.3) mg/dL Total Bilirubin 0.7 (0.2-1.3) mg/dL AST 23 (17-59) U/L ALT 36 (21-72) U/L Alkaline Phosphatase 81 (38-126) U/L Ammonia <9 (<30) umol/L Troponin I (0.000-0.034) ng/mL NT-Pro-B Natriuret Pep 2290 pg/mL Total Protein 5.7 L (6.3-8.2) g/dL Albumin 3.2 L (3.5-5.0) g/dL Lipase 213 (23-300) U/L Urine Color Urine Appearance (Clear) Urine pH (5.0-8.0) Ur Specific [place] (1.001-1.035) Urine Protein (Negative) Urine Glucose (UA) (Negative) Urine Ketones (Negative) Urine Blood (Negative) Urine Nitrite (Negative) Urine Bilirubin (Negative) Urine Urobilinogen (<2.0) mg/dL Ur Leukocyte Esterase (Negative) Urine RBC (0-5) /hpf Urine WBC (0-5) /hpf Ur Squamous Epith Cells (0-4) /hpf Amorphous Sediment (None) /hpf Hyaline Casts (0-2) /lpf Urine Mucus (None) /hpf 06/18/18 06/19/18 Range/Units 22:42 01:47 WBC (3.8-10.6) k/uL RBC (4.30-5.90) m/uL Hgb (13.0-17.5) gm/dL Hct (39.0-53.0) % MCV (80.0-100.0) fL MCH (25.0-35.0) pg MCHC (31.0-37.0) g/dL RDW (11.5-15.5) % Plt Count (150-450) k/uL Neutrophils % % Lymphocytes % % Monocytes % % Eosinophils % % Basophils % % Neutrophils # (1.3-7.7) k/uL Lymphocytes # (1.0-4.8) k/uL Monocytes # (0-1.0) k/uL Eosinophils # (0-0.7) k/uL Basophils # (0-0.2) k/uL PT (9.0-12.0) sec INR (<1.2) VBG pH (7.31-7.41) VBG pCO2 (37-51) mmHg VBG HCO3 (24-28) mmol/L Sodium (137-145) mmol/L Potassium (3.5-5.1) mmol/L Chloride (98-107) mmol/L Carbon Dioxide (22-30) mmol/L Anion Gap mmol/L BUN (9-20) mg/dL Creatinine (0.66-1.25) mg/dL Est GFR (CKD-EPI)AfAm (>60 ml/min/1.73 sqM) Est GFR (CKD-EPI)NonAf (>60 ml/min/1.73 sqM) Glucose (74-99) mg/dL Calcium (8.4-10.2) mg/dL Magnesium (1.6-2.3) mg/dL Total Bilirubin (0.2-1.3) mg/dL AST (17-59) U/L ALT (21-72) U/L Alkaline Phosphatase (38-126) U/L Ammonia (<30) umol/L Troponin I 0.016 (0.000-0.034) ng/mL NT-Pro-B Natriuret Pep pg/mL Total Protein (6.3-8.2) g/dL Albumin (3.5-5.0) g/dL Lipase (23-300) U/L Urine Color Yellow Urine Appearance Clear (Clear) Urine pH 5.0 (5.0-8.0) Ur Specific [place] 1.011 (1.001-1.035) Urine Protein Negative (Negative) Urine Glucose (UA) Negative (Negative) Urine Ketones Negative (Negative) Urine Blood Trace H (Negative) Urine Nitrite Negative (Negative) Urine Bilirubin Negative (Negative) Urine Urobilinogen <2.0 (<2.0) mg/dL Ur Leukocyte Esterase Negative (Negative) Urine RBC 3 (0-5) /hpf Urine WBC 1 (0-5) /hpf Ur Squamous Epith Cells <1 (0-4) /hpf Amorphous Sediment Rare H (None) /hpf Hyaline Casts 7 H (0-2) /lpf Urine Mucus Rare H (None) /hpf Disposition Clinical Impression: Wellness examination Disposition: HOME SELF-CARE Condition: Good Instructions (If sedation given, give patient instructions): Altered Mental Status (ED) Is patient prescribed a controlled substance at d/c from ED?: No Referrals: Leonides Azul MD [Primary Care Provider] - 1-2 days Time of Disposition: 02:32
[2018-06-18 22:39] LABS: Basophils % (A) 0 %; Eosinophils # (A) 0.1 k/uL (0-0.7); Eosinophils % (A) 1 %; HCT 33.1 % (39.0-53.0); HGB 10.4 gm/dL (13.0-17.5); Lymphocytes % (A) 17 %; MCH 29.3 pg (25.0-35.0); MCHC 31.4 g/dL (31.0-37.0); MCV 93.4 fL (80.0-100.0); Monocytes # (A) 0.4 k/uL (0-1.0); Monocytes % (A) 7 %; Neutrophils # (A) 4.3 k/uL (1.3-7.7); Neutrophils % (A) 71 %; Platelet Count 177 k/uL (150-450); RBC 3.55 m/uL (4.30-5.90); RDW 13.1 % (11.5-15.5); WBC 6.1 k/uL (3.8-10.6)
--- NOTE | 2018-06-18 22:55 | XR ---
EXAMINATION TYPE: XR chest 2V DATE OF EXAM: 06/18/2018 COMPARISON: 06/06/2018 HISTORY: Altered mental status. Chest pain TECHNIQUE: Frontal and lateral views of the chest are obtained. FINDINGS: There is no heart failure nor confluent pneumonic infiltrate. There is slight blunting of the posterior costophrenic angles. Thoracic aorta is atheromatous. There are no hilar masses. There a re chest leads. IMPRESSION: Small pleural effusions or pleural reaction unchanged compared to old exam. No heart judd lure seen. There is clearing of right lower lobe posterior pneumonia compared to last exam.
[2018-06-18 23:06] LABS: VBG PH 7.45 (7.31-7.41)
[2018-06-18 23:10] LABS: Prothrombin Time 10.9 sec (9.0-12.0)
[2018-06-18 23:16] LABS: Albumin 3.2 g/dL (3.5-5.0); Calcium 8.4 mg/dL (8.4-10.2); Potassium 4.9 mmol/L (3.5-5.1); Total Bilirubin 0.7 mg/dL (0.2-1.3); Total Protein 5.7 g/dL (6.3-8.2)
--- NOTE | 2018-06-19 01:26 | CT ---
EXAMINATION TYPE: CT brain wo con DATE OF EXAM: 06/18/2018 COMPARISON: 05/10/2018 HISTORY: ams CT DLP: 1134.4 mGycm Automated exposure control for dose reduction was used. FINDINGS: There is diffuse cerebral cortical atrophy. There is moderate patchy hypodensity in the periventricul ar white matter. There is no mass effect nor midline shift. There is no sign of intracranial hemorrha ge. The calvarium is intact. There is small mucus retention cyst left maxillary sinus. IMPRESSION: CEREBRAL ATROPHY. CHRONIC SMALL VESSEL ISCHEMIA. NO ACUTE INTRACRANIAL ABNORMALITY. NO CHANGE.
[2018-06-19 02:17] LABS: Amorphous Sediment,Urine Rare /hpf; Appearance,Urine Clear (Clear); Bilirubin,Urine Negative (Negative); Blood,Urine Trace (Negative); Color,Urine Yellow; Glucose,Urine (UA) Negative (Negative); Hyaline Casts,Urine 7 /lpf (0-2); Ketones,Urine Negative (Negative); Leukocyte Esterase,Urine Negative (Negative); Mucus,Urine Rare /hpf; Nitrite,Urine Negative (Negative); Protein,Urine Negative (Negative); RBC,Urine 3 /hpf (0-5); Specific Gravity,Urine 1.011 (1.001-1.035); Squamous Epithelial Cell,Urine <1 /hpf (0-4); Urobilinogen,Urine <2.0 mg/dL (<2.0)
[2018-06-19 02:54] VITALS: BP 127/59; PULSE 55; RESP 18; TEMP 98
== END 2018-06-19 03:08 | disposition home or self-care (01) ==
LOC: EC 21:17
DX: Z00.00 Encounter for general adult medical examination without abnormal findings (principal); R41.82 Altered mental status, unspecified; R03.1 Nonspecific low blood-pressure reading; H54.8 Legal blindness, as defined in USA; I48.91 Unspecified atrial fibrillation; J44.9 Chronic obstructive pulmonary disease, unspecified; E11.9 Type 2 diabetes mellitus without complications; E78.5 Hyperlipidemia, unspecified; I10 Essential (primary) hypertension; Z86.73 Personal history of transient ischemic attack (TIA), and cerebral infarction without residual deficits; Z87.891 Personal history of nicotine dependence; Z90.49 Acquired absence of other specified parts of digestive tract; Z79.01 Long term (current) use of anticoagulants; Z79.4 Long term (current) use of insulin; Z79.51 Long term (current) use of inhaled steroids; Z79.82 Long term (current) use of aspirin; Z79.899 Other long term (current) drug therapy; Z88.5 Allergy status to narcotic agent
CPT/HCPCS: 36415; 70450; 71046; 80053; 81001; 82140; 82803; 83690; 83735; 83880; 84484; 85025; 85610; 87040; 99285

== ENCOUNTER 2018-07-24 07:27 | Observation (INO) | payer MEDICARE, OTHER ==
[2018-07-24] MEDS ORDERED: SODIUM CHLORIDE 0.9% 500 ML 500 ML IV STA (07:37)
--- NOTE | 2018-07-24 07:43 | ED ---
General Adult HPI - General Chief complaint: Syncope Stated complaint: CHEST PAIN Time Seen by Provider: 07/24/18 07:27 Source: EMS, RN notes reviewed Mode of arrival: EMS Limitations: no limitations - History of Present Illness Initial comments: This is a 73-year-old male who was a past medical history significant for memory impairment and has a guardian. Patient is legally blind. Patient has diabetes hypertension high cholesterol history of atrial fibrillation and history of previous stroke. Patient was up with staff in a chair when he had a syncopal episode and according to staff was unresponsive for approximately 5 minutes EMS stated this happened to him multiple times in the past. Patient is awake and alert to self and place. Patient does not have any complaints at this time he denies headaches so EMS stated initially he mentioned he had a headache. Patient denies any chest pain difficulty breathing shortness of breath per patient denies any abdominal pain. Patient denies any nausea or vomiting. Patient denies any recent fever chills or cough. There is no family member or caregiver with the patient. I'm unsure how accurate this history is from the patient because of his impaired memory. - Related Data Home Medications Medication Instructions Recorded Confirmed Aspirin 81 mg PO DAILY@0900 08/11/17 07/24/18 Pantoprazole [Protonix] 40 mg PO DAILY@0900 08/20/17 07/24/18 Budesonide [Pulmicort] 1 mg INHALATION RT-BID@0900,209901/08/18 07/24/18 Ferrous Sulfate [Iron (65 MG 325 mg PO DAILY@0900 01/08/18 07/24/18 Elemental)] Ipratropium-Albuterol Nebulize 3 ml INHALATION 02/04/18 07/24/18 [Duoneb 0.5 mg-3 mg/3 ml Soln] RT-QID@0900,,17,21 Ondansetron [Zofran] 4 mg PO Q8H PRN 02/04/18 07/24/18 Dimethicone/Zinc Oxide [Inzo Zinc 1 applic TOPICAL DAILY PRN 04/17/18 07/24/18 Oxide Barrier Cream] Lactulose 10 gm PO BID@0900,2100 04/17/18 07/24/18 Magnesium Hydroxide [Milk of 2,400 mg PO Q72H PRN 04/17/18 07/24/18 Magnesia] Ammonium Lactate Lotion 1 applic TOPICAL Q12H PRN 05/10/18 07/24/18 [Lac-Hydrin 12% Lotion] Apixaban [Eliquis] 5 mg PO BID@0900,209905/10/18 07/24/18 Atorvastatin Calcium [Lipitor] 10 mg PO HS@209905/10/18 07/24/18 Insulin Lispro [humaLOG Kwikpen] See Protocol SQ AC-TID 05/10/18 07/24/18 Melatonin 3 mg PO HS PRN 05/10/18 07/24/18 Pioglitazone HCl [Actos] 15 mg PO DAILY@0900 05/10/18 07/24/18 Metoprolol Tartrate [Lopressor] 12.5 mg PO BID@0900,209906/18/18 07/24/18 Amiodarone [Cordarone] 100 mg PO DAILY@0900 07/24/18 07/24/18 Citalopram Hydrobromide [CeleXA] 10 mg PO DAILY@0907/24/18 07/24/18 Ipratropium-Albuterol Nebulize 3 ml INHALATION RT-Q4H PRN 07/24/18 07/24/18 [Duoneb 0.5 mg-3 mg/3 ml Soln] Lactose-Reduced Food [Ensure Plus] 120 ml PO TID@1000,1500,199907/24/18 Lisinopril-Hctz 10-12.5 mg 1 tab PO BID@0900,209907/24/18 07/24/18 [Zestoretic 10-12.5] guaiFENesin [Mucinex] 1,200 mg PO Q12HR@0900,209907/24/18 07/24/18 Previous Rx's Medication Instructions Recorded Furosemide [Lasix] 40 mg PO MOTH #1 tablet 06/06/18 Allergies Allergy/AdvReac Type Severity Reaction Status Date / Time hydrocodone bitartrate AdvReac Nausea Verified 07/24/18 07:39 [From Vicodin] Review of Systems ROS Statement: Those systems with pertinent positive or pertinent negative responses have been documented in the HPI. ROS Other: All systems not noted in ROS Statement are negative. 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 DDD, hx of T12 compression fx, spondylothesis, urinary/bowel incontinence, bed bound w/ assist to chair per [facility]. A+O to person/place = baseline, cholecystitis, anemia, hx of respiratory failure w/ hypoxia. History of Any Multi-Drug Resistant Organisms: None Reported Past Surgical History: Cholecystectomy Additional Past Surgical History / Comment(s): Laparoscopic cholecystectomy Past Anesthesia/Blood Transfusion Reactions: No Reported Reaction Past Psychological History: Depression Smoking Status: Former smoker Past Alcohol Use History: None Reported Past Drug Use History: None Reported - Past Family History Father Family Medical History: Diabetes Mellitus Mother Family Medical History: Dementia, Diabetes Mellitus Brother(s) Family Medical History: Unable to Obtain General Exam - General Exam Comments Initial Comments: GENERAL: Patient is well-developed and well-nourished. Patient is nontoxic and well- hydrated and is in no acute distress. ENT: Neck is soft and supple. No significant lymphadenopathy is noted. Oropharynx is clear. Moist mucous membranes. Neck has full range of motion without eliciting any pain. EYES: The sclera were anicteric and conjunctiva were pink and moist. Extraocular movements were intact and pupils were equal round and reactive to light. Eyelids were unremarkable. PULMONARY: Unlabored respirations. Good breath sounds bilaterally. No audible rales rhonchi or wheezing was noted. CARDIOVASCULAR: There is a regular rate and rhythm without any murmurs gallops or rubs. ABDOMEN: Soft and nontender with normal bowel sounds. No palpable organomegaly was noted. There is no palpable pulsatile mass. SKIN: Skin is clear with no lesions or rashes and otherwise unremarkable. NEUROLOGIC: Patient is alert and oriented 2. I do not see any gross drooping of face or eyelids however patient will not follow all commands cranial nerves the time.. Patient has good air pollution compliance inspector bilaterally has dorsal and plantar flexion equal bilaterally. It is weak but according to EMS he does not ambulate normally Normal speech, volume and content. MUSCULOSKELETAL: Normal extremities with adequate strength and full range of motion. No lower extremity swelling or edema. No calf tenderness. LYMPHATICS: No significant lymphadenopathy is noted PSYCHIATRIC: A call to assess secondary to his impairment Limitations: no limitations Course Vital Signs 07/24/18 07/24/18 07/24/18 07:29 07:35 08:35 Temperature 97.8 F Pulse Rate 71 Pulse Rate [ 67 Environmental Health Aide ] Respiratory 18 Rate Blood Pressure 133/51 O2 Sat by Pulse 98 Oximetry Medical Decision Making - Medical Decision Making EKG shows normal sinus rhythm at 70 bpm UT interval 284 QRS is 154 Q-T intervals 452 QTC is 480. Patient's EKG shows a right bundle miguel angel block. - Lab Data Result diagrams: 07/24/18 07:45 07/24/18 07:45 Lab Results 07/24/18 07/24/18 07/24/18 Range/Units 07:45 07:45 07:45 WBC 8.2 (3.8-10.6) k/uL RBC 3.35 L (4.30-5.90) m/uL Hgb 9.8 L (13.0-17.5) gm/dL Hct 31.5 L (39.0-53.0) % MCV 93.8 (80.0-100.0) fL MCH 29.1 (25.0-35.0) pg MCHC 31.0 (31.0-37.0) g/dL RDW 13.7 (11.5-15.5) % Plt Count 336 (150-450) k/uL Neutrophils % 64 % Lymphocytes % 24 % Monocytes % 7 % Eosinophils % 2 % Basophils % 1 % Neutrophils # 5.2 (1.3-7.7) k/uL Lymphocytes # 2.0 (1.0-4.8) k/uL Monocytes # 0.6 (0-1.0) k/uL Eosinophils # 0.1 (0-0.7) k/uL Basophils # 0.1 (0-0.2) k/uL PT 10.6 (9.0-12.0) sec INR 1.0 (<1.2) APTT 25.7 (22.0-30.0) sec Sodium 140 (137-145) mmol/L Potassium 4.7 (3.5-5.1) mmol/L Chloride 108 H (98-107) mmol/L Carbon Dioxide 24 (22-30) mmol/L Anion Gap 8 mmol/L BUN 46 H (9-20) mg/dL Creatinine 1.98 H (0.66-1.25) mg/dL Est GFR (CKD-EPI)AfAm 37 (>60 ml/min/1.73 sqM) Est GFR (CKD-EPI)NonAf 32 (>60 ml/min/1.73 sqM) Glucose 138 H (74-99) mg/dL Plasma Lactic Acid Daniel (0.7-2.0) mmol/L Calcium 8.9 (8.4-10.2) mg/dL Magnesium 2.0 (1.6-2.3) mg/dL Total Bilirubin 0.6 (0.2-1.3) mg/dL AST 17 (17-59) U/L ALT 31 (21-72) U/L Alkaline Phosphatase 81 (38-126) U/L Troponin I (0.000-0.034) ng/mL Total Protein 6.0 L (6.3-8.2) g/dL Albumin 3.6 (3.5-5.0) g/dL Urine Color Urine Appearance (Clear) Urine pH (5.0-8.0) Ur Specific [place] (1.001-1.035) Urine Protein (Negative) Urine Glucose (UA) (Negative) Urine Ketones (Negative) Urine Blood (Negative) Urine Nitrite (Negative) Urine Bilirubin (Negative) Urine Urobilinogen (<2.0) mg/dL Ur Leukocyte Esterase (Negative) Urine RBC (0-5) /hpf Urine WBC (0-5) /hpf Urine WBC Clumps (None) /hpf Urine Bacteria (None) /hpf 07/24/18 07/24/18 07/24/18 Range/Units 07:45 07:45 07:45 WBC (3.8-10.6) k/uL RBC (4.30-5.90) m/uL Hgb (13.0-17.5) gm/dL Hct (39.0-53.0) % MCV (80.0-100.0) fL MCH (25.0-35.0) pg MCHC (31.0-37.0) g/dL RDW (11.5-15.5) % Plt Count (150-450) k/uL Neutrophils % % Lymphocytes % % Monocytes % % Eosinophils % % Basophils % % Neutrophils # (1.3-7.7) k/uL Lymphocytes # (1.0-4.8) k/uL Monocytes # (0-1.0) k/uL Eosinophils # (0-0.7) k/uL Basophils # (0-0.2) k/uL PT (9.0-12.0) sec INR (<1.2) APTT (22.0-30.0) sec Sodium (137-145) mmol/L Potassium (3.5-5.1) mmol/L Chloride (98-107) mmol/L Carbon Dioxide (22-30) mmol/L Anion Gap mmol/L BUN (9-20) mg/dL Creatinine (0.66-1.25) mg/dL Est GFR (CKD-EPI)AfAm (>60 ml/min/1.73 sqM) Est GFR (CKD-EPI)NonAf (>60 ml/min/1.73 sqM) Glucose (74-99) mg/dL Plasma Lactic Acid Daniel 0.9 (0.7-2.0) mmol/L Calcium (8.4-10.2) mg/dL Magnesium (1.6-2.3) mg/dL Total Bilirubin (0.2-1.3) mg/dL AST (17-59) U/L ALT (21-72) U/L Alkaline Phosphatase (38-126) U/L Troponin I <0.012 (0.000-0.034) ng/mL Total Protein (6.3-8.2) g/dL Albumin (3.5-5.0) g/dL Urine Color Yellow Urine Appearance Turbid (Clear) Urine pH 7.5 (5.0-8.0) Ur Specific [place] 1.016 (1.001-1.035) Urine Protein 1+ H (Negative) Urine Glucose (UA) Negative (Negative) Urine Ketones Negative (Negative) Urine Blood Moderate H (Negative) Urine Nitrite Negative (Negative) Urine Bilirubin Negative (Negative) Urine Urobilinogen <2.0 (<2.0) mg/dL Ur Leukocyte Esterase Large H (Negative) Urine RBC 17 H (0-5) /hpf Urine WBC >182 H (0-5) /hpf Urine WBC Clumps Many H (None) /hpf Urine Bacteria Occasional H (None) /hpf Disposition Clinical Impression: Urinary tract infection, Syncope and collapse Disposition: ADMITTED IP TO THIS HOSP Referrals: Leonides Azul MD [Primary Care Provider] - 1-2 days Time of Disposition: 10:58
[2018-07-24 08:11] LABS: Basophils # (A) 0.1 k/uL (0-0.2); Basophils % (A) 1 %; Eosinophils # (A) 0.1 k/uL (0-0.7); Eosinophils % (A) 2 %; HCT 31.5 % (39.0-53.0); HGB 9.8 gm/dL (13.0-17.5); Lymphocytes % (A) 24 %; MCH 29.1 pg (25.0-35.0); MCV 93.8 fL (80.0-100.0); Mean Platelet Volume 6.8; Monocytes # (A) 0.6 k/uL (0-1.0); Monocytes % (A) 7 %; Neutrophils # (A) 5.2 k/uL (1.3-7.7); Neutrophils % (A) 64 %; Platelet Count 336 k/uL (150-450); RBC 3.35 m/uL (4.30-5.90); RDW 13.7 % (11.5-15.5); WBC 8.2 k/uL (3.8-10.6)
[2018-07-24 08:20] LABS: Appearance,Urine Turbid (Clear); Bacteria,Urine Occasional /hpf; Bilirubin,Urine Negative (Negative); Blood,Urine Moderate (Negative); Color,Urine Yellow; Glucose,Urine (UA) Negative (Negative); Ketones,Urine Negative (Negative); Leukocyte Esterase,Urine Large (Negative); Nitrite,Urine Negative (Negative); PH, Urine 7.5 (5.0-8.0); Protein,Urine 1+ (Negative); RBC,Urine 17 /hpf (0-5); Specific Gravity,Urine 1.016 (1.001-1.035); Urobilinogen,Urine <2.0 mg/dL (<2.0); WBC,Urine >182 /hpf (0-5)
[2018-07-24 08:21] LABS: Albumin 3.6 g/dL (3.5-5.0); Calcium 8.9 mg/dL (8.4-10.2); Potassium 4.7 mmol/L (3.5-5.1); Total Bilirubin 0.6 mg/dL (0.2-1.3)
[2018-07-24 08:25] LABS: Partial Thromboplastin Time 25.7 sec (22.0-30.0); Prothrombin Time 10.6 sec (9.0-12.0)
--- NOTE | 2018-07-24 08:47 | CT ---
EXAMINATION TYPE: CT brain wo con DATE OF EXAM: 07/24/2018 COMPARISON: 06/18/2018 INDICATION: syncope DLP: 2516.4 mGycm, Automated exposure control for dose reduction was used. CONTRAST: None CT of the brain is performed utilizing 3 mm thick sections through the posterior fossa and 3 mm thick sections through the remaining calvarium. Study is performed within 24 hours of arrival to the hosp [facility]. Multiple sequences were obtained due to patient lack of cooperation and motion artifact No abnormal hyperdensity is present to suggest an acute intracranial hemorrhage. No mass lesion is evident. No acute infarcts are evident. Periventricular white matter hypodensity is present, likely on the bas is of chronic white matter ischemic changes Ventricles and sulci are prominent for the patient age. Paranasal sinuses and mastoid air cells within the [id number] are clear. IMPRESSIONS: 1. Atrophy with chronic appearing white matter ischemic changes.
--- NOTE | 2018-07-24 08:54 | XR ---
EXAMINATION TYPE: XR chest 2V DATE OF EXAM: 07/24/2018 COMPARISON: 06/18/2018 TECHNIQUE: PA and lateral views submitted. HISTORY: Syncope FINDINGS: The lungs are clear and there is no pneumothorax, pleural effusion, or focal pneumonia. Stable elev ated right hemidiaphragm. Atherosclerotic change of the aorta. Mild prominence the right hilum second sammie to slight patient rotation. Arthropathy of the shoulders. Surgical clips in the abdomen hypertrop hic and degenerative change of the spine. Chronic rib deformities suggest remote trauma. IMPRESSION: 1. Persistent elevated right hemidiaphragm. Nodular contour the right hilum may be related to slight patient rotation. Short-term follow-up PA and lateral views of the chest recommended..
[2018-07-24] MEDS ORDERED: SODIUM CHLORIDE 0.9% 1,000 ML IV ONE (10:58)
[2018-07-24] MEDS ORDERED: MAGNESIUM HYDROXIDE 2,400 MG/10 ML CUP PO PRN (12:08)
[2018-07-24] MEDS ORDERED: ONDANSETRON 4 MG TAB PO PRN (12:08)
[2018-07-24] MEDS ORDERED: AMMONIUM LACTATE 12% LOTION 225 GM BTL TOPICAL PRN (12:08)
[2018-07-24] MEDS ORDERED: IPRATROPIUM-ALBUTEROL 3 ML NEB INHALATION PRN (12:08)
[2018-07-24] MEDS ORDERED: MELATONIN 3 MG TABLET PO PRN (12:08)
[2018-07-24 14:16] VITALS: BMI 28.3
[2018-07-24] MEDS ORDERED: NON-FORMULARY DRUG (Lactose-Reduced Food [Ensure Plus] 120 ML) PO SCH (15:00)
[2018-07-24] MEDS: PIOGLITAZONE 15 MG TAB PO SCH (16:18)
[2018-07-24] MEDS: LISINOPRIL-HCTZ 10-12.5 MG 1 EACH TAB PO SCH (16:18)
[2018-07-24] MEDS: AMIODARONE 100 MG TAB PO SCH (16:19)
[2018-07-24] MEDS: IPRATROPIUM-ALBUTEROL 3 ML NEB INHALATION SCH ×3 (16:23→16:29)
[2018-07-24] MEDS: BUDESONIDE 1 MG/2 ML NEBU INHALATION SCH ×2 (16:23→19:57)
[2018-07-24] MEDS: METOPROLOL TARTRATE 12.5 MG TAB PO SCH ×2 (16:32→22:54)
[2018-07-24] MEDS: APIXABAN 5 MG TAB PO SCH ×2 (16:32→22:13)
[2018-07-24] MEDS: guaiFENesin 600 MG TABLET.ER PO SCH ×2 (16:32→22:13)
[2018-07-24] MEDS: CITALOPRAM HYDROBROMIDE 10 MG TAB PO SCH (16:32)
[2018-07-24] MEDS: PANTOPRAZOLE 40 MG TABLET PO SCH (16:32)
[2018-07-24 22:13] LABS: Glucose,Whole Blood 124 mg/dL (75-99)
[2018-07-24] MEDS: LACTULOSE 20 GM/30 ML CUP PO SCH (22:52)
[2018-07-24] MEDS: ATORVASTATIN 10 MG TAB PO SCH (22:54)
[2018-07-25] MEDS: LACTATED RINGERS 1,000 ML IV SCH ×3 (06:30→20:03)
--- NOTE | 2018-07-25 06:34 | HP ---
HISTORY AND PHYSICAL DATE OF ADMISSION: 07/24/2018 PRESENTING COMPLAINT: Passed out. HISTORY OF PRESENTING COMPLAINT: This is a 73-year-old patient with multiple medical problems. Chronic stable medical conditions include congestive heart failure, EF 50% to 55%, hypertensive heart disease, chronic right-sided weakness from a stroke, COPD, diabetes mellitus type 2, hypertension, hyperlipidemia, chronic T12 compression fracture, urine and bowel incontinence, chronic medical debility, legally blind, chronic medical debility and chronic kidney disease stage 3 from nephrosclerosis. The patient was sent in from the [facility] after a syncopal episode. Patient is sitting up. He states that he passed out for a short time. There was no dizziness, no lightheadedness, no headache, no double vision, no new weakness, no palpitation. Hence, patient is admitted for the same. REVIEW OF SYSTEMS: CONSTITUTIONAL: Tired. HEENT: Blind. RESPIRATORY: None. CARDIOVASCULAR: None. GASTROINTESTINAL: None. GENITOURINARY: None. MUSCULOSKELETAL: Some pain in the joints. DERMATOLOGICAL: None. HEMATOLOGIC: None. LYMPHATIC: None. PSYCHIATRY: Able to answer simple questions. NEUROLOGICAL: Some chronic left-sided weakness. PAST MEDICAL HISTORY: Atrial fibrillation, COPD, stroke, diabetes mellitus type 2, hypertension, hyperlipidemia, legally blind bilaterally, hard of hearing, history of falls, chronic kidney stage 3, T12 compression fracture, urine and bowel incontinence, pretty much bed bound, needs assistance, vitamin D deficiency. PAST SURGICAL HISTORY: Cholecystectomy. SOCIAL HISTORY: Lives at [facility]. Patient smoked for 47 years, stopped in 2012. Smoked a pipe. Alcohol none. FAMILY HISTORY: Diabetes. HOME MEDICATIONS: 1. Mucinex 1200 mg p.o. q.12. 2. Actos 15 mg p.o. daily. 3. Protonix 40 mg daily. 4. Zofran 4 mg q.8 p.r.n. 5. Lopressor 12.5 p.o. b.i.d. 6. Melatonin 3 mg q.h.s. p.r.n. 7. Milk of magnesia 2400 mg q.72h p.r.n. 8. Zestoretic 03/08.5 one tablet p.o. b.i.d. 9. Lactulose 10 grams p.o. b.i.d. 10.Ensure Plus 120 mL p.o. t.i.d. 11.DuoNeb q.i.d. plus p.r.n. 12.Insulin lispro. 13.Lasix 40 mg Sunday, . 14.Iron 65 mg a day. 15.Inzo zinc oxide barrier cream topically. 16.Celexa 10 mg a day. 17.Budesonide 1 mg nebulizer b.i.d. 18.Lipitor 10 mg q.h.s. 19.Aspirin 81 mg daily. 20.Eliquis 5 mg b.i.d. 21.Lac-Hydrin 12% topical q.12 p.r.n. 22.Cordarone 100 mg a day. ALLERGIES: Allergies to VICODIN. PHYSICAL EXAMINATION: On examination, temperature 98.1, pulse 74, respiration 15, blood pressure 150/69, pulse ox 100%. GENERAL APPEARANCE: Lying in bed, awake. EYES: Pupils equal. Conjunctivae dirty. Poor eyesight. HENT: External appearance of nose and ears normal. Oral cavity dry. NECK: JVD not raised. Mass not palpable. RESPIRATORY: Effort normal. LUNGS: Diminished breath sounds. CARDIOVASCULAR: First and second sounds normal. No edema. ABDOMEN: Soft, nontender. Liver and spleen not palpable. LYMPHATIC: No lymph node palpable in the neck and axillae. PSYCHIATRY: The patient is able answer simple questions. NEUROLOGICAL: The patient is legally blind. Otherwise power and sensation grossly intact. INVESTIGATIONS: White count 8.2, hemoglobin 9.8. Potassium 4.7. BUN 46, creatinine 1.98. UA positive. EKG tracing personally reviewed by me shows right bundle branch block. Chest x-ray film personally reviewed by me shows some elevation right diaphragm, otherwise lung montano are clear. ASSESSMENT: 1. Acute urinary tract infection likely from cystitis. 2. Chronic congestive heart failure from diastolic dysfunction, ejection fraction 50% to 55%. 3. Hypertensive heart disease with chronic kidney disease. 4. 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 5. Chronic obstructive pulmonary disease in an ex-smoker. 6. Diabetes mellitus type 2 on oral hypoglycemics, uncontrolled, steroids. 7. Hyperlipidemia. 8. Essential hypertension. 9. Chronic T12 compression fracture. 10.Urine and bowel incontinence. 11.Chronic medical debility. 12.Legally blind. The patient can only perceive light. 13.Chronic medical debility, patient needs assistance for transfers. 14.Chronic kidney disease stage 3 from nephrosclerosis. 15.Acute renal failure component probably prerenal. 16.Syncope likely vasovagal from being prerenal. PLAN: Home medications are resumed. Will hold off patient's Lasix for right now. The patient is gently being hydrated. Care was discussed with the patient. IV fluids will be given. Other medication and treatment plans to continue. Repeat electrolytes in the morning. MMODL / IJN: [id number] /
[2018-07-25 08:42] LABS: Calcium 9.1 mg/dL (8.4-10.2); Potassium 5.1 mmol/L (3.5-5.1)
[2018-07-25] MEDS ORDERED: FUROSEMIDE 40 MG TAB PO SCH (09:00)
[2018-07-25] MEDS: LACTULOSE 20 GM/30 ML CUP PO SCH ×2 (09:01→20:02)
[2018-07-25] MEDS: CITALOPRAM HYDROBROMIDE 10 MG TAB PO SCH (09:02)
[2018-07-25] MEDS: PANTOPRAZOLE 40 MG TABLET PO SCH (09:02)
[2018-07-25] MEDS: METOPROLOL TARTRATE 12.5 MG TAB PO SCH ×2 (09:02→20:01)
[2018-07-25] MEDS: APIXABAN 5 MG TAB PO SCH ×2 (09:02→20:01)
[2018-07-25] MEDS: FERROUS SULFATE 325 MG TAB PO SCH (09:02)
[2018-07-25] MEDS: ASPIRIN 81 MG PO SCH (09:02)
[2018-07-25] MEDS: guaiFENesin 600 MG TABLET.ER PO SCH ×2 (09:03→20:01)
[2018-07-25] MEDS: IPRATROPIUM-ALBUTEROL 3 ML NEB INHALATION SCH ×4 (09:17→19:17)
[2018-07-25] MEDS: BUDESONIDE 1 MG/2 ML NEBU INHALATION SCH ×2 (09:17→19:18)
[2018-07-25] MEDS: AMIODARONE 100 MG TAB PO SCH (12:51)
[2018-07-25] MEDS: PIOGLITAZONE 15 MG TAB PO SCH (12:51)
[2018-07-25] MEDS: LISINOPRIL-HCTZ 10-12.5 MG 1 EACH TAB PO SCH ×2 (12:51→20:03)
[2018-07-25 17:38] LABS: Glucose,Whole Blood 153 mg/dL (75-99)
[2018-07-25 17:39] LABS: Glucose,Whole Blood 153 mg/dL (75-99)
[2018-07-25] MEDS: INSULIN ASPART (NovoLOG) 100 UNIT/ML VIAL SQ SCH ×2 (17:41→20:41)
[2018-07-25] MEDS: ATORVASTATIN 10 MG TAB PO SCH (20:01)
[2018-07-25 20:32] LABS: Glucose,Whole Blood 142 mg/dL (75-99)
[2018-07-26] MEDS: LACTATED RINGERS 1,000 ML IV SCH (05:55)
[2018-07-26 06:50] LABS: Glucose,Whole Blood 111 mg/dL (75-99)
[2018-07-26 07:15] VITALS: BP 116/53; RESP 16; TEMP 98.3
[2018-07-26] MEDS: IPRATROPIUM-ALBUTEROL 3 ML NEB INHALATION SCH ×3 (07:49→15:46)
[2018-07-26] MEDS: BUDESONIDE 1 MG/2 ML NEBU INHALATION SCH (07:56)
[2018-07-26 08:09] LABS: Calcium 8.7 mg/dL (8.4-10.2); Potassium 4.7 mmol/L (3.5-5.1)
[2018-07-26] MEDS: INSULIN ASPART (NovoLOG) 100 UNIT/ML VIAL SQ SCH ×2 (08:50→11:52)
--- NOTE | 2018-07-26 10:44 | PN ---
PROGRESS NOTE DATE OF SERVICE: 07/25/2018 PRESENTING COMPLAINT: Syncope. INTERVAL HISTORY: This patient was seen by me yesterday. Presented with syncope, felt to be from underlying acute UTI with cystitis. The patient is feeling better. Tolerating his diet. Urine cultures are pending. Sitting up on a chair. Looks better. REVIEW OF SYSTEMS: Done for constitutional, cardiovascular, GI, pulmonary; relevant findings as above. CURRENT MEDICATIONS: Current medications are reviewed that include IV ceftriaxone. PHYSICAL EXAMINATION: On examination, temperature 97.7, pulse 71, respirations 16, blood pressure 105/55, pulse ox 100% on room air. GENERAL APPEARANCE: Sitting up in a chair, awake. EYES: Pupils equal. Conjunctivae dirty appearing. Poor eyesight. NECK: JVD not raised. Mass not palpable. RESPIRATORY: Effort . LUNGS: Decreased breath sounds. CARDIOVASCULAR: First and second sounds normal. No edema. ABDOMEN: Soft, nontender. Liver and spleen not palpable. PSYCHIATRY: Patient is able answer simple questions. NEUROLOGICAL: Patient is legally blind. INVESTIGATIONS: Potassium 5.1, BUN 41, creatinine 1.59. Urine cultures pending. ASSESSMENT: 1. Acute urinary tract infection infection from cystitis with cultures pending. 2. Chronic congestive heart failure from diastolic dysfunction, ejection fraction 50% to 55%. 3. Syncope on presentation from underlying infection. 4. Hypertensive heart disease with chronic kidney disease. 5. 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 6. Chronic obstructive pulmonary disease in an ex-smoker. 7. Diabetes mellitus type 2 on oral hypoglycemics uncontrolled from steroids. 8. Hyperlipidemia. 9. Essential hypertension. 10.Chronic T12 compression fracture. 11.Urine and bowel incontinence. 12.Chronic medical debility. 13.Legally blind. The patient can only perceive light. 14.Chronic medical debility. Patient needs assistance for transfers. 15.Chronic kidney disease stage 3 from nephrosclerosis. 16.Acute renal failure, prerenal from poor oral intake. 17.Syncope likely vasovagal from being prerenal. PLAN: Continue the current medication and treatment plan. Lasix has been held. Awaiting urine culture. Hopefully discharge in 24 hours. MMODL / IJN: [id number] /
[2018-07-26 11:07] LABS: Glucose,Whole Blood 144 mg/dL (75-99)
[2018-07-26] MEDS: guaiFENesin 600 MG TABLET.ER PO SCH (11:49)
[2018-07-26] MEDS: PANTOPRAZOLE 40 MG TABLET PO SCH (11:49)
[2018-07-26] MEDS: METOPROLOL TARTRATE 12.5 MG TAB PO SCH (11:49)
[2018-07-26] MEDS: PIOGLITAZONE 15 MG TAB PO SCH (11:49)
[2018-07-26] MEDS: LISINOPRIL-HCTZ 10-12.5 MG 1 EACH TAB PO SCH (11:49)
[2018-07-26] MEDS: AMIODARONE 100 MG TAB PO SCH (11:50)
[2018-07-26] MEDS: ASPIRIN 81 MG PO SCH (11:50)
[2018-07-26] MEDS: FERROUS SULFATE 325 MG TAB PO SCH (11:50)
[2018-07-26] MEDS: APIXABAN 5 MG TAB PO SCH (11:50)
[2018-07-26] MEDS: CITALOPRAM HYDROBROMIDE 10 MG TAB PO SCH (11:50)
[2018-07-26] MEDS: LACTULOSE 20 GM/30 ML CUP PO SCH (11:51)
[2018-07-26 13:42] VITALS: PULSE 78
--- NOTE | 2018-07-26 13:59 | DS ---
DISCHARGE SUMMARY DATE OF ADMISSION: 07/24/2018 DATE OF DISCHARGE: 07/26/2018 FINAL DIAGNOSES: 1. Acute urinary tract infection from cystitis causing syncope on presentation. 2. Acute renal failure, prerenal from poor oral intake. 3. Chronic congestive heart failure from diastolic dysfunction. Ejection fraction 50%- 55%. 4. Hypertensive heart disease with chronic kidney disease. 5. 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 6. Chronic obstructive pulmonary disease in an ex-smoker. 7. Diabetes mellitus type 2 on oral hypoglycemics, uncontrolled from steroids. 8. Hyperlipidemia. 9. Essential hypertension. 10.Chronic T12 compression fracture. 11.Urine and bowel incontinence. 12.Chronic medical debility. 13.Legally blind. The patient can only perceive light. 14.Chronic medical debility, needs assistance for transfers. 15.Chronic kidney disease stage III from nephrosclerosis. HOSPITAL COURSE: This patient presented with syncope, found to be in acute renal failure. Creatinine was 1.98, did come down to 1.51, close to his baseline. Also found to have a UTI. Doing much better by the time of discharge, stable. Tolerating a diet. PHYSICAL EXAMINATION: Temperature 98.3 pulse 74, respirations 16, blood pressure 116/53, pulse 100% on room air. LUNGS: Fair entry. INVESTIGATIONS: BUN 38, creatinine 1.51. DISCHARGE MEDICATIONS: 1. Aspirin 81 mg a day. 2. Protonix 40 mg a day. 3. Pulmicort 1 mg nebulizer b.i.d. 4. Iron 325 p.o. daily. 5. DuoNeb q.i.d. 6. Zofran 4 mg q.8 p.r.n. 7. Zinc oxide barrier 1 topical b.i.d. p.r.n. 8. Lactulose 10 g p.o. b.i.d. 9. Milk of magnesia 25 mg q.72h p.r.n. 10. 12% 1 application topical q.12 p.r.n. 11.Eliquis 5 mg p.o. b.i.d. 12.Lipitor 10 mg p.o. q.h.s. 13.Humalog protocol per sliding scale. 14.Melatonin 3 mg q.h.s. p.r.n. 15.Actos 50 mg p.o. daily. 16.Lopressor 12.5 p.o. b.i.d. 17.Cordarone 100 mg p.o. daily. 18.Celexa 10 mg p.o. daily. 19.DuoNeb q.4 p.r.n. 20.Lactulose reduce food. 21.Ensure Plus 120 mL p.o. t.i.d. 22.Zestoretic 10/12.5 one tablet p.o. b.i.d. 23.Ceftin 250 mg p.o. b.i.d. 10 tablets. 24.Discontinued Lasix and Mucinex. DISPOSITION: [facility]. FOLLOWUP: Follow up with Dr. Azul at [facility]. MMODL / IJN: [id number] /
== END 2018-07-26 15:47 ==
LOC: EC 07:27 → 3NMEDONC 11:14
PROVIDERS: ADMIT Hospitalist; ATTEND Hospitalist
DX: N30.90 Cystitis, unspecified without hematuria (principal); N17.9 Acute kidney failure, unspecified; I13.0 Hypertensive heart and chronic kidney disease with heart failure and stage 1 through stage 4 chronic kidney disease, or unspecified chronic kidney disease; N18.3 Chronic kidney disease, stage 3 (moderate); I50.32 Chronic diastolic (congestive) heart failure; H54.8 Legal blindness, as defined in USA; E11.22 Type 2 diabetes mellitus with diabetic chronic kidney disease; I69.351 Hemiplegia and hemiparesis following cerebral infarction affecting right dominant side; E11.65 Type 2 diabetes mellitus with hyperglycemia; J44.9 Chronic obstructive pulmonary disease, unspecified; H40.9 Unspecified glaucoma; F32.9 Major depressive disorder, single episode, unspecified; E55.9 Vitamin D deficiency, unspecified; I45.10 Unspecified right bundle-branch block; R41.3 Other amnesia; R55 Syncope and collapse; M48.54XD Collapsed vertebra, not elsewhere classified, thoracic region, subsequent encounter for fracture with routine healing; E78.5 Hyperlipidemia, unspecified; R15.9 Full incontinence of feces; R32 Unspecified urinary incontinence; R53.81 Other malaise; Z79.82 Long term (current) use of aspirin; Z79.899 Other long term (current) drug therapy; Z79.51 Long term (current) use of inhaled steroids; Z79.01 Long term (current) use of anticoagulants; Z79.4 Long term (current) use of insulin; Z88.5 Allergy status to narcotic agent; Z91.81 History of falling; Z74.01 Bed confinement status; Z87.01 Personal history of pneumonia (recurrent); Z90.49 Acquired absence of other specified parts of digestive tract; Z87.891 Personal history of nicotine dependence; Z83.3 Family history of diabetes mellitus
CPT/HCPCS: 96361 ×4; 96366; 96365; 99285; 36415; 94640 ×4; 94760; 97162; 97166; 80053; 80048 ×2; 83605; 83735; 84484; 85025; 85610; 85730; 81001; 87040; 87086; 87077; 87186; 71046; 70450; G0378 ×3; J0696 ×3

== ENCOUNTER 2018-09-26 05:51 | Emergency (ER) | payer MEDICARE, OTHER ==
[2018-09-26 06:03] VITALS: BP 180/84; PULSE 72; RESP 19; TEMP 98.5
[2018-09-26] MEDS ORDERED: SODIUM CHLORIDE 0.9% 1,000 ML IV STA (06:03)
--- NOTE | 2018-09-26 06:04 | ED ---
Dizziness HPI <Heidi Bermudez - Last Filed: 09/26/18 06:34> <Yariel Dexter - Last Filed: 09/26/18 10:28> - General Stated Complaint: Dizziness - History of Present Illness Initial Comments: Jackson is a pleasant 73-year-old gentleman who presents to the emergency department today for evaluation of dizziness or lightheadedness. Patient is blind at baseline and wheelchair-bound. She reports that around 1 AM he got up to have a sandwich and at that time felt somewhat lightheaded. Patient reports that he told his caregivers about this and advised him to lay down. Patient did report feeling somewhat better upon laying down but around 3 AM sat up and still felt lightheaded he told his caregivers this they contacted the physician who advised she should come to the ER for evaluation. Patient reports he feels worse when standing better when laying down. He is not certain if he feels like a spinning at all. He has no headache. He has no worsening weaknesses in his arms or legs. (Heidi Bermudez) - Related Data Home Medications Medication Instructions Recorded Confirmed Aspirin 81 mg PO DAILY@89908/11/17 09/26/18 Pantoprazole [Protonix] 40 mg PO DAILY@89908/20/17 09/26/18 Budesonide [Pulmicort] 1 mg INHALATION RT-BID@899,209901/08/18 09/26/18 Ferrous Sulfate [Iron (65 MG 325 mg PO DAILY@89901/08/18 09/26/18 Elemental)] Lactulose 10 gm PO BID@899,209904/17/18 09/26/18 Ammonium Lactate Lotion 1 applic TOPICAL Q12H PRN 05/10/18 09/26/18 [Lac-Hydrin 12% Lotion] Atorvastatin Calcium [Lipitor] 10 mg PO HS@209905/10/18 09/26/18 Pioglitazone HCl [Actos] 15 mg PO DAILY@89905/10/18 09/26/18 Metoprolol Tartrate [Lopressor] 12.5 mg PO BID@0900,209906/18/18 09/26/18 Amiodarone [Cordarone] 100 mg PO DAILY@89907/24/18 09/26/18 Citalopram Hydrobromide [CeleXA] 10 mg PO DAILY@0900 07/24/18 09/26/18 Ipratropium-Albuterol Nebulize 3 ml INHALATION RT-Q6H PRN 07/24/18 09/26/18 [Duoneb 0.5 mg-3 mg/3 ml Soln] Lisinopril-Hctz 10-12.5 mg 1 tab PO BID@0900,2100 07/24/18 09/26/18 [Zestoretic 10-12.5] Lactose-Reduced Food [Ensure Plus] 120 ml PO TID 09/26/18 09/26/18 Previous Rx's Medication Instructions Recorded Amoxicillin/Potassium Clav 1 each PO Q12HR #28 tab 09/26/18 [Augmentin 875-125 Tablet] Meclizine [Antivert] 25 mg PO TID #20 tab 09/26/18 Allergies Allergy/AdvReac Type Severity Reaction Status Date / Time hydrocodone bitartrate AdvReac Nausea Verified 09/26/18 08:07 [From Vicodin] Review of Systems ROS Other: All systems not noted in ROS Statement are negative. <Heidi Bermudez - Last Filed: 09/26/18 06:34> ROS Other: All systems not noted in ROS Statement are negative. <Yariel Dexter - Last Filed: 09/26/18 10:28> ROS Statement: Those systems with pertinent positive or pertinent negative responses have been documented in the HPI. Past Medical History Past Medical History: Atrial Fibrillation, COPD, CVA/TIA, Diabetes Mellitus, Eye Disorder, Hyperlipidemia, Hypertension, Memory Impairment, Pneumonia, Renal Disease, Syncope Additional Past Medical History / Comment(s): Pt recently admitted to [facility] on 06/01/18 with bilateral pneumonia/CHF. Other hx: NIDDM type II, legally blind bilaterally secondary to complications of glaucoma; hard of hearing, right-sided deficits from previous CVA, hx of falls, chronic renal failure stage III, DDD, hx of T12 compression fx, spondylothesis, urinary/bowel incontinence, bed bound w/ assist to chair, A+O to person/place = baseline, anemia, vitamin D deficiency, hx of respiratory failure w/ hypoxia. History of Any Multi-Drug Resistant Organisms: None Reported Past Surgical History: Cholecystectomy Additional Past Surgical History / Comment(s): Laparoscopic cholecystectomy Past Anesthesia/Blood Transfusion Reactions: No Reported Reaction Past Psychological History: Depression Additional Psychological History / Comment(s): Pt. resides at [facility]. He is legally blind bilaterally. He denies any increased depression or thoughts of suicide. Smoking Status: Former smoker Past Alcohol Use History: None Reported Additional Past Alcohol Use History / Comment(s): Started smoking about 1965 and quit in 2012. Smoked a pipe. Past Drug Use History: None Reported - Past Family History Father Family Medical History: Diabetes Mellitus Mother Family Medical History: Dementia, Diabetes Mellitus Brother(s) Family Medical History: Unable to Obtain <Heidi Bermudez - Last Filed: 09/26/18 06:34> General Exam <Heidi Bermudez - Last Filed: 09/26/18 06:34> - General Exam Comments Initial Comments: Physical Exam GENERAL: Chronically ill appearing elderly male HENT: Normocephalic, Atraumatic. Cerumen impaction bilaterally EYES: Cataracts bilaterally PULMONARY: Unlabored respirations No audible rales rhonchi or wheezing was noted. CARDIOVASCULAR: There is a regular rate and rhythm without any murmurs gallops or rubs. ABDOMEN: Soft and nontender with normal bowel sounds. SKIN: Skin is clear with no lesions or rashes and otherwise unremarkable. : Deferred NEUROLOGIC: Patient is alert and oriented x3. Moving all extremities spontaneously MUSCULOSKELETAL: Generalized weakness and atrophy PSYCHIATRIC: Normal psychiatric evaluation. Limitations: no limitations (Heidi Bermudez) Course Vital Signs 09/26/18 05:53 Temperature 98.5 F Pulse Rate 72 Respiratory 19 Rate Blood Pressure 180/84 O2 Sat by Pulse 98 Oximetry EKG Findings - EKG Comments: EKG Findings:: EKG was obtained upon arrival to do complain of lightheadedness, EKG obtained at 5:55 AM rate 74, rhythm is sinus, there is normal axis there are normal intervals, MN 164, QRS 148, QTC 479 there is noted to be a right bundle branch block. In no acute ST elevations or depressions no evidence of acute ischemia or infarction. <Heidi Bermudez - Last Filed: 09/26/18 06:34> Medical Decision Making - Lab Data Result diagrams: 09/26/18 06:11 09/26/18 06:11 <Yariel Dexter - Last Filed: 09/26/18 10:28> - Medical Decision Making CT of the brain shows pansinusitis no other acute abnormality noted. (Yariel Dexter) - Lab Data Lab Results 09/26/18 09/26/18 09/26/18 Range/Units 06:11 06:11 08:40 WBC 6.1 (3.8-10.6) k/uL RBC 3.00 L (4.30-5.90) m/uL Hgb 8.6 L (13.0-17.5) gm/dL Hct 27.9 L (39.0-53.0) % MCV 93.0 (80.0-100.0) fL MCH 28.7 (25.0-35.0) pg MCHC 30.9 L (31.0-37.0) g/dL RDW 13.9 (11.5-15.5) % Plt Count 322 (150-450) k/uL Neutrophils % 54 % Lymphocytes % 33 % Monocytes % 6 % Eosinophils % 1 % Basophils % 1 % Neutrophils # 3.3 (1.3-7.7) k/uL Lymphocytes # 2.0 (1.0-4.8) k/uL Monocytes # 0.4 (0-1.0) k/uL Eosinophils # 0.1 (0-0.7) k/uL Basophils # 0.0 (0-0.2) k/uL Hypochromasia Slight Sodium 138 (137-145) mmol/L Potassium 4.4 (3.5-5.1) mmol/L Chloride 106 (98-107) mmol/L Carbon Dioxide 28 (22-30) mmol/L Anion Gap 4 mmol/L BUN 30 H (9-20) mg/dL Creatinine 1.54 H (0.66-1.25) mg/dL Est GFR (CKD-EPI)AfAm 50 (>60 ml/min/1.73 sqM) Est GFR (CKD-EPI)NonAf 44 (>60 ml/min/1.73 sqM) Glucose 98 (74-99) mg/dL Calcium 8.5 (8.4-10.2) mg/dL Total Bilirubin 0.6 (0.2-1.3) mg/dL AST 15 L (17-59) U/L ALT 18 L (21-72) U/L Alkaline Phosphatase 84 (38-126) U/L Total Protein 5.4 L (6.3-8.2) g/dL Albumin 3.2 L (3.5-5.0) g/dL Urine Color Light Yellow Urine Appearance Clear (Clear) Urine pH 6.5 (5.0-8.0) Ur Specific [place] 1.013 (1.001-1.035) Urine Protein Negative (Negative) Urine Glucose (UA) Negative (Negative) Urine Ketones Negative (Negative) Urine Blood Negative (Negative) Urine Nitrite Negative (Negative) Urine Bilirubin Negative (Negative) Urine Urobilinogen <2.0 (<2.0) mg/dL Ur Leukocyte Esterase Negative (Negative) Disposition <Heidi Bermudez - Last Filed: 09/26/18 06:34> Is patient prescribed a controlled substance at d/c from ED?: No Time of Disposition: 10:28 <Yariel Dexter - Last Filed: 09/26/18 10:28> Clinical Impression: Acute pansinusitis, unspecified, Vertigo Disposition: HOME SELF-CARE Condition: Good Instructions (If sedation given, give patient instructions): Cervical Strain (ED), Vertigo (ED), Sinusitis (ED) Prescriptions: Meclizine [Antivert] 25 mg PO TID #20 tab Amoxicillin/Potassium Clav [Augmentin 875-125 Tablet] 1 each PO Q12HR #28 tab Referrals: Leonides Azul MD [Primary Care Provider] - 1-2 days
[2018-09-26 06:23] LABS: Basophils % (A) 1 %; Eosinophils # (A) 0.1 k/uL (0-0.7); Eosinophils % (A) 1 %; HCT 27.9 % (39.0-53.0); HGB 8.6 gm/dL (13.0-17.5); Hypochromasia Slight; Lymphocytes % (A) 33 %; MCH 28.7 pg (25.0-35.0); MCHC 30.9 g/dL (31.0-37.0); Monocytes # (A) 0.4 k/uL (0-1.0); Monocytes % (A) 6 %; Neutrophils # (A) 3.3 k/uL (1.3-7.7); Neutrophils % (A) 54 %; Platelet Count 322 k/uL (150-450); RDW 13.9 % (11.5-15.5); WBC 6.1 k/uL (3.8-10.6)
[2018-09-26 06:45] LABS: Albumin 3.2 g/dL (3.5-5.0); Calcium 8.5 mg/dL (8.4-10.2); Potassium 4.4 mmol/L (3.5-5.1); Total Bilirubin 0.6 mg/dL (0.2-1.3); Total Protein 5.4 g/dL (6.3-8.2)
[2018-09-26] MEDS ORDERED: MECLIZINE 12.5 MG TAB PO STA (07:12)
--- NOTE | 2018-09-26 07:38 | CT ---
EXAMINATION TYPE: CT brain wo con DATE OF EXAM: 09/26/2018 COMPARISON: 07/24/2018 HISTORY: Dizziness CT DLP: 1201.4 mGycm Automated exposure control for dose reduction was used. FINDINGS: Prominent perivascular spaces surrounding the inferior right basal ganglia as seen on the prior. Conf luent patchy areas of hypoattenuation are seen in the periventricular and subcortical white matter. T here is symmetric prominence of the peripheral sulci and ventricular system. No acute intracranial he morrhage, midline shift or mass effect. No suspicious extra-axial fluid collection. Calvarium is inta ct. There is severe pansinusitis with circumferential mucosal thickening of the ethmoid, maxillary, s phenoid, and frontal sinuses. Inspissated secretions are noted within the right maxillary sinus. Mast oid air cells are well aerated. IMPRESSION: 1. NO ACUTE INFARCT, MIDLINE SHIFT OR MASS EFFECT. 2. SEVERE PANSINUSITIS. 3. AGE-RELATED VOLUME LOSS AND MODERATE BURDEN NONSPECIFIC WHITE MATTER CHANGES SEEN ON THE PRIOR OF 07/24/2018.
[2018-09-26 09:15] LABS: Appearance,Urine Clear (Clear); Bilirubin,Urine Negative (Negative); Blood,Urine Negative (Negative); Color,Urine Light Yellow; Glucose,Urine (UA) Negative (Negative); Ketones,Urine Negative (Negative); Leukocyte Esterase,Urine Negative (Negative); Nitrite,Urine Negative (Negative); PH, Urine 6.5 (5.0-8.0); Protein,Urine Negative (Negative); Specific Gravity,Urine 1.013 (1.001-1.035); Urobilinogen,Urine <2.0 mg/dL (<2.0)
== END 2018-09-26 12:20 | disposition home or self-care (01) ==
LOC: EC 05:51
DX: J01.40 Acute pansinusitis, unspecified (principal); J44.9 Chronic obstructive pulmonary disease, unspecified; I13.0 Hypertensive heart and chronic kidney disease with heart failure and stage 1 through stage 4 chronic kidney disease, or unspecified chronic kidney disease; E11.22 Type 2 diabetes mellitus with diabetic chronic kidney disease; N18.3 Chronic kidney disease, stage 3 (moderate); I50.9 Heart failure, unspecified; E78.5 Hyperlipidemia, unspecified; E11.39 Type 2 diabetes mellitus with other diabetic ophthalmic complication; H42 Glaucoma in diseases classified elsewhere; F32.9 Major depressive disorder, single episode, unspecified; Z79.84 Long term (current) use of oral hypoglycemic drugs; Z79.51 Long term (current) use of inhaled steroids; Z79.82 Long term (current) use of aspirin; Z79.899 Other long term (current) drug therapy; Z88.5 Allergy status to narcotic agent; Z88.6 Allergy status to analgesic agent; Z86.73 Personal history of transient ischemic attack (TIA), and cerebral infarction without residual deficits; Z87.891 Personal history of nicotine dependence
CPT/HCPCS: 36415; 70450; 80053; 81003; 85025; 93005; 96360; 99284

== ENCOUNTER 2018-10-13 20:25 | Inpatient (IN) | payer MEDICARE, OTHER ==
--- NOTE | 2018-10-13 21:19 | ED ---
General Adult HPI - General Chief complaint: Altered Mental Status Stated complaint: Altered Mental Status Time Seen by Provider: 10/13/18 21:07 Source: EMS Mode of arrival: EMS Limitations: altered mental status - History of Present Illness Initial comments: Reports a pleasantly demented 73-year-old gentleman whose baseline is to be alert and oriented 1 but to be social. Patient is brought to the emergency department today by [facility] for evaluation of change in behavior. Caregivers reported to EMS that the patient usually is social after mealtime however he went directly to bed after supper and seemed to be more sleepy than usual he didn't seem like himself so this in the ER for evaluation. Did report that the patient did come out of his room for all 3 meals today and ate all 3 meals. I haven't noticed any nausea vomiting diarrhea. She is able to state his name when asked if he is in pain patient says he has but does not localize does not offer any other complaints. - Related Data Home Medications Medication Instructions Recorded Confirmed Aspirin 81 mg PO DAILY@89908/11/17 10/13/18 Pantoprazole [Protonix] 40 mg PO DAILY@89908/20/17 10/13/18 Budesonide [Pulmicort] 1 mg INHALATION RT-BID@899,209901/08/18 10/13/18 Ferrous Sulfate [Iron (65 MG 325 mg PO DAILY@89901/08/18 10/13/18 Elemental)] Lactulose 10 gm PO BID@09,209904/17/18 10/13/18 Ammonium Lactate Lotion 1 applic TOPICAL Q12H PRN 05/10/18 10/13/18 [Lac-Hydrin 12% Lotion] Atorvastatin Calcium [Lipitor] 10 mg PO HS@209905/10/18 10/13/18 Pioglitazone HCl [Actos] 15 mg PO DAILY@89905/10/18 10/13/18 Metoprolol Tartrate [Lopressor] 12.5 mg PO BID@899,209906/18/18 10/13/18 Amiodarone [Cordarone] 100 mg PO DAILY@89907/24/18 10/13/18 Citalopram Hydrobromide [CeleXA] 10 mg PO DAILY@89907/24/18 10/13/18 Ipratropium-Albuterol Nebulize 3 ml INHALATION RT-Q6H PRN 07/24/18 10/13/18 [Duoneb 0.5 mg-3 mg/3 ml Soln] Lisinopril-Hctz 10-12.5 mg 0.5 tab PO DAILY@0900 07/24/18 10/13/18 [Zestoretic 10-12.5] Lactose-Reduced Food [Ensure Plus] 120 ml PO TID@0900,1300,2100 09/26/18 10/13/18 Meclizine [Antivert] 25 mg PO TID@0900,1300,2100 10/13/18 10/13/18 Allergies Allergy/AdvReac Type Severity Reaction Status Date / Time hydrocodone bitartrate AdvReac Nausea Verified 10/13/18 23:15 [From Vicodin] Review of Systems ROS Statement: Those systems with pertinent positive or pertinent negative responses have been documented in the HPI. ROS Other: All systems not noted in ROS Statement are negative. Limitations: ROS unobtainable due to patients medical condition (Dementia) Past Medical History Past Medical History: Atrial Fibrillation, COPD, CVA/TIA, Diabetes Mellitus, Eye Disorder, Hyperlipidemia, Hypertension, Memory Impairment, Pneumonia, Renal Disease, Syncope Additional Past Medical History / Comment(s): Pt recently admitted to [facility] on 06/01/18 with bilateral pneumonia/CHF. Other hx: NIDDM type II, legally blind bilaterally secondary to complications of glaucoma; hard of hearing, right-sided deficits from previous CVA, hx of falls, chronic renal failure stage III, DDD, hx of T12 compression fx, spondylothesis, urinary/bowel incontinence, bed bound w/ assist to chair, A+O to person/place = baseline, anemia, vitamin D deficiency, hx of respiratory failure w/ hypoxia. History of Any Multi-Drug Resistant Organisms: None Reported Past Surgical History: Cholecystectomy Additional Past Surgical History / Comment(s): Laparoscopic cholecystectomy Past Anesthesia/Blood Transfusion Reactions: No Reported Reaction Past Psychological History: Anxiety, Depression Smoking Status: Former smoker Past Alcohol Use History: None Reported Past Drug Use History: None Reported - Past Family History Father Family Medical History: Diabetes Mellitus Mother Family Medical History: Dementia, Diabetes Mellitus Brother(s) Family Medical History: Unable to Obtain General Exam - General Exam Comments Initial Comments: Physical Exam GENERAL: Patient is well-developed and well-nourished, appears to be sleeping on exam HENT: Normocephalic, Atraumatic. EYES: Bilateral cataracts PULMONARY: Unlabored respirations. No audible rales rhonchi or wheezing was noted. CARDIOVASCULAR: RRR ABDOMEN: Soft and nontender with normal bowel sounds. SKIN: Skin is pale : Deferred NEUROLOGIC: Patient is alert and oriented x1 MUSCULOSKELETAL: Lower extremity atrophy PSYCHIATRIC: Unable to assess Limitations: altered mental status Course Vital Signs 10/13/18 10/13/18 10/13/18 20:40 21:40 22:04 Temperature 99.4 F 98.8 F Pulse Rate 80 80 81 Respiratory 14 18 18 Rate Blood Pressure 124/80 112/54 126/64 O2 Sat by Pulse 100 100 100 Oximetry 10/13/18 10/13/18 10/14/18 22:41 23:43 00:52 Temperature 99.1 F Pulse Rate 81 76 57 L Respiratory 18 16 18 Rate Blood Pressure 134/71 126/81 105/54 O2 Sat by Pulse 100 100 100 Oximetry 10/14/18 10/14/18 03:03 03:58 Temperature 97.9 F 97.9 F Pulse Rate 76 77 Respiratory 18 18 Rate Blood Pressure 125/64 136/76 O2 Sat by Pulse 100 100 Oximetry Medical Decision Making - Medical Decision Making Patient was seen and evaluated history was obtained from EMS the patient and review of medical record This is a pleasantly demented 73-year-old gentleman who has been less active and interactive than usual Basic labs were ordered Chest x-ray no acute findings Labs with worsening anemia worsening kidney function and the dehydration Urinalysis no signs of infection CT head with no acute findings Due to patient's altered mental status of unknown etiology he'll be placed observation unit for further evaluation - Lab Data Result diagrams: 10/13/18 21:20 10/13/18 21:20 Lab Results 10/13/18 10/13/18 10/13/18 Range/Units 21:20 21:20 21:20 WBC 9.9 (3.8-10.6) k/uL RBC 2.73 L (4.30-5.90) m/uL Hgb 7.5 L (13.0-17.5) gm/dL Hct 25.1 L (39.0-53.0) % MCV 91.9 (80.0-100.0) fL MCH 27.6 (25.0-35.0) pg MCHC 30.1 L (31.0-37.0) g/dL RDW 13.5 (11.5-15.5) % Plt Count 314 (150-450) k/uL Neutrophils % 83 % Lymphocytes % 6 % Monocytes % 9 % Eosinophils % 1 % Basophils % 0 % Neutrophils # 8.2 H (1.3-7.7) k/uL Lymphocytes # 0.6 L (1.0-4.8) k/uL Monocytes # 0.9 (0-1.0) k/uL Eosinophils # 0.1 (0-0.7) k/uL Basophils # 0.0 (0-0.2) k/uL Hypochromasia Slight Sodium 137 (137-145) mmol/L Potassium 5.0 (3.5-5.1) mmol/L Chloride 107 (98-107) mmol/L Carbon Dioxide 21 L (22-30) mmol/L Anion Gap 9 mmol/L BUN 48 H (9-20) mg/dL Creatinine 2.21 H (0.66-1.25) mg/dL Est GFR (CKD-EPI)AfAm 33 (>60 ml/min/1.73 sqM) Est GFR (CKD-EPI)NonAf 28 (>60 ml/min/1.73 sqM) Glucose 187 H (74-99) mg/dL Plasma Lactic Acid Daniel 1.0 (0.7-2.0) mmol/L Calcium 8.1 L (8.4-10.2) mg/dL Total Bilirubin 0.4 (0.2-1.3) mg/dL AST 15 L (17-59) U/L ALT 17 L (21-72) U/L Alkaline Phosphatase 81 (38-126) U/L Troponin I (0.000-0.034) ng/mL Total Protein 5.5 L (6.3-8.2) g/dL Albumin 3.0 L (3.5-5.0) g/dL Urine Color Urine Appearance (Clear) Urine pH (5.0-8.0) Ur Specific [place] (1.001-1.035) Urine Protein (Negative) Urine Glucose (UA) (Negative) Urine Ketones (Negative) Urine Blood (Negative) Urine Nitrite (Negative) Urine Bilirubin (Negative) Urine Urobilinogen (<2.0) mg/dL Ur Leukocyte Esterase (Negative) Urine RBC (0-5) /hpf Urine WBC (0-5) /hpf Amorphous Sediment (None) /hpf Hyaline Casts (0-2) /lpf 10/13/18 10/13/18 Range/Units 21:20 21:45 WBC (3.8-10.6) k/uL RBC (4.30-5.90) m/uL Hgb (13.0-17.5) gm/dL Hct (39.0-53.0) % MCV (80.0-100.0) fL MCH (25.0-35.0) pg MCHC (31.0-37.0) g/dL RDW (11.5-15.5) % Plt Count (150-450) k/uL Neutrophils % % Lymphocytes % % Monocytes % % Eosinophils % % Basophils % % Neutrophils # (1.3-7.7) k/uL Lymphocytes # (1.0-4.8) k/uL Monocytes # (0-1.0) k/uL Eosinophils # (0-0.7) k/uL Basophils # (0-0.2) k/uL Hypochromasia Sodium (137-145) mmol/L Potassium (3.5-5.1) mmol/L Chloride (98-107) mmol/L Carbon Dioxide (22-30) mmol/L Anion Gap mmol/L BUN (9-20) mg/dL Creatinine (0.66-1.25) mg/dL Est GFR (CKD-EPI)AfAm (>60 ml/min/1.73 sqM) Est GFR (CKD-EPI)NonAf (>60 ml/min/1.73 sqM) Glucose (74-99) mg/dL Plasma Lactic Acid Daniel (0.7-2.0) mmol/L Calcium (8.4-10.2) mg/dL Total Bilirubin (0.2-1.3) mg/dL AST (17-59) U/L ALT (21-72) U/L Alkaline Phosphatase (38-126) U/L Troponin I <0.012 (0.000-0.034) ng/mL Total Protein (6.3-8.2) g/dL Albumin (3.5-5.0) g/dL Urine Color Yellow Urine Appearance Cloudy (Clear) Urine pH 5.0 (5.0-8.0) Ur Specific [place] 1.019 (1.001-1.035) Urine Protein 1+ H (Negative) Urine Glucose (UA) Negative (Negative) Urine Ketones Negative (Negative) Urine Blood Small H (Negative) Urine Nitrite Negative (Negative) Urine Bilirubin Negative (Negative) Urine Urobilinogen 2.0 (<2.0) mg/dL Ur Leukocyte Esterase Negative (Negative) Urine RBC 31 H (0-5) /hpf Urine WBC 1 (0-5) /hpf Amorphous Sediment Rare H (None) /hpf Hyaline Casts 10 H (0-2) /lpf Disposition Clinical Impression: Altered mental status Disposition: ADMITTED IP TO THIS [facility] Condition: Serious
[2018-10-13 21:34] LABS: Basophils % (A) 0 %; Eosinophils # (A) 0.1 k/uL (0-0.7); Eosinophils % (A) 1 %; HCT 25.1 % (39.0-53.0); HGB 7.5 gm/dL (13.0-17.5); Hypochromasia Slight; Lymphocytes # (A) 0.6 k/uL (1.0-4.8); Lymphocytes % (A) 6 %; MCH 27.6 pg (25.0-35.0); MCHC 30.1 g/dL (31.0-37.0); MCV 91.9 fL (80.0-100.0); Mean Platelet Volume 7.7; Monocytes # (A) 0.9 k/uL (0-1.0); Monocytes % (A) 9 %; Neutrophils # (A) 8.2 k/uL (1.3-7.7); Neutrophils % (A) 83 %; Platelet Count 314 k/uL (150-450); RBC 2.73 m/uL (4.30-5.90); RDW 13.5 % (11.5-15.5); WBC 9.9 k/uL (3.8-10.6)
[2018-10-13 21:44] LABS: Calcium 8.1 mg/dL (8.4-10.2); Total Bilirubin 0.4 mg/dL (0.2-1.3); Total Protein 5.5 g/dL (6.3-8.2)
[2018-10-13 22:04] LABS: Amorphous Sediment,Urine Rare /hpf; Appearance,Urine Cloudy (Clear); Bilirubin,Urine Negative (Negative); Blood,Urine Small (Negative); Color,Urine Yellow; Glucose,Urine (UA) Negative (Negative); Hyaline Casts,Urine 10 /lpf (0-2); Ketones,Urine Negative (Negative); Leukocyte Esterase,Urine Negative (Negative); Nitrite,Urine Negative (Negative); Protein,Urine 1+ (Negative); RBC,Urine 31 /hpf (0-5); Specific Gravity,Urine 1.019 (1.001-1.035)
[2018-10-13] MEDS ORDERED: SODIUM CHLORIDE 0.9% 1,000 ML IV ONE (22:38)
--- NOTE | 2018-10-14 01:54 | XR ---
EXAM: XR Chest, 1 View CLINICAL HISTORY: ITS.REASON XR Reason: Pain TECHNIQUE: Frontal view of the chest. COMPARISON: Chest x-ray dated 07/24/2018. FINDINGS: Lungs: Mild bibasilar presumed atelectasis. Lungs are otherwise clear. Pleural space: Unremarkable. No pneumothorax. Heart: Moderate cardiomegaly. Mediastinum: Unremarkable. Bones/joints: Unremarkable. Upper abdomen: Asymmetric elevation of the right hemidiaphragm. IMPRESSION: No acute findings.
[2018-10-14] MEDS ORDERED: NALOXONE 0.4 MG/ML 1 ML VIAL IV PRN (02:49)
[2018-10-14] MEDS: SODIUM CHLORIDE 0.9% 1,000 ML IV SCH ×2 (03:03→13:15)
--- NOTE | 2018-10-14 05:33 | CT ---
EXAM: CT Head Without Intravenous Contrast CLINICAL HISTORY: ITS.REASON CT Reason: Confusion TECHNIQUE: Axial computed tomography images of the head/brain without intravenous contrast. CTDI is 45.2 mGy and DLP is 995.5 mGy-cm. This CT exam was performed using one or more of the following dose reduction techniques: automated exposure control, adjustment of the mA and/or kV according to patient size, and/or use of iterative reconstruction technique. COMPARISON: CT head dated 07/24/2018. FINDINGS: Brain: No evidence of acute intracranial hemorrhage. Mild to moderate presumed small vessel ischemic disease and multiple small chronic appearing lacunar infarcts. Accurate comparison with the prior exam is limited by poor patient positioning on that exam. No mass effect or herniation. Ventricles: Unremarkable. No ventriculomegaly. Bones/joints: No acute fracture. Soft tissues: Unremarkable. Vasculature: Calcification of the distal internal carotid arteries and vertebrobasilar system. Sinuses: Minimal scattered paranasal sinus mucosal thickening as well as secretions in the right maxillary sinus. This may represent sinusitis in the appropriate setting. Mastoid air cells: Unremarkable as visualized. IMPRESSION: 1. No evidence of acute intracranial hemorrhage. 2. Mild to moderate presumed small vessel ischemic disease and multiple small chronic appearing lacunar infarcts. Accurate comparison with the prior exam is limited by poor patient positioning on that exam. 3. Minimal scattered paranasal sinus mucosal thickening as well as secretions in the right maxillary sinus. This may represent sinusitis in the appropriate setting.
[2018-10-14 07:38] LABS: Glucose,Whole Blood 153 mg/dL (75-99)
[2018-10-14] MEDS ORDERED: LISINOPRIL-HCTZ 10-12.5 MG 1 EACH TAB PO SCH (09:00)
[2018-10-14] MEDS ORDERED: AMMONIUM LACTATE 12% LOTION 225 GM BTL TOPICAL PRN (10:17)
[2018-10-14] MEDS: PIOGLITAZONE 15 MG TAB PO SCH (11:03)
[2018-10-14] MEDS: CITALOPRAM HYDROBROMIDE 10 MG TAB PO SCH (11:03)
[2018-10-14] MEDS: AMIODARONE 100 MG TAB PO SCH (11:04)
[2018-10-14] MEDS: METOPROLOL TARTRATE 12.5 MG TAB PO SCH ×2 (11:10→22:02)
[2018-10-14] MEDS: PANTOPRAZOLE 40 MG TABLET PO SCH (11:10)
[2018-10-14] MEDS: LACTULOSE 20 GM/30 ML CUP PO SCH ×2 (11:10→22:02)
[2018-10-14 11:51] LABS: Glucose,Whole Blood 149 mg/dL (75-99)
[2018-10-14] MEDS ORDERED: NON-FORMULARY DRUG (Lactose-Reduced Food [Ensure Plus] 120 ML) PO SCH (13:00)
[2018-10-14] MEDS: INSULIN ASPART (NovoLOG) 100 UNIT/ML VIAL SQ SCH ×3 (13:06→22:03)
[2018-10-14] MEDS: IPRATROPIUM-ALBUTEROL 3 ML NEB INHALATION PRN ×2 (13:15→21:07)
[2018-10-14] MEDS: BUDESONIDE 1 MG/2 ML NEBU INHALATION SCH ×2 (13:15→21:07)
[2018-10-14 16:43] LABS: Glucose,Whole Blood 167 mg/dL (75-99)
[2018-10-14 20:30] LABS: Glucose,Whole Blood 159 mg/dL (75-99)
[2018-10-14] MEDS: ATORVASTATIN 10 MG TAB PO SCH (22:03)
--- NOTE | 2018-10-14 22:32 | HP ---
HISTORY AND PHYSICAL DATE OF ADMISSION: October 14, 2018. DATE OF SERVICE: October 14, 2018. PRESENTING COMPLAINT: Altered mental status, tired. HISTORY OF PRESENTING COMPLAINT: This is a 73-year-old patient whose chronic stable medical conditions include congestive heart failure, EF 50-55 percent, hypertensive heart disease, chronic right- sided weakness from a stroke, COPD, diabetes mellitus type 2, hypertension, hyperlipidemia, chronic T12 compression fracture, urine and bowel incontinence, chronic medical debility, legally blind, chronic kidney disease stage 3 from nephrosclerosis. The patient was sent in from the [facility] not being himself, decreased oral intake, more tired and lethargic. Patient normally more talkative. The patient is actually not talking much. I know him from before. Answering only monosyllables. The patient states his appetite is okay. Does feel a bit weak and tired. No fever. No chills. Minimal. No cough. REVIEW OF SYSTEMS: CONSTITUTIONAL: Tired. HEENT: Blind. RESPIRATORY: None. CARDIOVASCULAR: None. GASTROINTESTINAL: None. GENITOURINARY: None. MUSCULOSKELETAL: Pain in joints. DERMATOLOGICAL, HEMATOLOGICAL, LYMPHATICS: None. PSYCHIATRY: Able to answer simple questions. NEUROLOGICAL: Some chronic left-sided weakness. PAST MEDICAL HISTORY: Of atrial fibrillation, COPD, stroke, diabetes type 2, hypertension, hyperlipidemia, legally blind bilaterally, hard of hearing, history of falls, chronic kidney disease stage 3, T2 compression fracture, urine and bowel incontinence, not able to ambulate, vitamin D deficiency. PAST SURGICAL HISTORY: Cholecystectomy. SOCIAL HISTORY: Lives at [facility]. Smoked for 47 years, stopped in 2012. Did smoke a pipe. Alcohol none. FAMILY HISTORY: Diabetes. HOME MEDICATIONS: 1. Actos 50 mg p.o. daily. 2. Protonix 40 mg p.o. daily. 3. Lopressor 12.5 p.o. b.i.d. 4. Antivert 25 p.o. b.i.d. 5. Zestoretic 10/12.5 half a tab p.o. daily. 6. Lactulose 10 grams p.o. b.i.d. 7. Ensure Plus 120 mL p.o. t.i.d. 8. DuoNeb 3 mL q.6h p.r.n. 9. Iron 325 p.o. daily. 10.Celexa 10 mg p.o. daily. 11.Pulmicort 1 mg nebulizer b.i.d. 12.Lipitor 10 mg q.h.s. 13.Aspirin 81 mg p.o. daily. 14.Lac-Hydrin 12% topical q.12h p.r.n. 15.Amiodarone 100 mg p.o. daily. ALLERGIES: TO VICODIN CAUSING NAUSEA. PHYSICAL EXAMINATION: VITAL SIGNS: Temperature 98.3, pulse 77, respirations 17, blood pressure 120/69, pulse 100 percent on room air. GENERAL APPEARANCE: Average build, lying in bed, tired- appearing. EYES: Pupils equal. Conjunctivae dirty appearing. Poor eyesight. HEENT: External appearance of nose and ears normal. Oral cavity dry. NECK: JVD not raised. Mass not palpable. RESPIRATORY: Effort normal. LUNGS: Diminished breath sounds. CARDIOVASCULAR: 1st and 2nd sounds normal. No edema. ABDOMEN: Soft, nontender. Liver and spleen not palpable. LYMPHATIC: No lymph nodes palpable in neck or axillae. PSYCHIATRY: The patient is speaking less than his normal self. NEUROLOGICAL: Patient is legally blind, otherwise moving his limbs. INVESTIGATIONS: White count 9.9, hemoglobin 7.5, it was 9.8 on July 24, 2018, platelets 314, potassium 5, bicarb is 21, BUN 48, creatinine 2.21. It was 38 and 1.51 and 3119. UA positive for leukocyte esterase, 1 WBC, hyaline casts 10. ASSESSMENT: 1. Acute renal failure likely prerenal from decreased oral intake and it may be noted that the patient is also on Zestoretic. 2. Chronic congestive heart failure from diastolic dysfunction. Ejection fraction 50- 55 percent. 3. Hypertensive heart disease with chronic kidney disease. 4. 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 5. Chronic obstructive pulmonary disease in an ex-smoker. 6. Diabetes mellitus type 2 on oral hypoglycemic. 7. Hyperlipidemia. 8. Essential hypertension. 9. Chronic T12 compression fracture. 10.Urine and bowel incontinence. 11.Chronic medical debility. 12.Legally blind, patient can only perceive light. 13.Chronic medical debility patient needs assistance for transfers. 14.Chronic kidney disease stage 3 from nephrosclerosis. 15.Normocytic anemia likely from underlying chronic kidney disease. PLAN: Home medications will be resumed. Will give patient IV fluids. We will hold off patient's Zestoretic for right now. Accu-Cheks will be followed. Repeat hemoglobin tomorrow. Copy to Dr. Azul. KASHMIR / LIO: [id number] /
[2018-10-15 07:34] LABS: Basophils % (A) 0 %; Eosinophils % (A) 0 %; HCT 25.2 % (39.0-53.0); HGB 7.6 gm/dL (13.0-17.5); Hypochromasia Moderate; Lymphocytes # (A) 1.1 k/uL (1.0-4.8); Lymphocytes % (A) 12 %; MCH 28.1 pg (25.0-35.0); MCHC 30.3 g/dL (31.0-37.0); Mean Platelet Volume 7.7; Monocytes # (A) 0.9 k/uL (0-1.0); Monocytes % (A) 10 %; Neutrophils % (A) 76 %; Platelet Count 326 k/uL (150-450); RBC 2.71 m/uL (4.30-5.90); RDW 13.1 % (11.5-15.5); WBC 9.2 k/uL (3.8-10.6)
[2018-10-15 08:01] LABS: Albumin 2.8 g/dL (3.5-5.0); Calcium 8.5 mg/dL (8.4-10.2); Magnesium 1.9 mg/dL (1.6-2.3); Potassium 5.6 mmol/L (3.5-5.1); Total Bilirubin 0.5 mg/dL (0.2-1.3); Total Protein 5.2 g/dL (6.3-8.2)
[2018-10-15 08:12] LABS: Glucose,Whole Blood 154 mg/dL (75-99)
[2018-10-15] MEDS: INSULIN ASPART (NovoLOG) 100 UNIT/ML VIAL SQ SCH ×4 (08:33→22:09)
[2018-10-15] MEDS: METOPROLOL TARTRATE 12.5 MG TAB PO SCH ×2 (08:33→22:09)
[2018-10-15] MEDS: ASPIRIN 81 MG PO SCH (08:33)
[2018-10-15] MEDS: LACTULOSE 20 GM/30 ML CUP PO SCH ×2 (08:34→22:10)
[2018-10-15] MEDS: FERROUS SULFATE 325 MG TAB PO SCH (08:34)
[2018-10-15] MEDS: PIOGLITAZONE 15 MG TAB PO SCH (08:34)
[2018-10-15] MEDS: CITALOPRAM HYDROBROMIDE 10 MG TAB PO SCH (08:34)
[2018-10-15] MEDS: PANTOPRAZOLE 40 MG TABLET PO SCH (08:34)
[2018-10-15] MEDS: AMIODARONE 100 MG TAB PO SCH (08:34)
[2018-10-15] MEDS: SODIUM CHLORIDE 0.9% 1,000 ML IV SCH ×3 (08:53→22:09)
[2018-10-15] MEDS: BUDESONIDE 1 MG/2 ML NEBU INHALATION SCH ×2 (09:03→20:01)
[2018-10-15] MEDS: IPRATROPIUM-ALBUTEROL 3 ML NEB INHALATION PRN ×2 (09:03→20:01)
[2018-10-15 11:38] LABS: Glucose,Whole Blood 166 mg/dL (75-99)
[2018-10-15 16:37] LABS: Glucose,Whole Blood 149 mg/dL (75-99)
[2018-10-15 21:19] LABS: Glucose,Whole Blood 140 mg/dL (75-99)
[2018-10-15] MEDS: ATORVASTATIN 10 MG TAB PO SCH (22:09)
[2018-10-16] MEDS ORDERED: SODIUM POLYSTYRENE SULFONATE 15 GM/60 ML BOTTLE PO STA (00:14)
[2018-10-16] MEDS: SODIUM CHLORIDE 0.9% 1,000 ML IV SCH ×3 (00:56→17:29)
--- NOTE | 2018-10-16 06:55 | PN ---
PROGRESS NOTE DATE OF SERVICE: 10/15/2018 PRESENTING COMPLAINT: Renal failure. INTERVAL HISTORY: This patient with altered mental status, found to be in acute renal failure. I saw this patient earlier on 10/15/2018. Getting IV fluids. Renal function is still getting worse though patient is a little bit more awake, sitting up. This patient did tolerate some diet. REVIEW OF SYSTEMS: Done for constitutional, cardiovascular, GI, pulmonary; relevant findings as above. CURRENT MEDICATIONS: Current medications are reviewed that include IV fluids. PHYSICAL EXAMINATION: On examination, temperature 99, pulse 77, respirations 18, blood pressure 118/62, pulse ox 99% on 2 L. GENERAL APPEARANCE: Sitting up, a bit more awake. EYES: Pupils equal. Conjunctivae dirty appearing. NECK: JVD not raised. Mass not palpable. RESPIRATORY: Effort normal. LUNGS: Decreased breath sounds. CARDIOVASCULAR: First and second sounds normal. No edema. ABDOMEN: Soft, nontender. Liver and spleen not palpable. PSYCHIATRY: Patient answering simple questions. INVESTIGATIONS: White count 9.2, hemoglobin 7.6. Potassium 5.6. BUN 60, creatinine 2.81. ASSESSMENT: 1. Acute renal failure prerenal from decreased oral intake, worsening. Patient had also been on Zestoretic, currently numbers are worsening. 2. Chronic congestive heart failure from diastolic dysfunction, ejection fraction 50% to 55%. 3. Hypertensive heart disease with chronic kidney disease. 4. 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 5. Chronic obstructive pulmonary disease in an ex-smoker. 6. Diabetes mellitus type 2 on oral hypoglycemic. 7. Hyperlipidemia. 8. Essential hypertension. 9. Chronic T12 compression fracture. 10.Urinary and bowel incontinence. 11.Chronic medical debility. 12.Legally blind, can only perceive light. 13.Chronic medical debility. Patient needs assistance for transfers. 14.Chronic kidney disease stage 3 from nephrosclerosis at baseline. 15.Normocytic anemia probably from underlying chronic kidney disease. PLAN: We will increase patient's IV fluids to 125 mL an hour. Repeat electrolytes in the morning. Will follow closely. We will also give patient Kayexalate for hyperkalemia. MMODL / IJN: [id number] /
[2018-10-16] MEDS: ASPIRIN 81 MG PO SCH (08:00)
[2018-10-16] MEDS: CITALOPRAM HYDROBROMIDE 10 MG TAB PO SCH (08:00)
[2018-10-16] MEDS: METOPROLOL TARTRATE 12.5 MG TAB PO SCH ×2 (08:00→22:27)
[2018-10-16] MEDS: PANTOPRAZOLE 40 MG TABLET PO SCH (08:00)
[2018-10-16] MEDS: FERROUS SULFATE 325 MG TAB PO SCH (08:00)
[2018-10-16] MEDS: PIOGLITAZONE 15 MG TAB PO SCH (08:00)
[2018-10-16] MEDS: AMIODARONE 100 MG TAB PO SCH (08:01)
[2018-10-16] MEDS: LACTULOSE 20 GM/30 ML CUP PO SCH ×2 (08:02→22:28)
[2018-10-16] MEDS: INSULIN ASPART (NovoLOG) 100 UNIT/ML VIAL SQ SCH ×4 (08:02→22:24)
[2018-10-16 08:11] LABS: Glucose,Whole Blood 129 mg/dL (75-99)
[2018-10-16 08:28] LABS: Calcium 8.8 mg/dL (8.4-10.2)
[2018-10-16] MEDS: BUDESONIDE 1 MG/2 ML NEBU INHALATION SCH ×2 (08:49→21:12)
[2018-10-16] MEDS: IPRATROPIUM-ALBUTEROL 3 ML NEB INHALATION PRN ×2 (08:49→21:12)
[2018-10-16 09:16] LABS: Basophils % (A) 0 %; Eosinophils # (A) 0.1 k/uL (0-0.7); Eosinophils % (A) 1 %; HCT 26.4 % (39.0-53.0); Hypochromasia Slight; Lymphocytes # (A) 1.2 k/uL (1.0-4.8); Lymphocytes % (A) 13 %; MCHC 30.2 g/dL (31.0-37.0); MCV 92.6 fL (80.0-100.0); Monocytes # (A) 0.8 k/uL (0-1.0); Monocytes % (A) 10 %; Neutrophils # (A) 6.4 k/uL (1.3-7.7); Neutrophils % (A) 73 %; Platelet Count 389 k/uL (150-450); RBC 2.85 m/uL (4.30-5.90); RDW 13.8 % (11.5-15.5); WBC 8.7 k/uL (3.8-10.6)
[2018-10-16 09:48] LABS: Crenated RBC Present; Poikilocytosis (M) Present
[2018-10-16 09:49] LABS: RBC Fragments Present
[2018-10-16 11:34] LABS: Glucose,Whole Blood 186 mg/dL (75-99)
[2018-10-16 16:43] LABS: Glucose,Whole Blood 158 mg/dL (75-99)
[2018-10-16 21:20] LABS: Glucose,Whole Blood 149 mg/dL (75-99)
[2018-10-16] MEDS: ATORVASTATIN 10 MG TAB PO SCH (22:27)
[2018-10-17] MEDS: SODIUM CHLORIDE 0.9% 1,000 ML IV SCH ×4 (01:21→20:26)
[2018-10-17 07:13] LABS: Glucose,Whole Blood 161 mg/dL (75-99)
[2018-10-17 08:37] LABS: Calcium 8.6 mg/dL (8.4-10.2); Potassium 4.8 mmol/L (3.5-5.1)
[2018-10-17] MEDS: IPRATROPIUM-ALBUTEROL 3 ML NEB INHALATION PRN ×2 (09:01→21:54)
[2018-10-17] MEDS: BUDESONIDE 1 MG/2 ML NEBU INHALATION SCH ×2 (09:01→21:54)
--- NOTE | 2018-10-17 09:26 | PN ---
PROGRESS NOTE DATE OF SERVICE: 10/16/2018 PRESENTING COMPLAINT: Renal failure. INTERVAL HISTORY: This patient presented with altered mental status, found to be in acute renal failure. Doing better. Sitting up in a chair. Did tolerate a diet. Getting IV fluids. The patient at baseline is not much communicative. REVIEW OF SYSTEMS: Done for constitutional, cardiovascular, GI, pulmonary and relevant findings as above. CURRENT MEDICATIONS: Reviewed that include IV fluids. PHYSICAL EXAMINATION: VITAL SIGNS: Temperature 97.5, pulse 79, respiratory 18, blood pressure 142/71, pulse ox 100 percent on 2 L. GENERAL APPEARANCE: Sitting up, awake. EYES: Conjunctivae dirty appearing. NECK: JVD unable to assess. Mass not palpable. RESPIRATORY effort: Normal. LUNGS: Decreased breath sounds. CARDIOVASCULAR: First and second sounds normal. No edema. ABDOMEN: Soft, nontender. Liver and spleen not palpable. PSYCHIATRY: Answering some questions. INVESTIGATIONS: BUN 69, creatinine 2.72. ASSESSMENT: 1. Renal failure prerenal from decreased oral intake seems to be plateauing off. 2. Chronic congestive heart failure, diastolic dysfunction. Ejection fraction 50-55 percent. 3. Hypertensive heart disease with chronic kidney disease. 4. 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 5. Chronic obstructive pulmonary disease in an ex-smoker. 6. Diabetes mellitus type 2 on oral hypoglycemic. 7. Hyperlipidemia. 8. Essential hypertension. 9. Chronic T12 compression fracture. 10.Urinary and bowel incontinence. 11.Chronic medical debility. 12.Legally blind can only perceive light. 13.Chronic medical debility patient needs assistance for transfers. 14.Chronic kidney disease stage 3 from nephrosclerosis at baseline. 15.Normocytic anemia from underlying chronic kidney disease. PLAN: Continue with IV fluids. Hopefully expect renal function to start significantly improve by tomorrow. MMODL / IJN: [id number] /
[2018-10-17] MEDS: METOPROLOL TARTRATE 12.5 MG TAB PO SCH ×2 (10:46→20:25)
[2018-10-17] MEDS: LACTULOSE 20 GM/30 ML CUP PO SCH ×2 (10:46→20:25)
[2018-10-17] MEDS: PANTOPRAZOLE 40 MG TABLET PO SCH (10:46)
[2018-10-17] MEDS: FERROUS SULFATE 325 MG TAB PO SCH (10:46)
[2018-10-17] MEDS: ASPIRIN 81 MG PO SCH (10:47)
[2018-10-17] MEDS: AMIODARONE 100 MG TAB PO SCH (10:47)
[2018-10-17] MEDS: CITALOPRAM HYDROBROMIDE 10 MG TAB PO SCH (10:47)
[2018-10-17] MEDS: PIOGLITAZONE 15 MG TAB PO SCH (10:47)
[2018-10-17 12:01] LABS: Glucose,Whole Blood 162 mg/dL (75-99)
--- NOTE | 2018-10-17 13:14 | CDI ---
Documentation Clarification Form Date: 10/17/2018 12:56:52 PM From: aSrah Ireland RN CCDS Admit Date: 10/16/2018 9:50:00 AM Patient Name: Denis Barajas Visit Number: [id number] Discharge Date: ATTENTION: The Clinical Documentation Specialists (CDI) and [facility] Coding Staff appreciate your assistance in clarifying documentation. Please respond to the clarification below the line at the bottom and electronically sign. The CDI & [facility] Coding staff will review the response and follow-up if needed. Please note: Queries are made part of the Legal Health Record. If you have any questions, please contact the author of this message via ITS. Dr. Luis Rendon Altered Mental Status was documented in the ED note; H & P and your progress notes. History/Risk Factors: 73 year old male presents to the ED via EMS from [facility] for Altered mental status. Patient is usually more talkative and is tired, lethargic and not talking much. Clinical Indicators: Labs: Cr 2.21; Bun 48; Bicarb 21, CT Brain: mild to moderate presumed small vessel ischemic disease and multiple small chronic appearing lacunar infarcts. Treatment: In your professional opinion, please clarify the etiology of the Altered Mental Status, if known. * Metabolic Encephalopathy (specify Type and Underlying Medical Illness) * Other condition (please specify) * Unable to determine (Last Revision: August 2017) acute metabolic encephalopathy secondary to DHAVAL,POA MTDD
[2018-10-17] MEDS: INSULIN ASPART (NovoLOG) 100 UNIT/ML VIAL SQ SCH ×4 (13:30→20:25)
[2018-10-17 17:14] LABS: Glucose,Whole Blood 160 mg/dL (75-99)
[2018-10-17 20:15] LABS: Glucose,Whole Blood 183 mg/dL (75-99)
[2018-10-17] MEDS: ATORVASTATIN 10 MG TAB PO SCH (20:25)
[2018-10-18 02:55] VITALS: RESP 18
[2018-10-18 06:45] LABS: Glucose,Whole Blood 151 mg/dL (75-99)
[2018-10-18] MEDS: IPRATROPIUM-ALBUTEROL 3 ML NEB INHALATION PRN ×2 (07:08→13:44)
[2018-10-18] MEDS: BUDESONIDE 1 MG/2 ML NEBU INHALATION SCH (07:08)
--- NOTE | 2018-10-18 07:15 | PN ---
PROGRESS NOTE DATE OF SERVICE: 10/17/2018 PRESENTING COMPLAINT: Renal failure. INTERVAL HISTORY: This patient presented with acute metabolic encephalopathy due to acute renal failure. Continues to improve, though renal function still needs to get more better. Getting IV fluids. Did tolerate some diet. Sitting up on a chair. REVIEW OF SYSTEMS: Done for constitutional, cardiovascular, GI, pulmonary; relevant findings as above. CURRENT MEDICATIONS: Current medications are reviewed that include IV fluids. PHYSICAL EXAMINATION: On examination, temperature 98.4, pulse 91, respiration 15, blood pressure 153/91, pulse ox 93% on room air. GENERAL APPEARANCE: Sitting up in a chair, awake. EYES: Pupil equal. Conjunctivae dirty appearing. NECK: JVD unable to assess. Mass not palpable. RESPIRATORY: Effort normal. LUNGS: Decreased breath sounds. CARDIOVASCULAR: First and second sounds normal. No edema. ABDOMEN: Soft, nontender. Liver and spleen not palpable. PSYCHIATRY: Answering some simple questions. INVESTIGATIONS: Potassium 4.8, BUN 68, creatinine 2.39. ASSESSMENT: 1. Acute renal failure prerenal from decreased oral intake, . 2. Acute metabolic encephalopathy from renal failure, POA, improving. 3. Chronic congestive heart failure from diastolic dysfunction, ejection fraction 50% to 55% from underlying hypertensive heart disease. 4. Hypertensive heart disease with chronic kidney disease. 5. 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 6. Chronic obstructive pulmonary disease in an ex-smoker. 7. Diabetes mellitus type 2 on oral hypoglycemic. 8. Hyperlipidemia. 9. Essential hypertension. 10.Chronic T12 compression fracture. 11.Urine and bowel incontinence. 12.Chronic medical debility. 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 14.Chronic medical debility, needs assistance for transfer. 15.Chronic kidney disease stage 3 from nephrosclerosis baseline. 16.Normocytic anemia from underlying chronic kidney disease. PLAN: Continue with IV fluids. Hoping renal function is more satisfactory by tomorrow to be discharged to the [facility]. It was 1.54 on 09/26/2018. MMODL / IJN: [id number] /
[2018-10-18] MEDS: INSULIN ASPART (NovoLOG) 100 UNIT/ML VIAL SQ SCH ×2 (07:39→13:53)
[2018-10-18 07:59] LABS: Calcium 9.1 mg/dL (8.4-10.2)
[2018-10-18] MEDS: ASPIRIN 81 MG PO SCH (09:02)
[2018-10-18] MEDS: PANTOPRAZOLE 40 MG TABLET PO SCH (09:02)
[2018-10-18] MEDS: METOPROLOL TARTRATE 12.5 MG TAB PO SCH (09:02)
[2018-10-18] MEDS: FERROUS SULFATE 325 MG TAB PO SCH (09:04)
[2018-10-18] MEDS: CITALOPRAM HYDROBROMIDE 10 MG TAB PO SCH (09:04)
[2018-10-18] MEDS: AMIODARONE 100 MG TAB PO SCH (09:04)
[2018-10-18] MEDS: PIOGLITAZONE 15 MG TAB PO SCH (09:04)
[2018-10-18 11:53] LABS: Glucose,Whole Blood 166 mg/dL (75-99)
[2018-10-18] MEDS: SODIUM CHLORIDE 0.9% 1,000 ML IV SCH (12:08)
[2018-10-18] MEDS: LACTULOSE 20 GM/30 ML CUP PO SCH (12:09)
[2018-10-18] MEDS ORDERED: METOPROLOL TARTRATE 50 MG TAB PO SCH (13:30)
[2018-10-18 13:55] VITALS: BP 181/83; TEMP 97.5
--- NOTE | 2018-10-18 13:57 | DS ---
DISCHARGE SUMMARY DATE OF ADMISSION: 10/13/2018 DATE OF DISCHARGE: 10/18/2018 FINAL DIAGNOSES: 1. Acute renal failure from decreased oral intake that is prerenal, POA. 2. Acute metabolic encephalopathy from renal failure, POA. 3. Chronic congestive heart failure from diastolic dysfunction, ejection fraction 50%- 55% from underlying hypertensive heart disease. 4. Hypertensive heart disease with chronic kidney disease. 5. 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 6. Chronic obstructive pulmonary disease in an ex-smoker. 7. Diabetes mellitus type 2 on oral hypoglycemic. 8. Hyperlipidemia. 9. Essential hypertension. 10.Chronic T12 compression fracture. 11.Urine and bowel incontinence. 12.Chronic medical debility. 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 14.Chronic medical debility, needs assistance for transfer. 15.Chronic kidney disease stage III from nephrosclerosis, baseline. 16.Normocytic anemia from underlying chronic kidney disease. HOSPITAL COURSE: This patient presented with not eating, lethargic, felt to be acute metabolic encephalopathy from acute renal failure. Baseline creatinine is normally around 2.0. Creatinine was up to 2.8, did come down to 2.19. KAMILA inhibitor was discontinued. The patient is given IV fluids, doing much better, tolerating a diet. Overall prognosis is guarded. On examination, temperature 98: Lungs decreased breath sounds. The patient is able to answer simple questions. Patient also hard of hearing. Patient's blood pressure medications adjusted today. DISCHARGE MEDICATIONS: 1. Aspirin 81 mg a day. 2. Protonix 40 mg a day. 3. Pulmicort 1 mg nebulizer b.i.d. 4. Iron 325 p.o. daily. 5. Lactulose 10 g p.o. b.i.d. 6. Lac-Hydrin 12% topical q.12 p.r.n. 7. Lipitor 10 mg q.h.s. 8. Actos 50 mg p.o. daily. 9. Cordarone 100 mg p.o. daily. 10.Celexa 10 mg p.o. daily. 11.DuoNeb q.6 p.r.n. 12.Ensure Plus 120 mL p.o. t.i.d. 13.Lopressor 50 mg b.i.d. DISPOSITION: Andrae. Follow up with Dr. Azul. LABS: CBC, BMP in 3 days. MMODL / IJN: [id number] /
[2018-10-18 14:00] VITALS: PULSE 84
== END 2018-10-18 15:40 | DRG 682 ==
LOC: EC 20:25 → 4SSUR 10-14 02:50 → OBSVTOIN 10-16 09:50
PROVIDERS: ADMIT Hospitalist; ATTEND Hospitalist
DX: N17.9 Acute kidney failure, unspecified (principal); G93.41 Metabolic encephalopathy; I13.0 Hypertensive heart and chronic kidney disease with heart failure and stage 1 through stage 4 chronic kidney disease, or unspecified chronic kidney disease; I50.32 Chronic diastolic (congestive) heart failure; M48.54XA Collapsed vertebra, not elsewhere classified, thoracic region, initial encounter for fracture; I69.951 Hemiplegia and hemiparesis following unspecified cerebrovascular disease affecting right dominant side; N18.3 Chronic kidney disease, stage 3 (moderate); E11.22 Type 2 diabetes mellitus with diabetic chronic kidney disease; E86.0 Dehydration; I48.91 Unspecified atrial fibrillation; J44.9 Chronic obstructive pulmonary disease, unspecified; R15.9 Full incontinence of feces; D63.1 Anemia in chronic kidney disease; F03.90 Unspecified dementia, unspecified severity, without behavioral disturbance, psychotic disturbance, mood disturbance, and anxiety; E78.5 Hyperlipidemia, unspecified; H40.9 Unspecified glaucoma; H54.8 Legal blindness, as defined in USA; H26.9 Unspecified cataract; H91.90 Unspecified hearing loss, unspecified ear; E55.9 Vitamin D deficiency, unspecified; F32.9 Major depressive disorder, single episode, unspecified; F41.9 Anxiety disorder, unspecified; R32 Unspecified urinary incontinence; M43.10 Spondylolisthesis, site unspecified; Z79.82 Long term (current) use of aspirin; Z79.84 Long term (current) use of oral hypoglycemic drugs; Z79.899 Other long term (current) drug therapy; Z87.891 Personal history of nicotine dependence; Z87.01 Personal history of pneumonia (recurrent); Z74.01 Bed confinement status; Z91.81 History of falling; Z83.3 Family history of diabetes mellitus; Z82.0 Family history of epilepsy and other diseases of the nervous system
CPT/HCPCS: 36415; 51701; 70450; 71045; 80048; 80053; 81001; 83605; 83735; 84484; 85025; 94640; 94760; 96360; 99285

== ENCOUNTER 2018-10-19 08:40 | Inpatient (IN) | payer MEDICARE, OTHER ==
[2018-10-19] MEDS ORDERED: IPRATROPIUM-ALBUTEROL 3 ML NEB INHALATION STA (08:45)
[2018-10-19] MEDS ORDERED: methylPREDNISolone SOD SUCCI 125 MG/2 ML VIAL IV STA (08:45)
--- NOTE | 2018-10-19 08:50 | ED ---
General Adult HPI - General Stated complaint: ALTERED MENTAL STATUS Time Seen by Provider: 10/19/18 08:45 Source: EMS, RN notes reviewed Mode of arrival: EMS Limitations: altered mental status, physical limitation - History of Present Illness Initial comments: Patient is a 73-year-old male presenting to the emergency department with difficulty in breathing. Patient is a poor historian and provides limited history. Patient reportedly was recently discharged from the hospital. Patient reportedly had difficulty in breathing. Patient was on 5 L of oxygen with reported low pulse ox. Patient amiss to having difficulty in breathing and will say his name otherwise does not provide further history. - Related Data Home Medications Medication Instructions Recorded Confirmed Aspirin 81 mg PO DAILY@0900 08/11/17 10/19/18 Pantoprazole [Protonix] 40 mg PO DAILY@89908/20/17 10/19/18 Budesonide [Pulmicort] 1 mg INHALATION RT-BID@0900,209901/08/18 10/19/18 Ferrous Sulfate [Iron (65 MG 325 mg PO DAILY@0901/08/18 10/19/18 Elemental)] Lactulose 10 gm PO BID@0900,209904/17/18 10/19/18 Ammonium Lactate Lotion 1 applic TOPICAL Q12H PRN 05/10/18 10/19/18 [Lac-Hydrin 12% Lotion] Atorvastatin Calcium [Lipitor] 10 mg PO HS@209905/10/18 10/19/18 Pioglitazone HCl [Actos] 15 mg PO DAILY@0900 05/10/18 10/19/18 Amiodarone [Cordarone] 100 mg PO DAILY@89907/24/18 10/19/18 Citalopram Hydrobromide [CeleXA] 10 mg PO DAILY@89907/24/18 10/19/18 Ipratropium-Albuterol Nebulize 3 ml INHALATION RT-Q6H PRN 07/24/18 10/19/18 [Duoneb 0.5 mg-3 mg/3 ml Soln] Lactose-Reduced Food [Ensure Plus] 120 ml PO TID@0900,1300,209909/26/18 10/19/18 Previous Rx's Medication Instructions Recorded Metoprolol Tartrate [Lopressor] 50 mg PO BID tab 10/18/18 Allergies Allergy/AdvReac Type Severity Reaction Status Date / Time hydrocodone bitartrate AdvReac Nausea Verified 10/19/18 08:42 [From Vicodin] Review of Systems ROS Statement: Those systems with pertinent positive or pertinent negative responses have been documented in the HPI. ROS Other: All systems not noted in ROS Statement are negative. Limitations: ROS unobtainable due to patients medical condition Past Medical History Past Medical History: Atrial Fibrillation, Heart Failure, COPD, CVA/TIA, Diabetes Mellitus, Eye Disorder, GERD/Reflux, Hyperlipidemia, Hypertension, Memory Impairment, Pneumonia, Renal Disease, Syncope Additional Past Medical History / Comment(s): NIDDM type II, legally blind bilaterally secondary to complications of glaucoma; hard of hearing, right-sided deficits from previous CVA, hx of falls, chronic renal failure stage III, bradycardia, hx respiratory failue with hypoxia, DDD, hx of T12 compression fx, spondylothesis, urinary/bowel incontinence, UTI, muscle weakness, bed bound w/ assist to chair, A+O to person/place = baseline, insomnia, anemia, vitamin D deficiency. History of Any Multi-Drug Resistant Organisms: None Reported Past Surgical History: Cholecystectomy Additional Past Surgical History / Comment(s): Laparoscopic cholecystectomy Past Anesthesia/Blood Transfusion Reactions: No Reported Reaction Smoking Status: Former smoker - Past Family History Father Family Medical History: Diabetes Mellitus Mother Family Medical History: Dementia, Diabetes Mellitus Brother(s) Family Medical History: Unable to Obtain General Exam Limitations: altered mental status, physical limitation General appearance: alert, in distress Head exam: Present: atraumatic Eye exam: Present: other (Bilateral eyes opacified.) ENT exam: Present: normal oropharynx Neck exam: Present: normal inspection Respiratory exam: Present: respiratory distress, wheezes, decreased breath sounds Cardiovascular Exam: Present: regular rate, normal rhythm GI/Abdominal exam: Present: soft. Absent: tenderness Extremities exam: Present: pedal edema (Trace bilateral). Absent: calf tenderness Neurological exam: Present: alert Psychiatric exam: Present: normal affect, normal mood Skin exam: Present: normal color Course Vital Signs 10/19/18 10/19/18 10/19/18 08:41 08:50 08:51 Temperature 98.1 F Pulse Rate 56 L 80 Respiratory 18 16 Rate Blood Pressure 135/69 O2 Sat by Pulse 91 L Oximetry 10/19/18 09:05 Temperature Pulse Rate 80 Respiratory Rate Blood Pressure O2 Sat by Pulse Oximetry - Reevaluation(s) Reevaluation #1: 10/19/18 08:50 Patient presents in respiratory distress. Patient will be provided additional DuoNeb and BiPAP will be added until patient is reassessed. 10/19/18 09:16 Patient is significantly improved with BiPAP EKG Findings - EKG Comments: EKG Findings:: Normal sinus rhythm at 81. MA 162. QRS 156. QT 406. QTc 471. Normal axis. Right bundle branch block. No acute ST change. Medical Decision Making - Medical Decision Making Patient again reevaluated. Patient is resting comfortably on BiPAP. Patient updated however patient understanding is probably limited. Dr. Rendon has been paged for admission. - Lab Data Result diagrams: 10/19/18 08:45 10/19/18 08:45 Lab Results 10/19/18 10/19/18 10/19/18 Range/Units 08:45 08:45 08:45 WBC 9.5 (3.8-10.6) k/uL RBC 2.82 L (4.30-5.90) m/uL Hgb 8.0 L (13.0-17.5) gm/dL Hct 26.7 L (39.0-53.0) % MCV 94.5 (80.0-100.0) fL MCH 28.5 (25.0-35.0) pg MCHC 30.2 L (31.0-37.0) g/dL RDW 13.7 (11.5-15.5) % Plt Count 511 H (150-450) k/uL Neutrophils % 85 % Lymphocytes % 7 % Monocytes % 6 % Eosinophils % 1 % Basophils % 0 % Neutrophils # 8.1 H (1.3-7.7) k/uL Lymphocytes # 0.7 L (1.0-4.8) k/uL Monocytes # 0.5 (0-1.0) k/uL Eosinophils # 0.1 (0-0.7) k/uL Basophils # 0.0 (0-0.2) k/uL Hypochromasia Marked PT 11.1 (9.0-12.0) sec INR 1.0 (<1.2) APTT 24.3 (22.0-30.0) sec Sodium 147 H (137-145) mmol/L Potassium 5.6 H (3.5-5.1) mmol/L Chloride 118 H (98-107) mmol/L Carbon Dioxide 17 L (22-30) mmol/L Anion Gap 12 mmol/L BUN 80 H (9-20) mg/dL Creatinine 2.31 H (0.66-1.25) mg/dL Est GFR (CKD-EPI)AfAm 31 (>60 ml/min/1.73 sqM) Est GFR (CKD-EPI)NonAf 27 (>60 ml/min/1.73 sqM) Glucose 146 H (74-99) mg/dL Calcium 9.4 (8.4-10.2) mg/dL Total Bilirubin 0.7 (0.2-1.3) mg/dL AST 19 (17-59) U/L ALT 23 (21-72) U/L Alkaline Phosphatase 85 (38-126) U/L Troponin I (0.000-0.034) ng/mL NT-Pro-B Natriuret Pep pg/mL Total Protein 5.8 L (6.3-8.2) g/dL Albumin 3.1 L (3.5-5.0) g/dL 10/19/18 10/19/18 Range/Units 08:45 08:45 WBC (3.8-10.6) k/uL RBC (4.30-5.90) m/uL Hgb (13.0-17.5) gm/dL Hct (39.0-53.0) % MCV (80.0-100.0) fL MCH (25.0-35.0) pg MCHC (31.0-37.0) g/dL RDW (11.5-15.5) % Plt Count (150-450) k/uL Neutrophils % % Lymphocytes % % Monocytes % % Eosinophils % % Basophils % % Neutrophils # (1.3-7.7) k/uL Lymphocytes # (1.0-4.8) k/uL Monocytes # (0-1.0) k/uL Eosinophils # (0-0.7) k/uL Basophils # (0-0.2) k/uL Hypochromasia PT (9.0-12.0) sec INR (<1.2) APTT (22.0-30.0) sec Sodium (137-145) mmol/L Potassium (3.5-5.1) mmol/L Chloride (98-107) mmol/L Carbon Dioxide (22-30) mmol/L Anion Gap mmol/L BUN (9-20) mg/dL Creatinine (0.66-1.25) mg/dL Est GFR (CKD-EPI)AfAm (>60 ml/min/1.73 sqM) Est GFR (CKD-EPI)NonAf (>60 ml/min/1.73 sqM) Glucose (74-99) mg/dL Calcium (8.4-10.2) mg/dL Total Bilirubin (0.2-1.3) mg/dL AST (17-59) U/L ALT (21-72) U/L Alkaline Phosphatase (38-126) U/L Troponin I 0.040 H* (0.000-0.034) ng/mL NT-Pro-B Natriuret Pep 13209 pg/mL Total Protein (6.3-8.2) g/dL Albumin (3.5-5.0) g/dL - Radiology Data Radiology results: image reviewed (Chest x-ray shows left sided infiltrate and by basilar infiltrate versus atelectasis) Critical Care Time Critical Care Time: Yes Total Critical Care Time: 32 Disposition Clinical Impression: Acute exacerbation of chronic obstructive airways disease, Renal insufficiency, Congestive heart failure, Respiratory failure Disposition: ADMITTED IP TO THIS [facility] Condition: Serious Is patient prescribed a controlled substance at d/c from ED?: No Referrals: Leonides Azul MD [Primary Care Provider] - 1-2 days Decision Time: 09:57
[2018-10-19 09:09] LABS: Basophils % (A) 0 %; Eosinophils # (A) 0.1 k/uL (0-0.7); Eosinophils % (A) 1 %; HCT 26.7 % (39.0-53.0); Hypochromasia Marked; Lymphocytes # (A) 0.7 k/uL (1.0-4.8); Lymphocytes % (A) 7 %; MCH 28.5 pg (25.0-35.0); MCHC 30.2 g/dL (31.0-37.0); MCV 94.5 fL (80.0-100.0); Mean Platelet Volume 7.3; Monocytes # (A) 0.5 k/uL (0-1.0); Monocytes % (A) 6 %; Neutrophils # (A) 8.1 k/uL (1.3-7.7); Neutrophils % (A) 85 %; Platelet Count 511 k/uL (150-450); RBC 2.82 m/uL (4.30-5.90); RDW 13.7 % (11.5-15.5); WBC 9.5 k/uL (3.8-10.6)
[2018-10-19 09:16] LABS: Partial Thromboplastin Time 24.3 sec (22.0-30.0); Prothrombin Time 11.1 sec (9.0-12.0)
[2018-10-19 09:20] LABS: Albumin 3.1 g/dL (3.5-5.0); Calcium 9.4 mg/dL (8.4-10.2); Potassium 5.6 mmol/L (3.5-5.1); Total Bilirubin 0.7 mg/dL (0.2-1.3); Total Protein 5.8 g/dL (6.3-8.2)
--- NOTE | 2018-10-19 09:20 | XR ---
EXAMINATION TYPE: XR chest 1V portable DATE OF EXAM: 10/19/2018 COMPARISON: 10/14/2018 INDICATION: Dyspnea TECHNIQUE: Single frontal view of the chest is obtained. FINDINGS: The heart size is prominent. The pulmonary vasculature is normal. Mild right lower lobe infiltrate is developing. Retrocardiac infiltrate should be considered. There i s silhouetting the left diaphragm. A small left pleural effusion may develop. IMPRESSION: 1. Cardiomegaly. 2. Small left pleural effusion and retrocardiac infiltrate. 3. Developing right lower lobe infiltrate. Correlate for pneumonia or atelectasis.
[2018-10-19] MEDS ORDERED: ASPIRIN 325 MG TAB PO STA (09:58)
[2018-10-19] MEDS ORDERED: IPRATROPIUM-ALBUTEROL 3 ML NEB INHALATION PRN (09:58)
[2018-10-19] MEDS ORDERED: PNEUMONIA PROTOCOL UTILIZED 1 EACH MISC PO PRN (10:02)
[2018-10-19] MEDS ORDERED: LEVOFLOXACIN 750MG-D5W PMX 750 MG in DEXTROSE/WATER 1 150ML.BAG IVPB STA (10:02)
[2018-10-19] MEDS: FUROSEMIDE 10 MG/ML 4 ML VIAL IV SCH ×2 (11:47→17:02)
[2018-10-19] MEDS: NITROGLYCERIN OINT 1 INCH/GM PACKET TOPICAL SCH ×4 (11:48→21:44)
[2018-10-19] MEDS: IPRATROPIUM-ALBUTEROL 3 ML NEB INHALATION SCH ×3 (12:55→18:57)
[2018-10-19] MEDS: methylPREDNISolone SOD SUCCI 125 MG/2 ML VIAL IV SCH ×2 (15:34→17:02)
--- NOTE | 2018-10-19 15:40 | P.CNPUL ---
History of Present Illness Consult date: 10/19/18 Reason for consult: dyspnea History of present illness: 73-year-old male patient came into the emergency department because of worsening shortness of breath. He is a very poor historian. He has multiple medical pounds and comorbidities. He is typically on 5 L of oxygen by nasal cannula and was reported that his pulse ox was low. He was having difficulties with breathing. Among his comorbidities, the patient has had previous history of CVA with some right-sided deficits. He has chronic stage III kidney disease. He is legally blind and has underlying diabetes mellitus type 2. Is known to have COPD and congestion heart failure essentially in the form of diastolic heart failure and has chronic atrial fibrillation. He has hypertension and hyperlipidemia in addition. At the time of his arrival, the patient's BNP level was quite elevated at 15,400. He had a component of non-anion gap metabolic acidosis with a serum bicarbonate of 17. He has also an acute kidney injury with a creatinine of 2.3. Note that the patient was discharged from the hospital yesterday. He was under the care of Dr. adams where he was treated for metabolic encephalopathy that was attributed to his renal failure as the patient a component of acute kidney injury. His presentation was mainly feeling lethargic and weak and not eating enough. His creatinine went up to 2.8. His KAMILA inhibitor was discontinued. He was given IV fluids. He felt better and he was discharged home. At time of discharge, he was asked to take and she'll for dietary supplement in addition to a combination of Lopressor and amiodarone for rate control, Actos for blood sugar, lipids of hyperlipidemia, lactulose for constipation, oral iron tablets supplements, Protonix 40 mg by mouth daily and aspirin 81 mg by mouth daily. He is also on Lipitor hyperlipidemia. Uses DuoNeb nebulized treatments around the clock. His current EKG showing a atrial fibrillation with a right bundle branch block pattern. His chest x-ray is consistent with cardiomegaly and small left-sided pleural effusion and developing right lower lobe infiltrate. The lung was essentially small. The patient was placed on BiPAP. The patient was started on IV Lasix. The patient was admitted to the medical floor under the care of Dr. Rendon. He was also started on IV Solu-Medrol. Lasix is currently at 40 mg every 8 hours. Review of Systems ROS unobtainable: due to mental status Past Medical History Past Medical History: Atrial Fibrillation, Heart Failure, COPD, CVA/TIA, Diabetes Mellitus, Eye Disorder, GERD/Reflux, Hyperlipidemia, Hypertension, Memory Impairment, Pneumonia, Renal Disease, Syncope Additional Past Medical History / Comment(s): NIDDM type II, legally blind b ilaterally secondary to complications of glaucoma; hard of hearing, right-sided deficits from previous CVA, hx of falls, chronic renal failure stage III, bradycardia, hx respiratory failue with hypoxia, DDD, hx of T12 compression fx, spondylothesis, urinary/bowel incontinence, UTI, muscle weakness, bed bound w/ assist to chair, A+O to person/place = baseline, insomnia, anemia, vitamin D deficiency. History of Any Multi-Drug Resistant Organisms: None Reported Past Surgical History: Cholecystectomy Additional Past Surgical History / Comment(s): Laparoscopic cholecystectomy Past Anesthesia/Blood Transfusion Reactions: No Reported Reaction Past Psychological History: Anxiety, Depression Additional Psychological History / Comment(s): Pt. resides at [facility]. He is legally blind bilaterally and [place]. He has R sided deficits from CVA. He needs assist with feeding/ADLs. He is assisted up into wheelchair. He cannot ambulate. He denies any increased depression or thoughts of suicide. Smoking Status: Former smoker Past Alcohol Use History: None Reported Additional Past Alcohol Use History / Comment(s): Started smoking about 1965 and quit in 2012. Smoked a pipe. Past Drug Use History: None Reported - Past Family History Father Family Medical History: Diabetes Mellitus Mother Family Medical History: Dementia, Diabetes Mellitus Brother(s) Family Medical History: Unable to Obtain Medications and Allergies Home Medications Medication Instructions Recorded Confirmed Type Aspirin 81 mg PO DAILY@89908/11/17 10/19/18 History Pantoprazole [Protonix] 40 mg PO DAILY@89908/20/17 10/19/18 History Budesonide [Pulmicort] 1 mg INHALATION RT-BID@899,209901/08/18 10/19/18 History Ferrous Sulfate [Iron (65 MG 325 mg PO DAILY@89901/08/18 10/19/18 History Elemental)] Lactulose 10 gm PO BID@899,209904/17/18 10/19/18 History Ammonium Lactate Lotion 1 applic TOPICAL Q12H PRN 05/10/18 10/19/18 History [Lac-Hydrin 12% Lotion] Atorvastatin Calcium [Lipitor] 10 mg PO HS@2100 05/10/18 10/19/18 History Pioglitazone HCl [Actos] 15 mg PO DAILY@0900 05/10/18 10/19/18 History Amiodarone [Cordarone] 100 mg PO DAILY@0900 07/24/18 10/19/18 History Citalopram Hydrobromide [CeleXA] 10 mg PO DAILY@0900 07/24/18 10/19/18 History Ipratropium-Albuterol Nebulize 3 ml INHALATION RT-Q6H PRN 07/24/18 10/19/18 History [Duoneb 0.5 mg-3 mg/3 ml Soln] Lactose-Reduced Food [Ensure Plus] 120 ml PO TID@0900,1300,2100 09/26/18 10/19/18 History Metoprolol Tartrate [Lopressor] 50 mg PO BID tab 10/18/18 10/19/18 Rx Allergies Allergy/AdvReac Type Severity Reaction Status Date / Time hydrocodone bitartrate AdvReac Nausea Verified 10/19/18 08:42 [From Vicodin] Physical Exam Vitals: Vital Signs Temp Pulse Pulse Resp BP BP Pulse Ox 10/19/18 13:38 98.1 F 80 21 124/59 97 10/19/18 13:00 98.4 F 87 17 130/66 99 10/19/18 12:57 80 10/19/18 12:50 77 10/19/18 11:56 84 21 124/59 97 10/19/18 10:50 78 16 134/61 97 10/19/18 09:05 80 10/19/18 08:51 16 10/19/18 08:50 80 10/19/18 08:41 98.1 F 56 L 18 135/69 91 L Intake and Output 10/19/18 10/19/18 10/19/18 06:59 14:59 22:59 Intake Total 10 Balance 10 Intake: IV 10 Invasive Line 1 10 Other: # Voids 1 Weight 79.016 kg Limitations: Legally blind with bilateral cataract and glaucoma physical limitation, General appearance: 72-year-old white male, a mild degree of respiratory distress. The patient is currently utilizing a BiPAP. Head exam: Atraumatic, normocephalic. Eye exam: Chronic opacification of both eyes noted. No icterus. Neck exam: No neck masses, no stridor. Moist mucous membranes noted. Respiratory exam: Diminished breath sounds at the bases, no crackles or rhonchi or wheezes. No chest wall tenderness. Symmetrical expansion noted. The patient had diffuse expiratory wheezes this is improved Cardiac: Normal S1 and S2 no gallops, no murmur. GI/Abdominal exam: Obese, soft, nontender, no megaly, no rebound, positive bowel sounds. Extremities exam: No clubbing edema or cyanosis. Neurological exam: Awake, however the patient does follow simple commands. He does not verbalize long sentences and he answers yes and no. Psychiatric exam: Flat affect otherwise cannot be assessed. Skin exam: Examination of the skin revealed no evidence of significant rashes, suspicious appearing nevi or other concerning lesions. Results - Laboratory Findings CBC and BMP: 10/19/18 08:45 10/19/18 08:45 PT/INR, D-dimer PT 11.1 sec (9.0-12.0) 10/19/18 08:45 INR 1.0 (<1.2) 10/19/18 08:45 Abnormal lab findings: Abnormal Labs 10/19/18 10/19/18 10/19/18 08:45 08:45 08:45 RBC 2.82 L Hgb 8.0 L Hct 26.7 L MCHC 30.2 L Plt Count 511 H Neutrophils # 8.1 H Lymphocytes # 0.7 L Sodium 147 H Potassium 5.6 H Chloride 118 H Carbon Dioxide 17 L BUN 80 H Creatinine 2.31 H Glucose 146 H Troponin I 0.040 H* Total Protein 5.8 L Albumin 3.1 L - Diagnostic Findings Chest x-ray: image reviewed Assessment and Plan Plan: 1 acute COPD/CHF exacerbation with secondary shortness of breath, consider possibility of a lower lobe pneumonia based on chest x-ray findings. Overall lung volumes are small and a pneumonia cannot be completely excluded. Never theless, the proBNP is quite elevated and there may be a component of CHF in addition to COPD exacerbation. 2 acute on top of chronic stage III kidney disease. Creatinine is up to 2.3 and the patient is an underlying component of non-anion gap at the [facility]. There is also mild hyperchloremic hypernatremia with a sodium level of 147 and the potassium level of 5.6. 3 acute on chronic hypoxic respiratory failure and the patient is currently on BiPAP for respiratory support 4 altered mentation likely secondary to above 5 hypertension 6 hyperlipidemia 7 old T12 compression fracture of the spine along with spondylolisthesis 8 legally blind with bilateral glucoma's/cataracts 9 previous history of CVA with secondary right-sided weakness 10 diabetes mellitus type 2 11 CHF with diastolic heart failure at an ejection fraction of 50-55% with an underlying hypertensive heart disease 12 urinary and bowel incontinence 13 legally blind 14 medical debility needs assistance for transfer 15 chronic anemia plan Transfer the patient to the intensive care unit. Continue BiPAP therapy for respiratory support. Repeat the blood work in the intensive care unit. Obtain a blood gas. Continue bronchodilators and systemic steroids. Continue Levaquin. Continue Lasix for now. Humalog/NovoLog for sliding scale coverage. Heparin subcu for DVT prophylaxis. IV Protonix. Resume oral amiodarone and metoprolol is hemodynamically stable and if the patient is able to swallow. W e'll continue to follow. Prognosis poor. Very much debilitated and overall performance and functional status is extremely poor. He is bedridden. CODE STATUS needs to be established with the public guardian.
[2018-10-19] MEDS ORDERED: PANTOPRAZOLE 40 MG/10 ML VIAL IVP SCH (15:45)
[2018-10-19 16:49] LABS: Glucose,Whole Blood 186 mg/dL (75-99)
[2018-10-19] MEDS: HEPARIN SODIUM,PORCINE 5,000 UNIT/ML 1 ML VIAL SQ SCH (17:00)
[2018-10-19] MEDS: INSULIN ASPART (NovoLOG) 100 UNIT/ML VIAL SQ SCH ×2 (17:00→20:07)
--- NOTE | 2018-10-19 17:10 | P.HPIM ---
History of Present Illness 68-year-old male with multiple medical problems including COPD chronic diastolic dysfunction was sent in here because patient the was lethargic hypoxic, with saturations going down very low and patient is supposed to verify liters of oxygen start wearing this oxygen. Patient was sent in to the hospital patient is found to be in COPD exacerbation may have pulmonary edema as well along with that with chronic diastolic dysfunction patient the creatinine is 2.3 appears to have acute kidney injury baseline creatinine appears to be around 1.9. Patient is requiring BiPAP, is being transferred to ICU at this time. Patient was rece ntly hospitalized for acute metabolic encephalopathy which is believed secondary to dehydration and acute renal failure at that time KAMILA inhibitor was discontinued patient was given IV fluids subsequently discharged to subacute [facility] patient felt better at the time. was evaluated with pulmonology the recommending antibiotics as well as pneumonia cannot be ruled out and patient was started on Zosyn and also Levaquin Levaquin probably can be discontinued patient has small left-sided pleural effusion and right lower lobe infiltrate possibility cannot be ruled out patient was also started on IV Lasix and the systemic steroids. Review of Systems Unable to obtain due to his clinical condition Past Medical History Past Medical History: Atrial Fibrillation, Heart Failure, COPD, CVA/TIA, Diabetes Mellitus, Eye Disorder, GERD/Reflux, Hyperlipidemia, Hypertension, Memory Impairment, Pneumonia, Renal Disease, Syncope Additional Past Medical History / Comment(s): NIDDM type II, legally blind bilaterally secondary to complications of glaucoma; hard of hearing, right-sided deficits from previous CVA, hx of falls, chronic renal failure stage III, bradycardia, hx respiratory failue with hypoxia, DDD, hx of T12 compression fx, spondylothesis, urinary/bowel incontinence, UTI, muscle weakness, bed bound w/ assist to chair, A+O to person/place = baseline, insomnia, anemia, vitamin D deficiency. History of Any Multi-Drug Resistant Organisms: None Reported Past Surgical History: Cholecystectomy Additional Past Surgical History / Comment(s): Laparoscopic cholecystectomy Past Anesthesia/Blood Transfusion Reactions: No Reported Reaction Past Psychological History: Anxiety, Depression Additional Psychological History / Comment(s): Pt. resides at [facility]. He is legally blind bilaterally and HAMILTON. He has R sided deficits from CVA. He needs assist with feeding/ADLs. He is assisted up into wheelchair. He cannot ambulate. He denies any increased depression or thoughts of suicide. Smoking Status: Former smoker Past Alcohol Use History: None Reported Additional Past Alcohol Use History / Comment(s): Started smoking about 1965 and quit in 2012. Smoked a pipe. Past Drug Use History: None Reported - Past Family History Father Family Medical History: Diabetes Mellitus Mother Family Medical History: Dementia, Diabetes Mellitus Brother(s) Family Medical History: Unable to Obtain Medications and Allergies Home Medications Medication Instructions Recorded Confirmed Type Aspirin 81 mg PO DAILY@0900 08/11/17 10/19/18 History Pantoprazole [Protonix] 40 mg PO DAILY@0900 08/20/17 10/19/18 History Budesonide [Pulmicort] 1 mg INHALATION RT-BID@0900,209901/08/18 10/19/18 History Ferrous Sulfate [Iron (65 MG 325 mg PO DAILY@89901/08/18 10/19/18 History Elemental)] Lactulose 10 gm PO BID@0900,209904/17/18 10/19/18 History Ammonium Lactate Lotion 1 applic TOPICAL Q12H PRN 05/10/18 10/19/18 History [Lac-Hydrin 12% Lotion] Atorvastatin Calcium [Lipitor] 10 mg PO HS@209905/10/18 10/19/18 History Pioglitazone HCl [Actos] 15 mg PO DAILY@89905/10/18 10/19/18 History Amiodarone [Cordarone] 100 mg PO DAILY@0900 07/24/18 10/19/18 History Citalopram Hydrobromide [CeleXA] 10 mg PO DAILY@89907/24/18 10/19/18 History Ipratropium-Albuterol Nebulize 3 ml INHALATION RT-Q6H PRN 07/24/18 10/19/18 History [Duoneb 0.5 mg-3 mg/3 ml Soln] Lactose-Reduced Food [Ensure Plus] 120 ml PO TID@0900,1300,209909/26/18 10/19/18 History Metoprolol Tartrate [Lopressor] 50 mg PO BID tab 10/18/18 10/19/18 Rx Allergies Allergy/AdvReac Type Severity Reaction Status Date / Time hydrocodone bitartrate AdvReac Nausea Verified 10/19/18 08:42 [From Vicodin] Physical Exam Vitals: Vital Signs Temp Pulse Pulse Resp BP BP Pulse Ox 10/19/18 16:28 90 10/19/18 16:22 90 10/19/18 13:38 98.1 F 80 21 124/59 97 10/19/18 13:00 98.4 F 87 30 H 130/66 99 10/19/18 12:57 80 10/19/18 12:50 77 10/19/18 11:56 84 21 124/59 97 10/19/18 10:50 78 16 134/61 97 10/19/18 09:05 80 10/19/18 08:51 16 10/19/18 08:50 80 10/19/18 08:41 98.1 F 56 L 18 135/69 91 L Intake and Output 10/19/18 10/19/18 10/19/18 06:59 14:59 22:59 Intake Total 10 Balance 10 Intake: IV 10 Invasive Line 1 10 Other: Voiding Method Incontinent # Voids 1 Weight 79.016 kg PHYSICAL EXAMINATION: GENERAL: The patient is alert and oriented x3, not in any acute distress. Well developed, well nourished. HEENT patient has bilateral cataracts and legally blind No scleral icterus. No conjunctival pallor. Normocephalic, atraumatic. No pharyngeal erythema. No thyromegaly. CARDIOVASCULAR: S1 and S2 present. No murmurs, rubs, or gallops. PULMONARY: Significant expiratory wheezing and exam decreased air entry into bilateral lung montano ABDOMEN: Soft, nontender, nondistended, normoactive bowel sounds. No palpable organomegaly. MUSCULOSKELETAL: No joint swelling or deformity. EXTREMITIES: No cyanosis, clubbing, or pedal edema. NEUROLOGICAL: Gross neurological examination did not reveal any focal deficits. SKIN: No rashes. Results CBC & Chem 7: 10/19/18 08:45 10/19/18 08:45 Labs: Abnormal Lab Results - Last 24 Hours (Table) 10/19/18 10/19/18 10/19/18 Range/Units 08:45 08:45 08:45 RBC 2.82 L (4.30-5.90) m/uL Hgb 8.0 L (13.0-17.5) gm/dL Hct 26.7 L (39.0-53.0) % MCHC 30.2 L (31.0-37.0) g/dL Plt Count 511 H (150-450) k/uL Neutrophils # 8.1 H (1.3-7.7) k/uL Lymphocytes # 0.7 L (1.0-4.8) k/uL Sodium 147 H (137-145) mmol/L Potassium 5.6 H (3.5-5.1) mmol/L Chloride 118 H (98-107) mmol/L Carbon Dioxide 17 L (22-30) mmol/L BUN 80 H (9-20) mg/dL Creatinine 2.31 H (0.66-1.25) mg/dL Glucose 146 H (74-99) mg/dL POC Glucose (mg/dL) (75-99) mg/dL Troponin I 0.040 H* (0.000-0.034) ng/mL Total Protein 5.8 L (6.3-8.2) g/dL Albumin 3.1 L (3.5-5.0) g/dL 10/19/18 10/19/18 Range/Units 14:11 16:22 RBC (4.30-5.90) m/uL Hgb (13.0-17.5) gm/dL Hct (39.0-53.0) % MCHC (31.0-37.0) g/dL Plt Count (150-450) k/uL Neutrophils # (1.3-7.7) k/uL Lymphocytes # (1.0-4.8) k/uL Sodium (137-145) mmol/L Potassium (3.5-5.1) mmol/L Chloride (98-107) mmol/L Carbon Dioxide (22-30) mmol/L BUN (9-20) mg/dL Creatinine (0.66-1.25) mg/dL Glucose (74-99) mg/dL POC Glucose (mg/dL) 186 H (75-99) mg/dL Troponin I 0.038 H* (0.000-0.034) ng/mL Total Protein (6.3-8.2) g/dL Albumin (3.5-5.0) g/dL Assessment and Plan Plan: -Acute hypoxic and hypercapnic on chronic hypercapnic respiratory failure: Most probably 68 COPD exacerbation CHF cannot be ruled out and patient is on IV Lasix along with the systemic steroids. Pulmonology is recommending antibiotics as mentioned above. -Acute on chronic kidney disease stage III acute renal failure probably prerenal azotemia from heart failure exacerbation expected to improve with IV Lasix monitor serum creatinine and electrolytes. -Acute metabolic encephalopathy secondary to above -Metabolic acidosis secondary to uremia patient will be started on oral bicarbonate supplementation -Legally blind with bilateral cataracts and history of glaucoma as well next and have an hypertension next and have an hyperlipidemia -Generalized deconditioning -Chronic respiratory failure basically secondary to COPD and is significantly low lung volumes. -Type 2 diabetes mellitus Patient will need further neurologic GI and DVT prophylaxis
[2018-10-19 17:27] LABS: ABG Base Excess -13.3 mmol/L; ABG HCO3 14 mmol/L (21-25); ABG Oxygen Saturation 96.5 % (94-97); ABG PCO2 35 mmHg (35-45); ABG PH 7.22 (7.35-7.45); ABG PO2 91 mmHg (83-108); ABG TCO2 16 mmol/L (19-24)
[2018-10-19 17:48] LABS: HCT 25.5 % (39.0-53.0); HGB 7.5 gm/dL (13.0-17.5); Hypochromasia Marked; MCH 27.5 pg (25.0-35.0); MCHC 29.5 g/dL (31.0-37.0); MCV 93.2 fL (80.0-100.0); Mean Platelet Volume 7.6; Platelet Count 484 k/uL (150-450); RBC 2.74 m/uL (4.30-5.90); RDW 14.1 % (11.5-15.5); WBC 6.6 k/uL (3.8-10.6)
[2018-10-19 18:00] LABS: INR 1.1 (<1.2); Prothrombin Time 11.3 sec (9.0-12.0)
[2018-10-19 18:09] LABS: Calcium 9.3 mg/dL (8.4-10.2); Magnesium 2.2 mg/dL (1.6-2.3); Phosphorus 5.4 mg/dL (2.5-4.5); Potassium 4.9 mmol/L (3.5-5.1)
[2018-10-19] MEDS ORDERED: SODIUM BICARB 8.4% 50 ML SYR (1 MEQ/ML) IV STA (19:07)
[2018-10-19 19:57] LABS: Glucose,Whole Blood 188 mg/dL (75-99)
[2018-10-19] MEDS: FAMOTIDINE 20 MG/2 ML VIAL IV SCH (20:07)
[2018-10-19] MEDS: PIPERACILLIN-TAZOBACTAM 3.375 GM in SODIUM CHLORIDE 0.9% 100 ML IVPB SCH (20:08)
[2018-10-19] MEDS: DEXTROSE 5% IN WATER 1,000 ML with SODIUM BICARB (1 MEQ/ML) 150 ML IV SCH (20:24)
[2018-10-20 00:14] LABS: Glucose,Whole Blood 185 mg/dL (75-99)
[2018-10-20] MEDS: HEPARIN SODIUM,PORCINE 5,000 UNIT/ML 1 ML VIAL SQ SCH ×4 (00:45→23:39)
[2018-10-20] MEDS: INSULIN ASPART (NovoLOG) 100 UNIT/ML VIAL SQ SCH ×8 (00:46→23:48)
[2018-10-20] MEDS: methylPREDNISolone SOD SUCCI 125 MG/2 ML VIAL IV SCH ×2 (00:46→06:20)
[2018-10-20] MEDS: FUROSEMIDE 10 MG/ML 4 ML VIAL IV SCH ×3 (02:13→18:26)
[2018-10-20 04:03] LABS: Glucose,Whole Blood 222 mg/dL (75-99)
[2018-10-20 05:20] LABS: Basophils % (A) 0 %; Eosinophils % (A) 1 %; HCT 24.8 % (39.0-53.0); HGB 7.6 gm/dL (13.0-17.5); Hypochromasia Moderate; Lymphocytes # (A) 0.4 k/uL (1.0-4.8); Lymphocytes % (A) 7 %; MCH 28.2 pg (25.0-35.0); MCHC 30.6 g/dL (31.0-37.0); MCV 92.2 fL (80.0-100.0); Mean Platelet Volume 7.2; Monocytes # (A) 0.4 k/uL (0-1.0); Monocytes % (A) 7 %; Neutrophils # (A) 4.8 k/uL (1.3-7.7); Neutrophils % (A) 86 %; Platelet Count 447 k/uL (150-450); RBC 2.69 m/uL (4.30-5.90); RDW 13.7 % (11.5-15.5); WBC 5.6 k/uL (3.8-10.6)
[2018-10-20 05:30] LABS: Calcium 9.3 mg/dL (8.4-10.2); Magnesium 2.1 mg/dL (1.6-2.3); Phosphorus 4.4 mg/dL (2.5-4.5); Potassium 4.1 mmol/L (3.5-5.1)
[2018-10-20] MEDS: IPRATROPIUM-ALBUTEROL 3 ML NEB INHALATION SCH ×4 (08:06→20:47)
--- NOTE | 2018-10-20 08:26 | XR ---
EXAMINATION TYPE: XR chest 1V DATE OF EXAM: 10/20/2018 COMPARISON: Prior chest x-ray 10/19/2018 HISTORY: Pneumonia TECHNIQUE: Single frontal view of the chest is obtained. FINDINGS: Perihilar vascular indistinctness is present. The heart is enlarged. Bibasilar increased d ensities noted. There are overlying artifacts. No pneumothorax. Patient is rotated. Aorta is dense. IMPRESSION: Correlate for congestive heart failure, volume overload. There may be basilar effusions and associated atelectasis or edema, correlate to exclude pneumonia. Follow-up recommended.
[2018-10-20] MEDS: FAMOTIDINE 20 MG/2 ML VIAL IV SCH ×2 (08:34→21:14)
[2018-10-20] MEDS: PIPERACILLIN-TAZOBACTAM 3.375 GM in SODIUM CHLORIDE 0.9% 100 ML IVPB SCH ×2 (08:34→21:14)
[2018-10-20] MEDS: NITROGLYCERIN OINT 1 INCH/GM PACKET TOPICAL SCH ×4 (08:39→23:39)
[2018-10-20 08:40] LABS: Glucose,Whole Blood 202 mg/dL (75-99)
--- NOTE | 2018-10-20 09:21 | P.CRDCN ---
History of Present Illness Consult date: 10/20/18 Chief complaint: Shortness of breath History of present illness: This is a 73-year-old gentleman who is hard hearing as well as somewhat poor his taya was brought from an extended care facility to the hospital because of shortness of breath. The patient does have a past medical history consistent off congestive heart failure secondary to diastolic dysfunction, the last echocardiogram from 2018 revealed normal LV function was evidence of mild aortic stenosis and mild aortic insufficiency, history of chronic obstructive pulmonary disease, diabetes, hypertension, dyslipidemia, chronic kidney disease, and also a diagnosis of paroxysmal atrial fibrillation based on reviewing his medical records. The patient was brought from an extended care facility to the hospital because of worsening shortness of breath as well as worsening bilateral lower extremities edema. No indication of any chest pain or chest discomfort. The patient normally is on oxygen at the extended care facility but it was noticed that he was requiring higher oxygen level and he was more short of breath. When he was brought to the hospital, the chest x-ray showed findings consistent with CHF. The BNP came in to be elevated at 15,000. The creatinine was 2.3. O verall the patient is lethargic and poor historian. Subsequently he was admitted to the ICU on he was started on Lasix IV. On examination this morning he still have severe bilateral lower extended is pitting edema and diminished breathing sounds bilaterally. The patient. The diagnosis of paroxysmal atrial fibrillation but there is no indication after I reviewed his home medication that he is on any oral anticoagulation. When he was brought to the ICU yesterday initially he was placed on BiPAP. 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 History of Any Multi-Drug Resistant Organisms: None Reported Past Surgical History: Cholecystectomy Additional Past Surgical History / Comment(s): Laparoscopic cholecystectomy Past Anesthesia/Blood Transfusion Reactions: No Reported Reaction Past Psychological History: Anxiety, Depression Additional Psychological History / Comment(s): Pt. resides at [facility]. He is legally blind bilaterally and AMBLER. He has R sided deficits from CVA. He needs assist with feeding/ADLs. He is assisted up into wheelchair. He cannot ambulate. He denies any increased depression or thoughts of suicide. Smoking Status: Former smoker Past Alcohol Use History: None Reported Additional Past Alcohol Use History / Comment(s): Started smoking about 1965 and quit in 2012. Smoked a pipe. Past Drug Use History: None Reported - Past Family History Father Family Medical History: Diabetes Mellitus Mother Family Medical History: Dementia, Diabetes Mellitus Brother(s) Family Medical History: Unable to Obtain Medications and Allergies Home Medications Medication Instructions Recorded Confirmed Type Aspirin 81 mg PO DAILY@0900 08/11/17 10/19/18 History Pantoprazole [Protonix] 40 mg PO DAILY@89908/20/17 10/19/18 History Budesonide [Pulmicort] 1 mg INHALATION RT-BID@899,209901/08/18 10/19/18 History Ferrous Sulfate [Iron (65 MG 325 mg PO DAILY@89901/08/18 10/19/18 History Elemental)] Lactulose 10 gm PO BID@0900,209904/17/18 10/19/18 History Ammonium Lactate Lotion 1 applic TOPICAL Q12H PRN 05/10/18 10/19/18 History [Lac-Hydrin 12% Lotion] Atorvastatin Calcium [Lipitor] 10 mg PO HS@209905/10/18 10/19/18 History Pioglitazone HCl [Actos] 15 mg PO DAILY@89905/10/18 10/19/18 History Amiodarone [Cordarone] 100 mg PO DAILY@89907/24/18 10/19/18 History Citalopram Hydrobromide [CeleXA] 10 mg PO DAILY@89907/24/18 10/19/18 History Ipratropium-Albuterol Nebulize 3 ml INHALATION RT-Q6H PRN 07/24/18 10/19/18 History [Duoneb 0.5 mg-3 mg/3 ml Soln] Lactose-Reduced Food [Ensure Plus] 120 ml PO TID@0900,1300,2100 09/26/18 10/19/18 History Metoprolol Tartrate [Lopressor] 50 mg PO BID tab 10/18/18 10/19/18 Rx Allergies Allergy/AdvReac Type Severity Reaction Status Date / Time hydrocodone bitartrate AdvReac Nausea Verified 10/19/18 08:42 [From Vicodin] Physical Exam Vitals: Vital Signs Temp Pulse Pulse Resp BP BP Pulse Ox 10/20/18 08:21 83 10/20/18 08:08 77 10/20/18 07:00 80 19 141/61 97 10/20/18 06:00 79 20 154/64 96 10/20/18 05:00 81 21 151/69 96 10/20/18 04:00 98.5 F 86 19 112/53 96 10/20/18 03:00 82 19 94/52 97 10/20/18 02:00 82 20 127/61 96 10/20/18 01:00 86 23 125/61 95 10/20/18 00:20 96 10/20/18 00:00 97.8 F 84 87 24 137/64 98 10/19/18 23:00 81 20 111/49 98 10/19/18 22:00 84 20 141/75 99 10/19/18 21:00 89 20 132/62 98 10/19/18 20:00 98.1 F 84 19 117/54 97 10/19/18 19:05 90 10/19/18 19:00 81 20 128/92 99 10/19/18 18:57 82 10/19/18 18:00 88 27 H 131/61 98 10/19/18 17:00 98.9 F 85 24 146/78 97 10/19/18 16:35 20 10/19/18 16:28 90 10/19/18 16:22 90 10/19/18 16:18 93 19 10/19/18 13:38 98.1 F 80 21 124/59 97 10/19/18 13:00 98.4 F 87 30 H 130/66 99 10/19/18 12:57 80 10/19/18 12:50 77 10/19/18 11:56 84 21 124/59 97 10/19/18 10:50 78 16 134/61 97 Intake and Output 10/19/18 10/20/18 10/20/18 22:59 06:59 14:59 Intake Total 340 480 60 Output Total 1145 1075 125 Balance -995 -595 -65 Intake: IV 340 480 60 Dextrose 5% in Water 1, 180 480 60 000 ml @ 60 mls/hr IV . [id number] EKATERINA with Sodium Bicarb (1 Meq/ml) 150 ml Rx#:[id number] Piperacillin-Tazobactam 3 100 .375 gm In Sodium Chloride 0.9% 100 ml @ 25 mls/hr IVPB Q12HR EKATERINA Rx #:[id number] ns 60 Output: Urine 1145 1075 125 Other: Voiding Method Indwelling Catheter Indwelling Catheter Weight 90.8 kg - Constitutional General appearance: no acute distress - Respiratory Respiratory: bilateral: diminished - Cardiovascular Rhythm: regular Heart sounds: normal: S1, S2 Results 10/20/18 04:44 10/20/18 04:44 Cardiac Enzymes 10/19/18 10/19/18 10/19/18 Range/Units 08:45 08:45 14:11 AST 19 (17-59) U/L Troponin I 0.040 H* 0.038 H* (0.000-0.034) ng/mL 10/19/18 Range/Units 20:05 AST (17-59) U/L Troponin I 0.038 H* (0.000-0.034) ng/mL Coagulation 10/19/18 10/19/18 Range/Units 08:45 17:35 PT 11.1 11.3 (9.0-12.0) sec APTT 24.3 (22.0-30.0) sec CBC 10/19/18 10/20/18 Range/Units 17:35 04:44 WBC 6.6 5.6 (3.8-10.6) k/uL RBC 2.74 L 2.69 L (4.30-5.90) m/uL Hgb 7.5 L 7.6 L (13.0-17.5) gm/dL Hct 25.5 L 24.8 L (39.0-53.0) % Plt Count 484 H 447 (150-450) k/uL Comprehensive Metabolic Panel 10/19/18 10/19/18 10/20/18 Range/Units 08:45 17:35 04:44 Sodium 147 H 145 144 (137-145) mmol/L Potassium 5.6 H 4.9 4.1 (3.5-5.1) mmol/L Chloride 118 H 117 H 116 H (98-107) mmol/L Carbon Dioxide 17 L 16 L 21 L (22-30) mmol/L BUN 80 H 79 H 82 H (9-20) mg/dL Creatinine 2.31 H 2.37 H 2.34 H (0.66-1.25) mg/dL Glucose 146 H 199 H 196 H (74-99) mg/dL Calcium 9.4 9.3 9.3 (8.4-10.2) mg/dL AST 19 (17-59) U/L ALT 23 (21-72) U/L Alkaline Phosphatase 85 (38-126) U/L Total Protein 5.8 L (6.3-8.2) g/dL Albumin 3.1 L (3.5-5.0) g/dL Current Medications Generic Name Dose Route Start Last Admin Trade Name Freq PRN Reason Stop Dose Admin Albuterol/Ipratropium 3 ml 10/19/18 12:00 10/20/18 08:06 Duoneb 0.5 Mg-3 Mg/3 Ml Soln INHALATION 3 ml RT-QID EKATERINA Administration Albuterol/Ipratropium 3 ml 10/19/18 09:58 Duoneb 0.5 Mg-3 Mg/3 Ml Soln INHALATION RT-Q4H PRN Shortness Of Breath Or Wheezing Aspirin 300 mg 10/20/18 09:00 Aspirin RECTAL DAILY EKATERINA Famotidine 20 mg 10/19/18 21:00 10/20/18 08:34 Pepcid IV 20 mg Q12HR EKATERINA Administration Furosemide 40 mg 10/19/18 10:00 10/20/18 02:13 Lasix IV 40 mg Q8H EKATERINA Administration Heparin Sodium (Porcine) 5,000 unit 10/19/18 16:00 10/20/18 08:34 Heparin SQ 5,000 unit Q8HR EKATERINA Administration Piperacillin Sod/Tazobactam 100 mls @ 25 mls/hr 10/19/18 21:00 10/20/18 08:34 Sod 3.375 gm/ Sodium Chloride IVPB 25 mls/hr Q12HR EKATERINA Administration Sodium Bicarbonate 150 ml/ 1,150 mls @ 60 mls/hr 10/19/18 19:15 10/19/18 20:24 Dextrose/Water IV 60 mls/hr .[id number] EKATERINA Administration Insulin Aspart 0 unit 10/20/18 04:15 10/20/18 08:39 Novolog SQ 6 unit Q4HR EKATERINA Administration Protocol Levofloxacin 750 mg 10/20/18 12:00 Levaquin PO 10/25/18 12:01 Q48H EKATERINA Methylprednisolone Sodium Succinate 60 mg 10/19/18 12:00 10/20/18 06:20 Solu-Medrol IV 60 mg Q6HR EKATERINA Administration Miscellaneous Information 1 each 10/19/18 10:02 Pneumonia Protocol Utilized PO ONCE PRN Per Protocol Nitroglycerin 1 inch 10/19/18 10:00 10/20/18 08:39 Nitro-Bid Oint TOPICAL 1 inch QID EKATERINA Administration Sodium Chloride 10 ml 10/19/18 21:00 10/20/18 08:39 Saline Flush IV 10 ml BID EKATERINA Administration Intake and Output 10/19/18 10/20/18 10/20/18 22:59 06:59 14:59 Intake Total 340 480 60 Output Total 1145 1075 125 Balance -805 -595 -65 Intake: IV 340 480 60 Dextrose 5% in Water 1, 180 480 60 000 ml @ 60 mls/hr IV . [id number] EKATERINA with Sodium Bicarb (1 Meq/ml) 150 ml Rx#:[id number] Piperacillin-Tazobactam 3 100 .375 gm In Sodium Chloride 0.9% 100 ml @ 25 mls/hr IVPB Q12HR EKATERINA Rx #:[id number] ns 60 Output: Urine 1145 1075 125 Other: Voiding Method Indwelling Catheter Indwelling Catheter Weight 90.8 kg 10/20/18 04:44 10/20/18 04:44 Assessment and Plan Assessment: Assessment #1 acute hypoxic respiratory failure #2 COPD exacerbation #3 CHF exacerbation secondary to diastolic dysfunction #4 change in mental status #5 paroxysmal atrial fibrillation #6 valvular heart disease Plan #1 continue the current dose of Lasix IV and continue monitor the kidney function and electrolytes #2 repeat the echocardiogram to assess the LV function. Last echo was more than 6 months ago #3 pulmonary/critical care on the case as well #4 follow-up with the patient Thank you for allowing us participate in his care
[2018-10-20 09:37] LABS: ABG Base Excess -1.8 mmol/L; ABG HCO3 23 mmol/L (21-25); ABG Oxygen Saturation 95.3 % (94-97); ABG PCO2 37 mmHg (35-45); ABG PO2 73 mmHg (83-108); ABG TCO2 24 mmol/L (19-24)
[2018-10-20] MEDS ORDERED: ASPIRIN 325 MG TAB PO SCH (09:59)
[2018-10-20] MEDS ORDERED: LEVOFLOXACIN 750 MG TAB PO SCH ×2 (10:02→12:00)
[2018-10-20] MEDS: ASPIRIN 300 MG SUPP RECTAL SCH (10:06)
--- NOTE | 2018-10-20 10:39 | P.NPCON ---
History of Present Illness - Reason for Consult Consult date: 10/20/18 acute renal failure - Chief Complaint Changes in mental status, COPD and CHF - History of Present Illness This is 73-year-old male seen in consultation because of acute kidney injury, chronic kidney disease and admitted with shortness of breath and confusion. He is unable to give any history currently as he is confused and is on a BiPAP. He was recently admitted on 10/13/2018 discharge 10/18/2018, the time his diagnosis was acute renal failure from decreased intake. Supposedly he was discharged to a extended care facility where he was not using his oxygen as was recommended. He became confused and was brought in here. His home medications included aspirin protonic Pulmicort iron tablet lactulose Lipitor Actos HI are grown Celexa and inhalers. His workup has shown creatinine is 2.31 on admission, sodium 147, 5.6, 118, 17 and anion gap is 12. BUN is 80. Blood gas 7.22, 35 and 91. White count 9500 hemoglobin 8 and platelet count 5 11,000. Normal AST and AST. Troponin 0.04 and 0.038 Ammonia not available. Drug screen not available, blood culture is not available Is known with chronic kidney disease, He is also known with distal heart failure ejection fraction 50% diastolic dysfunction, chronic right-sided weakness from prior stroke chronic legal blindness, COPD ex-smoker diabetes type 2 urinary and bowel incontinence. 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 History of Any Multi-Drug Resistant Organisms: None Reported Past Surgical History: Cholecystectomy Additional Past Surgical History / Comment(s): Laparoscopic cholecystectomy Past Anesthesia/Blood Transfusion Reactions: No Reported Reaction Past Psychological History: Anxiety, Depression Additional Psychological History / Comment(s): Pt. resides at [facility]. He is legally blind bilaterally and [place]. He has R sided deficits from CVA. He needs assist with feeding/ADLs. He is assisted up into wheelchair. He cannot ambula te. He denies any increased depression or thoughts of suicide. Smoking Status: Former smoker Past Alcohol Use History: None Reported Additional Past Alcohol Use History / Comment(s): Started smoking about 1965 and quit in 2012. Smoked a pipe. Past Drug Use History: None Reported - Past Family History Father Family Medical History: Diabetes Mellitus Mother Family Medical History: Dementia, Diabetes Mellitus Brother(s) Family Medical History: Unable to Obtain Medications and Allergies Home Medications Medication Instructions Recorded Confirmed Type Aspirin 81 mg PO DAILY@0900 08/11/17 10/19/18 History Pantoprazole [Protonix] 40 mg PO DAILY@0900 08/20/17 10/19/18 History Budesonide [Pulmicort] 1 mg INHALATION RT-BID@0900,209901/08/18 10/19/18 History Ferrous Sulfate [Iron (65 MG 325 mg PO DAILY@0900 01/08/18 10/19/18 History Elemental)] Lactulose 10 gm PO BID@0900,2100 04/17/18 10/19/18 History Ammonium Lactate Lotion 1 applic TOPICAL Q12H PRN 05/10/18 10/19/18 History [Lac-Hydrin 12% Lotion] Atorvastatin Calcium [Lipitor] 10 mg PO HS@209905/10/18 10/19/18 History Pioglitazone HCl [Actos] 15 mg PO DAILY@0900 05/10/18 10/19/18 History Amiodarone [Cordarone] 100 mg PO DAILY@0900 07/24/18 10/19/18 History Citalopram Hydrobromide [CeleXA] 10 mg PO DAILY@0900 07/24/18 10/19/18 History Ipratropium-Albuterol Nebulize 3 ml INHALATION RT-Q6H PRN 07/24/18 10/19/18 History [Duoneb 0.5 mg-3 mg/3 ml Soln] Lactose-Reduced Food [Ensure Plus] 120 ml PO TID@0900,1300,2100 09/26/18 History Metoprolol Tartrate [Lopressor] 50 mg PO BID tab 10/18/18 10/19/18 Rx Allergies Allergy/AdvReac Type Severity Reaction Status Date / Time hydrocodone bitartrate AdvReac Nausea Verified 10/19/18 08:42 [From Vicodin] Physical Exam Vitals: Vital Signs Temp Pulse Pulse Resp BP BP Pulse Ox 10/20/18 10:00 86 20 152/66 96 10/20/18 09:00 89 23 161/68 96 10/20/18 08:21 83 10/20/18 08:08 77 10/20/18 08:00 81 19 143/67 97 10/20/18 07:00 80 19 141/61 97 10/20/18 06:00 79 20 154/64 96 10/20/18 05:00 81 21 151/69 96 10/20/18 04:00 98.5 F 86 19 112/53 96 10/20/18 03:00 82 19 94/52 97 10/20/18 02:00 82 20 127/61 96 10/20/18 01:00 86 23 125/61 95 10/20/18 00:20 96 10/20/18 00:00 97.8 F 84 87 24 137/64 98 10/19/18 23:00 81 20 111/49 98 10/19/18 22:00 84 20 141/75 99 10/19/18 21:00 89 20 132/62 98 10/19/18 20:00 98.1 F 84 19 117/54 97 10/19/18 19:05 90 10/19/18 19:00 81 20 128/92 99 10/19/18 18:57 82 10/19/18 18:00 88 27 H 131/61 98 10/19/18 17:00 98.9 F 85 24 146/78 97 10/19/18 16:35 20 10/19/18 16:28 90 10/19/18 16:22 90 10/19/18 16:18 93 19 10/19/18 13:38 98.1 F 80 21 124/59 97 10/19/18 13:00 98.4 F 87 30 H 130/66 99 10/19/18 12:57 80 10/19/18 12:50 77 10/19/18 11:56 84 21 124/59 97 10/19/18 10:50 78 16 134/61 97 Intake and Output 10/19/18 10/20/18 10/20/18 22:59 06:59 14:59 Intake Total 340 480 340 Output Total 1145 1075 575 Balance -512 -238 -235 Intake: IV 340 480 340 Dextrose 5% in Water 1, 180 480 240 000 ml @ 60 mls/hr IV . [id number] EKATERINA with Sodium Bicarb (1 Meq/ml) 150 ml Rx#:[id number] Piperacillin-Tazobactam 3 100 100 .375 gm In Sodium Chloride 0.9% 100 ml @ 25 mls/hr IVPB Q12HR EKATERINA Rx #:[id number] ns 60 Output: Urine 1145 1075 575 Other: Voiding Method Indwelling Catheter Indwelling Catheter Indwelling Catheter Weight 90.8 kg Examination he is on BiPAP, lethargic opens eyes and mumbles. HEENT exam no JVP neck is supple no facial asymmetry pupils are difficult to gauge because of corneal opacification. Lungs are clear to auscultation fairly good air entry bilaterally Heart sounds are unremarkable no murmur rub gallop Abdomen soft nontender no organomegaly ascites masses Extremity exam was mild edema. Neurologically arousable lethargic. Moves all his extremities Results - Lab Results Most recent lab results ABG pH 7.40 (7.35-7.45) 10/20/18 09:29 ABG pCO2 37 mmHg (35-45) 10/20/18 09:29 ABG pO2 73 mmHg (83-108) L 10/20/18 09:29 ABG HCO3 23 mmol/L (21-25) 10/20/18 09:29 ABG O2 Saturation 95.3 % (94-97) 10/20/18 09:29 Calcium 9.3 mg/dL (8.4-10.2) 10/20/18 04:44 Phosphorus 4.4 mg/dL (2.5-4.5) 10/20/18 04:44 Magnesium 2.1 mg/dL (1.6-2.3) 10/20/18 04:44 10/20/18 04:44 10/20/18 04:44 Assessment and Plan Assessment: Impression 1. Acute kidney injury secondary to prerenal, possibly from cardiorenal syndrome. He has diastolic heart failure. Creatinine went up to 2.34. His baseline is 1.47 dated 09/17/2018 month ago. 2. Chronic kidney disease stage III with GFR 46 mL per minute, Baseline creatinine 1.47 dated 09/17/2018 with trace proteinuria. Likely nephrosclerosis with possible diabetic nephropath 3. Admitted with confusion, no computed tomography scan on this admission but o had a computed tomography scan on previous admission 5 days ago on 10/14/2018 which was rather unremarkable. 4. COPD with exacerbation. 5. Congestive heart failure currently on Lasix 40 every 8 with good diuresis 6. Mild degree of non-gap acidosis secondary to chronic kidney disease. Bicarb is 17, and anion gap is 12. 7. Hyperkalemia secondary acute kidney injury and RTA. 8. [address] scans dated 01/07/2017 and more recently on 02/03/2018 size reported at 2.3 cm previously and 1.2 cm on the more recent computed tomography scan. This needs to be followed up as an outpatient. 9. Ascending aortic aneurysm 3.7 cm. Recommendation 1. Agree with continuation of aggressive diuresis and see how he responds. 2. Would discontinue the IV bicarb and give him by mouth bicarb 650 4 times a day. 3. Suggest check ammonia and drug screen. 4. Will monitor renal function, blood pressure intake and output.
[2018-10-20 12:17] LABS: Glucose,Whole Blood 131 mg/dL (75-99)
--- NOTE | 2018-10-20 12:23 | P.PN ---
Subjective Progress Note Date: 10/20/18 73-year-old male patient came into the emergency department because of worsening shortness of breath. He is a very poor historian. He has multiple medical pounds and comorbidities. He is typically on 5 L of oxygen by nasal cannula and was reported that his pulse ox was low. He was having difficulties with breathing. Among his comorbidities, the patient has had previous history of CVA with some right-sided deficits. He has chronic stage III kidney disease. He is legally blind and has underlying diabetes mellitus type 2. Is known to have COPD and congestion heart failure essentially in the form of diastolic heart failure and has chronic atrial fibrillation. He has hypertension and hyperlip idemia in addition. At the time of his arrival, the patient's BNP level was quite elevated at 15,400. He had a component of non-anion gap metabolic acidosis with a serum bicarbonate of 17. He has also an acute kidney injury with a creatinine of 2.3. Note that the patient was discharged from the hospital yesterday. He was under the care of Dr. adams where he was treated for metabolic encephalopathy that was attributed to his renal failure as the patient a component of acute kidney injury. His presentation was mainly feeling lethargic and weak and not eating enough. His creatinine went up to 2.8. His KAMILA inhibitor was discontinued. He was given IV fluids. He felt better and he was discharged home. At time of discharge, he was asked to take and she'll for dietary supplement in addition to a combination of Lopressor and amiodarone for rate control, Actos for blood sugar, lipids of hyperlipidemia, lactulose for constipation, oral iron tablets supplements, Protonix 40 mg by m outh daily and aspirin 81 mg by mouth daily. He is also on Lipitor hyperlipidemia. Uses DuoNeb nebulized treatments around the clock. His current EKG showing a atrial fibrillation with a right bundle branch block pattern. His chest x-ray is consistent with cardiomegaly and small left-sided pleural effusion and developing right lower lobe infiltrate. The lung was essentially small. The patient was placed on BiPAP. The patient was started on IV Lasix. The patient was admitted to the medical floor under the care of Dr. Rendon. He was also started on IV Solu-Medrol. Lasix is currently at 40 mg every 8 hours. On today's evaluation of 10/20/2018 I'm seeing this patient for a follow-up. He is lethargic yet arousable. He remains on BiPAP throughout the night yesterday and this morning he remains on BiPAP at a pressure of 12/5 cm of water with an FiO2 of 50%. Chest x-ray still showing CHF and noted the patient's proBNP level was elevated at a time of admission. Echocardiogram was done and the patient was found to have a large pericardial effusion for that reason a cardiac cons ultation was ordered and the patient will be seen again by Dr. Costello. Meanwhile, the patient was started on a bicarb drip infusion yesterday regarding his underlying metabolic acidosis. Bicarb infusion is running at a rate of 6 an hour. The patient's BNP today is at 80 with a creatinine of 2.3. His serum bicarb level is up to 21. He is also being diuresis with IV Lasix. Is receiving Lasix at a dose of 40 mg every 8 hours. He is producing good amount of urine output. No significant bronchospasm and wheezing. I think the predominant failure was related to CHF and the presence of pericardial effusion could've contributed to his condition. No signs of any temporal for now. The patient was also was seen by nephrology Objective - Vital Signs Vital signs: Vital Signs Temp 98.5 F 10/20/18 04:00 Pulse 87 10/20/18 11:00 Resp 19 10/20/18 11:00 BP 141/63 10/20/18 11:00 Pulse Ox 96 10/20/18 11:00 Intake & Output 10/19/18 10/20/18 10/20/18 18:59 06:59 18:59 Intake Total 50 780 400 Output Total 600 1620 775 Balance -550 -840 -375 Weight 79.016 kg 90.8 kg Intake: IV 50 780 400 Dextrose 5% in Water 1, 660 300 000 ml @ 60 mls/hr IV . [id number] EKATERINA with Sodium Bicarb (1 Meq/ml) 150 ml Rx#:[id number] Invasive Line 1 10 Piperacillin-Tazobactam 3 100 100 .375 gm In Sodium Chloride 0.9% 100 ml @ 25 mls/hr IVPB Q12HR EKATERINA Rx #:[id number] ns 40 20 Output: Urine 600 1620 775 Other: Voiding Method Indwelling Catheter Indwelling Catheter Indwelling Catheter # Voids 1 - Exam Limitations: Legally blind with bilateral cataract and glaucoma physical limitation, General appearance: 72-year-old white male, a mild degree of respiratory distress. The patient is currently utilizing a BiPAP. Head exam: Atraumatic, normocephalic. Eye exam: Chronic opacification of both eyes noted. No icterus. Neck exam: No neck masses, no stridor. Moist mucous membranes noted. Respiratory exam: Diminished breath sounds at the bases, no crackles or rhonchi or wheezes. No chest wall tenderness. Symmetrical expansion noted. The patient had diffuse expiratory wheezes this is improved Cardiac: Normal S1 and S2 no gallops, no murmur. GI/Abdominal exam: Obese, soft, nontender, no megaly, no rebound, positive bowel sounds. Extremities exam: No clubbing edema or cyanosis. Neurological exam: Awake, however the patient does follow simple commands. He does not verbalize long sentences and he answers yes and no. Psychiatric exam: Flat affect otherwise cannot be assessed. Skin exam: Examination of the skin revealed no evidence of significant rashes, suspicious appearing nevi or other concerning lesions. - Labs CBC & Chem 7: 10/20/18 04:44 10/20/18 04:44 Labs: Abnormal Lab Results - Last 24 Hours (Table) 10/19/18 10/19/18 10/19/18 Range/Units 14:11 16:22 17:24 RBC (4.30-5.90) m/uL Hgb (13.0-17.5) gm/dL Hct (39.0-53.0) % MCHC (31.0-37.0) g/dL Plt Count (150-450) k/uL Lymphocytes # (1.0-4.8) k/uL ABG pH 7.22 L (7.35-7.45) ABG pO2 (83-108) mmHg ABG HCO3 14 L (21-25) mmol/L ABG Total CO2 16 L (19-24) mmol/L Chloride (98-107) mmol/L Carbon Dioxide (22-30) mmol/L BUN (9-20) mg/dL Creatinine (0.66-1.25) mg/dL Glucose (74-99) mg/dL POC Glucose (mg/dL) 186 H (75-99) mg/dL Phosphorus (2.5-4.5) mg/dL Troponin I 0.038 H* (0.000-0.034) ng/mL 10/19/18 10/19/18 10/19/18 Range/Units 17:35 17:35 19:54 RBC 2.74 L (4.30-5.90) m/uL Hgb 7.5 L (13.0-17.5) gm/dL Hct 25.5 L (39.0-53.0) % MCHC 29.5 L (31.0-37.0) g/dL Plt Count 484 H (150-450) k/uL Lymphocytes # (1.0-4.8) k/uL ABG pH (7.35-7.45) ABG pO2 (83-108) mmHg ABG HCO3 (21-25) mmol/L ABG Total CO2 (19-24) mmol/L Chloride 117 H (98-107) mmol/L Carbon Dioxide 16 L (22-30) mmol/L BUN 79 H (9-20) mg/dL Creatinine 2.37 H (0.66-1.25) mg/dL Glucose 199 H (74-99) mg/dL POC Glucose (mg/dL) 188 H (75-99) mg/dL Phosphorus 5.4 H (2.5-4.5) mg/dL Troponin I (0.000-0.034) ng/mL 10/19/18 10/20/18 10/20/18 Range/Units 20:05 00:00 04:00 RBC (4.30-5.90) m/uL Hgb (13.0-17.5) gm/dL Hct (39.0-53.0) % MCHC (31.0-37.0) g/dL Plt Count (150-450) k/uL Lymphocytes # (1.0-4.8) k/uL ABG pH (7.35-7.45) ABG pO2 (83-108) mmHg ABG HCO3 (21-25) mmol/L ABG Total CO2 (19-24) mmol/L Chloride (98-107) mmol/L Carbon Dioxide (22-30) mmol/L BUN (9-20) mg/dL Creatinine (0.66-1.25) mg/dL Glucose (74-99) mg/dL POC Glucose (mg/dL) 185 H 222 H (75-99) mg/dL Phosphorus (2.5-4.5) mg/dL Troponin I 0.038 H* (0.000-0.034) ng/mL 10/20/18 10/20/18 10/20/18 Range/Units 04:44 04:44 08:38 RBC 2.69 L (4.30-5.90) m/uL Hgb 7.6 L (13.0-17.5) gm/dL Hct 24.8 L (39.0-53.0) % MCHC 30.6 L (31.0-37.0) g/dL Plt Count (150-450) k/uL Lymphocytes # 0.4 L (1.0-4.8) k/uL ABG pH (7.35-7.45) ABG pO2 (83-108) mmHg ABG HCO3 (21-25) mmol/L ABG Total CO2 (19-24) mmol/L Chloride 116 H (98-107) mmol/L Carbon Dioxide 21 L (22-30) mmol/L BUN 82 H (9-20) mg/dL Creatinine 2.34 H (0.66-1.25) mg/dL Glucose 196 H (74-99) mg/dL POC Glucose (mg/dL) 202 H (75-99) mg/dL Phosphorus (2.5-4.5) mg/dL Troponin I (0.000-0.034) ng/mL 10/20/18 10/20/18 Range/Units 09:29 12:14 RBC (4.30-5.90) m/uL Hgb (13.0-17.5) gm/dL Hct (39.0-53.0) % MCHC (31.0-37.0) g/dL Plt Count (150-450) k/uL Lymphocytes # (1.0-4.8) k/uL ABG pH (7.35-7.45) ABG pO2 73 L (83-108) mmHg ABG HCO3 (21-25) mmol/L ABG Total CO2 (19-24) mmol/L Chloride (98-107) mmol/L Carbon Dioxide (22-30) mmol/L BUN (9-20) mg/dL Creatinine (0.66-1.25) mg/dL Glucose (74-99) mg/dL POC Glucose (mg/dL) 131 H (75-99) mg/dL Phosphorus (2.5-4.5) mg/dL Troponin I (0.000-0.034) ng/mL Assessment and Plan Plan: 1 acute COPD/CHF exacerbation with secondary shortness of breath, consider possibility of a lower lobe pneumonia based on chest x-ray findings. Overall lung volumes are small and a pneumonia cannot be completely excluded. Nevertheless, the proBNP is quite elevated and there may be a component of CHF in addition to COPD exacerbation. I think the presentation is predominantly CHF and COPD may be a small Attributed factor for his respiratory failure. Another issue is the presence of a pericardial effusion that needs to be further evaluat ed by cardiology. No signs of any tamponade at this point in time. 2 acute on top of chronic stage III kidney disease. Nephrology is on the case. The patient's creatinine is at 2.3 with a baseline of 1.4 from 09/17/2018, and month ago. He has chronic stage III kidney disease with a GFR of 46. Likely underlying nephrosclerosis versus diabetic nephropathy. 3 acute on chronic hypoxic respiratory failure and the patient is currently on BiPAP for respiratory support 4 altered mentation likely secondary to above 5 hypertension 6 hyperlipidemia 7 old T12 compression fracture of the spine along with spondylolisthesis 8 legally blind with bilateral glucoma's/cataracts 9 previous history of CVA with secondary right-sided weakness 10 diabetes mellitus type 2 11 CHF with diastolic heart failure at an ejection fraction of 50-55% with an underlying hypertensive heart disease 12 urinary and bowel incontinence 13 legally blind 14 medical debility needs assistance for transfer 15 chronic anemia 16 pericardial effusion, awaiting a final read from cardiology. plan Condition remains critical. We'll continue the bicarb drip for another 24 hours. Continue IV Lasix. Asked the echocardiogram to be interpreted by cardiology regarding the pericardial effusion. No temporal not physiology for now. Blood gases will be repeated and the patient was found to have a pH of 7.4 with a pCO2 of 37 and pO2 of 73 while him on a BiPAP with an FiO2 of 40% and pressure of 12/5. He may be given a break from his BiPAP to high flow nasal cannula at a later stage. Repeat chest x-ray in the morning. Continue diuretics. Monitor renal function. Evaluate the pericardial effusion. We'll c francisca to follow.
[2018-10-20] MEDS: SODIUM BICARBONATE TAB 650 MG TAB PO SCH ×3 (13:09→20:39)
[2018-10-20 13:50] LABS: Amphetamine Screen,Urine Not Detected (NotDetected); Barbiturate Screen,Urine Not Detected (NotDetected); Benzodiazepines Screen,Urine Not Detected (NotDetected); Cocaine Screen,Urine Not Detected (NotDetected); Methadone Screen, Urine Not Detected (NotDetected); Opiate Screen,Urine Not Detected (NotDetected); Oxycodone Screen, Urine Not Detected (NotDetected); Phencyclidine Screen,Urine Not Detected (NotDetected); Tricyclic Antidepressant,Urine Not Detected (NotDetected); Urn Cannabinoid Scrn Not Detected (NotDetected)
--- NOTE | 2018-10-20 15:05 | ECHOF ---
Referral Reason:chf MEASUREMENTS -------- HEIGHT: 177.8 cm WEIGHT: 90.7 kg BP: RVIDd: 3.3 cm (< 3.3) IVSd: 1.5 cm (0.6 - 1.1) LVIDd: 3.2 cm (3.9 - 5.3) LVPWd: 1.7 cm (0.6 - 1.1) IVSs: 2.1 cm LVIDs: 1.5 cm LVPWs: 2.2 cm LAESV Index (A-L): 30.28 ml/m Ao Diam: 3.7 cm (2.0 - 3.7) AV Cusp: 1.1 cm (1.5 - 2.6) LA Diam: 3.1 cm (2.7 - 3.8) MV EXCURSION: 10.412 mm (> 18.000) MV EF SLOPE: 37 mm/s (70 - 150) EPSS: 1.2 cm MV E Sanchez: 1.39 m/s MV DecT: 202 ms MV A Sanchez: 1.81 m/s MV E/A Ratio: 0.77 AV maxP.91 mmHg AV meanP.37 mmHg AR PHT: 488 ms RAP: 5.00 mmHg RVSP: 18.54 mmHg FINDINGS -------- Sinus rhythm. This was a technically good study. The left ventricular size is normal. There is severe concentric left ventricular hypertrophy. Ove rall left ventricular systolic function is normal with, an EF between 55 - 60 %. The right ventricle is mildly enlarged. LA is midly dilated 29-33ml/m2. The right atrial size is normal. Interatrial and interventricular septum intact. Aortic valve is trileaflet and is severely thickened. There is mild aortic regurgitation. There i s moderate aortic stenosis present. Peak/mean gradient across the Aortic Valve is 40.91mmHg / 21.37 mmHg. The mitral valve leaflets are moderately thickened. Moderate mitral annular calcification present. Mild mitral regurgitation is present. The peak and mean MV gradients are 25.59mmHg 11.76mmHg as measured by doppler. [id number] mitral stenosis. Mild tricuspid regurgitation present. There is no evidence of pulmonary hypertension. The right v entricular systolic pressure, as measured by Doppler, is 18.54mmHg. There is no pulmonic regurgitation present. The aortic root size is normal. Normal inferior vena cava with normal inspiratory collapse consistent with estimated right atrial pre ssure of 5 mmHg. There is a Moderate to large, generalized pericardial effusion present. CONCLUSIONS -------- 1. Sinus rhythm. 2. This was a technically good study. 3. The left ventricular size is normal. 4. There is severe concentric left ventricular hypertrophy. 5. Overall left ventricular systolic function is normal with, an EF between 55 - 60 %. 6. The right ventricle is mildly enlarged. 7. LA is midly dilated 29-33ml/m2. 8. The right atrial size is normal. 9. Interatrial and interventricular septum intact. 10. Aortic valve is trileaflet and is severely thickened. 11. There is mild aortic regurgitation. 12. There is moderate aortic stenosis present. 13. Peak/mean gradient across the Aortic Valve is 40.91mmHg / 21.37mmHg. 14. The mitral valve leaflets are moderately thickened. 15. Moderate mitral annular calcification present. 16. Mild mitral regurgitation is present. 17. The peak and mean MV gradients are 25.59mmHg 11.76mmHg as measured by doppler. 18. Zyin-tu-cxpynrcx mitral stenosis. 19. Mild tricuspid regurgitation present. 20. There is no evidence of pulmonary hypertension. 21. The right ventricular systolic pressure, as measured by Doppler, is 18.54mmHg. 22. There is no pulmonic regurgitation present. 23. The aortic root size is normal. 24. Normal inferior vena cava with normal inspiratory collapse consistent with estimated right atrial pressure of 5 mmHg. 25. There is a Moderate to large, generalized pericardial effusion present. SHEARER HELPER: Brenda Ragland RDCS
[2018-10-20 16:02] LABS: Glucose,Whole Blood 123 mg/dL (75-99)
[2018-10-20] MEDS: DEXTROSE 5% IN WATER 1,000 ML with SODIUM BICARB (1 MEQ/ML) 150 ML IV SCH (16:06)
--- NOTE | 2018-10-20 16:10 | P.PN ---
Subjective 28-year-old admitted with respiratory failure most probably secondary to CHF exacerbation patient is also being treated for presumed exacerbation patient has multiple medical problems patient the overall prognosis is extremely poor functionality is externally poor bedbound legally blind. Patient has a legal guardian will discuss the legal guardian regarding DO NOT RESUSCITATE as well as hospice care patient is presently on BiPAP diarrhea wheezing well doesn't appear to have improved significantly compared to yesterday. Unable to obtain much of the history from the patient Review of systems: Unable to obtain due to his clinical condition All inpatient medications were reviewed and appropriate changes in these medications as dictated in the interval history and assessment and plan. Objective - Vital Signs Vital signs: Vital Signs Temp 98.2 F 10/20/18 12:00 Pulse 96 10/20/18 15:48 Resp 22 10/20/18 14:00 BP 132/83 10/20/18 14:00 Pulse Ox 95 10/20/18 15:38 Intake & Output 10/19/18 10/20/18 10/20/18 18:59 06:59 18:59 Intake Total 50 780 580 Output Total 600 1620 1150 Balance -550 -840 -570 Weight 79.016 kg 90.8 kg Intake: IV 50 780 580 Dextrose 5% in Water 1, 660 480 000 ml @ 60 mls/hr IV . [id number] EKATERINA with Sodium Bicarb (1 Meq/ml) 150 ml Rx#:[id number] Invasive Line 1 10 Piperacillin-Tazobactam 3 100 100 .375 gm In Sodium Chloride 0.9% 100 ml @ 25 mls/hr IVPB Q12HR [facility] Rx #:[id number] ns 40 20 Output: Urine 600 1620 1150 Other: Voiding Method Indwelling Catheter Indwelling Catheter Indwelling Catheter # Voids 1 - Exam PHYSICAL EXAMINATION: GENERAL: Patient is on BiPAP in respiratory distress HEENT patient has bilateral cataracts and legally blind No scleral icterus. No conjunctival pallor. Normocephalic, atraumatic. No pharyngeal erythema. No thyromegaly. CARDIOVASCULAR: S1 and S2 present. No murmurs, rubs, or gallops. PULMONARY: Significant expiratory wheezing and exam decreased air entry into bilateral lung [place] ABDOMEN: Soft, nontender, nondistended, normoactive bowel sounds. No palpable organomegaly. MUSCULOSKELETAL: No joint swelling or deformity. EXTREMITIES: No cyanosis, clubbing, or pedal edema. NEUROLOGICAL: Gross neurological examination did not reveal any focal deficits. SKIN: No rashes. - Labs CBC & Chem 7: 10/20/18 04:44 10/20/18 04:44 Labs: Abnormal Lab Results - Last 24 Hours (Table) 10/19/18 10/19/18 10/19/18 Range/Units 16:22 17:24 17:35 RBC 2.74 L (4.30-5.90) m/uL Hgb 7.5 L (13.0-17.5) gm/dL Hct 25.5 L (39.0-53.0) % MCHC 29.5 L (31.0-37.0) g/dL Plt Count 484 H (150-450) k/uL Lymphocytes # (1.0-4.8) k/uL ABG pH 7.22 L (7.35-7.45) ABG pO2 (83-108) mmHg ABG HCO3 14 L (21-25) mmol/L ABG Total CO2 16 L (19-24) mmol/L Chloride (98-107) mmol/L Carbon Dioxide (22-30) mmol/L BUN (9-20) mg/dL Creatinine (0.66-1.25) mg/dL Glucose (74-99) mg/dL POC Glucose (mg/dL) 186 H (75-99) mg/dL Phosphorus (2.5-4.5) mg/dL Troponin I (0.000-0.034) ng/mL 10/19/18 10/19/18 10/19/18 Range/Units 17:35 19:54 20:05 RBC (4.30-5.90) m/uL Hgb (13.0-17.5) gm/dL Hct (39.0-53.0) % MCHC (31.0-37.0) g/dL Plt Count (150-450) k/uL Lymphocytes # (1.0-4.8) k/uL ABG pH (7.35-7.45) ABG pO2 (83-108) mmHg ABG HCO3 (21-25) mmol/L ABG Total CO2 (19-24) mmol/L Chloride 117 H (98-107) mmol/L Carbon Dioxide 16 L (22-30) mmol/L BUN 79 H (9-20) mg/dL Creatinine 2.37 H (0.66-1.25) mg/dL Glucose 199 H (74-99) mg/dL POC Glucose (mg/dL) 188 H (75-99) mg/dL Phosphorus 5.4 H (2.5-4.5) mg/dL Troponin I 0.038 H* (0.000-0.034) ng/mL 10/20/18 10/20/18 10/20/18 Range/Units 00:00 04:00 04:44 RBC 2.69 L (4.30-5.90) m/uL Hgb 7.6 L (13.0-17.5) gm/dL Hct 24.8 L (39.0-53.0) % MCHC 30.6 L (31.0-37.0) g/dL Plt Count (150-450) k/uL Lymphocytes # 0.4 L (1.0-4.8) k/uL ABG pH (7.35-7.45) ABG pO2 (83-108) mmHg ABG HCO3 (21-25) mmol/L ABG Total CO2 (19-24) mmol/L Chloride (98-107) mmol/L Carbon Dioxide (22-30) mmol/L BUN (9-20) mg/dL Creatinine (0.66-1.25) mg/dL Glucose (74-99) mg/dL POC Glucose (mg/dL) 185 H 222 H (75-99) mg/dL Phosphorus (2.5-4.5) mg/dL Troponin I (0.000-0.034) ng/mL 10/20/18 10/20/18 10/20/18 Range/Units 04:44 08:38 09:29 RBC (4.30-5.90) m/uL Hgb (13.0-17.5) gm/dL Hct (39.0-53.0) % MCHC (31.0-37.0) g/dL Plt Count (150-450) k/uL Lymphocytes # (1.0-4.8) k/uL ABG pH (7.35-7.45) ABG pO2 73 L (83-108) mmHg ABG HCO3 (21-25) mmol/L ABG Total CO2 (19-24) mmol/L Chloride 116 H (98-107) mmol/L Carbon Dioxide 21 L (22-30) mmol/L BUN 82 H (9-20) mg/dL Creatinine 2.34 H (0.66-1.25) mg/dL Glucose 196 H (74-99) mg/dL POC Glucose (mg/dL) 202 H (75-99) mg/dL Phosphorus (2.5-4.5) mg/dL Troponin I (0.000-0.034) ng/mL 10/20/18 10/20/18 Range/Units 12:14 15:58 RBC (4.30-5.90) m/uL Hgb (13.0-17.5) gm/dL Hct (39.0-53.0) % MCHC (31.0-37.0) g/dL Plt Count (150-450) k/uL Lymphocytes # (1.0-4.8) k/uL ABG pH (7.35-7.45) ABG pO2 (83-108) mmHg ABG HCO3 (21-25) mmol/L ABG Total CO2 (19-24) mmol/L Chloride (98-107) mmol/L Carbon Dioxide (22-30) mmol/L BUN (9-20) mg/dL Creatinine (0.66-1.25) mg/dL Glucose (74-99) mg/dL POC Glucose (mg/dL) 131 H 123 H (75-99) mg/dL Phosphorus (2.5-4.5) mg/dL Troponin I (0.000-0.034) ng/mL Microbiology - Last 24 Hours (Table) 10/19/18 11:15 Blood Culture - Preliminary Blood No Growth after 24 hours Assessment and Plan Plan: -Acute hypoxic and hypercapnic on chronic hypercapnic respiratory failure: Most probably 70 COPD exacerbation CHF cannot be ruled out and patient is on IV Lasix along with the systemic steroids. Pulmonology is recommending antibiotics as mentioned above. He remains on BiPAP. -Acute on chronic kidney disease stage III acute renal failure probably prerenal azotemia from heart failure exacerbation expected to improve with IV Lasix monitor serum creatinine and electrolytes. -Acute metabolic encephalopathy secondary to above -Metabolic acidosis secondary to uremia patient will be started on oral bicarbonate supplementation -Legally blind with bilateral cataracts and history of glaucoma as well next and have an hypertension next and have an hyperlipidemia -Generalized deconditioning -Chronic respiratory failure basically secondary to COPD and is significantly low lung volumes. -Type 2 diabetes mellitus Patient will need further neurologic GI and DVT prophylaxis
[2018-10-20 20:39] LABS: Glucose,Whole Blood 204 mg/dL (75-99)
[2018-10-20] MEDS: methylPREDNISolone SOD SUCCI 40 MG/ML 1 ML VIAL IV SCH (21:14)
[2018-10-20] MEDS: LORazepam 2 MG/ML INJ IV PRN (22:31)
[2018-10-20 23:45] LABS: Glucose,Whole Blood 225 mg/dL (75-99)
[2018-10-21] MEDS: FUROSEMIDE 10 MG/ML 4 ML VIAL IV SCH ×3 (01:55→18:09)
[2018-10-21] MEDS: INSULIN ASPART (NovoLOG) 100 UNIT/ML VIAL SQ SCH ×5 (03:52→20:08)
[2018-10-21 03:57] LABS: Glucose,Whole Blood 159 mg/dL (75-99)
[2018-10-21 06:02] LABS: Basophils % (A) 0 %; Eosinophils # (A) 0.1 k/uL (0-0.7); Eosinophils % (A) 1 %; HCT 25.3 % (39.0-53.0); Hypochromasia Slight; Lymphocytes # (A) 0.5 k/uL (1.0-4.8); Lymphocytes % (A) 6 %; MCH 28.4 pg (25.0-35.0); MCHC 31.4 g/dL (31.0-37.0); MCV 90.5 fL (80.0-100.0); Mean Platelet Volume 7.3; Monocytes # (A) 0.5 k/uL (0-1.0); Monocytes % (A) 6 %; Neutrophils # (A) 7.5 k/uL (1.3-7.7); Neutrophils % (A) 87 %; Platelet Count 510 k/uL (150-450); RDW 13.7 % (11.5-15.5); WBC 8.7 k/uL (3.8-10.6)
[2018-10-21 06:20] LABS: Calcium 9.2 mg/dL (8.4-10.2); Potassium 3.8 mmol/L (3.5-5.1)
[2018-10-21] MEDS: IPRATROPIUM-ALBUTEROL 3 ML NEB INHALATION SCH ×4 (07:37→19:27)
--- NOTE | 2018-10-21 08:19 | P.PN ---
Subjective Progress Note Date: 10/21/18 Principal diagnosis: CHF/pleural effusion This is a 73-year-old gentleman who is hard hearing as well as somewhat poor historian was brought from an extended care facility to the hospital because of shortness of breath. The patient does have a past medical history consistent of f congestive heart failure secondary to diastolic dysfunction, the last echocardiogram from 2018 revealed normal LV function was evidence of mild aortic stenosis and mild aortic insufficiency, history of chronic obstructive pulmonary disease, diabetes, hypertension, dyslipidemia, chronic kidney disease, and also a diagnosis of paroxysmal atrial fibrillation based on reviewing his medical records. The patient was brought from an extended care facility to the hospital because of worsening shortness of breath as well as worsening bilateral lower extremities edema. No indication of any chest pain or chest discomfort. The patient normally is on oxygen at the extended care facility but it was noticed that he was requiring higher oxygen level and he was more short of breath. When he was brought to the hospital, the chest x-ray showed findings consistent with CHF. The BNP came in to be elevated at 15,000. The creatinine was 2.3. Overall the patient is lethargic and poor historian. Subsequently he was admitted to the ICU on he was started on Lasix IV. On examination this morning he still have severe bilateral lower extended is pitting edema and diminished breathing sounds bilaterally. The patient. The diagnosis of paroxysmal atrial fibrillation but there is no indication after I reviewed his home medication that he is on any oral anticoagulation. On follow-up with the patient today, 10/21/2018, the patient seems to be lethargic this morning. He underwent an echocardiogram yesterday which revealed normal LV function with mild aortic stenosis and moderate pericardial effusion. Hemodynamically he continues to be stable at this point. He is on Lasix IV and he seems to be tolerating that very well and he is diuresing very well. We'll continue the IV Lasix for now as far as the blood pressure is a stable and repeat the echocardiogram in the next 24-48 hours to assess the pericardial effusion again. Objective - Vital Signs Vital signs: Vital Signs Temp 98.3 F 10/21/18 04:00 Pulse 106 H 10/21/18 07:49 Resp 13 10/21/18 07:00 BP 152/82 10/21/18 07:00 Pulse Ox 95 10/21/18 07:39 Intake & Output 0510/21/18 10/21/18 18:59 06:59 18:59 Intake Total 880 820 Output Total 1900 1395 Balance -1020 -575 Weight 88.3 kg Intake: IV 880 720 Dextrose 5% in Water 1, 780 720 000 ml @ 60 mls/hr IV . [id number] EKATERINA with Sodium Bicarb (1 Meq/ml) 150 ml Rx#:[id number] Piperacillin-Tazobactam 3 100 .375 gm In Sodium Chloride 0.9% 100 ml @ 25 mls/hr IVPB Q12HR [facility] Rx #:[id number] Intake, IV Titration 100 Amount Piperacillin-Tazobactam 3 100 .375 gm In Sodium Chloride 0.9% 100 ml @ 25 mls/hr IVPB Q12HR [facility] Rx #:[id number] Output: Urine 1900 1395 Other: Voiding Method Indwelling Catheter Indwelling Catheter - Constitutional General appearance: Present: no acute distress - Respiratory Respiratory: bilateral: diminished - Cardiovascular Heart sounds: normal: S1, S2 Abnormal Heart Sounds: Present: systolic murmur - Labs CBC & Chem 7: 10/21/18 04:53 10/21/18 04:53 Labs: Abnormal Lab Results - Last 24 Hours (Table) 10/20/18 10/20/18 10/20/18 Range/Units 08:38 09:29 12:14 RBC (4.30-5.90) m/uL Hgb (13.0-17.5) gm/dL Hct (39.0-53.0) % Plt Count (150-450) k/uL Lymphocytes # (1.0-4.8) k/uL ABG pO2 73 L (83-108) mmHg Sodium (137-145) mmol/L Chloride (98-107) mmol/L BUN (9-20) mg/dL Creatinine (0.66-1.25) mg/dL Glucose (74-99) mg/dL POC Glucose (mg/dL) 202 H 131 H (75-99) mg/dL 10/20/18 10/20/18 10/20/18 Range/Units 15:58 20:38 23:43 RBC (4.30-5.90) m/uL Hgb (13.0-17.5) gm/dL Hct (39.0-53.0) % Plt Count (150-450) k/uL Lymphocytes # (1.0-4.8) k/uL ABG pO2 (83-108) mmHg Sodium (137-145) mmol/L Chloride (98-107) mmol/L BUN (9-20) mg/dL Creatinine (0.66-1.25) mg/dL Glucose (74-99) mg/dL POC Glucose (mg/dL) 123 H 204 H 225 H (75-99) mg/dL 10/21/18 10/21/18 10/21/18 Range/Units 03:49 04:53 04:53 RBC 2.80 L (4.30-5.90) m/uL Hgb 8.0 L (13.0-17.5) gm/dL Hct 25.3 L (39.0-53.0) % Plt Count 510 H (150-450) k/uL Lymphocytes # 0.5 L (1.0-4.8) k/uL ABG pO2 (83-108) mmHg Sodium 147 H (137-145) mmol/L Chloride 113 H (98-107) mmol/L BUN 90 H (9-20) mg/dL Creatinine 2.30 H (0.66-1.25) mg/dL Glucose 134 H (74-99) mg/dL POC Glucose (mg/dL) 159 H (75-99) mg/dL Microbiology - Last 24 Hours (Table) 10/19/18 11:15 Blood Culture - Preliminary Blood No Growth after 24 hours Assessment and Plan Assessment: Assessment #1 acute hypoxic respiratory failure #2 COPD exacerbation #3 CHF exacerbation secondary to diastolic dysfunction #4 change in mental status #5 paroxysmal atrial fibrillation #6 pericardial effusion Plan #1 continue the current dose of Lasix IV and continue monitor the kidney function and electrolytes #2 repeat the echocardiogram to assess the LV function and pericardial effusion #3 pulmonary/critical care on the case as well #4 follow-up with the patient Thank you for allowing us participate in his care
[2018-10-21] MEDS: LORazepam 2 MG/ML INJ IV PRN ×3 (09:58→22:05)
[2018-10-21 10:00] LABS: Glucose,Whole Blood 135 mg/dL (75-99)
[2018-10-21] MEDS: SODIUM CHLORIDE 0.9% 1,000 ML IV SCH (10:00)
[2018-10-21] MEDS: LEVOFLOXACIN 750MG-D5W PMX 750 MG in DEXTROSE/WATER 1 150ML.BAG IVPB SCH (10:13)
[2018-10-21] MEDS: PIPERACILLIN-TAZOBACTAM 3.375 GM in SODIUM CHLORIDE 0.9% 100 ML IVPB SCH ×2 (10:13→20:09)
[2018-10-21] MEDS: methylPREDNISolone SOD SUCCI 40 MG/ML 1 ML VIAL IV SCH ×2 (10:14→20:08)
[2018-10-21] MEDS: NITROGLYCERIN OINT 1 INCH/GM PACKET TOPICAL SCH ×4 (10:14→22:28)
[2018-10-21] MEDS: FAMOTIDINE 20 MG/2 ML VIAL IV SCH ×2 (10:14→20:09)
[2018-10-21] MEDS: HEPARIN SODIUM,PORCINE 5,000 UNIT/ML 1 ML VIAL SQ SCH ×2 (10:15→16:53)
[2018-10-21] MEDS: ASPIRIN 300 MG SUPP RECTAL SCH (10:15)
[2018-10-21] MEDS: SODIUM BICARBONATE TAB 650 MG TAB PO SCH ×5 (10:15→22:24)
--- NOTE | 2018-10-21 10:26 | XR ---
EXAMINATION TYPE: XR chest 1V portable DATE OF EXAM: 10/21/2018 COMPARISON: 10/20/2018 INDICATION: Short of breath TECHNIQUE: Single frontal view of the chest is obtained. FINDINGS: The heart size is enlarged. The pulmonary vasculature is normal. Right lower lobe infiltrate is present. Correlate for worsening pneumonia. Left pleural effusion is p resent. IMPRESSION: 1. Right lower lobe infiltrate. Correlate for pneumonia. 2. Cardiomegaly. 3. Small left pleural effusion
--- NOTE | 2018-10-21 11:23 | P.PN ---
Subjective Progress Note Date: 10/21/18 Principal diagnosis: This is 73-year-old male seen in consultation because of acute kidney injury, Cardio renal syndrome, chronic kidney disease and admitted with shortness of breath and confusion. He was unable to give any history currently as he is confused and is on a BiPAP. He was recently admitted on 10/13/2018 discharge 10/18/2018, at the time his diagnosis was acute renal failure from decreased intake. Supposedly he was discharged to a extended care facility where he was not using his oxygen as was recommended. He became confused and was brought in here. On admission His workup has shown creatinine is 2.31 on admission, sodium 147, 5.6, 118, 17 and anion gap is 12. BUN is 80. Blood gas 7.22, 35 and 91. White count 9500 hemoglobin 8 and platelet count 5 11,000. Normal AST and AST. Troponin 0.04 and 0.038 Ammonia and Drug screen negative, blood culture is negative. Since admission he was diuresed vigorously. He has responded with urine output of 30-95. Remains on BiPAP. Remains somewhat lethargic. His history significant for chronic kidney disease,He is also known with diastolic heart failure, ejection fraction 50%, At fib, chronic right-sided weakness from prior stroke chronic legal blindness, COPD ex-smoker diabetes type 2 urinary and bowel incontinence. Objective - Vital Signs Vital signs: Vital Signs Temp 98.3 F 10/21/18 08:00 Pulse 106 H 10/21/18 07:49 Resp 11 L 10/21/18 09:00 BP 141/88 10/21/18 09:00 Pulse Ox 90 L 10/21/18 09:00 Intake & Output 10/20/18 10/21/18 10/21/18 18:59 06:59 18:59 Intake Total 880 820 100 Output Total 1900 1395 300 Balance -1020 -575 -200 Weight 88.3 kg Intake: IV 880 720 100 Dextrose 5% in Water 1, 780 720 60 000 ml @ 60 mls/hr IV . [id number] EKTAERINA with Sodium Bicarb (1 Meq/ml) 150 ml Rx#:[id number] Piperacillin-Tazobactam 3 100 .375 gm In Sodium Chloride 0.9% 100 ml @ 25 mls/hr IVPB Q12HR EKATER[facility] Rx #:[id number] ns 40 Intake, IV Titration 100 Amount Piperacillin-Tazobactam 3 100 .375 gm In Sodium Chloride 0.9% 100 ml @ 25 mls/hr IVPB Q12HR [facility] Rx #:[id number] Output: Urine 1900 1395 300 Other: Voiding Method Indwelling Catheter Indwelling Catheter On examination he is on BiPAP, lethargic HEENT exam no JVP neck is supple no facial asymmetry Lungs are clear to auscultation fair air entry bilaterally Heart sounds are unremarkable no murmur rub gallop. Atrial fibrillation Abdomen soft nontender Extremity exam was mild edema Neurologically as mentioned obtunded - Labs CBC & Chem 7: 10/21/18 04:53 10/21/18 04:53 Labs: Abnormal Lab Results - Last 24 Hours (Table) 10/20/18 10/20/18 10/20/18 Range/Units 12:14 15:58 20:38 RBC (4.30-5.90) m/uL Hgb (13.0-17.5) gm/dL Hct (39.0-53.0) % Plt Count (150-450) k/uL Lymphocytes # (1.0-4.8) k/uL Sodium (137-145) mmol/L Chloride (98-107) mmol/L BUN (9-20) mg/dL Creatinine (0.66-1.25) mg/dL Glucose (74-99) mg/dL POC Glucose (mg/dL) 131 H 123 H 204 H (75-99) mg/dL 10/20/18 10/21/18 10/21/18 Range/Units 23:43 03:49 04:53 RBC 2.80 L (4.30-5.90) m/uL Hgb 8.0 L (13.0-17.5) gm/dL Hct 25.3 L (39.0-53.0) % Plt Count 510 H (150-450) k/uL Lymphocytes # 0.5 L (1.0-4.8) k/uL Sodium (137-145) mmol/L Chloride (98-107) mmol/L BUN (9-20) mg/dL Creatinine (0.66-1.25) mg/dL Glucose (74-99) mg/dL POC Glucose (mg/dL) 225 H 159 H (75-99) mg/dL 10/21/18 10/21/18 Range/Units 04:53 09:57 RBC (4.30-5.90) m/uL Hgb (13.0-17.5) gm/dL Hct (39.0-53.0) % Plt Count (150-450) k/uL Lymphocytes # (1.0-4.8) k/uL Sodium 147 H (137-145) mmol/L Chloride 113 H (98-107) mmol/L BUN 90 H (9-20) mg/dL Creatinine 2.30 H (0.66-1.25) mg/dL Glucose 134 H (74-99) mg/dL POC Glucose (mg/dL) 135 H (75-99) mg/dL Microbiology - Last 24 Hours (Table) 10/19/18 11:15 Blood Culture - Preliminary Blood No Growth after 24 hours Assessment and Plan Assessment: Impression 1. Acute kidney injury secondary to prerenal, possibly from cardiorenal syndrome. He has diastolic heart failure. Creatinine went up to 2.34 yesterday is stable at 2.3 this morning. He did respond very well with diuresis. His baseline is 1.47 dated 09/17/2018 month ago. 2. Chronic kidney disease stage III with GFR 46 mL per minute, Baseline creatinine 1.47 dated 09/17/2018 with trace proteinuria. Likely nephrosclerosis with possible diabetic nephropath 3. Admitted with confusion, no computed tomography scan on this admission but o had a computed tomography scan on previous admission 5 days ago on 10/14/2018 which was rather unremarkable. 4. COPD with exacerbation. 5. Congestive heart failure currently on Lasix 40 every 8 with good diuresis 6. Mild degree of non-gap acidosis secondary to chronic kidney disease. Bicarb is 17, and anion gap is 12. 7. Hyperkalemia secondary acute kidney injury and RTA. 8. [address] scans dated 01/07/2017 and more recently on 02/03/2018 size reported at 2.3 cm previously and 1.2 cm on the more recent computed tomography scan. This needs to be followed up as an outpatient. 9. Ascending aortic aneurysm 3.7 cm. Recommendation 1. Agree with continuation of aggressive diuresis and see how he responds. Currently on 40 mg IV Lasix daily 8 2. Would discontinue the IV bicarb and give him by mouth bicarb 650 4 times a day. 3. Will monitor renal function, blood pressure intake and output.
[2018-10-21 11:59] LABS: Glucose,Whole Blood 134 mg/dL (75-99)
--- NOTE | 2018-10-21 12:26 | P.PN ---
Subjective Progress Note Date: 10/21/18 73-year-old male patient came into the emergency department because of worsening shortness of breath. He is a very poor historian. He has multiple medical pounds and comorbidities. He is typically on 5 L of oxygen by nasal cannula and was reported that his pulse ox was low. He was having difficulties with breathing. Among his comorbidities, the patient has had previous history of CVA with some right-sided deficits. He has chronic stage III kidney disease. He is legally blind and has underlying diabetes mellitus type 2. Is known to have COPD and congestion heart failure essentially in the form of diastolic heart failure and has chronic atrial fibrillation. He has hypertension and hyperlip idemia in addition. At the time of his arrival, the patient's BNP level was quite elevated at 15,400. He had a component of non-anion gap metabolic acidosis with a serum bicarbonate of 17. He has also an acute kidney injury with a creatinine of 2.3. Note that the patient was discharged from the hospital yesterday. He was under the care of Dr. adams where he was treated for metabolic encephalopathy that was attributed to his renal failure as the patient a component of acute kidney injury. His presentation was mainly feeling lethargic and weak and not eating enough. His creatinine went up to 2.8. His KAMILA inhibitor was discontinued. He was given IV fluids. He felt better and he was discharged home. At time of discharge, he was asked to take and she'll for dietary supplement in addition to a combination of Lopressor and amiodarone for rate control, Actos for blood sugar, lipids of hyperlipidemia, lactulose for constipation, oral iron tablets supplements, Protonix 40 mg by m outh daily and aspirin 81 mg by mouth daily. He is also on Lipitor hyperlipidemia. Uses DuoNeb nebulized treatments around the clock. His current EKG showing a atrial fibrillation with a right bundle branch block pattern. His chest x-ray is consistent with cardiomegaly and small left-sided pleural effusion and developing right lower lobe infiltrate. The lung was essentially small. The patient was placed on BiPAP. The patient was started on IV Lasix. The patient was admitted to the medical floor under the care of Dr. Rendon. He was also started on IV Solu-Medrol. Lasix is currently at 40 mg every 8 hours. On today's evaluation of 10/20/2018 I'm seeing this patient for a follow-up. He is lethargic yet arousable. He remains on BiPAP throughout the night yesterday and this morning he remains on BiPAP at a pressure of 12/5 cm of water with an FiO2 of 50%. Chest x-ray still showing CHF and noted the patient's proBNP level was elevated at a time of admission. Echocardiogram was done and the patient was found to have a large pericardial effusion for that reason a cardiac cons ultation was ordered and the patient will be seen again by Dr. Costello. Meanwhile, the patient was started on a bicarb drip infusion yesterday regarding his underlying metabolic acidosis. Bicarb infusion is running at a rate of 6 an hour. The patient's BNP today is at 80 with a creatinine of 2.3. His serum bicarb level is up to 21. He is also being diuresis with IV Lasix. Is receiving Lasix at a dose of 40 mg every 8 hours. He is producing good amount of urine output. No significant bronchospasm and wheezing. I think the predominant failure was related to CHF and the presence of pericardial effusion could've contributed to his condition. No signs of any temporal for now. The patient was also was seen by nephrology On 10/21/2018, the patient slightly more awake and arousable compared to yesterday. He was taken off the BiPAP and he is maintaining good oxygen saturation while being on oxygen by nasal cannula at 5 L per minute. Chest x- ray still showing CHF, cardiomegaly, pleural effusions in addition to consolidation of the lung bases. The patient's presentation is typical of CHF and I'm suspecting underlying pneumonia in addition. His last bronchus spastic and wheezy compared to yesterday. Echocardiogram showed a moderate-sized pericardial effusion and there is no temporal another this point in time. The patient is still on IV Lasix. The patient was given bicarb infusion and serum bicarb normalized. He is still on Lasix 40 mg IV push every 8 hours. He is in a negative fluid balance. Less bronchospastic and wheezy. As the patient is becoming more awake, moderate consider starting some oral feeds on this patient. Otherwise, he is comfortable laying down comfortably in bed with on a significant complaints. His hemoglobin is at 8. White cell count of 8.7. Creatinine is at 2.3 which is stable compared to yesterday Objective - Vital Signs Vital signs: Vital Signs Temp 98.3 F 10/21/18 08:00 Pulse 96 10/21/18 12:05 Resp 23 10/21/18 11:00 BP 111/54 10/21/18 11:00 Pulse Ox 97 10/21/18 11:00 Intake & Output 10/20/18 10/21/18 10/21/18 18:59 06:59 18:59 Intake Total 880 820 280 Output Total 1900 1395 450 Balance -1020 -575 -170 Weight 88.3 kg Intake: IV 880 720 280 Dextrose 5% in Water 1, 780 720 60 000 ml @ 60 mls/hr IV . [id number] EKATERINA with Sodium Bicarb (1 Meq/ml) 150 ml Rx#:[id number] Piperacillin-Tazobactam 3 100 100 .375 gm In Sodium Chloride 0.9% 100 ml @ 25 mls/hr IVPB Q12HR EKATERINA Rx #:[id number] ns 120 Intake, IV Titration 100 Amount Piperacillin-Tazobactam 3 100 .375 gm In Sodium Chloride 0.9% 100 ml @ 25 mls/hr IVPB Q12HR EKATERINA Rx #:[id number] Output: Urine 1900 1395 450 Other: Voiding Method Indwelling Catheter Indwelling Catheter Indwelling Catheter - Exam Limitations: Legally blind with bilateral cataract and glaucoma physical limitation, General appearance: 72-year-old white male, a mild degree of respiratory distress. The patient is currently off the BiPAP and he is on 5 L of oxygen by nasal cannula. Head exam: Atraumatic, normocephalic. Eye exam: Chronic opacification of both eyes noted. No icterus. Neck exam: No neck masses, no stridor. Moist mucous membranes noted. Respiratory exam: Diminished breath sounds at the bases, no crackles or rhonchi or wheezes. No chest wall tenderness. Symmetrical expansion noted. The patient had diffuse expiratory wheezes this is improved Cardiac: Normal S1 and S2 no gallops, no murmur. GI/Abdominal exam: Obese, soft, nontender, no megaly, no rebound, positive bowel sounds. Extremities exam: No clubbing edema or cyanosis. Neurological exam: Awake, however the patient does follow simple commands. He does not verbalize long sentences and he answers yes and no. Psychiatric exam: Flat affect otherwise cannot be assessed. Skin exam: Examination of the skin revealed no evidence of significant rashes, suspicious appearing nevi or other concerning lesions. - Labs CBC & Chem 7: 10/21/18 04:53 10/21/18 04:53 Labs: Abnormal Lab Results - Last 24 Hours (Table) 10/20/18 10/20/18 10/20/18 Range/Units 15:58 20:38 23:43 RBC (4.30-5.90) m/uL Hgb (13.0-17.5) gm/dL Hct (39.0-53.0) % Plt Count (150-450) k/uL Lymphocytes # (1.0-4.8) k/uL Sodium (137-145) mmol/L Chloride (98-107) mmol/L BUN (9-20) mg/dL Creatinine (0.66-1.25) mg/dL Glucose (74-99) mg/dL POC Glucose (mg/dL) 123 H 204 H 225 H (75-99) mg/dL 10/21/18 10/21/18 10/21/18 Range/Units 03:49 04:53 04:53 RBC 2.80 L (4.30-5.90) m/uL Hgb 8.0 L (13.0-17.5) gm/dL Hct 25.3 L (39.0-53.0) % Plt Count 510 H (150-450) k/uL Lymphocytes # 0.5 L (1.0-4.8) k/uL Sodium 147 H (137-145) mmol/L Chloride 113 H (98-107) mmol/L BUN 90 H (9-20) mg/dL Creatinine 2.30 H (0.66-1.25) mg/dL Glucose 134 H (74-99) mg/dL POC Glucose (mg/dL) 159 H (75-99) mg/dL 10/21/18 10/21/18 Range/Units 09:57 11:56 RBC (4.30-5.90) m/uL Hgb (13.0-17.5) gm/dL Hct (39.0-53.0) % Plt Count (150-450) k/uL Lymphocytes # (1.0-4.8) k/uL Sodium (137-145) mmol/L Chloride (98-107) mmol/L BUN (9-20) mg/dL Creatinine (0.66-1.25) mg/dL Glucose (74-99) mg/dL POC Glucose (mg/dL) 135 H 134 H (75-99) mg/dL Microbiology - Last 24 Hours (Table) 10/19/18 11:15 Blood Culture - Preliminary Blood No Growth after 24 hours Assessment and Plan Plan: 1 acute COPD/CHF exacerbation with secondary shortness of breath, consider possibility of a lower lobe pneumonia based on chest x-ray findings. Overall lung volumes are small and a pneumonia cannot be completely excluded. Nevertheless, the proBNP is quite elevated and there may be a component of CHF in addition to COPD exacerbation. I think the presentation is predominantly CHF and COPD may be a small Contributing factor for his respiratory failure. On today's evaluation there may be also possibility of a lower lobe pneumonia right more than left. The patient is covered with diuretics. The patient on antibiotics. Another issue is the presence of a pericardial effusion that needs to be further evaluated by cardiology. No signs of any tamponade at this point in time. I discussed this with cardiology and the pleural effusion is moderate in size and there is no temporal not physiology. 2 acute on top of chronic stage III kidney disease. Nephrology is on the case. The patient's creatinine is at 2.3 with a baseline of 1.4 from 09/17/2018, and month ago. He has chronic stage III kidney disease with a GFR of 46. Likely underlying nephrosclerosis versus diabetic nephropathy. The patient is responding nicely to diuretics and the patient a negative fluid balance. 3 acute on chronic hypoxic respiratory failure and the patient is currently off BiPAP 4 altered mentation likely secondary to above 5 hypertension 6 hyperlipidemia 7 old T12 compression fracture of the spine along with spondylolisthesis 8 legally blind with bilateral glucoma's/cataracts 9 previous history of CVA with secondary right-sided weakness 10 diabetes mellitus type 2 11 CHF with diastolic heart failure at an ejection fraction of 50-55% with an underlying hypertensive heart disease 12 urinary and bowel incontinence 13 legally blind 14 medical debility needs assistance for transfer 15 chronic anemia 16 pericardial effusion, awaiting a final read from cardiology. plan Condition remains critical. Discontinue the bicarb infusion. Continued IV Lasix. The patient is receiving Lasix 40 mg every 8 hours. Continue Zosyn. Continue Levaquin. Maintenance fluid at 40 mL an hour normal saline. Off the BiPAP for now. Monitor mentation. May start some oral intake by tomorrow after completing a swallow evaluation. We'll continue to follow.
--- NOTE | 2018-10-21 14:13 | P.PN ---
Subjective 28-year-old admitted with respiratory failure most probably secondary to CHF exacerbation patient is also being treated for presumed exacerbation patient has multiple medical problems patient the overall prognosis is extremely poor functionality is externally poor bedbound legally blind. Patient has a legal guardian will discuss the legal guardian regarding DO NOT RESUSCITATE as well as hospice care patient is presently on BiPAP diarrhea wheezing well doesn't appear to have improved significantly compared to yesterday. Unable to obtain much of the history from the patient 10/21/2018 Patient is bit more arousable today but his respiratory status did not change significantly patient is in and out of BiPAP was a massive cannula yesterday h ave to go back on BiPAP again occasional agitation episodes Review of systems: Unable to obtain due to his clinical condition All inpatient medications were reviewed and appropriate changes in these medications as dictated in the interval history and assessment and plan. Objective - Vital Signs Vital signs: Vital Signs Temp 98.3 F 10/21/18 08:00 Pulse 92 10/21/18 13:00 Resp 19 10/21/18 13:00 BP 110/62 10/21/18 13:00 Pulse Ox 95 10/21/18 13:00 Intake & Output 10/20/18 10/21/18 10/21/18 18:59 06:59 18:59 Intake Total 880 820 360 Output Total 1900 1395 875 Balance -1020 -575 -515 Weight 88.3 kg Intake: IV 880 720 360 Dextrose 5% in Water 1, 780 720 60 000 ml @ 60 mls/hr IV . [id number] EKATERINA with Sodium Bicarb (1 Meq/ml) 150 ml Rx#:[id number] Piperacillin-Tazobactam 3 100 100 .375 gm In Sodium Chloride 0.9% 100 ml @ 25 mls/hr IVPB Q12HR EKATERINA Rx #:[id number] ns 200 Intake, IV Titration 100 Amount Piperacillin-Tazobactam 3 100 .375 gm In Sodium Chloride 0.9% 100 ml @ 25 mls/hr IVPB Q12HR EKATERINA Rx #:[id number] Output: Urine 1900 1395 875 Other: Voiding Method Indwelling Catheter Indwelling Catheter Indwelling Catheter - Exam PHYSICAL EXAMINATION: GENERAL: Patient is on BiPAP in respiratory distress HEENT patient has bilateral cataracts and legally blind No scleral icterus. No conjunctival pallor. Normocephalic, atraumatic. No pharyngeal erythema. No thyromegaly. CARDIOVASCULAR: S1 and S2 present. No murmurs, rubs, or gallops. PULMONARY: Significant expiratory wheezing and exam decreased air entry into bilateral lung [place] ABDOMEN: Soft, nontender, nondistended, normoactive bowel sounds. No palpable organomegaly. MUSCULOSKELETAL: No joint swelling or deformity. EXTREMITIES: No cyanosis, clubbing, or pedal edema. NEUROLOGICAL: Gross neurological examination did not reveal any focal deficits. SKIN: No rashes. - Labs CBC & Chem 7: 10/21/18 04:53 10/21/18 04:53 Labs: Abnormal Lab Results - Last 24 Hours (Table) 10/20/18 10/20/18 10/20/18 Range/Units 15:58 20:38 23:43 RBC (4.30-5.90) m/uL Hgb (13.0-17.5) gm/dL Hct (39.0-53.0) % Plt Count (150-450) k/uL Lymphocytes # (1.0-4.8) k/uL Sodium (137-145) mmol/L Chloride (98-107) mmol/L BUN (9-20) mg/dL Creatinine (0.66-1.25) mg/dL Glucose (74-99) mg/dL POC Glucose (mg/dL) 123 H 204 H 225 H (75-99) mg/dL 10/21/18 10/21/18 10/21/18 Range/Units 03:49 04:53 04:53 RBC 2.80 L (4.30-5.90) m/uL Hgb 8.0 L (13.0-17.5) gm/dL Hct 25.3 L (39.0-53.0) % Plt Count 510 H (150-450) k/uL Lymphocytes # 0.5 L (1.0-4.8) k/uL Sodium 147 H (137-145) mmol/L Chloride 113 H (98-107) mmol/L BUN 90 H (9-20) mg/dL Creatinine 2.30 H (0.66-1.25) mg/dL Glucose 134 H (74-99) mg/dL POC Glucose (mg/dL) 159 H (75-99) mg/dL 10/21/18 10/21/18 Range/Units 09:57 11:56 RBC (4.30-5.90) m/uL Hgb (13.0-17.5) gm/dL Hct (39.0-53.0) % Plt Count (150-450) k/uL Lymphocytes # (1.0-4.8) k/uL Sodium (137-145) mmol/L Chloride (98-107) mmol/L BUN (9-20) mg/dL Creatinine (0.66-1.25) mg/dL Glucose (74-99) mg/dL POC Glucose (mg/dL) 135 H 134 H (75-99) mg/dL Microbiology - Last 24 Hours (Table) 10/19/18 11:15 Blood Culture - Preliminary Blood No Growth after 48 hours Assessment and Plan Plan: -Acute hypoxic and hypercapnic on chronic hypercapnic respiratory failure: Most probably 70 COPD exacerbation CHF cannot be ruled out and patient is on IV Lasix along with the systemic steroids. Pulmonology is recommending antibiotics as mentioned above. He remains on BiPAP. Patient does have moderate pericardial effusion, not in [place] not cardiology is monitoring this -Acute on chronic kidney disease stage III acute renal failure probably prerenal azotemia from heart failure exacerbation expected to improve with IV Lasix monitor serum creatinine and electrolytes. -Acute metabolic encephalopathy secondary to above -Metabolic acidosis secondary to uremia patient will be started on oral bicarbonate supplementation -Legally blind with bilateral cataracts and history of glaucoma as well next and have an hypertension next and have an hyperlipidemia -Generalized deconditioning -Chronic respiratory failure basically secondary to COPD and is significantly low lung volumes. -Type 2 diabetes mellitus Patient will need further neurologic GI and DVT prophylaxis
[2018-10-21 16:16] LABS: Glucose,Whole Blood 178 mg/dL (75-99)
[2018-10-21 20:04] LABS: Glucose,Whole Blood 202 mg/dL (75-99)
[2018-10-21] MEDS ORDERED: POTASSIUM CHLORIDE 40 MEQ in WATER FOR INJECTION 1 100ML.BAG IVPB STA (20:16)
[2018-10-21] MEDS ORDERED: POTASSIUM CHLORIDE 20 MEQ in WATER FOR INJECTION 1 100ML.BAG IVPB SCH (21:00)
[2018-10-21] MEDS ORDERED: POTASSIUM CHLORIDE 10 MEQ in WATER FOR INJECTION 1 100ML.BAG IVPB SCH (21:35)
[2018-10-21] MEDS: POTASSIUM CHLORIDE 10 MEQ in WATER FOR INJECTION 1 100ML.BAG IVPB SCH (22:28)
[2018-10-21 23:52] LABS: Glucose,Whole Blood 150 mg/dL (75-99)
[2018-10-22 00:43] LABS: Glucose,Whole Blood 151 mg/dL (75-99)
[2018-10-22] MEDS: HEPARIN SODIUM,PORCINE 5,000 UNIT/ML 1 ML VIAL SQ SCH ×3 (00:46→16:26)
[2018-10-22] MEDS: INSULIN ASPART (NovoLOG) 100 UNIT/ML VIAL SQ SCH ×6 (00:46→20:09)
[2018-10-22] MEDS: POTASSIUM CHLORIDE 10 MEQ in WATER FOR INJECTION 1 100ML.BAG IVPB SCH ×7 (00:47→16:27)
[2018-10-22] MEDS: FUROSEMIDE 10 MG/ML 4 ML VIAL IV SCH ×3 (02:58→20:11)
[2018-10-22 04:08] LABS: Glucose,Whole Blood 145 mg/dL (75-99)
[2018-10-22 06:20] LABS: Albumin 2.8 g/dL (3.5-5.0); Basophils % (A) 0 %; Calcium 8.9 mg/dL (8.4-10.2); Eosinophils # (A) 0.1 k/uL (0-0.7); Eosinophils % (A) 1 %; HCT 24.7 % (39.0-53.0); HGB 7.7 gm/dL (13.0-17.5); Hypochromasia Moderate; Lymphocytes # (A) 0.5 k/uL (1.0-4.8); Lymphocytes % (A) 8 %; MCHC 31.1 g/dL (31.0-37.0); MCV 89.9 fL (80.0-100.0); Mean Platelet Volume 7.2; Monocytes # (A) 0.3 k/uL (0-1.0); Monocytes % (A) 5 %; Neutrophils # (A) 5.1 k/uL (1.3-7.7); Neutrophils % (A) 85 %; Platelet Count 430 k/uL (150-450); Potassium 3.6 mmol/L (3.5-5.1); RBC 2.75 m/uL (4.30-5.90); RDW 13.9 % (11.5-15.5); Total Bilirubin 0.8 mg/dL (0.2-1.3); Total Protein 5.1 g/dL (6.3-8.2)
[2018-10-22] MEDS: IPRATROPIUM-ALBUTEROL 3 ML NEB INHALATION SCH ×4 (07:28→19:53)
[2018-10-22 08:00] LABS: Glucose,Whole Blood 175 mg/dL (75-99)
[2018-10-22] MEDS: FAMOTIDINE 20 MG/2 ML VIAL IV SCH ×2 (08:10→20:12)
[2018-10-22] MEDS: methylPREDNISolone SOD SUCCI 40 MG/ML 1 ML VIAL IV SCH ×2 (08:10→20:12)
[2018-10-22] MEDS: PIPERACILLIN-TAZOBACTAM 3.375 GM in SODIUM CHLORIDE 0.9% 100 ML IVPB SCH ×2 (08:16→20:12)
[2018-10-22] MEDS: NITROGLYCERIN OINT 1 INCH/GM PACKET TOPICAL SCH ×5 (08:17→23:10)
[2018-10-22] MEDS: SODIUM CHLORIDE 0.9% 1,000 ML IV SCH (08:18)
[2018-10-22] MEDS: LORazepam 2 MG/ML INJ IV PRN ×4 (08:31→20:03)
[2018-10-22 10:07] LABS: Iron Saturation 4.7 (15.00-50.00)
[2018-10-22] MEDS: SODIUM BICARBONATE TAB 650 MG TAB PO SCH (10:25)
[2018-10-22] MEDS: ASPIRIN 300 MG SUPP RECTAL SCH (10:31)
[2018-10-22] MEDS ORDERED: hydrALAZINE HCL 20 MG/ML 1 ML VIAL IVP PRN (10:36)
--- NOTE | 2018-10-22 11:08 | P.PN ---
Subjective Patient is seen in follow-up for acute kidney injury. Patient has chronic kidney disease stage III secondary to cardiorenal syndrome and possibly diabetic kidney disease with baseline creatinine in the range of 1.4-1.6. Creatinine today is up to 2.39. Patient has nonoliguric. He is maintained on Lasix 40 mg IV 3 times daily. Patient remains confused. Oral intake is poor. Sodium level is 147. Vital signs are stable. General: The patient appeared well nourished and normally developed. HEENT: Head exam is unremarkable. Neck is without jugular venous distension. LUNGS: Lungs are clear to auscultation and percussion. Breath sounds decreased. HEART: Rate and Rhythm are regular. First and second heart sounds normal. No murmurs, rubs or gallops. ABDOMEN: Abdominal exam reveals normal bowel sounds. Non-tender and non- distended. No evidence of peritonitis. EXTREMITITES: 1+ edema. Objective - Vital Signs Vital signs: Vital Signs Temp 98.1 F 10/22/18 08:00 Pulse 101 H 10/22/18 11:01 Resp 31 H 10/22/18 10:00 BP 137/95 10/22/18 10:00 Pulse Ox 96 10/22/18 10:00 Intake & Output 10/21/18 10/22/18 10/22/18 18:59 06:59 18:59 Intake Total 710 980 260 Output Total 2190 1975 640 Balance -1480 -995 -380 Weight 85.1 kg Intake: IV 710 580 260 Dextrose 5% in Water 1, 60 000 ml @ 60 mls/hr IV . [id number] EKATERINA with Sodium Bicarb (1 Meq/ml) 150 ml Rx#:[id number] Levaquin 150 Piperacillin-Tazobactam 3 100 100 50 .375 gm In Sodium Chloride 0.9% 100 ml @ 25 mls/hr IVPB Q12HR EKATERINA Rx #:[id number] d5w 50 ns 400 480 160 Intake, IV Titration 400 Amount Potassium Chloride 10 meq 400 In Water For Injection 1 100ml.bag @ 50 mls/hr IVPB Q2H EKATERINA Rx#: [id number] Output: Urine 2190 1975 640 Other: Voiding Method Indwelling Catheter Indwelling Catheter Indwelling Catheter - Labs CBC & Chem 7: 10/22/18 05:39 10/22/18 05:39 Labs: Abnormal Lab Results - Last 24 Hours (Table) 10/20/18 10/21/18 10/21/18 Range/Units 04:44 11:56 16:14 RBC (4.30-5.90) m/uL Hgb (13.0-17.5) gm/dL Hct (39.0-53.0) % Lymphocytes # (1.0-4.8) k/uL Sodium (137-145) mmol/L Chloride (98-107) mmol/L BUN (9-20) mg/dL Creatinine (0.66-1.25) mg/dL Glucose (74-99) mg/dL POC Glucose (mg/dL) 134 H 178 H (75-99) mg/dL Iron 11 L (65-175) ug/dL Iron Saturation 4.70 L (15.00-50.00) ALT (21-72) U/L Total Protein (6.3-8.2) g/dL Albumin (3.5-5.0) g/dL 10/21/18 10/21/18 10/22/18 Range/Units 20:01 23:38 00:40 RBC (4.30-5.90) m/uL Hgb (13.0-17.5) gm/dL Hct (39.0-53.0) % Lymphocytes # (1.0-4.8) k/uL Sodium (137-145) mmol/L Chloride (98-107) mmol/L BUN (9-20) mg/dL Creatinine (0.66-1.25) mg/dL Glucose (74-99) mg/dL POC Glucose (mg/dL) 202 H 150 H 151 H (75-99) mg/dL Iron (65-175) ug/dL Iron Saturation (15.00-50.00) ALT (21-72) U/L Total Protein (6.3-8.2) g/dL Albumin (3.5-5.0) g/dL 10/22/18 10/22/18 10/22/18 Range/Units 04:04 05:39 05:39 RBC 2.75 L (4.30-5.90) m/uL Hgb 7.7 L (13.0-17.5) gm/dL Hct 24.7 L (39.0-53.0) % Lymphocytes # 0.5 L (1.0-4.8) k/uL Sodium 147 H (137-145) mmol/L Chloride 111 H (98-107) mmol/L BUN 83 H (9-20) mg/dL Creatinine 2.39 H (0.66-1.25) mg/dL Glucose 148 H (74-99) mg/dL POC Glucose (mg/dL) 145 H (75-99) mg/dL Iron (65-175) ug/dL Iron Saturation (15.00-50.00) ALT 19 L (21-72) U/L Total Protein 5.1 L (6.3-8.2) g/dL Albumin 2.8 L (3.5-5.0) g/dL 10/22/18 Range/Units 07:57 RBC (4.30-5.90) m/uL Hgb (13.0-17.5) gm/dL Hct (39.0-53.0) % Lymphocytes # (1.0-4.8) k/uL Sodium (137-145) mmol/L Chloride (98-107) mmol/L BUN (9-20) mg/dL Creatinine (0.66-1.25) mg/dL Glucose (74-99) mg/dL POC Glucose (mg/dL) 175 H (75-99) mg/dL Iron (65-175) ug/dL Iron Saturation (15.00-50.00) ALT (21-72) U/L Total Protein (6.3-8.2) g/dL Albumin (3.5-5.0) g/dL Microbiology - Last 24 Hours (Table) 10/19/18 11:15 Blood Culture - Preliminary Blood No Growth after 48 hours Assessment and Plan Plan: Assessment: 1. Acute kidney injury mostly prerenal secondary to cardiorenal syndrome. Creatinine 2.39 today. 2. Volume overload. Improving with diuresis. 3. Diastolic CHF with moderate aortic stenosis. 4. Chronic kidney disease stage III with baseline creatinine in the range of 1.4-1.6 secondary to cardiorenal syndrome and possibly diabetic kidney disease. 5. Hyponatremia secondary to lack of water intake. 6. Hypokalemia secondary to diuresis. 7. Acute hypoxic respiratory failure secondary to volume overload as well as COPD exacerbation. 8. Metabolic acidosis secondary to acute kidney injury. Resolved. Plan: Decrease Lasix to 40 mg IV twice daily. Potassium being replaced. Change normal saline to D5W at 50 mL an hour. Discontinue oral sodium bicarbonate. Check magnesium level as well.
[2018-10-22] MEDS: DEXTROSE 5% IN WATER 1,000 ML IV SCH (11:34)
[2018-10-22] MEDS ORDERED: MORPHINE SULFATE 4 MG/ML SYRINGE IVP STA (11:42)
--- NOTE | 2018-10-22 11:47 | P.PN ---
Subjective Progress Note Date: 10/22/18 Principal diagnosis: Acute on chronic hypoxic respiratory failure secondary to COPD, congestive heart failure, and suspect aspiration pneumonia involving the right lower lobe and l eft lower lobe. 73-year-old male patient came into the emergency department because of worsening shortness of breath. He is a very poor historian. He has multiple medical pounds and comorbidities. He is typically on 5 L of oxygen by nasal cannula and was reported that his pulse ox was low. He was having difficulties with breathing. Among his comorbidities, the patient has had previous history of CVA with some right-sided deficits. He has chronic stage III kidney disease. He is legally blind and has underlying diabetes mellitus type 2. Is known to have COPD and congestion heart failure essentially in the form of diastolic heart failure and has chronic atrial fibrillation. He has hypertension and hyperlipidemia in addition. At the time of his arrival, the patient's BNP level was quite elevated at 15,400. He had a component of non-anion gap metabolic acidosis with a serum bicarbonate of 17. He has also an acute kidney injury with a creatinine of 2.3. Note that the patient was discharged from the hospital yesterday. He was under the care of Dr. adams where he was magda arboleda for metabolic encephalopathy that was attributed to his renal failure as the patient a component of acute kidney injury. His presentation was mainly feeling lethargic and weak and not eating enough. His creatinine went up to 2.8. His KAMILA inhibitor was discontinued. He was given IV fluids. He felt better and he was discharged home. At time of discharge, he was asked to take and she'll for dietary supplement in addition to a combination of Lopressor and amiodarone for rate control, Actos for blood sugar, lipids of hyperlipidemia, lactulose for constipation, oral iron tablets supplements, Protonix 40 mg by mouth daily and aspirin 81 mg by mouth daily. He is also on Lipitor hyperlipidemia. Uses DuoNeb nebulized treatments around the clock. His current EKG showing a atrial fibrillation with a right bundle branch block pattern. His chest x-ray is consistent with cardiomegaly and small left-sided pleural effusion and developing right lower lobe infiltrate. The lung was essentially small. The patient was placed on BiPAP. The patient was started on IV Lasix. The patient was admitted to the medical floor under the care of Dr. Rendon. He was also started on IV Solu-Medrol. Lasix is currently at 40 mg every 8 hours. On today's evaluation of 10/20/2018 I'm seeing this patient for a follow-up. He is lethargic yet arousable. He remains on BiPAP throughout the night yesterday and this morning he remains on BiPAP at a pressure of 12/5 cm of water with an FiO2 of 50%. Chest x-ray still showing CHF and noted the patient's proBNP level was elevated at a time of admission. Echocardiogram was done and the patient was found to have a large pericardial effusion for that reason a cardiac consultation was ordered and the patient will be seen again by Dr. Costello. Meanwhile, the patient was started on a bicarb drip infusion yesterday regarding his underlying metabolic acidosis. Bicarb infusion is running at a rate of 6 an hour. The patient's BNP today is at 80 with a creatinine of 2.3. His serum bicarb level is up to 21. He is also being diuresis with IV Lasix. Is receiving Lasix at a dose of 40 mg every 8 hours. He is producing good amount of urine output. No significant bronchospasm and wheezing. I think the predominant failure was related to CHF and the presence of pericardial effusion could've contributed to his condition. No signs of any temporal for now. The patient was also was seen by nephrology On 10/21/2018, the patient slightly more awake and arousable compared to yesterday. He was taken off the BiPAP and he is maintaining good oxygen saturation while being on oxygen by nasal cannula at 5 L per minute. Chest x- ray still showing CHF, cardiomegaly, pleural effusions in addition to consolidation of the lung bases. The patient's presentation is typical of CHF and I'm suspecting underlying pneumonia in addition. His last bronchus spastic and wheezy compared to yesterday. Echocardiogram showed a moderate-sized pericardial effusion and there is no temporal another this point in time. The patient is still on IV Lasix. The patient was given bicarb infusion and serum bicarb normalized. He is still on Lasix 40 mg IV push every 8 hours. He is in a negative fluid balance. Less bronchospastic and wheezy. As the patient is b ecoming more awake, moderate consider starting some oral feeds on this patient. Otherwise, he is comfortable laying down comfortably in bed with on a significant complaints. His hemoglobin is at 8. White cell count of 8.7. Creatinine is at 2.3 which is stable compared to yesterday Reevaluated today on 10/22/2018, patient remains confused, off BiPAP presently, he is on nasal cannula, 5 L/m. Chest x-ray continues to show congestive heart failure and some component of pneumonia. Patient remains on diuretics, antibiotics, seems to be improving clinically. His last echocardiogram did show moderate sized pericardial effusion and he is still on IV Lasix. Tolerating Lasix 40 mg IV push every 8 hours, patient seems to be on nasal cannula, in no distress. However his mental status is poor. And the patient is a bit encephalopathic. CBC showed hemoglobin of 7.73% of 6 sodium is a bit elevated at 147 BUN is 83 creatinine 2.39. Objective - Vital Signs Vital signs: Vital Signs Temp 98.1 F 10/22/18 08:00 Pulse 101 H 10/22/18 11:01 Resp 25 H 10/22/18 11:00 BP 178/92 10/22/18 11:00 Pulse Ox 100 10/22/18 11:00 Intake & Output 10/21/18 10/22/18 10/22/18 18:59 06:59 18:59 Intake Total 710 980 260 Output Total 2191974 640 Balance -1480 -995 -380 Weight 85.1 kg Intake: IV 710 580 260 Dextrose 5% in Water 1, 60 000 ml @ 60 mls/hr IV . [id number] EKATERINA with Sodium Bicarb (1 Meq/ml) 150 ml Rx#:[id number] Levaquin 150 Piperacillin-Tazobactam 3 100 100 50 .375 gm In Sodium Chloride 0.9% 100 ml @ 25 mls/hr IVPB Q12HR EKATERINA Rx #:[id number] d5w 50 ns 400 480 160 Intake, IV Titration 400 Amount Potassium Chloride 10 meq 400 In Water For Injection 1 100ml.bag @ 50 mls/hr IVPB Q2H EKATERINA Rx#: [id number] Output: Urine 2190 1975 640 Other: Voiding Method Indwelling Catheter Indwelling Catheter Indwelling Catheter - Exam Physical Exam: Revealed a 73-year-old white male in no distress, legally blind. Presently on 5 L via nasal cannula Head: Atraumatic, normocephalic. HEENT:[Neck is supple.] [No neck masses.] [No thyromegaly.] [No JVD.] There is evidence of chronic opacification of both eyes, no icterus. Chest: [Crackles and rhonchi at the bases wheezing on forced expiratory m aneuver.] Cardiac Exam: [Normal S1 and S2, no S3 gallop, no murmur.] Abdomen: Obese, [Soft, nontender, no megaly, no rebound, no guarding, normal bowel sounds.] Extremities: [No clubbing, 1+ bipedal edema, no cyanosis.] Neurological Exam: Awake, follows simple instructions, does not verbalize long sentences. Psychiatric: Flat affect, depressed mood, poor mental status. Skin: No rashes, no evidence of cellulitis. - Labs CBC & Chem 7: 10/22/18 05:39 10/22/18 05:39 Labs: Abnormal Lab Results - Last 24 Hours (Table) 10/20/18 10/21/18 10/21/18 Range/Units 04:44 11:56 16:14 RBC (4.30-5.90) m/uL Hgb (13.0-17.5) gm/dL Hct (39.0-53.0) % Lymphocytes # (1.0-4.8) k/uL Sodium (137-145) mmol/L Chloride (98-107) mmol/L BUN (9-20) mg/dL Creatinine (0.66-1.25) mg/dL Glucose (74-99) mg/dL POC Glucose (mg/dL) 134 H 178 H (75-99) mg/dL Iron 11 L (65-175) ug/dL Iron Saturation 4.70 L (15.00-50.00) ALT (21-72) U/L Total Protein (6.3-8.2) g/dL Albumin (3.5-5.0) g/dL 10/21/18 10/21/18 10/22/18 Range/Units 20:01 23:38 00:40 RBC (4.30-5.90) m/uL Hgb (13.0-17.5) gm/dL Hct (39.0-53.0) % Lymphocytes # (1.0-4.8) k/uL Sodium (137-145) mmol/L Chloride (98-107) mmol/L BUN (9-20) mg/dL Creatinine (0.66-1.25) mg/dL Glucose (74-99) mg/dL POC Glucose (mg/dL) 202 H 150 H 151 H (75-99) mg/dL Iron (65-175) ug/dL Iron Saturation (15.00-50.00) ALT (21-72) U/L Total Protein (6.3-8.2) g/dL Albumin (3.5-5.0) g/dL 10/22/18 10/22/18 10/22/18 Range/Units 04:04 05:39 05:39 RBC 2.75 L (4.30-5.90) m/uL Hgb 7.7 L (13.0-17.5) gm/dL Hct 24.7 L (39.0-53.0) % Lymphocytes # 0.5 L (1.0-4.8) k/uL Sodium 147 H (137-145) mmol/L Chloride 111 H (98-107) mmol/L BUN 83 H (9-20) mg/dL Creatinine 2.39 H (0.66-1.25) mg/dL Glucose 148 H (74-99) mg/dL POC Glucose (mg/dL) 145 H (75-99) mg/dL Iron (65-175) ug/dL Iron Saturation (15.00-50.00) ALT 19 L (21-72) U/L Total Protein 5.1 L (6.3-8.2) g/dL Albumin 2.8 L (3.5-5.0) g/dL 10/22/18 Range/Units 07:57 RBC (4.30-5.90) m/uL Hgb (13.0-17.5) gm/dL Hct (39.0-53.0) % Lymphocytes # (1.0-4.8) k/uL Sodium (137-145) mmol/L Chloride (98-107) mmol/L BUN (9-20) mg/dL Creatinine (0.66-1.25) mg/dL Glucose (74-99) mg/dL POC Glucose (mg/dL) 175 H (75-99) mg/dL Iron (65-175) ug/dL Iron Saturation (15.00-50.00) ALT (21-72) U/L Total Protein (6.3-8.2) g/dL Albumin (3.5-5.0) g/dL Microbiology - Last 24 Hours (Table) 10/19/18 11:15 Blood Culture - Preliminary Blood No Growth after 48 hours Assessment and Plan Assessment: Impression: 1 acute on chronic hypoxic respiratory failure, multifactorial, secondary to congestive heart failure/diastolic dysfunction, acute exacerbation of COPD, and strongly suspect aspiration pneumonia. 2 moderate pericardial effusion but no tamponade. Being addressed by cardiolo gy. 3 acute on chronic kidney disease, being followed by nephrology. Patient has known history of chronic kidney disease GFR of 46. Likely secondary to nephrosclerosis or diabetic nephropathy. 4 altered mental status, suspect some component of metabolic encephalopathy. 5 diastolic congestive heart failure 6 legally blind 7 chronic anemia 8 type 2 diabetes with complications including nephropathy and retinopathy 9 history of hypertension 10 medical debility Recommendation: Continue diuretics, antibiotics, including Zosyn and Levaquin, continue to titrate FiO2 down as tolerated, we will monitor in the ICU for the next 24 hours, and possibly transfer out of the ICU in the next 24 hours. Prognosis remains guarded and poor considering his multiple comorbidities as listed above. Time with Patient: Less than 30
[2018-10-22 12:34] LABS: Glucose,Whole Blood 173 mg/dL (75-99)
[2018-10-22] MEDS ORDERED: Magnesium Replacement Protocol 1 EACH MISC MISCELLANE PRN (13:19)
--- NOTE | 2018-10-22 14:48 | PN ---
PROGRESS NOTE The history is mostly obtained from the nurse as well as old charts. Patient's clinical panels and the labs and medications are reviewed. Patient is admitted with acute respiratory distress. Patient is being treated for pneumonia as well as possible congestive cardiac failure. Patient has also acute on chronic renal failure. Patient has been noticed to have a loud systolic murmur with absent second heart sounds. Echocardiogram shows evidence of moderate degree of pericardial effusion as well as a possible moderate to severe aortic stenosis. At present, patient has been responding to the IV diuretic therapy. Patient's electrolytes are normal. Creatinine is 2.39, BUN is 23. Patient is quite agitated which causes severe intermittent sinus tachycardia. We will continue the patient on the current medications. We will repeat echocardiogram in 2-3 days to assess the pericardial effusion. Patient's overall prognosis is very poor. KASHMIR / IJN: [id number] /
--- NOTE | 2018-10-22 15:50 | P.PN ---
Subjective 28-year-old admitted with respiratory failure most probably secondary to CHF exacerbation patient is also being treated for presumed exacerbation patient has multiple medical problems patient the overall prognosis is extremely poor functionality is externally poor bedbound legally blind. Patient has a legal guardian will discuss the legal guardian regarding DO NOT RESUSCITATE as well as hospice care patient is presently on BiPAP diarrhea wheezing well doesn't appear to have improved significantly compared to yesterday. Unable to obtain much of the history from the patient 10/21/2018 Patient is bit more arousable today but his respiratory status did not change significantly patient is in and out of BiPAP was a massive cannula yesterday h ave to go back on BiPAP again occasional agitation episodes. 10/22/2018 Patient is on a BiPAP mental status no significant improvement. Had a lengthy discussion with the public guardian regarding DO NOT RESUSCITATE, comfort care and hospice. Will await their decision. Review of systems: Unable to obtain due to his clinical condition All inpatient medications were reviewed and appropriate changes in these medications as dictated in the interval history and assessment and plan. Objective - Vital Signs Vital signs: Vital Signs Temp 98.2 F 10/22/18 12:00 Pulse 106 H 10/22/18 15:44 Resp 19 10/22/18 14:00 BP 123/65 10/22/18 14:00 Pulse Ox 95 10/22/18 14:00 Intake & Output 10/21/18 10/22/18 10/22/18 18:59 06:59 18:59 Intake Total 710 980 410 Output Total 2189 1974 865 Balance -1480 -995 -455 Weight 85.1 kg Intake: IV 710 580 410 Dextrose 5% in Water 1, 60 000 ml @ 60 mls/hr IV . [id number] EKATERINA with Sodium Bicarb (1 Meq/ml) 150 ml Rx#:[id number] Levaquin 150 Piperacillin-Tazobactam 3 100 100 50 .375 gm In Sodium Chloride 0.9% 100 ml @ 25 mls/hr IVPB Q12HR EKATERINA Rx #:[id number] d5w 200 ns 400 480 160 Intake, IV Titration 400 Amount Potassium Chloride 10 meq 400 In Water For Injection 1 100ml.bag @ 50 mls/hr IVPB Q2H EKATERINA Rx#: [id number] Output: Urine 2190 1975 865 Other: Voiding Method Indwelling Catheter Indwelling Catheter Indwelling Catheter - Exam PHYSICAL EXAMINATION: GENERAL: Patient is on BiPAP in respiratory distress HEENT patient has bilateral cataracts and legally blind No scleral icterus. No conjunctival pallor. Normocephalic, atraumatic. No pharyngeal erythema. No thyromegaly. CARDIOVASCULAR: S1 and S2 present. No murmurs, rubs, or gallops. PULMONARY: Significant expiratory wheezing and exam decreased air entry into bilateral lung montano ABDOMEN: Soft, nontender, nondistended, normoactive bowel sounds. No palpable organomegaly. MUSCULOSKELETAL: No joint swelling or deformity. EXTREMITIES: No cyanosis, clubbing, or pedal edema. NEUROLOGICAL: Gross neurological examination did not reveal any focal deficits. SKIN: No rashes. - Labs CBC & Chem 7: 10/22/18 05:39 10/22/18 05:39 Labs: Abnormal Lab Results - Last 24 Hours (Table) 10/20/18 10/21/18 10/21/18 Range/Units 04:44 16:14 20:01 RBC (4.30-5.90) m/uL Hgb (13.0-17.5) gm/dL Hct (39.0-53.0) % Lymphocytes # (1.0-4.8) k/uL Sodium (137-145) mmol/L Chloride (98-107) mmol/L BUN (9-20) mg/dL Creatinine (0.66-1.25) mg/dL Glucose (74-99) mg/dL POC Glucose (mg/dL) 178 H 202 H (75-99) mg/dL Iron 11 L (65-175) ug/dL Iron Saturation 4.70 L (15.00-50.00) ALT (21-72) U/L Total Protein (6.3-8.2) g/dL Albumin (3.5-5.0) g/dL 10/21/18 10/22/18 10/22/18 Range/Units 23:38 00:40 04:04 RBC (4.30-5.90) m/uL Hgb (13.0-17.5) gm/dL Hct (39.0-53.0) % Lymphocytes # (1.0-4.8) k/uL Sodium (137-145) mmol/L Chloride (98-107) mmol/L BUN (9-20) mg/dL Creatinine (0.66-1.25) mg/dL Glucose (74-99) mg/dL POC Glucose (mg/dL) 150 H 151 H 145 H (75-99) mg/dL Iron (65-175) ug/dL Iron Saturation (15.00-50.00) ALT (21-72) U/L Total Protein (6.3-8.2) g/dL Albumin (3.5-5.0) g/dL 10/22/18 10/22/18 10/22/18 Range/Units 05:39 05:39 07:57 RBC 2.75 L (4.30-5.90) m/uL Hgb 7.7 L (13.0-17.5) gm/dL Hct 24.7 L (39.0-53.0) % Lymphocytes # 0.5 L (1.0-4.8) k/uL Sodium 147 H (137-145) mmol/L Chloride 111 H (98-107) mmol/L BUN 83 H (9-20) mg/dL Creatinine 2.39 H (0.66-1.25) mg/dL Glucose 148 H (74-99) mg/dL POC Glucose (mg/dL) 175 H (75-99) mg/dL Iron (65-175) ug/dL Iron Saturation (15.00-50.00) ALT 19 L (21-72) U/L Total Protein 5.1 L (6.3-8.2) g/dL Albumin 2.8 L (3.5-5.0) g/dL 10/22/18 Range/Units 12:18 RBC (4.30-5.90) m/uL Hgb (13.0-17.5) gm/dL Hct (39.0-53.0) % Lymphocytes # (1.0-4.8) k/uL Sodium (137-145) mmol/L Chloride (98-107) mmol/L BUN (9-20) mg/dL Creatinine (0.66-1.25) mg/dL Glucose (74-99) mg/dL POC Glucose (mg/dL) 173 H (75-99) mg/dL Iron (65-175) ug/dL Iron Saturation (15.00-50.00) ALT (21-72) U/L Total Protein (6.3-8.2) g/dL Albumin (3.5-5.0) g/dL Microbiology - Last 24 Hours (Table) 10/19/18 11:15 Blood Culture - Preliminary Blood No Growth after 72 hours Assessment and Plan Plan: -Acute hypoxic and hypercapnic on chronic hypercapnic respiratory failure: Most probably 70 COPD exacerbation CHF cannot be ruled out and patient is on IV Lasix along with the systemic steroids. Pulmonology is recommending antibiotics as mentioned above. He remains on BiPAP. Patient does have moderate pericardial effusion, no tamponade. Cardiology monitoring -Acute on chronic kidney disease stage III acute renal failure probably prerenal azotemia from heart failure exacerbation expected to improve with IV Lasix monitor serum creatinine and electrolytes. -Acute metabolic encephalopathy secondary to above -Metabolic acidosis secondary to uremia patient will be started on oral bicarbonate supplementation -Legally blind with bilateral cataracts and history of glaucoma as well next and have an hypertension next and have an hyperlipidemia -Generalized deconditioning -Chronic respiratory failure basically secondary to COPD and is significantly low lung volumes. -Type 2 diabetes mellitus Patient will need further neurologic GI and DVT prophylaxis
[2018-10-22] MEDS: MAGNESIUM SULFATE-D5W PMX 1 GM in DEXTROSE/WATER 1 100ML.BAG IVPB SCH ×2 (16:26→19:35)
[2018-10-22 16:46] LABS: Glucose,Whole Blood 153 mg/dL (75-99)
[2018-10-22 20:04] LABS: Glucose,Whole Blood 151 mg/dL (75-99)
[2018-10-23 00:07] LABS: Glucose,Whole Blood 165 mg/dL (75-99)
[2018-10-23] MEDS: HEPARIN SODIUM,PORCINE 5,000 UNIT/ML 1 ML VIAL SQ SCH ×2 (00:08→08:52)
[2018-10-23] MEDS: INSULIN ASPART (NovoLOG) 100 UNIT/ML VIAL SQ SCH ×4 (00:08→13:11)
[2018-10-23] MEDS: LORazepam 2 MG/ML INJ IV PRN (00:32)
[2018-10-23] MEDS ORDERED: HALOPERIDOL LACTATE 5 MG/ML 1 ML VIAL IVP PRN (02:41)
[2018-10-23 04:11] LABS: Glucose,Whole Blood 170 mg/dL (75-99)
[2018-10-23 06:25] LABS: Basophils % (A) 0 %; Eosinophils % (A) 0 %; HCT 27.9 % (39.0-53.0); HGB 8.2 gm/dL (13.0-17.5); Hypochromasia Moderate; Lymphocytes # (A) 0.4 k/uL (1.0-4.8); Lymphocytes % (A) 7 %; MCH 27.3 pg (25.0-35.0); MCHC 29.5 g/dL (31.0-37.0); MCV 92.3 fL (80.0-100.0); Mean Platelet Volume 6.9; Monocytes # (A) 0.2 k/uL (0-1.0); Monocytes % (A) 3 %; Neutrophils # (A) 5.4 k/uL (1.3-7.7); Neutrophils % (A) 88 %; Platelet Count 426 k/uL (150-450); RBC 3.03 m/uL (4.30-5.90); RDW 14.4 % (11.5-15.5); WBC 6.2 k/uL (3.8-10.6)
[2018-10-23 06:39] LABS: Albumin 2.8 g/dL (3.5-5.0); Calcium 8.6 mg/dL (8.4-10.2); Magnesium 2.3 mg/dL (1.6-2.3); Potassium 3.9 mmol/L (3.5-5.1); Total Bilirubin 0.8 mg/dL (0.2-1.3); Total Protein 5.1 g/dL (6.3-8.2)
[2018-10-23] MEDS ORDERED: Potassium Replacement Protocol 1 EACH MISC MISCELLANE PRN (06:58)
--- NOTE | 2018-10-23 07:55 | XR ---
EXAMINATION TYPE: XR chest 1V portable DATE OF EXAM: 10/23/2018 HISTORY: Shortness of breath. COMPARISON: 10/21/2018 TECHNIQUE: Single view of the chest is submitted. FINDINGS: Demonstrated are scattered senescent parenchymal change. Basilar and perihilar infiltrates with small effusions persist. Overall no change. Continued pulmonar y venous congestion. The heart is stable. Hilar and mediastinal structures are within normal limits. Degenerative changes are seen of the dorsal spine. IMPRESSION: 1. Stable chest.
[2018-10-23] MEDS: IPRATROPIUM-ALBUTEROL 3 ML NEB INHALATION SCH ×3 (08:04→15:40)
[2018-10-23] MEDS: LEVOFLOXACIN 750MG-D5W PMX 750 MG in DEXTROSE/WATER 1 150ML.BAG IVPB SCH (08:46)
[2018-10-23] MEDS: PIPERACILLIN-TAZOBACTAM 3.375 GM in SODIUM CHLORIDE 0.9% 100 ML IVPB SCH (08:47)
[2018-10-23] MEDS: POTASSIUM CHLORIDE 10 MEQ in WATER FOR INJECTION 1 100ML.BAG IVPB SCH ×2 (08:47→10:27)
[2018-10-23 08:48] LABS: Glucose,Whole Blood 192 mg/dL (75-99)
[2018-10-23] MEDS: methylPREDNISolone SOD SUCCI 40 MG/ML 1 ML VIAL IV SCH (08:51)
[2018-10-23] MEDS: FAMOTIDINE 20 MG/2 ML VIAL IV SCH (08:52)
[2018-10-23] MEDS: NITROGLYCERIN OINT 1 INCH/GM PACKET TOPICAL SCH ×2 (08:52→13:54)
[2018-10-23] MEDS: ASPIRIN 300 MG SUPP RECTAL SCH (08:52)
[2018-10-23] MEDS: FUROSEMIDE 10 MG/ML 4 ML VIAL IV SCH (08:52)
[2018-10-23] MEDS: DEXTROSE 5% IN WATER 1,000 ML IV SCH (08:53)
[2018-10-23 09:22] VITALS: TEMP 97.5
--- NOTE | 2018-10-23 10:29 | P.PN ---
Subjective Patient is seen in follow-up for acute kidney injury. Patient has chronic kidney disease stage III secondary to cardiorenal syndrome and possibly diabetic kidney disease with baseline creatinine in the range of 1.4-1.6. Creatinine today is stable at 2.35. Patient is nonoliguric. He is maintained on Lasix 40 mg IV 2 times daily. Patient remains confused. Oral intake is poor. Sodium level is 148. Vital signs are stable. General: The patient appeared well nourished and normally developed. HEENT: Head exam is unremarkable. Neck is without jugular venous distension. LUNGS: Lungs are clear to auscultation and percussion. Breath sounds decreased. HEART: Rate and Rhythm are regular. First and second heart sounds normal. No murmurs, rubs or gallops. ABDOMEN: Abdominal exam reveals normal bowel sounds. Non-tender and non- distended. No evidence of peritonitis. EXTREMITITES: Trace edema. Objective - Vital Signs Vital signs: Vital Signs Temp 97.5 F L 10/23/18 08:00 Pulse 100 10/23/18 10:00 Resp 17 10/23/18 10:00 BP 165/70 10/23/18 10:00 Pulse Ox 98 10/23/18 10:00 Intake & Output 10/22/18 10/23/18 10/23/18 18:59 06:59 18:59 Intake Total 660 750 550 Output Total 1215 1300 500 Balance -555 -550 50 Weight 81.8 kg Intake: IV 660 650 350 Levaquin 150 Piperacillin-Tazobactam 3 50 100 100 .375 gm In Sodium Chloride 0.9% 100 ml @ 25 mls/hr IVPB Q12HR EKATERINA Rx #:[id number] d5w 450 550 100 ns 160 Intake, IV Titration 100 200 Amount Magnesium Sulfate-D5w Pmx 100 1 gm In Dextrose/Water 1 100ml.bag @ 100 mls/hr IVPB Q1H EKATERINA Rx#: [id number] Potassium Chloride 10 meq 200 In Water For Injection 1 100ml.bag @ 100 mls/hr IVPB Q1H EKATERINA Rx#: [id number] Output: Urine 1215 1300 500 Other: Voiding Method Indwelling Catheter Indwelling Catheter Indwelling Catheter # Voids 1 - Labs CBC & Chem 7: 10/23/18 06:04 10/23/18 06:04 Labs: Abnormal Lab Results - Last 24 Hours (Table) 10/22/18 10/22/18 10/22/18 Range/Units 12:18 16:44 19:51 RBC (4.30-5.90) m/uL Hgb (13.0-17.5) gm/dL Hct (39.0-53.0) % MCHC (31.0-37.0) g/dL Lymphocytes # (1.0-4.8) k/uL Sodium (137-145) mmol/L Chloride (98-107) mmol/L BUN (9-20) mg/dL Creatinine (0.66-1.25) mg/dL Glucose (74-99) mg/dL POC Glucose (mg/dL) 173 H 153 H 151 H (75-99) mg/dL Total Protein (6.3-8.2) g/dL Albumin (3.5-5.0) g/dL 10/23/18 10/23/18 10/23/18 Range/Units 00:04 03:57 06:04 RBC (4.30-5.90) m/uL Hgb (13.0-17.5) gm/dL Hct (39.0-53.0) % MCHC (31.0-37.0) g/dL Lymphocytes # (1.0-4.8) k/uL Sodium 148 H (137-145) mmol/L Chloride 110 H (98-107) mmol/L BUN 90 H (9-20) mg/dL Creatinine 2.35 H (0.66-1.25) mg/dL Glucose 174 H (74-99) mg/dL POC Glucose (mg/dL) 165 H 170 H (75-99) mg/dL Total Protein 5.1 L (6.3-8.2) g/dL Albumin 2.8 L (3.5-5.0) g/dL 10/23/18 10/23/18 Range/Units 06:04 08:46 RBC 3.03 L (4.30-5.90) m/uL Hgb 8.2 L (13.0-17.5) gm/dL Hct 27.9 L (39.0-53.0) % MCHC 29.5 L (31.0-37.0) g/dL Lymphocytes # 0.4 L (1.0-4.8) k/uL Sodium (137-145) mmol/L Chloride (98-107) mmol/L BUN (9-20) mg/dL Creatinine (0.66-1.25) mg/dL Glucose (74-99) mg/dL POC Glucose (mg/dL) 192 H (75-99) mg/dL Total Protein (6.3-8.2) g/dL Albumin (3.5-5.0) g/dL Microbiology - Last 24 Hours (Table) 10/19/18 11:15 Blood Culture - Preliminary Blood No Growth after 72 hours Assessment and Plan Plan: Assessment: 1. Acute kidney injury mostly prerenal secondary to cardiorenal syndrome. Creatinine stable at 2.35 today. 2. Volume overload. Improving with diuresis. 3. Diastolic CHF with moderate aortic stenosis. 4. Chronic kidney disease stage III with baseline creatinine in the range of 1.4-1.6 secondary to cardiorenal syndrome and possibly diabetic kidney disease. 5. Hyponatremia secondary to lack of water intake. 6. Hypokalemia secondary to diuresis. Better. 7. Acute hypoxic respiratory failure secondary to volume overload as well as COPD exacerbation. 8. Metabolic acidosis secondary to acute kidney injury. Resolved. Plan: Continue Lasix 40 mg IV twice daily. Potassium being replaced. Increase rate of D5W to 100 mL an hour. Continue to monitor renal function and urine output.
[2018-10-23 11:31] VITALS: BMI 29.0
[2018-10-23 12:10] LABS: Glucose,Whole Blood 132 mg/dL (75-99)
--- NOTE | 2018-10-23 12:35 | PCN ---
PROCEDURE NOTE This patient remains the lethargic response minimally. History was obtained from the nurse. Patient cardiac-felipe otherwise remains stable. He is on BiPAP. Blood pressure is 165/70 mmHg. First and second heart sounds are heard. There is ejection systolic murmur noted. Lungs reveal bilateral scattered wheezes. Patient is being considered for possible DNR and hospice care. In view of that, we will continue the comfort and supportive care. MMODL / IJN: [id number] /
--- NOTE | 2018-10-23 13:32 | P.PN ---
Subjective 28-year-old admitted with respiratory failure most probably secondary to CHF exacerbation patient is also being treated for presumed exacerbation patient has multiple medical problems patient the overall prognosis is extremely poor functionality is externally poor bedbound legally blind. Patient has a legal guardian will discuss the legal guardian regarding DO NOT RESUSCITATE as well as hospice care patient is presently on BiPAP diarrhea wheezing well doesn't appear to have improved significantly compared to yesterday. Unable to obtain much of the history from the patient 10/21/2018 Patient is bit more arousable today but his respiratory status did not change significantly patient is in and out of BiPAP was a massive cannula yesterday h ave to go back on BiPAP again occasional agitation episodes. 10/22/2018 Patient is on a BiPAP mental status no significant improvement. Had a lengthy discussion with the public guardian regarding DO NOT RESUSCITATE, comfort care and hospice. Will await their decision. 10/23/2018 Patient is I off BiPAP patient is saturating 100% on 5 L of oxygen which we'll taper down patient will be transferred out of ICU patient is unable to provide any history to me patient remains lethargic, remains in mild respiratory distress appears to be in pain as well. Awaiting court order for DO NOT RESUSCITATE and possible hospice. Review of systems: Unable to obtain due to his clinical condition All inpatient medications were reviewed and appropriate changes in these medications as dictated in the interval history and assessment and plan. Objective - Vital Signs Vital signs: Vital Signs Temp 97.5 F L 10/23/18 12:00 Pulse 93 10/23/18 13:00 Resp 18 10/23/18 13:00 BP 123/65 10/23/18 13:00 Pulse Ox 100 10/23/18 13:00 Intake & Output 10/22/18 10/23/18 10/23/18 18:59 06:59 18:59 Intake Total 660 750 850 Output Total 1215 1300 675 Balance -555 -550 175 Weight 81.8 kg 81.8 kg Intake: IV 660 650 650 Levaquin 150 Piperacillin-Tazobactam 3 50 100 100 .375 gm In Sodium Chloride 0.9% 100 ml @ 25 mls/hr IVPB Q12HR COUNT INCLUDES THE [facility] Rx #:[id number] d5w 450 550 400 ns 160 Intake, IV Titration 100 200 Amount Magnesium Sulfate-D5w Pmx 100 1 gm In Dextrose/Water 1 100ml.bag @ 100 mls/hr IVPB Q1H [facility] Rx#: [id number] Potassium Chloride 10 meq 200 In Water For Injection 1 100ml.bag @ 100 mls/hr IVPB Q1H [facility] Rx#: [id number] Output: Urine 1215 1300 675 Other: Voiding Method Indwelling Catheter Indwelling Catheter Indwelling Catheter # Voids 1 - Exam PHYSICAL EXAMINATION: GENERAL: Patient is an aspirin cannula oxygen and is in mild respiratory distress HEENT patient has bilateral cataracts and legally blind No scleral icterus. No conjunctival pallor. Normocephalic, atraumatic. No pharyngeal erythema. No thyromegaly. CARDIOVASCULAR: S1 and S2 present. No murmurs, rubs, or gallops. PULMONARY: Significant expiratory wheezing and exam decreased air entry into bilateral lung montano ABDOMEN: Soft, nontender, nondistended, normoactive bowel sounds. No palpable organomegaly. MUSCULOSKELETAL: No joint swelling or deformity. EXTREMITIES: No cyanosis, clubbing, or pedal edema. NEUROLOGICAL: Gross neurological examination did not reveal any focal deficits. SKIN: No rashes. - Labs CBC & Chem 7: 10/23/18 06:04 10/23/18 06:04 Labs: Abnormal Lab Results - Last 24 Hours (Table) 10/22/18 10/22/18 10/23/18 Range/Units 16:44 19:51 00:04 RBC (4.30-5.90) m/uL Hgb (13.0-17.5) gm/dL Hct (39.0-53.0) % MCHC (31.0-37.0) g/dL Lymphocytes # (1.0-4.8) k/uL Sodium (137-145) mmol/L Chloride (98-107) mmol/L BUN (9-20) mg/dL Creatinine (0.66-1.25) mg/dL Glucose (74-99) mg/dL POC Glucose (mg/dL) 153 H 151 H 165 H (75-99) mg/dL Total Protein (6.3-8.2) g/dL Albumin (3.5-5.0) g/dL 10/23/18 10/23/18 10/23/18 Range/Units 03:57 06:04 06:04 RBC 3.03 L (4.30-5.90) m/uL Hgb 8.2 L (13.0-17.5) gm/dL Hct 27.9 L (39.0-53.0) % MCHC 29.5 L (31.0-37.0) g/dL Lymphocytes # 0.4 L (1.0-4.8) k/uL Sodium 148 H (137-145) mmol/L Chloride 110 H (98-107) mmol/L BUN 90 H (9-20) mg/dL Creatinine 2.35 H (0.66-1.25) mg/dL Glucose 174 H (74-99) mg/dL POC Glucose (mg/dL) 170 H (75-99) mg/dL Total Protein 5.1 L (6.3-8.2) g/dL Albumin 2.8 L (3.5-5.0) g/dL 10/23/18 10/23/18 Range/Units 08:46 12:07 RBC (4.30-5.90) m/uL Hgb (13.0-17.5) gm/dL Hct (39.0-53.0) % MCHC (31.0-37.0) g/dL Lymphocytes # (1.0-4.8) k/uL Sodium (137-145) mmol/L Chloride (98-107) mmol/L BUN (9-20) mg/dL Creatinine (0.66-1.25) mg/dL Glucose (74-99) mg/dL POC Glucose (mg/dL) 192 H 132 H (75-99) mg/dL Total Protein (6.3-8.2) g/dL Albumin (3.5-5.0) g/dL Microbiology - Last 24 Hours (Table) 10/19/18 11:15 Blood Culture - Preliminary Blood No Growth after 72 hours Assessment and Plan Plan: -Acute hypoxic and hypercapnic on chronic hypercapnic respiratory failure: Most probably 70 COPD exacerbation CHF cannot be ruled out and patient is on IV Lasix along with the systemic steroids. Pulmonology is recommending antibiotics as mentioned above. He remains on BiPAP. Patient does have moderate pericardial effusion, no tamponade. Cardiology monitoring. Patient was pretty status did improve but his overall prognosis is extremely poor awaiting court order for DO NOT RESUSCITATE or even hospice -Acute on chronic kidney disease stage III acute renal failure probably prerenal azotemia from heart failure exacerbation expected to improve with IV Lasix monitor serum creatinine and electrolytes. -Acute metabolic encephalopathy secondary to above -Metabolic acidosis secondary to uremia patient will be started on oral bicarbonate supplementation -Legally blind with bilateral cataracts and history of glaucoma as well next and have an hypertension next and have an hyperlipidemia -Generalized deconditioning -Chronic respiratory failure basically secondary to COPD and is significantly low lung volumes. -Type 2 diabetes mellitus on GI and DVT prophylaxis
--- NOTE | 2018-10-23 13:55 | P.PN ---
Subjective Progress Note Date: 10/23/18 Principal diagnosis: Acute on chronic hypoxic respiratory failure secondary to COPD, congestive heart failure, and suspect aspiration pneumonia involving the right lower lobe and l eft lower lobe. 73-year-old male patient came into the emergency department because of worsening shortness of breath. He is a very poor historian. He has multiple medical pounds and comorbidities. He is typically on 5 L of oxygen by nasal cannula and was reported that his pulse ox was low. He was having difficulties with breathing. Among his comorbidities, the patient has had previous history of CVA with some right-sided deficits. He has chronic stage III kidney disease. He is legally blind and has underlying diabetes mellitus type 2. Is known to have COPD and congestion heart failure essentially in the form of diastolic heart failure and has chronic atrial fibrillation. He has hypertension and hyperlipidemia in addition. At the time of his arrival, the patient's BNP level was quite elevated at 15,400. He had a component of non-anion gap metabolic acidosis with a serum bicarbonate of 17. He has also an acute kidney injury with a creatinine of 2.3. Note that the patient was discharged from the hospital yesterday. He was under the care of Dr. adams where he was magda arboleda for metabolic encephalopathy that was attributed to his renal failure as the patient a component of acute kidney injury. His presentation was mainly feeling lethargic and weak and not eating enough. His creatinine went up to 2.8. His KAMILA inhibitor was discontinued. He was given IV fluids. He felt better and he was discharged home. At time of discharge, he was asked to take and she'll for dietary supplement in addition to a combination of Lopressor and amiodarone for rate control, Actos for blood sugar, lipids of hyperlipidemia, lactulose for constipation, oral iron tablets supplements, Protonix 40 mg by mouth daily and aspirin 81 mg by mouth daily. He is also on Lipitor hyperlipidemia. Uses DuoNeb nebulized treatments around the clock. His current EKG showing a atrial fibrillation with a right bundle branch block pattern. His chest x-ray is consistent with cardiomegaly and small left-sided pleural effusion and developing right lower lobe infiltrate. The lung was essentially small. The patient was placed on BiPAP. The patient was started on IV Lasix. The patient was admitted to the medical floor under the care of Dr. Rendon. He was also started on IV Solu-Medrol. Lasix is currently at 40 mg every 8 hours. On today's evaluation of 10/20/2018 I'm seeing this patient for a follow-up. He is lethargic yet arousable. He remains on BiPAP throughout the night yesterday and this morning he remains on BiPAP at a pressure of 12/5 cm of water with an FiO2 of 50%. Chest x-ray still showing CHF and noted the patient's proBNP level was elevated at a time of admission. Echocardiogram was done and the patient was found to have a large pericardial effusion for that reason a cardiac consultation was ordered and the patient will be seen again by Dr. Costello. Meanwhile, the patient was started on a bicarb drip infusion yesterday regarding his underlying metabolic acidosis. Bicarb infusion is running at a rate of 6 an hour. The patient's BNP today is at 80 with a creatinine of 2.3. His serum bicarb level is up to 21. He is also being diuresis with IV Lasix. Is receiving Lasix at a dose of 40 mg every 8 hours. He is producing good amount of urine output. No significant bronchospasm and wheezing. I think the predominant failure was related to CHF and the presence of pericardial effusion could've contributed to his condition. No signs of any temporal for now. The patient was also was seen by nephrology On 10/21/2018, the patient slightly more awake and arousable compared to yesterday. He was taken off the BiPAP and he is maintaining good oxygen saturation while being on oxygen by nasal cannula at 5 L per minute. Chest x- ray still showing CHF, cardiomegaly, pleural effusions in addition to consolidation of the lung bases. The patient's presentation is typical of CHF and I'm suspecting underlying pneumonia in addition. His last bronchus spastic and wheezy compared to yesterday. Echocardiogram showed a moderate-sized pericardial effusion and there is no temporal another this point in time. The patient is still on IV Lasix. The patient was given bicarb infusion and serum bicarb normalized. He is still on Lasix 40 mg IV push every 8 hours. He is in a negative fluid balance. Less bronchospastic and wheezy. As the patient is b ecoming more awake, moderate consider starting some oral feeds on this patient. Otherwise, he is comfortable laying down comfortably in bed with on a significant complaints. His hemoglobin is at 8. White cell count of 8.7. Creatinine is at 2.3 which is stable compared to yesterday Reevaluated today on 10/22/2018, patient remains confused, off BiPAP presently, he is on nasal cannula, 5 L/m. Chest x-ray continues to show congestive heart failure and some component of pneumonia. Patient remains on diuretics, antibiotics, seems to be improving clinically. His last echocardiogram did show moderate sized pericardial effusion and he is still on IV Lasix. Tolerating Lasix 40 mg IV push every 8 hours, patient seems to be on nasal cannula, in no distress. However his mental status is poor. And the patient is a bit encephalopathic. CBC showed hemoglobin of 7.73% of 6 sodium is a bit elevated at 147 BUN is 83 creatinine 2.39. Reevaluated today on 10/23/2018, patient remains in the ICU, presently on 5 L nasal cannula, off BiPAP, hemodynamically stable, not requiring any pressors. Patient remains confused and intermittently lethargic, always calling for help, but denies being short of breath, denies having any pain. Patient does not communicate well, and does not express what he needs help for. Labs were all reviewed, patient is hypernatremic, BUN is 90 creatinine 2.35, and potassium is 3.9 sodium is 148. CBC is relatively normal except for hemoglobin of 8.2. Patient is afebrile, and his blood pressure is stable. Seems to be quite comfortable on few liters nasal cannula. Objective - Vital Signs Vital signs: Vital Signs Temp 97.5 F L 10/23/18 12:00 Pulse 93 10/23/18 13:00 Resp 18 10/23/18 13:00 BP 123/65 10/23/18 13:00 Pulse Ox 100 10/23/18 13:00 Intake & Output 10/22/18 10/23/18 10/23/18 18:59 06:59 18:59 Intake Total 660 750 850 Output Total 1215 1300 675 Balance -555 -550 175 Weight 81.8 kg 81.8 kg Intake: IV 660 650 650 Levaquin 150 Piperacillin-Tazobactam 3 50 100 100 .375 gm In Sodium Chloride 0.9% 100 ml @ 25 mls/hr IVPB Q12HR [facility] Rx #:[id number] d5w 450 550 400 ns 160 Intake, IV Titration 100 200 Amount Magnesium Sulfate-D5w Pmx 100 1 gm In Dextrose/Water 1 100ml.bag @ 100 mls/hr IVPB Q1H [facility] Rx#: [id number] Potassium Chloride 10 meq 200 In Water For Injection 1 100ml.bag @ 100 mls/hr IVPB Q1H [facility] Rx#: [id number] Output: Urine 1215 1300 675 Other: Voiding Method Indwelling Catheter Indwelling Catheter Indwelling Catheter # Voids 1 - Exam Physical Exam: Revealed a 73-year-old white male in no distress, legally blind. Presently on 5 L via nasal cannula Head: Atraumatic, normocephalic. HEENT:[Neck is supple.] [No neck masses.] [No thyromegaly.] [No JVD.] There is evidence of chronic opacification of both eyes, no icterus. Chest: Minimal crackles at the bases, no rhonchi and no wheezes. Cardiac Exam: [Normal S1 and S2, no S3 gallop, no murmur.] Abdomen: Obese, [Soft, nontender, no megaly, no rebound, no guarding, normal bowel sounds.] Extremities: [No clubbing, 1+ bipedal edema, no cyanosis.] Neurological Exam: Awake, follows simple instructions, does not verbalize long sentences. Keeps asking for help but he doesn't know why Psychiatric: Flat affect, depressed mood, poor mental status. Skin: No rashes, no evidence of cellulitis. - Labs CBC & Chem 7: 10/23/18 06:04 10/23/18 06:04 Labs: Abnormal Lab Results - Last 24 Hours (Table) 10/22/18 10/22/18 10/23/18 Range/Units 16:44 19:51 00:04 RBC (4.30-5.90) m/uL Hgb (13.0-17.5) gm/dL Hct (39.0-53.0) % MCHC (31.0-37.0) g/dL Lymphocytes # (1.0-4.8) k/uL Sodium (137-145) mmol/L Chloride (98-107) mmol/L BUN (9-20) mg/dL Creatinine (0.66-1.25) mg/dL Glucose (74-99) mg/dL POC Glucose (mg/dL) 153 H 151 H 165 H (75-99) mg/dL Total Protein (6.3-8.2) g/dL Albumin (3.5-5.0) g/dL 10/23/18 10/23/18 10/23/18 Range/Units 03:57 06:04 06:04 RBC 3.03 L (4.30-5.90) m/uL Hgb 8.2 L (13.0-17.5) gm/dL Hct 27.9 L (39.0-53.0) % MCHC 29.5 L (31.0-37.0) g/dL Lymphocytes # 0.4 L (1.0-4.8) k/uL Sodium 148 H (137-145) mmol/L Chloride 110 H (98-107) mmol/L BUN 90 H (9-20) mg/dL Creatinine 2.35 H (0.66-1.25) mg/dL Glucose 174 H (74-99) mg/dL POC Glucose (mg/dL) 170 H (75-99) mg/dL Total Protein 5.1 L (6.3-8.2) g/dL Albumin 2.8 L (3.5-5.0) g/dL 10/23/18 10/23/18 Range/Units 08:46 12:07 RBC (4.30-5.90) m/uL Hgb (13.0-17.5) gm/dL Hct (39.0-53.0) % MCHC (31.0-37.0) g/dL Lymphocytes # (1.0-4.8) k/uL Sodium (137-145) mmol/L Chloride (98-107) mmol/L BUN (9-20) mg/dL Creatinine (0.66-1.25) mg/dL Glucose (74-99) mg/dL POC Glucose (mg/dL) 192 H 132 H (75-99) mg/dL Total Protein (6.3-8.2) g/dL Albumin (3.5-5.0) g/dL Microbiology - Last 24 Hours (Table) 10/19/18 11:15 Blood Culture - Preliminary Blood No Growth after 72 hours Assessment and Plan Assessment: Impression: 1 acute on chronic hypoxic respiratory failure, multifactorial, secondary to congestive heart failure/diastolic dysfunction, acute exacerbation of COPD, and strongly suspect aspiration pneumonia. 2 moderate pericardial effusion but no tamponade. Being addressed by cardiology. 3 acute on chronic kidney disease, being followed by nephrology. Patient has known history of chronic kidney disease GFR of 46. Likely secondary to nephrosclerosis or diabetic nephropathy. 4 altered mental status, suspect some component of metabolic encephalopathy. 5 diastolic congestive heart failure 6 legally blind 7 chronic anemia 8 type 2 diabetes with complications including nephropathy and retinopathy 9 history of hypertension 10 medical debility Recommendation: Continue present supportive care measures, continue to titrate FiO2 accordingly keep saturation above 90%, continue antibiotics, diuretics, will arrange for the patient to transfer out of the ICU to a monitor bed on selective. We'll continue to follow, prognosis group home is definitely poor and guarded. Time with Patient: Less than 30
--- NOTE | 2018-10-23 15:26 | P.DS ---
Providers Date of admission: 10/19/18 09:58 Attending physician: Luis Rendon Consults: 10/19/18 10:00 Consult Physician Urgent Consulting Provider: Tremayne Milan Consult Reason/Comments: dyspnea, bipap Do you want consulting provider notified?: Yes Consult Physician Urgent Consulting Provider: Preston Tadeo Consult Reason/Comments: chf Do you want consulting provider notified?: Yes 10/19/18 13:07 Consult Physician Urgent Consulting Provider: Marly Bean Consult Reason/Comments: mariah Do you want consulting provider notified?: Yes Primary care physician: Leonides Azul Hospital Course: 28-year-old admitted with respiratory failure most probably secondary to CHF exacerbation patient is also being treated for presumed exacerbation patient has multiple medical problems patient the overall prognosis is extremely poor functionality is externally poor bedbound legally blind. Patient has a legal guardian will discuss the legal guardian regarding DO NOT RESUSCITATE as well as hospice care patient is presently on BiPAP diarrhea wheezing well doesn't appear to have improved significantly compared to yesterday. Unable to obtain much of the history from the patient 10/21/2018 Patient is bit more arousable today but his respiratory status did not change significantly patient is in and out of BiPAP was a massive cannula yesterday have to go back on BiPAP again occasional agitation episodes. 10/22/2018 Patient is on a BiPAP mental status no significant improvement. Had a lengthy discussion with the public guardian regarding DO NOT RESUSCITATE, comfort care and hospice. Will await their decision. 10/23/2018 Patient is I off BiPAP patient is saturating 100% on 5 L of oxygen which we'll taper down patient will be transferred out of ICU patient is unable to provide any history to me patient remains lethargic, remains in mild respiratory distress appears to be in pain as well. Awaiting court order for DO NOT RESUSCITATE and possible hospice. patient now has "order for DO NOT RESUSCITATE and patient is being made hospice as well and [facility] with [facility] physical exam Please refer to my progress note from today For other medical problems hospitalization course please refer to my progress note from today Patient Condition at Discharge: Serious Plan - Discharge Summary Discharge Rx Participant: No New Discharge Prescriptions: No Action Aspirin 81 mg PO DAILY@0900 Pantoprazole [Protonix] 40 mg PO DAILY@0900 Budesonide [Pulmicort] 1 mg INHALATION RT-BID@0900,2099 Ferrous Sulfate [Iron (65 MG Elemental)] 325 mg PO DAILY@0900 Lactulose 10 gm PO BID@899,2099 Ammonium Lactate Lotion [Lac-Hydrin 12% Lotion] 1 applic TOPICAL Q12H PRN PRN Reason: Dry Skin Atorvastatin Calcium [Lipitor] 10 mg PO HS@2099 Pioglitazone HCl [Actos] 15 mg PO DAILY@0900 Ipratropium-Albuterol Nebulize [Duoneb 0.5 mg-3 mg/3 ml Soln] 3 ml INHALATION RT-Q6H PRN PRN Reason: Shortness Of Breath Or Wheezing Amiodarone [Cordarone] 100 mg PO DAILY@0900 Citalopram Hydrobromide [CeleXA] 10 mg PO DAILY@0900 Lactose-Reduced Food [Ensure Plus] 120 ml PO TID@0900,1300,2099 Metoprolol Tartrate [Lopressor] 50 mg PO BID tab Discharge Medication List Aspirin 81 mg PO DAILY@89908/11/17 [History] Pantoprazole [Protonix] 40 mg PO DAILY@89908/20/17 [History] Budesonide [Pulmicort] 1 mg INHALATION RT-BID@0900,209901/08/18 [History] Ferrous Sulfate [Iron (65 MG Elemental)] 325 mg PO DAILY@89901/08/18 [History] Lactulose 10 gm PO BID@0900,209904/17/18 [History] Ammonium Lactate Lotion [Lac-Hydrin 12% Lotion] 1 applic TOPICAL Q12H PRN 05/10/18 [History] Atorvastatin Calcium [Lipitor] 10 mg PO HS@209905/10/18 [History] Pioglitazone HCl [Actos] 15 mg PO DAILY@89905/10/18 [History] Amiodarone [Cordarone] 100 mg PO DAILY@89907/24/18 [History] Citalopram Hydrobromide [CeleXA] 10 mg PO DAILY@89907/24/18 [History] Ipratropium-Albuterol Nebulize [Duoneb 0.5 mg-3 mg/3 ml Soln] 3 ml INHALATION RT-Q6H PRN 07/24/18 [History] Lactose-Reduced Food [Ensure Plus] 120 ml PO TID@0900,1300,2100 09/26/18 [History] Metoprolol Tartrate [Lopressor] 50 mg PO BID tab 10/18/18 [Rx] Follow up Appointment(s)/Referral(s): Leonides Azul MD [Primary Care Provider] - 1-2 days Discharge Disposition: DISCH TO HOSPICE MED FACILTY
[2018-10-23] MEDS ORDERED: PIPERACILLIN-TAZOBACTAM 3.375 GM in SODIUM CHLORIDE 0.9% 100 ML IVPB SCH (16:00)
[2018-10-23 18:18] VITALS: BP 173/80; PULSE 93; RESP 18
[2018-10-24] MEDS ORDERED: FAMOTIDINE 20 MG/2 ML VIAL IV SCH (09:00)
[2018-10-24] MEDS ORDERED: FUROSEMIDE 10 MG/ML 4 ML VIAL IV SCH (09:00)
--- NOTE | 2018-10-25 00:06 | CDI ---
Documentation Clarification Form Date: 10/25/18 From: Melecio Adhikari Phone: call to [phone] Admit Date: 10/19/2018 9:58:00 AM Patient Name: Denis Barajas Visit Number: [id number] Discharge Date: 10/23/2018 6:35:00 PM ATTENTION: The Clinical Documentation Specialists (CDI) and [facility] Coding Staff appreciate your assistance in clarifying documentation. Please respond to the clarification below the line at the bottom and electronically sign. The CDI & [facility] Coding staff will review the response and follow-up if needed. Please note: Queries are made part of the Legal Health Record. If you have any questions, please contact the author of this message via ITS. Dr. Luis Rendon, Pneumonia was documented in Progress notes on 10/22, 10/23 documented as Acute respiratory failure secondary to CHF, COPD and strongly suspect Aspiration Pneumonia by Dr. Santiago Muñoz. History/Risk Factors: pneumonia Clinical Indicators: X- ray: shows CHF along with component of Pneumonia. Antibiotics: Levaquin, Zosyn. In order to capture the severity of condition, please clarify if the condition signifies and you are treating for and SOB Relating to Aspiration pneumonia. Aspiration Pneumonia, identify if: Due to solids or liquids Due to anesthesia during L/D Due to anesthesia during puerperium Other, please specify Unable to determine If presence of Aspiration pneumonia, Please clarify Whether Patient's Respiratory failure Related to CHF Exacerbation or Aspiration Pneumonia or BOTH conditions contrubuting. pt was seen by dr baez on that admission LUIS ALBERTO
--- NOTE | 2018-10-29 01:20 | CDI ---
Documentation Clarification Form Date: 10/29/18 From: Melecio Adhikari Phone: call to [phone] Admit Date: 10/19/2018 9:58:00 AM Patient Name: Denis Barajas Visit Number: [id number] Discharge Date: 10/23/2018 6:35:00 PM ATTENTION: The Clinical Documentation Specialists (CDI) and [facility] Coding Staff appreciate your assistance in clarifying documentation. Please respond to the clarification below the line at the bottom and electronically sign. The CDI & [facility] Coding staff will review the response and follow-up if needed. Please note: Queries are made part of the Legal Health Record. If you have any questions, please contact the author of this message via ITS. Dr. Shreya Vázquez, Pneumonia was documented in Progress notes on 10/22, 10/23 documented as Acute respiratory failure secondary to CHF, COPD and strongly suspect Aspiration Pneumonia by Dr. Santiago Muñoz. History/Risk Factors: pneumonia Clinical Indicators: X- ray: shows CHF along with component of Pneumonia. Antibiotics: Levaquin, Zosyn. In order to capture the severity of condition, please clarify if the condition signifies and you are treating for: Aspiration Pneumonia, identify if: Due to solids or liquids Other, please specify Unable to determine If presence of Aspiration pneumonia, Please clarify Whether Patient's Respiratory failure Related to CHF Exacerbation or Aspiration Pneumonia or BOTH conditions contrubuting MTDD
== END 2018-10-23 18:35 | DRG 291 ==
LOC: EC 08:40 → 3SCARD 09:58 → 2SICU 16:09
PROVIDERS: ADMIT Hospitalist; ATTEND Hospitalist
PROC: 5A09457 Assistance with Respiratory Ventilation, 24-96 Consecutive Hours, Continuous Positive Airway Pressure (ICD-10-PCS; principal; 2018-10-19)
PROC: 05HD33Z Insertion of Infusion Device into Right Cephalic Vein, Percutaneous Approach (ICD-10-PCS; 2018-10-22 13:00)
DX: I13.0 Hypertensive heart and chronic kidney disease with heart failure and stage 1 through stage 4 chronic kidney disease, or unspecified chronic kidney disease (principal); I50.33 Acute on chronic diastolic (congestive) heart failure; J96.21 Acute and chronic respiratory failure with hypoxia; G93.41 Metabolic encephalopathy; J96.22 Acute and chronic respiratory failure with hypercapnia; J69.0 Pneumonitis due to inhalation of food and vomit; N17.9 Acute kidney failure, unspecified; J44.1 Chronic obstructive pulmonary disease with (acute) exacerbation; J44.0 Chronic obstructive pulmonary disease with (acute) lower respiratory infection; E87.2 Acidosis; E87.1 Hypo-osmolality and hyponatremia; E87.0 Hyperosmolality and hypernatremia; I69.351 Hemiplegia and hemiparesis following cerebral infarction affecting right dominant side; N18.3 Chronic kidney disease, stage 3 (moderate); D64.9 Anemia, unspecified; R53.81 Other malaise; T50.2X5A Adverse effect of carbonic-anhydrase inhibitors, benzothiadiazides and other diuretics, initial encounter; E87.6 Hypokalemia; Z66 Do not resuscitate; Z51.5 Encounter for palliative care; E11.21 Type 2 diabetes mellitus with diabetic nephropathy; E11.22 Type 2 diabetes mellitus with diabetic chronic kidney disease; E11.36 Type 2 diabetes mellitus with diabetic cataract; E78.5 Hyperlipidemia, unspecified; E87.5 Hyperkalemia; F32.9 Major depressive disorder, single episode, unspecified; F41.9 Anxiety disorder, unspecified; I35.0 Nonrheumatic aortic (valve) stenosis; K21.9 Gastro-esophageal reflux disease without esophagitis; K59.00 Constipation, unspecified; H54.8 Legal blindness, as defined in USA; I45.10 Unspecified right bundle-branch block; H40.9 Unspecified glaucoma; R15.9 Full incontinence of feces; I48.0 Paroxysmal atrial fibrillation; I71.2 Thoracic aortic aneurysm, without rupture; Z79.82 Long term (current) use of aspirin; Z74.01 Bed confinement status; Z79.84 Long term (current) use of oral hypoglycemic drugs; Z79.899 Other long term (current) drug therapy; Z83.3 Family history of diabetes mellitus; Z87.891 Personal history of nicotine dependence; Z91.81 History of falling; Z88.5 Allergy status to narcotic agent; Z87.440 Personal history of urinary (tract) infections; Z90.49 Acquired absence of other specified parts of digestive tract; Z87.01 Personal history of pneumonia (recurrent); Z86.2 Personal history of diseases of the blood and blood-forming organs and certain disorders involving the immune mechanism; Z98.42 Cataract extraction status, left eye; Z98.41 Cataract extraction status, right eye
CPT/HCPCS: 36410; 36415; 36600; 71045; 76937; 80048; 80053; 80306; 82140; 82805; 83540; 83550; 83735; 83880; 84100; 84484; 85025; 85027; 85610; 85730; 87040; 93005; 93306; 94640; 94660; 94760; 96365; 96375; 99291